=== PATIENT | male | born 1950 | race Caucasian/White ===

== ENCOUNTER 2020-01-21 08:01 | Inpatient (IN) | payer MEDICARE, SELFPAY ==
[2020-01-21] VITALS (53 sets, daily range): BP systolic 143–219; BP diastolic 56–133; PULSE 64–106; RESP 8–33; TEMP 36–37.1; O2SAT 90–100; BMI 30.8
--- NOTE | ~2020-01-21 | XR_ITS ---
EXAMINATION: XR chest 1V portable EXAM DATE: 01/31/2020 09:42 INDICATION: Hypertension. Stroke/bypass. CHF. TECHNIQUE: Portable AP frontal chest x-ray was obtained. Comparison is made to prior examination from 01/28/2020. FINDINGS: Sternotomy wires are present without findings to suggest sternal dehiscence. Improvement in the mild cardiomegaly. Improvement in the pulmonary vascular congestion and pulmonary edema. Still m ild pulmonary edema suspected along with small left pleural effusion. No pneumothorax or confluent co nsolidation. There are no osseous abnormalities identified. IMPRESSION: Improving CHF exacerbation. Reviewed, dictated and finalized at location A. IMPRESSION: Improving CHF exacerbation.
--- NOTE | ~2020-01-21 | XR_ITS ---
EXAMINATION: XR chest 1V portable EXAM DATE: 01/21/2020 09:26 INDICATION: Respiratory distress. TECHNIQUE: Portable AP frontal chest x-ray was obtained. Comparison is made to prior examination from 11/12/2018. FINDINGS: Sternotomy wires are present without findings to suggest sternal dehiscence. Sternotomy wir es are present without findings to suggest sternal dehiscence. The cardiac silhouette is enlarged. Th ere is pulmonary vascular congestion. No confluent consolidation. Possible small left pleural effusio n. There are bony degenerative changes. IMPRESSION: Possible mild CHF exacerbation. Reviewed, dictated and finalized at location B.
--- NOTE | ~2020-01-21 | XR_ITS ---
EXAMINATION: XR chest 2V DATE: 01/27/2020 13:27 INDICATION: Worsening shortness of breath. TECHNIQUE: Frontal and lateral views of the chest were obtained. COMPARISON: Chest single view 01/21/2020, chest CT 01/21/2020 FINDINGS: There are small pleural effusions. There are airspace opacities in all right lung zones and in left mid and lower lung zones with a perihilar predominance. There are airspace opacities at left lung base. No pneumothorax. Cardiomegaly is noted. Median sternotomy wires and mediastinal surgical clips are seen, likely from prior coronary artery bypass grafting. IMPRESSION: 1. Worsened diffuse lung disease, likely a combination of pulmonary edema and left basilar atelectasi s. Pneumonia cannot be excluded. 2. Small pleural effusions. 3. Cardiomegaly. Reviewed, dictated and finalized at location A. IMPRESSION: 1. Worsened diffuse lung disease, likely a combination of pulmonary edema and l eft basilar atelectasis. Pneumonia cannot be excluded. 2. Small pleural effusions. 3. Cardiomegaly.
--- NOTE | ~2020-01-21 | XR_ITS ---
XR chest 1V portable DATE: 01/28/2020 11:16 INDICATION: Chest pain, shortness of breath TECHNIQUE: Portable upright AP chest on 01/28/2020 at 1107 hours COMPARISON: 01/27/2020 2 view chest FINDINGS: Status post sternotomy. Cardiomegaly. There is pulmonary vascular congestion and redistribution. There is prominence of the m inor fissure consistent with subpleural edema. There are bilateral pulmonary infiltrates, more promin ent centrally, right greater than left, suggesting pulmonary edema. There is left retrocardiac lower lobe infiltrate and/or atelectasis. Small pleural effusions are suggested. IMPRESSION: No significant change since 01/18/2020 Reviewed, dictated and finalized at location B.
--- NOTE | ~2020-01-21 | US_ITS ---
EXAMINATION:US venous doppler LE BI INDICATION:Pulmonary embolism TECHNIQUE: Multiple grayscale, color flow and Doppler images of the right and left lower extremity de ep venous systems were obtained and reviewed. COMPARISON:No prior studies for comparison. FINDINGS: The common femoral, superficial femoral and popliteal veins demonstrate normal respiratory variation, augmentation and compressibility. Color flow is also seen within the posterior tibial, pe roneal, greater saphenous and profunda veins. IMPRESSION: 1: No lower extremity deep venous thrombosis. Reviewed, dictated and finalized at location A.
--- NOTE | ~2020-01-21 | CT_ITS ---
EXAMINATION: CTA chest abdomen pelvis EXAM DATE: 01/21/2020 11:01 INDICATION: Dyspnea, hypoxemia, on dialysis. AAA history. TECHNIQUE: Spiral CT angiogram of the chest, abdomen and pelvis was performed following intravenous i njection of 100 mL Omnipaque 350. Axial, coronal and sagittal images were reviewed. Coronal maximum intensity pixel images of chest reviewed. Maximum intensity projection 3-D reconstructions of the ao rta were created by the technologist on dedicated workstation. The dose-length product (DLP) for th is examination was 1640.37 mGy-cm. The exposure was tailored according to patient size (auto mA expo sure control), and iterative reconstruction (ASIR) was used as additional dose reduction technique. C omparison is made to prior examination from 10/31/2018. FINDINGS: There is right lower lobe intralobar pulmonary embolus, and another in the right upper lobe , low clot burden. Thoracic aorta is normal in caliber. There is no aortic dissection. There is mid a bdominal aortic aneurysm at 4.2 cm, not significantly changed. CHEST: Some scattered vague bilateral upper lobe regions of groundglass opacity, could be edema or i nfection. Less amount of this in the lingula. COVID-19 not excludable. There is cardiomegaly, with sm [id number] pleural effusions and adjacent compressive atelectasis. Pulmonary vascular congestion . No pericardial effusion. Tracheobronchial tree is patent. There is no mediastinal, hilar or axil ana lymphadenopathy. There is no pneumothorax. Heart normal in size. There are sternotomy wire s, and cardiac/coronary surgical changes. Correlate with prior history. ABDOMEN PELVIS: Chronic benign splenic cystic lesion and scattered splenic granulomas. The liver, adr enal glands, pancreas are unremarkable. There are gallstones within an otherwise unremarkable gallbl adder. No evidence of obstructive biliary disease. Moderate right, mild to moderate left renal atro phy. There is right renal peripelvic cyst measuring about 5 cm. The prostate is unremarkable. The bl adder is unremarkable. There is no retroperitoneal or pelvic lymphadenopathy. Small to moderate-si zed umbilical fat-containing hernia. The appendix is not positively visualized. There is no pericecal inflammatory change to suggest appe ndicitis. There is mild sigmoid colonic diverticulosis. There is no adjacent inflammatory change to suggest diverticulitis. The stomach and small bowel are unremarkable. There is expected amount of co lonic stool. No free intraperitoneal gas. There are no osteoblastic or osteolytic lesions identif ied. IMPRESSION: 1. Couple of small right-sided pulmonary emboli. 2. Findings consistent with CHF exacerbation including cardiomegaly, small to moderate pleural effus ions, mild pulmonary edema versus acute infection. COVID-19 not excludable. 3. Stable mid abdominal aorta saccular aneurysm at 4.2 cm. 4. Mild colonic diverticulosis. 5. Umbilical hernia. I discussed pulmonary emboli, findings consistent with CHF exacerbation, COVID-19 not excludable with Chris in the emergency room at 01/21/2020 11:14 CDT. He took notes, stated he would pass the message o n to Dr. Arguelles. Reviewed, dictated and finalized at location B. IMPRESSION: 1. Couple of small right-sided pulmonary emboli. 2. Findings consistent with CHF exacerbation including cardiomegaly, small to moderate pleural effusions, mild pulmonary edema versus acute infection. COVID- 19 not excludable. 3. Stable mid abdominal aorta saccular aneurysm at 4.2 cm. 4. Mild colonic diverticulosis. 5. Umbilical hernia. I discussed pulmonary emboli, findings consistent with CHF exacerbation, COVID- 19 not excludable with Chris in the emergency room at
--- NOTE | 2020-01-21 08:05 | ED.SOB ---
HPI - SOB/Dyspnea General Chief Complaint: Shortness of Breath/Dyspnea Stated Complaint: sob during dialysis Time Seen by Provider: 01/21/20 08:05 Source: patient and EMS Mode of arrival: EMS Limitations: no limitations History of Present Illness HPI Narrative: Patient is a 69-year-old male who presents for evaluation of shortness of breath. Patient states that he was short of breath walking into dialysis this morning but his dyspnea worsened throughout the beginning of his dialysis session. Patient at his dialysis session this morning had approximately half a liter removed before he developed acute dyspnea and was transferred here for evaluation. Patient was placed on a nonrebreather in route but able to be weaned to 3 L oxygen via nasal cannula at our facility. Patient denied any chest pain, he reports dry cough and feeling sweaty. He denies fever. He states that he was in his usual state of health yesterday. He denies back pain, abdominal pain, no ripping or tearing sensation to the flanks. No pain, numbness or weakness in his lower extremities. Related Data Allergies Allergy/AdvReac Type Severity Reaction Status Date / Time Penicillins Allergy Unknown Unknown Verified 01/17/19 15:46 Review of Systems Review of Systems: Narrative: CONSTITUTIONAL: Denies fever, chills, or sweats. EYES: Denies visual changes, redness, or discharge. ENT: Denies rhinorrhea, congestion, sore throat, or otalgia. CARDIOVASCULAR: Denies chest pain, palpitations, or edema. RESPIRATORY: Reports shortness of breath GASTROINTESTINAL: Denies abdominal pain, nausea, vomiting, or diarrhea. GENITOURINARY: Denies dysuria or hematuria. SKIN: Denies rash or itching. MUSCULOSKELETAL: Denies back pain, joint pain, or myalgia. NEUROLOGIC: Denies headache, numbness, or weakness. [facility] Past Medical History Medical History Congestive heart failure CVA (cerebral vascular accident) Dialysis patient End stage renal disease Hypertension Surgical History Surgical History (Updated 01/21/20 @ 08:14 by Sweta Arguelles MD) History of tonsillectomy Social History Social History (Updated 01/21/20 @ 08:14 by Sweta Arguelles MD) Smoking status: Former smoker Tobacco type: cigarettes Substance use: never Gender identity (if verbalized by the patient): Male Exam Narrative: Exam Narrative: GENERAL: Awake, alert, diaphoretic, uncomfortable appearing HEAD: Normocephalic, atraumatic. EYES: PERRLA and EOMI. ENT: Nares clear, no rhinorrhea or epistaxis. Mucous membranes moist. NECK: Supple. CHEST: Moderate respiratory distress, tachypneic with labored breathing, crackles bilaterally, hypoxemic HEART: Tachycardic rate, sinus rhythm ABDOMEN:Non distended, non tender EXTREMITIES: Normal range of motion. SKIN: Warm, dry, no rash. NEURO:No focal deficits. Alert and oriented x3 Course Vital Signs Vital signs: Vital Signs Pulse Rate 106 H 01/21/20 08:07 Respiratory Rate 33 H 01/21/20 08:07 Pulse Oximetry 90 01/21/20 08:07 Temperature 36.9 C 01/21/20 08:15 Pulse Rate 76 01/21/20 10:30 Respiratory Rate 13 01/21/20 10:30 Blood Pressure 157/68 H 01/21/20 10:31 Pulse Oximetry 99 01/21/20 10:30 MDM - SOB/Dyspnea MDM Narrative Medical decision making narrative: Patient presented for evaluation of shortness of breath from dialysis session. At the time of assessment, patient is in respiratory distress, crackles bilaterally, and wheeze work of breathing and hypoxemia. Given history, was concern for fluid overloaded state. IV access obtained, labs are drawn, patient was given nitroglycerin, Lasix and placed on BiPAP. At that point he had not been having any infectious type symptoms and had just been feeling short of breath going to dialysis per the patient. Laboratory results show history of end-stage renal disease, no severe electrolyte derangements. EKG without acute ischem
--- NOTE | 2020-01-21 08:21 | ECG_ITS ---
Measurements Intervals [place] Rate: 104 P: -75 IN: 137 QRS: 86 QRSD: 120 T: -78 QT: 364 QTc: 481 Interpretive Statements SINUS TACHYCARDIA INTRAVENTRICULAR CONDUCTION DELAY DELAYED PRECORDIAL R/S TRANSITION ST-T WAVE ABNORMALITY IN INFERIOR LEADS- CONSIDER ISCHEMIA BASELINE ARTIFACT- I, II, III, AVR, AVL, AVF, V4-V6 ABNORMAL ECG Electronically Signed On 01-21-2020 8:31:01 CDT by Cristhian Crane D.O.
[2020-01-21 09:04] LABS: Alveolar/Arterial O2 Gradient 72.4 mmHg; Base Excess ABG -0.6 mEq/l (+/-2.0); Carboxyhemoglobin 2.6 % THb (0-2.0); Device NON-INVASIVE VENT; Fractional Inspired Oxygen 30 %; HCO3 ABG 24.3 mEq/l (22.0-26.0); Oxygen Content ABG 16.7 %vol (16.0-22.0); Oxygen Saturation ABG 97.1 % (95.0-100.0); Oxyhemoglobin 93.8 % THb (90.0-100.0); PCO2 ABG 40.9 mmHg (35.0-45.0); PO2 ABG 93.4 mmHg (80.0-100.0); PO2 FiO2 Ratio Arterial Blood 3.11 %; Reduced Hemoglobin 3.6 %THb (0-5.0); Site Drawn LEFT BRACHIAL; Total Hemoglobin 12.6 g/dL (12.0-18.0); pH ABG 7.392 (7.350-7.450)
[2020-01-21 09:07] LABS: Non-Invasive Expiratory Pressure 5 CMH2O; Non-Invasive Inspiratory Pressure 12 CMH2O; Non-Invasive Vent Rate 4 /MIN
[2020-01-21] MEDS: NITROGLYCERIN SL 0.4 MG TABLET SUBLINGUAL (09:16)
[2020-01-21] MEDS: FUROSEMIDE INJ 40 MG/4 ML VIAL IV PUSH (09:16)
[2020-01-21 09:28] LABS: Basophils Absolute Auto 0.1 K/mm3 (0.0-0.1); Basophils Percent Auto 0.4 % (0.2-1.2); Eosinophils Absolute Auto 0.1 K/mm3 (0-0.3); Eosinophils Percent Auto 0.6 % (0-4.4); Hematocrit 33.8 % (42.0-52.0); Hemoglobin 11.5 g/dL (14.0-18.0); Immature Granulocyte Absolute 0.08 K/mm3 (0.00-0.031); Immature Granulocyte Percent A 0.6 % (0-0.5); Lymphocytes Absolute Auto 0.86 K/mm3 (0.9-3.2); Lymphocytes Percent Auto 6.3 % (18.3-44.2); Mean Corpuscular Hemoglobin 35.2 pg (26-34); Mean Corpuscular Volume 103.4 fl (80-100); Mean Platelet Volume 9.3 fl (7.4-10.4); Monocytes Percent Auto 6.9 % (2.6-8.5); Neutrophils Absolute Auto 11.6 K/mm3 (1.3-6.7); Neutrophils Percent Auto 85.2 % (45.5-73.1); Platelet Count Result 360 k/mm3 (150-375); Red Blood Count 3.27 M/mm3 (4.6-6.20); Red Cell Distribution Width 15.3 % (11.5-14.5); White Blood Count 13.7 K/mm3 (4.5-10.0)
[2020-01-21 09:40] LABS: INR 1.1; Lactic Acid Reflex 1.2 mmol/L (0.7-2.1); Prothrombin Time 13.9 Seconds (11.1-14.7)
[2020-01-21 09:41] LABS: Partial Thromboplastin Time 30.9 SECONDS (22.3-36.8)
[2020-01-21 09:42] LABS: CRP 2.2 mg/dL (<1.0)
[2020-01-21 09:44] LABS: D Dimer 1.43 ug/mL (<0.48)
[2020-01-21 09:54] LABS: Alanine Aminotransferase 11 U/L (4-50); Alkaline Phosphatase 80 U/L (38-126); Anion Gap 14 mmol/L (8-16); Aspartate Amino Transferase 20 U/L (17-59); Bilirubin,Total 0.5 mg/dL (0.2-1.3); Blood Urea Nitrogen 31 mg/dL (9-20); Calcium 8.3 mg/dL (8.4-10.2); Carbon Dioxide 25 mmol/L (22-30); Chloride 91 mmol/L (98-107); Estimated Glomerular Filt Rate 7; Glucose 230 mg/dL (75-110); Sodium 130 mmol/L (137-145)
[2020-01-21 09:55] LABS: NT Pro B Type Natriuretic Pept > 35000 PG/ML (5-100); Troponin I 0.035 ng/mL (0.000-0.034)
--- NOTE | 2020-01-21 12:20 | PC.NURSE ---
This patient, David Saleh, was admitted to Intensive Care Unit-4. Patient/family oriented to hospital policies and general routines including ID bracelet, bed and alarms, visiting hours, pain management, procedures, bathroom and other care routines, personal items, smoking policy, room service/diet, and visiting hours. Valuables list has been completed. Information on how to activate the Rapid Response Team has been discussed. Patient/Family are encouraged to report perceived risks to care and to ask questions if they do not understand what they are told or what they should do. Report receive from MADAI Michaud @ [phone]
[2020-01-21] MEDS: HEPARIN SODIUM 5,000 UNITS/ML VIAL 4000 UNITS IV PUSH ×2 (12:41→19:26)
[2020-01-21] MEDS: HEPARIN SOD/D5W 100 UNITS/ML 25,000 UNITS/250 ML BAG 10 UNITS IV CONT (12:44)
--- NOTE | 2020-01-21 13:06 | PC.NURSE ---
Pt transferred to ICU with heparin drip running at initial rate
--- NOTE | 2020-01-21 14:00 | PM.IMHP ---
H&P: HPI History of Present Illness Date/Time: 01/21/20 14:00 Chief complaint: Shortness of breath. Narrative: David Saleh is a 69-year-old male with multiple medical problems including paroxysmal atrial fibrillation on long-term anticoagulation, diastolic congestive heart failure, end-stage renal disease on hemodialysis, obstructive sleep apnea, hypertension, and hyperlipidemia who presented to the emergency department earlier today via EMS from dialysis for evaluation of shortness of breath. He felt in his usual state of health last night when he went to bed, but this morning when he got up to go to dialysis he was feeling quite weak. About an hour and a half into dialysis he began to feel extremely short of breath, was hypoxic, and was sent to the emergency department. with further questioning he has had a dry cough for the past day or so but he really has no other complaints. He specifically denies fever and chills although he has had some sweats. No sinus congestion, rhinorrhea, otalgia, or odynophagia. No recent travel or sick contacts. No anosmia or dysgeusia. He denies chest pain and pleuritic pain. No significant lower extremity edema. He denies lightheadedness and dizziness. No nausea, vomiting, or diarrhea. He denies dysuria. Review of Systems Review of Systems: Narrative: Twelve systems were reviewed with pertinent positives and negatives as per HPI. Some sweats but no fever. He denies headache. he has chronic, mild right-sided weakness from previous stroke. He had a fall last week in which she sustained some abrasions to his elbows, knees, and fingers. There was no head trauma or loss of consciousness. Except as documented, all other systems were reviewed and are negative. [facility] Past Medical History Medical History (Updated 01/21/20 @ 22:20 by Rena Payton PA-C) Aneurysm of infrarenal abdominal aorta Stable mid abdominal aortic saccular aneurysm measuring 4.2 cm on imaging dated 01/21/2020. Bacterial infection due to Proteus mirabilis (~10/2018) Secondary to infected dialysis catheter. C. difficile diarrhea (~04/2018) Cerebrovascular accident Post CABG with residual right-sided weakness. Chronic anemia Chronic respiratory failure with hypoxia, on home oxygen therapy On 2 L nasal cannula. Congestive heart failure Echocardiogram in October 2018 showed normal left ventricular systolic function and size with pseudonormal diastolic dysfunction grade 2 ejection fraction of 60%. Coronary artery disease Cardiac catheterization in March 2018 doing showed total occlusion of the obtuse and left main with severe disease in the LAD in which she was transferred to [facility] for urgent 2 vessel CABG. Current use of intermission coordinator anticoagulation On warfarin for stroke prophylaxis given atrial fibrillation. Depression with anxiety End-stage renal disease on hemodialysis Dialysis on Sunday, Sunday, and Sunday. Essential hypertension History of diabetes mellitus No longer on medication. Hypertension Ischemic cardiomyopathy Ejection fraction as low as 35% with improvement on recent echocardiogram as above. 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 Pseudomonas pneumonia STEMI (ST elevation myocardial infarction) Surgical History Surgical History (Updated 01/21/20 @ 22:04 by Rena Payton PA-C) History of appendectomy History of cardiac catheterization History of percutaneous endoscopic gastrostomy Subsequently removed. History of tonsillectomy History of tracheostomy History of two vessel coronary artery bypass graft Family History Family History (Updated 01/21/20 @ 22:04 by Rena Payton PA-C) Other Heart disease Social History Social History (Updated 01/21/20 @ 22:06 by Rena Payton PA-C) Social History:
[2020-01-21] MEDS: SODIUM CHLORIDE 0.9% IV 1,000 ML 999 ML IV CONT (15:32)
[2020-01-21 15:43] LABS: Troponin I 0.067 ng/mL (0.000-0.034)
--- NOTE | 2020-01-21 16:51 | PM.PNNEP ---
Progress Note: A&P Assessment and Plan (1) End stage renal disease: Code(s): N18.6 - End stage renal disease Status: Acute Assessment and Plan: HD today and continue M/W/F schedule while hospitalized follow electrolytes, volume status. and clearance FULL CONSULT to follow Subjective Date/time seen: 01/21/20 16:51 Tolerating dialysis at the time of my visit (seen on HD at ~ 4:15PM); no apparent distress noted. Objective Data Vital Signs Vital Signs: Vital Signs Temp Pulse Resp BP Pulse Ox 01/21/20 16:45 79 01/21/20 16:30 74 170/70 H 01/21/20 16:15 73 168/74 H 01/21/20 16:00 37.1 C 75 12 168/70 H 97 01/21/20 15:45 74 176/76 H 01/21/20 15:30 75 166/64 H 01/21/20 15:15 77 165/90 H 01/21/20 15:00 77 173/67 H 01/21/20 14:54 77 176/79 H 01/21/20 14:20 36.9 C 98 19 152/85 H 98 01/21/20 14:11 75 18 98 01/21/20 14:00 74 01/21/20 13:43 72 01/21/20 13:30 169/89 H 01/21/20 13:15 185/76 H 01/21/20 13:00 36.4 C L 71 14 185/87 H 100 01/21/20 12:33 64 10 L 164/72 H 100 01/21/20 11:50 67 11 L 100 01/21/20 10:31 157/68 H 01/21/20 10:30 76 13 99 01/21/20 10:16 79 12 162/68 H 98 01/21/20 10:15 80 12 95 01/21/20 10:01 76 16 190/81 H 97 01/21/20 10:00 76 17 01/21/20 09:46 80 13 189/84 H 100 01/21/20 09:45 79 12 99 01/21/20 09:31 81 17 172/72 H 100 01/21/20 09:30 81 12 01/21/20 09:16 77 16 179/77 H 09/23/20 09:15 77 12 01/21/20 09:00 12 01/21/20 08:50 81 15 100 01/21/20 08:46 86 18 158/82 H 01/21/20 08:45 84 17 01/21/20 08:32 99 29 H 189/102 H 01/21/20 08:30 100 17 01/21/20 08:20 101 H 01/21/20 08:19 99 01/21/20 08:17 101 H 29 H 219/91 H 97 01/21/20 08:15 36.9 C 100 27 H 143/113 H 95 01/21/20 08:08 106 H 23 H 145/133 H 94 01/21/20 08:07 106 H 33 H 90 Intake/Output Intake/Output: Intake & Output 01/18/20 01/19/20 01/20/20 01/21/20 23:59 23:59 23:59 23:59 Output Total 150 Balance -150 Meds/Results Medications: Active Medications Generic Name Dose Route Start Last Admin Trade Name Freq PRN Reason Stop Dose Admin Heparin Sodium (Porcine) 4,000 units 01/21/20 11:33 Heparin Sodium IV PUSH PRN PRN aPTT less than 55 seconds Heparin Sodium (Porcine) 4,000 units 01/21/20 11:33 Heparin Sodium IV PUSH PRN PRN aPTT 55 - 70 seconds Albumin Human 50 mls @ 999 mls/hr 01/21/20 10:41 Albutein IVPB 02/20/20 10:42 Q10M PRN HYPOTENSION Heparin Sodium/Dextrose 25,000 units in 250 mls @ 10 mls/hr 01/21/20 12:30 01/21/20 12:44 Heparin Sodium/D5w 100 Units/Ml IV CONT 1,000 units/hr .Q24H LUDWIG 10 mls/hr Administration Protocol 1,000 UNITS/HR Acetaminophen 1,000 mg in 100 mls @ 400 mls/hr 01/21/20 11:36 Ofirmev 1,000 Mg Ivpb IVPB 01/22/20 11:37 Q6H PRN Mild Pain (1-3) or Fever Ondansetron HCl 4 mg 01/21/20 11:36 Zofran Inj IV PUSH Q4H PRN Nausea Radiology Results: ITS Impressions Chest X-Ray 01/21/20 09:30 IMPRESSION: Possible mild CHF exacerbation. Chest/Abdomen/Pelvis CTA 01/21/20 11:07 IMPRESSION: 1. Couple of small right-sided pulmonary emboli. 2. Findings consistent with CHF exacerbation including cardiomegaly, small to moderate pleural effusions, mild pulmonary edema versus acute infection. COVID-19 not excludable. 3. Stable mid abdominal aorta saccular aneurysm at 4.2 cm. 4. Mild colonic diverticulosis. 5. Umbilical hernia. I discussed pulmonary emboli, findings consistent with CHF exacerbation, COVID-19 not excludable with Chris in the emergency room at 01/21/2020 11:14 CDT. He took notes, stated he would pass the message on to Dr. Arguelles. Labs Labs: Laboratory Tests 01/21/20 09:14 01/21/20 09:14
[2020-01-21 18:42] LABS: Troponin I 0.084 ng/mL (0.000-0.034)
[2020-01-21 18:58] LABS: Partial Thromboplastin Time 41.6 SECONDS (22.3-36.8)
[2020-01-21] MEDS: WARFARIN (*PBKC) 3 MG TABLET 9 MG PO (22:37)
[2020-01-21] MEDS: LOSARTAN POTASSIUM 25 MG TABLET PO (22:37)
[2020-01-21] MEDS: LEVALBUTEROL HFA (*SP) 15 GM INHALER 2 PUFF INHALATION (22:38)
[2020-01-21] MEDS: FLUTICASONE PROPIONATE 0.05% NA SPR 16 GM BTL (*BKC) 2 SPRAY NASAL (22:38)
[2020-01-21] MEDS: GABAPENTIN 100 MG CAPSULE 200 MG PO (22:48)
[2020-01-22] VITALS (17 sets, daily range): BP systolic 123–153; BP diastolic 47–64; PULSE 63–86; RESP 14–18; TEMP 36.1–37; O2SAT 95–100
[2020-01-22 01:07] LABS: Partial Thromboplastin Time 75.8 SECONDS (22.3-36.8)
--- NOTE | 2020-01-22 01:09 | PC.NURSE ---
PTT therapeutic. No change in rate or bolus administered.
[2020-01-22 02:13] LABS: SARS-CoV-2 RNA PCR Negative
[2020-01-22 07:26] LABS: Basophils Percent Auto 0.1 % (0.2-1.2); Hematocrit 31.8 % (42.0-52.0); Hemoglobin 10.8 g/dL (14.0-18.0); Immature Granulocyte Absolute 0.08 K/mm3 (0.00-0.031); Immature Granulocyte Percent A 0.6 % (0-0.5); Lymphocytes Absolute Auto 1.17 K/mm3 (0.9-3.2); Lymphocytes Percent Auto 8.1 % (18.3-44.2); Mean Corpuscular Hemoglobin 34.8 pg (26-34); Mean Corpuscular Volume 102.6 fl (80-100); Mean Platelet Volume 9.4 fl (7.4-10.4); Monocytes Absolute Auto 1.3 K/mm3 (0.1-0.6); Monocytes Percent Auto 8.9 % (2.6-8.5); Neutrophils Absolute Auto 11.9 K/mm3 (1.3-6.7); Neutrophils Percent Auto 82.3 % (45.5-73.1); Platelet Count Result 352 k/mm3 (150-375); Red Cell Distribution Width 15.2 % (11.5-14.5); White Blood Count 14.4 K/mm3 (4.5-10.0)
[2020-01-22 07:38] LABS: Partial Thromboplastin Time 36.7 SECONDS (22.3-36.8)
[2020-01-22 07:46] LABS: INR 1.2; Prothrombin Time 14.8 Seconds (11.1-14.7)
[2020-01-22] MEDS: HEPARIN SODIUM 5,000 UNITS/ML VIAL 4000 UNITS IV PUSH (08:05)
[2020-01-22] MEDS: METOPROLOL SUCCINATE EXT REL 50 MG TABCR PO (08:06)
[2020-01-22] MEDS: GABAPENTIN 100 MG CAPSULE 200 MG PO ×3 (08:06→16:11)
[2020-01-22] MEDS: AMIODARONE HCL 200 MG TABLET PO (08:06)
[2020-01-22 08:13] LABS: Glucose Point of Care 170 (65-105)
[2020-01-22 08:42] LABS: Alanine Aminotransferase 11 U/L (4-50); Albumin Level 3.8 g/dL (3.5-5.1); Alkaline Phosphatase 75 U/L (38-126); Anion Gap 10 mmol/L (8-16); Aspartate Amino Transferase 14 U/L (17-59); Bilirubin,Total 0.5 mg/dL (0.2-1.3); Blood Urea Nitrogen 27 mg/dL (9-20); Calcium 8.9 mg/dL (8.4-10.2); Carbon Dioxide 27 mmol/L (22-30); Chloride 93 mmol/L (98-107); Estimated CRCL calculation 11 ml/min; Estimated Glomerular Filt Rate 8; Glucose 174 mg/dL (75-110); Lactate Dehydrogenase 204 U/L (313-618); Magnesium 1.9 mg/dL (1.6-2.3); Potassium 4.4 mmol/L (3.4-5.0); Sodium 130 mmol/L (137-145)
[2020-01-22] MEDS: HEPARIN SOD/D5W 100 UNITS/ML 25,000 UNITS/250 ML BAG 18 UNITS IV CONT (09:09)
--- NOTE | 2020-01-22 10:55 | PM.IMPN ---
Progress Note: A&P Assessment and Plan (1) Pulmonary embolism: Qualifiers: Pulmonary embolism type: unspecified Chronicity: acute Acute cor pulmonale presence: without acute cor pulmonale Qualified Code(s): I26.99 - Other pulmonary embolism without acute cor pulmonale Code(s): I26.99 - Other pulmonary embolism without acute cor pulmonale Status: Acute Assessment and Plan: CTA chest shows right lower lobe and right upper lobe pulmonary emboli with low clot burden. INR subtherapeutic on long-term warfarin has been on hold secondary to dental surgery. Resume his home warfarin and continue IV heparin until INR is therapeutic. He is hemodynamically stable today and can be moved out of [facility]. (2) Pneumonia: Qualifiers: Pneumonia type: due to unspecified organism Laterality: bilateral Lung location: upper lobe of lung Qualified Code(s): J18.9 - Pneumonia, unspecified organism Code(s): J18.9 - Pneumonia, unspecified organism Status: Acute Assessment and Plan: Started on ceftriaxone and doxycycline for suspected pneumonia. Sputum culture ordered. Pneumococcal and legionella antigens are pending. Blood cultures growing gram positive cocci in 1 bottle. Will stop Rocephin and start vancomycin until this grows out and repeat blood cultures. Continue supportive care with nebulized bronchodilator therapy and supplemental O2 as needed. (3) Acute and chronic respiratory failure: Qualifiers: Respiratory failure complication: hypoxia Qualified Code(s): J96.21 - Acute and chronic respiratory failure with hypoxia Code(s): J96.20 - Acute and chronic respiratory failure, unspecified whether with hypoxia or hypercapnia Status: Acute Assessment and Plan: Improved. Patient now tolerating room air this morning. He reports using 2L/min supplemental O2 as needed when he feels short of breath at home. (4) Subtherapeutic international normalized ratio (INR): Code(s): R79.1 - Abnormal coagulation profile Status: Acute Assessment and Plan: INR 1.2. On long-term anticoagulation with warfarin for paroxysmal atrial fibrillation. Patient reports he has been off warfarin for about 4 weeks secondary to a dental surgery. Resume his warfarin 9 mg daily and continue IV heparin. Monitor INR daily. (5) Suspected COVID-19 virus infection: Code(s): Z20.828 - Contact with and (suspected) exposure to other viral communicable diseases Status: Ruled-out Assessment and Plan: COVID negative. (6) Paroxysmal atrial fibrillation: Code(s): I48.0 - Paroxysmal atrial fibrillation Status: Acute Assessment and Plan: Rate controlled on home amiodarone, metoprolol. Continue warfarin. (7) Obstructive sleep apnea on CPAP: Code(s): G47.33 - Obstructive sleep apnea (adult) (pediatric); Z99.89 - Dependence on other enabling machines and devices Status: Acute Assessment and Plan: CPAP. (8) Essential hypertension: Code(s): I10 - Essential (primary) hypertension Status: Acute Assessment and Plan: stable. Last 132/59. Continue home losartan, metoprolol. Monitor BP and adjust treatment as needed. (9) End-stage renal disease on hemodialysis: Code(s): N18.6 - End stage renal disease; Z99.2 - Dependence on renal dialysis Status: Chronic Assessment and Plan: End-stage renal disease on hemodialysis. His seafood fisherman is Dr. Cardenas and he gets hemodialysis on MWF at [facility]. Appreciate nephrology recommendations.
[2020-01-22 11:55] LABS: Glucose Point of Care 190 (65-105)
[2020-01-22 15:07] LABS: Partial Thromboplastin Time 148.8 SECONDS (22.3-36.8)
--- NOTE | 2020-01-22 16:11 | PM.CNNEP ---
Assessment and Plan Assessment and plan (1) End stage renal disease: Code(s): N18.6 - End stage renal disease Status: Chronic Assessment and Plan: HD tomorrow and continue M/W/F schedule follow electrolytes, volume status, and clearance (2) Respiratory failure: Code(s): J96.90 - Respiratory failure, unspecified, unspecified whether with hypoxia or hypercapnia Status: Acute Assessment and Plan: clinically better suspect due to a combination of #3, pneumonia(?), and pulmonary emboli follow respiratory status (3) Diastolic CHF: Code(s): I50.30 - Unspecified diastolic (congestive) heart failure Status: Chronic Assessment and Plan: some exacerbation noted by admission findings fluid status better s/p aggressive ultrafiltration with HD yesterday continue current therapy (4) Essential hypertension: Code(s): I10 - Essential (primary) hypertension Status: Chronic Assessment and Plan: reasonable control follow trend of hemodynamics with current medications (5) Chronic anemia: Code(s): D64.9 - Anemia, unspecified Status: Chronic Assessment and Plan: at goal for ESRD follow H/H Epogen with HD (6) Pulmonary embolism: Qualifiers: Acute cor pulmonale presence: without acute cor pulmonale Chronicity: acute Pulmonary embolism type: unspecified Qualified Code(s): I26.99 - Other pulmonary embolism without acute cor pulmonale Code(s): I26.99 - Other pulmonary embolism without acute cor pulmonale Status: Acute Assessment and Plan: as noted by CT of chest on IV heparin and coumadin follow INR Will continue to follow. History of Present Illness Reason for Consult Consult date: 01/22/20 Reason for consult: end stage renal disease Chief Complaint Chief complaint: Shortness of breath. History of Present Illness Narrative: The patient is a 69-year-old male with a past medical history as outlined below who presented to [facility] ER yesterday morning with acute shortness of breath. The evening before admission he was in his usual state of health. He woke up the next morning feeling quite weak but presented to his outpatient dialysis unit for his scheduled dialysis treatment. About an hour and a half into his dialysis treatment he became acutely more short of breath and was noted to be quite hypoxic so his dialysis treatment was aborted and he was sent to the ER via EMS for further evaluation. Further questioning also notes a dry cough for the past day or so but no other acute complaints with regard to fevers, chills, nausea, vomiting, rhinorrhea, nasal congestion, palpitations, dizziness, lightheadedness, or diarrhea. Workup and evaluation emergency room demonstrated the patient to be hemodynamically stable but was clearly hypoxic and in mild respiratory distress. He was switched from supplemental oxygen to BiPAP and given IV diuretics given his chest x-ray findings with some improvement in his respiratory status. Given the acuity of his shortness of breath, he had a CT scan of his chest with IV contrast for PE protocol and he was discovered to have pulmonary emboli along with evidence of pulmonary vascular congestion and questionable pneumonia. He was subsequently transferred to the intensive care unit as he was also being ruled out for COVID-19 infection. Since his admission, he received dialysis yesterday afternoon and was started on heparin drip given the aforementioned CT scan findings. He was ruled out for COVID-19 infection and with improvement in his respiratory status, he was transferred out of the ICU. 1/2 blood cultures are growing gram-positive organisms so his antibiotics have been changed to IV vancomycin until these culture results are back although one could argue that this may be a contamination. Renal consultation was requested due to his end-stage renal disease
[2020-01-22 16:14] LABS: INR 1.2; Prothrombin Time 15.3 Seconds (11.1-14.7)
--- NOTE | 2020-01-22 16:19 | PC.NURSE ---
Ptt for 1400 came back high, held gtt for one hour and resumed with decrease in units from 1800 to 1500. Next ptt at 2220
[2020-01-22 16:25] LABS: Glucose Point of Care 231 (65-105)
[2020-01-22 17:34] LABS: Glucose Point of Care 222 (65-105)
[2020-01-22] MEDS: INSULIN ASPART (*BKC) 100 UNITS/ML SUB-Q (17:34)
[2020-01-22] MEDS: LEVALBUTEROL HFA (*SP) 15 GM INHALER 2 PUFF INHALATION (20:02)
--- NOTE | 2020-01-22 20:44 | PC.NURSE ---
This patient, David Saleh, was transferred to [ 241] on 01/22/20 at 2044. Personal belongings sent with patient. Belongings list checked and signed with receiving [RN ]. Report given to [ RN]. Appropriate documentation sent with patient.
--- NOTE | 2020-01-22 20:50 | PC.NURSE ---
RECEIVED PT FROM IMU PER WHEELCHAIR. VOICES NO C/O
[2020-01-22] MEDS: FLUTICASONE PROPIONATE 0.05% NA SPR 16 GM BTL (*BKC) 2 SPRAY NASAL (21:01)
[2020-01-22] MEDS: LOSARTAN POTASSIUM 25 MG TABLET PO (21:02)
[2020-01-22] MEDS: WARFARIN (*PBKC) 3 MG TABLET 9 MG PO (21:02)
[2020-01-22 22:29] LABS: Partial Thromboplastin Time 75.6 SECONDS (22.3-36.8)
[2020-01-23] VITALS (31 sets, daily range): BP systolic 125–171; BP diastolic 51–80; PULSE 54–72; RESP 12–20; TEMP 36.2–37.1; O2SAT 95–100
[2020-01-23 04:24] LABS: Basophils Percent Auto 0.2 % (0.2-1.2); Eosinophils Absolute Auto 0.2 K/mm3 (0-0.3); Eosinophils Percent Auto 1.1 % (0-4.4); Hematocrit 29.9 % (42.0-52.0); Hemoglobin 10.5 g/dL (14.0-18.0); Immature Granulocyte Absolute 0.08 K/mm3 (0.00-0.031); Immature Granulocyte Percent A 0.6 % (0-0.5); Lymphocytes Absolute Auto 2.04 K/mm3 (0.9-3.2); Lymphocytes Percent Auto 15.2 % (18.3-44.2); Mean Corpuscular HGB Conc 35.1 g/dl (32-36); Mean Corpuscular Hemoglobin 35.5 pg (26-34); Mean Platelet Volume 9.3 fl (7.4-10.4); Monocytes Absolute Auto 1.7 K/mm3 (0.1-0.6); Monocytes Percent Auto 12.9 % (2.6-8.5); Neutrophils Absolute Auto 9.4 K/mm3 (1.3-6.7); Platelet Count Result 332 k/mm3 (150-375); Red Blood Count 2.96 M/mm3 (4.6-6.20); White Blood Count 13.4 K/mm3 (4.5-10.0)
[2020-01-23 04:34] LABS: INR 1.2; Partial Thromboplastin Time 30.9 SECONDS (22.3-36.8); Prothrombin Time 15.3 Seconds (11.1-14.7)
[2020-01-23] MEDS: HEPARIN SOD/D5W 100 UNITS/ML 25,000 UNITS/250 ML BAG 15 UNITS IV CONT (04:43)
[2020-01-23 04:47] LABS: Anion Gap 11 mmol/L (8-16); Blood Urea Nitrogen 39 mg/dL (9-20); Calcium 8.2 mg/dL (8.4-10.2); Carbon Dioxide 26 mmol/L (22-30); Chloride 86 mmol/L (98-107); Estimated CRCL calculation 10 ml/min; Estimated Glomerular Filt Rate 7; Glucose 167 mg/dL (75-110); Magnesium 1.8 mg/dL (1.6-2.3); Potassium 4.4 mmol/L (3.4-5.0); Sodium 123 mmol/L (137-145)
[2020-01-23] MEDS: HEPARIN SODIUM 5,000 UNITS/ML VIAL 4000 UNITS IV PUSH ×2 (04:50→15:38)
[2020-01-23 06:16] LABS: Hemoglobin A1C 6.8 % (<5.7)
[2020-01-23 08:14] LABS: Glucose Point of Care 131 (65-105)
[2020-01-23 09:52] LABS: Hepatitis B Surface Antigen Negative (Negative)
[2020-01-23] MEDS: EPOETIN ALFA 2,000 UNITS/ML VIAL 2000 UNITS IV PUSH (10:56)
[2020-01-23] MEDS: EPOETIN ALFA 3,000 UNITS/ML VIAL 3000 UNITS IV PUSH (10:57)
[2020-01-23 11:19] LABS: Partial Thromboplastin Time 102.5 SECONDS (22.3-36.8)
--- NOTE | 2020-01-23 12:48 | P.PNNP_ITS ---
Progress Note: A&P Assessment and Plan (1) End stage renal disease: Code(s): N18.6 - End stage renal disease Status: Chronic Assessment and Plan: * HD today and continue M/W/F schedule * follow electrolytes, volume status, and clearance (2) Bacteremia due to coagulase-negative Staphylococcus: Code(s): R78.81 - Bacteremia; B95.7 - Other staphylococcus as the cause of diseases classified elsewhere Status: Acute Assessment and Plan: * admission cultures noted * on IV vancomycin * repeat blood culture negative (3) Respiratory failure: Code(s): J96.90 - Respiratory failure, unspecified, unspecified whether with hypoxia or hypercapnia Status: Acute Assessment and Plan: * clinically better * suspect due to a combination of #3, pneumonia(?), and pulmonary emboli * follow respiratory status (4) Diastolic CHF: Qualifiers: Heart failure chronicity: chronic Qualified Code(s): I50.32 - Chronic diastolic (congestive) heart failure Code(s): I50.30 - Unspecified diastolic (congestive) heart failure Status: Chronic Assessment and Plan: * some exacerbation noted by admission findings * fluid status better s/p aggressive ultrafiltration with HD yesterday * continue current therapy (5) Essential hypertension: Code(s): I10 - Essential (primary) hypertension Status: Chronic Assessment and Plan: * reasonable control * follow trend of hemodynamics with current medications (6) Chronic anemia: Code(s): D64.9 - Anemia, unspecified Status: Chronic Assessment and Plan: * at goal for ESRD * follow H/H * Epogen with HD (7) Pulmonary embolism: Qualifiers: Acute cor pulmonale presence: without acute cor pulmonale Chronicity: a cute Pulmonary embolism type: unspecified Qualified Code(s): I26.99 - Other pulmonary embolism without acute cor pulmonale Code(s): I26.99 - Other pulmonary embolism without acute cor pulmonale Status: Acute Assessment and Plan: * as noted by CT of chest * on IV heparin and coumadin * follow INR Will continue to follow. Subjective Date/time seen: 01/23/20 12:48 Patient tolerating dialysis treatment at the time of my visit (seen on HD at ~ 12:10PM); no apparent distress noted; breathing/respiratory status seems stable and is clearly better in comparison to admission; remains on heparin gtt; no events overnight or earlier this AM. Exam Narrative: Exam Narrative: General: WD/WN malein NAD Heart: normal S1 and S2; no rub Lungs: clear anteriorly; decreased at bases but some wheezing noted Abdomen: soft, nontender, nondistended, positive bowel sounds Extremities: no cyanosis or clubbing; no edema Skin: warm and dry Objective Data Vital Signs Vital Signs: Vital Signs Temp Pulse Resp BP Pulse Ox 01/23/20 12:00 66 158/69 H 01/23/20 11:45 64 147/68 H 01/23/20 11:30 61 150/67 H 01/23/20 11:15 59 L 147/68 H 01/23/20 11:00 58 L 149/64 H 01/23/20 10:45 56 L 137/63 01/23/20 10:30 58 L 134/56 L 01/23/20 10:15 58 L 141/66 H 01/23/20 10:00 57 L 142/68 H 01/23/20 09:45 59 L 141/67 H 01/23/20 09:30 56 L 151/67 H 01/23/20 09:15 56 L 143/65 H 01/23/20 09:00 56 L 151/70 H 01/23/20 08:52 63 1
--- NOTE | 2020-01-23 12:48 | PM.PNNEP ---
Progress Note: A&P Assessment and Plan (1) End stage renal disease: Code(s): N18.6 - End stage renal disease Status: Chronic Assessment and Plan: HD today and continue M/W/F schedule follow electrolytes, volume status, and clearance (2) Bacteremia due to coagulase-negative Staphylococcus: Code(s): R78.81 - Bacteremia; B95.7 - Other staphylococcus as the cause of diseases classified elsewhere Status: Acute Assessment and Plan: admission cultures noted on IV vancomycin repeat blood culture negative (3) Respiratory failure: Code(s): J96.90 - Respiratory failure, unspecified, unspecified whether with hypoxia or hypercapnia Status: Acute Assessment and Plan: clinically better suspect due to a combination of #3, pneumonia(?), and pulmonary emboli follow respiratory status (4) Diastolic CHF: Qualifiers: Heart failure chronicity: chronic Qualified Code(s): I50.32 - Chronic diastolic (congestive) heart failure Code(s): I50.30 - Unspecified diastolic (congestive) heart failure Status: Chronic Assessment and Plan: some exacerbation noted by admission findings fluid status better s/p aggressive ultrafiltration with HD yesterday continue current therapy (5) Essential hypertension: Code(s): I10 - Essential (primary) hypertension Status: Chronic Assessment and Plan: reasonable control follow trend of hemodynamics with current medications (6) Chronic anemia: Code(s): D64.9 - Anemia, unspecified Status: Chronic Assessment and Plan: at goal for ESRD follow H/H Epogen with HD (7) Pulmonary embolism: Qualifiers: Acute cor pulmonale presence: without acute cor pulmonale Chronicity: acute Pulmonary embolism type: unspecified Qualified Code(s): I26.99 - Other pulmonary embolism without acute cor pulmonale Code(s): I26.99 - Other pulmonary embolism without acute cor pulmonale Status: Acute Assessment and Plan: as noted by CT of chest on IV heparin and coumadin follow INR Will continue to follow. Subjective Date/time seen: 01/23/20 12:48 Patient tolerating dialysis treatment at the time of my visit (seen on HD at ~ 12:10PM); no apparent distress noted; breathing/respiratory status seems stable and is clearly better in comparison to admission; remains on heparin gtt; no events overnight or earlier this AM. Exam Narrative: Exam Narrative: General: WD/WN malein NAD Heart: normal S1 and S2; no rub Lungs: clear anteriorly; decreased at bases but some wheezing noted Abdomen: soft, nontender, nondistended, positive bowel sounds Extremities: no cyanosis or clubbing; no edema Skin: warm and dry Objective Data Vital Signs Vital Signs: Vital Signs Temp Pulse Resp BP Pulse Ox 01/23/20 12:00 66 158/69 H 01/23/20 11:45 64 147/68 H 01/23/20 11:30 61 150/67 H 01/23/20 11:15 59 L 147/68 H 01/23/20 11:00 58 L 149/64 H 01/23/20 10:45 56 L 137/63 01/23/20 10:30 58 L 134/56 L 01/23/20 10:15 58 L 141/66 H 01/23/20 10:00 57 L 142/68 H 01/23/20 09:45 59 L 141/67 H 01/23/20 09:30 56 L 151/67 H 01/23/20 09:15 56 L 143/65 H 01/23/20 09:00 56 L 151/70 H 01/23/20 08:52 63 135/55 L 01/23/20 08:40 36.6 C 54 L 20 145/60 H 01/23/20 08:00 72 01/23/20 04:00 36.2 C L 57 L 20 138/51 L 98 01/23/20 01:09 67 12 95 01/23/20 00:00 37.0 C 61 20 125/62 100 01/22/20 21:45 80 16 95 01/22/20 21:00 77 01/22/20 20:05 95 01/22/20 19:52 36.1 C L 65 18 147/63 H 100 01/22/20 16:17 68 18 98 01/22/20 16:00 36.9 C 68 18 140/64 98 Intake/Output Intake/Output: Intake & Output 01/20/20 01/21/20 01/22/20 01/23/20 23:59 23:59 23:59 23:59 Intake Total 192.4 2187.6 250 Output Total 4150 425 Balance -3957.6 1762.6 250
[2020-01-23] MEDS: AMIODARONE HCL 200 MG TABLET PO (13:16)
[2020-01-23] MEDS: GABAPENTIN 100 MG CAPSULE 200 MG PO ×2 (13:17→17:44)
[2020-01-23] MEDS: METOPROLOL SUCCINATE EXT REL 50 MG TABCR PO (13:17)
[2020-01-23] MEDS: MAGNESIUM OXIDE 200 MG TABLET PO ×2 (13:17→20:17)
[2020-01-23 13:53] LABS: Glucose Point of Care 113 (65-105)
--- NOTE | 2020-01-23 13:55 | PC.NURSE ---
Patient received from dialysis when it was noted that the patients heparin drip/IV pump had shut off and back on multiple times. When the patient was placed in the room the IV pump was off for an undetermined amount of time. Daniela MALHOTRA was called and informed of the situation at which time a STAT PTT was ordered and Heparin titration was determined based off of the newly drawn PTT.
[2020-01-23 14:37] LABS: INR 1.3; Prothrombin Time 15.4 Seconds (11.1-14.7)
[2020-01-23 14:39] LABS: Partial Thromboplastin Time 65.6 SECONDS (22.3-36.8)
--- NOTE | 2020-01-23 14:43 | PM.IMPN ---
Progress Note: A&P Assessment and Plan (1) Pulmonary embolism: Qualifiers: Acute cor pulmonale presence: without acute cor pulmonale Chronicity: acute Pulmonary embolism type: unspecified Qualified Code(s): I26.99 - Other pulmonary embolism without acute cor pulmonale Code(s): I26.99 - Other pulmonary embolism without acute cor pulmonale Status: Acute Assessment and Plan: CTA chest shows right lower lobe and right upper lobe pulmonary emboli with low clot burden. INR subtherapeutic on long-term warfarin had been on hold secondary to a dental surgery. Continue his home warfarin and continue IV heparin until INR is therapeutic, 2.0-3.0. (2) Pneumonia: Qualifiers: Pneumonia type: due to unspecified organism Laterality: bilateral Lung location: upper lobe of lung Qualified Code(s): J18.9 - Pneumonia, unspecified organism Code(s): J18.9 - Pneumonia, unspecified organism Status: Acute Assessment and Plan: Started on ceftriaxone and doxycycline for suspected pneumonia. Sputum culture ordered. Pneumococcal and legionella antigens are pending. Blood cultures grew coagulase negative Staph. Rocephin was stopped 01/21 and vancomycin was started, repeat blood cultures are pending. Continue supportive care with nebulized bronchodilator therapy and supplemental O2 as needed. (3) Acute and chronic respiratory failure: Qualifiers: Respiratory failure complication: hypoxia Qualified Code(s): J96.21 - Acute and chronic respiratory failure with hypoxia Code(s): J96.20 - Acute and chronic respiratory failure, unspecified whether with hypoxia or hypercapnia Status: Acute Assessment and Plan: Improved. Patient now tolerating room air this morning. He reports using 2L/min supplemental O2 as needed when he feels short of breath at home. (4) Subtherapeutic international normalized ratio (INR): Code(s): R79.1 - Abnormal coagulation profile Status: Acute Assessment and Plan: INR 1.2 still today. On long-term anticoagulation with warfarin for paroxysmal atrial fibrillation. Patient reports he had been off warfarin for about 4 weeks secondary to a dental surgery. Continue his warfarin 9 mg daily and continue IV heparin. Monitor INR daily. (5) Paroxysmal atrial fibrillation: Code(s): I48.0 - Paroxysmal atrial fibrillation Status: Acute Assessment and Plan: Rate controlled on home amiodarone, metoprolol. Continue warfarin. (6) Obstructive sleep apnea on CPAP: Code(s): G47.33 - Obstructive sleep apnea (adult) (pediatric); Z99.89 - Dependence on other enabling machines and devices Status: Acute Assessment and Plan: CPAP. (7) Essential hypertension: Code(s): I10 - Essential (primary) hypertension Status: Chronic Assessment and Plan: Stable. Last 144/65. Continue home losartan, metoprolol. Monitor BP and adjust treatment as needed. (8) End-stage renal disease on hemodialysis: Code(s): N18.6 - End stage renal disease; Z99.2 - Dependence on renal dialysis Status: Chronic Assessment and Plan: End-stage renal disease on hemodialysis. His access coordinator is Dr. Cardenas and he gets hemodialysis on MWF at [facility]. Appreciate nephrology recommendations. (9) Elevated troponin: Code(s): R79.89 - Other specified abnormal findings of blood chemistry Status: Acute Assessment and Plan: Troponins mildly elevated. Stable, no chest pain. Elevation may be in part related to end-stage renal disease and/or dem
[2020-01-23 16:59] LABS: Glucose Point of Care 180 (65-105)
[2020-01-23 19:05] LABS: Anion Gap 10 mmol/L (8-16); Blood Urea Nitrogen 19 mg/dL (9-20); Calcium 8.5 mg/dL (8.4-10.2); Carbon Dioxide 29 mmol/L (22-30); Chloride 92 mmol/L (98-107); Estimated CRCL calculation 19 ml/min; Estimated Glomerular Filt Rate 12; Glucose 202 mg/dL (75-110); Potassium 4.1 mmol/L (3.4-5.0); Sodium 131 mmol/L (137-145)
[2020-01-23] MEDS: FLUTICASONE PROPIONATE 0.05% NA SPR 16 GM BTL (*BKC) 2 SPRAY NASAL (20:16)
[2020-01-23] MEDS: LOSARTAN POTASSIUM 25 MG TABLET PO (20:16)
[2020-01-23] MEDS: WARFARIN (*PBKC) 3 MG TABLET 9 MG PO (20:17)
[2020-01-23 20:50] LABS: Partial Thromboplastin Time > 200.0 SECONDS (22.3-36.8)
[2020-01-23] MEDS: LEVALBUTEROL HFA (*SP) 15 GM INHALER 2 PUFF INHALATION (21:00)
[2020-01-23 21:49] LABS: Glucose Point of Care 171 (65-105)
[2020-01-23] MEDS: HEPARIN SOD/D5W 100 UNITS/ML 25,000 UNITS/250 ML BAG 18 UNITS IV CONT (22:10)
[2020-01-23] MEDS: NEOMYCIN/POLYMYXIN/BACITRACIN OINTMENT 15 GM TUBE 1 APPLIC TOPICAL (22:12)
[2020-01-24] VITALS (16 sets, daily range): BP systolic 143–168; BP diastolic 48–65; PULSE 58–77; RESP 14–20; TEMP 36.4–37.2; O2SAT 91–100
[2020-01-24 04:47] LABS: Basophils Absolute Auto 0.1 K/mm3 (0.0-0.1); Basophils Percent Auto 0.8 % (0.2-1.2); Eosinophils Absolute Auto 0.3 K/mm3 (0-0.3); Eosinophils Percent Auto 2.7 % (0-4.4); Hemoglobin 10.6 g/dL (14.0-18.0); Immature Granulocyte Percent A 0.9 % (0-0.5); Lymphocytes Absolute Auto 2.75 K/mm3 (0.9-3.2); Lymphocytes Percent Auto 25.8 % (18.3-44.2); Mean Corpuscular HGB Conc 34.2 g/dl (32-36); Mean Corpuscular Hemoglobin 34.6 pg (26-34); Mean Corpuscular Volume 101.3 fl (80-100); Monocytes Absolute Auto 1.9 K/mm3 (0.1-0.6); Monocytes Percent Auto 17.6 % (2.6-8.5); Neutrophils Absolute Auto 5.6 K/mm3 (1.3-6.7); Neutrophils Percent Auto 52.2 % (45.5-73.1); Platelet Count Result 345 k/mm3 (150-375); Red Blood Count 3.06 M/mm3 (4.6-6.20); White Blood Count 10.7 K/mm3 (4.5-10.0)
[2020-01-24 04:56] LABS: INR 1.4; Prothrombin Time 16.3 Seconds (11.1-14.7)
[2020-01-24 05:02] LABS: Anion Gap 10 mmol/L (8-16); Blood Urea Nitrogen 24 mg/dL (9-20); Calcium 8.5 mg/dL (8.4-10.2); Carbon Dioxide 29 mmol/L (22-30); Chloride 89 mmol/L (98-107); Estimated CRCL calculation 17 ml/min; Estimated Glomerular Filt Rate 10; Glucose 136 mg/dL (75-110); Magnesium 1.8 mg/dL (1.6-2.3); Phosphorus 5.3 mg/dL (2.5-4.5); Potassium 4.1 mmol/L (3.4-5.0); Sodium 128 mmol/L (137-145)
[2020-01-24 08:14] LABS: Glucose Point of Care 127 (65-105)
[2020-01-24] MEDS: GABAPENTIN 100 MG CAPSULE 200 MG PO ×3 (09:36→17:43)
[2020-01-24] MEDS: AMIODARONE HCL 200 MG TABLET PO (09:37)
[2020-01-24] MEDS: METOPROLOL SUCCINATE EXT REL 50 MG TABCR PO (09:38)
[2020-01-24] MEDS: MAGNESIUM OXIDE 200 MG TABLET PO ×2 (09:46→20:23)
--- NOTE | 2020-01-24 09:58 | P.PNNP_ITS ---
Progress Note: A&P Assessment and Plan (1) End stage renal disease: Code(s): N18.6 - End stage renal disease Status: Chronic Assessment and Plan: * HD yesterday and continue M/W/ schedule * follow electrolytes, volume status, and clearance (2) Bacteremia due to coagulase-negative Staphylococcus: Code(s): R78.81 - Bacteremia; B95.7 - Other staphylococcus as the cause of diseases classified elsewhere Status: Acute Assessment and Plan: * admission cultures noted * on IV vancomycin * repeat blood culture negative * source?? (3) Respiratory failure: Code(s): J96.90 - Respiratory failure, unspecified, unspecified whether with hypoxia or hypercapnia Status: Acute Assessment and Plan: * clinically better * suspect due to a combination of #3, pneumonia(?), and pulmonary emboli * follow respiratory status (4) Diastolic CHF: Qualifiers: Heart failure chronicity: chronic Qualified Code(s): I50.32 - Chronic diastolic (congestive) heart failure Code(s): I50.30 - Unspecified diastolic (congestive) heart failure Status: Chronic Assessment and Plan: * some exacerbation noted by admission findings * fluid status better s/p aggressive ultrafiltration with HD * continue current therapy (5) Essential hypertension: Code(s): I10 - Essential (primary) hypertension Status: Chronic Assessment and Plan: * reasonable control * follow trend of hemodynamics with current medications (6) Chronic anemia: Code(s): D64.9 - Anemia, unspecified Status: Chronic Assessment and Plan: * at goal for ESRD * follow H/H * Epogen with HD (7) Pulmonary embolism: Qualifiers: Acute cor pulmonale presence: without acute cor pulmonale Chronicity: acute Pulmonary embolism type: unspecified Qualified Code(s): I26.99 - Other pulmonary embolism without acute cor pulmonale Code(s): I26.99 - Other pulmonary embolism without acute cor pulmonale Status: Acute Assessment and Plan: * as noted by CT of chest * on IV heparin and coumadin * follow INR Will continue to follow. Subjective Date/time seen: 01/24/20 09:58 Tolerated dialysis yesterday without any issues or problems; appears to be doing reasonably well; breathing/respiratory status stable if not improving; no events overnight or earlier this AM. Exam Narrative: Exam Narrative: General: WD/WN male in NAD Heart: normal S1 and S2; no rub Lungs: clear anteriorly; decreased at bases with some scant wheezing noted Abdomen: soft, nontender, nondistended, positive bowel sounds Extremities: no cyanosis or clubbing; no edema Skin: warm and intact Objective Data Vital Signs Vital Signs: Vital Signs Temp Pulse Resp BP Pulse Ox 01/24/20 09:54 37.1 C 59 L 18 143/48 H 98 01/24/20 09:38 64 01/24/20 09:37 64 01/24/20 05:54 36.4 C 67 16 145/65 H 97 01/24/20 04:00 62 01/24/20 03:00 64 14 96 01/24/20 01:03 36.8 C 74 16 157/64 H 98 01/24/20 00:00 60 01/23/20 23:06 69 96 01/23/20 23:05 69 17 97 01/23/20 21:17 37.1 C 69 16 153/58 H 97 01/23/20 20:00 66 01/23/20 16:12 36.7 C 72 20 142/54 H 95 01/23/20 16:00 70 01/23/20 13:17 66 01/23/20 13:16 66
--- NOTE | 2020-01-24 09:58 | PM.PNNEP ---
Progress Note: A&P Assessment and Plan (1) End stage renal disease: Code(s): N18.6 - End stage renal disease Status: Chronic Assessment and Plan: HD yesterday and continue M/W/F schedule follow electrolytes, volume status, and clearance (2) Bacteremia due to coagulase-negative Staphylococcus: Code(s): R78.81 - Bacteremia; B95.7 - Other staphylococcus as the cause of diseases classified elsewhere Status: Acute Assessment and Plan: admission cultures noted on IV vancomycin repeat blood culture negative source?? (3) Respiratory failure: Code(s): J96.90 - Respiratory failure, unspecified, unspecified whether with hypoxia or hypercapnia Status: Acute Assessment and Plan: clinically better suspect due to a combination of #3, pneumonia(?), and pulmonary emboli follow respiratory status (4) Diastolic CHF: Qualifiers: Heart failure chronicity: chronic Qualified Code(s): I50.32 - Chronic diastolic (congestive) heart failure Code(s): I50.30 - Unspecified diastolic (congestive) heart failure Status: Chronic Assessment and Plan: some exacerbation noted by admission findings fluid status better s/p aggressive ultrafiltration with HD continue current therapy (5) Essential hypertension: Code(s): I10 - Essential (primary) hypertension Status: Chronic Assessment and Plan: reasonable control follow trend of hemodynamics with current medications (6) Chronic anemia: Code(s): D64.9 - Anemia, unspecified Status: Chronic Assessment and Plan: at goal for ESRD follow H/H Epogen with HD (7) Pulmonary embolism: Qualifiers: Acute cor pulmonale presence: without acute cor pulmonale Chronicity: acute Pulmonary embolism type: unspecified Qualified Code(s): I26.99 - Other pulmonary embolism without acute cor pulmonale Code(s): I26.99 - Other pulmonary embolism without acute cor pulmonale Status: Acute Assessment and Plan: as noted by CT of chest on IV heparin and coumadin follow INR Will continue to follow. Subjective Date/time seen: 01/24/20 09:58 Tolerated dialysis yesterday without any issues or problems; appears to be doing reasonably well; breathing/respiratory status stable if not improving; no events overnight or earlier this AM. Exam Narrative: Exam Narrative: General: WD/WN male in NAD Heart: normal S1 and S2; no rub Lungs: clear anteriorly; decreased at bases with some scant wheezing noted Abdomen: soft, nontender, nondistended, positive bowel sounds Extremities: no cyanosis or clubbing; no edema Skin: warm and intact Objective Data Vital Signs Vital Signs: Vital Signs Temp Pulse Resp BP Pulse Ox 01/24/20 09:54 37.1 C 59 L 18 143/48 H 98 01/24/20 09:38 64 01/24/20 09:37 64 01/24/20 05:54 36.4 C 67 16 145/65 H 97 01/24/20 04:00 62 01/24/20 03:00 64 14 96 01/24/20 01:03 36.8 C 74 16 157/64 H 98 01/24/20 00:00 60 01/23/20 23:06 69 96 01/23/20 23:05 69 17 97 01/23/20 21:17 37.1 C 69 16 153/58 H 97 01/23/20 20:00 66 01/23/20 16:12 36.7 C 72 20 142/54 H 95 01/23/20 16:00 70 01/23/20 13:17 66 01/23/20 13:16 66 01/23/20 12:35 36.7 C 64 20 144/65 H 01/23/20 12:24 64 171/72 H 01/23/20 12:15 64 159/80 H 01/23/20 12:00 66 158/69 H 01/23/20 11:45 64 147/68 H 01/23/20 11:30 61 150/67 H 01/23/20 11:15 59 L 147/68 H 01/23/20 11:00 58 L 149/64 H 01/23/20 10:45 56 L 137/63 01/23/20 10:30 58 L 134/56 L 01/23/20 10:15 58 L 141/66 H 01/23/20 10:00 57 L 142/68 H Intake/Output Intake/Output: Intake & Output 01/21/20 01/22/20 01/23/20 01/24/20 23:59 23:59 23:59 23:59 Intake Total 192.4 2187.6 1840 546 Output Total 4150 425 3000 750 Balance -3957.6 1762.6 -1160 -204
[2020-01-24 11:26] LABS: Partial Thromboplastin Time 140.1 SECONDS (22.3-36.8)
--- NOTE | 2020-01-24 11:39 | PM.IMPN ---
Progress Note: A&P Assessment and Plan (1) Pneumonia: Qualifiers: Laterality: bilateral Lung location: upper lobe of lung Pneumonia type: due to unspecified organism Qualified Code(s): J18.9 - Pneumonia, unspecified organism Code(s): J18.9 - Pneumonia, unspecified organism Status: Acute Assessment and Plan: Continue IV vancomycin and doxycycline for suspected pneumonia and positive blood cultures. Sputum culture pending without any pathogens identified. Pneumococcal and legionella antigens are pending. Continue supportive care with nebulized bronchodilator therapy and supplemental O2 as needed. Add pulmozyme and incentive spirometer. (2) Pulmonary embolism: Qualifiers: Acute cor pulmonale presence: without acute cor pulmonale Chronicity: acute Pulmonary embolism type: unspecified Qualified Code(s): I26.99 - Other pulmonary embolism without acute cor pulmonale Code(s): I26.99 - Other pulmonary embolism without acute cor pulmonale Status: Acute Assessment and Plan: CTA chest shows right lower lobe and right upper lobe pulmonary emboli with low clot burden. INR subtherapeutic on long-term warfarin had been on hold secondary to a dental surgery. Continue his home warfarin and continue IV heparin until INR is therapeutic, 2.0-3.0. (3) Positive blood culture: Code(s): R78.81 - Bacteremia Status: Acute Assessment and Plan: Blood cultures from 01/20 grew coagulase negative Staph. Rocephin was stopped 01/21 and vancomycin was started, repeat blood cultures 01/21 are pending with no growth to date. Continue with IV vancomycin for now and appreciate further input from Dr Edward. Etiology unclear - contaminant vs. bacteremia. He did undergo stent placement to right arm for DVT 3 mo ago, per patient. H/o CABG and coronary stenting. Skin wounds to left hand sustained from recent fall. (4) Subtherapeutic international normalized ratio (INR): Code(s): R79.1 - Abnormal coagulation profile Status: Acute Assessment and Plan: INR 1.4 today. On long-term anticoagulation with warfarin for paroxysmal atrial fibrillation. Patient reports he had been off warfarin for about 4 weeks secondary to a dental surgery. Continue his warfarin 9 mg daily and continue IV heparin until INR is 2.0-3.0. Monitor INR daily. (5) Paroxysmal atrial fibrillation: Code(s): I48.0 - Paroxysmal atrial fibrillation Status: Acute Assessment and Plan: Rate controlled on home amiodarone, metoprolol. Continue warfarin. (6) Obstructive sleep apnea on CPAP: Code(s): G47.33 - Obstructive sleep apnea (adult) (pediatric); Z99.89 - Dependence on other enabling machines and devices Status: Acute Assessment and Plan: CPAP. (7) Essential hypertension: Code(s): I10 - Essential (primary) hypertension Status: Chronic Assessment and Plan: Stable. Last 143/48. Continue home losartan, metoprolol. Monitor BP and adjust treatment as needed. (8) End-stage renal disease on hemodialysis: Code(s): N18.6 - End stage renal disease; Z99.2 - Dependence on renal dialysis Status: Chronic Assessment and Plan: End-stage renal disease on hemodialysis. His act english tutor is Dr. Cardenas and he gets hemodialysis on MWF at [facility]. Appreciate nephrology recommendations while he is here. (9) Elevated troponin: Code(s): R79.89 - Other specified abnormal findings of blood chemistry Status: Acute Assessment and Plan: Troponins mildly elevated. Stable, no chest
[2020-01-24 12:03] LABS: Glucose Point of Care 171 (65-105)
[2020-01-24] MEDS: HEPARIN SOD/D5W 100 UNITS/ML 25,000 UNITS/250 ML BAG 15 UNITS IV CONT (15:10)
--- NOTE | 2020-01-24 15:49 | PCRCNOTE ---
Window of time for administration has passed. See next scheduled administration.
[2020-01-24 16:31] LABS: Glucose Point of Care 106 (65-105)
--- NOTE | 2020-01-24 17:07 | WPDINFPN2 ---
Progress Note: A&P Assessment and Plan (1) Bacteremia due to coagulase-negative Staphylococcus: Code(s): R78.81 - Bacteremia; B95.7 - Other staphylococcus as the cause of diseases classified elsewhere Status: Acute Assessment and Plan: CNSS bacteremia with infection REC Vanc # 3/7. Subjective Date/time seen: 01/24/20 17:07 Objective Data Vital Signs Vital Signs: Vital Signs - 24 hr 01/23/20 20:00 01/23/20 21:17 01/23/20 23:05 Temperature 37.1 C Pulse Rate 66 69 69 Respiratory Rate 16 17 Blood Pressure 153/58 H Pulse Oximetry 97 97 01/23/20 23:06 01/24/20 00:00 01/24/20 01:03 Temperature 36.8 C Pulse Rate 69 60 74 Respiratory Rate 16 Blood Pressure 157/64 H Pulse Oximetry 96 98 01/24/20 03:00 01/24/20 04:00 01/24/20 05:54 Temperature 36.4 C Pulse Rate 64 62 67 Respiratory Rate 14 16 Blood Pressure 145/65 H Pulse Oximetry 96 97 01/24/20 08:00 01/24/20 09:37 01/24/20 09:38 Temperature Pulse Rate 58 L 64 64 Respiratory Rate Blood Pressure Pulse Oximetry 01/24/20 09:54 01/24/20 09:58 01/24/20 14:00 Temperature 37.1 C 36.9 C Pulse Rate 59 L 58 L Respiratory Rate 18 18 Blood Pressure 143/48 H 160/61 H Pulse Oximetry 98 96 96 Intake/Output Intake/Output: Intake & Output 01/21/20 01/22/20 01/23/20 01/24/20 23:59 23:59 23:59 23:59 Intake Total 192.4 2187.6 1840 1250 Output Total 4150 425 3000 750 Balance -3957.6 1762.6 -1160 500 Meds/Results Medications: Active Medications Generic Name Dose Route Start Last Admin Trade Name Freq PRN Reason Stop Dose Admin Amiodarone HCl 200 mg 01/22/20 09:00 01/24/20 09:37 Pacerone PO 200 mg DAILY LUDWIG Administration Dextrose 12.5 gm 01/21/20 22:20 Dextrose 50% Syringe IV PUSH PRN PRN Hypoglycemia Protocol Dornase Pablo 2.5 mg 01/24/20 14:00 01/24/20 14:42 Pulmozyme INHALATION Not Given Q12HRT LUDWIG Fluticasone Propionate 2 spray 01/21/20 21:00 01/23/20 20:16 Flonase 0.05% Nasal [place] NASAL 2 spray HS LUDWIG Administration Gabapentin 200 mg 01/21/20 22:35 01/24/20 12:27 Neurontin PO 200 mg TID ULDWIG Administration Glucagon 1 mg 01/21/20 22:20 Glucagon For Inj IM PRN PRN Hypoglycemia Protocol Glucose 15 gm 01/21/20 22:20 Glutose 15 PO PRN PRN Hypoglycemia Protocol Heparin Sodium (Porcine) 4,000 units 01/21/20 11:33 01/23/20 04:50 Heparin Sodium IV PUSH 4,000 units PRN PRN Administration aPTT less than 55 seconds Heparin Sodium (Porcine) 4,000 units 01/21/20 11:33 01/23/20 15:38 Heparin Sodium IV PUSH 4,000 units PRN PRN Administration aPTT 55 - 70 seconds Albumin Human 50 mls @ 999 mls/hr 01/21/20 10:41 Albutein IVPB 02/20/20 10:42 Q10M PRN HYPOTENSION Heparin Sodium/Dextrose 25,000 units in 250 mls @ 15 mls/hr 01/21/20 12:30 01/24/20 15:10 Heparin Sodium/D5w 100 Units/Ml IV CONT 1,500 units/hr .[id number] LUDWIG 15 mls/hr Administration Protocol 1,500 UNITS/HR Dextrose 1,000 mls @ 100 mls/hr 01/21/20 22:20 Dextrose 5% 1,000 Ml IVPB PRN PRN Hypoglycemia Protocol Doxycycline Hyclate 100 mg/ 100 mls @ 100 mls/hr 01/21/20 22:30 01/24/20 12:30 Dextrose IVPB Infused Q12HR LUDWIG Infusion Vancomycin HCl 1,750 mg in 500 mls @ 333.333 mls/hr 01/24/20 07:42 Vancomycin 1,750 Mg/D5w 500 Ml IVPB PRN PRN PER PROTOCOL Insulin Aspart 2 - 5 units 01/22/20 08:00 01/24/20 16:43 Novolog SUB-Q Not Given TIDWM [facility] Protocol Levalbuterol HCl 2 puff 01/21/20 21:00 01/23/20 21:00 Xopenex Hfa INHALATION 2 puff HS LUDWIG Administration Levalbuterol HCl 2 puff 01/21/20 22:53 Xopenex Hfa INHALATION Q6HRT PRN Shortness Of Breath Levalbuterol HCl 1.25 mg 01/24/20 14:00 01/24/20 15:47 Xopenex 1.25 Mg/0.5 Ml INHALATION Not Given Q6HRT LUDWIG [place]
[2020-01-24 18:35] LABS: Partial Thromboplastin Time 67.7 SECONDS (22.3-36.8)
[2020-01-24] MEDS: HEPARIN SODIUM 5,000 UNITS/ML VIAL 4000 UNITS IV PUSH (18:42)
[2020-01-24] MEDS: DORNASE ALFA INH SOLN 1 MG/ML 2.5 ML AMP 2.5 MG INHALATION (19:51)
[2020-01-24] MEDS: LOSARTAN POTASSIUM 25 MG TABLET PO (20:23)
[2020-01-24] MEDS: WARFARIN (*PBKC) 3 MG TABLET 9 MG PO (20:23)
[2020-01-24] MEDS: FLUTICASONE PROPIONATE 0.05% NA SPR 16 GM BTL (*BKC) 2 SPRAY NASAL (20:23)
[2020-01-24 21:54] LABS: Glucose Point of Care 210 (65-105)
[2020-01-25] VITALS (19 sets, daily range): BP systolic 151–161; BP diastolic 55–88; PULSE 58–71; RESP 14–18; TEMP 36.7–37.4; O2SAT 94–100
[2020-01-25 01:13] LABS: Partial Thromboplastin Time > 200.0 SECONDS (22.3-36.8)
[2020-01-25] MEDS: HEPARIN SOD/D5W 100 UNITS/ML 25,000 UNITS/250 ML BAG 14 UNITS IV CONT ×2 (02:23→21:58)
[2020-01-25 06:00] LABS: Basophils Absolute Auto 0.1 K/mm3 (0.0-0.1); Basophils Percent Auto 0.9 % (0.2-1.2); Eosinophils Absolute Auto 0.4 K/mm3 (0-0.3); Eosinophils Percent Auto 4.3 % (0-4.4); Hematocrit 27.9 % (42.0-52.0); Hemoglobin 9.6 g/dL (14.0-18.0); Immature Granulocyte Absolute 0.07 K/mm3 (0.00-0.031); Immature Granulocyte Percent A 0.8 % (0-0.5); Lymphocytes Absolute Auto 2.17 K/mm3 (0.9-3.2); Lymphocytes Percent Auto 24.6 % (18.3-44.2); Mean Corpuscular HGB Conc 34.4 g/dl (32-36); Mean Corpuscular Hemoglobin 34.3 pg (26-34); Mean Corpuscular Volume 99.6 fl (80-100); Mean Platelet Volume 9.3 fl (7.4-10.4); Monocytes Absolute Auto 1.6 K/mm3 (0.1-0.6); Monocytes Percent Auto 18.4 % (2.6-8.5); Neutrophils Absolute Auto 4.5 K/mm3 (1.3-6.7); Platelet Count Result 300 k/mm3 (150-375); Red Cell Distribution Width 14.6 % (11.5-14.5); White Blood Count 8.8 K/mm3 (4.5-10.0)
[2020-01-25 06:14] LABS: Alanine Aminotransferase 9 U/L (4-50); Albumin Level 3.2 g/dL (3.5-5.1); Alkaline Phosphatase 63 U/L (38-126); Anion Gap 11 mmol/L (8-16); Aspartate Amino Transferase 10 U/L (17-59); Bilirubin,Total 0.3 mg/dL (0.2-1.3); Blood Urea Nitrogen 32 mg/dL (9-20); Carbon Dioxide 27 mmol/L (22-30); Chloride 86 mmol/L (98-107); Estimated CRCL calculation 12 ml/min; Estimated Glomerular Filt Rate 8; Glucose 126 mg/dL (75-110); INR 1.6; Magnesium 1.7 mg/dL (1.6-2.3); Potassium 3.9 mmol/L (3.4-5.0); Prothrombin Time 18.2 Seconds (11.1-14.7); Sodium 124 mmol/L (137-145)
[2020-01-25 06:44] LABS: Vancomycin Trough 17.1 ug/mL (10.0-20.0)
[2020-01-25 08:05] LABS: Glucose Point of Care 124 (65-105)
[2020-01-25] MEDS: DORNASE ALFA INH SOLN 1 MG/ML 2.5 ML AMP 2.5 MG INHALATION ×2 (08:45→19:50)
[2020-01-25 08:48] LABS: Partial Thromboplastin Time 61.5 SECONDS (22.3-36.8)
[2020-01-25] MEDS: MAGNESIUM OXIDE 200 MG TABLET PO ×2 (08:53→20:29)
[2020-01-25] MEDS: GABAPENTIN 100 MG CAPSULE 200 MG PO ×3 (08:53→17:21)
[2020-01-25] MEDS: AMIODARONE HCL 200 MG TABLET PO (08:54)
[2020-01-25] MEDS: METOPROLOL SUCCINATE EXT REL 50 MG TABCR PO (08:55)
[2020-01-25] MEDS: HEPARIN SODIUM 5,000 UNITS/ML VIAL 4000 UNITS IV PUSH (08:59)
[2020-01-25 12:01] LABS: Glucose Point of Care 223 (65-105)
[2020-01-25] MEDS: INSULIN ASPART (*BKC) 100 UNITS/ML SUB-Q (12:11)
--- NOTE | 2020-01-25 12:29 | PM.IMPN ---
Progress Note: A&P Assessment and Plan (1) Pneumonia: Qualifiers: Pneumonia type: due to unspecified organism Laterality: bilateral Lung location: upper lobe of lung Qualified Code(s): J18.9 - Pneumonia, unspecified organism Code(s): J18.9 - Pneumonia, unspecified organism Status: Acute Assessment and Plan: Continue IV vancomycin and doxycycline for suspected pneumonia and positive blood cultures. Sputum culture without any pathogens identified. Pneumococcal and legionella antigens are pending. Continue supportive care with nebulized bronchodilator therapy and supplemental O2 as needed. Continue pulmozyme and incentive spirometer. (2) Pulmonary embolism: Qualifiers: Acute cor pulmonale presence: without acute cor pulmonale Chronicity: acute Pulmonary embolism type: unspecified Qualified Code(s): I26.99 - Other pulmonary embolism without acute cor pulmonale Code(s): I26.99 - Other pulmonary embolism without acute cor pulmonale Status: Acute Assessment and Plan: CTA chest shows right lower lobe and right upper lobe pulmonary emboli with low clot burden. INR subtherapeutic on long-term warfarin had been on hold secondary to a dental surgery. Continue his home warfarin and continue IV heparin until INR is therapeutic, 2.0-3.0. (3) Bacteremia due to coagulase-negative Staphylococcus: Code(s): R78.81 - Bacteremia; B95.7 - Other staphylococcus as the cause of diseases classified elsewhere Status: Acute Assessment and Plan: Blood cultures from 01/20 grew coagulase negative Staph. Repeat blood cultures 01/21 are pending with no growth to date. Continue IV Vancomycin #[address] Edward's recommendations which are appreciated. Etiology unclear. He did undergo stent placement to right arm for DVT 3 mo ago, per patient. H/o CABG and coronary stenting. Skin wounds to left hand sustained from recent fall. (4) Subtherapeutic international normalized ratio (INR): Code(s): R79.1 - Abnormal coagulation profile Status: Acute Assessment and Plan: INR 1.6 today. On long-term anticoagulation with warfarin for paroxysmal atrial fibrillation. He was off warfarin for about 4 weeks secondary to a dental surgery. Continue his warfarin 9 mg daily and continue IV heparin until INR is 2.0-3.0. Monitor INR daily. (5) Paroxysmal atrial fibrillation: Code(s): I48.0 - Paroxysmal atrial fibrillation Status: Acute Assessment and Plan: Rate controlled on home amiodarone, metoprolol. Continue warfarin. (6) Obstructive sleep apnea on CPAP: Code(s): G47.33 - Obstructive sleep apnea (adult) (pediatric); Z99.89 - Dependence on other enabling machines and devices Status: Acute Assessment and Plan: CPAP. (7) Essential hypertension: Code(s): I10 - Essential (primary) hypertension Status: Chronic Assessment and Plan: BPs elevated. Continue home losartan, metoprolol. Increase his losartan this evening. Monitor BP and adjust treatment as needed. (8) End-stage renal disease on hemodialysis: Code(s): N18.6 - End stage renal disease; Z99.2 - Dependence on renal dialysis Status: Chronic Assessment and Plan: End-stage renal disease on hemodialysis. His probe operator is Dr. Cardenas and he gets hemodialysis on MWF at [facility]. Appreciate nephrology recommendations while he is here. (9) History of diabetes mellitus: Code(s): Z86.39 - Personal history of other endocrine, nutritional and metabolic disease Status: Chronic Assessm
--- NOTE | 2020-01-25 13:19 | P.PNNP_ITS ---
Progress Note: A&P Assessment and Plan (1) End stage renal disease: Code(s): N18.6 - End stage renal disease Status: Chronic Assessment and Plan: * HD tomorrowand continue M/W/F schedule * follow electrolytes, volume status, and clearance (2) Bacteremia due to coagulase-negative Staphylococcus: Code(s): R78.81 - Bacteremia; B95.7 - Other staphylococcus as the cause of diseases classified elsewhere Status: Acute Assessment and Plan: * admission cultures noted * on IV vancomycin * repeat blood culture negative * source?? * vancomycin can be dosed with dialysis on discharge if needed (3) Respiratory failure: Code(s): J96.90 - Respiratory failure, unspecified, unspecified whether with hypoxia or hypercapnia Status: Acute Assessment and Plan: * clinically better * suspect due to a combination of #3, pneumonia(?), and pulmonary emboli * continue current measures (supplemental oxygen, antibiotics, nebs...etc) * follow respiratory status (4) Diastolic CHF: Qualifiers: Heart failure chronicity: chronic Qualified Code(s): I50.32 - Chronic diastolic (congestive) heart failure Code(s): I50.30 - Unspecified diastolic (congestive) heart failure Status: Chronic Assessment and Plan: * some exacerbation noted by admission findings * fluid status better s/p aggressive ultrafiltration with HD * continue current therapy (5) Essential hypertension: Code(s): I10 - Essential (primary) hypertension Status: Chronic Assessment and Plan: * reasonable control but fluctuates * follow trend of hemodynamics with current medications * would not be opposed to titration of losartan or metoprolol if needed (6) Chronic anemia: Code(s): D64.9 - Anemia, unspecified Status: Chronic Assessment and Plan: * due to ESRD * follow H/H * Epogen with HD (7) Pulmonary embolism: Qualifiers: Acute cor pulmonale presence: without acute cor pulmonale Chronicity: acute Pulmonary embolism type: unspecified Qualified Code(s): I26.99 - Other pulmonary embolism without acute cor pulmonale Code(s): I26.99 - Other pulmonary embolism without acute cor pulmonale Status: Acute Assessment and Plan: * as noted by CT of chest * on IV heparin and coumadin * follow INR Will continue to follow. Subjective Date/time seen: 01/25/20 13:19 No new issues or problems to report at this time; breathing and respiratory status continues to improve each day with ongoing therapy; no apparent distress noted; no events overight or earlier this AM. Exam Narrative: Exam Narrative: General: WD/WN male in NAD Heart: normal S1 and S2; no rub Lungs: clear anteriorly; decreased at the bases Abdomen: soft, nontender, nondistended, positive bowel sounds Extremities: no cyanosis or clubbing; no edema Skin: warm and intact Objective Data Vital Signs Vital Signs: Vital Signs Temp Pulse Resp BP Pulse Ox 01/25/20 10:04 37.3 C 63 16 161/58 H 96 01/25/20 09:00 59 L 16 01/25/20 08:55 58 L 01/25/20 08:54 58 L 01/25/20 08:47 61 16 96 01/25/20 06:34 36.8 C 59 L 18 156/61 H 97 01/25/20 02:05 62 16 01/25/20 02:04 37.1 C 65 16 153/65 H 98 01/25/20 01:57 61 16 01/25/20 00:31 37.0 C 63 16 157/61 H 97
--- NOTE | 2020-01-25 13:19 | PM.PNNEP ---
Progress Note: A&P Assessment and Plan (1) End stage renal disease: Code(s): N18.6 - End stage renal disease Status: Chronic Assessment and Plan: HD tomorrowand continue M/W/F schedule follow electrolytes, volume status, and clearance (2) Bacteremia due to coagulase-negative Staphylococcus: Code(s): R78.81 - Bacteremia; B95.7 - Other staphylococcus as the cause of diseases classified elsewhere Status: Acute Assessment and Plan: admission cultures noted on IV vancomycin repeat blood culture negative source?? vancomycin can be dosed with dialysis on discharge if needed (3) Respiratory failure: Code(s): J96.90 - Respiratory failure, unspecified, unspecified whether with hypoxia or hypercapnia Status: Acute Assessment and Plan: clinically better suspect due to a combination of #3, pneumonia(?), and pulmonary emboli continue current measures (supplemental oxygen, antibiotics, nebs...etc) follow respiratory status (4) Diastolic CHF: Qualifiers: Heart failure chronicity: chronic Qualified Code(s): I50.32 - Chronic diastolic (congestive) heart failure Code(s): I50.30 - Unspecified diastolic (congestive) heart failure Status: Chronic Assessment and Plan: some exacerbation noted by admission findings fluid status better s/p aggressive ultrafiltration with HD continue current therapy (5) Essential hypertension: Code(s): I10 - Essential (primary) hypertension Status: Chronic Assessment and Plan: reasonable control but fluctuates follow trend of hemodynamics with current medications would not be opposed to titration of losartan or metoprolol if needed (6) Chronic anemia: Code(s): D64.9 - Anemia, unspecified Status: Chronic Assessment and Plan: due to ESRD follow H/H Epogen with HD (7) Pulmonary embolism: Qualifiers: Acute cor pulmonale presence: without acute cor pulmonale Chronicity: acute Pulmonary embolism type: unspecified Qualified Code(s): I26.99 - Other pulmonary embolism without acute cor pulmonale Code(s): I26.99 - Other pulmonary embolism without acute cor pulmonale Status: Acute Assessment and Plan: as noted by CT of chest on IV heparin and coumadin follow INR Will continue to follow. Subjective Date/time seen: 01/25/20 13:19 No new issues or problems to report at this time; breathing and respiratory status continues to improve each day with ongoing therapy; no apparent distress noted; no events overight or earlier this AM. Exam Narrative: Exam Narrative: General: WD/WN male in NAD Heart: normal S1 and S2; no rub Lungs: clear anteriorly; decreased at the bases Abdomen: soft, nontender, nondistended, positive bowel sounds Extremities: no cyanosis or clubbing; no edema Skin: warm and intact Objective Data Vital Signs Vital Signs: Vital Signs Temp Pulse Resp BP Pulse Ox 01/25/20 10:04 37.3 C 63 16 161/58 H 96 01/25/20 09:00 59 L 16 01/25/20 08:55 58 L 01/25/20 08:54 58 L 01/25/20 08:47 61 16 96 01/25/20 06:34 36.8 C 59 L 18 156/61 H 97 01/25/20 02:05 62 16 01/25/20 02:04 37.1 C 65 16 153/65 H 98 01/25/20 01:57 61 16 01/25/20 00:31 37.0 C 63 16 157/61 H 97 01/24/20 22:21 37.2 C 60 18 168/63 H 98 01/24/20 22:05 64 18 97 01/24/20 20:01 77 20 01/24/20 19:50 74 16 91 01/24/20 18:00 36.8 C 63 18 150/51 H 100 01/24/20 14:00 36.9 C 58 L 18 160/61 H 96 Intake/Output Intake/Output: Intake & Output 01/22/20 01/23/20 01/24/20 01/25/20 23:59 23:59 23:59 23:59 Intake Total 2187.6 1840 2316 836 Output Total 425 3000 950 250 Balance 1762.6 -1160 1366 586 Meds/Results Medications: Active Medications Generic Name Dose Route Start Last Admin Trade Name Freq PRN Reason Stop Dose Admin Amiodarone HCl 200 m
[2020-01-25 15:36] LABS: Partial Thromboplastin Time 118.2 SECONDS (22.3-36.8)
[2020-01-25 15:42] LABS: Pneumococcal Antigen Urine Not Detected (Not Detected)
[2020-01-25 17:00] LABS: Glucose Point of Care 147 (65-105)
[2020-01-25] MEDS: ONDANSETRON INJ 4 MG/2 ML VIAL IV PUSH (19:06)
[2020-01-25] MEDS: WARFARIN (*PBKC) 3 MG TABLET 9 MG PO (20:28)
[2020-01-25] MEDS: LOSARTAN POTASSIUM 50 MG TABLET PO (20:29)
[2020-01-25] MEDS: FLUTICASONE PROPIONATE 0.05% NA SPR 16 GM BTL (*BKC) 2 SPRAY NASAL (20:29)
[2020-01-25 21:52] LABS: Glucose Point of Care 173 (65-105)
[2020-01-25 22:07] LABS: Partial Thromboplastin Time 55.8 SECONDS (22.3-36.8)
[2020-01-26] VITALS (29 sets, daily range): BP systolic 102–165; BP diastolic 45–83; PULSE 56–79; RESP 16–20; TEMP 36.3–37.2; O2SAT 94–99
[2020-01-26] MEDS: HEPARIN SODIUM 5,000 UNITS/ML VIAL 4000 UNITS IV PUSH (01:46)
[2020-01-26] MEDS: HEPARIN SOD/D5W 100 UNITS/ML 25,000 UNITS/250 ML BAG 16 UNITS IV CONT (01:47)
--- NOTE | 2020-01-26 06:13 | CONS_ITS ---
DATE OF CONSULTATION: 01/24/2020 REASON FOR CONSULTATION: Bacteremia. HISTORY OF PRESENT ILLNESS: A 69-year-old male with chronic renal failure. He had a percutaneous dialysis catheter placed by Dr. Mello, in last October, but in the last 6 months instead had a fistula in the right upper extremity, which has been functioning well. He typically applied Neosporin to the puncture site after returning home from each dialysis session every Sunday, Sunday, Sunday. He has had no malfunction of the fistula in recent weeks he does have. He has had no fever, chills, or sweats. Several days before admission, he fell while taking trash down the driveway and scraped the posterior right elbow along with multiple fingers on the dorsum of the left hand. He applied first aid. He presented to the hospital the following day of January 19 with dyspnea, both at rest and with exertion. He had no cough or sputum production. He was noted to have mild leukocytosis. Blood cultures were collected, were positive the following day. He is given vancomycin starting the and consultation requested today. He still has some dyspnea on exertion. No chest pain. No sputum production. No previous such episodes. No other prosthetic devices in place. HABITS: Ex-smoker. No alcohol. PRESENT MEDICATIONS: Vancomycin as above. No other antibiotics. ALLERGIES: PENICILLIN, WHICH CAUSED HIVES. PAST MEDICAL HISTORY: In addition to the above, AAA, Proteus bacteremia, C. diff infection, stroke sometime in between his cardiac cath and his CABG, previous heart failure, anticoagulation, depression, hypertension, diabetes, ischemic cardiomyopathy, previous DVT, SHARON, PAF, healthcare-associated pneumonia, appendectomy, CABG, previous PEG and trach. FAMILY HISTORY: Heart disease. SOCIAL HISTORY: He is . Two grown children. 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 REVIEW OF SYSTEMS: Right-sided weakness after his stroke. 14-point review otherwise negative. PHYSICAL EXAMINATION: GENERAL: This is an elderly male who appears actual age. No acute distress at rest. VITAL SIGNS: Afebrile since arrival 160/61, 58, 18, 96% room air. SKIN: His abrasions are over the right olecranon as well as over multiple fingers on the left. There is no cellulitis or abscess elsewhere. No ulcer. Skin is warm and dry. EENT: Conjunctivae are normal. The pupils are equal, round, reactive to light. Oropharynx, oral mucosa normal. NECK: No masses, thyromegaly. No stridor. LUNGS: Coarse breath sounds, vesicular, otherwise clear to auscultation and percussion. CARDIAC: Soft, S1, S2. Bradycardic. No murmurs or gallops. Pulses 1+. ABDOMEN: Obese, nontender, and no masses. EXTREMITIES: He has a complex fistula over the right upper and lower arm with a thrill proximally. Multiple skin puncture sites proximally. There is no surrounding erythema. No hematoma, ecchymosis, erythema, or tenderness. LABORATORY DATA: Blood cultures 2/2 sets coagulase-negative Staph species. Repeat blood cultures done the following day, no growth after 2 days incubation. Sputum culture is in process as well as his white count recently 13.7, now 10.7, hemoglobin 10.6, platelets are 345. His differential is normal. He has a mild hyponatremia, low chloride. BUN 24, creatinine 5.5, glucose 136. Hemoglobin A1c 6.8%. CRP 3.0, LDH 2 of 6. White virus essay was nonreactive. Hepatitis B surface antigen nonreactive. RADIOLOGY: Chest x-ray suspected congestive heart failure. CT of the chest, abdomen, pelvis done for unknown reasons. Small right-sided pulmonary emboli, heart failure, abdominal aneurysm 4.2 cm, diverticulosis, umbilical hernia. ASSESSMENT: 1. Coagulase-negative Staph bacteremia, probably true infection
[2020-01-26 07:42] LABS: Basophils Absolute Auto 0.1 K/mm3 (0.0-0.1); Basophils Percent Auto 0.7 % (0.2-1.2); Eosinophils Absolute Auto 0.4 K/mm3 (0-0.3); Eosinophils Percent Auto 4.3 % (0-4.4); Hematocrit 27.6 % (42.0-52.0); Hemoglobin 9.7 g/dL (14.0-18.0); Immature Granulocyte Absolute 0.11 K/mm3 (0.00-0.031); Immature Granulocyte Percent A 1.1 % (0-0.5); Lymphocytes Absolute Auto 1.94 K/mm3 (0.9-3.2); Lymphocytes Percent Auto 19.2 % (18.3-44.2); Mean Corpuscular HGB Conc 35.1 g/dl (32-36); Mean Corpuscular Hemoglobin 34.9 pg (26-34); Mean Corpuscular Volume 99.3 fl (80-100); Mean Platelet Volume 9.1 fl (7.4-10.4); Monocytes Absolute Auto 1.7 K/mm3 (0.1-0.6); Monocytes Percent Auto 17.2 % (2.6-8.5); Neutrophils Absolute Auto 5.8 K/mm3 (1.3-6.7); Neutrophils Percent Auto 57.5 % (45.5-73.1); Platelet Count Result 280 k/mm3 (150-375); Red Blood Count 2.78 M/mm3 (4.6-6.20); Red Cell Distribution Width 14.6 % (11.5-14.5); White Blood Count 10.1 K/mm3 (4.5-10.0)
[2020-01-26 07:49] LABS: Glucose Point of Care 135 (65-105)
[2020-01-26 07:53] LABS: Anion Gap 14 mmol/L (8-16); Blood Urea Nitrogen 42 mg/dL (9-20); Calcium 7.6 mg/dL (8.4-10.2); Carbon Dioxide 23 mmol/L (22-30); Chloride 85 mmol/L (98-107); Estimated CRCL calculation 10 ml/min; Estimated Glomerular Filt Rate 6; Glucose 122 mg/dL (75-110); Magnesium 1.7 mg/dL (1.6-2.3); Potassium 4.5 mmol/L (3.4-5.0); Sodium 122 mmol/L (137-145)
[2020-01-26 07:54] LABS: INR 2.2; Prothrombin Time 23.9 Seconds (11.1-14.7)
[2020-01-26] MEDS: AMIODARONE HCL 200 MG TABLET PO (08:09)
[2020-01-26] MEDS: MAGNESIUM OXIDE 200 MG TABLET PO ×2 (08:10→20:44)
[2020-01-26] MEDS: METOPROLOL SUCCINATE EXT REL 50 MG TABCR PO (08:10)
[2020-01-26] MEDS: GABAPENTIN 100 MG CAPSULE 200 MG PO ×3 (08:10→19:13)
[2020-01-26 08:16] LABS: Partial Thromboplastin Time > 200.0 SECONDS (22.3-36.8)
[2020-01-26] MEDS: DORNASE ALFA INH SOLN 1 MG/ML 2.5 ML AMP 2.5 MG INHALATION ×2 (10:31→21:00)
--- NOTE | 2020-01-26 10:38 | PM.IMPN ---
Progress Note: A&P Assessment and Plan (1) Pneumonia: Qualifiers: Laterality: bilateral Lung location: upper lobe of lung Pneumonia type: due to unspecified organism Qualified Code(s): J18.9 - Pneumonia, unspecified organism Code(s): J18.9 - Pneumonia, unspecified organism Status: Acute Assessment and Plan: Completed a course of IV doxycycline for suspected pneumonia and on IV vancomycin for Staph bacteremia. Sputum culture without any pathogens identified. Pneumococcal urine antigen negative, legionella antigen pending. Continue supportive care with nebulized bronchodilator therapy and supplemental O2 as needed. Continue pulmozyme and incentive spirometer. (2) Pulmonary embolism: Qualifiers: Acute cor pulmonale presence: without acute cor pulmonale Chronicity: acute Pulmonary embolism type: unspecified Qualified Code(s): I26.99 - Other pulmonary embolism without acute cor pulmonale Code(s): I26.99 - Other pulmonary embolism without acute cor pulmonale Status: Acute Assessment and Plan: CTA chest shows right lower lobe and right upper lobe pulmonary emboli with low clot burden. INR subtherapeutic on long-term warfarin had been on hold secondary to a dental surgery. INR therapeutic today, discontinue heparin drip and continue his warfarin. Monitor INR daily. (3) Bacteremia due to coagulase-negative Staphylococcus: Code(s): R78.81 - Bacteremia; B95.7 - Other staphylococcus as the cause of diseases classified elsewhere Status: Acute Assessment and Plan: Blood cultures from 01/20 grew coagulase negative Staph. Repeat blood cultures 01/21 are pending with no growth to date. Continue IV Vancomycin (day 5 of 7) per Dr Edward's recommendations which are appreciated. Etiology unclear. Right upper extremity fistula. Skin wounds to left hand sustained from recent fall. Recent dental surgery 2 weeks ago. H/o CABG and coronary stenting. (4) Subtherapeutic international normalized ratio (INR): Code(s): R79.1 - Abnormal coagulation profile Status: Acute Assessment and Plan: First day of therapeutic range INR up to 2.2 today. On long-term anticoagulation with warfarin for paroxysmal atrial fibrillation. He was off warfarin for about 4 weeks secondary to a dental surgery. Continue his warfarin 9 mg daily, stop heparin gtt. Monitor INR daily. 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 (5) Paroxysmal atrial fibrillation: Code(s): I48.0 - Paroxysmal atrial fibrillation Status: Acute Assessment and Plan: Rate controlled on home amiodarone, metoprolol. Continue warfarin. (6) Obstructive sleep apnea on CPAP: Code(s): G47.33 - Obstructive sleep apnea (adult) (pediatric); Z99.89 - Dependence on other enabling machines and devices Status: Acute Assessment and Plan: CPAP. (7) Essential hypertension: Code(s): I10 - Essential (primary) hypertension Status: Chronic Assessment and Plan: BPs have been reviewed and are fluctuating. Continue home losartan, metoprolol. Increased his losartan 01/24. Monitor BP and adjust treatment as needed. (8) End-stage renal disease on hemodialysis: Code(s): N18.6 - End stage renal disease; Z99.2 - Dependence on renal dialysis Status: Chronic Assessment and Plan: End-stage renal disease on hemodialysis. His machine hamper maker is Dr. Cardenas and he gets hemodialysis on MWF at [facility]. Appreciate nephrology recommendations while he is here. (9) History of diabetes fabiolait
[2020-01-26 11:23] LABS: Glucose Point of Care 149 (65-105)
--- NOTE | 2020-01-26 13:58 | WPDINFPN2 ---
Progress Note: A&P Assessment and Plan (1) Bacteremia due to coagulase-negative Staphylococcus: Code(s): R78.81 - Bacteremia; B95.7 - Other staphylococcus as the cause of diseases classified elsewhere Status: Acute Assessment and Plan: 1. CNSS bacteremia with infection, skin source, clinically stable 2. CRF, MWF schedule REC Vanc # 5/. PharmD dosing, target trough 10-15. Ok with me for discharge, though I cautioned that HD unit may not financially cover his Vanc dosing. Subjective Date/time seen: 01/26/20 13:58 Interval history: no complaints Exam Narrative: Exam Narrative: aebrile Const: General: no acute distress Eyes: General: appearance normal, both eyes and all related structures Resp: Effort & Inspection: normal respiratory effort Auscultation: clear to auscultation bilaterally Cardio: Rate: regular rate Rhythm: regular rhythm Heart sounds: no gallops and no murmurs GI: Inspection: non-distended GI Palp: Yes Soft to palpation and No Tenderness to palpation present (GI) Skin: General skin exam: normal color and no rashes or lesions noted Other: r arm without cellulitis. L fingers crusted abrasions without complication Objective Data Vital Signs Vital Signs: Vital Signs - 24 hr 01/25/20 14:00 01/25/20 14:03 01/25/20 14:12 Temperature 37.4 C Pulse Rate 60 58 L 59 L Respiratory Rate 18 16 16 Blood Pressure 153/55 H Pulse Oximetry 99 01/25/20 18:00 01/25/20 19:50 01/25/20 20:03 Temperature 36.7 C Pulse Rate 66 63 61 Respiratory Rate 16 18 16 Blood Pressure 157/88 H Pulse Oximetry 100 98 01/25/20 20:48 01/25/20 21:47 01/25/20 23:27 Temperature 37.1 C Pulse Rate 64 68 71 Respiratory Rate 18 16 14 Blood Pressure 151/59 H Pulse Oximetry 94 100 96 01/26/20 01:40 01/26/20 01:41 01/26/20 01:45 Temperature 36.8 C Pulse Rate 58 L 68 58 L Respiratory Rate 20 16 18 Blood Pressure 141/45 H Pulse Oximetry 98 98 01/26/20 01:47 01/26/20 05:34 01/26/20 08:09 Temperature 36.8 C Pulse Rate 60 72 76 Respiratory Rate 20 16 Blood Pressure 156/64 H Pulse Oximetry 99 01/26/20 08:10 01/26/20 10:01 01/26/20 10:23 Temperature 37.1 C Pulse Rate 76 59 L 56 L Respiratory Rate 20 18 Blood Pressure 102/53 L Pulse Oximetry 97 Intake/Output Intake/Output: Intake & Output 01/23/20 01/24/20 01/25/20 01/26/20 23:59 23:59 23:59 23:59 Intake Total 1840 2316 2254 1230 Output Total 3000 950 850 350 Balance -1160 1366 1404 880 Meds/Results Medications: Active Medications Generic Name Dose Route Start Last Admin Trade Name Freq PRN Reason Stop Dose Admin Amiodarone HCl 200 mg 01/22/20 09:00 01/26/20 08:09 Pacerone PO 200 mg DAILY LUDWIG Administration Dextrose 12.5 gm 01/21/20 22:20 Dextrose 50% Syringe IV PUSH PRN PRN Hypoglycemia Protocol Dornase Pablo 2.5 mg 01/24/20 14:00 01/26/20 10:31 Pulmozyme INHALATION 2.5 mg Q12HRT LUDWIG Administration Epoetin Pablo-epbx 10,000 units 01/26/20 18:29 Retacrit IV PUSH 01/26/20 18:30 ONCE ONE Fluticasone Propionate 2 spray 01/21/20 21:00 01/25/20 20:29 Flonase 0.05% Nasal [place] NASAL 2 spray HS LUDWIG Administration Gabapentin 200 mg 01/21/20 22:35 01/26/20 12:47 Neurontin PO 200 mg TID LUDWIG Administration Glucagon 1 mg 01/21/20 22:20 Glucagon For Inj IM PRN PRN Hypoglycemia Protocol Glucose 15 gm 01/21/20 22:20 Glutose 15 PO PRN PRN Hypoglycemia Protocol Albumin Human 50 mls @ 999 mls/hr 01/21/20 10:41 Albutein IVPB 02/20/20 10:42 Q10M PRN HYPOTENSION Dextrose 1,000 mls @ 100 mls/hr 01/21/20 22:20 Dextrose 5% 1,000 Ml IVPB PRN PRN Hypoglycemia Protocol Vancomycin HCl 1,750 mg in 500 mls @ 333.333 mls/hr 01/24/20 07:42 Vancomycin 1,750 Mg/D5w 500 Ml IVPB PRN PRN PER PROTOCOL Insulin Aspart 2 - 5 units 01/22/20 08:00 0
--- NOTE | 2020-01-26 16:33 | P.PNNP_ITS ---
Progress Note: A&P Assessment and Plan (1) End stage renal disease: Code(s): N18.6 - End stage renal disease Status: Chronic Assessment and Plan: * HD today and continue M// schedule * follow electrolytes, volume status, and clearance (2) Bacteremia due to coagulase-negative Staphylococcus: Code(s): R78.81 - Bacteremia; B95.7 - Other staphylococcus as the cause of diseases classified elsewhere Status: Acute Assessment and Plan: * admission cultures noted * on IV vancomycin * repeat blood culture negative * source?? * vancomycin can be dosed with dialysis on discharge if needed (3) Respiratory failure: Code(s): J96.90 - Respiratory failure, unspecified, unspecified whether with hypoxia or hypercapnia Status: Acute Assessment and Plan: * clinically better * suspect due to a combination of #3, pneumonia(?), and pulmonary emboli * continue current measures (supplemental oxygen, antibiotics, nebs...etc) * follow respiratory status (4) Diastolic CHF: Qualifiers: Heart failure chronicity: chronic Qualified Code(s): I50.32 - Chronic diastolic (congestive) heart failure Code(s): I50.30 - Unspecified diastolic (congestive) heart failure Status: Chronic Assessment and Plan: * some exacerbation noted by admission findings * fluid status better s/p aggressive ultrafiltration with HD * continue current therapy (5) Essential hypertension: Code(s): I10 - Essential (primary) hypertension Status: Chronic Assessment and Plan: * reasonable control but fluctuates * follow trend of hemodynamics with current medications * would not be opposed to titration of losartan or metoprolol if needed (6) Chronic anemia: Code(s): D64.9 - Anemia, unspecified Status: Chronic Assessment and Plan: * due to ESRD * follow H/H * Epogen with HD (7) Hyponatremia: Code(s): E87.1 - Hypo-osmolality and hyponatremia Status: Acute Assessment and Plan: * due in part to renal failure but D5W carrier fluid with heparin gtt likely more to blame * should compensate/correct with dialysis * on fluid restriction as well (8) Pulmonary embolism: Qualifiers: Acute cor pulmonale presence: without acute cor pulmonale Chronicity: acute Pulmonary embolism type: unspecified Qualified Code(s): I26.99 - Other pulmonary embolism without acute cor pulmonale Code(s): I26.99 - Other pulmonary embolism without acute cor pulmonale Status: Acute Assessment and Plan: * as noted by CT of chest * on coumadin; heparin gtt dc'd today * follow INR Will continue to follow. Subjective Date/time seen: 01/26/20 16:33 Tolerating dialysis at the time of my visit (seen on HD at ~ 4:00PM); no complaints voiced at this time; feels reasonably well; no events/issues overnight or earlier this AM. Exam Narrative: Exam Narrative: General: WD/WN male in NAD Heart: normal S1 and S2; no rub Lungs: clear anteriorly; decreased at the bases Abdomen: soft, nontender, nondistended, positive bowel sounds Extremities: no cyanosis or clubbing; no edema Skin: no rash or nodules Objective Data Vital Signs Vital Signs: Vital Signs Temp Pulse Resp BP Pulse Ox 01/26/20 16:30 69 125/55 L 01/26/20 16:15 65 143/63 H 01/26/20 16:00 64 142/57 H 01/26/20 15
--- NOTE | 2020-01-26 16:33 | PM.PNNEP ---
Progress Note: A&P Assessment and Plan (1) End stage renal disease: Code(s): N18.6 - End stage renal disease Status: Chronic Assessment and Plan: HD today and continue M/W/F schedule follow electrolytes, volume status, and clearance (2) Bacteremia due to coagulase-negative Staphylococcus: Code(s): R78.81 - Bacteremia; B95.7 - Other staphylococcus as the cause of diseases classified elsewhere Status: Acute Assessment and Plan: admission cultures noted on IV vancomycin repeat blood culture negative source?? vancomycin can be dosed with dialysis on discharge if needed (3) Respiratory failure: Code(s): J96.90 - Respiratory failure, unspecified, unspecified whether with hypoxia or hypercapnia Status: Acute Assessment and Plan: clinically better suspect due to a combination of #3, pneumonia(?), and pulmonary emboli continue current measures (supplemental oxygen, antibiotics, nebs...etc) follow respiratory status (4) Diastolic CHF: Qualifiers: Heart failure chronicity: chronic Qualified Code(s): I50.32 - Chronic diastolic (congestive) heart failure Code(s): I50.30 - Unspecified diastolic (congestive) heart failure Status: Chronic Assessment and Plan: some exacerbation noted by admission findings fluid status better s/p aggressive ultrafiltration with HD continue current therapy (5) Essential hypertension: Code(s): I10 - Essential (primary) hypertension Status: Chronic Assessment and Plan: reasonable control but fluctuates follow trend of hemodynamics with current medications would not be opposed to titration of losartan or metoprolol if needed (6) Chronic anemia: Code(s): D64.9 - Anemia, unspecified Status: Chronic Assessment and Plan: due to ESRD follow H/H Epogen with HD (7) Hyponatremia: Code(s): E87.1 - Hypo-osmolality and hyponatremia Status: Acute Assessment and Plan: due in part to renal failure but D5W carrier fluid with heparin gtt likely more to blame should compensate/correct with dialysis on fluid restriction as well (8) Pulmonary embolism: Qualifiers: Acute cor pulmonale presence: without acute cor pulmonale Chronicity: acute Pulmonary embolism type: unspecified Qualified Code(s): I26.99 - Other pulmonary embolism without acute cor pulmonale Code(s): I26.99 - Other pulmonary embolism without acute cor pulmonale Status: Acute Assessment and Plan: as noted by CT of chest on coumadin; heparin gtt dc'd today follow INR Will continue to follow. Subjective Date/time seen: 01/26/20 16:33 Tolerating dialysis at the time of my visit (seen on HD at ~ 4:00PM); no complaints voiced at this time; feels reasonably well; no events/issues overnight or earlier this AM. Exam Narrative: Exam Narrative: General: WD/WN male in NAD Heart: normal S1 and S2; no rub Lungs: clear anteriorly; decreased at the bases Abdomen: soft, nontender, nondistended, positive bowel sounds Extremities: no cyanosis or clubbing; no edema Skin: no rash or nodules Objective Data Vital Signs Vital Signs: Vital Signs Temp Pulse Resp BP Pulse Ox 01/26/20 16:30 69 125/55 L 01/26/20 16:15 65 143/63 H 01/26/20 16:00 64 142/57 H 01/26/20 15:52 36.3 C L 61 16 157/71 H 01/26/20 15:45 62 128/58 L 01/26/20 15:30 62 135/55 L 01/26/20 15:14 60 159/83 H 01/26/20 14:17 37.2 C 58 L 18 126/56 L 94 01/26/20 10:23 56 L 18 01/26/20 10:01 37.1 C 59 L 20 102/53 L 97 01/26/20 08:10 76 01/26/20 08:09 76 01/26/20 05:34 36.8 C 72 16 156/64 H 99 01/26/20 01:47 60 20 01/26/20 01:45 36.8 C 58 L 18 141/45 H 98 01/26/20 01:41 68 16 98 01/26/20 01:40 58 L 20 01/25/20 23:27 71 14 96 01/25/20 21:47 37.1 C 68 16 151/59 H 100 09
[2020-01-26] MEDS: EPOETIN ALFA-EPBX 10,000 UNITS/ML VIAL 10000 UNITS IV PUSH (17:12)
[2020-01-26 18:58] LABS: Glucose Point of Care 126 (65-105)
[2020-01-26 19:30] LABS: Vancomycin Random 18.1 ug/mL (10-20)
[2020-01-26 19:53] LABS: Legionella pneumophila Ag Ur Not Detected (Not Detected)
[2020-01-26] MEDS: FLUTICASONE PROPIONATE 0.05% NA SPR 16 GM BTL (*BKC) 2 SPRAY NASAL (20:43)
[2020-01-26] MEDS: WARFARIN (*PBKC) 3 MG TABLET 9 MG PO (20:44)
[2020-01-26] MEDS: LOSARTAN POTASSIUM 50 MG TABLET PO (20:44)
[2020-01-26 21:14] LABS: Glucose Point of Care 234 (65-105)
[2020-01-27] VITALS (17 sets, daily range): BP systolic 126–165; BP diastolic 50–75; PULSE 59–83; RESP 12–22; TEMP 36.7–37.8; O2SAT 95–100
[2020-01-27 06:16] LABS: Basophils Absolute Auto 0.1 K/mm3 (0.0-0.1); Basophils Percent Auto 0.7 % (0.2-1.2); Eosinophils Absolute Auto 0.3 K/mm3 (0-0.3); Eosinophils Percent Auto 3.3 % (0-4.4); Hematocrit 29.9 % (42.0-52.0); Hemoglobin 10.3 g/dL (14.0-18.0); Immature Granulocyte Absolute 0.09 K/mm3 (0.00-0.031); Immature Granulocyte Percent A 0.9 % (0-0.5); Lymphocytes Absolute Auto 1.33 K/mm3 (0.9-3.2); Lymphocytes Percent Auto 13.8 % (18.3-44.2); Mean Corpuscular HGB Conc 34.4 g/dl (32-36); Mean Corpuscular Hemoglobin 34.9 pg (26-34); Mean Corpuscular Volume 101.4 fl (80-100); Mean Platelet Volume 9.4 fl (7.4-10.4); Monocytes Absolute Auto 2.2 K/mm3 (0.1-0.6); Monocytes Percent Auto 22.6 % (2.6-8.5); Neutrophils Absolute Auto 5.7 K/mm3 (1.3-6.7); Neutrophils Percent Auto 58.7 % (45.5-73.1); Platelet Count Result 290 k/mm3 (150-375); Red Blood Count 2.95 M/mm3 (4.6-6.20); Red Cell Distribution Width 14.9 % (11.5-14.5); White Blood Count 9.7 K/mm3 (4.5-10.0)
[2020-01-27 06:23] LABS: INR 2.5; Prothrombin Time 26.3 Seconds (11.1-14.7)
[2020-01-27 06:51] LABS: Alanine Aminotransferase 10 U/L (4-50); Albumin Level 3.4 g/dL (3.5-5.1); Alkaline Phosphatase 77 U/L (38-126); Anion Gap 11 mmol/L (8-16); Aspartate Amino Transferase 12 U/L (17-59); Bilirubin,Total 0.3 mg/dL (0.2-1.3); Blood Urea Nitrogen 26 mg/dL (9-20); Calcium 8.3 mg/dL (8.4-10.2); Carbon Dioxide 28 mmol/L (22-30); Chloride 90 mmol/L (98-107); Estimated CRCL calculation 14 ml/min; Estimated Glomerular Filt Rate 8; Glucose 114 mg/dL (75-110); Magnesium 1.9 mg/dL (1.6-2.3); Potassium 4.4 mmol/L (3.4-5.0); Sodium 129 mmol/L (137-145)
[2020-01-27 07:54] LABS: Glucose Point of Care 135 (65-105)
[2020-01-27] MEDS: AMIODARONE HCL 200 MG TABLET PO (08:28)
[2020-01-27] MEDS: METOPROLOL SUCCINATE EXT REL 50 MG TABCR PO (08:29)
[2020-01-27] MEDS: MAGNESIUM OXIDE 200 MG TABLET PO ×2 (08:29→20:45)
[2020-01-27] MEDS: GABAPENTIN 100 MG CAPSULE 200 MG PO ×3 (08:29→16:26)
[2020-01-27] MEDS: DORNASE ALFA INH SOLN 1 MG/ML 2.5 ML AMP 2.5 MG INHALATION ×2 (08:46→20:09)
--- NOTE | 2020-01-27 11:22 | PM.IMPN ---
Progress Note: A&P Assessment and Plan (1) Acute on chronic respiratory failure with hypoxia: Code(s): J96.21 - Acute and chronic respiratory failure with hypoxia Status: Acute Assessment and Plan: ----- the patient started feeling short of breath last night and his oxygen was increased to 4 L and is usually on 2 at home. He is satting 95% and feeling better now that is increased although he does not feel great. He just finished doxycycline and is on vancomycin. His hypoxia could be due to his PE but I will get a repeat chest x-ray to ensure no worsening pleural effusions or infiltrates. may adjust treatment depending on that. For this reason, I am going to keep him another night and monitor him. he does have some swelling in his LE so maybe he needs more fluid taken off at dialysis tomorrow. Await xray results. Will wean oxygen as tolerated. COVID negative 01/20 (2) Pneumonia: Qualifiers: Pneumonia type: due to unspecified organism Laterality: bilateral Lung location: upper lobe of lung Qualified Code(s): J18.9 - Pneumonia, unspecified organism Code(s): J18.9 - Pneumonia, unspecified organism Status: Acute Assessment and Plan: -----Completed a course of IV doxycycline for suspected pneumonia and on IV vancomycin for Staph bacteremia. Sputum culture without any pathogens identified. Pneumococcal urine antigen and legionella negative. See above plan of care. Continue O2, pulmozyme and IS. (3) Pulmonary embolism: Qualifiers: Acute cor pulmonale presence: without acute cor pulmonale Chronicity: acute Pulmonary embolism type: unspecified Qualified Code(s): I26.99 - Other pulmonary embolism without acute cor pulmonale Code(s): I26.99 - Other pulmonary embolism without acute cor pulmonale Status: Acute Assessment and Plan: -----CTA chest shows right lower lobe and right upper lobe pulmonary emboli with low clot burden. INR was subtherapeutic on long-term warfarin had been on hold secondary to a dental surgery. INR therapeutic today, heparin discontinued. Recheck INR tomorrow. (4) Bacteremia due to coagulase-negative Staphylococcus: Code(s): R78.81 - Bacteremia; B95.7 - Other staphylococcus as the cause of diseases classified elsewhere Status: Acute Assessment and Plan: -----Blood cultures from 01/20 grew coagulase negative Staph likely d/t abrasion on his left hand but pt also had dental sx 2 weeks prior. UE fistula does not appear infected. Repeat blood cultures 01/21 are have no growth to date. Continue IV Vancomycin, he has gotten 4 doses so far (th, , and ). Will need [address] Edward's recommendations (5) Subtherapeutic international normalized ratio (INR): Code(s): R79.1 - Abnormal coagulation profile Status: Acute Assessment and Plan: ----Resolved. Continue his warfarin 9 mg daily. 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 (6) Paroxysmal atrial fibrillation: Code(s): I48.0 - Paroxysmal atrial fibrillation Status: Acute Assessment and Plan: ------- Rate controlled on home amiodarone, metoprolol. Was in NSR for me today. Continue warfarin. (7) Obstructive sleep apnea on CPAP: Code(s): G47.33 - Obstructive sleep apnea (adult) (pediatric); Z99.89 - Dependence on other enabling machines and devices Status: Acute Assessment and Plan: ------Continue CPAP (8) Essential hypertension: Code(s): I10 - Essential (primary) hypertension Status: Chronic Assessment and Plan: -----Last bp 131/53. Continue home losartan, metoprolol. Increased his losartan 01/24. Monitor BP and adjust treatment as needed. (9) End-stage renal disease on hemodialysis: Code(s): N18.6 - End stage renal disease; Z99.2 - Dependence on renal dialysis Status: Chronic Asses
[2020-01-27 11:30] LABS: Glucose Point of Care 177 (65-105)
--- NOTE | 2020-01-27 12:35 | WPDINFPN2 ---
Progress Note: A&P Assessment and Plan (1) Bacteremia due to coagulase-negative Staphylococcus: Code(s): R78.81 - Bacteremia; B95.7 - Other staphylococcus as the cause of diseases classified elsewhere Status: Acute Assessment and Plan: 1. CNSS bacteremia with infection, skin source, clinically stable 2. CRF, MWF schedule 3. Dyspnea, now on O2, possible HCAP, though CNSS bacteremia may be contributing REC Vanc # 6/7. PharmD dosing, target trough 10-15. CXR ordered, also redo BCs Subjective Date/time seen: 01/27/20 12:35 Interval history: since this am, dizzy, dyspnea, cough Exam Narrative: Exam Narrative: afebrile Const: General: no acute distress and in distress Neck: Neck: no JVD Resp: Effort & Inspection: abnormal respiratory effort Auscultation: rales and no wheezes Cardio: Rate: regular rate Rhythm: regular rhythm Heart sounds: no murmurs GI: GI Palp: Yes Soft to palpation and No Tenderness to palpation present (GI) Skin: General skin exam: normal color and no rashes or lesions noted Objective Data Vital Signs Vital Signs: Vital Signs - 24 hr 01/26/20 14:17 01/26/20 15:14 01/26/20 15:30 Temperature 37.2 C Pulse Rate 58 L 60 62 Respiratory Rate 18 Blood Pressure 126/56 L 159/83 H 135/55 L Pulse Oximetry 94 01/26/20 15:45 01/26/20 15:52 01/26/20 16:00 Temperature 36.3 C L Pulse Rate 62 61 64 Respiratory Rate 16 Blood Pressure 128/58 L 157/71 H 142/57 H Pulse Oximetry 01/26/20 16:15 01/26/20 16:30 01/26/20 16:45 Temperature Pulse Rate 65 69 68 Respiratory Rate Blood Pressure 143/63 H 125/55 L 160/76 H Pulse Oximetry 01/26/20 17:00 01/26/20 17:15 01/26/20 17:30 Temperature Pulse Rate 67 67 71 Respiratory Rate Blood Pressure 142/68 H 156/66 H 154/77 H Pulse Oximetry 01/26/20 17:45 01/26/20 18:00 01/26/20 18:15 Temperature Pulse Rate 70 71 73 Respiratory Rate Blood Pressure 150/75 H 160/71 H 163/75 H Pulse Oximetry 01/26/20 18:32 01/26/20 20:00 01/26/20 21:00 Temperature 36.3 C L 36.8 C Pulse Rate 76 74 79 Respiratory Rate 16 20 18 Blood Pressure 165/59 H 131/52 L Pulse Oximetry 96 99 01/26/20 21:13 01/27/20 00:00 01/27/20 01:13 Temperature 36.8 C Pulse Rate 77 67 69 Respiratory Rate 18 18 12 Blood Pressure 129/50 L Pulse Oximetry 100 99 01/27/20 01:48 01/27/20 01:56 01/27/20 04:00 Temperature 36.7 C Pulse Rate 65 69 63 Respiratory Rate 16 16 20 Blood Pressure 126/52 L Pulse Oximetry 100 01/27/20 08:28 01/27/20 08:29 01/27/20 08:47 Temperature Pulse Rate 64 64 68 Respiratory Rate 18 Blood Pressure Pulse Oximetry 96 01/27/20 08:51 01/27/20 09:05 Temperature 37.4 C Pulse Rate 66 83 Respiratory Rate 18 20 Blood Pressure 131/53 L Pulse Oximetry 95 Intake/Output Intake/Output: Intake & Output 01/24/20 01/25/20 01/26/20 01/27/20 23:59 23:59 23:59 23:59 Intake Total 2316 2254 1230 670 Output Total 592 228 9255 300 Balance 1366 1404 -2120 370 Meds/Results Medications: Active Medications Generic Name Dose Route Start Last Admin Trade Name Freq PRN Reason Stop Dose Admin Amiodarone HCl 200 mg 01/22/20 09:00 01/27/20 08:28 Pacerone PO 200 mg DAILY LUDWIG Administration Dextrose 12.5 gm 01/21/20 22:20 Dextrose 50% Syringe IV PUSH PRN PRN Hypoglycemia Protocol Dornase Pablo 2.5 mg 01/24/20 14:00 01/27/20 08:46 Pulmozyme INHALATION 2.5 mg Q12HRT LUDWIG Administration Fluticasone Propionate 2 spray 01/21/20 21:00 01/26/20 20:43 Flonase 0.05% Nasal [place] NASAL 2 spray HS LUDWIG Administration Gabapentin 200 mg 01/21/20 22:35 01/27/20 12:28 Neurontin PO 200 mg TID LUDWIG Administration Glucagon 1 mg 01/21/20 22:20 Glucagon For Inj IM PRN PRN Hypoglycemia Protocol Glucose 15 gm 01/21/20 22:20 Glutose 15 PO PRN PRN Hypoglycemia Protocol Albumi
--- NOTE | 2020-01-27 13:45 | PC.NURSE ---
Called Nandini MALHOTRA and notified her of CXR results and patient with temp of 99.5 (via voice message). Patient states he feels cruddy and feels short of breath at rest and with minimal exertion today. Productive cough continues as well. O2 sat remains 99% on room air.
[2020-01-27 16:20] LABS: Glucose Point of Care 132 (65-105)
--- NOTE | 2020-01-27 17:02 | P.PNNP_ITS ---
Progress Note: A&P Assessment and Plan (1) End stage renal disease: Code(s): N18.6 - End stage renal disease Status: Chronic Assessment and Plan: * HD tomorrow and continue M/W/ schedule * follow electrolytes, volume status, and clearance (2) Bacteremia due to coagulase-negative Staphylococcus: Code(s): R78.81 - Bacteremia; B95.7 - Other staphylococcus as the cause of diseases classified elsewhere Status: Acute Assessment and Plan: * admission cultures noted * on IV vancomycin * repeat blood culture negative * source?? * vancomycin can be dosed with dialysis on discharge if needed (3) Respiratory failure: Code(s): J96.90 - Respiratory failure, unspecified, unspecified whether with hypoxia or hypercapnia Status: Acute Assessment and Plan: * clinically better * suspect due to a combination of #3, pneumonia(?), and pulmonary emboli * continue current measures (supplemental oxygen, antibiotics, nebs...etc) * follow respiratory status (4) Diastolic CHF: Qualifiers: Heart failure chronicity: chronic Qualified Code(s): I50.32 - Chronic diastolic (congestive) heart failure Code(s): I50.30 - Unspecified diastolic (congestive) heart failure Status: Chronic Assessment and Plan: * some exacerbation noted by admission findings * fluid status better s/p aggressive ultrafiltration with HD * continue current therapy (5) Essential hypertension: Code(s): I10 - Essential (primary) hypertension Status: Chronic Assessment and Plan: * reasonable control but fluctuates * follow trend of hemodynamics with current medications * would not be opposed to titration of losartan or metoprolol if needed (6) Chronic anemia: Code(s): D64.9 - Anemia, unspecified Status: Chronic Assessment and Plan: * due to ESRD * follow H/H * Epogen with HD (7) Hyponatremia: Code(s): E87.1 - Hypo-osmolality and hyponatremia Status: Acute Assessment and Plan: * due in part to renal failure but D5W carrier fluid with heparin gtt likely more to blame * should compensate/correct with dialysis * on fluid restriction as well (8) Pulmonary embolism: Qualifiers: Acute cor pulmonale presence: without acute cor pulmonale Chronicity: acute Pulmonary embolism type: unspecified Qualified Code(s): I26.99 - Other pulmonary embolism without acute cor pulmonale Code(s): I26.99 - Other pulmonary embolism without acute cor pulmonale Status: Acute Assessment and Plan: * as noted by CT of chest * on coumadin; heparin gtt dc'd today * follow INR Will continue to follow. Subjective Date/time seen: 01/27/20 17:02 Tolerated dialysis yesterday without any issue or problems; has noted some swelling/edema still so IV diuretics ordered in an effort to compensate; no other acute issues to report; no distress noted. Exam Narrative: Exam Narrative: General: WD/WN male in NAD Heart: normal S1 and S2; no rub Lungs: clear anteriorly; decreased at the bases Abdomen: soft, nontender, nondistended, positive bowel sounds Extremities: no cyanosis or clubbing; no edema Skin: warm and intact Objective Data Vital Signs Vital Signs: Vital Signs Temp Pulse Resp BP Pulse Ox 01/27/20 14:18 60 18 01/27/20 14:13 60 18 01/27/20 13:15 37.5 C 59 L 22 H 145/60
--- NOTE | 2020-01-27 17:02 | PM.PNNEP ---
Progress Note: A&P Assessment and Plan (1) End stage renal disease: Code(s): N18.6 - End stage renal disease Status: Chronic Assessment and Plan: HD tomorrow and continue M/W/F schedule follow electrolytes, volume status, and clearance (2) Bacteremia due to coagulase-negative Staphylococcus: Code(s): R78.81 - Bacteremia; B95.7 - Other staphylococcus as the cause of diseases classified elsewhere Status: Acute Assessment and Plan: admission cultures noted on IV vancomycin repeat blood culture negative source?? vancomycin can be dosed with dialysis on discharge if needed (3) Respiratory failure: Code(s): J96.90 - Respiratory failure, unspecified, unspecified whether with hypoxia or hypercapnia Status: Acute Assessment and Plan: clinically better suspect due to a combination of #3, pneumonia(?), and pulmonary emboli continue current measures (supplemental oxygen, antibiotics, nebs...etc) follow respiratory status (4) Diastolic CHF: Qualifiers: Heart failure chronicity: chronic Qualified Code(s): I50.32 - Chronic diastolic (congestive) heart failure Code(s): I50.30 - Unspecified diastolic (congestive) heart failure Status: Chronic Assessment and Plan: some exacerbation noted by admission findings fluid status better s/p aggressive ultrafiltration with HD continue current therapy (5) Essential hypertension: Code(s): I10 - Essential (primary) hypertension Status: Chronic Assessment and Plan: reasonable control but fluctuates follow trend of hemodynamics with current medications would not be opposed to titration of losartan or metoprolol if needed (6) Chronic anemia: Code(s): D64.9 - Anemia, unspecified Status: Chronic Assessment and Plan: due to ESRD follow H/H Epogen with HD (7) Hyponatremia: Code(s): E87.1 - Hypo-osmolality and hyponatremia Status: Acute Assessment and Plan: due in part to renal failure but D5W carrier fluid with heparin gtt likely more to blame should compensate/correct with dialysis on fluid restriction as well (8) Pulmonary embolism: Qualifiers: Acute cor pulmonale presence: without acute cor pulmonale Chronicity: acute Pulmonary embolism type: unspecified Qualified Code(s): I26.99 - Other pulmonary embolism without acute cor pulmonale Code(s): I26.99 - Other pulmonary embolism without acute cor pulmonale Status: Acute Assessment and Plan: as noted by CT of chest on coumadin; heparin gtt dc'd today follow INR Will continue to follow. Subjective Date/time seen: 01/27/20 17:02 Tolerated dialysis yesterday without any issue or problems; has noted some swelling/edema still so IV diuretics ordered in an effort to compensate; no other acute issues to report; no distress noted. Exam Narrative: Exam Narrative: General: WD/WN male in NAD Heart: normal S1 and S2; no rub Lungs: clear anteriorly; decreased at the bases Abdomen: soft, nontender, nondistended, positive bowel sounds Extremities: no cyanosis or clubbing; no edema Skin: warm and intact Objective Data Vital Signs Vital Signs: Vital Signs Temp Pulse Resp BP Pulse Ox 01/27/20 14:18 60 18 01/27/20 14:13 60 18 01/27/20 13:15 37.5 C 59 L 22 H 145/60 H 99 01/27/20 09:05 37.4 C 83 20 131/53 L 95 01/27/20 08:51 66 18 01/27/20 08:47 68 18 96 01/27/20 08:29 64 01/27/20 08:28 64 01/27/20 04:00 36.7 C 63 20 126/52 L 100 01/27/20 01:56 69 16 01/27/20 01:48 65 16 01/27/20 01:13 69 12 99 01/27/20 00:00 36.8 C 67 18 129/50 L 100 01/26/20 21:13 77 18 01/26/20 21:00 79 18 99 01/26/20 20:00 36.8 C 74 20 131/52 L 96 01/26/20 18:32 36.3 C L 76 16 165/59 H 01/26/20 18:15 73 163/75 H 01/26/20 18:00 71 160/71 H
[2020-01-27] MEDS: FUROSEMIDE INJ 100 MG/10 ML VIAL 80 MG IV PUSH (17:20)
[2020-01-27] MEDS: ONDANSETRON INJ 4 MG/2 ML VIAL IV PUSH (17:21)
[2020-01-27] MEDS: FLUTICASONE PROPIONATE 0.05% NA SPR 16 GM BTL (*BKC) 2 SPRAY NASAL (20:44)
[2020-01-27] MEDS: WARFARIN (*PBKC) 3 MG TABLET 9 MG PO (20:45)
[2020-01-27] MEDS: LOSARTAN POTASSIUM 50 MG TABLET PO (20:45)
[2020-01-27 20:54] LABS: Add Urine Microscopic? YES; Appearance Urine Clear (Clear); Bilirubin Urine Negative (Negative); Blood Urine 1+ (Negative); Color Urine Colorless (Yellow); Glucose Urine UA 1+ mg/dL (Negative); Ketones Urine Negative (Negative); Leukocyte Esterase Ur Negative LEU/UL (Negative); Mucus Urine Rare /lpf; Nitrate Urine Negative (Negative); Protein Urine 1+ mg/dL (Negative); Specific Grav Ur 1.006 (1.001-1.035); Urobilinogen Urine Negative mg/dL (<2.0); WBC Urine 0-3 /hpf
[2020-01-27 21:59] LABS: Glucose Point of Care 155 (65-105)
[2020-01-28] VITALS (34 sets, daily range): BP systolic 116–188; BP diastolic 40–83; PULSE 63–98; RESP 11–24; TEMP 36.1–37.9; O2SAT 93–100
--- NOTE | 2020-01-28 | ECHO_ITS ---
Patient Info Name: David Saleh Age: 69 years : 1950 Gender: Male Ht: 75 in Wt: 255 lbs BSA: 2.50 m2 HR: 85 bpm BP: 156 / 44 mmHg Heart Rhythm: Sinus Rhythm Technical Quality: Good Exam Date: 01/28/2020 2:58 PM Exam Location: [facility] Card Pulmonary Patient Status: Inpatient Admit Date: 01/21/2020 Staff Ordering Physician: Nandini Pizarro PA-C Policy Writer: Maximus Head RDCS, RT Attending Provider: Nandini Pizarro PA-C Referring Physician: Moira CHRISTY; Exam Type: CA echo doppler color flow Study Info Indications I26.99 - Other pulmonary embolism without acute cor pulmonale Complete two-dimensional, color flow and Doppler transthoracic echocardiogram is performed. Summary 1. Complete two-dimensional, color flow and Doppler transthoracic echocardiogram is performed. 2. Left ventricular systolic function is normal, estimated at 55-60%. 3. Hypokinesis of the apical septum and inferoapical beyer. 4. There is moderately increased left ventricular wall thickness. 5. The left ventricular diastolic function is grade III diastolic dysfunction. 6. Left atrial chamber dimension is moderately enlarged. 7. There is mild mitral valve regurgitation. 8. Moderate pulmonary hypertension, estimated pulmonary arterial systolic pressure is 48 mmHg. 9. There is mild tricuspid valve regurgitation. Left Ventricle Left ventricular chamber dimension is normal. Left ventricular systolic function is normal, estimated at 55-60%. There is moderately increased left ventricular wall thickness. The left ventricular diastolic function is grade III diastolic dysfunction. Hypokinesis of the apical septum and inferoapical beyer. Right Ventricle Right ventricular chamber dimension is normal. Right ventricular systolic function is normal. Left Atria Left atrial chamber dimension is moderately enlarged. Right Atria Right atrial chamber dimension is mildly enlarged. Aortic Valve The aortic valve is not well visualized. There is mild aortic valve sclerosis. There is mild aortic valve regurgitation. Pulmonic Valve The pulmonic valve is not well visualized. Mitral Valve The mitral valve has thickened leaflets. There is mild mitral valve regurgitation. The mitral valve annulus is moderately calcified. Tricuspid Valve The tricuspid valve leaflets are normal. There is mild tricuspid valve regurgitation. Moderate pulmonary hypertension, estimated pulmonary arterial systolic pressure is 48 mmHg. Pericardium/Pleural The pericardium appears not well visualized. Inferior Vena Cava Dilated inferior vena cava with >50% collapse upon inspiration consistent with elevated right atrial pressure, 10 mmHg. Aorta The aortic root size at the sinus of Valsalva is normal. Left Ventricular Outflow Tract Name Value Normal LVOT 2D LVOT Diameter 2.2 cm LVOT Doppler LVOT Peak Gradient 6 mmHg LVOT Mean Gradient 4 mmHg LVOT VTI 26 cm LVOT VTI/AV VTI Ratio 0.6 LVOT Stroke Volume
[2020-01-28 06:31] LABS: Hematocrit 25.2 % (42.0-52.0); Hemoglobin 8.7 g/dL (14.0-18.0); Mean Corpuscular HGB Conc 34.5 g/dl (32-36); Mean Corpuscular Hemoglobin 35.4 pg (26-34); Mean Corpuscular Volume 102.4 fl (80-100); Mean Platelet Volume 9.5 fl (7.4-10.4); Platelet Count Result 255 k/mm3 (150-375); Red Blood Count 2.46 M/mm3 (4.6-6.20); Red Cell Distribution Width 14.9 % (11.5-14.5); White Blood Count 9.9 K/mm3 (4.5-10.0)
[2020-01-28 06:40] LABS: INR 3.6
[2020-01-28 06:44] LABS: Anion Gap 10 mmol/L (8-16); Blood Urea Nitrogen 38 mg/dL (9-20); Calcium 7.8 mg/dL (8.4-10.2); Carbon Dioxide 28 mmol/L (22-30); Chloride 88 mmol/L (98-107); Estimated CRCL calculation 11 ml/min; Estimated Glomerular Filt Rate 6; Glucose 126 mg/dL (75-110); Potassium 4.6 mmol/L (3.4-5.0); Sodium 126 mmol/L (137-145)
[2020-01-28 06:45] LABS: Glucose Point of Care 129 (65-105)
--- NOTE | 2020-01-28 08:25 | PC.NURSE ---
Patient transferred to dialysis via stretcher, IV Saline Locked at this time.
--- NOTE | 2020-01-28 10:51 | ECG_ITS ---
Measurements Intervals [place] Rate: 73 P: 22 IL: 96 QRS: 47 QRSD: 110 T: 102 QT: 439 QTc: 486 Interpretive Statements SINUS RHYTHM WITH SHORT [place] INTERVAL INTRAVENTRICULAR CONDUCTION DELAY DELAYED PRECORDIAL R/S TRANSITION BORDERLINE ST-T WAVE ABNORMALITY- HIGH LATERAL LEADS PROLONGED QT INTERVAL BASELINE ARTIFACT- I, II, III, AVL, V3-V4 ABNORMAL ECG Electronically Signed On 01-28-2020 12:24:11 CDT by Cristhian Crane D.O.
--- NOTE | 2020-01-28 11:06 | PM.IMPN ---
Progress Note: A&P Assessment and Plan (1) Acute dyspnea: Code(s): R06.00 - Dyspnea, unspecified Status: Acute Assessment and Plan: ----- during dialysis the patient had acute shortness of breath as called the bedside. He was wheezy on the right lung and his oxygen saturations were 99% on his home 2 L. During this time he was taking a breathing treatment which he said did not help at the time but after was over he said he did feel some relief. During this he started having about a minutes worth of chest pain that felt like pressure that did not radiate to the jaw or arm Nor was it associated with diaphoresis. He had some lightheadedness earlier in the day But not during this time. EKG at bedside did not show any concern for ACS. I believe this is likely due to being fluid overloaded and having a PE. Since he is wheezy, I am going to give 1 dose of steroids which will be administered after dialysis. No nitro needed since the patient's cp had resolved. Since he has a PE, an echo will be ordered to ensure no significant right heart strain. troponins will be drawn but will likely be elevated due to end-stage renal disease. I have also ordered a chest x-ray, ABG, CBC, BMP, lactic acid, and BNP. His hemoglobin did drop a little bit today compared to yesterday with an INR 3.5, we will ensure that he is not having any blood loss. I have spoken with Dr. vicente about the chest x-ray findings and he does not believe this is indicating worsening infection. I agree since he has not had any fevers. Spoke with Dr. Bragg about the plan of care and he agrees. We are going to continue dialysis at this time because I do believe the fluid status is also a factor of his shortness of breath. He also has lower extremity pitting edema. all vitals are stable. Pt is sitting up and talking and feeling much better now. (2) Acute on chronic respiratory failure with hypoxia: Code(s): J96.21 - Acute and chronic respiratory failure with hypoxia Status: Acute Assessment and Plan: ----- see above. the patient started feeling short of breath last night and his oxygen was increased to 4 L and is usually on 2 at home. he was given 80 mg of Lasix yesterday which improved his shortness of breath and Today he is back on his 2L. He is satting 99% and feeling better now. He just finished doxycycline and is on vancomycin. See above. COVID negative 01/20 (3) Pneumonia: Qualifiers: Pneumonia type: due to unspecified organism Laterality: bilateral Lung location: upper lobe of lung Qualified Code(s): J18.9 - Pneumonia, unspecified organism Code(s): J18.9 - Pneumonia, unspecified organism Status: Acute Assessment and Plan: -----Completed a course of IV doxycycline for suspected pneumonia and on IV vancomycin for Staph bacteremia. Sputum culture without any pathogens identified. Pneumococcal urine antigen and legionella negative. See above plan of care. Continue O2, pulmozyme and IS. (4) Pulmonary embolism: Qualifiers: Acute cor pulmonale presence: without acute cor pulmonale Chronicity: acute Pulmonary embolism type: unspecified Qualified Code(s): I26.99 - Other pulmonary embolism without acute cor pulmonale Code(s): I26.99 - Other pulmonary embolism without acute cor pulmonale Status: Acute Assessment and Plan: -----CTA chest shows right lower lobe and right upper lobe pulmonary emboli with low clot burden. INR was subtherapeutic on long-term warfarin had been on hold secondary to a dental surgery. INR supratherapeutic today, will hold. Recheck INR tomorrow (5) Bacteremia due to coagulase-negative Staphylococcus: Code(s): R78.81 - Bacteremia; B95.7 - Other staphylococcus as the cause of diseases classified elsewhere Status: Acute Assessment and Plan: -----Blood cultures from 01/20 grew coagulase negative Staph likely d/t abrasi
[2020-01-28 11:09] LABS: Alveolar/Arterial O2 Gradient 101.2 mmHg; Base Excess ABG 0.9 mEq/l (+/-2.0); Carboxyhemoglobin 0.3 % THb (0-2.0); Fractional Inspired Oxygen 32 %; Methemoglobin ABG 0.1 %THb (0-1.5); Oxygen Content ABG 14.5 %vol (16.0-22.0); Oxygen Saturation ABG 96.5 % (95.0-100.0); Oxyhemoglobin 94.8 % THb (90.0-100.0); PCO2 ABG 38.1 mmHg (35.0-45.0); PO2 ABG 82.4 mmHg (80.0-100.0); PO2 FiO2 Ratio Arterial Blood 2.58 %; Reduced Hemoglobin 4.8 %THb (0-5.0); Total Hemoglobin 10.8 g/dL (12.0-18.0); pH ABG 7.435 (7.350-7.450)
[2020-01-28 11:10] LABS: Device NASAL CANNULA; Modified Allen's Test Pass; Site Drawn LEFT RADIAL
[2020-01-28] MEDS: EPOETIN ALFA-EPBX 10,000 UNITS/ML VIAL 10000 UNITS IV PUSH (11:14)
--- NOTE | 2020-01-28 11:22 | PCNWS ---
Weekly nutritional screen. Patient is tolerating current diet with adequate intake. No weight loss reported. No nutritional needs at this time.
--- NOTE | 2020-01-28 11:53 | WPDINFPN2 ---
Progress Note: A&P Assessment and Plan (1) Bacteremia due to coagulase-negative Staphylococcus: Code(s): R78.81 - Bacteremia; B95.7 - Other staphylococcus as the cause of diseases classified elsewhere Status: Acute Assessment and Plan: 1. CNSS bacteremia with infection, skin source, clinically stable. All F/U BCs ng/ngsf 2. CRF, MWF schedule 3. Dyspnea, suspect due to fluid overload and not pneumonia REC Vanc # 7/. Stop after today's dose if any. Subjective Date/time seen: 01/28/20 11:53 Interval history: Rapid response this am dyspnea and CP. On HD Exam Narrative: Exam Narrative: t max 37.8 Const: General: no acute distress Other: appears much more comfortable today vs yesterday Eyes: General: appearance normal, both eyes and all related structures Resp: Effort & Inspection: normal respiratory effort Auscultation: clear to auscultation bilaterally Cardio: Rate: regular rate Rhythm: regular rhythm Heart sounds: no murmurs GI: Inspection: non-distended GI Palp: Yes Soft to palpation and No Tenderness to palpation present (GI) Skin: General skin exam: normal color and no rashes or lesions noted Other: fingers on left without cellulitis Objective Data Vital Signs Vital Signs: Vital Signs - 24 hr 01/27/20 13:15 01/27/20 14:13 01/27/20 14:18 Temperature 37.5 C Pulse Rate 59 L 60 60 Respiratory Rate 22 H 18 18 Blood Pressure 145/60 H Pulse Oximetry 99 01/27/20 16:00 01/27/20 20:00 01/27/20 20:13 Temperature 37.8 C H 37.7 C H Pulse Rate 70 67 64 Respiratory Rate 20 20 18 Blood Pressure 146/75 H 159/65 H Pulse Oximetry 96 100 01/28/20 00:00 01/28/20 02:35 01/28/20 04:00 Temperature 36.7 C 36.5 C Pulse Rate 66 78 64 Respiratory Rate 22 H 11 L 20 Blood Pressure 142/55 H 116/40 L Pulse Oximetry 100 98 93 01/28/20 08:32 01/28/20 08:47 01/28/20 09:00 Temperature 36.8 C Pulse Rate 65 63 63 Respiratory Rate 20 Blood Pressure 118/53 L 139/67 147/60 H Pulse Oximetry 01/28/20 09:15 01/28/20 09:30 01/28/20 09:45 Temperature Pulse Rate 64 67 67 Respiratory Rate Blood Pressure 144/68 H 168/73 H 164/66 H Pulse Oximetry 01/28/20 10:00 01/28/20 10:15 01/28/20 10:30 Temperature 36.9 C Pulse Rate 70 70 69 Respiratory Rate 20 Blood Pressure 165/75 H 147/63 H 156/71 H Pulse Oximetry 01/28/20 10:43 01/28/20 10:45 01/28/20 10:47 Temperature Pulse Rate 78 73 89 Respiratory Rate 24 H Blood Pressure 188/83 H 165/75 H Pulse Oximetry 01/28/20 10:58 01/28/20 11:00 01/28/20 11:15 Temperature Pulse Rate 98 72 71 Respiratory Rate 20 Blood Pressure 158/71 H 154/68 H Pulse Oximetry 01/28/20 11:30 01/28/20 11:45 Temperature Pulse Rate 71 73 Respiratory Rate Blood Pressure 175/68 H 169/79 H Pulse Oximetry Intake/Output Intake/Output: Intake & Output 01/25/20 01/26/20 01/27/20 01/28/20 23:59 23:59 23:59 23:59 Intake Total 2254 1730 1710 430 Output Total 850 3350 700 Balance 1404 -1620 1010 430 Meds/Results Medications: Active Medications Generic Name Dose Route Start Last Admin Trade Name Freq PRN Reason Stop Dose Admin Amiodarone HCl 200 mg 01/22/20 09:00 01/27/20 08:28 Pacerone PO 200 mg DAILY LUDWIG Administration Dextrose 12.5 gm 01/21/20 22:20 Dextrose 50% Syringe IV PUSH PRN PRN Hypoglycemia Protocol Dornase Pablo 2.5 mg 01/24/20 14:00 01/28/20 08:43 Pulmozyme INHALATION Not Given Q12HRT LUDWIG Epoetin Pablo-epbx 10,000 units 01/28/20 19:42 01/28/20 11:14 Retacrit IV PUSH 01/28/20 19:43 10,000 units ONCE ONE Administration Fluticasone Propionate 2 spray 01/21/20 21:00 01/27/20 20:44 Flonase 0.05% Nasal [place] NASAL 2 spray HS LUDWIG Administration Gabapentin 200 mg 01/21/20 22:35 01/27/20 16:26 Neurontin PO 200 mg TID LUDWIG Administration Glucagon 1 mg 01/21/20 22:20 Glucagon For Inj IM PRN PRN
[2020-01-28 12:36] LABS: Basophils Absolute Auto 0.1 K/mm3 (0.0-0.1); Basophils Percent Auto 0.5 % (0.2-1.2); Eosinophils Absolute Auto 0.3 K/mm3 (0-0.3); Eosinophils Percent Auto 2.8 % (0-4.4); Hematocrit 28.9 % (42.0-52.0); Hemoglobin 9.9 g/dL (14.0-18.0); Immature Granulocyte Absolute 0.07 K/mm3 (0.00-0.031); Immature Granulocyte Percent A 0.7 % (0-0.5); Lymphocytes Absolute Auto 0.97 K/mm3 (0.9-3.2); Lymphocytes Percent Auto 10.1 % (18.3-44.2); Mean Corpuscular HGB Conc 34.3 g/dl (32-36); Mean Corpuscular Hemoglobin 34.7 pg (26-34); Mean Corpuscular Volume 101.4 fl (80-100); Mean Platelet Volume 9.3 fl (7.4-10.4); Monocytes Absolute Auto 2.1 K/mm3 (0.1-0.6); Monocytes Percent Auto 21.9 % (2.6-8.5); Neutrophils Absolute Auto 6.1 K/mm3 (1.3-6.7); Platelet Count Result 291 k/mm3 (150-375); Red Blood Count 2.85 M/mm3 (4.6-6.20); Red Cell Distribution Width 15.2 % (11.5-14.5); White Blood Count 9.6 K/mm3 (4.5-10.0)
[2020-01-28 12:46] LABS: INR 3.8; Prothrombin Time 36.7 Seconds (11.1-14.7)
[2020-01-28 13:01] LABS: Creatine Kinase MB 1.5 ng/mL (0.0-2.37); NT Pro B Type Natriuretic Pept 33400 PG/ML (5-100); Troponin I 0.033 ng/mL (0.000-0.034)
[2020-01-28 13:14] LABS: Alanine Aminotransferase 12 U/L (4-50); Albumin Level 3.5 g/dL (3.5-5.1); Alkaline Phosphatase 80 U/L (38-126); Anion Gap 7 mmol/L (8-16); Aspartate Amino Transferase 12 U/L (17-59); Bilirubin,Total 0.4 mg/dL (0.2-1.3); Blood Urea Nitrogen 14 mg/dL (9-20); Calcium 9.5 mg/dL (8.4-10.2); Carbon Dioxide 31 mmol/L (22-30); Chloride 97 mmol/L (98-107); Estimated CRCL calculation 28 ml/min; Estimated Glomerular Filt Rate 19; Glucose 176 mg/dL (75-110); Potassium 3.9 mmol/L (3.4-5.0); Sodium 135 mmol/L (137-145)
[2020-01-28 13:52] LABS: Glucose Point of Care 127 (65-105)
--- NOTE | 2020-01-28 14:18 | P.PNNP_ITS ---
Progress Note: A&P Assessment and Plan (1) End stage renal disease: Code(s): N18.6 - End stage renal disease Status: Chronic Assessment and Plan: * HD today and continue M/W/F schedule * follow electrolytes, volume status, and clearance (2) Bacteremia due to coagulase-negative Staphylococcus: Code(s): R78.81 - Bacteremia; B95.7 - Other staphylococcus as the cause of diseases classified elsewhere Status: Acute Assessment and Plan: * admission cultures noted * on IV vancomycin * repeat blood culture negative * source?? * vancomycin can be dosed with dialysis on discharge if needed (3) Respiratory failure: Code(s): J96.90 - Respiratory failure, unspecified, unspecified whether with hypoxia or hypercapnia Status: Acute Assessment and Plan: * clinically better, however, episode of shortness of breath noted earlier today * suspect due to a combination of #3, pneumonia(?), chronic lung disease and pulmonary emboli * continue current measures (supplemental oxygen, antibiotics, nebs...etc) * steroids added today and re-checking Echo * plan dry ultrafiltration tomorrow for more fluid removal * follow respiratory status (4) Diastolic CHF: Qualifiers: Heart failure chronicity: chronic Qualified Code(s): I50.32 - Chronic diastolic (congestive) heart failure Code(s): I50.30 - Unspecified diastolic (congestive) heart failure Status: Chronic Assessment and Plan: * some exacerbation noted by admission findings * fluid status better s/p aggressive ultrafiltration with HD * plan dry ultrafiltration tomorrow for more fluid removal * continue current therapy (5) Essential hypertension: Code(s): I10 - Essential (primary) hypertension Status: Chronic Assessment and Plan: * reasonable control but fluctuates * follow trend of hemodynamics with current medications * would not be opposed to titration of losartan or metoprolol if needed (6) Chronic anemia: Code(s): D64.9 - Anemia, unspecified Status: Chronic Assessment and Plan: * due to ESRD * follow H/H * Epogen with HD (7) Hyponatremia: Code(s): E87.1 - Hypo-osmolality and hyponatremia Status: Acute Assessment and Plan: * due in part to renal failure but D5W carrier fluid with heparin gtt likely more to blame * should compensate/correct with dialysis * on fluid restriction as well (8) Pulmonary embolism: Qualifiers: Acute cor pulmonale presence: without acute cor pulmonale Chronicity: acute Pulmonary embolism type: unspecified Qualified Code(s): I26.99 - Other pulmonary embolism without acute cor pulmonale Code(s): I26.99 - Other pulmonary embolism without acute cor pulmonale Status: Acute Assessment and Plan: * as noted by CT of chest * on coumadin * follow INR Will continue to follow. Subjective Date/time seen: 01/28/20 14:18 Tolerated dialysis treatment earlier today but had a rapid response for acute shortness or breath associated with mild chest discomfort; symptoms seemed a bit better following completion of breathing treatment and he was able to complete his dialysis treatment with approximately 3.7 liters fluid removal. Exam Narrative: Exam Narrative: General: WD/WN male in NAD Heart: normal S1 and S2; no rub Lungs: some wheezes at the bases and coarse Abdomen: soft, nontender, nondistended, positive bowel sounds Extremities: no cyanosis or clubbing; no james
--- NOTE | 2020-01-28 14:18 | PM.PNNEP ---
Progress Note: A&P Assessment and Plan (1) End stage renal disease: Code(s): N18.6 - End stage renal disease Status: Chronic Assessment and Plan: HD today and continue M/W/F schedule follow electrolytes, volume status, and clearance (2) Bacteremia due to coagulase-negative Staphylococcus: Code(s): R78.81 - Bacteremia; B95.7 - Other staphylococcus as the cause of diseases classified elsewhere Status: Acute Assessment and Plan: admission cultures noted on IV vancomycin repeat blood culture negative source?? vancomycin can be dosed with dialysis on discharge if needed (3) Respiratory failure: Code(s): J96.90 - Respiratory failure, unspecified, unspecified whether with hypoxia or hypercapnia Status: Acute Assessment and Plan: clinically better, however, episode of shortness of breath noted earlier today suspect due to a combination of #3, pneumonia(?), chronic lung disease and pulmonary emboli continue current measures (supplemental oxygen, antibiotics, nebs...etc) steroids added today and re-checking Echo plan dry ultrafiltration tomorrow for more fluid removal follow respiratory status (4) Diastolic CHF: Qualifiers: Heart failure chronicity: chronic Qualified Code(s): I50.32 - Chronic diastolic (congestive) heart failure Code(s): I50.30 - Unspecified diastolic (congestive) heart failure Status: Chronic Assessment and Plan: some exacerbation noted by admission findings fluid status better s/p aggressive ultrafiltration with HD plan dry ultrafiltration tomorrow for more fluid removal continue current therapy (5) Essential hypertension: Code(s): I10 - Essential (primary) hypertension Status: Chronic Assessment and Plan: reasonable control but fluctuates follow trend of hemodynamics with current medications would not be opposed to titration of losartan or metoprolol if needed (6) Chronic anemia: Code(s): D64.9 - Anemia, unspecified Status: Chronic Assessment and Plan: due to ESRD follow H/H Epogen with HD (7) Hyponatremia: Code(s): E87.1 - Hypo-osmolality and hyponatremia Status: Acute Assessment and Plan: due in part to renal failure but D5W carrier fluid with heparin gtt likely more to blame should compensate/correct with dialysis on fluid restriction as well (8) Pulmonary embolism: Qualifiers: Acute cor pulmonale presence: without acute cor pulmonale Chronicity: acute Pulmonary embolism type: unspecified Qualified Code(s): I26.99 - Other pulmonary embolism without acute cor pulmonale Code(s): I26.99 - Other pulmonary embolism without acute cor pulmonale Status: Acute Assessment and Plan: as noted by CT of chest on coumadin follow INR Will continue to follow. Subjective Date/time seen: 01/28/20 14:18 Tolerated dialysis treatment earlier today but had a rapid response for acute shortness or breath associated with mild chest discomfort; symptoms seemed a bit better following completion of breathing treatment and he was able to complete his dialysis treatment with approximately 3.7 liters fluid removal. Exam Narrative: Exam Narrative: General: WD/WN male in NAD Heart: normal S1 and S2; no rub Lungs: some wheezes at the bases and coarse Abdomen: soft, nontender, nondistended, positive bowel sounds Extremities: no cyanosis or clubbing; no edema Skin: no rash or nodules Objective Data Vital Signs Vital Signs: Vital Signs Temp Pulse Resp BP Pulse Ox 01/28/20 12:25 37.1 C 74 16 169/82 H 01/28/20 12:17 73 173/74 H 01/28/20 12:15 73 169/69 H 01/28/20 12:00 72 155/68 H 01/28/20 11:45 73 169/79 H 01/28/20 11:30 71 175/68 H 01/28/20 11:15 71 154/68 H 01/28/20 11:00 72 158/71 H 01/28/20 10:58 98 20 01/28/20 10:47 89 24 H 01/27
[2020-01-28] MEDS: GABAPENTIN 100 MG CAPSULE 200 MG PO ×2 (16:09→20:16)
[2020-01-28] MEDS: MAGNESIUM OXIDE 200 MG TABLET PO ×2 (16:10→20:16)
[2020-01-28] MEDS: AMIODARONE HCL 200 MG TABLET PO (16:10)
[2020-01-28] MEDS: methylPREDNISolone SOD SUCC 40 MG VIAL IV PUSH (16:10)
[2020-01-28] MEDS: METOPROLOL SUCCINATE EXT REL 50 MG TABCR PO (16:11)
[2020-01-28 16:32] LABS: Glucose Point of Care 168 (65-105)
[2020-01-28 19:13] LABS: Troponin I 0.036 ng/mL (0.000-0.034)
[2020-01-28] MEDS: FLUTICASONE PROPIONATE 0.05% NA SPR 16 GM BTL (*BKC) 2 SPRAY NASAL (20:16)
[2020-01-28] MEDS: LOSARTAN POTASSIUM 50 MG TABLET PO (20:16)
[2020-01-28] MEDS: DORNASE ALFA INH SOLN 1 MG/ML 2.5 ML AMP 2.5 MG INHALATION (20:43)
[2020-01-28 21:41] LABS: Troponin I 0.046 ng/mL (0.000-0.034)
[2020-01-29] VITALS (36 sets, daily range): BP systolic 139–201; BP diastolic 46–90; PULSE 61–86; RESP 12–22; TEMP 0–37.4; O2SAT 92–100
[2020-01-29 05:48] LABS: Hematocrit 28.8 % (42.0-52.0); Hemoglobin 9.9 g/dL (14.0-18.0); Mean Corpuscular HGB Conc 34.4 g/dl (32-36); Mean Corpuscular Hemoglobin 34.6 pg (26-34); Mean Corpuscular Volume 100.7 fl (80-100); Mean Platelet Volume 9.3 fl (7.4-10.4); Platelet Count Result 347 k/mm3 (150-375); Red Blood Count 2.86 M/mm3 (4.6-6.20); Red Cell Distribution Width 14.8 % (11.5-14.5); White Blood Count 11.1 K/mm3 (4.5-10.0)
[2020-01-29 06:01] LABS: INR 4.1; Prothrombin Time 39.2 Seconds (11.1-14.7)
[2020-01-29 06:02] LABS: Glucose Point of Care 260 (65-105)
[2020-01-29 06:10] LABS: Albumin Level 3.5 g/dL (3.5-5.1); Anion Gap 10 mmol/L (8-16); Blood Urea Nitrogen 26 mg/dL (9-20); Calcium 8.9 mg/dL (8.4-10.2); Carbon Dioxide 28 mmol/L (22-30); Chloride 94 mmol/L (98-107); Estimated CRCL calculation 15 ml/min; Estimated Glomerular Filt Rate 9; Glucose 207 mg/dL (75-110); Phosphorus 4.1 mg/dL (2.5-4.5); Potassium 4.9 mmol/L (3.4-5.0); Sodium 132 mmol/L (137-145)
[2020-01-29 07:48] LABS: Glucose Point of Care 211 (65-105)
[2020-01-29] MEDS: METOPROLOL SUCCINATE EXT REL 50 MG TABCR PO (08:14)
[2020-01-29] MEDS: MAGNESIUM OXIDE 200 MG TABLET PO ×2 (08:14→21:09)
[2020-01-29] MEDS: GABAPENTIN 100 MG CAPSULE 200 MG PO ×3 (08:15→17:20)
[2020-01-29] MEDS: AMIODARONE HCL 200 MG TABLET PO (08:15)
[2020-01-29] MEDS: INSULIN ASPART (*BKC) 100 UNITS/ML SUB-Q ×2 (08:15→13:18)
[2020-01-29] MEDS: DORNASE ALFA INH SOLN 1 MG/ML 2.5 ML AMP 2.5 MG INHALATION ×2 (08:33→20:30)
[2020-01-29 09:59] LABS: Troponin I 0.051 ng/mL (0.000-0.034)
--- NOTE | 2020-01-29 11:40 | P.PNNP_ITS ---
Progress Note: A&P Assessment and Plan (1) End stage renal disease: Code(s): N18.6 - End stage renal disease Status: Chronic Assessment and Plan: * HD tomorrow and continue M/W/ schedule * follow electrolytes, volume status, and clearance (2) Bacteremia due to coagulase-negative Staphylococcus: Code(s): R78.81 - Bacteremia; B95.7 - Other staphylococcus as the cause of diseases classified elsewhere Status: Acute Assessment and Plan: * admission cultures noted * on IV vancomycin * repeat blood culture negative * source?? * vancomycin can be dosed with dialysis on discharge if needed (3) Respiratory failure: Code(s): J96.90 - Respiratory failure, unspecified, unspecified whether with hypoxia or hypercapnia Status: Acute Assessment and Plan: * clinically better, however, episode of shortness of breath noted earlier today * suspect due to a combination of #3, pneumonia(?), chronic lung disease and pulmonary emboli * continue current measures (supplemental oxygen, antibiotics, nebs...etc) * steroids added today and re-checking Echo * plan dry ultrafiltration today and possibly Sunday for more fluid removal * follow respiratory status (4) Diastolic CHF: Qualifiers: Heart failure chronicity: chronic Qualified Code(s): I50.32 - Chronic diastolic (congestive) heart failure Code(s): I50.30 - Unspecified diastolic (congestive) heart failure Status: Chronic Assessment and Plan: * some exacerbation noted by admission findings * fluid status better s/p aggressive ultrafiltration with HD * plan dry ultrafiltration tomorrow for more fluid removal * continue current therapy (5) Essential hypertension: Code(s): I10 - Essential (primary) hypertension Status: Chronic Assessment and Plan: * reasonable control but fluctuates * follow trend of hemodynamics with current medications * would not be opposed to titration of losartan or metoprolol if needed (6) Chronic anemia: Code(s): D64.9 - Anemia, unspecified Status: Chronic Assessment and Plan: * due to ESRD * follow H/H * Epogen with HD (7) Hyponatremia: Code(s): E87.1 - Hypo-osmolality and hyponatremia Status: Acute Assessment and Plan: * due in part to renal failure but D5W carrier fluid with heparin gtt likely more to blame * should compensate/correct with dialysis * on fluid restriction as well (8) Pulmonary embolism: Qualifiers: Acute cor pulmonale presence: without acute cor pulmonale Chronicity: acute Pulmonary embolism type: unspecified Qualified Code(s): I26.99 - Other pulmonary embolism without acute cor pulmonale Code(s): I26.99 - Other pulmonary embolism without acute cor pulmonale Status: Acute Assessment and Plan: * as noted by CT of chest * on coumadin * follow INR Will continue to follow. Subjective Date/time seen: 01/29/20 11:40 Tolerating dry ultrafiltation at the time of my visit; breathing seed a bit better but not back to baseline; no events or issues to report at this time. Exam Narrative: Exam Narrative: General: WD/WN male in NAD Heart: normal S1 and S2; no rub Lungs: some wheezes at the bases and coarse Abdomen: soft, nontender, nondistended, positive bowel sounds Extremities: no cyanosis or clubbing; no edema Skin: no rash or nodules Objective Data Vital Signs Vital Signs:
--- NOTE | 2020-01-29 11:40 | PM.PNNEP ---
Progress Note: A&P Assessment and Plan (1) End stage renal disease: Code(s): N18.6 - End stage renal disease Status: Chronic Assessment and Plan: HD tomorrow and continue M/W/F schedule follow electrolytes, volume status, and clearance (2) Bacteremia due to coagulase-negative Staphylococcus: Code(s): R78.81 - Bacteremia; B95.7 - Other staphylococcus as the cause of diseases classified elsewhere Status: Acute Assessment and Plan: admission cultures noted on IV vancomycin repeat blood culture negative source?? vancomycin can be dosed with dialysis on discharge if needed (3) Respiratory failure: Code(s): J96.90 - Respiratory failure, unspecified, unspecified whether with hypoxia or hypercapnia Status: Acute Assessment and Plan: clinically better, however, episode of shortness of breath noted earlier today suspect due to a combination of #3, pneumonia(?), chronic lung disease and pulmonary emboli continue current measures (supplemental oxygen, antibiotics, nebs...etc) steroids added today and re-checking Echo plan dry ultrafiltration today and possibly Sunday for more fluid removal follow respiratory status (4) Diastolic CHF: Qualifiers: Heart failure chronicity: chronic Qualified Code(s): I50.32 - Chronic diastolic (congestive) heart failure Code(s): I50.30 - Unspecified diastolic (congestive) heart failure Status: Chronic Assessment and Plan: some exacerbation noted by admission findings fluid status better s/p aggressive ultrafiltration with HD plan dry ultrafiltration tomorrow for more fluid removal continue current therapy (5) Essential hypertension: Code(s): I10 - Essential (primary) hypertension Status: Chronic Assessment and Plan: reasonable control but fluctuates follow trend of hemodynamics with current medications would not be opposed to titration of losartan or metoprolol if needed (6) Chronic anemia: Code(s): D64.9 - Anemia, unspecified Status: Chronic Assessment and Plan: due to ESRD follow H/H Epogen with HD (7) Hyponatremia: Code(s): E87.1 - Hypo-osmolality and hyponatremia Status: Acute Assessment and Plan: due in part to renal failure but D5W carrier fluid with heparin gtt likely more to blame should compensate/correct with dialysis on fluid restriction as well (8) Pulmonary embolism: Qualifiers: Acute cor pulmonale presence: without acute cor pulmonale Chronicity: acute Pulmonary embolism type: unspecified Qualified Code(s): I26.99 - Other pulmonary embolism without acute cor pulmonale Code(s): I26.99 - Other pulmonary embolism without acute cor pulmonale Status: Acute Assessment and Plan: as noted by CT of chest on coumadin follow INR Will continue to follow. Subjective Date/time seen: 01/29/20 11:40 Tolerating dry ultrafiltation at the time of my visit; breathing seed a bit better but not back to baseline; no events or issues to report at this time. Exam Narrative: Exam Narrative: General: WD/WN male in NAD Heart: normal S1 and S2; no rub Lungs: some wheezes at the bases and coarse Abdomen: soft, nontender, nondistended, positive bowel sounds Extremities: no cyanosis or clubbing; no edema Skin: no rash or nodules Objective Data Vital Signs Vital Signs: Vital Signs Temp Pulse Resp BP Pulse Ox 01/29/20 09:15 36.8 C 78 22 H 161/70 H 01/29/20 09:10 37.3 C 82 22 H 148/90 H 95 01/29/20 08:47 77 18 01/29/20 08:33 74 18 93 01/29/20 08:15 86 01/29/20 08:14 86 01/29/20 04:00 36.9 C 81 20 152/62 H 97 01/29/20 01:55 74 13 01/29/20 01:47 77 13 95 01/29/20 01:45 76 13 01/29/20 00:00 37.3 C 74 20 149/46 H 92 01/28/20 20:54 84 16 01/28/20 20:48 83 16 94 01/28/20 20:38 83 16
[2020-01-29 11:49] LABS: Troponin I 0.043 ng/mL (0.000-0.034)
--- NOTE | 2020-01-29 12:36 | PM.IMPN ---
Progress Note: A&P Assessment and Plan (1) Acute dyspnea: Code(s): R06.00 - Dyspnea, unspecified Status: Acute Assessment and Plan: ----- during dialysis 01/27 the patient had acute shortness of breath with chest pain. Today the patient states he is better but still having AMAYA and SOB. He was wheezy on the right lung and his oxygen saturations have been okay. Work up yesterday revealed pulmonary vascular congestion, subpleural edema, and pulmonary edema. They got 3700ml off in dialysis 01/27 and he is doing dialysis again today. He feels better than yesterday but still having SOB. He does have a PE (he was off his warfarin for a dental procedure) and was treated for PNA. EKG showed boarderline ST-T wave abnomralities in the lateral leads and tops were originally negative but have creeped up. Because the patient had CP, AMAYA and new PE an echo was done which showed hypokinesis of the apical septum and inferoapical beyer with grade 3 diastolic dysfunction. I pulled the echo from 11/01/18 which does not show wall abnormalities but did show grade 2 diastolic dysfunction. 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 During this time he states he coded twice and was trached and pegged. He still follows Dr. Calderon for routine cardiac care. He is not on aspirin but only on coumadin. I will ask cardiology their thoughts. I appreciate their recommendations. (2) Acute on chronic respiratory failure with hypoxia: Code(s): J96.21 - Acute and chronic respiratory failure with hypoxia Status: Acute Assessment and Plan: ----- see above. Pt on home 2L and doing better. Continue pulling fluid off with dialysis. He just finished doxycycline and is on vancomycin. See above. COVID negative 01/20 (3) Pneumonia: Qualifiers: Laterality: bilateral Lung location: upper lobe of lung Pneumonia type: due to unspecified organism Qualified Code(s): J18.9 - Pneumonia, unspecified organism Code(s): J18.9 - Pneumonia, unspecified organism Status: Acute Assessment and Plan: -----Completed a course of IV doxycycline and Vanc for suspected pneumonia. Sputum culture without any pathogens identified. Pneumococcal urine antigen and legionella negative. See above plan of care. Continue O2, pulmozyme and IS. (4) Pulmonary embolism: Qualifiers: Acute cor pulmonale presence: without acute cor pulmonale Chronicity: acute Pulmonary embolism type: unspecified Qualified Code(s): I26.99 - Other pulmonary embolism without acute cor pulmonale Code(s): I26.99 - Other pulmonary embolism without acute cor pulmonale Status: Acute Assessment and Plan: -----CTA chest shows right lower lobe and right upper lobe pulmonary emboli with low clot burden. INR was subtherapeutic on long-term warfarin had been on hold secondary to a dental surgery. INR supratherapeutic today, will hold. Recheck INR tomorrow (5) Bacteremia due to coagulase-negative Staphylococcus: Code(s): R78.81 - Bacteremia; B95.7 - Other staphylococcus as the cause of diseases classified elsewhere Status: Acute Assessment and Plan: -----Blood cultures from 01/20 grew coagulase negative Staph likely d/t abrasion on his left hand but pt also had dental sx 2 weeks prior. UE fistula does not appear infected. Repeat blood cultures 01/21 are have no growth to date. Vanc completed. (6) Subtherapeutic international normalized ratio (INR): Code(s): R79.1 - Abnormal coagulation profile Status: Acute Assessment and Plan: ----Resolved. now supratherapeutic. I spoke with the pt who states he is usually on 3mg a day and was working with the coumadin clinic who was adjusting his dose. He claims he was on 9mg a day the days he doesn't take dialysis and 3mg a day on MWF. When we started him here, his home meds said 9mg which was obviously
[2020-01-29 13:14] LABS: Glucose Point of Care 210 (65-105)
--- NOTE | 2020-01-29 14:04 | WPDINFPN2 ---
Progress Note: A&P Assessment and Plan (1) Bacteremia due to coagulase-negative Staphylococcus: Code(s): R78.81 - Bacteremia; B95.7 - Other staphylococcus as the cause of diseases classified elsewhere Status: Acute Assessment and Plan: 1. CNSS bacteremia with infection, skin source, clinically stable. All F/U BCs ng/ngsf 2. CRF, MWF schedule 3. Dyspnea, suspect due to fluid overload and not pneumonia REC Now off vanc, no further tx, will see prn. Subjective Date/time seen: 01/29/20 14:04 Interval history: no new complaints except hemoptysis this am -- ?due to his PE Exam Narrative: Exam Narrative: t max 37.9 Const: General: no acute distress Objective Data Vital Signs Vital Signs: Vital Signs - 24 hr 01/28/20 14:24 01/28/20 16:00 01/28/20 16:10 Temperature 37.1 C Pulse Rate 91 78 76 Respiratory Rate 20 21 H Blood Pressure 161/55 H Pulse Oximetry 97 01/28/20 16:11 01/28/20 20:00 01/28/20 20:38 Temperature 37.9 C H Pulse Rate 76 82 83 Respiratory Rate 20 16 Blood Pressure 169/70 H Pulse Oximetry 96 01/28/20 20:48 01/28/20 20:54 01/29/20 00:00 Temperature 37.3 C Pulse Rate 83 84 74 Respiratory Rate 16 16 20 Blood Pressure 149/46 H Pulse Oximetry 94 92 01/29/20 01:45 01/29/20 01:47 01/29/20 01:55 Temperature Pulse Rate 76 77 74 Respiratory Rate 13 13 13 Blood Pressure Pulse Oximetry 95 01/29/20 04:00 01/29/20 08:14 01/29/20 08:15 Temperature 36.9 C Pulse Rate 81 86 86 Respiratory Rate 20 Blood Pressure 152/62 H Pulse Oximetry 97 01/29/20 08:33 01/29/20 08:47 01/29/20 09:10 Temperature 37.3 C Pulse Rate 74 77 82 Respiratory Rate 18 18 22 H Blood Pressure 148/90 H Pulse Oximetry 93 95 01/29/20 09:15 01/29/20 09:27 01/29/20 09:30 Temperature 36.8 C Pulse Rate 78 78 70 Respiratory Rate 22 H Blood Pressure 161/70 H 161/70 H 147/64 H Pulse Oximetry 01/29/20 09:45 01/29/20 10:00 01/29/20 10:15 Temperature Pulse Rate 72 69 61 Respiratory Rate Blood Pressure 168/78 H 175/80 H 180/81 H Pulse Oximetry 01/29/20 10:30 01/29/20 10:45 01/29/20 11:00 Temperature Pulse Rate 73 66 66 Respiratory Rate Blood Pressure 201/89 H 181/81 H 173/77 H Pulse Oximetry 01/29/20 11:15 01/29/20 11:30 01/29/20 11:45 Temperature Pulse Rate 66 69 64 Respiratory Rate Blood Pressure 176/79 H 171/77 H 182/75 H Pulse Oximetry 01/29/20 12:00 01/29/20 12:15 01/29/20 12:27 Temperature Pulse Rate 67 67 66 Respiratory Rate Blood Pressure 185/81 H 192/71 H 178/78 H Pulse Oximetry 01/29/20 12:35 Temperature 36.7 C Pulse Rate 69 Respiratory Rate 20 Blood Pressure 139/60 Pulse Oximetry Intake/Output Intake/Output: Intake & Output 01/26/20 01/27/20 01/28/20 01/29/20 23:59 23:59 23:59 23:59 Intake Total 1730 1710 910 480 Output Total 3350 700 3700 3400 Balance -1620 1010 -7470 -2920 Meds/Results Medications: Active Medications Generic Name Dose Route Start Last Admin Trade Name Freq PRN Reason Stop Dose Admin Amiodarone HCl 200 mg 01/22/20 09:00 01/29/20 08:15 Pacerone PO 200 mg DAILY LUDWIG Administration Dextrose 12.5 gm 01/21/20 22:20 Dextrose 50% Syringe IV PUSH PRN PRN Hypoglycemia Protocol Dornase Pablo 2.5 mg 01/24/20 14:00 01/29/20 08:33 Pulmozyme INHALATION 2.5 mg Q12HRT LUDWIG Administration Fluticasone Propionate 2 spray 01/21/20 21:00 01/28/20 20:16 Flonase 0.05% Nasal [place] NASAL 2 spray HS LUDWIG Administration Gabapentin 200 mg 01/21/20 22:35 01/29/20 13:20 Neurontin PO 200 mg TID LUDWIG Administration Glucagon 1 mg 01/21/20 22:20 Glucagon For Inj IM PRN PRN Hypoglycemia Protocol Glucose 15 gm 01/21/20 22:20 Glutose 15 PO PRN PRN Hypoglycemia Protocol Albumin Human 50 mls @ 999 mls/hr 01/21/20 10:41 Albutein IVPB 02/20/20 10:42
[2020-01-29 16:27] LABS: Glucose Point of Care 142 (65-105)
[2020-01-29] MEDS: LOSARTAN POTASSIUM 50 MG TABLET PO (21:09)
[2020-01-29] MEDS: FLUTICASONE PROPIONATE 0.05% NA SPR 16 GM BTL (*BKC) 2 SPRAY NASAL (21:09)
[2020-01-29 21:18] LABS: Glucose Point of Care 207 (65-105)
[2020-01-29] MEDS: DOCUSATE SODIUM 100 MG CAPSULE PO (21:25)
[2020-01-30] VITALS (35 sets, daily range): BP systolic 115–187; BP diastolic 43–87; PULSE 56–79; RESP 14–26; TEMP 36.3–37.2; O2SAT 94–100
[2020-01-30 06:05] LABS: Basophils Percent Auto 0.3 % (0.2-1.2); Eosinophils Absolute Auto 0.1 K/mm3 (0-0.3); Eosinophils Percent Auto 0.4 % (0-4.4); Hematocrit 29.1 % (42.0-52.0); Hemoglobin 9.7 g/dL (14.0-18.0); Immature Granulocyte Absolute 0.12 K/mm3 (0.00-0.031); Immature Granulocyte Percent A 0.8 % (0-0.5); Lymphocytes Absolute Auto 1.76 K/mm3 (0.9-3.2); Lymphocytes Percent Auto 11.8 % (18.3-44.2); Mean Corpuscular HGB Conc 33.3 g/dl (32-36); Mean Corpuscular Hemoglobin 34.3 pg (26-34); Mean Corpuscular Volume 102.8 fl (80-100); Mean Platelet Volume 9.7 fl (7.4-10.4); Monocytes Absolute Auto 2.1 K/mm3 (0.1-0.6); Monocytes Percent Auto 14.3 % (2.6-8.5); Neutrophils Absolute Auto 10.8 K/mm3 (1.3-6.7); Neutrophils Percent Auto 72.4 % (45.5-73.1); Platelet Count Result 368 k/mm3 (150-375); Red Blood Count 2.83 M/mm3 (4.6-6.20); White Blood Count 14.9 K/mm3 (4.5-10.0)
[2020-01-30 06:08] LABS: INR 4.3; Prothrombin Time 40.4 Seconds (11.1-14.7)
[2020-01-30 06:19] LABS: Alanine Aminotransferase 11 U/L (4-50); Albumin Level 3.3 g/dL (3.5-5.1); Alkaline Phosphatase 71 U/L (38-126); Anion Gap 12 mmol/L (8-16); Aspartate Amino Transferase 13 U/L (17-59); Bilirubin,Total 0.3 mg/dL (0.2-1.3); Blood Urea Nitrogen 43 mg/dL (9-20); Calcium 8.7 mg/dL (8.4-10.2); Carbon Dioxide 28 mmol/L (22-30); Chloride 90 mmol/L (98-107); Estimated CRCL calculation 12 ml/min; Estimated Glomerular Filt Rate 7; Glucose 172 mg/dL (75-110); Magnesium 2.2 mg/dL (1.6-2.3); Potassium 5.1 mmol/L (3.4-5.0); Sodium 130 mmol/L (137-145)
[2020-01-30 07:43] LABS: Glucose Point of Care 174 (65-105)
--- NOTE | 2020-01-30 08:40 | PC.NURSE ---
Patient c/o dizziness when standing. States he had a productive cough of a large amount of bloody sputum earlier this morning. Denies shortness of breath but states I just don't feel well. Vital signs obtained - HR 64 and regular, RR 16, B/P 140/50 manually. Patient c/o slight left sided chest pain on inspiration. Also c/o constipation and states his bowels haven't moved in 3 days. Abdomen noted to be round and distended. Hypoactive bowel sounds noted. Called Nandini MALHOTRA and notified her of all of the above. Metoprolol held at this time - per Nandini's instructions - until patient is seen by cardiology later today. Will discuss further with them on rounds.
[2020-01-30] MEDS: predniSONE 20 MG TABLET 40 MG PO (09:30)
[2020-01-30] MEDS: AMIODARONE HCL 200 MG TABLET PO (09:31)
[2020-01-30] MEDS: MAGNESIUM OXIDE 200 MG TABLET PO ×2 (09:32→20:36)
[2020-01-30] MEDS: GABAPENTIN 100 MG CAPSULE 200 MG PO ×3 (09:32→16:45)
[2020-01-30] MEDS: DORNASE ALFA INH SOLN 1 MG/ML 2.5 ML AMP 2.5 MG INHALATION ×2 (10:02→20:47)
[2020-01-30 11:41] LABS: Glucose Point of Care 245 (65-105)
--- NOTE | 2020-01-30 11:53 | PM.IMPN ---
Progress Note: A&P Assessment and Plan (1) Acute dyspnea: Code(s): R06.00 - Dyspnea, unspecified Status: Acute Assessment and Plan: ----- during dialysis 01/27 the patient had acute shortness of breath with chest pain. Today the patient states he is better. He is mildly wheezy on the right lung and his oxygen saturations have been okay. Work up thus far revealed pulmonary vascular congestion, subpleural edema, and pulmonary edema. They got 3000 mL off during dialysis yesterday, 3700 the day before, and he is going again today. He does have a PE (he was off his warfarin for a dental procedure) and was treated for PNA. EKG showed boarderline ST-T wave abnomralities in the lateral leads and tops were originally negative but have creeped up but I don't suspect this is anything to worry about. Because the patient had CP, AMAYA and new PE an echo was done which showed hypokinesis of the apical septum and inferoapical beyer with grade 3 diastolic dysfunction. I pulled the echo from 11/01/18 which does not show wall abnormalities but did show grade 2 diastolic dysfunction. I spoke with Juana who pulled echos from further back that did show the wall motion abnormalities so this all may be chronic. 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 During this time he states he coded twice and was trached and pegged. He still follows Dr. Calderon for routine cardiac care. He is not on aspirin but only on coumadin. I will ask cardiology their thoughts. I appreciate their recommendations. (2) Acute on chronic respiratory failure with hypoxia: Code(s): J96.21 - Acute and chronic respiratory failure with hypoxia Status: Acute Assessment and Plan: ----- see above. Pt on home 2L and doing better. He is actually not wearing it today on exam and says he only wears it when he needs to. Continue pulling fluid off with dialysis. He just finished doxycycline and is on vancomycin. See above. COVID negative 01/20 (3) Pneumonia: Qualifiers: Pneumonia type: due to unspecified organism Laterality: bilateral Lung location: upper lobe of lung Qualified Code(s): J18.9 - Pneumonia, unspecified organism Code(s): J18.9 - Pneumonia, unspecified organism Status: Acute Assessment and Plan: -----Completed a course of IV doxycycline and Vanc for suspected pneumonia. Sputum culture without any pathogens identified. Pneumococcal urine antigen and legionella negative. See above plan of care. Continue O2, pulmozyme and IS. (4) Pulmonary embolism: Qualifiers: Acute cor pulmonale presence: without acute cor pulmonale Chronicity: acute Pulmonary embolism type: unspecified Qualified Code(s): I26.99 - Other pulmonary embolism without acute cor pulmonale Code(s): I26.99 - Other pulmonary embolism without acute cor pulmonale Status: Acute Assessment and Plan: -----CTA chest shows right lower lobe and right upper lobe pulmonary emboli with low clot burden. INR was subtherapeutic on long-term warfarin had been on hold secondary to a dental surgery. INR supratherapeutic today, will hold. Recheck INR tomorrow (5) Bacteremia due to coagulase-negative Staphylococcus: Code(s): R78.81 - Bacteremia; B95.7 - Other staphylococcus as the cause of diseases classified elsewhere Status: Acute Assessment and Plan: -----Blood cultures from 01/20 grew coagulase negative Staph likely d/t abrasion on his left hand but pt also had dental sx 2 weeks prior. UE fistula does not appear infected. Repeat blood cultures 01/21 are have no growth to date. Vanc completed. (6) Subtherapeutic international normalized ratio (INR): Code(s): R79.1 - Abnormal coagulation profile Status: Acute Assessment and Plan: ----Resolved. now supratherapeutic. I spoke with the pt who states he is usually on 3mg a day and was
[2020-01-30] MEDS: INSULIN ASPART (*BKC) 100 UNITS/ML SUB-Q ×2 (11:59→16:43)
--- NOTE | 2020-01-30 12:35 | PM.CNCAR ---
Assessment and Plan Additional Plan 69-year-old man with above history of coronary disease urgent bypass grafting following acute myocardial infarction several years ago. He also has end-stage disease and is dependent on hemodialysis. He came in at [facility] 9 days ago with symptoms of chest which probably were concurrent with the development of pulmonary embolism that was documented on admission. I do not see any other evidence of an acute coronary problem. The wall motion abnormalities that are noted on his echocardiogram are not new. It is interesting this was not recognized on the last echocardiogram that was done but on several exams/scans prior to this the findings were quite similar. I therefore do not believe there is reason to be concerned that he has had a new or recent infarction since this infarction was demonstrated prior to his CABG. The patient does not have any other obvious cardiac symptoms. He is on appropriate medication for his ischemic LV dysfunction in the form of metoprolol and losartan. There are no new cardiac recommendations to make in my opinion. Upon discharge he will follow up with his established fire prevention captain at [facility]. Fabián Condon MD [facility] History of Present Illness History of Present Illness Consult date/time: Date of service:01/30/20 12:35 Reason For Visit: Shortness of breath. Narrative: This is a 69-year-old man who has a history of coronary artery disease. I am seeing him at the request of the hospitalist because of abnormal findings on echocardiogram that was done about 7 days ago when he came into the hospital. The patient is under the care of a fire prevention captain at [facility]. I am not familiar with this case prior to this encounter. He was found to have coronary disease several years really presented with an acute myocardial infarction and was taken emergently to [facility] for surgical revascularization. According to the records he had myocardial infarction at that time and suffered at least 2 or 3 VFib arrest prior to being revascularized. He did remarkably well after all this but he did gone to unfortunately developed chronic end-stage kidney disease and has been on hemodialysis as well. He does not describe any new recent cardiac problems. He was brought to [facility] 9 days ago from dialysis when he became symptomatic with some chest pain during dialysis. His evaluation here at [place] demonstrated some evidence of modestly decompensated heart failure but also evidence of a pulmonary embolism for which she has been appropriately anticoagulated. An echocardiogram was done which demonstrates evidence of a anteroapical wall motion abnormality. Echocardiogram done in 2019 and did not describe this abnormality but 2 echocardiograms before that did. It is therefore evident that this is not a new finding. The patient's ejection fraction has been somewhat variable on these studies ranging between 40% to 55%. He does have mild sclerosis of the aortic valve and no other significant abnormalities. Regarding his heart disease he is taking amiodarone for history of atrial fibrillation and is currently maintaining sinus rhythm. He is also taking losartan and atorvastatin. Patient also takes long-acting metoprolol. He denies any recent symptoms of ischemic type chest pain he is not experiencing orthopnea PND or edema. When I came in the room to see him earlier today was in dialysis now he is back in his room seated in the chair appears to be quite comfortable and is watching television. Review of Systems Constitutional: Constitutional: Reports no additional constitutional complaints Eyes: Eyes: Reports no additional eye complaints ENT: Reports system reviewed and no additional complaints, except as documented Cardiovascular: Cardiovascular: Reports as per HPI Respiratory: Respiratory: Reports as per HPI and Reports hemoptysis Gastrointestinal:
[2020-01-30] MEDS: SENNOSIDES 8.6 MG TABLET PO (12:42)
[2020-01-30] MEDS: METOPROLOL SUCCINATE EXT REL 50 MG TABCR PO (13:03)
--- NOTE | 2020-01-30 13:30 | PC.NURSE ---
Dr. Condon here to see patient. Aware of Metoprolol. No new orders. Metoprolol given.
--- NOTE | 2020-01-30 14:57 | P.PNNP_ITS ---
Progress Note: A&P Assessment and Plan (1) End stage renal disease: Code(s): N18.6 - End stage renal disease Status: Chronic Assessment and Plan: * HD tomorrow and continue M/W/ schedule * follow electrolytes, volume status, and clearance (2) Bacteremia due to coagulase-negative Staphylococcus: Code(s): R78.81 - Bacteremia; B95.7 - Other staphylococcus as the cause of diseases classified elsewhere Status: Acute Assessment and Plan: * admission cultures noted * on IV vancomycin * repeat blood culture negative * source?? * vancomycin can be dosed with dialysis on discharge if needed (3) Respiratory failure: Code(s): J96.90 - Respiratory failure, unspecified, unspecified whether with hypoxia or hypercapnia Status: Acute Assessment and Plan: * clinically better, however, episode of shortness of breath noted earlier today * suspect due to a combination of #3, pneumonia(?), chronic lung disease and pulmonary emboli * continue current measures (supplemental oxygen, antibiotics, nebs...etc) * steroids added today and re-checking Echo * plan dry ultrafiltration today and possibly Sunday for more fluid removal * follow respiratory status (4) Diastolic CHF: Qualifiers: Heart failure chronicity: chronic Qualified Code(s): I50.32 - Chronic diastolic (congestive) heart failure Code(s): I50.30 - Unspecified diastolic (congestive) heart failure Status: Chronic Assessment and Plan: * some exacerbation noted by admission findings * fluid status better s/p aggressive ultrafiltration with HD * plan dry ultrafiltration tomorrow for more fluid removal * continue current therapy (5) Essential hypertension: Code(s): I10 - Essential (primary) hypertension Status: Chronic Assessment and Plan: * reasonable control but fluctuates * follow trend of hemodynamics with current medications * would not be opposed to titration of losartan or metoprolol if needed (6) Chronic anemia: Code(s): D64.9 - Anemia, unspecified Status: Chronic Assessment and Plan: * due to ESRD * follow H/H * Epogen with HD (7) Hyponatremia: Code(s): E87.1 - Hypo-osmolality and hyponatremia Status: Acute Assessment and Plan: * due in part to renal failure but D5W carrier fluid with heparin gtt likely more to blame * should compensate/correct with dialysis * on fluid restriction as well (8) Pulmonary embolism: Qualifiers: Acute cor pulmonale presence: without acute cor pulmonale Chronicity: acute Pulmonary embolism type: unspecified Qualified Code(s): I26.99 - Other pulmonary embolism without acute cor pulmonale Code(s): I26.99 - Other pulmonary embolism without acute cor pulmonale Status: Acute Assessment and Plan: * as noted by CT of chest * on coumadin * follow INR Will continue to follow. Subjective Date/time seen: 01/30/20 14:58 Tolerated dry ultrafiltration yesterday without any issues or problems; due for dialysis today (probably later this evening); states he thinks his breathing is better but does report cough is still present with occasional blood streaked sputum (although he is on coumadin); only other complaint is that of constipation. Exam Narrative: Exam Narrative: General: WD/WN male in NAD Heart: normal S1 and S2; no rub Lungs: some wheezes at the bases and coarse Abdomen: soft, nontender, nondistended, positive bowel sounds Ext
--- NOTE | 2020-01-30 14:57 | PM.PNNEP ---
Progress Note: A&P Assessment and Plan (1) End stage renal disease: Code(s): N18.6 - End stage renal disease Status: Chronic Assessment and Plan: HD tomorrow and continue M/W/F schedule follow electrolytes, volume status, and clearance (2) Bacteremia due to coagulase-negative Staphylococcus: Code(s): R78.81 - Bacteremia; B95.7 - Other staphylococcus as the cause of diseases classified elsewhere Status: Acute Assessment and Plan: admission cultures noted on IV vancomycin repeat blood culture negative source?? vancomycin can be dosed with dialysis on discharge if needed (3) Respiratory failure: Code(s): J96.90 - Respiratory failure, unspecified, unspecified whether with hypoxia or hypercapnia Status: Acute Assessment and Plan: clinically better, however, episode of shortness of breath noted earlier today suspect due to a combination of #3, pneumonia(?), chronic lung disease and pulmonary emboli continue current measures (supplemental oxygen, antibiotics, nebs...etc) steroids added today and re-checking Echo plan dry ultrafiltration today and possibly Sunday for more fluid removal follow respiratory status (4) Diastolic CHF: Qualifiers: Heart failure chronicity: chronic Qualified Code(s): I50.32 - Chronic diastolic (congestive) heart failure Code(s): I50.30 - Unspecified diastolic (congestive) heart failure Status: Chronic Assessment and Plan: some exacerbation noted by admission findings fluid status better s/p aggressive ultrafiltration with HD plan dry ultrafiltration tomorrow for more fluid removal continue current therapy (5) Essential hypertension: Code(s): I10 - Essential (primary) hypertension Status: Chronic Assessment and Plan: reasonable control but fluctuates follow trend of hemodynamics with current medications would not be opposed to titration of losartan or metoprolol if needed (6) Chronic anemia: Code(s): D64.9 - Anemia, unspecified Status: Chronic Assessment and Plan: due to ESRD follow H/H Epogen with HD (7) Hyponatremia: Code(s): E87.1 - Hypo-osmolality and hyponatremia Status: Acute Assessment and Plan: due in part to renal failure but D5W carrier fluid with heparin gtt likely more to blame should compensate/correct with dialysis on fluid restriction as well (8) Pulmonary embolism: Qualifiers: Acute cor pulmonale presence: without acute cor pulmonale Chronicity: acute Pulmonary embolism type: unspecified Qualified Code(s): I26.99 - Other pulmonary embolism without acute cor pulmonale Code(s): I26.99 - Other pulmonary embolism without acute cor pulmonale Status: Acute Assessment and Plan: as noted by CT of chest on coumadin follow INR Will continue to follow. Subjective Date/time seen: 01/30/20 14:58 Tolerated dry ultrafiltration yesterday without any issues or problems; due for dialysis today (probably later this evening); states he thinks his breathing is better but does report cough is still present with occasional blood streaked sputum (although he is on coumadin); only other complaint is that of constipation. Exam Narrative: Exam Narrative: General: WD/WN male in NAD Heart: normal S1 and S2; no rub Lungs: some wheezes at the bases and coarse Abdomen: soft, nontender, nondistended, positive bowel sounds Extremities: no cyanosis or clubbing; no edema Skin: no rash or nodules Objective Data Vital Signs Vital Signs: Vital Signs Temp Pulse Resp BP Pulse Ox 01/30/20 14:08 63 18 01/30/20 13:57 63 18 01/30/20 13:03 64 01/30/20 10:13 60 18 01/30/20 10:05 62 18 97 01/30/20 10:00 64 131/52 L 01/30/20 09:58 58 L 131/51 L 01/30/20 09:38 140/50 L 01/30/20 09:31 64 01/30/20 08:00 68 17 130/43 L 94 /
[2020-01-30 16:20] LABS: Glucose Point of Care 293 (65-105)
[2020-01-30] MEDS: FLUTICASONE PROPIONATE 0.05% NA SPR 16 GM BTL (*BKC) 2 SPRAY NASAL (20:37)
[2020-01-30] MEDS: traMADol HCL (*CRX) 50 MG TABLET PO (20:37)
[2020-01-30 21:32] LABS: Glucose Point of Care 255 (65-105)
[2020-01-30] MEDS: EPOETIN ALFA-EPBX 10,000 UNITS/ML VIAL 10000 UNITS IV PUSH (23:13)
[2020-01-30] MEDS: SODIUM CHLORIDE 0.9% IV 1,000 ML 999 ML IV CONT (23:14)
[2020-01-31] VITALS (16 sets, daily range): BP systolic 124–165; BP diastolic 54–65; PULSE 64–94; RESP 16–20; TEMP 36.5–37.2; O2SAT 85–100
[2020-01-31 05:58] LABS: Hemoglobin 10.1 g/dL (14.0-18.0); Mean Corpuscular HGB Conc 33.7 g/dl (32-36); Mean Corpuscular Hemoglobin 34.4 pg (26-34); Mean Platelet Volume 9.2 fl (7.4-10.4); Platelet Count Result 382 k/mm3 (150-375); Red Blood Count 2.94 M/mm3 (4.6-6.20); Red Cell Distribution Width 14.8 % (11.5-14.5); White Blood Count 15.1 K/mm3 (4.5-10.0)
[2020-01-31 06:18] LABS: Albumin Level 3.6 g/dL (3.5-5.1); Anion Gap 10 mmol/L (8-16); Blood Urea Nitrogen 28 mg/dL (9-20); Calcium 8.6 mg/dL (8.4-10.2); Carbon Dioxide 30 mmol/L (22-30); Chloride 93 mmol/L (98-107); Estimated CRCL calculation 15 ml/min; Estimated Glomerular Filt Rate 11; Glucose 210 mg/dL (75-110); Phosphorus 4.4 mg/dL (2.5-4.5); Potassium 4.5 mmol/L (3.4-5.0); Sodium 133 mmol/L (137-145)
[2020-01-31 07:57] LABS: Glucose Point of Care 157 (65-105)
[2020-01-31] MEDS: DORNASE ALFA INH SOLN 1 MG/ML 2.5 ML AMP 2.5 MG INHALATION (08:32)
[2020-01-31] MEDS: MAGNESIUM OXIDE 200 MG TABLET PO (09:00)
[2020-01-31] MEDS: GABAPENTIN 100 MG CAPSULE 200 MG PO ×2 (09:00→12:00)
[2020-01-31] MEDS: predniSONE 20 MG TABLET 40 MG PO (09:00)
[2020-01-31] MEDS: METOPROLOL SUCCINATE EXT REL 50 MG TABCR PO (09:00)
[2020-01-31] MEDS: AMIODARONE HCL 200 MG TABLET PO (09:00)
[2020-01-31] MEDS: SENNOSIDES 8.6 MG TABLET PO (09:01)
--- NOTE | 2020-01-31 10:27 | PM.DS ---
DS: Admitting Diagnosis Admitting Diagnosis Admitting Diagnosis: Shortness of breath. DS: Discharge Diagnosis Discharge Diagnosis (1) Acute dyspnea: Code(s): R06.00 - Dyspnea, unspecified Status: Acute Assessment and Plan: ----- during dialysis 01/27 the patient had acute shortness of breath with chest pain thought to be due to pulmonary edema and bronchospasm (pt was wheezy) which resolved with dialysis and steroid therapy. Work up revealed pulmonary vascular congestion, subpleural edema, and pulmonary edema. EKG showed boarderline ST-T wave abnomralities in the lateral leads and tops were originally negative but have creeped up but I don't suspect this is anything to worry about. Because the patient had CP, AMAYA and new PE an echo was done which showed hypokinesis of the apical septum and inferoapical beyer with grade 3 diastolic dysfunction. I pulled the echo from 11/01/18 which does not show wall abnormalities but did show grade 2 diastolic dysfunction. I spoke with Juana who pulled echos from further back that did show the wall motion abnormalities so this all may be chronic. Pt had a CABG march 2018 at [facility] and spent a lot of time in the hospital and rehab. During this time he states he coded twice and was trached and pegged. He still follows Dr. Calderon for routine cardiac care and plans to follow up with them. (2) Acute on chronic respiratory failure with hypoxia: Code(s): J96.21 - Acute and chronic respiratory failure with hypoxia Status: Acute Assessment and Plan: ----- see above. Pt on home 2L and doing better. He finished doxycycline and is on vancomycin. See above. COVID negative 01/20 (3) Pneumonia: Qualifiers: Laterality: bilateral Lung location: upper lobe of lung Pneumonia type: due to unspecified organism Qualified Code(s): J18.9 - Pneumonia, unspecified organism Code(s): J18.9 - Pneumonia, unspecified organism Status: Acute Assessment and Plan: -----Completed a course of IV doxycycline and Vanc for suspected pneumonia. Sputum culture without any pathogens identified. Pneumococcal urine antigen and legionella negative. See above plan of care. (4) Pulmonary embolism: Qualifiers: Acute cor pulmonale presence: without acute cor pulmonale Chronicity: acute Pulmonary embolism type: unspecified Qualified Code(s): I26.99 - Other pulmonary embolism without acute cor pulmonale Code(s): I26.99 - Other pulmonary embolism without acute cor pulmonale Status: Acute Assessment and Plan: -----CTA chest shows right lower lobe and right upper lobe pulmonary emboli with low clot burden. INR was subtherapeutic on long-term warfarin had been on hold secondary to a dental surgery. INR supratherapeutic today, will hold and restart warfarin on sunday. Recheck INR sunday outpt (5) Bacteremia due to coagulase-negative Staphylococcus: Code(s): R78.81 - Bacteremia; B95.7 - Other staphylococcus as the cause of diseases classified elsewhere Status: Acute Assessment and Plan: -----Blood cultures from 01/20 grew coagulase negative Staph likely d/t abrasion on his left hand but pt also had dental sx 2 weeks prior. UE fistula does not appear infected. Repeat blood cultures 01/21 are have no growth to date. Vanc completed. (6) Subtherapeutic international normalized ratio (INR): Code(s): R79.1 - Abnormal coagulation profile Status: Acute Assessment and Plan: ----Resolved. now supratherapeutic 3.0. I spoke with the pt who states he is usually on 3mg a day and was working with the coumadin clinic who was adjusting his dose. He claims he was on 9mg a day the days he doesn't take dialysis and 3mg a day on MWF. For now, pt is to continue warfarin sunday and take 4mg daily and get his INR rechecked on sunday (7) Paroxysmal atrial fibrillation: Code(s): I48.0 - Pa
--- NOTE | 2020-01-31 10:39 | HOMEO2EVAL ---
Home Oxygen Evaluation RC: Home Oxygen (O2) Evaluation Start: 01/31/20 10:07 Freq: ONCE Status: Active Protocol: RPE Activity Type Activity Date Activity User E-Sign Co-Sign Detail Recorded Client Recorded Date Recorded By Document 01/31/20 10:20 TK [email or web address] 01/31/20 10:38 TK Document 01/31/20 10:21 TK [email or web address] 01/31/20 10:38 TKH Document 01/31/20 10:32 TK [email or web address] 01/31/20 10:38 TKH 01/31/20 01/31/20 01/31/20 10:20 10:21 10:32 Home O2 Evaluation Test Phase Resting Exercise Resting Oxygen Delivery Room Air Nasal Cannula Oxygen Flow Rate (L/min) 2 Fraction of Inspired Oxygen (%) 21 Pulse Oximetry (90-100 %) 95 96 93 Pulse Rate (60-100 beats/min) 88 82 94 Activity Tolerance Good Good Rating of Perceived Dyspnea (PD) +3 Moderate Difficulty, But Can Continue Ambulation Distance (feet) 400 Home Oxygen Evaluation Comments Pt ambulated Pt rested on 2L 180 feet on NC for a while room air, SpO2 before pt decreased to 85 could settle %. O2 applied and not be SOB. at 1L NC, Spo2 Pt needs 2L NC slowly PRN and with increased to 88 activity. %. Pt ambulated another 100 ft , SpO2 decreased to 86 % O2 increased to 2L NC. Pt continued to ambulate another 120 ft. Treatment Charges O2 Evaluation
--- NOTE | 2020-01-31 11:17 | P.PNNP_ITS ---
Progress Note: A&P Assessment and Plan (1) End stage renal disease: Code(s): N18.6 - End stage renal disease Status: Chronic Assessment and Plan: * HD yesterday and continue M// schedule * follow electrolytes, volume status, and clearance (2) Bacteremia due to coagulase-negative Staphylococcus: Code(s): R78.81 - Bacteremia; B95.7 - Other staphylococcus as the cause of diseases classified elsewhere Status: Acute Assessment and Plan: * admission cultures noted * completed course of IV vancomycin * repeat blood culture negative * source?? (3) Respiratory failure: Code(s): J96.90 - Respiratory failure, unspecified, unspecified whether with hypoxia or hypercapnia Status: Acute Assessment and Plan: * clinically better * suspect due to a combination of #3, pneumonia(?), chronic lung disease and pulmonary emboli * responded to current measures (supplemental oxygen, antibiotics, nebs, steroids...etc) * follow respiratory status (4) Diastolic CHF: Qualifiers: Heart failure chronicity: chronic Qualified Code(s): I50.32 - Chronic diastolic (congestive) heart failure Code(s): I50.30 - Unspecified diastolic (congestive) heart failure Status: Chronic Assessment and Plan: * some exacerbation noted by admission findings * fluid status better s/p aggressive ultrafiltration with HD * plan dry ultrafiltration tomorrow for more fluid removal * continue current therapy (5) Essential hypertension: Code(s): I10 - Essential (primary) hypertension Status: Chronic Assessment and Plan: * reasonable control but fluctuates * follow trend of hemodynamics with current medications * would not be opposed to titration of losartan or metoprolol if needed (6) Chronic anemia: Code(s): D64.9 - Anemia, unspecified Status: Chronic Assessment and Plan: * due to ESRD * follow H/H * Epogen with HD (7) Hyponatremia: Code(s): E87.1 - Hypo-osmolality and hyponatremia Status: Acute Assessment and Plan: * due in part to renal failure but D5W carrier fluid with heparin gtt likely more to blame * should compensate/correct with dialysis * on fluid restriction as well (8) Pulmonary embolism: Qualifiers: Acute cor pulmonale presence: without acute cor pulmonale Chronicity: acute Pulmonary embolism type: unspecified Qualified Code(s): I26.99 - Other pulmonary embolism without acute cor pulmonale Code(s): I26.99 - Other pulmonary embolism without acute cor pulmonale Status: Acute Assessment and Plan: * as noted by CT of chest * on coumadin * follow INR Will continue to follow - not opposed to discharge from renal perspective if otherwise medically stable. Subjective Date/time seen: 01/31/20 11:17 Tolerated dialysis yesterday evening without any issues of problems; breathing seems to be doing significantly better in general in comparison to admission; no apparent distress voiced at this time; no events overnight or earlier this AM to report. Exam Narrative: Exam Narrative: General: WD/WN male in NAD Heart: normal S1 and S2; no rub Lungs: clear anteriorly Abdomen: soft, nontender, nondistended, positive bowel sounds Extremities: no cyanosis or clubbing; no edema Skin: warm and dry Objective Data Vital Signs Vital Signs: Vital Signs Temp Pulse Resp B
--- NOTE | 2020-01-31 11:17 | PM.PNNEP ---
Progress Note: A&P Assessment and Plan (1) End stage renal disease: Code(s): N18.6 - End stage renal disease Status: Chronic Assessment and Plan: HD yesterday and continue M/W/ schedule follow electrolytes, volume status, and clearance (2) Bacteremia due to coagulase-negative Staphylococcus: Code(s): R78.81 - Bacteremia; B95.7 - Other staphylococcus as the cause of diseases classified elsewhere Status: Acute Assessment and Plan: admission cultures noted completed course of IV vancomycin repeat blood culture negative source?? (3) Respiratory failure: Code(s): J96.90 - Respiratory failure, unspecified, unspecified whether with hypoxia or hypercapnia Status: Acute Assessment and Plan: clinically better suspect due to a combination of #3, pneumonia(?), chronic lung disease and pulmonary emboli responded to current measures (supplemental oxygen, antibiotics, nebs, steroids...etc) follow respiratory status (4) Diastolic CHF: Qualifiers: Heart failure chronicity: chronic Qualified Code(s): I50.32 - Chronic diastolic (congestive) heart failure Code(s): I50.30 - Unspecified diastolic (congestive) heart failure Status: Chronic Assessment and Plan: some exacerbation noted by admission findings fluid status better s/p aggressive ultrafiltration with HD plan dry ultrafiltration tomorrow for more fluid removal continue current therapy (5) Essential hypertension: Code(s): I10 - Essential (primary) hypertension Status: Chronic Assessment and Plan: reasonable control but fluctuates follow trend of hemodynamics with current medications would not be opposed to titration of losartan or metoprolol if needed (6) Chronic anemia: Code(s): D64.9 - Anemia, unspecified Status: Chronic Assessment and Plan: due to ESRD follow H/H Epogen with HD (7) Hyponatremia: Code(s): E87.1 - Hypo-osmolality and hyponatremia Status: Acute Assessment and Plan: due in part to renal failure but D5W carrier fluid with heparin gtt likely more to blame should compensate/correct with dialysis on fluid restriction as well (8) Pulmonary embolism: Qualifiers: Acute cor pulmonale presence: without acute cor pulmonale Chronicity: acute Pulmonary embolism type: unspecified Qualified Code(s): I26.99 - Other pulmonary embolism without acute cor pulmonale Code(s): I26.99 - Other pulmonary embolism without acute cor pulmonale Status: Acute Assessment and Plan: as noted by CT of chest on coumadin follow INR Will continue to follow - not opposed to discharge from renal perspective if otherwise medically stable. Subjective Date/time seen: 01/31/20 11:17 Tolerated dialysis yesterday evening without any issues of problems; breathing seems to be doing significantly better in general in comparison to admission; no apparent distress voiced at this time; no events overnight or earlier this AM to report. Exam Narrative: Exam Narrative: General: WD/WN male in NAD Heart: normal S1 and S2; no rub Lungs: clear anteriorly Abdomen: soft, nontender, nondistended, positive bowel sounds Extremities: no cyanosis or clubbing; no edema Skin: warm and dry Objective Data Vital Signs Vital Signs: Vital Signs Temp Pulse Resp BP Pulse Ox 01/31/20 10:32 94 93 01/31/20 10:21 82 96 01/31/20 10:20 88 95 01/31/20 10:00 37.2 C 73 18 165/56 H 100 01/31/20 09:00 64 01/31/20 08:30 72 01/31/20 04:00 36.8 C 64 20 124/54 L 97 01/31/20 02:17 74 20 93 01/31/20 02:12 71 18 01/31/20 00:20 36.5 C 69 16 146/60 H 01/31/20 00:07 69 145/65 H 01/31/20 00:00 37.2 C 74 16 149/63 H 93 01/30/20 23:45 70 147/63 H 01/30/20 23:30 68 139/67 01/30/20 23:15 68 150/70 H 01/30/20 23:00 69 142/67
[2020-01-31 11:37] LABS: Glucose Point of Care 241 (65-105)
[2020-01-31] MEDS: INSULIN ASPART (*BKC) 100 UNITS/ML SUB-Q (11:50)
== END 2020-01-31 12:50 | disposition home or self-care (01) | DRG 291 ==
LOC: ANHED 11:36 → ANHICU 16:31 → ANHIMU 01-22 07:03 → ANH2MED 01-27 07:15 → ANHICU 02-02 14:16 → ANHIMU 02-02 14:16
PROVIDERS: Family Medicine; Internal Medicine Nephrology; Nurse Practitioner; Physician Assistant; Admitting Provider Internal Medicine; Emergency Provider Emergency Medicine; PCP Family Medicine; Visit Provider Physician Assistant
DX: I13.2 Hypertensive heart and chronic kidney disease with heart failure and with stage 5 chronic kidney disease, or end stage renal disease (principal); I26.99 Other pulmonary embolism without acute cor pulmonale; N18.6 End stage renal disease; J18.9 Pneumonia, unspecified organism; J96.21 Acute and chronic respiratory failure with hypoxia; I50.33 Acute on chronic diastolic (congestive) heart failure; R78.81 Bacteremia; E87.1 Hypo-osmolality and hyponatremia; B95.7 Other staphylococcus as the cause of diseases classified elsewhere; D63.1 Anemia in chronic kidney disease; Z99.81 Dependence on supplemental oxygen; Z20.828 Contact with and (suspected) exposure to other viral communicable diseases; Z23 Encounter for immunization; Z99.2 Dependence on renal dialysis; E87.8 Other disorders of electrolyte and fluid balance, not elsewhere classified; R79.89 Other specified abnormal findings of blood chemistry; I48.0 Paroxysmal atrial fibrillation; R79.1 Abnormal coagulation profile; G47.33 Obstructive sleep apnea (adult) (pediatric); E78.5 Hyperlipidemia, unspecified; I71.4 Abdominal aortic aneurysm, without rupture; I25.5 Ischemic cardiomyopathy; I25.10 Atherosclerotic heart disease of native coronary artery without angina pectoris; I25.2 Old myocardial infarction; Z79.01 Long term (current) use of anticoagulants; Z79.899 Other long term (current) drug therapy; Z86.39 Personal history of other endocrine, nutritional and metabolic disease; Z86.73 Personal history of transient ischemic attack (TIA), and cerebral infarction without residual deficits; Z87.891 Personal history of nicotine dependence; Z88.0 Allergy status to penicillin; Z95.1 Presence of aortocoronary bypass graft; Z99.89 Dependence on other enabling machines and devices
CPT/HCPCS: 36415; 36600; 71045; 71046; 71275; 74174; 80048; 80053; 80069; 80076; 80202; 81001; 82375; 82553; 82728; 82805; 83036; 83050; 83605; 83615; 83735; 83880; 84100; 84443; 84484; 85025; 85027; 85380; 85610; 85730; 86140; 87040; 87070; 87077; 87186; 87205; 87340; 87449; 87635; 87899; 90471; 90653; 93005; 93306; 93970; 94002; 94618; 94640; 96374; 97161; 97165; 99291; A9270; C9803; G0008; G0257; J0696; J1100; J1644; J1815; J1940; J2405; J2920; J3370; J7030; J7512; Q4081; Q5106; Q9967; U0003

== ENCOUNTER 2020-03-25 20:49 | Inpatient (IN) | payer MEDICARE, SELFPAY ==
--- NOTE | ~2020-03-25 | XR_ITS ---
XR chest 1V portable DATE: 03/25/2020 22:03 INDICATION: Shortness of breath. History of congestive heart. Pulmonary embolism TECHNIQUE: Portable AP chest on 03/25/2020 at 2150 hours COMPARISON: 01/31/2020 portable AP chest FINDINGS: Status post sternotomy. There is pulmonary vascular congestion and redistribution, prominence of the minor fissure and eviden ce of mild pleural effusions. There are bilateral primarily central and particularly lower lung zone infiltrates which may be secondary to pulmonary edema. Pneumonia and aspiration are not excluded. Diffuse osteopenia. IMPRESSION: Congestive heart failure and probable pulmonary edema; superimposed pneumonia or aspirati on are not excluded Reviewed, dictated and finalized at location A. RACT LOADER IMPRESSION: Congestive heart failure and probable pulmonary edema; superimposed pneumonia or aspiration are not excluded
--- NOTE | ~2020-03-25 | CT_ITS ---
EXAMINATION: CTA chest PE protocol DATE: 03/25/2020 22:58 INDICATION: Worsening shortness of breath. Recent pulmonary embolism. TECHNIQUE: Computed tomography angiography (CTA) of the chest was performed with 100 mL Omnipaque-350 intravenous contrast timed to evaluate the pulmonary arteries. Coronal maximum intensity projection 3D-reconstructions were created by the technologist. Automated exposure control and iterative reconst ruction technique were employed. Exam dose: 1005.79 mGy-cm total exam DLP. COMPARISON: 01/21/2020 CT pulmonary images 03/25/2020 portable AP chest FINDINGS: There is diagnostic contrast enhancement of the pulmonary arteries again noted is embolism within the right upper lobe and interlobar right pulmonary artery, present on 01/21/2020. No interval new pulmonary embolism is identified. There is extensive thoracic and great vessel and coronary artery atherosclerotic calcification. Status post sternotomy. There are moderately large bilateral pleural effusions. There is associated prominent bilateral lower lobe compressive atelectasis. There are bilateral groundglass pulmonary infiltrates, likely secondary to pulmonary edema. IMPRESSION: Persistent mild right upper lobe and interlobar pulmonary embolism, present on 01/21/2020 Larger bilateral pleural effusions and increased pulmonary edema since 01/21/2020 Reviewed, dictated and finalized at [facility]. Reviewed, dictated and finalized at location A. ER CULLER IMPRESSION: Persistent mild right upper lobe and interlobar pulmonary embolism , present on 01/21/2020 Larger bilateral pleural effusions and increased pulmonary edema since 0
--- NOTE | ~2020-03-25 | XR_ITS ---
EXAMINATION: XR chest 2V DATE: 03/29/2020 17:15 INDICATION: Shortness of breath TECHNIQUE: PA and lateral views of the chest were obtained. COMPARISON: Chest radiograph and CT dated 03/25/2020 FINDINGS: Opacities at the bilateral lower lung zones with blunting at the costophrenic angles consistent with decreased small left pleural effusions and associated basilar atelectasis and/or pneumonia. Marked in terval improvement in prior pulmonary edema which is essentially resolved. Cardiomegaly. Median arauz otomy wires and mediastinal surgical clips are seen, likely from prior coronary artery bypass graftin g. IMPRESSION: 1. Decrease in now small bilateral pleural effusions and associated basilar atelectasis and/or pneumo stoney. 2. Cardiomegaly with resolution of prior pulmonary edema. Reviewed, dictated and finalized at location A. SS ASSOC IMPRESSION: 1. Decrease in now small bilateral pleural effusions and associated basilar ate lectasis and/or pneumonia. 2. Cardiomegaly with resolution of prior pulmonary edema.
[2020-03-25 20:51] VITALS: BP 211/145; PULSE 96; RESP 26; TEMP 35.7; O2SAT 100
--- NOTE | 2020-03-25 20:51 | ECG_ITS ---
Measurements Intervals [place] Rate: 96 P: -43 CT: 132 QRS: 60 QRSD: 110 T: -3 QT: 373 QTc: 472 Interpretive Statements SINUS RHYTHM INCOMPLETE LEFT BUNDLE BRANCH BLOCK DELAYED PRECORDIAL R/S TRANSITION NONSPECIFIC ST & T-WAVE ABNORMALITY- INF/LAT LEADS BASELINE ARTIFACT- I, II, III, AVR, AVL, AVF, V1-V6 ABNORMAL ECG Electronically Signed On 03-26-2020 8:04:32 PHYSICAL THERAPIST CENTER MANAGER by Cristhian Crane D.O.
[2020-03-25 21:01] VITALS: O2SAT 100
--- NOTE | 2020-03-25 21:06 | ED.SOB ---
HPI - SOB/Dyspnea General Chief Complaint: Shortness of Breath/Dyspnea Stated Complaint: sob Limitations: clinical condition History of Present Illness HPI Narrative: Patient is a 69-year-old gentleman who presents emergency department with chief complaint of shortness of breath. Patient reports that he was recently in the hospital for pulmonary embolism and also reports that he has end-stage renal disease and is on dialysis. States he is scheduled for dialysis tomorrow but states his evening 2 hours prior to arrival started having significant shortness of breath. Patient was seen by EMS started on oxygen and also given some sublingual nitro. Patient states he feels a little bit better but still has marked respiratory distress and he has difficulty speaking in complete sentences. Related Data Home Medications Medication Instructions Recorded Confirmed amiodarone 200 mg PO DAILY 01/21/20 01/21/20 atorvastatin 40 mg PO HS 01/21/20 01/21/20 fluticasone propionate 2 spray INTRANASAL HS 01/21/20 01/21/20 gabapentin [Neurontin] 200 mg PO TID 01/21/20 01/21/20 levalbuterol tartrate 2 puff INHALATION 01/21/20 01/21/20 metoprolol succinate 50 mg PO DAILY 01/21/20 01/21/20 nitroglycerin 0.4 mg SUBLINGUAL PRN PRN 01/21/20 01/21/20 tramadol 50 - 100 mg PO Q6H PRN 01/21/20 01/21/20 Allergies Allergy/AdvReac Type Severity Reaction Status Date / Time Penicillins Allergy Intermediate Hives Verified 01/21/20 13:22 Review of Systems Review of Systems: Narrative: CONSTITUTIONAL: Denies fever, chills, or sweats. EYES: Denies visual changes, redness, or discharge. ENT: Denies rhinorrhea, congestion, sore throat, or otalgia. CARDIOVASCULAR: Denies chest pain, palpitations, or edema. RESPIRATORY: Denies cough or dyspnea. GASTROINTESTINAL: Denies abdominal pain, nausea, vomiting, or diarrhea. GENITOURINARY: Denies dysuria or hematuria. SKIN: Denies rash or itching. MUSCULOSKELETAL: Denies back pain, joint pain, or myalgia. NEUROLOGIC: Denies headache, numbness, or weakness. PSYCHIATRIC: Denies anxiety or depression. A 10 system review of systems was completed on the patient and is negative except for what is stated in the HPI. Nursing and ancillary documentation was reviewed. [facility] Past Medical History Medical History Aneurysm of infrarenal abdominal aorta Stable mid abdominal aortic saccular aneurysm measuring 4.2 cm on imaging dated 01/21/2020. Bacterial infection due to Proteus mirabilis (~10/2018) Secondary to infected dialysis catheter. C. difficile diarrhea (~04/2018) Cerebrovascular accident Post CABG with residual right-sided weakness. Chronic anemia Chronic respiratory failure with hypoxia, on home oxygen therapy On 2 L nasal cannula. Congestive heart failure Echocardiogram in October 2018 showed normal left ventricular systolic function and size with pseudonormal diastolic dysfunction grade 2 ejection fraction of 60%. Coronary artery disease Cardiac catheterization in March 2018 doing showed total occlusion of the obtuse and left main with severe disease in the LAD in which she was transferred to [facility] for urgent 2 vessel CABG. 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 Depression with anxiety End-stage renal disease on hemodialysis Dialysis on Sunday, Sunday, and Sunday. Essential hypertension History of diabetes mellitus No longer on medication. Hypertension Ischemic cardiomyopathy Ejection fraction as low as 35% with improvement on recent echocardiogram as above. 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 Pseudomonas pneumonia STEMI (ST elevation myocardial infarction) Surgical History Surgical History (Reviewed
[2020-03-25 21:21] LABS: Alveolar/Arterial O2 Gradient 176.5 mmHg; Base Excess ABG 1.3 mEq/l (+/-2.0); Fractional Inspired Oxygen 40 %; HCO3 ABG 27.3 mEq/l (22.0-26.0); Oxygen Content ABG 13.9 %vol (16.0-22.0); PCO2 ABG 48.9 mmHg (35.0-45.0); PO2 ABG 52.5 mmHg (80.0-100.0); PO2 FiO2 Ratio Arterial Blood 1.31 %; Total Hemoglobin 11.8 g/dL (12.0-18.0); pH ABG 7.364 (7.350-7.450)
[2020-03-25 21:25] LABS: Device NON-INVASIVE VENT; Modified Allen's Test Pass; Non-Invasive Expiratory Pressure 6 CMH2O; Non-Invasive Inspiratory Pressure 12 CMH2O; Non-Invasive Vent Rate 12 /MIN; Oxygen Saturation ABG 85.6 % (95.0-100.0); Site Drawn LEFT RADIAL
[2020-03-25 21:26] VITALS: RESP 25; O2SAT 98
[2020-03-25 21:51] LABS: Hematocrit 31.4 % (42.0-52.0); Hemoglobin 10.4 g/dL (14.0-18.0); Mean Corpuscular HGB Conc 33.1 g/dl (32-36); Mean Corpuscular Hemoglobin 33.8 pg (26-34); Mean Corpuscular Volume 101.9 fl (80-100); Mean Platelet Volume 8.9 fl (7.4-10.4); Platelet Count Result 435 k/mm3 (150-375); Red Blood Count 3.08 M/mm3 (4.6-6.20); Red Cell Distribution Width 14.5 % (11.5-14.5); White Blood Count 21.4 K/mm3 (4.5-10.0)
[2020-03-25 22:00] VITALS: BP 172/68; PULSE 70; RESP 17; O2SAT 100
[2020-03-25 22:01] LABS: INR 1.4; Prothrombin Time 17.4 Seconds (11.1-14.7)
[2020-03-25 22:03] LABS: Partial Thromboplastin Time 29.7 SECONDS (22.3-36.8)
[2020-03-25 22:04] LABS: Alanine Aminotransferase 13 U/L (4-50); Albumin Level 3.9 g/dL (3.5-5.1); Alkaline Phosphatase 90 U/L (38-126); Anion Gap 13 mmol/L (8-16); Aspartate Amino Transferase 18 U/L (17-59); Bilirubin,Total 0.5 mg/dL (0.2-1.3); Blood Urea Nitrogen 41 mg/dL (9-20); Carbon Dioxide 29 mmol/L (22-30); Chloride 97 mmol/L (98-107); Estimated CRCL calculation 9 ml/min; Estimated Glomerular Filt Rate 5; Glucose 224 mg/dL (75-110); Magnesium 2.2 mg/dL (1.6-2.3); Potassium 5.6 mmol/L (3.4-5.0); Sodium 139 mmol/L (137-145)
[2020-03-25 22:08] LABS: Anisocytosis 1+ (NORMAL); Band Neutrophils Percent 2 % (0-6); Eosinophils Absolute Manual 0.21 K/mm3 (0.02-0.5); Eosinophils Percent Manual 1 % (0-4); Lymphocytes Absolute Manual 0.42 K/mm3 (1.1-4.5); Monocytes Absolute Manual 1.07 K/mm3 (0.1-0.90); Monocytes Percent Manual 5 % (3-9); Neutrophils Absolute Manual 19.68 K/mm3 (1.3-6.7); Neutrophils Percent Manual 90 % (46-73); Platelet Estimate Increased (Adequate); Total Cells Counted 100
[2020-03-25 22:19] LABS: NT Pro B Type Natriuretic Pept > 35000 PG/ML (5-100); Troponin I 0.035 ng/mL (0.000-0.034)
[2020-03-25 23:00] VITALS: BP 152/55; PULSE 67; RESP 15; O2SAT 99
[2020-03-25 23:10] VITALS: PULSE 71; RESP 24; O2SAT 98
[2020-03-26] VITALS (51 sets, daily range): BP systolic 109–205; BP diastolic 42–110; PULSE 55–92; RESP 12–25; TEMP 35.9–37.2; O2SAT 89–100; BMI 31.4
--- NOTE | 2020-03-26 01:14 | PC.NURSE ---
Addendum entered by Patt Cardoza RN 03/26/20 01:15: patient transferred to hospital bed for comfort.Patient tolerated well Patient given urinal for specimen Original Note: Patient to be boarded here in ED-patient transferd
[2020-03-26] MEDS: FUROSEMIDE INJ 100 MG/10 ML VIAL 80 MG IV PUSH (01:38)
[2020-03-26 02:03] LABS: Add Urine Microscopic? YES; Appearance Urine Clear (Clear); Bacteria Urine Trace /hpf; Bilirubin Urine Negative (Negative); Blood Urine Negative (Negative); Color Urine Yellow (Yellow); Glucose Urine UA 2+ mg/dL (Negative); Ketones Urine Negative (Negative); Leukocyte Esterase Ur Negative LEU/UL (Negative); Mucus Urine Rare /lpf; Nitrate Urine Negative (Negative); Protein Urine 3+ mg/dL (Negative); Specific Grav Ur 1.016 (1.001-1.035); Squamous Epithelial Cell Urine Rare /hpf (Few); Urobilinogen Urine Negative mg/dL (<2.0); WBC Urine 0-3 /hpf
--- NOTE | 2020-03-26 03:51 | PM.IMHP ---
H&P: HPI History of Present Illness Date/Time: 03/26/20 03:51 Chief complaint: Fluid Overload,CHF, ESRD, Tropnin Leak Narrative: This is a 69 year old with known history of chronic respiratory failure on 3L of oxygen, paroxysmal atrial fibrillation on long-term anticoagulation, diastolic congestive heart failure, end-stage renal disease on hemodialysis M/W/F, obstructive sleep apnea, hypertension, and hyperlipidemia presented to the hospital with a complaint of increased shortness of breath that started yesterday. He was recently hospitalized on our Hospitalist service when he was found to have a pulmonary embolism. Associated symptoms tonight include fatigue, diaphoresis, and a nonproductive sporadic cough. He denies any fevers, chills, nausea, vomiting, abdominal pain, dysuria, hematuria, diarrhea, rectal bleeding or worsening LE swelling. The patient has been taking his home Lasix which is 160 mg PO BID and has not missed his medications or his dialysis sessions. He does admit to eating salty food recently. On arrival to the ER the patient was placed on bipap and states that he feels much better now. The patient underwent CTA Chest in the ER tonight and his PE was unchanged. Review of Systems Review of Systems: All systems reviewed & are unremarkable except as noted in HPI and below PMFSH Past Medical History Medical History Aneurysm of infrarenal abdominal aorta Stable mid abdominal aortic saccular aneurysm measuring 4.2 cm on imaging dated 01/21/2020. Bacterial infection due to Proteus mirabilis (~10/2018) Secondary to infected dialysis catheter. C. difficile diarrhea (~04/2018) Cerebrovascular accident Post CABG with residual right-sided weakness. Chronic anemia Chronic respiratory failure with hypoxia, on home oxygen therapy On 2 L nasal cannula. Congestive heart failure Echocardiogram in October 2018 showed normal left ventricular systolic function and size with pseudonormal diastolic dysfunction grade 2 ejection fraction of 60%. Coronary artery disease Cardiac catheterization in March 2018 doing showed total occlusion of the obtuse and left main with severe disease in the LAD in which she was transferred to [facility] for urgent 2 vessel CABG. Current use of halfway anticoagulation On warfarin for stroke prophylaxis given atrial fibrillation. Depression with anxiety End-stage renal disease on hemodialysis Dialysis on Sunday, Sunday, and Sunday. Essential hypertension History of diabetes mellitus No longer on medication. Hypertension Ischemic cardiomyopathy Ejection fraction as low as 35% with improvement on recent echocardiogram as above. 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 Pseudomonas pneumonia STEMI (ST elevation myocardial infarction) Surgical History Surgical History History of appendectomy History of cardiac catheterization History of percutaneous endoscopic gastrostomy Subsequently removed. History of tonsillectomy History of tracheostomy History of two vessel coronary artery bypass graft Family History Family History Other Heart disease Social History Social History Social History: Surrogate decision maker: Charley Saleh, . Code status:Full code. Smoking packs per day: 1 Smoking cigarettes per day: 20.0 Years smoked: 40 Smoking pack-years: 40.00 Smoking status: Former smoker Tobacco type: cigarettes Alcohol intake: never Substance use: never Substance use type: does not use Additional living arrangements comments: Resides with his in [place]. They
[2020-03-26 04:13] LABS: Alveolar/Arterial O2 Gradient 133.5 mmHg; Base Excess ABG 3.3 mEq/l (+/-2.0); Device NON-INVASIVE VENT; Fractional Inspired Oxygen 40 %; HCO3 ABG 28.3 mEq/l (22.0-26.0); Modified Allen's Test Pass; Oxygen Content ABG 17.2 %vol (16.0-22.0); Oxygen Saturation ABG 97.6 % (95.0-100.0); Oxyhemoglobin 96.4 % THb (90.0-100.0); PCO2 ABG 44.7 mmHg (35.0-45.0); PO2 ABG 100.3 mmHg (80.0-100.0); PO2 FiO2 Ratio Arterial Blood 2.51 %; Site Drawn LEFT RADIAL; Total Hemoglobin 12.6 g/dL (12.0-18.0)
[2020-03-26 04:14] LABS: Non-Invasive Expiratory Pressure 6 CMH2O; Non-Invasive Inspiratory Pressure 12 CMH2O; Non-Invasive Vent Rate 12 /MIN
[2020-03-26 04:30] LABS: Troponin I 0.065 ng/mL (0.000-0.034)
[2020-03-26 05:07] LABS: Basophils Absolute Auto 0.1 K/mm3 (0.0-0.1); Basophils Percent Auto 0.6 % (0.2-1.2); Eosinophils Absolute Auto 0.3 K/mm3 (0-0.3); Eosinophils Percent Auto 2.1 % (0-4.4); Hematocrit 28.2 % (42.0-52.0); Hemoglobin 9.2 g/dL (14.0-18.0); Immature Granulocyte Absolute 0.06 K/mm3 (0.00-0.031); Immature Granulocyte Percent A 0.5 % (0-0.5); Lymphocytes Absolute Auto 1.57 K/mm3 (0.9-3.2); Lymphocytes Percent Auto 13.3 % (18.3-44.2); Mean Corpuscular HGB Conc 32.6 g/dl (32-36); Mean Corpuscular Hemoglobin 32.7 pg (26-34); Mean Corpuscular Volume 100.4 fl (80-100); Mean Platelet Volume 9.1 fl (7.4-10.4); Monocytes Absolute Auto 1.4 K/mm3 (0.1-0.6); Monocytes Percent Auto 11.8 % (2.6-8.5); Neutrophils Absolute Auto 8.5 K/mm3 (1.3-6.7); Neutrophils Percent Auto 71.7 % (45.5-73.1); Platelet Count Result 398 k/mm3 (150-375); Red Blood Count 2.81 M/mm3 (4.6-6.20); Red Cell Distribution Width 14.4 % (11.5-14.5); White Blood Count 11.8 K/mm3 (4.5-10.0)
[2020-03-26 05:20] LABS: Anion Gap 10 mmol/L (8-16); Blood Urea Nitrogen 46 mg/dL (9-20); Calcium 8.4 mg/dL (8.4-10.2); Carbon Dioxide 29 mmol/L (22-30); Chloride 99 mmol/L (98-107); Estimated CRCL calculation 9 ml/min; Estimated Glomerular Filt Rate 5; Glucose 134 mg/dL (75-110); Potassium 5.6 mmol/L (3.4-5.0); Sodium 138 mmol/L (137-145)
[2020-03-26 05:25] LABS: INR 1.4; Prothrombin Time 17.6 Seconds (11.1-14.7)
[2020-03-26 05:26] LABS: Partial Thromboplastin Time 34.9 SECONDS (22.3-36.8)
[2020-03-26] MEDS: HEPARIN SODIUM 5,000 UNITS/ML VIAL 4000 UNITS IV PUSH ×2 (06:46→21:58)
[2020-03-26] MEDS: HEPARIN SOD/D5W 100 UNITS/ML 25,000 UNITS/250 ML BAG 10 UNITS IV CONT (06:47)
[2020-03-26 07:01] LABS: Basophils Absolute Auto 0.1 K/mm3 (0.0-0.1); Basophils Percent Auto 0.6 % (0.2-1.2); Eosinophils Absolute Auto 0.4 K/mm3 (0-0.3); Eosinophils Percent Auto 3.3 % (0-4.4); Hemoglobin 9.2 g/dL (14.0-18.0); Immature Granulocyte Absolute 0.05 K/mm3 (0.00-0.031); Immature Granulocyte Percent A 0.4 % (0-0.5); Lymphocytes Percent Auto 16.8 % (18.3-44.2); Mean Corpuscular HGB Conc 32.9 g/dl (32-36); Mean Corpuscular Hemoglobin 33.5 pg (26-34); Mean Corpuscular Volume 101.8 fl (80-100); Mean Platelet Volume 9.1 fl (7.4-10.4); Monocytes Absolute Auto 1.4 K/mm3 (0.1-0.6); Neutrophils Absolute Auto 7.5 K/mm3 (1.3-6.7); Neutrophils Percent Auto 66.9 % (45.5-73.1); Platelet Count Result 378 k/mm3 (150-375); Red Blood Count 2.75 M/mm3 (4.6-6.20); Red Cell Distribution Width 14.6 % (11.5-14.5); White Blood Count 11.3 K/mm3 (4.5-10.0)
--- NOTE | 2020-03-26 07:16 | PC.NURSE ---
Report received from MADAI Beltre. Pt sitting up at bedside, has bipap mask off, states doesn't fit correctly. Pt requesting breakfast and a bed upstairs. Explained that we're awaiting bed placement upstairs for admission and that the house is busy but are working on it. Mask replaced, VSS. Respiratory called to check bipap and mask.
[2020-03-26 07:26] LABS: Troponin I 0.068 ng/mL (0.000-0.034)
[2020-03-26 07:33] LABS: INR 1.4; Prothrombin Time 17.9 Seconds (11.1-14.7)
[2020-03-26 07:34] LABS: Partial Thromboplastin Time 30.9 SECONDS (22.3-36.8)
--- NOTE | 2020-03-26 07:51 | PC.NURSE ---
Note PTT @ 0647 = 30.9, (heparin gtt initiated @ 0615 and heparin bolus 4000u @ 0646), plan to repeat PTT @ 1247 per protocol.
--- NOTE | 2020-03-26 08:00 | PC.NURSE ---
bipap placed on hold and pt given breakfast.
--- NOTE | 2020-03-26 10:37 | PC.NURSE ---
Pt sleeping soundly on bed. Continue to await bed availability for admission.
--- NOTE | 2020-03-26 11:32 | PC.NURSE ---
Bed received, SBAR faxed, Mindy in IMU made aware.
--- NOTE | 2020-03-26 11:50 | PC.NURSE ---
Call to IMU, floor RN unable to take report.
--- NOTE | 2020-03-26 12:05 | PC.NURSE ---
Called to patient's room, pt angry regarding multiple issues, the wait, that he hasn't seen anyone but the ED doctor , that there are COVID patients' around him, that he has a P.E. and nobody seems to care . Pt has removed his bipap and states he was told he wasn't going to have to wear it I only wear 3.5 liters o2 anyway . Emotional support given, explained that Dr. Schulz, the hospitalist, wrote orders, and that he was most likely seen by him throughout the night. Also explained that we're monitoring him as they would in IMU, and that they're moving patients to accomodate him wesley. As to patients' complaints regarding the room cleanliness, explained that the patient that has COVID across the hale from him has precautions in place, that the patient is more than 6 ft away and he has had no contact with that patient. Assured patient that the room was wiped down prior to him occupying it, but pt concerned about the trash being removed and that the patient in the room prior also had COVID. o2 placed at 3.5L/nc. Preparing to contact Dr. Ruiz. automotive buyer Mindy made aware of pt's dissatisfaction.
--- NOTE | 2020-03-26 12:14 | PC.NURSE ---
Dr. Ruiz, the hospitalist, contacted per this RN. Explained about pt's dissatisfaction. States he is rounding on the other patients and that he will arrive wesley. Verbal order received to discontinue the bipap and leave the pt on 3.5 Liters at this time. Pt updated. Lunch ordered for patient.
--- NOTE | 2020-03-26 13:03 | PC.NURSE ---
Report to IMU given, timed labs being collected. Preparing to transport to IMU via RN and tech.
[2020-03-26 13:23] LABS: INR 1.3; Partial Thromboplastin Time 38.7 SECONDS (22.3-36.8); Prothrombin Time 16.5 Seconds (11.1-14.7)
--- NOTE | 2020-03-26 14:13 | PM.CNNEP ---
Assessment and Plan Assessment and plan (1) End stage renal disease: Code(s): N18.6 - End stage renal disease Status: Chronic Assessment and Plan: hemodialysis today and continue M/W/F schedule follow elecrolytes, volume status, and clearance (2) Acute on chronic respiratory failure with hypoxia: Code(s): J96.21 - Acute and chronic respiratory failure with hypoxia Status: Acute Assessment and Plan: due to #4 and likely dietary indiscretion maximize ultrafiltration with HD today consider DUF tomorrow for further fluid removal (3) Hyperkalemia: Code(s): E87.5 - Hyperkalemia Status: Acute Assessment and Plan: should correct with dialytic intervention today follow repeat labs (4) Fluid overload: Qualifiers: Hypervolemia type: unspecified Qualified Code(s): E87.70 - Fluid overload, unspecified Code(s): E87.70 - Fluid overload, unspecified Status: Acute Assessment and Plan: as noted by imaging studies to date fluid removal with dialysis today possible DUF tomorrow (5) Anemia: Code(s): D64.9 - Anemia, unspecified Status: Chronic Assessment and Plan: due to ESRD Epogen with HD follow trend of H/H Will continue to follow. History of Present Illness Reason for Consult Consult date: 03/26/20 Reason for consult: end stage renal disease Chief Complaint Chief complaint: Fluid Overload,CHF, ESRD, Tropnin Leak History of Present Illness Narrative: The patient is a 69 year old male with a past medical history as outlined below who presented to [facility] ER with complaints of shortness of breath. The patient's shortness of breath started yesterday with associated symptoms of fatigue, diaphoresis, and nonproductive cough. He gave no history of fevers, chills, nausea, vomiting, abdominal pain, dysuria, hematuria, diarrhea, or worsening lower extremity edema. He states he has been compliant with his medications but does admit to increased salt intake a in the last few days. He also states that he is not taking in any more fluid than usual but his previous hospitalizations and history would argue against this. Next Workup and evaluation in the emergency room demonstrated the patient to be in acute respiratory distress which improved significantly with application of BiPAP. Routine blood test demonstrated labs consistent with his known history of end-stage renal disease and imaging studies included chest x-ray as well as a CT scan of the chest demonstrated clear evidence of volume overload, pulmonary vascular congestion, and large pleural effusions. The CT scan of his chest did not show any change in his previous pulmonary embolism. Given these constellation of symptoms and lab/imaging findings, he was admitted the hospital for further evaluation and therapy. Renal consultation was requested due to his end-stage renal disease. The patient normally dialyzes on a Sunday schedule under the care of Dr. Harshil Cardenas at for [facility]. With the schedule, his last dialysis treatment was on Sunday (03/23/20) with his next dialysis outpatient treatment scheduled for today. From a dialysis perspective, he has been doing reasonably well with relative stability in his CKD parameters but he has been known to have significant/frequent excessive fluid gains in between his dialysis treatments at baseline. Currently, his respiratory status appears to be doing somewhat better, Dialysis is being arranged for today. Review of Systems Review of Systems: Narrative: As per HPI. [facility] Past Medical History Medical History Aneurysm of infrarenal abdominal aorta Stable mid abdominal aortic saccular aneurysm measuring 4.2 cm on imaging dated 01/21/2020. Bacterial infection due to Proteus mirabilis (~
--- NOTE | 2020-03-26 14:55 | ADMGEN ---
This patient, David Saleh, was admitted to IMU Room 203-01. Patient/family oriented to hospital policies and general routines including ID bracelet, bed and alarms, visiting hours, pain management, procedures, bathroom and other care routines, personal items, smoking policy, room service/diet, and visiting hours. Information on how to activate the Rapid Response Team has been discussed. Patient/Family are encouraged to report perceived risks to care and to ask questions if they do not understand what they are told or what they should do.
--- NOTE | 2020-03-26 17:04 | PM.IMPN ---
Progress Note: A&P Assessment and Plan (1) Acute on chronic respiratory failure with hypoxia: Code(s): J96.21 - Acute and chronic respiratory failure with hypoxia Status: Acute Assessment and Plan: 03/26/20 17:04 Patient is 69-year-old male with history of end-stage renal renal disease on hemodialysis chronic respiratory failure on 3 L oxygen, proximal atrial fibrillation, obstructive sleep apnea, apparently patient had missed his dialysis and was progressively short of breath presented emergency department further evaluation, he was recently admitted to the hospital in January with shortness of breath and was found to have pulmonary emboli and being anticoagulated however patient is noncompliant and INR is subtherapeutic, patient states his symptoms were getting progressively worse he was not able to ambulate and was shaking therefore he presented emergency depart further evaluate, upon arrival CT scan of the chest showed bilateral large pleural effusion and a BNP of 35,000 suggesting patient is volume overloaded as patient had misses his dialysis yesterday due to Thanksgiving, communicated with mechanic general operational test and patient will have dialysis today, will continue to monitor, CTA of the chest did not show any significant change in patient pulmonary emboli, (2) Acute on chronic diastolic heart failure: Code(s): I50.33 - Acute on chronic diastolic (congestive) heart failure Status: Acute Assessment and Plan: Patient is being diuresed as well as patient will have dialysis today (3) Fluid overload: Qualifiers: Hypervolemia type: unspecified Qualified Code(s): E87.70 - Fluid overload, unspecified Code(s): E87.70 - Fluid overload, unspecified Status: Acute Assessment and Plan: Patient with history of end-stage renal disease on hemodialysis patient missed dialysis yesterday resulting in volume overload patient will have dialysis today (4) Elevated troponin: Code(s): R77.8 - Other specified abnormalities of plasma proteins Status: Acute Assessment and Plan: Most likely secondary to end-stage renal disease and shortness of breath demand ischemia unlikely acute coronary syndrome (5) Leukocytosis: Code(s): D72.829 - Elevated white blood cell count, unspecified Status: Acute Assessment and Plan: Most likely secondary to stress will monitor (6) Chronic anemia: Code(s): D64.9 - Anemia, unspecified Status: Chronic Assessment and Plan: Secondary to end-stage renal disease on Epogen seen by mechanic general operational test (7) Subtherapeutic international normalized ratio (INR): Code(s): R79.1 - Abnormal coagulation profile Status: Acute Assessment and Plan: Most likely secondary to noncompliance will resume warfarin and bridge the patient with heparin (8) Hyperkalemia: Code(s): E87.5 - Hyperkalemia Status: Acute Assessment and Plan: Most likely secondary to missed dialysis will monitor (9) Paroxysmal atrial fibrillation: Code(s): I48.0 - Paroxysmal atrial fibrillation Status: Acute Assessment and Plan: Rate is controlled and stable (10) Obstructive sleep apnea on CPAP: Code(s): G47.33 - Obstructive sleep apnea (adult) (pediatric); Z99.89 - Dependence on other enabling machines and devices Status: Acute Assessment and Plan: Will continue CPAP (11) Essential hypertension: Code(s): I10 - Essential (primary) hypertension Status: Chronic Assessment and Plan: Will continue home regimen (12) End-stage renal disease on hemodialysis: Code(s): N18.6 - End stage renal disease; Z99.2 - Dependence on renal dialysis Status: Chronic Assessment and Plan: Patient will have scheduled dialysis seen by mechanic general operational test (13) Pulmonary embolism: Qualifiers: Acute cor pulmonale presence: without acute cor pulmonale Chronicity: acute Pul
[2020-03-26] MEDS: SODIUM CHLORIDE 0.9% IV 1,000 ML 100 ML IV CONT (18:29)
[2020-03-26] MEDS: EPOETIN ALFA-EPBX 10,000 UNITS/ML VIAL 10000 UNITS IV PUSH (18:30)
[2020-03-26 21:40] LABS: Partial Thromboplastin Time 45.3 SECONDS (22.3-36.8)
[2020-03-26] MEDS: LEVALBUTEROL HFA (*SP) 15 GM INHALER 2 PUFF INHALATION (23:00)
[2020-03-26] MEDS: FLUTICASONE PROPIONATE 0.05% NA SPR 16 GM BTL (*BKC) 2 SPRAY NASAL (23:43)
[2020-03-26] MEDS: LOSARTAN POTASSIUM 50 MG TABLET PO (23:44)
[2020-03-26] MEDS: GABAPENTIN 100 MG CAPSULE 200 MG PO (23:44)
[2020-03-27] VITALS (29 sets, daily range): BP systolic 124–173; BP diastolic 47–87; PULSE 59–86; RESP 16–19; TEMP 36–36.8; O2SAT 91–100
[2020-03-27] MEDS: traMADol HCL (*CRX) 50 MG TABLET PO ×2 (00:05→08:53)
[2020-03-27] MEDS: METOPROLOL SUCCINATE EXT REL 50 MG TABCR PO ×2 (00:06→22:50)
[2020-03-27 04:48] LABS: Basophils Absolute Auto 0.1 K/mm3 (0.0-0.1); Basophils Percent Auto 0.7 % (0.2-1.2); Eosinophils Absolute Auto 0.4 K/mm3 (0-0.3); Eosinophils Percent Auto 4.7 % (0-4.4); Hematocrit 26.4 % (42.0-52.0); Immature Granulocyte Absolute 0.07 K/mm3 (0.00-0.031); Immature Granulocyte Percent A 0.7 % (0-0.5); Lymphocytes Absolute Auto 1.83 K/mm3 (0.9-3.2); Lymphocytes Percent Auto 19.5 % (18.3-44.2); Mean Corpuscular HGB Conc 34.1 g/dl (32-36); Mean Corpuscular Hemoglobin 33.5 pg (26-34); Mean Corpuscular Volume 98.1 fl (80-100); Mean Platelet Volume 9.2 fl (7.4-10.4); Monocytes Absolute Auto 1.4 K/mm3 (0.1-0.6); Neutrophils Absolute Auto 5.6 K/mm3 (1.3-6.7); Neutrophils Percent Auto 59.4 % (45.5-73.1); Platelet Count Result 371 k/mm3 (150-375); Red Blood Count 2.69 M/mm3 (4.6-6.20); Red Cell Distribution Width 14.2 % (11.5-14.5); White Blood Count 9.4 K/mm3 (4.5-10.0)
[2020-03-27 04:59] LABS: INR 1.4; Prothrombin Time 17.4 Seconds (11.1-14.7)
[2020-03-27] MEDS: HEPARIN SOD/D5W 100 UNITS/ML 25,000 UNITS/250 ML BAG 14 UNITS IV CONT (05:06)
[2020-03-27 05:45] LABS: Albumin Level 3.4 g/dL (3.5-5.1); Anion Gap 5 mmol/L (8-16); Blood Urea Nitrogen 25 mg/dL (9-20); Carbon Dioxide 32 mmol/L (22-30); Chloride 99 mmol/L (98-107); Estimated CRCL calculation 12 ml/min; Estimated Glomerular Filt Rate 9; Glucose 141 mg/dL (75-110); Phosphorus 4.5 mg/dL (2.5-4.5); Potassium 4.7 mmol/L (3.4-5.0); Sodium 136 mmol/L (137-145)
[2020-03-27] MEDS: ASPIRIN 81 MG ENTERIC TABLET PO (08:54)
[2020-03-27] MEDS: AMIODARONE HCL 200 MG TABLET PO (08:54)
[2020-03-27] MEDS: GABAPENTIN 100 MG CAPSULE 200 MG PO (08:54)
[2020-03-27 10:43] LABS: Partial Thromboplastin Time 68.4 SECONDS (22.3-36.8)
--- NOTE | 2020-03-27 11:19 | PM.PNNEP ---
Progress Note: A&P Assessment and Plan (1) End stage renal disease: Code(s): N18.6 - End stage renal disease Status: Chronic Assessment and Plan: Dry ultrafiltration today to get extra fluid off. He will get dialysis again on Sunday and continue his usual schedule. Volume overload is improved but not as good as it should be. Long discussion with the patient about drinking too much fluid and eating too much salt. He seems to deny taking much in but clearly he has 3 for 5 or even 6 or 7 L of fluid on when he comes in to treatment at times. He says that he feels fine even when he has all that weight on. There is only so much room for him to gain weight, however, and when he gains that much fluid routinely then having an extra bad day causes him to go into the hospital. I fear that his heart is going to be developing cardiomyopathy because of the huge swings in fluid status that happens with his drinking and eating salt. He understands what I am saying and will try to continue watching his fluids. (2) Acute on chronic respiratory failure with hypoxia: Code(s): J96.21 - Acute and chronic respiratory failure with hypoxia Status: Acute Assessment and Plan: due to #4 and likely dietary indiscretion maximize ultrafiltration with HD today consider DUF tomorrow for further fluid removal (3) Hyperkalemia: Code(s): E87.5 - Hyperkalemia Status: Acute Assessment and Plan: Resolved (4) Fluid overload: Qualifiers: Hypervolemia type: unspecified Qualified Code(s): E87.70 - Fluid overload, unspecified Code(s): E87.70 - Fluid overload, unspecified Status: Acute Assessment and Plan: as noted by imaging studies to date fluid removal with dry ultrafiltration today possible DUF tomorrow (5) Anemia: Code(s): D64.9 - Anemia, unspecified Status: Chronic Assessment and Plan: due to ESRD Epogen with HD follow trend of H/H Subjective Date/time seen: 03/27/20 11:19 Interval history: The patient is on dry ultrafiltration and tolerating it well. Blood pressure is doing well. He feels less short of breath. He was seen at 11 a.m. Review of Systems Cardiovascular: Cardiovascular: Reports no additional cardiovascular complaints Respiratory: Respiratory: Reports no additional respiratory complaints Gastrointestinal: Gastrointestinal: Reports no additional gastrointestinal complaints Genitourinary: Genitourinary: Reports no additional male genitourinary complaints Exam Narrative: Exam Narrative: WDWN in NAD skin no rash head ncat lungs clear cor reg no rub abd BS+ nontender and soft ext 1+ edema. Objective Data Vital Signs Vital Signs: Vital Signs - 24 hr 03/26/20 12:52 03/26/20 16:00 03/26/20 16:10 Temperature 36.9 C Pulse Rate 80 80 Respiratory Rate 24 H Blood Pressure 183/83 H Pulse Oximetry 96 98 03/26/20 16:18 03/26/20 16:34 03/26/20 16:45 Temperature 37.2 C Pulse Rate 75 73 73 Respiratory Rate 20 Blood Pressure 153/67 H 169/86 H 177/75 H Pulse Oximetry 98 03/26/20 17:00 03/26/20 17:15 03/26/20 17:30 Temperature Pulse Rate 75 78 77 Respiratory Rate Blood Pressure 193/95 H 200/97 H 196/91 H Pulse Oximetry 03/26/20 17:45 03/26/20 18:00 03/26/20 18:15 Temperature Pulse Rate 78 80 79 Respiratory Rate Blood Pressure 196/90 H 187/90 H 187/90 H Pulse Oximetry 03/26/20 18:30 03/26/20 18:45 03/26/20 19:00 Temperature Pulse Rate 81 85 80 Respiratory Rate Blood Pressure 184/83 H 201/94 H 184/101 H Pulse Oximetry 03/26/20 19:15 03/26/20 19:33 03/26/20 19:45 Temperature Pulse Rate 85 81 85 Respiratory Rate Blood Pressure 202/98 H 171/84 H 205/93 H Pulse Oximetry 03/26/20 20:00 03/26/20 20:07 03/26/20 20:17 Temperature 36.8 C Pulse Rate 84 84 84 Respiratory Rate 18 Blood Pressure 182/96 H 174/85 H Pul
--- NOTE | 2020-03-27 12:06 | PC.NURSE ---
This patient, David Saleh, was transferred to [facility] on 03/27/20 at 1207. Personal belongings sent with patient. Report given to Desire RN. Appropriate documentation sent with patient.
[2020-03-27 13:43] LABS: SARS-CoV-2 RNA PCR Negative
[2020-03-27] MEDS: GABAPENTIN 300 MG CAPSULE PO ×2 (13:51→22:50)
--- NOTE | 2020-03-27 15:19 | PM.IMPN ---
Progress Note: A&P Assessment and Plan (1) Acute on chronic respiratory failure with hypoxia: Code(s): J96.21 - Acute and chronic respiratory failure with hypoxia Status: Acute Assessment and Plan: 03/27/20 15:19 Patient is 69-year-old male with history of end-stage renal renal disease on hemodialysis chronic respiratory failure on 3 L oxygen, proximal atrial fibrillation, obstructive sleep apnea, apparently patient had missed his dialysis and was progressively short of breath presented emergency department further evaluation, he was recently admitted to the hospital in January with shortness of breath and was found to have pulmonary emboli and being anticoagulated however patient is noncompliant and INR is subtherapeutic, patient states his symptoms were getting progressively worse he was not able to ambulate and was shaking therefore he presented emergency depart further evaluate, upon arrival CT scan of the chest showed bilateral large pleural effusion and a BNP of 35,000 suggesting patient was volume overloaded as patient had misses his dialysis on 03/25 due to Thanksgiving, communicated with director of student affairs and patient had on 03/26, Today 03/27 patient is seen by Dr. Cardenas and patient is having dialysis, stats feeling much better compared to when he arrived, will continue to monitor, CTA of the chest did not show any significant change in patient pulmonary emboli, Patient INR is subtherapautic. will start patient on warfarin 4mg his home dose and bridge him with heparin and monitor his INR. (2) Acute on chronic diastolic heart failure: Code(s): I50.33 - Acute on chronic diastolic (congestive) heart failure Status: Acute Assessment and Plan: Patient is being diuresed as well as patient will have dialysis today (3) Fluid overload: Qualifiers: Hypervolemia type: unspecified Qualified Code(s): E87.70 - Fluid overload, unspecified Code(s): E87.70 - Fluid overload, unspecified Status: Acute Assessment and Plan: Patient with history of end-stage renal disease on hemodialysis patient missed dialysis yesterday resulting in volume overload patient will have dialysis today (4) Elevated troponin: Code(s): R77.8 - Other specified abnormalities of plasma proteins Status: Acute Assessment and Plan: Most likely secondary to end-stage renal disease and shortness of breath demand ischemia unlikely acute coronary syndrome (5) Leukocytosis: Code(s): D72.829 - Elevated white blood cell count, unspecified Status: Acute Assessment and Plan: Most likely secondary to stress will monitor (6) Chronic anemia: Code(s): D64.9 - Anemia, unspecified Status: Chronic Assessment and Plan: Secondary to end-stage renal disease on Epogen seen by director of student affairs (7) Subtherapeutic international normalized ratio (INR): Code(s): R79.1 - Abnormal coagulation profile Status: Acute Assessment and Plan: Most likely secondary to noncompliance will resume warfarin and bridge the patient with heparin (8) Hyperkalemia: Code(s): E87.5 - Hyperkalemia Status: Acute Assessment and Plan: Most likely secondary to missed dialysis will monitor (9) Paroxysmal atrial fibrillation: Code(s): I48.0 - Paroxysmal atrial fibrillation Status: Acute Assessment and Plan: Rate is controlled and stable (10) Obstructive sleep apnea on CPAP: Code(s): G47.33 - Obstructive sleep apnea (adult) (pediatric); Z99.89 - Dependence on other enabling machines and devices Status: Acute Assessment and Plan: Will continue CPAP (11) Essential hypertension: Code(s): I10 - Essential (primary) hypertension Status: Chronic Assessment and Plan: Will continue home regimen (12) End-stage renal disease on hemodialysis: Code(s): N18.6 - End stage renal disease; Z99.2 - Dependence on renal manish
--- NOTE | 2020-03-27 16:06 | PC.NURSE ---
Addendum entered by Rachna Martell RN 03/27/20 16:08: Received from IMU unit via dialysis room. Original Note: This patient, David Saleh, was received from IMU on 03/27/20 at 1340. Patient/family oriented to unit policies and routines
[2020-03-27 16:31] LABS: Partial Thromboplastin Time 71.7 SECONDS (22.3-36.8)
[2020-03-27] MEDS: WARFARIN (*PBKC) 4 MG TABLET PO (16:46)
[2020-03-27] MEDS: FLUTICASONE PROPIONATE 0.05% NA SPR 16 GM BTL (*BKC) 2 SPRAY NASAL (22:49)
[2020-03-27] MEDS: LOSARTAN POTASSIUM 50 MG TABLET PO (22:51)
[2020-03-27 22:54] LABS: Partial Thromboplastin Time 67.6 SECONDS (22.3-36.8)
[2020-03-27] MEDS: LEVALBUTEROL HFA (*SP) 15 GM INHALER 2 PUFF INHALATION (23:00)
[2020-03-27] MEDS: HEPARIN SODIUM 5,000 UNITS/ML VIAL 4000 UNITS IV PUSH (23:16)
[2020-03-28] VITALS (8 sets, daily range): BP systolic 146–169; BP diastolic 56–68; PULSE 59–76; RESP 12–18; TEMP 36.1–36.6; O2SAT 94–100
[2020-03-28] MEDS: HEPARIN SOD/D5W 100 UNITS/ML 25,000 UNITS/250 ML BAG 16 UNITS IV CONT ×2 (00:15→15:45)
[2020-03-28 06:00] LABS: INR 1.2; Prothrombin Time 15.4 Seconds (11.1-14.7)
[2020-03-28 06:01] LABS: Hematocrit 27.7 % (42.0-52.0); Hemoglobin 9.1 g/dL (14.0-18.0); Mean Corpuscular HGB Conc 32.9 g/dl (32-36); Mean Corpuscular Hemoglobin 33.5 pg (26-34); Mean Corpuscular Volume 101.8 fl (80-100); Mean Platelet Volume 9.6 fl (7.4-10.4); Platelet Count Result 370 k/mm3 (150-375); Red Blood Count 2.72 M/mm3 (4.6-6.20); Red Cell Distribution Width 14.4 % (11.5-14.5); White Blood Count 9.5 K/mm3 (4.5-10.0)
[2020-03-28 06:02] LABS: Partial Thromboplastin Time 85.1 SECONDS (22.3-36.8)
[2020-03-28] MEDS: GABAPENTIN 300 MG CAPSULE PO ×3 (06:40→21:00)
[2020-03-28 06:47] LABS: Albumin Level 3.4 g/dL (3.5-5.1); Anion Gap 10 mmol/L (8-16); Blood Urea Nitrogen 46 mg/dL (9-20); Calcium 8.5 mg/dL (8.4-10.2); Carbon Dioxide 28 mmol/L (22-30); Chloride 97 mmol/L (98-107); Estimated CRCL calculation 9 ml/min; Estimated Glomerular Filt Rate 6; Glucose 136 mg/dL (75-110); Potassium 4.9 mmol/L (3.4-5.0); Sodium 135 mmol/L (137-145)
[2020-03-28] MEDS: ASPIRIN 81 MG ENTERIC TABLET PO (08:40)
[2020-03-28] MEDS: AMIODARONE HCL 200 MG TABLET PO (08:40)
--- NOTE | 2020-03-28 11:30 | PM.PNNEP ---
Progress Note: A&P Assessment and Plan (1) End stage renal disease: Code(s): N18.6 - End stage renal disease Status: Chronic Assessment and Plan: Dry ultrafiltration done yesterday. He will get dialysis again tomorrow. Continue to try to keep volume off. (2) Acute on chronic respiratory failure with hypoxia: Code(s): J96.21 - Acute and chronic respiratory failure with hypoxia Status: Acute Assessment and Plan: due to #4 and likely dietary indiscretion He looks better now than he has in a long time. (3) Hyperkalemia: Code(s): E87.5 - Hyperkalemia Status: Acute Assessment and Plan: Resolved (4) Fluid overload: Qualifiers: Hypervolemia type: unspecified Qualified Code(s): E87.70 - Fluid overload, unspecified Code(s): E87.70 - Fluid overload, unspecified Status: Acute Assessment and Plan: as noted by imaging studies to date (5) Anemia: Code(s): D64.9 - Anemia, unspecified Status: Chronic Assessment and Plan: due to ESRD Epogen with HD Hemoglobin stable in the low 9s Subjective Date/time seen: 03/28/20 11:30 Interval history: pt is sitting at the side of the bed. Blood pressure is doing well. He feels less short of breath but still a little bit.. Review of Systems Cardiovascular: Cardiovascular: Reports no additional cardiovascular complaints Respiratory: Respiratory: Reports no additional respiratory complaints Gastrointestinal: Gastrointestinal: Reports no additional gastrointestinal complaints Genitourinary: Genitourinary: Reports no additional male genitourinary complaints Exam Narrative: Exam Narrative: WDWN in NAD skin no rash head ncat lungs clear bilaterally cor reg no rub abd BS+ nontender and soft ext 1+ edema. Objective Data Vital Signs Vital Signs: Vital Signs - 24 hr 03/27/20 11:45 03/27/20 12:00 03/27/20 12:15 Temperature Pulse Rate 61 63 62 Respiratory Rate Blood Pressure 154/74 H 157/76 H 155/66 H Pulse Oximetry 03/27/20 12:30 03/27/20 12:45 03/27/20 12:51 Temperature 36.6 C Pulse Rate 63 68 64 Respiratory Rate 18 Blood Pressure 124/52 L 161/77 H 160/70 H Pulse Oximetry 03/27/20 14:00 03/27/20 21:04 03/27/20 21:10 Temperature 36.7 C 36.1 C L Pulse Rate 68 70 Respiratory Rate 18 17 Blood Pressure 138/72 147/87 H Pulse Oximetry 94 100 100 03/27/20 22:50 03/28/20 00:40 03/28/20 06:00 Temperature 36.1 C L Pulse Rate 70 69 59 L Respiratory Rate 18 15 Blood Pressure 146/56 H Pulse Oximetry 94 100 03/28/20 08:00 03/28/20 08:40 Temperature Pulse Rate 59 L 76 Respiratory Rate 15 Blood Pressure Pulse Oximetry 100 Intake/Output Intake/Output: Intake & Output 03/25/20 03/26/20 03/27/20 03/28/20 23:59 23:59 23:59 23:59 Intake Total 480 1630 490 Output Total 4172 3600 [facility] -3695 -1969 490 Meds/Results Medications: Active Medications Generic Name Dose Route Start Last Admin Trade Name Freq PRN Reason Stop Dose Admin Amiodarone HCl 200 mg 03/27/20 08:00 03/28/20 08:40 Amiodarone Hcl 200 Mg Tablet PO 200 mg DAILY@0800 LUDWIG Administration Aspirin 81 mg 03/27/20 09:00 03/28/20 08:40 Aspirin 81 Mg Enteric Tablet PO 81 mg DAILY LUDWIG Administration Fluticasone Propionate 2 spray 03/26/20 22:40 03/27/20 22:49 Fluticasone Propionate 0.05% Na Spr 16 Gm Btl (*Bkc) NASAL 2 spray HS LUDWIG Administration Gabapentin 300 mg 03/27/20 14:00 03/28/20 06:40 Gabapentin 300 Mg Capsule PO 300 mg Q8HR LUDWIG Administration Guaifenesin 600 mg 03/28/20 10:00 Guaifenesin 12 Hr 600 Mg Tabcr PO Q12HR LUDWIG Heparin Sodium (Porcine) 4,000 units 03/26/20 06:12 03/26/20 21:58 Heparin Sodium 5,000 Units/Ml Vial IV PUSH 4,000 units PRN PRN Administration aPTT less than 55 seconds Heparin Sodium (Porcine) 4,000 units 03/26/20 06:12
[2020-03-28 11:31] LABS: Partial Thromboplastin Time 79.5 SECONDS (22.3-36.8)
[2020-03-28] MEDS: guaiFENesin 12 HR 600 MG TABCR PO ×2 (12:42→20:00)
--- NOTE | 2020-03-28 14:14 | PM.IMPN ---
Progress Note: A&P Assessment and Plan (1) Acute on chronic respiratory failure with hypoxia: Code(s): J96.21 - Acute and chronic respiratory failure with hypoxia Status: Acute Assessment and Plan: 03/28/20 14:14 Patient is 69-year-old male with history of end-stage renal renal disease on hemodialysis chronic respiratory failure on 3 L oxygen, proximal atrial fibrillation, obstructive sleep apnea, apparently patient had missed his dialysis and was progressively short of breath presented emergency department further evaluation, he was recently admitted to the hospital in January with shortness of breath and was found to have pulmonary emboli and being anticoagulated however patient is noncompliant and INR is subtherapeutic, patient states his symptoms were getting progressively worse he was not able to ambulate and was shaking therefore he presented emergency depart further evaluate, upon arrival CT scan of the chest showed bilateral large pleural effusion and a BNP of 35,000 suggesting patient was volume overloaded as patient had misses his dialysis on 03/25 due to Thanksgiving, communicated with french drawer and patient had HD on 03/26, and on 03/27 patient is seen by Dr. Cardenas d/w patient is noncompliant with fluids restriction and intake more fluids and becomes volume overloaded and needs frequent HD, will continue to monitor, CTA of the chest did not show any significant change in patient pulmonary emboli, Patient INR is subtherapautic. patient is on warfarin 4mg his home dose and bridge him with heparin and monitor his INR, INR today in 1.2 will increase his Warfarin to 6mg daily, will monitor his INR and plan, he will get HD tomorrow further recommendation to follow. (2) Acute on chronic diastolic heart failure: Code(s): I50.33 - Acute on chronic diastolic (congestive) heart failure Status: Acute Assessment and Plan: Patient is being diuresed as well as patient will have dialysis today (3) Fluid overload: Qualifiers: Hypervolemia type: unspecified Qualified Code(s): E87.70 - Fluid overload, unspecified Code(s): E87.70 - Fluid overload, unspecified Status: Acute Assessment and Plan: Patient with history of end-stage renal disease on hemodialysis patient missed dialysis yesterday resulting in volume overload patient will have dialysis today (4) Elevated troponin: Code(s): R77.8 - Other specified abnormalities of plasma proteins Status: Acute Assessment and Plan: Most likely secondary to end-stage renal disease and shortness of breath demand ischemia unlikely acute coronary syndrome (5) Leukocytosis: Code(s): D72.829 - Elevated white blood cell count, unspecified Status: Acute Assessment and Plan: Most likely secondary to stress will monitor (6) Chronic anemia: Code(s): D64.9 - Anemia, unspecified Status: Chronic Assessment and Plan: Secondary to end-stage renal disease on Epogen seen by french drawer (7) Subtherapeutic international normalized ratio (INR): Code(s): R79.1 - Abnormal coagulation profile Status: Acute Assessment and Plan: Most likely secondary to noncompliance will resume warfarin and bridge the patient with heparin (8) Hyperkalemia: Code(s): E87.5 - Hyperkalemia Status: Acute Assessment and Plan: Most likely secondary to missed dialysis will monitor (9) Paroxysmal atrial fibrillation: Code(s): I48.0 - Paroxysmal atrial fibrillation Status: Chronic Assessment and Plan: Rate is controlled and stable (10) Obstructive sleep apnea on CPAP: Code(s): G47.33 - Obstructive sleep apnea (adult) (pediatric); Z99.89 - Dependence on other enabling machines and devices Status: Chronic Assessment and Plan: Will continue CPAP (11) Essential hypertension: Code(s): I10 - Essential (primary) hypertension Status: Chroni
[2020-03-28] MEDS: WARFARIN (*PBKC) 3 MG TABLET 6 MG PO (16:47)
[2020-03-28] MEDS: polyethylene glycoL 3350 17 GM POWD.PACK PO (17:04)
[2020-03-28] MEDS: DOCUSATE SODIUM 100 MG CAPSULE PO (20:00)
[2020-03-28] MEDS: FLUTICASONE PROPIONATE 0.05% NA SPR 16 GM BTL (*BKC) 2 SPRAY NASAL (20:00)
[2020-03-28] MEDS: LOSARTAN POTASSIUM 50 MG TABLET PO (20:00)
[2020-03-28] MEDS: METOPROLOL SUCCINATE EXT REL 50 MG TABCR PO (20:00)
[2020-03-29] VITALS (23 sets, daily range): BP systolic 122–164; BP diastolic 44–81; PULSE 50–72; RESP 16–22; TEMP 36.1–37; O2SAT 96–99
[2020-03-29] MEDS: GABAPENTIN 300 MG CAPSULE PO ×3 (05:26→21:00)
[2020-03-29 05:47] LABS: Hematocrit 27.7 % (42.0-52.0); Hemoglobin 9.2 g/dL (14.0-18.0); Mean Corpuscular HGB Conc 33.2 g/dl (32-36); Mean Corpuscular Hemoglobin 33.6 pg (26-34); Mean Corpuscular Volume 101.1 fl (80-100); Mean Platelet Volume 9.4 fl (7.4-10.4); Platelet Count Result 396 k/mm3 (150-375); Red Blood Count 2.74 M/mm3 (4.6-6.20); Red Cell Distribution Width 14.3 % (11.5-14.5); White Blood Count 8.9 K/mm3 (4.5-10.0)
[2020-03-29 05:51] LABS: INR 1.2; Prothrombin Time 16.2 Seconds (11.1-14.7)
[2020-03-29 05:53] LABS: Partial Thromboplastin Time 96.5 SECONDS (22.3-36.8)
[2020-03-29 05:57] LABS: Albumin Level 3.3 g/dL (3.5-5.1); Anion Gap 12 mmol/L (8-16); Blood Urea Nitrogen 59 mg/dL (9-20); Calcium 8.3 mg/dL (8.4-10.2); Carbon Dioxide 25 mmol/L (22-30); Chloride 97 mmol/L (98-107); Estimated CRCL calculation 8 ml/min; Estimated Glomerular Filt Rate 5; Glucose 126 mg/dL (75-110); Phosphorus 8.4 mg/dL (2.5-4.5); Potassium 5.3 mmol/L (3.4-5.0); Sodium 134 mmol/L (137-145)
[2020-03-29] MEDS: HEPARIN SOD/D5W 100 UNITS/ML 25,000 UNITS/250 ML BAG 16 UNITS IV CONT ×2 (06:57→21:38)
[2020-03-29] MEDS: DOCUSATE SODIUM 100 MG CAPSULE PO ×2 (08:11→20:38)
[2020-03-29] MEDS: AMIODARONE HCL 200 MG TABLET PO (08:11)
[2020-03-29] MEDS: ASPIRIN 81 MG ENTERIC TABLET PO (08:11)
[2020-03-29] MEDS: guaiFENesin 12 HR 600 MG TABCR PO ×2 (08:11→20:38)
[2020-03-29] MEDS: polyethylene glycoL 3350 17 GM POWD.PACK PO (08:16)
--- NOTE | 2020-03-29 11:03 | PC.NURSE ---
Patient to dialysis per bed.
[2020-03-29] MEDS: SODIUM CHLORIDE 0.9% IV 1,000 ML 999 ML IV CONT (11:25)
--- NOTE | 2020-03-29 12:54 | PM.PNNEP ---
Progress Note: A&P Assessment and Plan (1) End stage renal disease: Code(s): N18.6 - End stage renal disease Status: Chronic Assessment and Plan: on dialysis now. Electrolytes and BUN under good control fluid status improved (2) Acute on chronic respiratory failure with hypoxia: Code(s): J96.21 - Acute and chronic respiratory failure with hypoxia Status: Acute Assessment and Plan: due to #4 and likely dietary indiscretion the patient is still somewhat short of breath. (3) Hyperkalemia: Code(s): E87.5 - Hyperkalemia Status: Acute Assessment and Plan: Resolved (4) Fluid overload: Qualifiers: Hypervolemia type: unspecified Qualified Code(s): E87.70 - Fluid overload, unspecified Code(s): E87.70 - Fluid overload, unspecified Status: Acute Assessment and Plan: as noted by imaging studies to date (5) Anemia: Code(s): D64.9 - Anemia, unspecified Status: Chronic Assessment and Plan: due to ESRD Epogen with HD Hemoglobin stable in the low 9s Subjective Date/time seen: 03/29/20 12:54 Interval history: pt is lying in bed. He is on dialysis and tolerating it well. He was seen at 1220 p.m. Blood pressure is doing well. He feels less short of breath. He does not feel like it is the fluid. Review of Systems Cardiovascular: Cardiovascular: Reports no additional cardiovascular complaints Respiratory: Respiratory: Reports no additional respiratory complaints Gastrointestinal: Gastrointestinal: Reports no additional gastrointestinal complaints Genitourinary: Genitourinary: Reports no additional male genitourinary complaints Exam Narrative: Exam Narrative: WDWN in NAD skin no rash head ncat lungs clear bilaterally cor reg no rub abd BS+ nontender and soft ext Trace to 1+ edema. Objective Data Vital Signs Vital Signs: Vital Signs - 24 hr 03/28/20 14:00 03/28/20 14:31 03/28/20 19:49 Temperature 36.6 C 36.1 C L Pulse Rate 60 70 64 Respiratory Rate 16 12 17 Blood Pressure 150/68 H 169/61 H Pulse Oximetry 100 99 100 03/28/20 20:00 03/29/20 05:30 03/29/20 08:05 Temperature 36.1 C L Pulse Rate 64 60 Respiratory Rate 18 Blood Pressure 150/81 H Pulse Oximetry 96 96 03/29/20 08:11 03/29/20 11:01 03/29/20 11:10 Temperature 36.1 C L Pulse Rate 68 72 67 Respiratory Rate 16 Blood Pressure 164/75 H 151/69 H Pulse Oximetry 03/29/20 11:15 03/29/20 11:30 03/29/20 11:45 Temperature Pulse Rate 68 59 L 59 L Respiratory Rate Blood Pressure 163/79 H 151/68 H 156/71 H Pulse Oximetry 03/29/20 12:00 03/29/20 12:15 03/29/20 12:30 Temperature Pulse Rate 59 L 59 L 57 L Respiratory Rate Blood Pressure 139/65 153/70 H 140/67 Pulse Oximetry 03/29/20 12:45 Temperature Pulse Rate 56 L Respiratory Rate Blood Pressure 151/69 H Pulse Oximetry Intake/Output Intake/Output: Intake & Output 03/26/20 03/27/20 03/28/20 03/29/20 23:59 23:59 23:59 23:59 Intake Total 480 1630 1580 710 Output Total 4175 3600 [facility] -3695 -1970 1580 710 Meds/Results Medications: Active Medications Generic Name Dose Route Start Last Admin Trade Name Freq PRN Reason Stop Dose Admin Amiodarone HCl 200 mg 03/27/20 08:00 03/29/20 08:11 Amiodarone Hcl 200 Mg Tablet PO 200 mg DAILY@0800 LUDWIG Administration Aspirin 81 mg 03/27/20 09:00 03/29/20 08:11 Aspirin 81 Mg Enteric Tablet PO 81 mg DAILY LUDWIG Administration Docusate Sodium 100 mg 03/28/20 21:00 03/29/20 08:11 Docusate Sodium 100 Mg Capsule PO 100 mg Q12H LUDWIG Administration Fluticasone Propionate 2 spray 03/26/20 22:40 03/28/20 20:00 Fluticasone Propionate 0.05% Na Spr 16 Gm Btl (*Bkc) NASAL 2 spray HS LUDWIG Administration Gabapentin 300 mg 03/27/20 14:00 03/29/20 05:26 Gabapentin 300 Mg Capsule PO 300 mg Q8HR LUDWIG Adminis
--- NOTE | 2020-03-29 14:44 | PM.IMPN ---
Progress Note: A&P Assessment and Plan (1) Acute on chronic respiratory failure with hypoxia: Code(s): J96.21 - Acute and chronic respiratory failure with hypoxia Status: Acute Assessment and Plan: 03/29/20 14:44 Patient is 69-year-old male with history of end-stage renal renal disease on hemodialysis chronic respiratory failure on 3 L oxygen, proximal atrial fibrillation, obstructive sleep apnea, apparently patient had missed his dialysis and was progressively short of breath presented emergency department further evaluation, he was recently admitted to the hospital in January with shortness of breath and was found to have pulmonary emboli and being anticoagulated however patient is noncompliant and INR is subtherapeutic, patient states his symptoms were getting progressively worse he was not able to ambulate and was shaking therefore he presented emergency depart further evaluate, upon arrival CT scan of the chest showed bilateral large pleural effusion and a BNP of 35,000 suggesting patient was volume overloaded as patient had misses his dialysis on 03/25 due to Thanksgiving, communicated with physician practice coordinator and patient had HD on 03/26, and on 03/27 patient was seen by Dr. Cardenas d/w patient is noncompliant with fluids restriction and intake more fluids and becomes volume overloaded and needs frequent HD, will continue to monitor, CTA of the chest did not show any significant change in patient pulmonary emboli, Patient INR is subtherapautic. patient was on warfarin 4mg his home dose and on 03/28 increased warfarin to 6mg bridge him with heparin and monitor his INR, INR today in 1.2, today I spoke with his Warfarin clinic nurse and she has agree to continue 6mg and will monitor. patient will have HD today. (2) Acute on chronic diastolic heart failure: Code(s): I50.33 - Acute on chronic diastolic (congestive) heart failure Status: Acute Assessment and Plan: Patient is being diuresed as well as patient will have dialysis today (3) Fluid overload: Qualifiers: Hypervolemia type: unspecified Qualified Code(s): E87.70 - Fluid overload, unspecified Code(s): E87.70 - Fluid overload, unspecified Status: Acute Assessment and Plan: Patient with history of end-stage renal disease on hemodialysis patient missed dialysis yesterday resulting in volume overload patient will have dialysis today (4) Elevated troponin: Code(s): R77.8 - Other specified abnormalities of plasma proteins Status: Acute Assessment and Plan: Most likely secondary to end-stage renal disease and shortness of breath demand ischemia unlikely acute coronary syndrome (5) Leukocytosis: Code(s): D72.829 - Elevated white blood cell count, unspecified Status: Acute Assessment and Plan: Most likely secondary to stress will monitor (6) Chronic anemia: Code(s): D64.9 - Anemia, unspecified Status: Chronic Assessment and Plan: Secondary to end-stage renal disease on Epogen seen by physician practice coordinator (7) Subtherapeutic international normalized ratio (INR): Code(s): R79.1 - Abnormal coagulation profile Status: Acute Assessment and Plan: Most likely secondary to noncompliance will resume warfarin and bridge the patient with heparin (8) Hyperkalemia: Code(s): E87.5 - Hyperkalemia Status: Acute Assessment and Plan: Most likely secondary to missed dialysis will monitor (9) Paroxysmal atrial fibrillation: Code(s): I48.0 - Paroxysmal atrial fibrillation Status: Chronic Assessment and Plan: Rate is controlled and stable (10) Obstructive sleep apnea on CPAP: Code(s): G47.33 - Obstructive sleep apnea (adult) (pediatric); Z99.89 - Dependence on other enabling machines and devices Status: Chronic Assessment and Plan: Will continue CPAP (11) Essential hypertension: Code(s): I10 - Essential (primary)
--- NOTE | 2020-03-29 15:13 | PC.NURSE ---
Pt returned from dialysis per bed.
[2020-03-29] MEDS: WARFARIN (*PBKC) 3 MG TABLET 6 MG PO (17:59)
[2020-03-29] MEDS: LEVALBUTEROL HFA (*SP) 15 GM INHALER 2 PUFF INHALATION (18:01)
[2020-03-29] MEDS: METOPROLOL SUCCINATE EXT REL 50 MG TABCR PO (20:37)
[2020-03-29] MEDS: LOSARTAN POTASSIUM 50 MG TABLET PO (20:38)
[2020-03-29] MEDS: traMADol HCL (*CRX) 50 MG TABLET PO (20:43)
[2020-03-30] VITALS (8 sets, daily range): BP systolic 101–183; BP diastolic 42–78; PULSE 50–66; RESP 10–18; TEMP 36.1–36.3; O2SAT 92–100
[2020-03-30] MEDS: traMADol HCL (*CRX) 50 MG TABLET PO ×2 (02:43→21:28)
[2020-03-30] MEDS: GABAPENTIN 300 MG CAPSULE PO ×3 (05:01→21:28)
[2020-03-30 05:41] LABS: Hematocrit 28.5 % (42.0-52.0); Hemoglobin 9.3 g/dL (14.0-18.0); Mean Corpuscular HGB Conc 32.6 g/dl (32-36); Mean Corpuscular Hemoglobin 33.1 pg (26-34); Mean Corpuscular Volume 101.4 fl (80-100); Mean Platelet Volume 9.4 fl (7.4-10.4); Platelet Count Result 393 k/mm3 (150-375); Red Blood Count 2.81 M/mm3 (4.6-6.20); Red Cell Distribution Width 14.4 % (11.5-14.5); White Blood Count 8.8 K/mm3 (4.5-10.0)
[2020-03-30 05:50] LABS: INR 1.3; Prothrombin Time 16.4 Seconds (11.1-14.7)
[2020-03-30 05:56] LABS: Albumin Level 3.4 g/dL (3.5-5.1); Anion Gap 10 mmol/L (8-16); Blood Urea Nitrogen 33 mg/dL (9-20); Calcium 8.2 mg/dL (8.4-10.2); Carbon Dioxide 30 mmol/L (22-30); Chloride 95 mmol/L (98-107); Estimated CRCL calculation 13 ml/min; Estimated Glomerular Filt Rate 8; Glucose 122 mg/dL (75-110); Phosphorus 6.4 mg/dL (2.5-4.5); Potassium 4.8 mmol/L (3.4-5.0); Sodium 135 mmol/L (137-145)
[2020-03-30 06:33] LABS: Partial Thromboplastin Time 144.5 SECONDS (22.3-36.8)
[2020-03-30] MEDS: AMIODARONE HCL 200 MG TABLET PO (08:05)
[2020-03-30] MEDS: guaiFENesin 12 HR 600 MG TABCR PO ×2 (08:05→20:01)
[2020-03-30] MEDS: ASPIRIN 81 MG ENTERIC TABLET PO (08:05)
[2020-03-30] MEDS: HEPARIN SOD/D5W 100 UNITS/ML 25,000 UNITS/250 ML BAG 13 UNITS IV CONT (08:46)
--- NOTE | 2020-03-30 09:02 | PM.PNNEP ---
Progress Note: A&P Assessment and Plan (1) End stage renal disease: Code(s): N18.6 - End stage renal disease Status: Chronic Assessment and Plan: on dialysis every Sunday. Electrolytes and BUN under good control fluid status improved Chest x-ray shows little bit of infiltrate and improved pleural effusions. He has cardiomegaly. (2) Acute on chronic respiratory failure with hypoxia: Code(s): J96.21 - Acute and chronic respiratory failure with hypoxia Status: Acute Assessment and Plan: due to #4 and likely dietary indiscretion Shortness of breath is better. We had a long discussion. He has had several pulmonary emboli. And therefore his pulmonary status is chronically somewhat compromised. On chest x-ray is heart is enlarged. I fear that the continued large volume gains between treatments as an outpatient is causing the cardiomegaly and decreased elasticity of the heart. A few months ago he was getting lots of weight and having no symptoms from it. Sometimes he would have a little swelling. However now that he has decreased respiratory reserve and now decreased cardiac reserve these large weight gains come with more symptoms. So I fear he will be in the hospital more often with fluid overload unless he pays significantly more attention to the fluid intake and salt intake at home. If his heart gets any worse than he will constantly be in the hospital with shortness of breath. We discussed again techniques for fluid restriction and the need for salt restriction at home. (3) Hyperkalemia: Code(s): E87.5 - Hyperkalemia Status: Acute Assessment and Plan: Resolved (4) Fluid overload: Qualifiers: Hypervolemia type: unspecified Qualified Code(s): E87.70 - Fluid overload, unspecified Code(s): E87.70 - Fluid overload, unspecified Status: Acute Assessment and Plan: as noted by imaging studies to date Chest x-ray is better (5) Anemia: Code(s): D64.9 - Anemia, unspecified Status: Chronic Assessment and Plan: due to ESRD Epogen with HD Hemoglobin stable in the low 9s Subjective Date/time seen: 03/30/20 09:02 Interval history: pt is sitting at the side of the bed. His breathing seems to be a little bit better. Review of Systems Cardiovascular: Cardiovascular: Reports no additional cardiovascular complaints Respiratory: Respiratory: Reports no additional respiratory complaints Gastrointestinal: Gastrointestinal: Reports no additional gastrointestinal complaints Genitourinary: Genitourinary: Reports no additional male genitourinary complaints Exam Narrative: Exam Narrative: WDWN in NAD skin no rash or subcu nodules head ncat lungs clear bilaterally cor reg no rub abd BS+ nontender and soft ext Trace to edema. Objective Data Vital Signs Vital Signs: Vital Signs - 24 hr 03/29/20 11:01 03/29/20 11:10 03/29/20 11:15 Temperature 36.1 C L Pulse Rate 72 67 68 Respiratory Rate 16 Blood Pressure 164/75 H 151/69 H 163/79 H Pulse Oximetry 03/29/20 11:30 03/29/20 11:45 03/29/20 12:00 Temperature Pulse Rate 59 L 59 L 59 L Respiratory Rate Blood Pressure 151/68 H 156/71 H 139/65 Pulse Oximetry 03/29/20 12:15 03/29/20 12:30 03/29/20 12:45 Temperature Pulse Rate 59 L 57 L 56 L Respiratory Rate Blood Pressure 153/70 H 140/67 151/69 H Pulse Oximetry 03/29/20 13:02 03/29/20 13:15 03/29/20 13:30 Temperature Pulse Rate 58 L 57 L 57 L Respiratory Rate Blood Pressure 122/44 L 149/61 H 136/65 Pulse Oximetry 03/29/20 13:45 03/29/20 14:00 03/29/20 14:15 Temperature 36.3 C L Pulse Rate 57 L 67 60 Respiratory Rate 18 Blood Pressure 147/71 H 151/56 H 146/62 H Pulse Oximetry 99 03/29/20 14:30 03/29/20 14:40 03/29/20 14:49 Temperature 36.2 C L Pulse Rate 60 50 L 61 Respiratory Rate 18 Blood Pressure 14
[2020-03-30 14:51] LABS: Partial Thromboplastin Time 70.6 SECONDS (22.3-36.8)
--- NOTE | 2020-03-30 16:24 | PM.IMPN ---
Progress Note: A&P Assessment and Plan (1) Acute on chronic respiratory failure with hypoxia: Code(s): J96.21 - Acute and chronic respiratory failure with hypoxia Status: Acute Assessment and Plan: 03/30/20 16:24 Patient is 69-year-old male with history of end-stage renal renal disease on hemodialysis chronic respiratory failure on 3 L oxygen, proximal atrial fibrillation, obstructive sleep apnea, apparently patient had missed his dialysis and was progressively short of breath presented emergency department further evaluation, he was recently admitted to the hospital in January with shortness of breath and was found to have pulmonary emboli and being anticoagulated however patient is noncompliant and INR is subtherapeutic, patient states his symptoms were getting progressively worse he was not able to ambulate and was shaking therefore he presented emergency depart further evaluate, upon arrival CT scan of the chest showed bilateral large pleural effusion and a BNP of 35,000 suggesting patient was volume overloaded as patient had misses his dialysis on 03/25 due to Thanksgiving, communicated with process pumper and patient had HD on 03/26, and on 03/27 patient was seen by Dr. Cardenas d/w patient is noncompliant with fluids restriction and intake more fluids and becomes volume overloaded and needs frequent HD, will continue to monitor, CTA of the chest did not show any significant change in patient pulmonary emboli, Patient INR was subtherapautic. patient was on warfarin 4mg his home dose and on 03/28 increased warfarin to 6mg bridge him with heparin and monitor his INR, INR today in 1.3, will increase warfarin to 8mg daily and monitor, Today Dr. Cardenas had a long discussion with the patient to reduce fluids intake and patient is following instruction this will help with frequent hemodialysis. (2) Acute on chronic diastolic heart failure: Code(s): I50.33 - Acute on chronic diastolic (congestive) heart failure Status: Acute Assessment and Plan: Patient is being diuresed as well as patient will have dialysis today (3) Fluid overload: Qualifiers: Hypervolemia type: unspecified Qualified Code(s): E87.70 - Fluid overload, unspecified Code(s): E87.70 - Fluid overload, unspecified Status: Acute Assessment and Plan: Patient with history of end-stage renal disease on hemodialysis patient missed dialysis yesterday resulting in volume overload patient will have dialysis today (4) Elevated troponin: Code(s): R77.8 - Other specified abnormalities of plasma proteins Status: Acute Assessment and Plan: Most likely secondary to end-stage renal disease and shortness of breath demand ischemia unlikely acute coronary syndrome (5) Leukocytosis: Code(s): D72.829 - Elevated white blood cell count, unspecified Status: Acute Assessment and Plan: Most likely secondary to stress will monitor (6) Chronic anemia: Code(s): D64.9 - Anemia, unspecified Status: Chronic Assessment and Plan: Secondary to end-stage renal disease on Epogen seen by process pumper (7) Subtherapeutic international normalized ratio (INR): Code(s): R79.1 - Abnormal coagulation profile Status: Acute Assessment and Plan: Most likely secondary to noncompliance will resume warfarin and bridge the patient with heparin (8) Hyperkalemia: Code(s): E87.5 - Hyperkalemia Status: Acute Assessment and Plan: Most likely secondary to missed dialysis will monitor (9) Paroxysmal atrial fibrillation: Code(s): I48.0 - Paroxysmal atrial fibrillation Status: Chronic Assessment and Plan: Rate is controlled and stable (10) Obstructive sleep apnea on CPAP: Code(s): G47.33 - Obstructive sleep apnea (adult) (pediatric); Z99.89 - Dependence on other enabling machines and devices Status: Chronic Assessment and Plan: Will co
[2020-03-30] MEDS: WARFARIN (*PBKC) 4 MG TABLET 8 MG PO (18:07)
[2020-03-30] MEDS: FLUTICASONE PROPIONATE 0.05% NA SPR 16 GM BTL (*BKC) 2 SPRAY NASAL (20:00)
[2020-03-30] MEDS: LEVALBUTEROL HFA (*SP) 15 GM INHALER 2 PUFF INHALATION (20:00)
[2020-03-30] MEDS: DOCUSATE SODIUM 100 MG CAPSULE PO (20:01)
[2020-03-30] MEDS: LOSARTAN POTASSIUM 50 MG TABLET PO (20:01)
[2020-03-30] MEDS: METOPROLOL SUCCINATE EXT REL 50 MG TABCR PO (20:01)
[2020-03-30] MEDS: HEPARIN SODIUM 5,000 UNITS/ML VIAL 4000 UNITS IV PUSH (22:34)
[2020-03-31] VITALS (27 sets, daily range): BP systolic 110–176; BP diastolic 47–80; PULSE 54–74; RESP 12–20; TEMP 34.8–37; O2SAT 95–100
[2020-03-31] MEDS: HEPARIN SOD/D5W 100 UNITS/ML 25,000 UNITS/250 ML BAG 15 UNITS IV CONT (03:28)
[2020-03-31] MEDS: GABAPENTIN 300 MG CAPSULE PO ×3 (05:01→22:23)
[2020-03-31 06:11] LABS: INR 1.4; Prothrombin Time 17.3 Seconds (11.1-14.7)
[2020-03-31 06:14] LABS: Partial Thromboplastin Time 121.1 SECONDS (22.3-36.8)
[2020-03-31 06:16] LABS: Albumin Level 3.5 g/dL (3.5-5.1); Anion Gap 11 mmol/L (8-16); Blood Urea Nitrogen 46 mg/dL (9-20); Calcium 8.2 mg/dL (8.4-10.2); Carbon Dioxide 28 mmol/L (22-30); Chloride 95 mmol/L (98-107); Estimated CRCL calculation 11 ml/min; Estimated Glomerular Filt Rate 7; Glucose 122 mg/dL (75-110); Phosphorus 8.3 mg/dL (2.5-4.5); Potassium 5.1 mmol/L (3.4-5.0); Sodium 134 mmol/L (137-145)
[2020-03-31 06:28] LABS: Hematocrit 26.9 % (42.0-52.0); Hemoglobin 8.9 g/dL (14.0-18.0); Mean Corpuscular HGB Conc 33.1 g/dl (32-36); Mean Corpuscular Volume 99.6 fl (80-100); Mean Platelet Volume 9.6 fl (7.4-10.4); Platelet Count Result 404 k/mm3 (150-375); Red Cell Distribution Width 14.5 % (11.5-14.5); White Blood Count 8.1 K/mm3 (4.5-10.0)
[2020-03-31] MEDS: ASPIRIN 81 MG ENTERIC TABLET PO (08:44)
[2020-03-31] MEDS: DOCUSATE SODIUM 100 MG CAPSULE PO ×2 (08:44→22:23)
[2020-03-31] MEDS: guaiFENesin 12 HR 600 MG TABCR PO ×2 (08:44→22:23)
--- NOTE | 2020-03-31 11:30 | PC.NURSE ---
Per Delfino the dialysis nurse, continue to hold amioderone dose. Dialysis will be preformed later today.
[2020-03-31 12:40] LABS: Partial Thromboplastin Time 84.3 SECONDS (22.3-36.8)
[2020-03-31] MEDS: traMADol HCL (*CRX) 50 MG TABLET PO ×2 (16:10→22:24)
[2020-03-31] MEDS: WARFARIN (*PBKC) 4 MG TABLET 8 MG PO (16:10)
--- NOTE | 2020-03-31 16:19 | PM.IMPN ---
Progress Note: A&P Assessment and Plan (1) Acute on chronic respiratory failure with hypoxia: Code(s): J96.21 - Acute and chronic respiratory failure with hypoxia Status: Acute Assessment and Plan: 03/31/20 16:19 Patient is 69-year-old male with history of end-stage renal renal disease on hemodialysis chronic respiratory failure on 3 L oxygen, proximal atrial fibrillation, obstructive sleep apnea, apparently patient had missed his dialysis and was progressively short of breath presented emergency department further evaluation, he was recently admitted to the hospital in January with shortness of breath and was found to have pulmonary emboli and being anticoagulated however patient is noncompliant and INR is subtherapeutic, patient states his symptoms were getting progressively worse he was not able to ambulate and was shaking therefore he presented emergency depart further evaluate, upon arrival CT scan of the chest showed bilateral large pleural effusion and a BNP of 35,000 suggesting patient was volume overloaded as patient had misses his dialysis on 03/25 due to Thanksgiving, communicated with clip riveter and patient had HD on 03/26, and on 03/27 patient was seen by Dr. Cardenas d/w patient is noncompliant with fluids restriction and intake more fluids and becomes volume overloaded and needs frequent HD, will continue to monitor, CTA of the chest did not show any significant change in patient pulmonary emboli, Patient INR was subtherapautic. patient was on warfarin 4mg his home dose and on 03/28 increased warfarin to 6mg bridge him with heparin and monitor his INR, INR was on 03/30 was 1.3, increased warfarin to 8mg daily and monitor, today 03/31 INR is 1.4, will continue warfarin 8mg daily, patient will have scheduled dialysis today, will continue present management and follow-up on INR tomorrow and further recommendation to follow. (2) Acute on chronic diastolic heart failure: Code(s): I50.33 - Acute on chronic diastolic (congestive) heart failure Status: Acute Assessment and Plan: Patient is being diuresed as well as patient will have dialysis today (3) Fluid overload: Qualifiers: Hypervolemia type: unspecified Qualified Code(s): E87.70 - Fluid overload, unspecified Code(s): E87.70 - Fluid overload, unspecified Status: Acute Assessment and Plan: Patient with history of end-stage renal disease on hemodialysis patient missed dialysis yesterday resulting in volume overload patient will have dialysis today (4) Elevated troponin: Code(s): R77.8 - Other specified abnormalities of plasma proteins Status: Acute Assessment and Plan: Most likely secondary to end-stage renal disease and shortness of breath demand ischemia unlikely acute coronary syndrome (5) Leukocytosis: Code(s): D72.829 - Elevated white blood cell count, unspecified Status: Acute Assessment and Plan: Most likely secondary to stress will monitor (6) Chronic anemia: Code(s): D64.9 - Anemia, unspecified Status: Chronic Assessment and Plan: Secondary to end-stage renal disease on Epogen seen by clip riveter (7) Subtherapeutic international normalized ratio (INR): Code(s): R79.1 - Abnormal coagulation profile Status: Acute Assessment and Plan: Most likely secondary to noncompliance will resume warfarin and bridge the patient with heparin (8) Hyperkalemia: Code(s): E87.5 - Hyperkalemia Status: Acute Assessment and Plan: Most likely secondary to missed dialysis will monitor (9) Paroxysmal atrial fibrillation: Code(s): I48.0 - Paroxysmal atrial fibrillation Status: Chronic Assessment and Plan: Rate is controlled and stable (10) Obstructive sleep apnea on CPAP: Code(s): G47.33 - Obstructive sleep apnea (adult) (pediatric); Z99.89 - Dependence on other enabling machines and devices Status:
--- NOTE | 2020-03-31 18:16 | PM.PNNEP ---
Progress Note: A&P Assessment and Plan (1) End stage renal disease: Code(s): N18.6 - End stage renal disease Status: Chronic Assessment and Plan: on dialysis every Sunday. Electrolytes and BUN under good control fluid status improved. More fluid off today (2) Acute on chronic respiratory failure with hypoxia: Code(s): J96.21 - Acute and chronic respiratory failure with hypoxia Status: Acute Assessment and Plan: due to #4 and likely dietary indiscretion Shortness of breath is better. (3) Hyperkalemia: Code(s): E87.5 - Hyperkalemia Status: Acute Assessment and Plan: Resolved (4) Fluid overload: Qualifiers: Hypervolemia type: unspecified Qualified Code(s): E87.70 - Fluid overload, unspecified Code(s): E87.70 - Fluid overload, unspecified Status: Acute Assessment and Plan: as noted by imaging studies to date Chest x-ray is better (5) Anemia: Code(s): D64.9 - Anemia, unspecified Status: Chronic Assessment and Plan: due to ESRD Epogen with HD Hemoglobin stable in the low 9s Subjective Date/time seen: 03/31/20 18:16 Interval history: pt is lying in bed. On dialysis tolerating it well. He was seen at 5:45 p.m. Exam Narrative: Exam Narrative: WDWN in NAD skin no rash or subcu nodules head ncat lungs clear bilaterally cor reg no rub abd BS+ nontender and soft ext Trace to edema. Objective Data Vital Signs Vital Signs: Vital Signs - 24 hr 03/30/20 20:00 03/30/20 20:01 03/30/20 20:12 Temperature 36.3 C L Pulse Rate 66 66 66 Respiratory Rate 18 18 18 Blood Pressure 183/78 H Pulse Oximetry 100 100 03/30/20 23:08 03/31/20 03:27 03/31/20 05:23 Temperature 36.4 C Pulse Rate 50 L 54 L 54 L Respiratory Rate 10 L 12 18 Blood Pressure 110/47 L Pulse Oximetry 92 97 100 03/31/20 08:45 03/31/20 13:00 03/31/20 16:36 Temperature 36.3 C L 36.8 C Pulse Rate 62 74 Respiratory Rate 18 20 Blood Pressure 150/66 H 158/80 H Pulse Oximetry 95 97 03/31/20 16:50 03/31/20 17:01 03/31/20 17:15 Temperature Pulse Rate 70 70 58 L Respiratory Rate Blood Pressure 139/69 152/76 H 127/57 L Pulse Oximetry 03/31/20 17:30 03/31/20 17:45 03/31/20 18:00 Temperature Pulse Rate 59 L 60 67 Respiratory Rate Blood Pressure 142/66 H 135/58 L 128/52 L Pulse Oximetry Intake/Output Intake/Output: Intake & Output 03/28/20 03/29/20 03/30/20 03/31/20 23:59 23:59 23:59 23:59 Intake Total 1580 1200 1189 1351 Output Total 3300 325 1000 Balance 1580 -2100 864 351 Meds/Results Medications: Active Medications Generic Name Dose Route Start Last Admin Trade Name Freq PRN Reason Stop Dose Admin Amiodarone HCl 200 mg 03/27/20 08:00 03/30/20 08:05 Amiodarone Hcl 200 Mg Tablet PO 200 mg DAILY@0800 LUDWIG Administration Aspirin 81 mg 03/27/20 09:00 03/31/20 08:44 Aspirin 81 Mg Enteric Tablet PO 81 mg DAILY LUDWIG Administration Docusate Sodium 100 mg 03/28/20 21:00 03/31/20 08:44 Docusate Sodium 100 Mg Capsule PO 100 mg Q12H LUDWIG Administration Fluticasone Propionate 2 spray 03/26/20 22:40 03/30/20 20:00 Fluticasone Propionate 0.05% Na Spr 16 Gm Btl (*Bkc) NASAL 2 spray HS LUDWIG Administration Gabapentin 300 mg 03/27/20 14:00 03/31/20 13:18 Gabapentin 300 Mg Capsule PO 300 mg Q8HR LUDWIG Administration Guaifenesin 600 mg 03/28/20 10:00 03/31/20 08:44 Guaifenesin 12 Hr 600 Mg Tabcr PO 600 mg Q12HR LUDWIG Administration Heparin Sodium (Porcine) 4,000 units 03/26/20 06:12 03/30/20 22:34 Heparin Sodium 5,000 Units/Ml Vial IV PUSH 4,000 units PRN PRN Administration aPTT less than 55 seconds Heparin Sodium (Porcine) 4,000 units 03/26/20 06:12 03/27/20 23:16 Heparin Sodium 5,000 Units/Ml Vial IV PUSH 4,000 units PRN PRN Administration aPTT 55 - 7
[2020-03-31 19:34] LABS: Partial Thromboplastin Time 77.7 SECONDS (22.3-36.8)
[2020-03-31] MEDS: AMIODARONE HCL 200 MG TABLET PO (22:22)
[2020-03-31] MEDS: METOPROLOL SUCCINATE EXT REL 50 MG TABCR PO (22:23)
[2020-03-31] MEDS: LOSARTAN POTASSIUM 50 MG TABLET PO (22:23)
[2020-03-31] MEDS: LEVALBUTEROL HFA (*SP) 15 GM INHALER 2 PUFF INHALATION (22:23)
[2020-03-31] MEDS: FLUTICASONE PROPIONATE 0.05% NA SPR 16 GM BTL (*BKC) 2 SPRAY NASAL (22:24)
[2020-03-31] MEDS: HEPARIN SOD/D5W 100 UNITS/ML 25,000 UNITS/250 ML BAG 13 UNITS IV CONT (22:25)
--- NOTE | 2020-03-31 22:36 | PC.NURSE ---
Pt returned from dialysis in bed at 2114.
[2020-04-01] VITALS (10 sets, daily range): BP systolic 106–176; BP diastolic 53–72; PULSE 54–76; RESP 15–20; TEMP 36.4–36.6; O2SAT 94–100
[2020-04-01 05:45] LABS: Hematocrit 25.9 % (42.0-52.0); Hemoglobin 8.7 g/dL (14.0-18.0); Mean Corpuscular HGB Conc 33.6 g/dl (32-36); Mean Corpuscular Volume 98.1 fl (80-100); Mean Platelet Volume 9.5 fl (7.4-10.4); Platelet Count Result 367 k/mm3 (150-375); Red Blood Count 2.64 M/mm3 (4.6-6.20); Red Cell Distribution Width 14.3 % (11.5-14.5); White Blood Count 7.2 K/mm3 (4.5-10.0)
[2020-04-01 06:03] LABS: INR 1.5; Prothrombin Time 18.8 Seconds (11.1-14.7)
[2020-04-01 06:05] LABS: Partial Thromboplastin Time 76.2 SECONDS (22.3-36.8)
[2020-04-01 06:06] LABS: Albumin Level 3.3 g/dL (3.5-5.1); Anion Gap 9 mmol/L (8-16); Blood Urea Nitrogen 29 mg/dL (9-20); Carbon Dioxide 32 mmol/L (22-30); Chloride 94 mmol/L (98-107); Estimated CRCL calculation 13 ml/min; Estimated Glomerular Filt Rate 10; Glucose 107 mg/dL (75-110); Phosphorus 6.2 mg/dL (2.5-4.5); Potassium 4.3 mmol/L (3.4-5.0); Sodium 135 mmol/L (137-145)
[2020-04-01] MEDS: GABAPENTIN 300 MG CAPSULE PO ×3 (06:18→21:08)
[2020-04-01] MEDS: guaiFENesin 12 HR 600 MG TABCR PO ×2 (08:02→21:06)
[2020-04-01] MEDS: DOCUSATE SODIUM 100 MG CAPSULE PO ×2 (08:03→21:08)
--- NOTE | 2020-04-01 08:13 | PC.NURSE ---
call to pharmacy, missing a.m dose of amiodarone and asa will not scan
[2020-04-01] MEDS: AMIODARONE HCL 200 MG TABLET PO (09:06)
[2020-04-01] MEDS: ASPIRIN 81 MG ENTERIC TABLET PO (09:06)
--- NOTE | 2020-04-01 12:36 | PM.IMPN ---
Progress Note: A&P Assessment and Plan (1) Acute on chronic respiratory failure with hypoxia: Code(s): J96.21 - Acute and chronic respiratory failure with hypoxia Status: Acute Assessment and Plan: 04/01/20 12:36 Patient is 69-year-old male with history of end-stage renal renal disease on hemodialysis chronic respiratory failure on 3 L oxygen, proximal atrial fibrillation, obstructive sleep apnea, apparently patient had missed his dialysis and was progressively short of breath presented emergency department further evaluation, he was recently admitted to the hospital in January with shortness of breath and was found to have pulmonary emboli and being anticoagulated however patient is noncompliant and INR is subtherapeutic, patient states his symptoms were getting progressively worse he was not able to ambulate and was shaking therefore he presented emergency depart further evaluate, upon arrival CT scan of the chest showed bilateral large pleural effusion and a BNP of 35,000 suggesting patient was volume overloaded as patient had misses his dialysis on 03/25 due to Thanksgiving, communicated with [employer] and patient had HD on 03/26, and on 03/27 patient was seen by Dr. Cardenas d/w patient is noncompliant with fluids restriction and intake more fluids and becomes volume overloaded and needs frequent HD, will continue to monitor, CTA of the chest did not show any significant change in patient pulmonary emboli, Patient INR was subtherapautic. patient was on warfarin 4mg his home dose and on 03/28 increased warfarin to 6mg bridge him with heparin and monitor his INR, INR was on 03/30 was 1.3, increased warfarin to 8mg daily and monitor, 03/31 INR was 1.4, continued warfarin 8mg daily and today 04/01 there is slight improvement in his INR to 1.5, will increase warfarin to 12mg daily, will monitor patient will have scheduled dialysis tomorrow, will continue present management and follow-up on INR tomorrow and further recommendation to follow. Patient is completely independent his walking in the corridor (2) Acute on chronic diastolic heart failure: Code(s): I50.33 - Acute on chronic diastolic (congestive) heart failure Status: Acute Assessment and Plan: Patient is being diuresed as well as patient will have dialysis today (3) Fluid overload: Qualifiers: Hypervolemia type: unspecified Qualified Code(s): E87.70 - Fluid overload, unspecified Code(s): E87.70 - Fluid overload, unspecified Status: Acute Assessment and Plan: Patient with history of end-stage renal disease on hemodialysis patient missed dialysis yesterday resulting in volume overload patient will have dialysis today (4) Elevated troponin: Code(s): R77.8 - Other specified abnormalities of plasma proteins Status: Acute Assessment and Plan: Most likely secondary to end-stage renal disease and shortness of breath demand ischemia unlikely acute coronary syndrome (5) Leukocytosis: Code(s): D72.829 - Elevated white blood cell count, unspecified Status: Acute Assessment and Plan: Most likely secondary to stress will monitor (6) Chronic anemia: Code(s): D64.9 - Anemia, unspecified Status: Chronic Assessment and Plan: Secondary to end-stage renal disease on Epogen seen by [employer] (7) Subtherapeutic international normalized ratio (INR): Code(s): R79.1 - Abnormal coagulation profile Status: Acute Assessment and Plan: Most likely secondary to noncompliance will resume warfarin and bridge the patient with heparin (8) Hyperkalemia: Code(s): E87.5 - Hyperkalemia Status: Acute Assessment and Plan: Most likely secondary to missed dialysis will monitor (9) Paroxysmal atrial fibrillation: Code(s): I48.0 - Paroxysmal atrial fibrillation Status: Chronic Assessment and Plan: Rate is controlled and stable (10) Obstr
--- NOTE | 2020-04-01 13:16 | PM.PNNEP ---
Progress Note: A&P Assessment and Plan (1) End stage renal disease: Code(s): N18.6 - End stage renal disease Status: Chronic Assessment and Plan: on dialysis every Sunday. Electrolytes and BUN under good control fluid status improved. More fluid off today he looks as good as I have ever seen him today. (2) Acute on chronic respiratory failure with hypoxia: Code(s): J96.21 - Acute and chronic respiratory failure with hypoxia Status: Acute Assessment and Plan: due to #4 and likely dietary indiscretion Shortness of breath is Doing well. (3) Hyperkalemia: Code(s): E87.5 - Hyperkalemia Status: Acute Assessment and Plan: Resolved (4) Fluid overload: Qualifiers: Hypervolemia type: unspecified Qualified Code(s): E87.70 - Fluid overload, unspecified Code(s): E87.70 - Fluid overload, unspecified Status: Acute Assessment and Plan: as noted by imaging studies to date Chest x-ray is better (5) Anemia: Code(s): D64.9 - Anemia, unspecified Status: Chronic Assessment and Plan: due to ESRD Epogen with HD Hemoglobin stable Around 9 Subjective Date/time seen: 04/01/20 13:16 Interval history: pt is Sitting at the side of the bed. He had dialysis yesterday and did well for the rest of the treatment. Review of Systems Cardiovascular: Cardiovascular: Reports no additional cardiovascular complaints Respiratory: Respiratory: Reports no additional respiratory complaints Gastrointestinal: Gastrointestinal: Reports no additional gastrointestinal complaints Genitourinary: Genitourinary: Reports no additional male genitourinary complaints Exam Narrative: Exam Narrative: WDWN in NAD skin no rash or subcu nodules head ncat lungs clear bilaterally cor reg no rub Or gallop abd BS+ nontender and soft ext Trace edema. Objective Data Vital Signs Vital Signs: Vital Signs - 24 hr 03/31/20 16:36 03/31/20 16:50 03/31/20 17:01 Temperature 36.8 C Pulse Rate 74 70 70 Respiratory Rate 20 Blood Pressure 158/80 H 139/69 152/76 H Pulse Oximetry 03/31/20 17:15 03/31/20 17:30 03/31/20 17:45 Temperature Pulse Rate 58 L 59 L 60 Respiratory Rate Blood Pressure 127/57 L 142/66 H 135/58 L Pulse Oximetry 03/31/20 18:00 03/31/20 18:15 03/31/20 18:30 Temperature Pulse Rate 67 60 60 Respiratory Rate Blood Pressure 128/52 L 141/62 H 143/58 H Pulse Oximetry 03/31/20 18:45 03/31/20 19:00 03/31/20 19:15 Temperature Pulse Rate 63 62 62 Respiratory Rate Blood Pressure 144/62 H 141/64 H 148/70 H Pulse Oximetry 03/31/20 19:30 03/31/20 19:35 03/31/20 19:45 Temperature Pulse Rate 63 67 64 Respiratory Rate Blood Pressure 148/72 H 144/70 H 163/66 H Pulse Oximetry 03/31/20 20:07 03/31/20 20:16 03/31/20 20:24 Temperature 36.9 C Pulse Rate 65 67 65 Respiratory Rate 20 Blood Pressure 154/67 H 173/80 H 163/72 H Pulse Oximetry 03/31/20 21:00 03/31/20 22:03 03/31/20 22:08 Temperature 36.4 C L Pulse Rate 70 70 Respiratory Rate 17 20 Blood Pressure 176/78 H Pulse Oximetry 98 98 98 03/31/20 22:22 03/31/20 22:23 04/01/20 04:37 Temperature 36.4 C Pulse Rate 70 70 54 L Respiratory Rate 16 Blood Pressure 106/68 Pulse Oximetry 100 04/01/20 07:45 04/01/20 08:06 04/01/20 09:06 Temperature Pulse Rate 68 68 68 Respiratory Rate 16 16 Blood Pressure 138/64 Pulse Oximetry 100 100 04/01/20 09:36 Temperature Pulse Rate 73 Respiratory Rate 20 Blood Pressure Pulse Oximetry 97 Intake/Output Intake/Output: Intake & Output 03/29/20 03/30/20 03/31/20 04/01/20 23:59 23:59 23:59 23:59 Intake Total 1200 1189 1601 480 Output Total [phone] 350 Igrbrsl -2915 824 -8192 130 Meds/Results Medications: Active Medications Generic Name Dose Route Start Last Admin
[2020-04-01] MEDS: HEPARIN SOD/D5W 100 UNITS/ML 25,000 UNITS/250 ML BAG 13 UNITS IV CONT (18:03)
[2020-04-01] MEDS: WARFARIN (*PBKC) 4 MG TABLET 12 MG PO (18:03)
[2020-04-01] MEDS: LOSARTAN POTASSIUM 50 MG TABLET PO (21:06)
[2020-04-01] MEDS: FLUTICASONE PROPIONATE 0.05% NA SPR 16 GM BTL (*BKC) 2 SPRAY NASAL (21:06)
[2020-04-01] MEDS: METOPROLOL SUCCINATE EXT REL 50 MG TABCR PO (21:07)
[2020-04-01] MEDS: LEVALBUTEROL HFA (*SP) 15 GM INHALER 2 PUFF INHALATION (21:08)
[2020-04-01] MEDS: traMADol HCL (*CRX) 50 MG TABLET PO (21:16)
[2020-04-02] VITALS (30 sets, daily range): BP systolic 111–161; BP diastolic 44–71; PULSE 52–72; RESP 10–18; TEMP 36.1–37; O2SAT 91–98
[2020-04-02] MEDS: GABAPENTIN 300 MG CAPSULE PO ×3 (05:12→22:08)
[2020-04-02 06:03] LABS: Hematocrit 25.4 % (42.0-52.0); Hemoglobin 8.5 g/dL (14.0-18.0); Mean Corpuscular HGB Conc 33.5 g/dl (32-36); Mean Corpuscular Hemoglobin 33.2 pg (26-34); Mean Corpuscular Volume 99.2 fl (80-100); Mean Platelet Volume 9.5 fl (7.4-10.4); Platelet Count Result 357 k/mm3 (150-375); Red Blood Count 2.56 M/mm3 (4.6-6.20); Red Cell Distribution Width 14.5 % (11.5-14.5); White Blood Count 7.6 K/mm3 (4.5-10.0)
[2020-04-02 06:10] LABS: Albumin Level 3.4 g/dL (3.5-5.1); Anion Gap 11 mmol/L (8-16); Blood Urea Nitrogen 48 mg/dL (9-20); Calcium 8.2 mg/dL (8.4-10.2); Carbon Dioxide 29 mmol/L (22-30); Chloride 93 mmol/L (98-107); Estimated CRCL calculation 11 ml/min; Estimated Glomerular Filt Rate 7; Glucose 116 mg/dL (75-110); Phosphorus 7.9 mg/dL (2.5-4.5); Potassium 4.9 mmol/L (3.4-5.0); Sodium 133 mmol/L (137-145)
[2020-04-02 06:16] LABS: Partial Thromboplastin Time 29.7 SECONDS (22.3-36.8)
[2020-04-02 06:21] LABS: INR 1.5; Prothrombin Time 18.7 Seconds (11.1-14.7)
[2020-04-02] MEDS: DOCUSATE SODIUM 100 MG CAPSULE PO ×2 (09:13→22:10)
[2020-04-02] MEDS: ASPIRIN 81 MG ENTERIC TABLET PO (09:13)
[2020-04-02] MEDS: guaiFENesin 12 HR 600 MG TABCR PO ×2 (09:13→22:09)
[2020-04-02] MEDS: AMIODARONE HCL 200 MG TABLET PO (09:15)
[2020-04-02] MEDS: HEPARIN SOD/D5W 100 UNITS/ML 25,000 UNITS/250 ML BAG 13 UNITS IV CONT (11:13)
[2020-04-02] MEDS: SODIUM CHLORIDE NASAL GEL 14.1 GM 1 APPLIC NASAL (11:18)
--- NOTE | 2020-04-02 11:45 | PCNWS ---
Weekly nutritional screen. Patient is tolerating current diet with adequate intake. No weight loss reported. No nutritional needs at this time.
--- NOTE | 2020-04-02 13:01 | PM.PNNEP ---
Progress Note: A&P Assessment and Plan (1) End stage renal disease: Code(s): N18.6 - End stage renal disease Status: Chronic Assessment and Plan: on dialysis every Sunday. Electrolytes and BUN under good control fluid status improved. More fluid off today (2) Acute on chronic respiratory failure with hypoxia: Code(s): J96.21 - Acute and chronic respiratory failure with hypoxia Status: Acute Assessment and Plan: due to #4 and likely dietary indiscretion Shortness of breath is Doing well. (3) Hyperkalemia: Code(s): E87.5 - Hyperkalemia Status: Acute Assessment and Plan: Resolved (4) Fluid overload: Qualifiers: Hypervolemia type: unspecified Qualified Code(s): E87.70 - Fluid overload, unspecified Code(s): E87.70 - Fluid overload, unspecified Status: Acute Assessment and Plan: as noted by imaging studies to date Chest x-ray is better (5) Anemia: Code(s): D64.9 - Anemia, unspecified Status: Chronic Assessment and Plan: due to ESRD Epogen with HD Hemoglobin stable Around 9 Subjective Date/time seen: 04/02/20 13:01 Interval history: pt is Sitting at the side of the bed. He ate a good lunch. Will get dialysis this afternoon Exam Narrative: Exam Narrative: WDWN in NAD skin no rash or subcu nodules head ncat lungs clear bilaterally cor reg no rub Or gallop abd BS+ nontender and soft ext Trace edema. Objective Data Vital Signs Vital Signs: Vital Signs - 24 hr 04/01/20 15:45 04/01/20 19:47 04/01/20 21:07 Temperature 36.4 C L 36.6 C Pulse Rate 58 L 76 76 Respiratory Rate 16 16 Blood Pressure 124/53 L 176/72 H Pulse Oximetry 96 94 04/01/20 21:11 04/01/20 23:08 04/02/20 03:55 Temperature Pulse Rate 68 52 L Respiratory Rate 15 10 L Blood Pressure Pulse Oximetry 94 100 96 04/02/20 05:09 04/02/20 07:50 04/02/20 08:00 Temperature 36.1 C L Pulse Rate 52 L Respiratory Rate 17 Blood Pressure 111/47 L Pulse Oximetry 98 91 96 04/02/20 09:15 Temperature Pulse Rate 58 L Respiratory Rate Blood Pressure Pulse Oximetry Intake/Output Intake/Output: Intake & Output 03/30/20 03/31/20 04/01/20 04/02/20 23:59 23:59 23:59 23:59 Intake Total 1189 1601 970 805 Output Total 325 4424 450 100 Balance 864 -2037 397 705 Meds/Results Medications: Active Medications Generic Name Dose Route Start Last Admin Trade Name Freq PRN Reason Stop Dose Admin Amiodarone HCl 200 mg 03/27/20 08:00 04/02/20 09:15 Amiodarone Hcl 200 Mg Tablet PO 200 mg DAILY@0800 LUDWIG Administration Aspirin 81 mg 03/27/20 09:00 04/02/20 09:13 Aspirin 81 Mg Enteric Tablet PO 81 mg DAILY LUDWIG Administration Docusate Sodium 100 mg 03/28/20 21:00 04/02/20 09:13 Docusate Sodium 100 Mg Capsule PO 100 mg Q12H LUDWIG Administration Epoetin Pablo-epbx 10,000 units 04/02/20 09:00 Epoetin Pablo-Epbx 10,000 Units/Ml Vial IV PUSH MOWEFR LUDWIG Fluticasone Propionate 2 spray 03/26/20 22:40 04/01/20 21:06 Fluticasone Propionate 0.05% Na Spr 16 Gm Btl (*Bkc) NASAL 2 spray HS LUDWIG Administration Gabapentin 300 mg 03/27/20 14:00 04/02/20 05:12 Gabapentin 300 Mg Capsule PO 300 mg Q8HR LUDWIG Administration Guaifenesin 600 mg 03/28/20 10:00 04/02/20 09:13 Guaifenesin 12 Hr 600 Mg Tabcr PO 600 mg Q12HR LUDWIG Administration Heparin Sodium (Porcine) 4,000 units 03/26/20 06:12 03/30/20 22:34 Heparin Sodium 5,000 Units/Ml Vial IV PUSH 4,000 units PRN PRN Administration aPTT less than 55 seconds Heparin Sodium (Porcine) 4,000 units 03/26/20 06:12 03/27/20 23:16 Heparin Sodium 5,000 Units/Ml Vial IV PUSH 4,000 units PRN PRN Administration aPTT 55 - 70 seconds Albumin Human 50 mls @ 999 mls/hr 03/26/20 14:02 Albutein IVPB 04/25/20 14:03 Q10M PRN
--- NOTE | 2020-04-02 16:15 | PM.IMPN ---
Progress Note: A&P Assessment and Plan (1) Acute on chronic respiratory failure with hypoxia: Code(s): J96.21 - Acute and chronic respiratory failure with hypoxia Status: Acute Assessment and Plan: 04/02/20 16:15 Patient is 69-year-old male with history of end-stage renal renal disease on hemodialysis chronic respiratory failure on 3 L oxygen, proximal atrial fibrillation, obstructive sleep apnea, apparently patient had missed his dialysis and was progressively short of breath presented emergency department further evaluation, he was recently admitted to the hospital in January with shortness of breath and was found to have pulmonary emboli and being anticoagulated however patient is noncompliant and INR is subtherapeutic, patient states his symptoms were getting progressively worse he was not able to ambulate and was shaking therefore he presented emergency depart further evaluate, upon arrival CT scan of the chest showed bilateral large pleural effusion and a BNP of 35,000 suggesting patient was volume overloaded as patient had misses his dialysis on 03/25 due to Thanksgiving, communicated with docking pilot and patient had HD on 03/26, and on 03/27 patient was seen by Dr. Cardenas d/w patient is noncompliant with fluids restriction and intake more fluids and becomes volume overloaded and needs frequent HD, will continue to monitor, CTA of the chest did not show any significant change in patient pulmonary emboli, Patient INR was subtherapautic. patient was on warfarin 4mg his home dose and on 03/28 increased warfarin to 6mg bridge him with heparin and monitor his INR, INR was on 03/30 was 1.3, increased warfarin to 8mg daily and monitor, 03/31 INR was 1.4, continued warfarin 8mg daily and on 04/01 there was slight improvement in his INR to 1.5, and plan was increase Warfarin 12mg and continue Heparin however late on 04/01 evening patient developed nosebleed most likely due to irritation from oxygen nasal cannula, we stopped heparin drip and patient was not given Coumadin on 04/01, today on 04/02 will apply ointment to nasal mucosa and saline spray for his nose will resume heparin and give him warfarin 12 mg tonight will recheck INR in the morning and further recommendation to follow, patient denies any complaint of chest pain shortness of breath palpitation fever or chills, denies any bleeding this morning (2) Acute on chronic diastolic heart failure: Code(s): I50.33 - Acute on chronic diastolic (congestive) heart failure Status: Acute Assessment and Plan: Patient is being diuresed as well as patient will have dialysis today (3) Fluid overload: Qualifiers: Hypervolemia type: unspecified Qualified Code(s): E87.70 - Fluid overload, unspecified Code(s): E87.70 - Fluid overload, unspecified Status: Acute Assessment and Plan: Patient with history of end-stage renal disease on hemodialysis patient missed dialysis yesterday resulting in volume overload patient will have dialysis today (4) Elevated troponin: Code(s): R77.8 - Other specified abnormalities of plasma proteins Status: Acute Assessment and Plan: Most likely secondary to end-stage renal disease and shortness of breath demand ischemia unlikely acute coronary syndrome (5) Leukocytosis: Code(s): D72.829 - Elevated white blood cell count, unspecified Status: Acute Assessment and Plan: Most likely secondary to stress will monitor (6) Chronic anemia: Code(s): D64.9 - Anemia, unspecified Status: Chronic Assessment and Plan: Secondary to end-stage renal disease on Epogen seen by docking pilot (7) Subtherapeutic international normalized ratio (INR): Code(s): R79.1 - Abnormal coagulation profile Status: Acute Assessment and Plan: Most likely secondary to noncompliance will resume warfarin and bridge the patient with heparin (8) Hyperkalemia: Code(s): E8
[2020-04-02 18:26] LABS: INR 1.6; Prothrombin Time 19.6 Seconds (11.1-14.7)
[2020-04-02] MEDS: WARFARIN (*PBKC) 4 MG TABLET 12 MG PO (18:55)
[2020-04-02] MEDS: LEVALBUTEROL HFA (*SP) 15 GM INHALER 2 PUFF INHALATION (21:43)
[2020-04-02] MEDS: FLUTICASONE PROPIONATE 0.05% NA SPR 16 GM BTL (*BKC) 2 SPRAY NASAL (22:08)
[2020-04-02] MEDS: METOPROLOL SUCCINATE EXT REL 50 MG TABCR PO (22:09)
[2020-04-02] MEDS: LOSARTAN POTASSIUM 50 MG TABLET PO (22:09)
[2020-04-02] MEDS: traMADol HCL (*CRX) 50 MG TABLET PO (22:13)
[2020-04-03 05:15] VITALS: BP 138/44; PULSE 63; RESP 16; TEMP 36.5; O2SAT 99
[2020-04-03 05:47] LABS: INR 1.9; Prothrombin Time 22.3 Seconds (11.1-14.7)
[2020-04-03 05:49] LABS: Partial Thromboplastin Time 106.1 SECONDS (22.3-36.8)
[2020-04-03] MEDS: GABAPENTIN 300 MG CAPSULE PO (06:02)
[2020-04-03] MEDS: HEPARIN SOD/D5W 100 UNITS/ML 25,000 UNITS/250 ML BAG 11 UNITS IV CONT (06:03)
[2020-04-03 08:05] VITALS: O2SAT 95
[2020-04-03 08:08] VITALS: PULSE 59
[2020-04-03] MEDS: DOCUSATE SODIUM 100 MG CAPSULE PO (08:08)
[2020-04-03] MEDS: guaiFENesin 12 HR 600 MG TABCR PO (08:08)
[2020-04-03] MEDS: AMIODARONE HCL 200 MG TABLET PO (08:08)
[2020-04-03] MEDS: ASPIRIN 81 MG ENTERIC TABLET PO (08:08)
--- NOTE | 2020-04-03 09:22 | P.DS_ITS ---
DS: Admitting Diagnosis Admitting Diagnosis Admitting Diagnosis: Fluid Overload,CHF, ESRD, Tropnin Leak DS: Discharge Diagnosis Discharge Diagnosis (1) End stage renal disease: Code(s): N18.6 - End stage renal disease Status: Chronic (2) Subtherapeutic international normalized ratio (INR): Code(s): R79.1 - Abnormal coagulation profile Status: Acute (3) Anemia: Code(s): D64.9 - Anemia, unspecified Status: Chronic (4) Fluid overload: Qualifiers: Hypervolemia type: unspecified Qualified Code(s): E87.70 - Fluid overload, unspecified Code(s): E87.70 - Fluid overload, unspecified Status: Acute DS: Summary Time Spent with Patient Time attestation: Total time spent providing and/or coordinating discharge serv ices: DS: Data Data Completed and Pending Labs on day of discharge: Labs from last 24 hours 04/03/20 04/02/20 04/02/20 05:30 18:01 18:01 PT 22.3 H 19.6 H INR 1.9 1.6 APTT 106.1 H 76.0 H Discharge Plan Discharge Attending physician on discharge: Michel Kamara Consulting providers: [employer] Discharging Clinician: Michel Kamara Anticipated Discharge Date/Time: 04/03/20 09:10 Patient Disposition: Home, Self-Care Activity: as tolerated and other - see discharge instructions Diet: heart healthy and low sodium Patient Instructions: Antibiotic Form, Warfarin (By mouth), Pulmonary Embolism (DC), Pain Management (DC), Deep Vein Thrombosis (DC), Low-Sodium Diet (DC), End Stage Kidney Disease (DC) Stand Alone Forms: General Discharge Information Follow-up/Referrals: Regla,Garrison Van MD [Primary Care Provider] - Discharge Medications: Continued amiodarone 200 mg tablet 200 mg PO DAILY RF: 0 metoprolol succinate 50 mg tablet extended release 24 hr 50 mg PO DAILY RF: 0 tramadol 50 mg tablet 50 - 100 mg PO Q6H PRN (Reason: Pain) RF: 0 nitroglycerin 0.4 mg tablet, sublingual 0.4 mg sublingual PRN PRN (Reason: Chest Pain) RF: 0 gabapentin [Neurontin] 100 mg capsule 200 mg PO TID RF: 0 fluticasone propionate 50 mcg/actuation spray,suspension 2 spray INTRANASAL HS RF: 0 levalbuterol tartrate 45 mcg/actuation HFA aerosol inhaler 2 puff INHALATION HS RF: 0 losartan [Cozaar] 50 mg Tablet 50 mg PO HS Qty: 30 RF: 0 Triple Antibiotic 3.5mg-400 unit- 5,000 unit/gram Ointment 1 applic topical QAM PRN (Reason: If Not Intact) Qty: 1 RF: 0 prednisone 10 mg tablet 10 mg PO DIRECTED Qty: 30 RF: 0 warfarin 4 mg tablet 4 mg PO DAILY Qty: 30 RF: 0 aspirin [Adult Aspirin Regimen] 81 mg tablet,delayed release (DR/EC) 81 mg PO DAILY Qty: 30 RF: 0 Date of admission: 03/26/20 00:40 Primary Care Provider: Regla,Garrison Van Admitting Provider: Jaleel Schulz Attending physician on admission: Michel Kamara Condition: Improved Quality VTE Prophylaxis VTE prophylaxis: pharmacologic ordered
--- NOTE | 2020-04-03 09:22 | PM.IMPN ---
Progress Note: A&P Time Spent With Patient Time with patient: 25 - 35 minutes Subjective Date/time seen: 04/03/20 09:22 Objective Data Vital Signs Vital Signs: Vital Signs - 24 hr 04/02/20 14:01 04/02/20 14:39 04/02/20 14:52 Temperature 36.3 C L 36.7 C Pulse Rate 55 L 63 55 L Respiratory Rate 16 18 Blood Pressure 119/51 L 136/67 136/67 Pulse Oximetry 96 04/02/20 15:00 04/02/20 15:15 04/02/20 15:30 Temperature Pulse Rate 55 L 57 L 58 L Respiratory Rate Blood Pressure 124/55 L 135/62 150/66 H Pulse Oximetry 04/02/20 15:45 04/02/20 16:00 04/02/20 16:15 Temperature Pulse Rate 58 L 58 L 59 L Respiratory Rate Blood Pressure 141/66 H 132/53 L 137/66 Pulse Oximetry 04/02/20 16:30 04/02/20 16:45 04/02/20 17:00 Temperature Pulse Rate 60 63 62 Respiratory Rate Blood Pressure 161/71 H 136/62 139/57 L Pulse Oximetry 04/02/20 17:15 04/02/20 17:30 04/02/20 17:45 Temperature Pulse Rate 62 63 64 Respiratory Rate Blood Pressure 143/59 H 139/44 L 143/60 H Pulse Oximetry 04/02/20 18:00 04/02/20 18:15 04/02/20 18:22 Temperature Pulse Rate 64 67 66 Respiratory Rate Blood Pressure 144/64 H 138/57 L 139/48 L Pulse Oximetry 04/02/20 18:28 04/02/20 20:00 04/02/20 21:41 Temperature 36.6 C Pulse Rate 66 58 L Respiratory Rate 16 12 Blood Pressure 139/63 Pulse Oximetry 98 97 04/02/20 21:43 04/02/20 22:09 04/02/20 23:54 Temperature 36.7 C Pulse Rate 58 L 62 72 Respiratory Rate 12 16 Blood Pressure 149/58 H Pulse Oximetry 97 97 04/03/20 05:15 04/03/20 08:08 Temperature 36.5 C Pulse Rate 63 59 L Respiratory Rate 16 Blood Pressure 138/44 L Pulse Oximetry 99 Intake/Output Intake/Output: Intake & Output 03/31/20 04/01/20 04/02/20 04/03/20 23:59 23:59 23:59 23:59 Intake Total 3866 556 1669 590 Output Total 4449 948 3800 200 Balance -0413 520 -0935 390 Meds/Results Medications: Active Medications Generic Name Dose Route Start Last Admin Trade Name Freq PRN Reason Stop Dose Admin Amiodarone HCl 200 mg 03/27/20 08:00 04/03/20 08:08 Amiodarone Hcl 200 Mg Tablet PO 200 mg DAILY@0800 LUDWIG Administration Aspirin 81 mg 03/27/20 09:00 04/03/20 08:08 Aspirin 81 Mg Enteric Tablet PO 81 mg DAILY LUDWIG Administration Docusate Sodium 100 mg 03/28/20 21:00 04/03/20 08:08 Docusate Sodium 100 Mg Capsule PO 100 mg Q12H LUDWIG Administration Epoetin Pablo-epbx 10,000 units 04/02/20 09:00 04/02/20 18:55 Epoetin Pablo-Epbx 10,000 Units/Ml Vial IV PUSH Not Given MOWEFR LUDWIG Fluticasone Propionate 2 spray 03/26/20 22:40 04/02/20 22:08 Fluticasone Propionate 0.05% Na Spr 16 Gm Btl (*Bkc) NASAL 2 spray HS LUDWIG Administration Gabapentin 300 mg 03/27/20 14:00 04/03/20 06:02 Gabapentin 300 Mg Capsule PO 300 mg Q8HR LUWDIG Administration Guaifenesin 600 mg 03/28/20 10:00 04/03/20 08:08 Guaifenesin 12 Hr 600 Mg Tabcr PO 600 mg Q12HR LUDWIG Administration Heparin Sodium (Porcine) 4,000 units 03/26/20 06:12 03/30/20 22:34 Heparin Sodium 5,000 Units/Ml Vial IV PUSH 4,000 units PRN PRN Administration aPTT less than 55 seconds Heparin Sodium (Porcine) 4,000 units 03/26/20 06:12 03/27/20 23:16 Heparin Sodium 5,000 Units/Ml Vial IV PUSH 4,000 units PRN PRN Administration aPTT 55 - 70 seconds Albumin Human 50 mls @ 999 mls/hr 03/26/20 14:02 Albutein IVPB 04/25/20 14:03 Q10M PRN HYPOTENSION Heparin Sodium/Dextrose 25,000 units in 250 mls @ 11 mls/hr 03/30/20 08:30 04/03/20 06:03 Heparin Sodium/D5w 100 Units/Ml IV CONT 1,100 units/hr .[id number] LUDWIG 11 mls/hr Administration Protocol 1,100 UNITS/HR Levalbuterol HCl 2 puff 03/26/20 22:40 04/02/20 21:43 Levalbuterol Hfa (*Sp) 15 Gm Inhaler INHALATION 2 puff HS LUDWIG Administration Losartan Potassium 50 mg 03/26/20 22:35 04/02/20 22:09 Losartan Po
--- NOTE | 2020-04-03 09:24 | PM.DS ---
DS: Admitting Diagnosis Admitting Diagnosis Admitting Diagnosis: Fluid Overload,CHF, ESRD, Tropnin Leak DS: Discharge Diagnosis Discharge Diagnosis (1) End stage renal disease: Code(s): N18.6 - End stage renal disease Status: Chronic (2) Subtherapeutic international normalized ratio (INR): Code(s): R79.1 - Abnormal coagulation profile Status: Acute (3) Fluid overload: Qualifiers: Hypervolemia type: unspecified Qualified Code(s): E87.70 - Fluid overload, unspecified Code(s): E87.70 - Fluid overload, unspecified Status: Acute DS: Summary Time Spent with Patient Time attestation: Total time spent providing and/or coordinating discharge services: Exam HENMT: Head: normal to inspection Ears: hearing grossly normal bilaterally General nose exam: Normal nares present Mouth: Yes Normal oral and palatal mucosa present Neck: Neck: normal visual inspection Resp: Effort & Inspection: normal respiratory effort Auscultation: clear to auscultation bilaterally Cardio: Jugular venous distension: no JVD Heart sounds: S1 normal heart sound present and S2 normal heart sound present GI: Inspection: normal to inspection Auscultation: normal bowel sounds DS: Data Data Completed and Pending Labs on day of discharge: Labs from last 24 hours 04/03/20 04/02/20 04/02/20 05:30 18:01 18:01 PT 22.3 H 19.6 H INR 1.9 1.6 APTT 106.1 H 76.0 H Discharge Plan Discharge Attending physician on discharge: Michel Kamara Consulting providers: [employer] Discharging Clinician: Michel Kamara Anticipated Discharge Date/Time: 04/03/20 09:10 Patient Disposition: Home, Self-Care Activity: as tolerated and other - see discharge instructions Diet: heart healthy and low sodium Patient Instructions: Antibiotic Form, Warfarin (By mouth), Pulmonary Embolism (DC), Pain Management (DC), Deep Vein Thrombosis (DC), Low-Sodium Diet (DC), End Stage Kidney Disease (DC) Stand Alone Forms: General Discharge Information Follow-up/Referrals: Regla,Garrison Van MD [Primary Care Provider] - Discharge Medications: Continued amiodarone 200 mg tablet 200 mg PO DAILY RF: 0 metoprolol succinate 50 mg tablet extended release 24 hr 50 mg PO DAILY RF: 0 tramadol 50 mg tablet 50 - 100 mg PO Q6H PRN (Reason: Pain) RF: 0 nitroglycerin 0.4 mg tablet, sublingual 0.4 mg sublingual PRN PRN (Reason: Chest Pain) RF: 0 gabapentin [Neurontin] 100 mg capsule 200 mg PO TID RF: 0 fluticasone propionate 50 mcg/actuation spray,suspension 2 spray INTRANASAL HS RF: 0 levalbuterol tartrate 45 mcg/actuation HFA aerosol inhaler 2 puff INHALATION HS RF: 0 losartan [Cozaar] 50 mg Tablet 50 mg PO HS Qty: 30 RF: 0 Triple Antibiotic 3.5mg-400 unit- 5,000 unit/gram Ointment 1 applic topical QAM PRN (Reason: If Not Intact) Qty: 1 RF: 0 prednisone 10 mg tablet 10 mg PO DIRECTED Qty: 30 RF: 0 warfarin 4 mg tablet 4 mg PO DAILY Qty: 30 RF: 0 aspirin [Adult Aspirin Regimen] 81 mg tablet,delayed release (DR/EC) 81 mg PO DAILY Qty: 30 RF: 0 Date of admission: 03/26/20 00:40 Primary Care Provider: Regla,Garrison Van Admitting Provider: Jaleel Schulz Attending physician on admission: Michel Kamara Condition: Improved Quality VTE Prophylaxis VTE prophylaxis: pharmacologic ordered
[2020-04-03] MEDS: WARFARIN (*PBKC) 4 MG TABLET 12 MG PO (11:28)
--- NOTE | 2020-04-26 12:23 | PM.DS ---
DS: Admitting Diagnosis Admitting Diagnosis Admitting Diagnosis: 1. Acute respiratory failure with hypoxia 2. Acute systolic congestive heart failure 3. End-stage renal disease on dialysis. DS: Discharge Diagnosis Discharge Diagnosis (1) End stage renal disease: Code(s): N18.6 - End stage renal disease Status: Chronic (2) Acute exacerbation of CHF (congestive heart failure): Qualifiers: Heart failure type: unspecified Qualified Code(s): I50.9 - Heart failure, unspecified Code(s): I50.9 - Heart failure, unspecified Status: Acute (3) Acute on chronic respiratory failure with hypoxia: Code(s): J96.21 - Acute and chronic respiratory failure with hypoxia Status: Acute DS: Summary Hospital Course Hospital Course: Patient is 69 years old male with history of multiple medical problems including COPD atrial fibrillation congestive heart failure end-stage renal disease on hemodialysis unable to complaint of having shortness of breath. Patient chest x-ray shows fluid overload. Patient was given dialysis and the heart failure treatment. Her to read of treatment. Start feeling better so patient discharged home stable condition. Heart healthy diet activity as tolerated for the primary care physician and Nephrology outpatient next week condition x7 stable. Time spent discussing smoking cessation with patient: 3 to 10 minutes Status at Discharge Cognitive/behavioral status at discharge: Stable Functional status at discharge: independent ambulation Overall status at discharge: patient is back to baseline Time Spent with Patient Time attestation: Total time spent providing and/or coordinating discharge services: Time spent: Less than 30 minutes Specific discharge activities: As tolerated Discharge Plan Discharge Attending physician on discharge: Michel Kamara Consulting providers: Shaw Bragg ; Arnie Weeks Rafe M. ; Uriel Desir ; Harshil Cardenas Discharging Clinician: Michel Kamara Anticipated Discharge Date/Time: 04/03/20 09:10 Patient Disposition: Home, Self-Care Activity: as tolerated and other - see discharge instructions Diet: heart healthy and low sodium Patient Instructions: Antibiotic Form, Warfarin (By mouth), Pulmonary Embolism (DC), Pain Management (DC), Deep Vein Thrombosis (DC), Low-Sodium Diet (DC), End Stage Kidney Disease (DC) Stand Alone Forms: General Discharge Information Follow-up/Referrals: ReglaGarrison MD [Primary Care Provider] - Discharge Medications: Continued amiodarone 200 mg tablet 200 mg PO DAILY RF: 0 metoprolol succinate 50 mg tablet extended release 24 hr 50 mg PO DAILY RF: 0 tramadol 50 mg tablet 50 - 100 mg PO Q6H PRN (Reason: Pain) RF: 0 nitroglycerin 0.4 mg tablet, sublingual 0.4 mg sublingual PRN PRN (Reason: Chest Pain) RF: 0 gabapentin [Neurontin] 100 mg capsule 200 mg PO TID RF: 0 fluticasone propionate 50 mcg/actuation spray,suspension 2 spray INTRANASAL HS RF: 0 levalbuterol tartrate 45 mcg/actuation HFA aerosol inhaler 2 puff INHALATION HS RF: 0 losartan [Cozaar] 50 mg Tablet 50 mg PO HS Qty: 30 RF: 0 Triple Antibiotic 3.5mg-400 unit- 5,000 unit/gram Ointment 1 applic topical QAM PRN (Reason: If Not Intact) Qty: 1 RF: 0 prednisone 10 mg tablet 10 mg PO DIRECTED Qty: 30 RF: 0 warfarin 4 mg tablet 4 mg PO DAILY Qty: 30 RF: 0 aspirin [Adult Aspirin Regimen] 81 mg tablet,delayed release (DR/EC) 81 mg PO DAILY Qty: 30 RF: 0 Date of admission: 03/26/20 00:40 Primary Care Provider: ReglaGarrison Admitting Provider: Jaleel Schulz Attending physician on admission: Michel Kamara Condition: Improved Quality VTE Prophylaxis VTE prophylaxis: pharmacologic ordered
== END 2020-04-03 12:56 | disposition home or self-care (01) | DRG 291 ==
LOC: ANHED 03-26 00:35 → ANHIMU 03-26 16:58 → ANH3MED 03-28 04:20 → ANHIMU 04-07 16:06
PROVIDERS: Family Medicine; Internal Medicine; Physician Assistant; Admitting Provider Family Medicine; Emergency Provider Emergency Medicine; PCP Family Medicine; Visit Provider Internal Medicine
DX: I13.2 Hypertensive heart and chronic kidney disease with heart failure and with stage 5 chronic kidney disease, or end stage renal disease (principal); N18.6 End stage renal disease; J96.21 Acute and chronic respiratory failure with hypoxia; I26.99 Other pulmonary embolism without acute cor pulmonale; I50.33 Acute on chronic diastolic (congestive) heart failure; I69.354 Hemiplegia and hemiparesis following cerebral infarction affecting left non-dominant side; Z20.828 Contact with and (suspected) exposure to other viral communicable diseases; E87.79 Other fluid overload; F41.8 Other specified anxiety disorders; I25.10 Atherosclerotic heart disease of native coronary artery without angina pectoris; I48.0 Paroxysmal atrial fibrillation; I25.5 Ischemic cardiomyopathy; G47.33 Obstructive sleep apnea (adult) (pediatric); E87.5 Hyperkalemia; E66.9 Obesity, unspecified; D72.829 Elevated white blood cell count, unspecified; R79.1 Abnormal coagulation profile; D63.1 Anemia in chronic kidney disease; Z91.19 Patient's noncompliance with other medical treatment and regimen; Z99.2 Dependence on renal dialysis; Z95.1 Presence of aortocoronary bypass graft; Z68.30 Body mass index [BMI] 30.0-30.9, adult; Z79.01 Long term (current) use of anticoagulants; Z86.39 Personal history of other endocrine, nutritional and metabolic disease; Z99.81 Dependence on supplemental oxygen; Z86.718 Personal history of other venous thrombosis and embolism; Z93.1 Gastrostomy status; Z87.891 Personal history of nicotine dependence
CPT/HCPCS: 36415; 36600; 71045; 71046; 71275; 80048; 80053; 80069; 81001; 82805; 83735; 83880; 84443; 84484; 85025; 85027; 85610; 85730; 87040; 87635; 93005; 94003; 94640; 99285; A9270; C9803; G0257; J1644; J1940; J7030; P9047; Q5106; Q9967; U0003

== ENCOUNTER 2020-04-24 07:53 | Inpatient (IN) | payer MEDICARE, SELFPAY ==
[2020-04-24] VITALS (31 sets, daily range): BP systolic 126–199; BP diastolic 47–86; PULSE 57–92; RESP 12–25; TEMP 35.8–37; O2SAT 90–100; BMI 31.1
--- NOTE | ~2020-04-24 | XR_ITS ---
EXAMINATION: XR chest 1V portable DATE: 04/27/2020 06:19 INDICATION: Congestive heart failure TECHNIQUE: frontal view of the chest was obtained. COMPARISON: Chest radiograph dated 04/24/2020 FINDINGS: Patchy airspace opacities in the bilateral lower lung zones, increased on the right and with improvem ent on the left. Pulmonary vascular congestion without definitive pulmonary edema. Small bilateral pl eural effusions. No pneumothorax. Cardiomegaly. Median sternotomy wires and mediastinal surgical clip s are seen, likely from prior coronary artery bypass grafting. IMPRESSION: 1. Cardiomegaly with pulmonary vascular congestion. 2. Small bilateral pleural effusions with opacities in the lower lung zones which could represent ate lectasis and/or pneumonia, increased on the right and with some improvement on the left. Reviewed, dictated and finalized at location A. LING SORTER IMPRESSION: 1. Cardiomegaly with pulmonary vascular congestion. 2. Small bilateral pleural effusions with opacities in the lower lung zones whi ch could represent atelectasis and/or pneumonia, increased on the right and wit h some improvement on the left.
--- NOTE | ~2020-04-24 | XR_ITS ---
EXAMINATION: XR chest 1V portable EXAM DATE: 04/24/2020 08:49 INDICATION: Respiratory distress. TECHNIQUE: Portable AP frontal chest x-ray was obtained. Comparison is made to prior examination from 03/29/2020 (under a different patient file for this same patient). FINDINGS: There is cardiomegaly and pulmonary vascular congestion. There is indistinct reticulation w ith a bibasal predominance which may indicate pulmonary edema. Small left pleural effusion. Appearanc e is consistent with CHF exacerbation. Infection not excludable. There is no pneumothorax suspected. Sternotomy wires are present without findings to suggest sternal dehiscence. IMPRESSION: Findings consistent with CHF exacerbation. Pneumonia not excludable. Reviewed, dictated and finalized at location A. UTER SYSTEMS ENGINEER IMPRESSION: Findings consistent with CHF exacerbation. Pneumonia not excludable .
--- NOTE | ~2020-04-24 | XR_ITS ---
XR shoulder LT min 2V 04/25/2020 19:10 Indication: Left shoulder pain Procedure: 4 views left shoulder Comparison: No prior studies for comparison. Findings: There is osteoarthritis of the acromioclavicular and to a lesser degree the glenohumeral aide int. No acute fracture or traumatic malalignment. There is a left pleural effusion. There is airspace disease in the left lung, consistent with edema. 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 2: Probable pulmonary edema with left pleural effusion. Reviewed, dictated and finalized at location A. 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 2: Probable pulmonary edema with left pleural effusion.
--- NOTE | 2020-04-24 08:03 | ECG_ITS ---
Measurements Intervals [place] Rate: 88 P: 139 TX: 171 QRS: 71 QRSD: 107 T: 50 QT: 379 QTc: 460 Interpretive Statements SINUS RHYTHM BORDERLINE ST-T WAVE ABNORMALITY- INF/HIGH LAT LEADS BASELINE ARTIFACT- I, III BORDERLINE ECG Electronically Signed On 04-24-2020 14:15:24 MOVEMENT THERAPIST by Cristhian Crane D.O.
[2020-04-24 08:18] LABS: Basophils Percent Auto 0.9 % (0.2-1.2); Eosinophils Percent Auto 5.2 % (0-4.4); Hematocrit 31.8 % (37.0-47.0); Hemoglobin 10.5 g/dL (12.0-15.0); Immature Granulocyte Absolute 0.12 K/mm3 (0.00-0.031); Immature Granulocyte Percent A 0.8 % (0-0.5); Lymphocytes Absolute Auto 2.58 K/mm3 (0.9-3.2); Lymphocytes Percent Auto 17.1 % (18.3-44.2); Mean Corpuscular Hemoglobin 33.3 pg (26-34); Mean Platelet Volume 9.3 fl (7.4-10.4); Monocytes Percent Auto 12.2 % (2.6-8.5); Neutrophils Absolute Auto 9.6 K/mm3 (1.3-6.7); Neutrophils Percent Auto 63.8 % (45.5-73.1); Platelet Count Result 453 k/mm3 (150-375); Red Blood Count 3.15 M/mm3 (4.2-5.4); Red Cell Distribution Width 14.4 % (11.5-14.5); White Blood Count 15.1 K/mm3 (4.5-10.0)
[2020-04-24 08:19] LABS: Basophils Absolute Auto 0.1 K/mm3 (0.0-0.1); Eosinophils Absolute Auto 0.8 K/mm3 (0-0.3); Monocytes Absolute Auto 1.8 K/mm3 (0.1-0.6)
[2020-04-24] MEDS: NITROGLYCERIN OINTMENT 1 INCH DOSE TRANSDERM (08:20)
[2020-04-24] MEDS: FUROSEMIDE INJ 40 MG/4 ML VIAL IV PUSH (08:20)
[2020-04-24 08:24] LABS: Alveolar/Arterial O2 Gradient 276.5 mmHg; Base Excess ABG -2.4 mEq/l (+/-2.0); Carboxyhemoglobin 1.5 % THb (0-2.0); Fractional Inspired Oxygen 100 %; HCO3 ABG 23.4 mEq/l (22.0-26.0); Methemoglobin ABG 0.3 %THb (0-1.5); Oxygen Content ABG 19.3 %vol (16.0-22.0); Oxygen Saturation ABG 99.8 % (95.0-100.0); Oxyhemoglobin 97.5 % THb (90.0-100.0); PCO2 ABG 43.8 mmHg (35.0-45.0); PO2 ABG 392.7 mmHg (80.0-100.0); PO2 FiO2 Ratio Arterial Blood 3.93 %; Reduced Hemoglobin 0.7 %THb (0-5.0); Total Hemoglobin 13.3 g/dL (12.0-18.0); pH ABG 7.345 (7.350-7.450)
[2020-04-24 08:26] LABS: Device NON-INVASIVE VENT; Modified Allen's Test Pass; Non-Invasive Vent Rate 12 /MIN; Site Drawn LEFT RADIAL
[2020-04-24 08:27] LABS: Non-Invasive Expiratory Pressure 8 CMH2O; Non-Invasive Inspiratory Pressure 18 CMH2O
[2020-04-24 08:30] LABS: INR 1.3; Prothrombin Time 17.2 Seconds (11.1-14.7)
[2020-04-24 08:31] LABS: Partial Thromboplastin Time 35.1 SECONDS (22.3-36.8)
[2020-04-24 09:03] LABS: Anion Gap 13 mmol/L (8-16); Blood Urea Nitrogen 48 mg/dL (9-20); Calcium 8.3 mg/dL (8.4-10.2); Carbon Dioxide 27 mmol/L (22-30); Chloride 93 mmol/L (98-107); Estimated CRCL calculation 9 ml/min; Estimated Glomerular Filt Rate 6; Glucose 234 mg/dL (75-110); Potassium 4.9 mmol/L (3.4-5.0); Sodium 133 mmol/L (137-145)
--- NOTE | 2020-04-24 09:03 | ED.SOB ---
HPI - SOB/Dyspnea General Chief Complaint: Shortness of Breath/Dyspnea Stated Complaint: diff breathing Time Seen by Provider: 04/24/20 08:07 Source: patient Mode of arrival: EMS Limitations: clinical condition (respiratory distress) History of Present Illness HPI Narrative: This patient is a 69 year old male with history of CHF, PE, ESRD on dialysis who presents from Dialysis for evaluation of respiratory distress. He states he developed sudden onset shortness of breath prior to dialysis . EMS reports patient was 92% on room but he was in distress so he was placed on NRB. On arrival patient in distress. He denies chest pain, nausea, vomiting. He reports coughing and sweating. His last dialysis treatment was on and he states he did not get any treatment today. He states he has been taking his coumadin and his last INR was 4. Related Data Home Medications Medication Instructions Recorded Confirmed amiodarone 200 mg PO DAILY 04/24/20 04/24/20 atorvastatin 40 mg PO HS 04/24/20 04/24/20 cholecalciferol (vitamin D3) 5,000 units PO HS 04/24/20 04/24/20 coQ10 (ubiquinol) 200 mg PO DAILY 04/24/20 04/24/20 cyanocobalamin (vitamin B-12) 1,000 mcg PO DAILY 04/24/20 04/24/20 fluticasone propionate 1 spray INTRANASAL DAILY 04/24/20 04/24/20 furosemide 80 mg PO BID 04/24/20 04/24/20 gabapentin 100 mg PO TID 04/24/20 04/24/20 levalbuterol tartrate 2 puff INHALATION Q6H PRN 04/24/20 04/24/20 losartan 100 mg PO QPM 04/24/20 04/24/20 metoprolol succinate 50 mg PO BID 04/24/20 04/24/20 nitroglycerin 0.4 mg SUBLINGUAL Q5MIN PRN 04/24/20 04/24/20 sevelamer carbonate [Renvela] 800 mg PO TIDWMEAL 04/24/20 04/24/20 tramadol 50 mg PO Q6H PRN 04/24/20 04/24/20 warfarin 4 mg PO DAILY 04/24/20 04/24/20 Allergies Allergy/AdvReac Type Severity Reaction Status Date / Time Penicillins Allergy Unknown Verified 04/24/20 08:12 Review of Systems Review of Systems: All systems reviewed & are unremarkable except as noted in HPI and below Constitutional: Constitutional: Denies chills and Denies fever(s) Cardiovascular: Cardiovascular: Denies chest pain Respiratory: Respiratory: Reports cough and Reports dyspnea Gastrointestinal: Gastrointestinal: Denies abdominal pain, Denies diarrhea, Denies nausea and Denies vomiting [facility] Past Medical History Medical History (Updated 04/24/20 @ 18:35 by Evelin Beard MD) AAA (abdominal aortic aneurysm) Stable mid abdominal aortic saccular aneurysm measuring 4.2 cm on imaging dated 01/21/2020 Bacterial infection due to Proteus mirabilis ~10/2018; Secondary to infected dialysis catheter C. difficile diarrhea 04/2018 CAD (coronary artery disease) Cardiac catheterization in March 2018 doing showed total occlusion of the obtuse and left main with severe disease in the LAD in which she was transferred to [facility] for urgent 2 vessel CABG. Chronic anemia Chronic respiratory failure with hypoxia, on home oxygen therapy On 2L nasal cannula Congestive heart failure Echo in Dec 2019 showed EF 55-60%, Grade 3 DD and HK apical septum and inferoapical beyer. Moderate Pulm HTN (48) Current use of bed bug exterminator anticoagulation CVA (cerebral vascular accident) Post CABG with residual right-sided weakness Depression with anxiety DVT (deep venous thrombosis) End stage renal disease HD --; Dialysis since 03/2018 Erythropoietin deficiency anemia Hemodialysis access site with arteriovenous graft Right forearm placed in early 2018; right upper arm fistula 2019 History of diabetes mellitus History of Pseudomonas pneumonia Hypertension Ischemic cardiomyopathy Ejection fraction as low as 35% with improvement on recent echocardiogram as above. 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 Pulmonary embolism Small RUL and RLL by CT in Dec 2019 Renal osteodystrophy
[2020-04-24 09:15] LABS: NT Pro B Type Natriuretic Pept > 35000 PG/ML (5-100)
[2020-04-24] MEDS: ENOXAPARIN 120 MG/0.8 ML SYRINGE 110 MG SUB-Q (09:15)
--- NOTE | 2020-04-24 13:07 | ADMGEN ---
This patient, David Saleh, was admitted to IMU Room 232-01 on 04/24/2020 at 1230. Patient/family oriented to hospital policies and general routines including ID bracelet, bed and alarms, visiting hours, pain management, procedures, bathroom and other care routines, personal items, smoking policy, room service/diet, and visiting hours. Information on how to activate the Rapid Response Team has been discussed. Patient/Family are encouraged to report perceived risks to care and to ask questions if they do not understand what they are told or what they should do.
--- NOTE | 2020-04-24 13:38 | PM.CNNEP ---
Assessment and Plan Assessment and plan (1) End stage renal disease: Code(s): N18.6 - End stage renal disease Status: Acute Assessment and Plan: David has end-stage renal disease. He gets dialysis on Wednesdays and Fridays. He is due today. He has 5L on. However currently he is not short of breath and is not even on oxygen. So it seems that even though he has significant volume overload, it is probably not why he was short of breath earlier today. Will go ahead and do dialysis today and get some fluid off. (2) DVT (deep venous thrombosis): Code(s): I82.409 - Acute embolism and thrombosis of unspecified deep veins of unspecified lower extremity Status: Acute Assessment and Plan: The patient is on Coumadin for DVTs and pulmonary emboli. His INR is normal now. He will probably need a heparin drip. Possibly the shortness of breath is due to some embolic phenomenon. I am not sure if imaging is going to help us any because we need to anticoagulate him anyway. The hospitalist will be seeing him soon. I will go ahead and write for a heparin drip. I talked with nursing to get that set up right away. (3) Congestive heart failure: Code(s): I50.9 - Heart failure, unspecified Status: Inactive Assessment and Plan: The patient has had an echo and it showed diastolic dysfunction and moderate pulmonary hypertension. He also has volume overload from drinking too much fluid. (4) Hypertension: Code(s): I10 - Essential (primary) hypertension Status: Acute Assessment and Plan: His blood pressure is under pretty good control. (5) Renal osteodystrophy: Code(s): N25.0 - Renal osteodystrophy Status: Acute Assessment and Plan: Will check a phosphorus level in the morning (6) Erythropoietin deficiency anemia: Code(s): D63.1 - Anemia in chronic kidney disease Status: Acute Assessment and Plan: Hemoglobin is 10.5. Will start Epogen. History of Present Illness Reason for Consult Consult date: 04/24/20 Chief Complaint Chief complaint: acute respiratory failure/fluid overload History of Present Illness Narrative: David is a very pleasant 69-year-old gentleman who has multiple medical problems including end-stage renal disease on dialysis 3 times a week, chronic volume overload from fluid drinking, hypertension, anemia, renal osteodystrophy, pulmonary emboli and DVTs, on Coumadin and goes to the [facility]madin Clinic, aneurysm, congestive heart failure, stroke, depression. The patient woke up this morning feeling okay then he developed shortness of breath shortly before dialysis. Apparently he was in quite a bit of distress at the dialysis unit because they called 911 and had him taken over to the emergency room. By the time he got to the ER the patient was feeling a little bit better. He was on a BiPAP machine at 1st but recently has switched to just nasal cannula and then taken off oxygen altogether. Currently he is in is regular room and he is breathing fine off oxygen. The patient had a chest x-ray which shows a volume overload. At the dialysis unit they did weigh him and he was 5L over his dry weight. Patient insists that he does not drink that much fluid but he does gain all whole lot of weight between treatments. There is some difficulty getting him down to his dry weight because of limitations with blood pressure in getting all the fluid off. Occasionally he comes in for an extra treatment but not routinely. He also has recurrent pulmonary emboli. The patient was recently in the hospital for this and was on heparin drip and bridging to Coumadin for quite a while. His INR was finally therapeutic and he was sent home. He goes to Coumadin clinic at [facility] and they check pro times and call him to adjust his INR. They did check 1 on Sunday of this week but he has not heard what that level was. In the emergency r
[2020-04-24 14:50] LABS: Basophils Absolute Auto 0.1 K/mm3 (0.0-0.1); Basophils Percent Auto 0.6 % (0.2-1.2); Eosinophils Absolute Auto 0.2 K/mm3 (0-0.3); Eosinophils Percent Auto 1.7 % (0-4.4); Hematocrit 31.1 % (42.0-52.0); Hemoglobin 10.3 g/dL (14.0-18.0); Immature Granulocyte Absolute 0.04 K/mm3 (0.00-0.031); Immature Granulocyte Percent A 0.4 % (0-0.5); Lymphocytes Percent Auto 13.3 % (18.3-44.2); Mean Corpuscular HGB Conc 33.1 g/dl (32-36); Mean Corpuscular Volume 99.7 fl (80-100); Mean Platelet Volume 9.1 fl (7.4-10.4); Monocytes Absolute Auto 0.9 K/mm3 (0.1-0.6); Monocytes Percent Auto 9.1 % (2.6-8.5); Neutrophils Absolute Auto 7.3 K/mm3 (1.3-6.7); Neutrophils Percent Auto 74.9 % (45.5-73.1); Platelet Count Result 402 k/mm3 (150-375); Red Blood Count 3.12 M/mm3 (4.6-6.20); Red Cell Distribution Width 14.1 % (11.5-14.5); White Blood Count 9.8 K/mm3 (4.5-10.0)
[2020-04-24 15:02] LABS: INR 1.4
[2020-04-24 15:03] LABS: Partial Thromboplastin Time 39.7 SECONDS (22.3-36.8)
--- NOTE | 2020-04-24 15:59 | PM.IMHP ---
H&P: HPI History of Present Illness Date/Time: 04/24/20 15:59 Chief Complaint: Shortness of breath Narrative: David Saleh is a 69yo male with CHF, ESRD and recent PE in December 2019 who is brought in from dialysis unit for acute onset of shortness of breath and found to have respiratory distress.Patient receives hemodialysis Sunday. No issues with dialysis on Sunday and Sunday. Due to the holiday, his dialysis was schedule for today. He had no issues with shortness of breath or chest pain last evening. He slept well. The head of the bed was elevated but this is chronic for him. He was compliant with his CPAP. He has noted increasing lower extremity edema but he does have this chronically as well. He presented to the dialysis unit around 620 this morning. He states he developed shortness of breath and dizziness/lightheadedness after bending down to medicinal plant picker something off the floor. He denies any chest pain or palpitations. No loss of consciousness. He sat in the lobby for 20 minutes but shortness of breath did not improve. Dialysis nurse weighed the patient and put him in a chair. He was still short of breath. He received dialysis for about 30 minutes but there is no improvement and as such EMS was called. He denies any fever, chills, vision changes, odynophagia, dysphagia, nausea, vomiting, diarrhea, dysuria, hematuria, melena, hematochezia. He does make urine still. He does have a cough present for the past to 3 weeks since his last admission. He has been having hemoptysis at times and epistaxis; the hemoptysis is less often now. He was on antibiotics recently from his dentist for infected tooth but no change in the cough with the antibiotics. He had his last INR of 2.1 drawn on April 16. EMS reports patient was 92% on room air but he was in distress so he was placed on NRB. On arrival to the ED, the patient was in distress and placed on BiPAP. Blood pressure was 199/85. PH 7.34 with pCO2 44 and a PO2 of 392 on BiPAP. INR 1.3. BNP was greater than 35,000. Troponin was normal. EKG showed borderline ST T wave changes in the inferior and high lateral leads. Similar findings from prior EKGs noted. Patient started on nitropaste and given a dose of IV Lasix. Lovenox therapeutic dose given once. He was started on a heparin drip. Was admitted for further care Review of Systems Review of Systems: All systems reviewed & are unremarkable except as noted in HPI and below [facility] Past Medical History Medical History (Updated 04/25/20 @ 18:01 by Gio Mcbride MD) AAA (abdominal aortic aneurysm) Stable mid abdominal aortic saccular aneurysm measuring 4.2 cm on imaging dated 01/21/2020 Bacterial infection due to Proteus mirabilis ~10/2018; Secondary to infected dialysis catheter C. difficile diarrhea 04/2018 CAD (coronary artery disease) Cardiac catheterization in March 2018 doing showed total occlusion of the obtuse and left main with severe disease in the LAD in which she was transferred to [facility] for urgent 2 vessel CABG. Chronic anemia Chronic respiratory failure with hypoxia, on home oxygen therapy On 2L nasal cannula Congestive heart failure Echo in Dec 2019 showed EF 55-60%, Grade 3 DD and HK apical septum and inferoapical beyer. Moderate Pulm HTN (48) Current use of long term care phlebotomist anticoagulation CVA (cerebral vascular accident) Post CABG with residual right-sided weakness Depression with anxiety DVT (deep venous thrombosis) End stage renal disease HD --; Dialysis since 03/2018 Erythropoietin deficiency anemia Hemodialysis access site with arteriovenous graft Right forearm placed in early 2018; right upper arm fistula 2018 History of diabetes mellitus History of Pseudomonas pneumonia Hypertension Ischemic cardiomyopathy Ejection fraction as low as 35% with improvement on recent echocardiogram as above. MRSA infection Obstructive sleep apnea on CPAP Paroxysmal at
[2020-04-24] MEDS: HEPARIN SOD/D5W 100 UNITS/ML 25,000 UNITS/250 ML BAG 15 UNITS IV CONT (17:54)
[2020-04-24] MEDS: WARFARIN (*PBKC) 2 MG TABLET PO (18:47)
[2020-04-24] MEDS: WARFARIN (*PBKC) 5 MG TABLET PO (18:48)
[2020-04-24] MEDS: LOSARTAN POTASSIUM 100 MG TABLET PO (18:48)
[2020-04-24] MEDS: CHOLECALCIFEROL 1,000 UNITS TABLET 5000 UNITS PO (19:54)
[2020-04-24] MEDS: FAMOTIDINE 20 MG TABLET PO (19:55)
[2020-04-24] MEDS: ATORVASTATIN 40 MG TABLET PO (19:55)
[2020-04-24] MEDS: GABAPENTIN 100 MG CAPSULE PO (19:56)
[2020-04-24] MEDS: METOPROLOL SUCCINATE EXT REL 50 MG TABCR PO (19:56)
[2020-04-24] MEDS: SODIUM CHLORIDE NASAL GEL 14.1 GM 1 APPLIC NASAL (19:57)
[2020-04-24] MEDS: FUROSEMIDE 80 MG TABLET PO (21:00)
[2020-04-25] VITALS (27 sets, daily range): BP systolic 139–159; BP diastolic 47–68; PULSE 55–83; RESP 18–24; TEMP 35.8–37.3; O2SAT 93–100
[2020-04-25 00:58] LABS: Partial Thromboplastin Time 67.4 SECONDS (22.3-36.8)
[2020-04-25] MEDS: HEPARIN SODIUM 5,000 UNITS/ML VIAL 3500 UNITS IV PUSH (01:28)
[2020-04-25] MEDS: traMADol HCL (*CRX) 50 MG TABLET PO ×2 (01:32→20:00)
--- NOTE | 2020-04-25 05:23 | PC.NURSE ---
Pt. refuses to use the urinal.
[2020-04-25] MEDS: GABAPENTIN 100 MG CAPSULE PO (05:30)
--- NOTE | 2020-04-25 07:00 | ECG_ITS ---
Measurements Intervals [place] Rate: 62 P: 134 CT: 203 QRS: 47 QRSD: 109 T: 71 QT: 439 QTc: 448 Interpretive Statements SINUS RHYTHM BORDERLINE AV CONDUCTION DELAY DELAYED PRECORDIAL R/S TRANSITION NONSPECIFIC T-WAVE ABNORMALITY- HIGH LATERAL LEADS Electronically Signed On 04-25-2020 15:04:38 AUCTION ASSISTANT by Cristhian Crane D.O.
[2020-04-25 08:00] LABS: Glucose Point of Care 135 (65-105)
--- NOTE | 2020-04-25 08:01 | PC.NURSE ---
Patient's Heparin gtt was at 17mL/hr at shift change. Documented current settings on titration flowsheet. Patient's PTT was 67.4 at 0014. Will continue to monitor and titrate gtt per protocol with next PTT.
[2020-04-25 08:18] LABS: Basophils Absolute Auto 0.1 K/mm3 (0.0-0.1); Eosinophils Absolute Auto 0.5 K/mm3 (0-0.3); Eosinophils Percent Auto 5.6 % (0-4.4); Hematocrit 27.5 % (42.0-52.0); Hemoglobin 9.2 g/dL (14.0-18.0); Immature Granulocyte Absolute 0.03 K/mm3 (0.00-0.031); Immature Granulocyte Percent A 0.4 % (0-0.5); Lymphocytes Absolute Auto 1.72 K/mm3 (0.9-3.2); Lymphocytes Percent Auto 20.6 % (18.3-44.2); Mean Corpuscular HGB Conc 33.5 g/dl (32-36); Mean Corpuscular Hemoglobin 33.2 pg (26-34); Mean Corpuscular Volume 99.3 fl (80-100); Mean Platelet Volume 8.8 fl (7.4-10.4); Monocytes Absolute Auto 1.2 K/mm3 (0.1-0.6); Monocytes Percent Auto 14.1 % (2.6-8.5); Neutrophils Absolute Auto 4.9 K/mm3 (1.3-6.7); Neutrophils Percent Auto 58.3 % (45.5-73.1); Platelet Count Result 366 k/mm3 (150-375); Red Blood Count 2.77 M/mm3 (4.6-6.20); White Blood Count 8.4 K/mm3 (4.5-10.0)
[2020-04-25 08:21] LABS: INR 1.3; Prothrombin Time 17.1 Seconds (11.1-14.7)
[2020-04-25 08:33] LABS: Albumin Level 3.7 g/dL (3.5-5.1); Anion Gap 9 mmol/L (8-16); Blood Urea Nitrogen 33 mg/dL (9-20); Calcium 8.5 mg/dL (8.4-10.2); Carbon Dioxide 33 mmol/L (22-30); Chloride 94 mmol/L (98-107); Estimated CRCL calculation 13 ml/min; Estimated Glomerular Filt Rate 8; Glucose 128 mg/dL (75-110); Phosphorus 5.5 mg/dL (2.5-4.5); Potassium 4.6 mmol/L (3.4-5.0); Sodium 136 mmol/L (137-145)
--- NOTE | 2020-04-25 09:42 | PM.PNNEP ---
Progress Note: A&P Assessment and Plan (1) End stage renal disease: Code(s): N18.6 - End stage renal disease Status: Acute Assessment and Plan: David has end-stage renal disease. He gets dialysis on Wednesdays and Fridays. Will get another treatment tomorrow (2) DVT (deep venous thrombosis): Code(s): I82.409 - Acute embolism and thrombosis of unspecified deep veins of unspecified lower extremity Status: Acute Assessment and Plan: The patient is on Coumadin for DVTs and pulmonary emboli. On heparin drip. (3) Congestive heart failure: Code(s): I50.9 - Heart failure, unspecified Status: Acute Assessment and Plan: The patient has had an echo and it showed diastolic dysfunction and moderate pulmonary hypertension. He also has volume overload from drinking too much fluid. (4) Hypertension: Code(s): I10 - Essential (primary) hypertension Status: Acute Assessment and Plan: His blood pressure is good today at 1:39 a.m. (5) Renal osteodystrophy: Code(s): N25.0 - Renal osteodystrophy Status: Acute Assessment and Plan: Will check a phosphorus level in the morning (6) Erythropoietin deficiency anemia: Code(s): D63.1 - Anemia in chronic kidney disease Status: Acute Assessment and Plan: Hemoglobin is 10.5. on epo Subjective Date/time seen: 04/25/20 09:42 Interval history: Patient feels okay today. No shortness of breath. He did not sleep well last night. His neuropathy is acting up because he did not get his Gabapentin until yesterday in the evening. Review of Systems Cardiovascular: Cardiovascular: Reports no additional cardiovascular complaints Respiratory: Respiratory: Reports no additional respiratory complaints Gastrointestinal: Gastrointestinal: Reports no additional gastrointestinal complaints Genitourinary: Genitourinary: Reports no additional male genitourinary complaints Exam Narrative: Exam Narrative: WDWN in NAD skin no rash head ncat lungs clear cor reg no rub abd BS+ nontender and soft ext 1+ edema. Objective Data Vital Signs Vital Signs: Vital Signs - 24 hr 04/24/20 10:01 04/24/20 10:02 04/24/20 10:09 Temperature Pulse Rate 61 62 60 Respiratory Rate 14 12 13 Blood Pressure 148/50 H Pulse Oximetry 100 100 04/24/20 10:18 04/24/20 10:30 04/24/20 10:31 Temperature Pulse Rate 59 L 57 L 57 L Respiratory Rate 17 13 12 Blood Pressure 126/47 L Pulse Oximetry 100 100 100 04/24/20 10:52 04/24/20 12:30 04/24/20 13:32 Temperature 35.8 C L 36.6 C Pulse Rate 65 Respiratory Rate 20 Blood Pressure 159/71 H Pulse Oximetry 94 94 04/24/20 14:00 04/24/20 16:00 04/24/20 17:38 Temperature 36.6 C Pulse Rate 66 68 69 Respiratory Rate 20 Blood Pressure 170/65 H Pulse Oximetry 94 100 04/24/20 18:00 04/24/20 19:56 04/24/20 20:00 Temperature 36.1 C L Pulse Rate 65 68 65 Respiratory Rate 22 H Blood Pressure 160/67 H Pulse Oximetry 95 04/24/20 21:11 04/24/20 21:35 04/24/20 21:45 Temperature 37.0 C Pulse Rate 75 69 Respiratory Rate 20 Blood Pressure 178/78 H 179/86 H Pulse Oximetry 94 04/24/20 22:00 04/24/20 22:15 04/24/20 22:30 Temperature Pulse Rate 65 72 79 Respiratory Rate Blood Pressure 166/65 H 171/62 H 149/54 H Pulse Oximetry 04/24/20 23:00 04/24/20 23:15 04/24/20 23:30 Temperature Pulse Rate 79 78 77 Respiratory Rate Blood Pressure 150/56 H 158/54 H 141/68 H Pulse Oximetry 04/24/20 23:45 04/25/20 00:00 04/25/20 00:15 Temperature Pulse Rate 85 66 78 Respiratory Rate Blood Pressure 161/58 H 148/57 H 146/58 H Pulse Oximetry 95 04/25/20 00:30 04/25/20 00:46 04/25/20 01:00 Temperature 37.3 C Pulse Rate 76 75 76 Respiratory Rate 22 H Blood Pressure 140/55 L 146/53 H 141/57 H Pulse Oximetry 04/25/20 01:27 04/25/20 02:00 04/25/20 0
[2020-04-25] MEDS: SEVELAMER CARBONATE 800 MG TABLET PO ×3 (10:00→18:20)
[2020-04-25] MEDS: FUROSEMIDE 80 MG TABLET PO ×2 (10:00→18:21)
[2020-04-25] MEDS: AMIODARONE HCL 200 MG TABLET PO (10:01)
[2020-04-25] MEDS: FAMOTIDINE 20 MG TABLET PO ×2 (10:01→22:47)
[2020-04-25] MEDS: CYANOCOBALAMIN 1,000 MCG TABLET 1000 MCG PO (10:01)
[2020-04-25] MEDS: METOPROLOL SUCCINATE EXT REL 50 MG TABCR PO ×2 (10:02→20:01)
[2020-04-25] MEDS: FLUTICASONE PROPIONATE 0.05% NA SPR 16 GM BTL (*BKC) 1 SPRAY NASAL (10:02)
[2020-04-25] MEDS: HEPARIN SOD/D5W 100 UNITS/ML 25,000 UNITS/250 ML BAG 17 UNITS IV CONT (10:02)
--- NOTE | 2020-04-25 13:03 | PM.IMPN ---
Progress Note: A&P Assessment and Plan (1) Acute and chronic respiratory failure: Code(s): J96.20 - Acute and chronic respiratory failure, unspecified whether with hypoxia or hypercapnia Status: Acute Assessment and Plan: Patient developed acute respiratory hypoxic distress requiring BiPAP felt related to CHF. Symptoms have improved. Improvement probably related to the Lasix treatment from the emergency room. Emergency dialysis last evening. Patient has been weaned down to his chronic O2 requirement of 3 L. Continue PAP at night. Repeat HD in the morning (2) Congestive heart failure: Code(s): I50.9 - Heart failure, unspecified Status: Acute Assessment and Plan: BNP greater than 35,000. Chest x-ray consistent with pulmonary edema. Patient with known chronic diastolic CHF. Suspect acute flare possibly related to dietary indiscretion and/or delayed dialysis. Lasix given once in ED. Continue hemodialysis to control fluid status. (3) Pulmonary embolism: Code(s): I26.99 - Other pulmonary embolism without acute cor pulmonale Status: Inactive Assessment and Plan: Patient had a CTA of the chest in December 2019 showing a right upper lobe and right lower lobe pulmonary emboli with low clot burden. Doppler of the lower extremity was negative for DVT at that time. He had a repeat CTA March 26, 2020 showing no change in the PEs. INR subtherapeutic and Lovenox given x 1. Heparin drip started without bolus. INR 1.3. Increase Coumadin again. Eliquis is too expensive per patient. (4) Erythropoietin deficiency anemia: Code(s): D63.1 - Anemia in chronic kidney disease Status: Acute Assessment and Plan: Hgb mostly runs in the 9-10 range but was 8.5 at time of last discharge on 04/02/20. Hgb 10 here and dropped to 9.2 on repeat. Follow. (5) Hypertension: Code(s): I10 - Essential (primary) hypertension Status: Acute Assessment and Plan: BP noted to be elevated on admission but felt related to patient being in distress. BP better controlled now. Continue to monitor. Continue metoprolol and losartan. (6) End stage renal disease: Code(s): N18.6 - End stage renal disease Status: Acute Assessment and Plan: As above. HD 04/24 and again tomorrow. (7) Paroxysmal atrial fibrillation: Code(s): I48.0 - Paroxysmal atrial fibrillation Status: Inactive Assessment and Plan: EKG noted. Patient currently in NSR. Continue Amiodarone. Continue tele. Additional Plan Left shoulder pain - suspect Biceps tendinitis. Check x-ray. Subjective Date/time seen: 04/25/20 13:03 Interval history: Date of service 04/25/20 69yo male with CHF, ESRD and chronic respiratory failure here for acute respiratory failure. He did have good UOP after the Lasix from the ED. He did have HD last night and 3L removed. He tolerated this well. Complains of left shoulder pain but no trauma. Pain when he abducts the left shoulder. Did not wear PAP last night. Exam Narrative: Exam Narrative: AF 97.5 143/54 65 18 100% Gen - NARD sitting at the side of the bed Chest - few bibasilar crackles CV - RRR S1/S2; Telemetry showing PVCs Abd - Soft, NT, +BS Ext - 1+ pedal edema. pain over the left bicep tendon. Pain with abduction and internal rotation but strength is intact. Asset Availability Leader is normal. Psych - Nml mood and affect Skin - Warm and dry Objective Data Vital Signs Vital Signs: Vital Signs - 24 hr 04/24/20 13:32 04/24/20 14:00 04/24/20 16:00 Temperature Pulse Rate 66 68 Respiratory Rate Blood Pressure Pulse Oximetry 94 94 04/24/20 17:38 04/24/20 18:00 04/24/20 19:56 Temperature 97.9 F Pulse Rate 69 65 68 Respiratory Rate 20 Blood Pressure 170/65 H Pulse Oximetry 100 04/24/20 20:00 04/24/20 21:11 04/24/20 21:35 Temperature 97 F L 98.6 F Pulse Rate 65 75
[2020-04-25] MEDS: GABAPENTIN 100 MG CAPSULE 200 MG PO ×2 (14:33→20:01)
[2020-04-25 14:58] LABS: Partial Thromboplastin Time 100.6 SECONDS (22.3-36.8)
[2020-04-25] MEDS: WARFARIN (*PBKC) 5 MG TABLET PO (18:20)
[2020-04-25] MEDS: WARFARIN (*PBKC) 2 MG TABLET PO (18:21)
[2020-04-25] MEDS: LOSARTAN POTASSIUM 100 MG TABLET PO (18:22)
[2020-04-25] MEDS: CHOLECALCIFEROL 1,000 UNITS TABLET 5000 UNITS PO (20:01)
[2020-04-25] MEDS: ATORVASTATIN 40 MG TABLET PO (20:01)
[2020-04-25] MEDS: SALINE 0.65% NAS SOLN 44 ML BTL 1 SPRAY NASAL (20:02)
[2020-04-25] MEDS: SODIUM CHLORIDE NASAL GEL 14.1 GM 1 APPLIC NASAL (22:47)
[2020-04-26] VITALS (38 sets, daily range): BP systolic 121–172; BP diastolic 52–90; PULSE 54–95; RESP 12–26; TEMP 35.9–37; O2SAT 92–100
[2020-04-26] MEDS: HEPARIN SOD/D5W 100 UNITS/ML 25,000 UNITS/250 ML BAG 17 UNITS IV CONT ×2 (01:20→16:46)
[2020-04-26 05:51] LABS: INR 1.5; Prothrombin Time 18.7 Seconds (11.1-14.7)
[2020-04-26] MEDS: GABAPENTIN 100 MG CAPSULE 200 MG PO ×3 (06:55→21:47)
[2020-04-26 08:43] LABS: Glucose Point of Care 125 (65-105)
--- NOTE | 2020-04-26 08:55 | PC.NURSE ---
Patient to dialysis via bed.
--- NOTE | 2020-04-26 11:20 | PM.PNNEP ---
Progress Note: A&P Assessment and Plan (1) End stage renal disease: Code(s): N18.6 - End stage renal disease Status: Acute Assessment and Plan: David has end-stage renal disease. He gets dialysis on Wednesdays and Fridays. getting a treatment today. (2) DVT (deep venous thrombosis): Code(s): I82.409 - Acute embolism and thrombosis of unspecified deep veins of unspecified lower extremity Status: Acute Assessment and Plan: The patient is on Coumadin for DVTs and pulmonary emboli. On heparin drip. INR up to 1.5 today. (3) Congestive heart failure: Code(s): I50.9 - Heart failure, unspecified Status: Acute Assessment and Plan: The patient has had an echo and it showed diastolic dysfunction and moderate pulmonary hypertension. He also has volume overload from drinking too much fluid. Chest x-ray done on admission showed fluid. We are getting fluid off in dialysis today. Check another chest x-ray tomorrow (4) Hypertension: Code(s): I10 - Essential (primary) hypertension Status: Acute Assessment and Plan: His blood pressure is doing pretty well. (5) Renal osteodystrophy: Code(s): N25.0 - Renal osteodystrophy Status: Acute Assessment and Plan: Will check a phosphorus level in the morning (6) Erythropoietin deficiency anemia: Code(s): D63.1 - Anemia in chronic kidney disease Status: Acute Assessment and Plan: Hemoglobin is 10.5. on epo Subjective Date/time seen: 04/26/20 11:20 Interval history: Patient feels okay today. No shortness of breath. on dialysis and tolerating it well. Going for 3L. He was seen at 11 a.m. Exam Narrative: Exam Narrative: WDWN in NAD skin no rash head ncat lungs clear cor reg no rub abd BS+ nontender and soft ext 1+ edema. Objective Data Vital Signs Vital Signs: Vital Signs - 24 hr 04/25/20 11:35 04/25/20 12:00 04/25/20 14:00 Temperature 36.4 C L Pulse Rate 62 65 62 Respiratory Rate 18 Blood Pressure 143/54 H Pulse Oximetry 100 97 04/25/20 15:52 04/25/20 16:00 04/25/20 18:00 Temperature 36.6 C Pulse Rate 59 L 59 L 72 Respiratory Rate 20 Blood Pressure 147/56 H Pulse Oximetry 98 97 04/25/20 19:47 04/25/20 20:00 04/25/20 20:01 Temperature 36.3 C L Pulse Rate 60 64 63 Respiratory Rate 22 H Blood Pressure 142/68 H Pulse Oximetry 98 98 04/25/20 20:50 04/25/20 22:00 04/25/20 23:00 Temperature Pulse Rate 62 55 L 65 Respiratory Rate 24 H 22 H Blood Pressure Pulse Oximetry 93 94 04/26/20 00:00 04/26/20 02:00 04/26/20 02:36 Temperature 35.9 C L Pulse Rate 95 54 L 64 Respiratory Rate 22 H 20 Blood Pressure 148/57 H Pulse Oximetry 100 94 04/26/20 03:12 04/26/20 04:00 04/26/20 06:00 Temperature 36.3 C L Pulse Rate 54 L 56 L Respiratory Rate 20 Blood Pressure 130/64 Pulse Oximetry 97 98 04/26/20 08:00 04/26/20 08:45 04/26/20 09:01 Temperature 36.3 C L 36.9 C Pulse Rate 63 60 Respiratory Rate 26 H 18 Blood Pressure 135/64 131/61 Pulse Oximetry 100 95 04/26/20 09:15 04/26/20 09:30 04/26/20 09:45 Temperature Pulse Rate 57 L 57 L 57 L Respiratory Rate Blood Pressure 153/68 H 128/54 L 144/74 H Pulse Oximetry 04/26/20 10:00 04/26/20 10:15 04/26/20 10:30 Temperature Pulse Rate 59 L 56 L 57 L Respiratory Rate Blood Pressure 124/58 L 131/63 131/60 Pulse Oximetry 04/26/20 10:45 04/26/20 11:00 04/26/20 11:15 Temperature Pulse Rate 58 L 55 L 55 L Respiratory Rate Blood Pressure 153/54 H 138/60 146/52 H Pulse Oximetry Intake/Output Intake/Output: Intake & Output 04/23/20 04/24/20 04/25/20 04/26/20 23:59 23:59 23:59 23:59 Intake Total 240 2270 810 Output Total 3100 Balance 240 -830 810 Meds/Results Medications: Active Medications Generic Name Dose Route Start Last Admin Trade Nam
[2020-04-26] MEDS: EPOETIN ALFA-EPBX 10,000 UNITS/ML VIAL 10000 UNITS IV PUSH (12:18)
--- NOTE | 2020-04-26 13:15 | PC.NURSE ---
Patient returned to room following dialysis. Report received from MADAI Rahman.
[2020-04-26] MEDS: METOPROLOL SUCCINATE EXT REL 50 MG TABCR PO ×2 (13:25→21:47)
[2020-04-26] MEDS: SEVELAMER CARBONATE 800 MG TABLET PO ×2 (13:25→16:46)
[2020-04-26] MEDS: FUROSEMIDE 80 MG TABLET PO ×2 (13:25→16:46)
[2020-04-26] MEDS: FAMOTIDINE 20 MG TABLET PO ×2 (13:25→21:47)
[2020-04-26] MEDS: AMIODARONE HCL 200 MG TABLET PO (13:26)
[2020-04-26] MEDS: CYANOCOBALAMIN 1,000 MCG TABLET 1000 MCG PO (13:26)
--- NOTE | 2020-04-26 16:12 | PM.IMPN ---
Progress Note: A&P Assessment and Plan (1) Acute and chronic respiratory failure: Code(s): J96.20 - Acute and chronic respiratory failure, unspecified whether with hypoxia or hypercapnia Status: Acute Assessment and Plan: Patient developed acute respiratory hypoxic distress at dialysis on 04/24 requiring BiPAP felt related to CHF. Symptoms have improved. Improvement probably related to the Lasix treatment from the emergency room and with HD. Emergency dialysis was the evening on 04/24 and currently receiving HD now. Patient has been weaned down to his chronic O2 requirement of 3 L. Continue PAP at night. Repeat CXR in the morning. (2) Congestive heart failure: Code(s): I50.9 - Heart failure, unspecified Status: Acute Assessment and Plan: BNP greater than 35,000. Chest x-ray consistent with pulmonary edema. Patient with known chronic diastolic CHF. Suspect acute flare possibly related to dietary indiscretion and/or delayed dialysis. Lasix given once in ED. Continue hemodialysis to control fluid status. (3) Pulmonary embolism: Code(s): I26.99 - Other pulmonary embolism without acute cor pulmonale Status: Inactive Assessment and Plan: Patient had a CTA of the chest in December 2019 showing a right upper lobe and right lower lobe pulmonary emboli with low clot burden. Doppler of the lower extremity was negative for DVT at that time. He had a repeat CTA March 26, 2020 showing no change in the PEs. INR subtherapeutic and Lovenox given x 1 on 04/24 but then stared on Heparin drip without bolus. INR 1.3 on admission. Eliquis is too expensive per patient. INR 1.5 today. Increase Coumadin again (4) Erythropoietin deficiency anemia: Code(s): D63.1 - Anemia in chronic kidney disease Status: Acute Assessment and Plan: Hgb mostly runs in the 9-10 range but was 8.5 at time of last discharge on 04/02/20. Hgb 10 here and dropped to 9.2 on repeat. (5) Hypertension: Code(s): I10 - Essential (primary) hypertension Status: Acute Assessment and Plan: BP noted to be elevated on admission but felt related to patient being in distress. BP better controlled now. Continue to monitor. Continue metoprolol and losartan. (6) End stage renal disease: Code(s): N18.6 - End stage renal disease Status: Acute Assessment and Plan: As above. HD 04/24 and again today. Nephrology following. (7) Paroxysmal atrial fibrillation: Code(s): I48.0 - Paroxysmal atrial fibrillation Status: Inactive Assessment and Plan: EKG noted. Patient maintaining NSR. Continue Amiodarone. Continue tele. Additional Plan Left shoulder pain - suspect Biceps tendinitis. X-ray noted. Pain better. K-pad for comfort. Subjective Date/time seen: 04/26/20 1000 Interval history: Date of service 04/26 69yo male with CHF, ESRD and chronic respiratory failure here for acute respiratory failure. Shoulder feels better. Slept off and on last night. Wore CPAP last night. No CP or SOB. Exam Narrative: Exam Narrative: AF 98.3 141/90 66 20 100% Gen - NARD lying semi-recumbent in bed having HD. Chest - bibasilar inspiratory crackles, nml RR CV - RRR S1/S2; Telemetry showing no significant dysrhythmias Abd - Soft, NT, +BS Ext - 1+ pedal edema Psych - Nml mood and affect Skin - Warm and dry Objective Data Vital Signs Vital Signs: Vital Signs - 24 hr 04/25/20 18:00 04/25/20 19:47 04/25/20 20:00 Temperature 97.4 F L Pulse Rate 72 60 64 Respiratory Rate 22 H Blood Pressure 142/68 H Pulse Oximetry 98 98 04/25/20 20:01 04/25/20 20:50 04/25/20 22:00 Temperature Pulse Rate 63 62 55 L Respiratory Rate 24 H Blood Pressure Pulse Oximetry 93 04/25/20 23:00 04/26/20 00:00 04/26/20 02:00 Temperature 96.7 F L Pulse Rate 65 95 54 L Respiratory Rate 22 H 22 H Blood Pres
[2020-04-26 16:40] LABS: Glucose Point of Care 175 (65-105)
[2020-04-26] MEDS: LOSARTAN POTASSIUM 100 MG TABLET PO (16:46)
[2020-04-26] MEDS: WARFARIN (*PBKC) 5 MG TABLET PO (17:22)
[2020-04-26] MEDS: WARFARIN (*PBKC) 4 MG TABLET PO (17:22)
[2020-04-26] MEDS: CHOLECALCIFEROL 1,000 UNITS TABLET 5000 UNITS PO (21:47)
[2020-04-26] MEDS: ATORVASTATIN 40 MG TABLET PO (21:47)
[2020-04-26] MEDS: SALINE 0.65% NAS SOLN 44 ML BTL 1 SPRAY NASAL (21:47)
[2020-04-26] MEDS: SODIUM CHLORIDE NASAL GEL 14.1 GM 1 APPLIC NASAL (21:48)
[2020-04-26] MEDS: FLUTICASONE PROPIONATE 0.05% NA SPR 16 GM BTL (*BKC) 1 SPRAY NASAL (21:48)
[2020-04-26] MEDS: traMADol HCL (*CRX) 50 MG TABLET PO (21:49)
[2020-04-27] VITALS (18 sets, daily range): BP systolic 129–166; BP diastolic 57–83; PULSE 49–64; RESP 15–22; TEMP 36.2–37.2; O2SAT 94–99
--- NOTE | 2020-04-27 | ECHO_ITS ---
Patient Info Name: David Saleh Age: 69 years : 1950 Gender: Male Ht: 74 in Wt: 225 lbs BSA: 2.33 m2 HR: 64 bpm BP: 166 / 69 mmHg Heart Rhythm: Sinus Rhythm Technical Quality: Good Exam Date: 04/27/2020 12:00 PM Exam Location: [facility] Card Pulmonary Patient Status: Inpatient Admit Date: 04/24/2020 Staff Ordering Physician: Mic Wilder MD M[employer] Tub [employer]er Operator: Maximus Head, PETRA, RT Attending Provider: Saji Ruiz MD Exam Type: CA echo dop color flow w con Study Info Complete two-dimensional, color flow and Doppler transthoracic echocardiogram is performed with contrast to opacify the left ventricle and to improve the deliniation of the left ventricle endocardial borders. Strain analysis performed. Summary 1. Complete two-dimensional, color flow and Doppler transthoracic echocardiogram is performed with contrast to opacify the left ventricle and to improve the deliniation of the left ventricle endocardial borders. 2. Strain analysis performed. 3. Left ventricular chamber dimension is mildly enlarged. 4. Left ventricular systolic function is mildly reduced, estimated at 45-50%. 5. There is mildly increased left ventricular wall thickness. 6. The left ventricular diastolic function is grade III diastolic dysfunction. 7. Global longitudinal strain is abnormal at -9 %. 8. The apical inferior wall is akinetic. 9. The apical septum, apical lateral wall, and apical anterior wall are hypokinetic. 10. The apical cap is dyskinetic. 11. Left atrial chamber dimension is mildly enlarged. 12. There is mild aortic valve stenosis with a peak velocity of 182.35 cm/s, mean gradient of 7 mmHg, and aortic valve area of 1.59 cm2. 13. There is moderate aortic valve calcification. 14. There is moderate mitral valve regurgitation. 15. The mitral valve has thickened leaflets, calcified leaflets and calcified annulus. 16. There is moderate tricuspid valve regurgitation. 17. Severe pulmonary hypertension, estimated pulmonary arterial systolic pressure is 61 mmHg. 18. There is mild pulmonic regurgitation. Left Ventricle Left ventricular chamber dimension is mildly enlarged. Left ventricular systolic function is mildly reduced, estimated at 45-50%. There is mildly increased left ventricular wall thickness. The left ventricular diastolic function is grade III diastolic dysfunction. Global longitudinal strain is abnormal at -9 %. The apical inferior wall is akinetic. The apical septum, apical lateral wall, and apical anterior wall are hypokinetic. The apical cap is dyskinetic. All other beyer appear normal. Right Ventricle Right ventricular chamber dimension is normal. Right ventricular systolic function is normal. Left Atria Left atrial chamber dimension is mildly enlarged. Right Atria Right atrial chamber dimension is normal. Atrial Septum Intact interatrial septum visualized by color flow imaging. Aortic Valve The aortic valve is trileaflet. There is mild aortic valve stenosis with a peak velocity of 182.35 cm/s, mean gradient of 7 mmHg, and aortic valve area of 1.59 cm2. There is trace aortic valve regurgitation. There is moderate aortic valve calcification. Pulmonic Valve The pulmonic valve is normal. There is no pulmonic valve stenosis. There is mild pulmonic regurgitation. Mitral Valve The mitral valve has thickened leaflets, calcified leaflets and calcified annulus. There is no mitral valve stenosis. There is moderate mitral valve regurgitation. Tr
[2020-04-27 05:08] LABS: Hematocrit 26.9 % (42.0-52.0); Mean Corpuscular HGB Conc 33.5 g/dl (32-36); Mean Corpuscular Hemoglobin 33.1 pg (26-34); Mean Corpuscular Volume 98.9 fl (80-100); Mean Platelet Volume 9.5 fl (7.4-10.4); Platelet Count Result 369 k/mm3 (150-375); Red Blood Count 2.72 M/mm3 (4.6-6.20)
[2020-04-27 05:24] LABS: INR 1.7
[2020-04-27] MEDS: GABAPENTIN 100 MG CAPSULE 200 MG PO ×3 (06:07→21:00)
[2020-04-27] MEDS: HEPARIN SOD/D5W 100 UNITS/ML 25,000 UNITS/250 ML BAG 17 UNITS IV CONT ×2 (07:43→22:17)
[2020-04-27] MEDS: FAMOTIDINE 20 MG TABLET PO ×2 (08:45→20:42)
[2020-04-27] MEDS: FUROSEMIDE 80 MG TABLET PO ×2 (08:46→17:10)
[2020-04-27] MEDS: METOPROLOL SUCCINATE EXT REL 50 MG TABCR PO ×2 (08:46→20:43)
[2020-04-27] MEDS: SEVELAMER CARBONATE 800 MG TABLET PO ×3 (08:47→17:10)
[2020-04-27] MEDS: AMIODARONE HCL 200 MG TABLET PO (08:47)
[2020-04-27] MEDS: CYANOCOBALAMIN 1,000 MCG TABLET 1000 MCG PO (08:48)
--- NOTE | 2020-04-27 09:16 | PM.PNNEP ---
Progress Note: A&P Assessment and Plan (1) End stage renal disease: Code(s): N18.6 - End stage renal disease Status: Acute Assessment and Plan: David has end-stage renal disease. He gets dialysis on Wednesdays and Fridays. Will get a treatment tomorrow. He still has some swelling. Will remove more fluid tomorrow (2) DVT (deep venous thrombosis): Code(s): I82.409 - Acute embolism and thrombosis of unspecified deep veins of unspecified lower extremity Status: Acute Assessment and Plan: The patient is on Coumadin for DVTs and pulmonary emboli. On heparin drip. INR up to 1.7 today. (3) Congestive heart failure: Code(s): I50.9 - Heart failure, unspecified Status: Acute Assessment and Plan: The patient has had an echo and it showed diastolic dysfunction and moderate pulmonary hypertension. He also has volume overload from drinking too much fluid. Chest x-ray done on admission showed fluid. We are getting fluid off in dialysis today. Pulmonary vascular congestion. Take more fluid off tomorrow. (4) Hypertension: Code(s): I10 - Essential (primary) hypertension Status: Acute Assessment and Plan: His blood pressure is doing pretty well. (5) Renal osteodystrophy: Code(s): N25.0 - Renal osteodystrophy Status: Acute Assessment and Plan: Phosphorus level is not too bad (6) Erythropoietin deficiency anemia: Code(s): D63.1 - Anemia in chronic kidney disease Status: Acute Assessment and Plan: Hemoglobin is down a little bit. on epo with dialysis Subjective Date/time seen: 04/27/20 09:16 Interval history: Patient feels okay today. No shortness of breath. Dialysis went well yesterday he says. Patient has a little bit of a nose bleed. Exam Narrative: Exam Narrative: WDWN in NAD skin no rash or subcu nodules head ncat lungs clear cor reg no rub abd BS+ nontender and soft ext 1+ edema bilaterally. Objective Data Vital Signs Vital Signs: Vital Signs - 24 hr 04/26/20 09:30 04/26/20 09:45 04/26/20 10:00 Temperature Pulse Rate 57 L 57 L 59 L Respiratory Rate Blood Pressure 128/54 L 144/74 H 124/58 L Pulse Oximetry 04/26/20 10:15 04/26/20 10:30 04/26/20 10:45 Temperature Pulse Rate 56 L 57 L 58 L Respiratory Rate Blood Pressure 131/63 131/60 153/54 H Pulse Oximetry 04/26/20 11:00 04/26/20 11:15 04/26/20 11:30 Temperature Pulse Rate 55 L 55 L 67 Respiratory Rate Blood Pressure 138/60 146/52 H 144/55 H Pulse Oximetry 04/26/20 11:45 04/26/20 12:00 04/26/20 12:15 Temperature Pulse Rate 55 L 57 L 56 L Respiratory Rate Blood Pressure 125/62 133/61 121/65 Pulse Oximetry 04/26/20 12:30 04/26/20 12:45 04/26/20 12:55 Temperature 36.8 C Pulse Rate 55 L 59 L 62 Respiratory Rate 18 Blood Pressure 146/76 H 172/78 H 143/70 H Pulse Oximetry 04/26/20 13:15 04/26/20 13:25 04/26/20 13:26 Temperature 36.8 C Pulse Rate 63 67 67 Respiratory Rate 20 Blood Pressure 141/90 H Pulse Oximetry 100 04/26/20 14:00 04/26/20 16:00 04/26/20 18:00 Temperature 36.1 C L Pulse Rate 66 63 61 Respiratory Rate 12 Blood Pressure 139/54 L Pulse Oximetry 94 04/26/20 19:25 04/26/20 20:00 04/26/20 21:47 Temperature 36.5 C Pulse Rate 60 55 L 58 L Respiratory Rate 14 Blood Pressure 153/62 H Pulse Oximetry 92 96 04/26/20 22:00 04/26/20 22:05 04/26/20 23:26 Temperature Pulse Rate 68 Respiratory Rate Blood Pressure Pulse Oximetry 96 94 04/27/20 00:00 04/27/20 02:00 04/27/20 03:21 Temperature 36.2 C L Pulse Rate 57 L 49 L Respiratory Rate 22 H Blood Pressure 137/57 L Pulse Oximetry 99 95 04/27/20 03:23 04/27/20 04:00 04/27/20 06:00 Temperature 36.3 C L Pulse Rate 58 L 57 L 52 L Respiratory Rate 20 22 H Blood Pressure 129/71 Pulse Oximetry 95 97
--- NOTE | 2020-04-27 10:53 | PM.IMPN ---
Progress Note: A&P Assessment and Plan (1) Acute and chronic respiratory failure: Code(s): J96.20 - Acute and chronic respiratory failure, unspecified whether with hypoxia or hypercapnia Status: Acute Assessment and Plan: Patient developed acute respiratory hypoxic distress requiring BiPAP felt related to CHF. Symptoms have improved. Improvement probably related to the Lasix treatment from the emergency room.. Patient has been weaned down to his chronic O2 requirement of 3 L. continue BiPAP at night. Better after 2 dialysis sessions (2) Congestive heart failure: Code(s): I50.9 - Heart failure, unspecified Status: Acute Assessment and Plan: BNP greater than 35,000. Chest x-ray consistent with pulmonary edema. Patient with known chronic diastolic CHF. Suspect acute flare possibly related to dietary indiscretion or delayed dialysis. Lasix given once. Continue hemodialysis to control fluid status. repeat echo (3) Pulmonary embolism: Code(s): I26.99 - Other pulmonary embolism without acute cor pulmonale Status: Inactive Assessment and Plan: Patient had a CTA of the chest in December 2019 showing a right upper lobe and right lower lobe pulmonary emboli with low clot burden. Doppler of the lower extremity was negative for DVT at that time. He had a repeat CTA March 26, 2020 showing no change in the PEs. INR at 1.7 today . Heparin drip . Increased Coumadin to 9 mg 04/26. Patient states takes 4-8 mg as outpatient depending on INR. (4) Erythropoietin deficiency anemia: Code(s): D63.1 - Anemia in chronic kidney disease Status: Acute Assessment and Plan: Hgb mostly runs in the 9-10 range but was 8.5 at time of last discharge on 04/02/20. Hgb 9.0 today. Follow. (5) Hypertension: Code(s): I10 - Essential (primary) hypertension Status: Acute Assessment and Plan: BP noted on admission but felt related to patient being in distress, better but still toward high side . Resumed metoprolol and losartan. (6) End stage renal disease: Code(s): N18.6 - End stage renal disease Status: Acute Assessment and Plan: As above. HD again 04/28 (7) Paroxysmal atrial fibrillation: Code(s): I48.0 - Paroxysmal atrial fibrillation Status: Inactive Assessment and Plan: EKG noted. Patient currently in NSR. Continue Amiodarone. Advanced Coumadin. Continue tele. repeat echo as above Subjective Date/time seen: 04/27/20 10:53 Interval history: Date of service 04/27 69yo male with CHF, ESRD and chronic respiratory failure here for acute respiratory failure. Shoulder feels better. Slept off and on last night. Wore CPAP last night. No CP or SOB. still some edema Exam Narrative: Exam Narrative: AF 98.3 160/70 62 20 100% 3L NC Gen - NARD sittng on side of bed bed Chest - left basal crackkle, CV - RRR S1/S2 and no murmers Abd - Soft, NT, +BS Ext - 1+ pedal edema but slightly decreased by nephrology assesment Psych - Nml mood and affect Skin - Warm and dry Objective Data Vital Signs Vital Signs: Vital Signs - 24 hr 04/26/20 11:00 04/26/20 11:15 04/26/20 11:30 Temperature Pulse Rate 55 L 55 L 67 Respiratory Rate Blood Pressure 138/60 146/52 H 144/55 H Pulse Oximetry 04/26/20 11:45 04/26/20 12:00 04/26/20 12:15 Temperature Pulse Rate 55 L 57 L 56 L Respiratory Rate Blood Pressure 125/62 133/61 121/65 Pulse Oximetry 04/26/20 12:30 04/26/20 12:45 04/26/20 12:55 Temperature 36.8 C Pulse Rate 55 L 59 L 62 Respiratory Rate 18 Blood Pressure 146/76 H 172/78 H 143/70 H Pulse Oximetry 04/26/20 13:15 04/26/20 13:25 04/26/20 13:26 Temperature 36.8 C Pulse Rate 63 67 67 Respiratory Rate 20 Blood Pressure 141/90 H Pulse Oximetry 100 04/26/20 14:00 04/26/20 16:00 04/26/20 18:00 Temperature 36.1 C L Pulse Rat
[2020-04-27] MEDS: PERFLUTREN LIPID MICROSPHERES 1.5 ML VIAL DILUTED TO 10 ML TOTAL VOLUME IV PUSH (12:41)
--- NOTE | 2020-04-27 15:11 | PC.NURSE ---
Transfer received from IMU per bed. Report from MADAI Carranza.
--- NOTE | 2020-04-27 15:38 | PC.NURSE ---
This patient, David Saleh, was transferred to [[facility]] on 04/27/20 at 1508. Personal belongings sent with patient. Report given to [MADAI Smalls ]. Appropriate documentation sent with patient.
[2020-04-27] MEDS: WARFARIN (*PBKC) 4 MG TABLET PO (17:11)
[2020-04-27] MEDS: WARFARIN (*PBKC) 5 MG TABLET PO (17:11)
[2020-04-27] MEDS: LOSARTAN POTASSIUM 100 MG TABLET PO (17:13)
[2020-04-27] MEDS: CHOLECALCIFEROL 1,000 UNITS TABLET 5000 UNITS PO (20:40)
[2020-04-27] MEDS: FLUTICASONE PROPIONATE 0.05% NA SPR 16 GM BTL (*BKC) 1 SPRAY NASAL (20:40)
[2020-04-27] MEDS: ATORVASTATIN 40 MG TABLET PO (20:41)
[2020-04-27] MEDS: traMADol HCL (*CRX) 50 MG TABLET PO (20:44)
[2020-04-27] MEDS: SODIUM CHLORIDE NASAL GEL 14.1 GM 1 APPLIC NASAL (20:45)
[2020-04-27] MEDS: ONDANSETRON INJ 4 MG/2 ML VIAL IV PUSH (20:47)
[2020-04-28] VITALS (32 sets, daily range): BP systolic 117–180; BP diastolic 44–93; PULSE 46–71; RESP 11–20; TEMP 36.2–37; O2SAT 93–100
[2020-04-28] MEDS: GABAPENTIN 100 MG CAPSULE 200 MG PO ×3 (05:05→20:53)
[2020-04-28 06:07] LABS: INR 2.2; Prothrombin Time 25.1 Seconds (11.1-14.7)
[2020-04-28 06:19] LABS: Albumin Level 3.8 g/dL (3.5-5.1); Anion Gap 14 mmol/L (8-16); Blood Urea Nitrogen 36 mg/dL (9-20); Calcium 8.6 mg/dL (8.4-10.2); Carbon Dioxide 29 mmol/L (22-30); Chloride 87 mmol/L (98-107); Estimated CRCL calculation 10 ml/min; Estimated Glomerular Filt Rate 7; Glucose 113 mg/dL (75-110); Phosphorus 7.5 mg/dL (2.5-4.5); Potassium 4.7 mmol/L (3.4-5.0); Sodium 130 mmol/L (137-145)
[2020-04-28 06:22] LABS: Partial Thromboplastin Time > 200.0 SECONDS (22.3-36.8)
[2020-04-28 08:41] LABS: Partial Thromboplastin Time 59.5 SECONDS (22.3-36.8)
[2020-04-28] MEDS: EPOETIN ALFA-EPBX 10,000 UNITS/ML VIAL 10000 UNITS IV PUSH (10:41)
--- NOTE | 2020-04-28 11:51 | PM.PNNEP ---
Progress Note: A&P Assessment and Plan (1) End stage renal disease: Code(s): N18.6 - End stage renal disease Status: Acute Assessment and Plan: continue hemodialysis 3x/week while hospitalized HD today and again tomorrow due to holiday dialysis schedule follow electrolytes, volume status, and clearance (2) DVT (deep venous thrombosis): Code(s): I82.409 - Acute embolism and thrombosis of unspecified deep veins of unspecified lower extremity Status: Acute Assessment and Plan: heparin gtt discontinued since INR therapeutic known history of DVTs and pulmonary emboli (3) Congestive heart failure: Code(s): I50.9 - Heart failure, unspecified Status: Acute Assessment and Plan: known diastolic dysfunction and moderated pulmonary HTN complicated by his excessive fluid intake as well continue aggressive ultrafiltration with HD as tolerated (4) Hypertension: Code(s): I10 - Essential (primary) hypertension Status: Acute Assessment and Plan: reasonable control at this time follow trend of hemodynamics (5) Erythropoietin deficiency anemia: Code(s): D63.1 - Anemia in chronic kidney disease Status: Acute Assessment and Plan: due to ESRD Epogen with HD follow trend of H/H (6) Renal osteodystrophy: Code(s): N25.0 - Renal osteodystrophy Status: Acute Assessment and Plan: phosphorus and calcium relatively stable follow parameters Will continue to follow. Subjective Date/time seen: 04/28/20 11:51 Tolerating dialysis treatment at the time of my visit (seen on HD at 11:35AM); breathing appears stable if not better; no other acute issues or problems voiced at this time; no apparent distress noted. Exam Narrative: Exam Narrative: General: WD/WN male in NAD Heart: normal S1 and S2; no rub Lungs: clear but decreased at bases Abdomen: soft, nontender, nondistended, positive bowel sounds Extremities: no cyanosis or clubbing; 1+ edema Skin: warm and dry Objective Data Vital Signs Vital Signs: Vital Signs Temp Pulse Resp BP Pulse Ox 04/28/20 11:30 56 L 117/50 L 04/28/20 11:15 55 L 162/73 H 04/28/20 11:00 55 L 135/62 04/28/20 10:45 58 L 120/52 L 04/28/20 10:30 36.8 C 53 L 20 130/65 04/28/20 10:15 53 L 173/44 H 04/28/20 10:00 53 L 163/72 H 04/28/20 09:46 53 L 148/71 H 04/28/20 09:00 96 04/28/20 08:00 93 04/28/20 04:48 36.2 C L 71 16 137/68 98 04/28/20 04:00 46 L 04/28/20 00:00 52 L 04/27/20 21:03 15 04/27/20 20:43 60 04/27/20 20:36 36.4 C L 58 L 17 150/83 H 99 04/27/20 20:00 57 L 04/27/20 16:00 58 L 04/27/20 15:40 37.2 C 58 L 16 158/68 H 99 04/27/20 14:00 58 L 04/27/20 12:00 37.1 C 53 L 18 143/66 H 94 Intake/Output Intake/Output: Intake & Output 04/25/20 04/26/20 04/27/20 04/28/20 23:59 23:59 23:59 23:59 Intake Total 2270 1640 2350 628 Output Total 3100 3000 Balance -830 -1360 2350 628 Meds/Results Medications: Active Medications Generic Name Dose Route Start Last Admin Trade Name Freq PRN Reason Stop Dose Admin Acetaminophen 650 mg 04/24/20 17:48 Acetaminophen 325 Mg Tablet PO Q6H PRN Mild Pain (1-3) or Fever Amiodarone HCl 200 mg 04/25/20 09:00 04/27/20 08:47 Amiodarone Hcl 200 Mg Tablet PO 200 mg DAILY LUDWIG Administration Atorvastatin Calcium 40 mg 04/24/20 21:00 04/27/20 20:41 Atorvastatin 40 Mg Tablet PO 40 mg HS LUDWIG Administration Cyanocobalamin 1,000 mcg 04/25/20 09:00 04/27/20 08:48 Cyanocobalamin 1,000 Mcg Tablet PO 1,000 mcg DAILY LUDWIG Administration Epoetin Pablo-epbx 10,000 units 04/28/20 20:09 Epoetin Pablo-Epbx 10,000 Units/Ml Vial IV PUSH 04/28/20 20:10 ONCE ONE Famotidine 20 mg 04/24/20 21:00 04/27/20 20:42 Famotidine 20 Mg Tablet PO 20 mg Q12HR LUDWIG A
--- NOTE | 2020-04-28 13:49 | PCDIET ---
Weekly nutritional screen. Patient is tolerating current diet with adequate intake. No weight loss reported. No nutritional needs at this time.
[2020-04-28] MEDS: CYANOCOBALAMIN 1,000 MCG TABLET 1000 MCG PO (14:18)
[2020-04-28] MEDS: FAMOTIDINE 20 MG TABLET PO ×2 (14:18→20:49)
[2020-04-28] MEDS: SEVELAMER CARBONATE 800 MG TABLET PO ×2 (14:18→17:22)
[2020-04-28] MEDS: FUROSEMIDE 80 MG TABLET PO ×2 (14:19→17:22)
[2020-04-28] MEDS: AMIODARONE HCL 200 MG TABLET PO (14:19)
[2020-04-28] MEDS: METOPROLOL SUCCINATE EXT REL 50 MG TABCR PO ×2 (14:20→20:49)
--- NOTE | 2020-04-28 16:57 | PM.IMPN ---
Progress Note: A&P Assessment and Plan (1) Acute and chronic respiratory failure: Code(s): J96.20 - Acute and chronic respiratory failure, unspecified whether with hypoxia or hypercapnia Status: Acute Assessment and Plan: Patient developed acute respiratory hypoxic distress requiring BiPAP felt related to CHF. Symptoms have improved. Improvement probably related to the Lasix treatment from the emergency room.. Patient has been weaned down to his chronic O2 requirement of 3 L. continue BiPAP at night. Much better after 3 dialysis sessions (2) Congestive heart failure: Code(s): I50.9 - Heart failure, unspecified Status: Acute Assessment and Plan: BNP greater than 35,000. Chest x-ray consistent with pulmonary edema. Patient with known chronic diastolic CHF. Suspect acute flare possibly related to dietary indiscretion or delayed dialysis. Lasix given once. Continue hemodialysis to control fluid status. Repeat echo ejection fraction 45-50 with grade 3 diastolic dysfunction and severe pulmonary hypertension at 61 (3) Pulmonary embolism: Code(s): I26.99 - Other pulmonary embolism without acute cor pulmonale Status: Inactive Assessment and Plan: Patient had a CTA of the chest in December 2019 showing a right upper lobe and right lower lobe pulmonary emboli with low clot burden. Doppler of the lower extremity was negative for DVT at that time. He had a repeat CTA March 26, 2020 showing no change in the PEs. INR at 2.2 today . Heparin drip stopped . Increased Coumadin to 9 mg 04/26. Patient states takes 4-8 mg as outpatient depending on INR. (4) Erythropoietin deficiency anemia: Code(s): D63.1 - Anemia in chronic kidney disease Status: Acute Assessment and Plan: Hgb mostly runs in the 9-10 range but was 8.5 at time of last discharge on 04/02/20. Hgb 9.0 04/27. Follow. (5) Hypertension: Code(s): I10 - Essential (primary) hypertension Status: Acute Assessment and Plan: BP noted on admission but felt related to patient being in distress, better but still toward high side . Resumed metoprolol and losartan. (6) End stage renal disease: Code(s): N18.6 - End stage renal disease Status: Acute Assessment and Plan: As above. HD again today with 3500 ml removed and repeat am with holiday schedule (7) Paroxysmal atrial fibrillation: Code(s): I48.0 - Paroxysmal atrial fibrillation Status: Inactive Assessment and Plan: EKG noted. Patient currently in NSR. Continue Amiodarone. Advanced Coumadin. Continue tele. repeat echo as above Subjective Date/time seen: 04/28/20 16:57 Interval history: Date of service 04/28 69yo male with CHF, ESRD and chronic respiratory failure here for acute respiratory failure. Shoulder feels better. Slept off and on last night. Wore CPAP last night. No CP or SOB. still some edema but improving Exam Narrative: Exam Narrative: AF 98.3 150/70 62 20 96% 3L NC Gen - NARD lying in bed at dialysis Chest - left basal crackle still, CV - RRR S1/S2 and no murmers Abd - Soft, NT, +BS Ext - 1+ pedal edema but slightly decreased Psych - Nml mood and affect Skin - Warm and dry Objective Data Vital Signs Vital Signs: Vital Signs - 24 hr 04/27/20 20:00 04/27/20 20:36 04/27/20 20:43 Temperature 36.4 C L Pulse Rate 57 L 58 L 60 Respiratory Rate 17 Blood Pressure 150/83 H Pulse Oximetry 99 04/27/20 21:03 04/28/20 00:00 04/28/20 04:00 Temperature Pulse Rate 52 L 46 L Respiratory Rate 15 Blood Pressure Pulse Oximetry 04/28/20 04:48 04/28/20 08:00 04/28/20 09:00 Temperature 36.2 C L Pulse Rate 71 58 L Respiratory Rate 16 Blood Pressure 137/68 Pulse Oximetry 98 93 96 04/28/20 09:46 04/28/20 10:00 04/28/20 10:15 Temperature Pulse Rate 53 L 53 L 53 L Respiratory Rate Blood Pr
[2020-04-28] MEDS: LOSARTAN POTASSIUM 100 MG TABLET PO (17:22)
[2020-04-28] MEDS: WARFARIN (*PBKC) 4 MG TABLET PO (17:23)
[2020-04-28] MEDS: FLUTICASONE PROPIONATE 0.05% NA SPR 16 GM BTL (*BKC) 1 SPRAY NASAL (20:48)
[2020-04-28] MEDS: CHOLECALCIFEROL 1,000 UNITS TABLET 5000 UNITS PO (20:49)
[2020-04-28] MEDS: ATORVASTATIN 40 MG TABLET PO (20:49)
[2020-04-28] MEDS: SODIUM CHLORIDE NASAL GEL 14.1 GM 1 APPLIC NASAL (20:53)
[2020-04-29] VITALS (21 sets, daily range): BP systolic 133–168; BP diastolic 51–74; PULSE 45–60; RESP 10–18; TEMP 36–37; O2SAT 93–98
[2020-04-29] MEDS: GABAPENTIN 100 MG CAPSULE 200 MG PO ×2 (05:35→13:47)
[2020-04-29 06:19] LABS: Partial Thromboplastin Time 48.3 SECONDS (22.3-36.8)
[2020-04-29 09:00] LABS: INR 2.1; Prothrombin Time 23.7 Seconds (11.1-14.7)
--- NOTE | 2020-04-29 11:31 | PC.NURSE ---
Had a long conversation with patient regarding dialysis. He wanted to stop and not continue procedure. Education provided at length on why he needs to finish treatment today. Pt was angry and borderline verbally abusive towards the dialysis nurse. Pt eventually conceded and allowed treatment to commence. Dr. Bragg was contacted by the dialysis nurse, so is astride of the situation.
[2020-04-29] MEDS: EPOETIN ALFA-EPBX 10,000 UNITS/ML VIAL 10000 UNITS IV PUSH (12:03)
--- NOTE | 2020-04-29 13:09 | PM.PNNEP ---
Progress Note: A&P Assessment and Plan (1) End stage renal disease: Code(s): N18.6 - End stage renal disease Status: Acute Assessment and Plan: continue hemodialysis 3x/week while hospitalized HD today due to holiday dialysis schedule follow electrolytes, volume status, and clearance (2) DVT (deep venous thrombosis): Code(s): I82.409 - Acute embolism and thrombosis of unspecified deep veins of unspecified lower extremity Status: Acute Assessment and Plan: heparin gtt discontinued since INR therapeutic known history of DVTs and pulmonary emboli (3) Congestive heart failure: Code(s): I50.9 - Heart failure, unspecified Status: Acute Assessment and Plan: known diastolic dysfunction and moderated pulmonary HTN complicated by his excessive fluid intake as well continue aggressive ultrafiltration with HD as tolerated (4) Hypertension: Code(s): I10 - Essential (primary) hypertension Status: Acute Assessment and Plan: reasonable control at this time follow trend of hemodynamics (5) Erythropoietin deficiency anemia: Code(s): D63.1 - Anemia in chronic kidney disease Status: Acute Assessment and Plan: due to ESRD Epogen with HD follow trend of H/H (6) Renal osteodystrophy: Code(s): N25.0 - Renal osteodystrophy Status: Acute Assessment and Plan: phosphorus and calcium relatively stable follow parameters Will continue to follow. Subjective Date/time seen: 04/29/20 13:00 Tolerating dialysis at the time of my visit (seen on HD at 12:40PM); breathing remains stable if not with ongoing improvement; no events overnight or earlier this AM; anxious for discharge. Exam Narrative: Exam Narrative: General: WD/WN male in NAD Heart: normal S1 and S2; no rub Lungs: clear but decreased at bases Abdomen: soft, nontender, nondistended, positive bowel sounds Extremities: no cyanosis or clubbing; 1+ edema Skin: warm and intact Objective Data Vital Signs Vital Signs: Vital Signs Temp Pulse Resp BP Pulse Ox 04/29/20 12:45 54 L 138/64 04/29/20 12:30 54 L 163/71 H 04/29/20 12:11 52 L 153/69 H 04/29/20 12:00 52 L 162/64 H 04/29/20 11:45 53 L 149/63 H 04/29/20 11:30 53 L 152/70 H 04/29/20 11:15 55 L 148/62 H 04/29/20 11:00 54 L 144/64 H 04/29/20 10:45 52 L 161/72 H 04/29/20 10:30 52 L 168/74 H 04/29/20 10:00 37.0 C 55 L 18 154/64 H 04/29/20 08:00 53 L 04/29/20 05:36 36.1 C L 50 L 17 133/51 L 98 04/29/20 04:00 45 L 04/29/20 03:39 10 L 96 04/29/20 00:00 47 L 04/28/20 21:57 53 L 11 L 94 04/28/20 20:50 94 04/28/20 20:49 56 L 04/28/20 20:48 36.2 C L 57 L 18 180/66 H 100 04/28/20 20:00 57 L 04/28/20 16:00 57 L 04/28/20 14:20 62 04/28/20 14:19 62 Intake/Output Intake/Output: Intake & Output 04/26/20 04/27/20 04/28/20 04/29/20 23:59 23:59 23:59 23:59 Intake Total 1640 2350 2538 780 Output Total 3000 3500 Balance -1360 2350 -962 780 Meds/Results Medications: Active Medications Generic Name Dose Route Start Last Admin Trade Name Freq PRN Reason Stop Dose Admin Acetaminophen 650 mg 04/24/20 17:48 Acetaminophen 325 Mg Tablet PO Q6H PRN Mild Pain (1-3) or Fever Amiodarone HCl 200 mg 04/25/20 09:00 04/28/20 14:19 Amiodarone Hcl 200 Mg Tablet PO 200 mg DAILY LUDWIG Administration Atorvastatin Calcium 40 mg 04/24/20 21:00 04/28/20 20:49 Atorvastatin 40 Mg Tablet PO 40 mg HS LUDWIG Administration Cyanocobalamin 1,000 mcg 04/25/20 09:00 04/28/20 14:18 Cyanocobalamin 1,000 Mcg Tablet PO 1,000 mcg DAILY LUDWIG Administration Epoetin Pablo-epbx 10,000 units 04/29/20 20:00 Epoetin Pablo-Epbx 10,000 Units/Ml Vial IV PUSH 04/29/20 20:01 ONCE ONE Famotidine 20 mg 04/24/20 21:00 04/28/20 20:49
[2020-04-29] MEDS: SEVELAMER CARBONATE 800 MG TABLET PO (13:47)
[2020-04-29] MEDS: CYANOCOBALAMIN 1,000 MCG TABLET 1000 MCG PO (13:47)
[2020-04-29] MEDS: FAMOTIDINE 20 MG TABLET PO (13:47)
[2020-04-29] MEDS: METOPROLOL SUCCINATE EXT REL 50 MG TABCR PO (13:48)
[2020-04-29] MEDS: AMIODARONE HCL 200 MG TABLET PO (13:48)
[2020-04-29] MEDS: FUROSEMIDE 80 MG TABLET PO (13:48)
--- NOTE | 2020-04-29 18:22 | PM.DS ---
DS: Admitting Diagnosis Admitting Diagnosis Admitting Diagnosis: Acute respiratory on chronic respiratory failure secondary to congestive heart failure DS: Discharge Diagnosis Discharge Diagnosis (1) Acute and chronic respiratory failure: Code(s): J96.20 - Acute and chronic respiratory failure, unspecified whether with hypoxia or hypercapnia Status: Acute Assessment and Plan: Patient developed acute respiratory hypoxic distress requiring BiPAP felt related to CHF. Symptoms have improved. Improvement probably related to the Lasix treatment from the emergency room. And hemodialysis.. Patient has been weaned down to his chronic O2 requirement of 3 L. continue BiPAP at night. Much better after 4 dialysis [place] [address] [place] of fluid total (2) Congestive heart failure: Code(s): I50.9 - Heart failure, unspecified Status: Acute Assessment and Plan: BNP greater than 35,000. Chest x-ray consistent with pulmonary edema. Patient with known chronic diastolic CHF. Suspect acute flare possibly related to dietary indiscretion or delayed dialysis. Lasix given once. Continue hemodialysis to control fluid status. Repeat echo ejection fraction 45-50 with grade 3 diastolic dysfunction and severe pulmonary hypertension at 61 (3) Pulmonary embolism: Code(s): I26.99 - Other pulmonary embolism without acute cor pulmonale Status: Inactive Assessment and Plan: Patient had a CTA of the chest in December 2019 showing a right upper lobe and right lower lobe pulmonary emboli with low clot burden. Doppler of the lower extremity was negative for DVT at that time. He had a repeat CTA March 26, 2020 showing no change in the PEs. INR at 2.1 today 04/29. Maintained on heparin drip until INR was therapeutic 04/28. Increased Coumadin to 9 mg 04/26. Patient states takes 4-8 mg as outpatient depending on INR. Will be discharged on warfarin 9 daily to have INR drawn and 6-7 days (4) Erythropoietin deficiency anemia: Code(s): D63.1 - Anemia in chronic kidney disease Status: Acute Assessment and Plan: Hgb mostly runs in the 9-10 range but was 8.5 at time of last discharge on 04/02/20. Hgb 9.0 04/27. Follow. (5) Hypertension: Code(s): I10 - Essential (primary) hypertension Status: Acute Assessment and Plan: BP noted on admission but felt related to patient being in distress, better but still toward high side . Resumed metoprolol and losartan. (6) End stage renal disease: Code(s): N18.6 - End stage renal disease Status: Acute Assessment and Plan: As above. Usual schedule is Sunday. Had extra session today 04/29 since center will be closed on the . He will resume his usual schedule 05/03/2020. He had a total of 4 sessions while here and as above stated removing 94321 mL of fluid. (7) Paroxysmal atrial fibrillation: Code(s): I48.0 - Paroxysmal atrial fibrillation Status: Inactive Assessment and Plan: EKG noted. Patient currently in NSR. Continue Amiodarone. Advanced Coumadin to 9 mg daily with INR of 2.1. DS: Summary Hospital Course Hospital Course: Date of discharge and date of visit 04/29 61-year-old male with end-stage renal disease on dialysis with paroxysmal AFib, hypertension, and history of heart failure admitted in respiratory failure. Failure thought secondary to his congestive heart failure. With repeated dialysis sessions and removal of fluid, 56703 mL in 4 sessions, his respiratory status greatly improved and was able to be discharged home. INR was 2.1 at discharge. He will resume his usual dialysis session Sunday on 05/03/2020. 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
== END 2020-04-29 15:00 | disposition home or self-care (01) | DRG 291 ==
LOC: ANHED 08:53 → ANHIMU 11:14 → ANH3MED 04-27 16:34 → ANHIMU 05-04 15:48
PROVIDERS: Internal Medicine; Internal Medicine Nephrology; Student in an Organized Health Care Education/Training Program; Admitting Provider Family Medicine; Emergency Provider General Practice; PCP Family Medicine; Visit Provider Internal Medicine
DX: I13.2 Hypertensive heart and chronic kidney disease with heart failure and with stage 5 chronic kidney disease, or end stage renal disease (principal); J96.21 Acute and chronic respiratory failure with hypoxia; N18.6 End stage renal disease; I50.33 Acute on chronic diastolic (congestive) heart failure; I26.99 Other pulmonary embolism without acute cor pulmonale; I82.409 Acute embolism and thrombosis of unspecified deep veins of unspecified lower extremity; I27.20 Pulmonary hypertension, unspecified; D63.1 Anemia in chronic kidney disease; Z99.81 Dependence on supplemental oxygen; Z99.2 Dependence on renal dialysis; I48.0 Paroxysmal atrial fibrillation; M25.512 Pain in left shoulder; I71.4 Abdominal aortic aneurysm, without rupture; I25.10 Atherosclerotic heart disease of native coronary artery without angina pectoris; I25.5 Ischemic cardiomyopathy; F41.8 Other specified anxiety disorders; G47.33 Obstructive sleep apnea (adult) (pediatric); N25.0 Renal osteodystrophy; Z79.01 Long term (current) use of anticoagulants; Z79.899 Other long term (current) drug therapy; Z88.0 Allergy status to penicillin; Z86.73 Personal history of transient ischemic attack (TIA), and cerebral infarction without residual deficits; Z87.891 Personal history of nicotine dependence; Z95.1 Presence of aortocoronary bypass graft
CPT/HCPCS: 36415; 36600; 71045; 73030; 80048; 80069; 82375; 82805; 83050; 83880; 84484; 85025; 85027; 85610; 85730; 93005; 94002; 94003; 96372; 96375; 99291; A9270; C8929; G0257; G0378; J1644; J1650; J1940; J2405; J7030; Q5106; Q9957

== ENCOUNTER 2020-09-20 08:17 | Inpatient (IN) | payer MEDICARE, SELFPAY ==
[2020-09-20] VITALS (32 sets, daily range): BP systolic 87–205; BP diastolic 46–97; PULSE 41–77; RESP 11–25; TEMP 36–38; O2SAT 95–100; BMI 64.2
--- NOTE | ~2020-09-20 | XR_ITS ---
EXAMINATION: XR chest 1V portable DATE: 09/20/2020 08:49 INDICATION: Dyspnea. TECHNIQUE: A single frontal view of the chest was obtained. COMPARISON: Chest single view 04/27/2020, chest CT 03/25/2020 FINDINGS: There is a diffuse interstitial pattern in the lungs. There are mild airspace opacities in the mid and lower lung zones. There are small pleural effusions. No pneumothorax. Cardiomegaly is not ed. Median sternotomy wires are noted. IMPRESSION: 1. Diffuse lung disease, consistent with pulmonary edema or less likely pneumonia. 2. Small pleural effusions. 3. Cardiomegaly. Reviewed, dictated and finalized at location B. IMPRESSION: 1. Diffuse lung disease, consistent with pulmonary edema or less likely pneumon ia. 2. Small pleural effusions. 3. Cardiomegaly.
--- NOTE | ~2020-09-20 | XR_ITS ---
XR chest port-a-cath/central 09/20/2020 16:45 Indication: Tunneled dialysis catheter Procedure: AP portable chest Comparison: Comparison to multiple prior studies sequentially, with oldest reviewed study dated 03/31. Findings: Large bore central venous catheter tips in the SVC. Status post median sternotomy for CABG. Cardiomegaly with pulmonary edema. Small pleural effusions. No pneumothorax. Impression: 1: Cardiomegaly with pulmonary edema. Small pleural effusions. Reviewed, dictated and finalized at location A. Impression: 1: Cardiomegaly with pulmonary edema. Small pleural effusions.
--- NOTE | ~2020-09-20 | XR_ITS ---
XR fl guide central line place 09/20/2020 16:42 Indication: Insertion of dialysis catheter Procedure: 2 fluoroscopic images of the left upper chest. 178 seconds of fluoroscopy. Comparison: Chest dated 09/20/2020 Findings: There is a left internal jugular dialysis catheter, partially visualized. Resolution of the lung parenchyma is limited. There are median sternotomy wires partially visualized. Impression: 1: Status post recent placement of left internal jugular dialysis catheter. Please refer to procedura l report for details. Reviewed, dictated and finalized at location A. Impression: 1: Status post recent placement of left internal jugular dialysis catheter. Ple ase refer to procedural report for details.
--- NOTE | ~2020-09-20 | XR_ITS ---
EXAMINATION: XR chest 1V portable DATE: 09/20/2020 13:14 INDICATION: Central venous catheter placement attempt. TECHNIQUE: A single frontal view of the chest was obtained. COMPARISON: Chest single view at 8:48 AM FINDINGS: There are airspace opacities in the lower lung zones. No pleural effusion or pneumothorax. Cardiomegaly is noted. Median sternotomy wires and mediastinal surgical clips are seen, likely from p rior coronary artery bypass grafting. IMPRESSION: 1. No pneumothorax. 2. Airspace opacities in the lower lung zones, consistent with atelectasis versus pneumonia. 3. Cardiomegaly. Reviewed, dictated and finalized at location B. IMPRESSION: 1. No pneumothorax. 2. Airspace opacities in the lower lung zones, consistent with atelectasis vers us pneumonia. 3. Cardiomegaly.
--- NOTE | 2020-09-20 08:19 | ECG_ITS ---
SINUS BRADYCARDIA WITH FIRST DEGREE AV BLOCK DELAYED PRECORDIAL R/S TRANSITION ST-T WAVE ABNORMALITY IN LAT/HIGH LAT LEADS- CONSIDER ISCHEMIA BASELINE ARTIFACT- I, II, III, AVR, AVL, AVF ABNORMAL ECG Electronically Signed On 09-21-2020 10:22:06 CDT by Cristhian WEINBERG
[2020-09-20] MEDS: FUROSEMIDE INJ 40 MG/4 ML VIAL IV PUSH (08:29)
[2020-09-20 08:32] LABS: Alveolar/Arterial O2 Gradient 161.2 mmHg; Base Excess ABG -1.9 mEq/l (+/-2.0); Fractional Inspired Oxygen 50 %; HCO3 ABG 23.7 mEq/l (22.0-26.0); Oxygen Content ABG 16.9 %vol (16.0-22.0); Oxygen Saturation ABG 99.3 % (95.0-100.0); Oxyhemoglobin 97.7 % THb (90.0-100.0); PCO2 ABG 43.4 mmHg (35.0-45.0); PO2 ABG 199.9 mmHg (80.0-100.0); pH ABG 7.355 (7.350-7.450)
[2020-09-20 08:33] LABS: Device NON-INVASIVE VENT; Modified Allen's Test Pass; Non-Invasive Expiratory Pressure 6 CMH2O; Non-Invasive Inspiratory Pressure 14 CMH2O; Non-Invasive Vent Rate 10 /MIN; Site Drawn LEFT RADIAL
[2020-09-20] MEDS: NITROGLYCERIN OINTMENT 1 INCH DOSE 0.5 INCH TRANSDERM (08:40)
--- NOTE | 2020-09-20 09:03 | ED.SOB ---
HPI - SOB/Dyspnea General Chief Complaint: Shortness of Breath/Dyspnea Stated Complaint: SOB Source: RN notes reviewed History of Present Illness HPI Narrative: Patient presents to emergency department from dialysis via EMS for respiratory distress. Patient gone to dialysis this morning his last dialysis was Sunday and he has gained 5-1/2 pounds since that time. At that time the patient's graft was felt to be clotted unable to be accessed and had mother arranging for the patient to follow-up for this he went into respiratory distress patient's blood pressures went up into the 200s when EMS arrived the patient had been given clonidine by dialysis and was placed on a CPAP which he continues to remain on he denies any fevers or chills chest pain abdominal pain nausea vomiting or any other symptoms Related Data Home Medications Medication Instructions Recorded Confirmed amiodarone 200 mg PO DAILY 01/21/20 03/26/20 fluticasone propionate 2 spray INTRANASAL HS 01/21/20 03/26/20 gabapentin [Neurontin] 200 mg PO TID 01/21/20 03/26/20 levalbuterol tartrate 2 puff INHALATION HS 01/21/20 03/26/20 nitroglycerin 0.4 mg SUBLINGUAL PRN PRN 01/21/20 03/26/20 tramadol 50 - 100 mg PO Q6H PRN 01/21/20 03/26/20 amiodarone 200 mg PO DAILY 04/24/20 04/24/20 atorvastatin 40 mg PO HS 04/24/20 04/24/20 cholecalciferol (vitamin D3) 5,000 units PO HS 04/24/20 04/24/20 coQ10 (ubiquinol) 200 mg PO DAILY 04/24/20 04/24/20 cyanocobalamin (vitamin B-12) 1,000 mcg PO DAILY 04/24/20 04/24/20 fluticasone propionate 1 spray INTRANASAL DAILY 04/24/20 04/24/20 furosemide 80 mg PO BID 04/24/20 04/24/20 gabapentin 100 mg PO TID 04/24/20 04/24/20 levalbuterol tartrate 2 puff INHALATION Q6H PRN 04/24/20 04/24/20 losartan 100 mg PO QPM 04/24/20 04/24/20 metoprolol succinate 50 mg PO BID 04/24/20 04/24/20 nitroglycerin 0.4 mg SUBLINGUAL Q5MIN PRN 04/24/20 04/24/20 sevelamer carbonate [Renvela] 800 mg PO TIDWMEAL 04/24/20 04/24/20 tramadol 50 mg PO Q6H PRN 04/24/20 04/24/20 Allergies Allergy/AdvReac Type Severity Reaction Status Date / Time atorvastatin Allergy Unknown Rash Verified 04/28/20 06:32 Penicillins Allergy Unknown Verified 04/28/20 06:32 Review of Systems Review of Systems: Narrative: Gen.: Denies fevers or chills ENT: Denies congestion Respiratory: D see HPI CV: Denies chest pain or palpitations GI: Denies abdominal pain nausea, emesis or diarrhea reports chronic renal failure dialysis Musculoskeletal: Denies back pain or muscle pain Neuro: Denies numbness, tingling, weakness or focal weakness Skin: Denies rash Except as documented, all other systems reviewed and negative [facility] Past Medical History Medical History AAA (abdominal aortic aneurysm) Stable mid abdominal aortic saccular aneurysm measuring 4.2 cm on imaging dated 01/21/2020 Aneurysm of infrarenal abdominal aorta Stable mid abdominal aortic saccular aneurysm measuring 4.2 cm on imaging dated 01/21/2020. Bacterial infection due to Proteus mirabilis ~10/2018; Secondary to infected dialysis catheter Bacterial infection due to Proteus mirabilis (~10/2018) Secondary to infected dialysis catheter. C. difficile diarrhea 04/2018 C. difficile diarrhea (~04/2018) CAD (coronary artery disease) Cardiac catheterization in March 2018 doing showed total occlusion of the obtuse and left main with severe disease in the LAD in which she was transferred to [facility] for urgent 2 vessel CABG. 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 Chronic anemia Chronic anemia Chronic respiratory failure with hypoxia, on home oxygen therapy On 2L nasal cannula Chronic respiratory failure with hypoxia, on home oxygen therapy On 2 L nasal cannula. Congestive heart failure Echo in Dec 2019 showed EF 55-60%, Grade 3 DD and HK apical septum and inferoapical beyer. Moderate Pulm HTN (48) Congestive heart failure Echocardiogra
[2020-09-20 09:07] LABS: Basophils Absolute Auto 0.1 K/mm3 (0.0-0.1); Basophils Percent Auto 0.4 % (0.2-1.2); Eosinophils Absolute Auto 0.2 K/mm3 (0-0.3); Eosinophils Percent Auto 2.1 % (0-4.4); Hemoglobin 10.4 g/dL (14.0-18.0); Immature Granulocyte Absolute 0.08 K/mm3 (0.00-0.031); Immature Granulocyte Percent A 0.7 % (0-0.5); Lymphocytes Absolute Auto 0.94 K/mm3 (0.9-3.2); Lymphocytes Percent Auto 8.1 % (18.3-44.2); Mean Corpuscular HGB Conc 33.5 g/dl (32-36); Mean Corpuscular Hemoglobin 32.6 pg (26-34); Mean Corpuscular Volume 97.2 fl (80-100); Mean Platelet Volume 8.7 fl (7.4-10.4); Monocytes Absolute Auto 0.9 K/mm3 (0.1-0.6); Monocytes Percent Auto 8.1 % (2.6-8.5); Neutrophils Absolute Auto 9.3 K/mm3 (1.3-6.7); Neutrophils Percent Auto 80.6 % (45.5-73.1); Platelet Count Result 375 k/mm3 (150-375); Red Blood Count 3.19 M/mm3 (4.6-6.20); Red Cell Distribution Width 14.6 % (11.5-14.5); White Blood Count 11.6 K/mm3 (4.5-10.0)
[2020-09-20 09:16] LABS: INR 1.8; Prothrombin Time 21.2 Seconds (11.1-14.7)
[2020-09-20 09:17] LABS: Alanine Aminotransferase 11 U/L (4-50); Alkaline Phosphatase 91 U/L (38-126); Anion Gap 10 mmol/L (8-16); Aspartate Amino Transferase 16 U/L (17-59); Bilirubin,Total 0.5 mg/dL (0.2-1.3); Blood Urea Nitrogen 47 mg/dL (9-20); Calcium 8.6 mg/dL (8.4-10.2); Carbon Dioxide 26 mmol/L (22-30); Chloride 90 mmol/L (98-107); Estimated CRCL calculation 10 ml/min; Estimated Glomerular Filt Rate 6; Glucose 187 mg/dL (75-110); Potassium 5.3 mmol/L (3.4-5.0); Sodium 126 mmol/L (137-145)
[2020-09-20 09:17] LABS: Partial Thromboplastin Time 37.6 SECONDS (22.3-36.8)
[2020-09-20 09:31] LABS: NT Pro B Type Natriuretic Pept > 35000 pg/mL (5-100); Troponin I 0.035 ng/mL (0.000-0.034)
--- NOTE | 2020-09-20 09:56 | WPDCNINT ---
Assessment and Plan Assessment and plan (1) Acute respiratory failure: Code(s): J96.00 - Acute respiratory failure, unspecified whether with hypoxia or hypercapnia Status: Acute Assessment and Plan: Acute Respiratory failure secondary to pulmonary edema from volume overload from end-stage renal dialysis Patient currently on BiPAP Chest x-ray and ABG reviewed Will plan for emergent hemodialysis once patient arrives to ICU (2) Pulmonary edema: Code(s): J81.1 - Chronic pulmonary edema Status: Acute (3) End-stage renal disease on hemodialysis: Code(s): N18.6 - End stage renal disease; Z99.2 - Dependence on renal dialysis Status: Chronic Assessment and Plan: Patient's AV graft is not working as per nephrology Risks and benefits of temporary hemodialysis catheter were discussed with patient. Explained the increased risk of bleeding secondary to him being on anticoagulation. Also explained other risks like infection, damage to carotid artery and pneumothorax. Patient verbalized understanding and agreed to proceed Nephrology will plan to set of hemodialysis (4) Essential hypertension: Code(s): I10 - Essential (primary) hypertension Status: Chronic Assessment and Plan: Blood pressure improved after treatment in ED Continue home medication at this time (5) Paroxysmal atrial fibrillation: Code(s): I48.0 - Paroxysmal atrial fibrillation Status: Chronic Assessment and Plan: Continue amiodarone and aspirin (6) Congestive heart failure: Code(s): I50.9 - Heart failure, unspecified Status: Acute Assessment and Plan: Hemodialysis to remove fluid (7) Current use of skilled nursing anticoagulation: 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 Status: Acute Assessment and Plan: Will continue warfarin Daily monitoring of INR (8) Pulmonary embolism: Qualifiers: Acute cor pulmonale presence: without acute cor pulmonale Chronicity: acute Pulmonary embolism type: unspecified Qualified Code(s): I26.99 - Other pulmonary embolism without acute cor pulmonale Code(s): I26.99 - Other pulmonary embolism without acute cor pulmonale Status: Acute Assessment and Plan: Has above-mentioned patient is on anticoagulation with warfarin (9) Hyperkalemia: Code(s): E87.5 - Hyperkalemia Status: Acute Assessment and Plan: Will give insulin and D50 (10) History of diabetes mellitus: Code(s): Z86.39 - Personal history of other endocrine, nutritional and metabolic disease Status: Chronic Assessment and Plan: And p.o. Sliding scale insulin Additional Plan DVT prophylaxis -patient is on therapeutic anticoagulation in the form of warfarin Nutrition -NPO Code Status - Full Code Total Critical Care Time - 40 minutes Due to a high probability of clinically significant, life threatening deterioration, the patient required my highest level of preparedness to intervene emergently and I personally spent this critical care time directly and personally managing the patient. This critical care time included obtaining a history; examining the patient; pulse oximetry; ordering and review of studies; arranging urgent treatment with development of a management plan; evaluation of patient's response to treatment; frequent reassessment; and discussions with other providers. It was exclusive of separately billable procedures and treating other patients and teaching time. Please see Assessment and Plan section and the rest of the note for further information on patient assessment and treatment Procurement Agent Consult Note Consult date: 09/20/20 Time Seen: 10:00 HPI: David Saleh is a 69 year old male with CHF, ESRD and PE on warfarin who was sent from his dialysis center with shortness of breath. Patient was at his baseline until yesterday evening when he started feeling s
--- NOTE | 2020-09-20 11:25 | ADMGEN ---
This patient, David Saleh, was admitted to Intensive Care Unit-4 at 1100 via stretcher from ED without issue. Patient/family oriented to hospital policies and general routines including ID bracelet, bed and alarms, visiting hours, pain management, procedures, bathroom and other care routines, personal items, smoking policy, room service/diet, and visiting hours. Information on how to activate the Rapid Response Team has been discussed. Patient/Family are encouraged to report perceived risks to care and to ask questions if they do not understand what they are told or what they should do.
--- NOTE | 2020-09-20 11:37 | ADMGEN ---
This patient, David Saleh, was admitted to Intensive Care Unit-4. Patient/family oriented to hospital policies and general routines including ID bracelet, bed and alarms, visiting hours, pain management, procedures, bathroom and other care routines, personal items, smoking policy, room service/diet, and visiting hours. Information on how to activate the Rapid Response Team has been discussed. Patient/Family are encouraged to report perceived risks to care and to ask questions if they do not understand what they are told or what they should do.
[2020-09-20] MEDS: HYDROmorphone HCL INJ (*CRX) 1 MG/ML SYR IV PUSH (12:10)
--- NOTE | 2020-09-20 12:55 | P.PCNBED_ITS ---
Procedures Central Line Placement Right IJ: Central Line Date: 09/20/20 Central Line Time: 11:00 Discussed w/ the patient/family/POA,the placement of a central venous catheter, including its clinical necessity/indication & associated potential risks, benifits and alternatives.: Yes The patient/family/POA understand(s) and acknowledge(s) the need to proceed with central venous catheter insertion as an important element of the patient's clinical management.: Yes Consent: Informed consent was obtained from patient after explanation of risks and benefits Time Out Performed: Yes Patient Position: trendelenburg Patient placed on monitor/pulse ox: Yes Provider Prep: mask, sterile gown, sterile gloves, Max. sterile barrier precautions and cap Central line prep: 2% Chlorhexidine scrub Local anesthesia used: lidocaine 1% Amount of anesthesia used (ml): 5 Sterile US Technique with sterile gel/sterile probe covers: Yes Post procedure x-ray: no pneumothorax seen Patient tolerated procedure: other Additional comments: Patient had a very small vein on the right side. Despite local anesthetic patient continue to move the procedure. Twice I was able cannulate vein but unable to pass guidewire to a sufficient length. Despite multiple attempts procedure was unsuccessful and was aborted. Chest x- rays done and I do not see any pneumothorax although radiology report is pending at this time
--- NOTE | 2020-09-20 12:57 | WPDPROCEDUR ---
Procedures Central Line Placement Left IJ: Central Line Date: 09/20/20 Central Line Time: 11:45 Discussed w/ the patient/family/POA,the placement of a central venous catheter, including its clinical necessity/indication & associated potential risks, benifits and alternatives.: Yes The patient/family/POA understand(s) and acknowledge(s) the need to proceed with central venous catheter insertion as an important element of the patient's clinical management.: Yes Consent: Informed consent was obtained from patient after explanation of risks and procedures Time Out Performed: Yes Patient Position: trendelenburg Patient placed on monitor/pulse ox: Yes Provider Prep: mask, sterile gown, sterile gloves, Max. sterile barrier precautions and cap Central line prep: 2% Chlorhexidine scrub and sterile full body sheet applied Local anesthesia used: lidocaine 2% Amount of anesthesia used (ml): 5 Sterile US Technique with sterile gel/sterile probe covers: Yes Post procedure x-ray: no pneumothorax seen Patient tolerated procedure: other Complications: other Additional comments: It patient had a big vein on the left side and was easily cannulated. Again I was only able to advance guidewire up to half of length which I thought would be sufficient. I dilated the vein with the sequentially with different size of dilators. I was unable to advance the catheter to its full length of 20 cm.. I tried to advance 16 cm catheter but again it would not go in fully. Procedure was aborted. I withdrew guidewire and it was kinked/bent probably the cause why the catheter would not advance up to full length. Patient has had several catheters in the past on both sides and scars on his neck are visible. Pressure was held on the neck at the site to prevent further bleeding as patient is on anticoagulation. Patient is adamantly refusing femoral site for dialysis catheter. I have spoken general surgery Dr. Mello who will try to place a catheter under fluoro in OR today
[2020-09-20] MEDS: INSULIN HUMAN REGULAR (*BKC) 100 UNITS/ML 10 UNITS IV PUSH (13:26)
[2020-09-20] MEDS: DEXTROSE 50% 25 GM/50 ML SYRINGE IV PUSH (13:26)
--- NOTE | 2020-09-20 13:26 | PM.CNGS ---
Assessment and Plan Assessment and plan (1) Failure of hemodialysis access: Code(s): T82.49XA - Other complication of vascular dialysis catheter, initial encounter Status: Acute Assessment and Plan: The patient has had multiple hemodialysis access sites in the past. He has a graft in the right lower arm that does not function and a fistula in the right upper arm that he has been using for about the past year for hemodialysis access. They were unable to use the right upper arm fistula at dialysis today and felt that this had clotted. After admission, the Glass Blower attempted temporary dialysis catheter placement x 2, but was unable to successfully get this placed at the bedside. We have been asked to place a tunneled dialysis catheter under fluoroscopy. We discussed proceeding with this today so that he could receive dialysis due to his pulmonary edema and acute respiratory failure. Initially, the patient refused and wanted to be transferred to [facility] where his vascular surgeon is located. After the patient discussed this further with the Glass Blower, the patient agreed to proceed with surgery today and continue treatment at [facility]. Dr. Mello will take the patient to the OR today for placement of tunneled dialysis catheter under fluoroscopy. Thank you for allowing us to see the patient in consultation. (2) Acute respiratory failure with hypoxia: Code(s): J96.01 - Acute respiratory failure with hypoxia Status: Acute Assessment and Plan: Secondary to pulmonary edema. Patient on BiPAP in the ICU. Will need urgent hemodialysis, see plan above for access. (3) Pulmonary edema: Code(s): J81.1 - Chronic pulmonary edema Status: Acute Assessment and Plan: See plan above. (4) End-stage renal disease on hemodialysis: Code(s): N18.6 - End stage renal disease; Z99.2 - Dependence on renal dialysis Status: Chronic (5) Paroxysmal atrial fibrillation: Code(s): I48.0 - Paroxysmal atrial fibrillation Status: Chronic (6) Current use of half-way anticoagulation: Code(s): Z79.01 - skilled nursing (current) use of anticoagulants Status: Acute (7) Pulmonary embolism: Code(s): I26.99 - Other pulmonary embolism without acute cor pulmonale Status: Inactive (8) Congestive heart failure: Code(s): I50.9 - Heart failure, unspecified Status: Acute (9) Abdominal aortic aneurysm: Code(s): I71.4 - Abdominal aortic aneurysm, without rupture Status: Acute (10) Obstructive sleep apnea on CPAP: Code(s): G47.33 - Obstructive sleep apnea (adult) (pediatric); Z99.89 - Dependence on other enabling machines and devices Status: Chronic Additional Plan I have discussed the patient's case and plan of care with Dr. Mello. History of Present Illness Consult details Consult date: 09/20/20 Reason for consult: other (Placement of tunneled hemodialysis catheter) Requesting physician: Abraham Klein MD Narrative: This is a 69-year-old male with a history of multiple medical problems, including but no limited to, end-stage renal disease on hemodialysis, congestive heart failure, ischemic cardiomyopathy, and paroxysmal atrial fibrillation on chronic anticoagulation. He presented to the ER via EMS from dialysis for respiratory distress. In dialysis, it was felt that his right upper arm fistula was clotted and they were unable to access this. He went into respiratory distress and became hypertensive. He was given clonidine and placed on a CPAP at dialysis and transferred to the ER for evaluation. In the ER, the patient was found to be in acute respiratory failure secondary to pulmonary edema in the setting of end-stage renal failure. He was admitted to the ICU and the Glass Blower was consulted. The patient has had multiple previous dialysis access sites, including tunneled dialysis catheters x 2, temporary dialysis catheters, and two separate right u
--- NOTE | 2020-09-20 13:53 | P.PNCROSS_ITS ---
Event Note Event Note Event Note: Patient continues to refuse dialysis catheter now as he believes that he can go to [facility] in get his graft opened up. I explained to him that he will have to leave against medical advice if he wants to go to [facility] at this time. I recommended that we place a temporary catheter to dialyze him and then transfer him once he is more stable. He did call the surgeon's office and his family and after extensive discussion has finally agreed for temporary dialysis catheter. He still is refusing catheter to be placed in femoral area.
[2020-09-20 14:02] LABS: Glucose Point of Care 224 mg/dl (65-105)
--- NOTE | 2020-09-20 14:41 | WPDHPUPDATE1 ---
History and Physical Update Update Date/Time: 09/20/20 14:41 History and Physical has been reviewed, including an updated exam of the patient. There are NO changes in the patient's condition. Risks, benefits, and alternatives have been discussed and questions answered. Patient agrees to proceed with procedure.
--- NOTE | 2020-09-20 15:00 | PC.NURSE ---
Patient to recovery for line placement per Dr. Mello.
--- NOTE | 2020-09-20 15:21 | WPDANESEPPF ---
Anes - Initial Pre Proc Eval Procedure: Operation Date: 09/20/20 15:00 Proposed Procedures p Insertion Tunnelled Dialysis Catheter - Lalo Mello DO Date/Time: 09/20/20 15:21 Surgeon: Sameer Purcell MD Pre Op Diagnosis: Acute respiratory failure with hypoxia/pulmonary e Patient Data Age: 69 Gender: M Height: 5 ft 6 in Weight: 180.5 kg Last Vital Signs Temp 36.7 C 09/20/20 12:00 Pulse 56 L 09/20/20 12:00 Resp 16 09/20/20 12:00 BP 168/75 H 09/20/20 12:00 Pulse Ox 95 09/20/20 13:31 Allergies Allergy/AdvReac Type Severity Reaction Status Date / Time atorvastatin Allergy Unknown Rash Verified 04/28/20 06:32 Penicillins Allergy Unknown Verified 04/28/20 06:32 Home Medications Medication Instructions Recorded Confirmed Type gabapentin [Neurontin] 200 mg PO TID 01/21/20 09/20/20 History amiodarone 200 mg PO EVERY OTHER DAY 04/24/20 09/20/20 History atorvastatin 40 mg PO HS 04/24/20 09/20/20 History cyanocobalamin (vitamin B-12) 1,000 mcg PO DAILY 04/24/20 09/20/20 History fluticasone propionate 1 spray INTRANASAL DAILY 04/24/20 09/20/20 History levalbuterol tartrate 2 puff INHALATION Q6H PRN 04/24/20 09/20/20 History losartan 100 mg PO QPM 04/24/20 09/20/20 History metoprolol succinate 50 mg PO QPM 04/24/20 09/20/20 History tramadol 50 mg PO Q6H PRN 04/24/20 09/20/20 History cholecalciferol (vitamin D3) 125 mcg PO DAILY 09/20/20 09/20/20 History coenzyme Q10 200 mg PO DAILY 09/20/20 09/20/20 History metoprolol succinate 25 mg PO QAM 09/20/20 09/20/20 History pantoprazole 40 mg PO QAM 09/20/20 09/20/20 History sucroferric oxyhydroxide 500 mg PO TIDWM 09/20/20 09/20/20 History warfarin 4 mg PO DAILY 09/20/20 09/20/20 History Laboratory Tests 09/20/20 09/20/20 09/20/20 08:30 08:57 08:58 WBC 11.6 K/mm3 H K/mm3 (4.5-10.0) RBC 3.19 M/mm3 L M/mm3 (4.6-6.20) Hgb 10.4 g/dL L g/dL (14.0-18.0) Hct 31.0 % L % (42.0-52.0) MCV 97.2 fl fl (80-100) MCH 32.6 pg pg (26-34) MCHC 33.5 g/dl g/dl (32-36) RDW 14.6 % H % (11.5-14.5) Plt Count 375 k/mm3 k/mm3 (150-375) MPV 8.7 fl fl (7.4-10.4) Immature Gran % (Auto) 0.7 % H % (0-0.5) Neut % (Auto) 80.6 % H % (45.5-73.1) Lymph % (Auto) 8.1 % L % (18.3-44.2) Dukes % (Auto) 8.1 % % (2.6-8.5) Eos % (Auto) 2.1 % % (0-4.4) Baso % (Auto) 0.4 % % (0.2-1.2) Lymph # (Auto) 0.94 K/mm3 K/mm3 (0.9-3.2) Dukes # (Auto) 0.9 K/mm3 H K/mm3 (0.1-0.6) Eos # (Auto) 0.2 K/mm3 K/mm3 (0-0.3) Baso # (Auto) 0.1 K/mm3 K/mm3 (0.0-0.1) Abs Immat Gran (auto) 0.08 K/mm3 H K/mm3 (0.00-0.031) Absolute Neuts (auto) 9.3 K/mm3 H K/mm3 (1.3-6.7) Absolute Nucleated RBC 0.0 K/mm3 K/mm3 (0.0-0.012) Nucleated RBC % 0.0 % % (0.0-0.2) PT INR APTT Puncture Site Left radial ABG pH 7.355 (7.350-7.450) ABG pCO2 43.4 mmHg mmHg (35.0-45.0) ABG pO2 199.9 mmHg H mmHg (80.0-100.0) ABG PO2/FiO2 Ratio 4.00 % % ABG HCO3 23.7 mEq/l mEq/l (22.0-26.0) ABG O2 Saturation 99.3 % % (95.0-100.0) ABG O2 Content 16.9 %vol %vol (16.0-22.0) ABG Base Excess -1.9 mEq/l mEq/l (+/-2.0) A-a Gradient 161.2 mmHg mmHg Oxyhemoglobin 97.7 % THb % THb (90.0-100.0) Total Hemoglobin 12.0 g/dL g/dL (12.0-18.0) O2 Delivery Device Non-invasive vent O2 Liters/Min Not Reportable Vent Rate 10 /MIN /MIN FiO2 50 % % Expiratory Pressure 6 CMH2O CMH2O Inspiratory Pressure 14 CMH2O CMH2O Sodium 126 mmol/L L mmol/L (137-145) Potassium 5.3 mmol/L H mmol/L (3.4-5.0) Chloride 90 mmol/L L mmol/L
[2020-09-20] MEDS: SODIUM CHLORIDE 0.9% IV 500 ML 30 ML IV CONT (15:27)
--- NOTE | 2020-09-20 15:34 | PM.IMHP ---
H&P: HPI History of Present Illness Date/Time: 09/20/20 15:34 this is a 69-year-old male patient who has end-stage renal disease. He is on dialysis Sunday. Into the emergency room for respiratory distress today. The patient did go to his dialysis session today and he also went to dialysis along Sunday. The patient has gained 5-1/2 lb since then. The patient initially was placed on a CPAP machine and now we have him down to 3 L per nasal cannula. The patient was admitted into ICU. Full Service Vending Driver attempted x2 0 [address] to place a temporary dialysis catheter without success. Initially the patient stated that he wanted to be transferred to [facility] to have his fistula replaced. But after talking to his he was agreeable to seeing the surgical team here and having a temporary catheter placed. Surgery has been consulted and has already seen the patient. The patient has 2 AV fistulas to the right forearm. I could not find a palpable thrill and I did not hear a bruit. Surgery was asked to place a tunneled catheter for dialysis. The patient may possibly need to be transferred to [facility] were his vascular surgeon is tomorrow. The patient's white count 11.6 today. Typically low his baseline is typically between 9 and 10. ABGs his pH was 7.355 and his O2 was 199.9. The ABGs were taken on the BiPAP. The patient has since been taken off the BiPAP and placed on room air. His potassium is 5.3 and sodium 126. His Accu-Chek is 224. No pneumothorax. Airspace opacities in the lower lung zones consistent with atelectasis versus pneumonia. Cardiomegaly. The patient is being admitted to inpatient services to ICU on the date of service of 09/20/2020. Chief Complaint: Shortness of breath and failure of dialysis cath Review of Systems Review of Systems: All systems reviewed & are unremarkable except as noted in HPI and below Constitutional: Constitutional: Reports as per HPI and Reports no additional constitutional complaints Eyes: Eyes: Reports as per HPI and Reports no additional eye complaints ENT: Reports system reviewed and no additional complaints, except as documented and Reports Normal hearing present Cardiovascular: Cardiovascular: Reports no additional cardiovascular complaints Respiratory: Respiratory: Reports no additional respiratory complaints and Reports no additional respiratory complaints Gastrointestinal: Gastrointestinal: Reports as per HPI and Reports no additional gastrointestinal complaints Musculoskeletal: Musculoskeletal: Reports no additional musculoskeletal complaints Integumentary/Breasts: Skin/Breast: Reports system reviewed and no additional complaints, except as docu and Reports as per HPI Neurologic: Reports system reviewed and no additional complaints, except as documented, Reports as per HPI and Reports Normal hearing present Psychiatric: Psychiatric: Reports no additional psychiatric complaints and Reports as per HPI Endocrine: Endocrine: Reports no additional endocrine complaints Hematologic/Lymphatic: Hematologic/Lymphatic: Reports no additional hematologic/lymphatic complaints Allergic/Immunologic: Allergic/Immunologic: Reports no additional allergic/immunologic complaints [facility] Past Medical History Medical History (Updated 09/20/20 @ 15:58 by Nadine Pederson NP) AAA (abdominal aortic aneurysm) Stable mid abdominal aortic saccular aneurysm measuring 4.2 cm on imaging dated 01/21/2020 Bacterial infection due to Proteus mirabilis (~10/2018) Secondary to infected dialysis catheter. C. difficile diarrhea 04/2018 CAD (coronary artery disease) Cardiac catheterization in March 2018 doing showed total occlusion of the obtuse and left main with severe disease in the LAD in which she was transferred to [facility] for urgent 2 vessel CABG. 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 Chronic anemia Chronic respiratory failure
[2020-09-20] MEDS: HEPARIN SODIUM 5,000 UNITS/ML VIAL 5000 UNITS IRRIGATION (15:56)
--- NOTE | 2020-09-20 16:14 | SUR.OPER ---
In pre-op area, Dr Mello aware patient not on antibiotics. No antibiotic order received by surgeon.
[2020-09-20] MEDS: LIDO 1%/EPINEPHRINE 1:100,000 50 ML VIAL 10 ML INFILTRATE (16:17)
[2020-09-20] MEDS: HEPARIN SODIUM, PORCINE 10,000 UNITS/10 ML VIAL 5.5 UNITS IV PUSH (16:24)
--- NOTE | 2020-09-20 16:58 | PM.PROC ---
Procedure Note - Detailed Date of procedure: 09/20/20 Pre-op diagnosis: ESRD, AV graft malfunction Post-op diagnosis: same Procedure performed: Left internal jugular Tunneled Dialysis Catheter placement using ultrasound and fluoroscopic guidance Description of procedure: Procedure as well as risks, benefits, and alternatives were discussed with patient. Written consent was obtained and placed in chart prior to procedure. Patient was brought back to surgical suite. Placed supine on operating table. Time-out was done confirm patient procedure. IV sedation was then administered by the Anesthesia Department. His chest and neck area was prepped and draped in sterile fashion using chlorhexidine prep. Patient was placed in Trendelenburg position. SonoSite ultrasound was used to identify the left internal jugular vein. It was visualized as a compressible vessel just lateral to the carotid artery. 1% lidocaine with epinephrine was infiltrated directly over the vessel under ultrasound guidance. An 18 gauge introducer needle was then advanced under ultrasound guidance directly into the left internal jugular vein. Dark nonpulsatile blood was aspirated. A 0.035 in guidewire was then advanced through the needle under fluoroscopic guidance. The guidewire was visualized advancing all the way down into the superior vena cava. 1% lidocaine with epinephrine was then infiltrated on the left anterior chest and along the tract up to the guidewire insertion site. A 5 mm incision was made with a 15 blade scalpel. A small ty incision was then also made at the insertion site at the neck. The tunneler was then advanced from the chest incision up to the neck incision and the catheter tubing was brought up through this tract. The dilator and sheath were then advanced over the guidewire under fluoroscopic visualization. The dilator and guidewire were then removed leaving the sheath in place. The catheter tubing was then advanced through the sheath under fluoroscopic guidance. The sheath was unsnapped and carefully peeled away. The catheter tubing was released underneath the neck incision. Fluoroscopy was used to confirm proper placement of the catheter tubing and no kinks along its path. The catheter was then hep-locked with Hep-Lock solution. The skin of the incisions was then approximated using 4-0 Monocryl subcuticular suture. Exofin glue was then applied at the neck incision and 2x2 gauze and Tegaderm dressing applied at the chest. The patient was then awakened from anesthesia and transferred to recovery. Implants: 28 cm Duraflow2 Dialysis Catheter Anesthesia: MAC and local (1% lidocaine with epinephrine) Surgeon: Lalo Mello DO Estimated blood loss (mL): 10 Complications: No immediate complications Condition: stable Disposition: ICU Findings: This is a 69-year-old man who presented to the emergency department acute respiratory failure. He has a history of end-stage renal disease and is on dialysis. Dialysis was unable to be completed due to a suspected clot in his AV graft on his right arm. His vascular surgeon is for from an outside facility. He was brought [facility] by EMS due to the acute respiratory issues. He does not have access for dialysis and is in need of urgent dialysis. The ICU physician attempted multiple times to perform a bedside temporary dialysis catheter placement, but was unsuccessful. Decision was made to proceed with tunneled dialysis catheter placement. He I initially inspected the right neck region to see if there was any potential access with the right IJ. The vessel was visualized just lateral to the carotid artery but this appeared very small and stenotic or clotted. I attempted ultrasound-guided access in the right internal jugular vein with an 18 gauge needle, but was unable to advance a guidewire into the SVC. The guidewire did advance cephalad up the IJ, but did not advance caudally. I then aborted attempt on the r
--- NOTE | 2020-09-20 17:21 | SUR.PHASEI ---
[id number]- family member updated by phone.
--- NOTE | 2020-09-20 17:29 | PM.CNNEP ---
Assessment and Plan Assessment and plan (1) End stage renal disease: Code(s): N18.6 - End stage renal disease Status: Chronic Assessment and Plan: HD today and continue M/W/F schedule while hospitalized follow electrolytes, volume status, and clearance (2) Thrombosis of dialysis vascular access: Code(s): T82.868A - Thrombosis due to vascular prosthetic devices, implants and grafts, initial encounter Status: Acute Assessment and Plan: will need thrombectomy/declot at some point in time this cannot be done here at [facility] tunneled HD catheter placed for dialysis needs (3) Pulmonary edema: Code(s): J81.1 - Chronic pulmonary edema Status: Acute Assessment and Plan: due to fluid gain since last dialysis treatment and likey secondary to HTN urgency fluid removal with HD to compensate (4) Hyponatremia: Code(s): E87.1 - Hypo-osmolality and hyponatremia Status: Chronic Assessment and Plan: due to renal failure and excessive fluid gain dialysis will compensate to some degree (5) Hypertension: Code(s): I10 - Essential (primary) hypertension Status: Acute Assessment and Plan: better at this time should hopefully improve following dialysis Discussed case with Dr. Klein earlier today. Will continue to follow. History of Present Illness Reason for Consult Consult date: 09/20/20 Reason for consult: end stage renal disease Chief Complaint Chief complaint: ESRD, AV graft malfunction History of Present Illness Narrative: The patient is a 69 year old male with an extensive history as outlined below who presented to [facility] ER with complaints of shortness of breath. The patient was in his usual state of health until yesterday evening when he started noticing some shortness of breath. His shortness of breath continued to worsen overnight but is hope was that this would be rectified by going to his regularly scheduled dialysis treatment today as he suspected that it was all related to his fluid intake over the weekend. He arrived to his outpatient dialysis center earlier this morning for his scheduled dialysis treatment but they were unable to perform dialysis as his right upper extremity access was clotted. he was arranged to be transferred to the vascular Access Center at [facility] for a possible declot of his AV access with a subsequent plan to return back to his outpatient dialysis center for his regular scheduled dialysis treatment. However, his shortness of breath continued to deteriorate while he was at the dialysis center and his blood pressure was extremely elevated as well (greater than 200 systolic). He was given oral clonidine and EMS was called and which led to his transfer to [facility] emergency room. Given his hypoxia, supplemental oxygen was applied and eventually CPAP to maintain his oxygen saturations. Workup and evaluation emergency room demonstrated labs consistent with his known history of end-stage renal disease as well as significant hypertension despite his taking the oral clonidine prior to presentation as well as [id number] respiratory distress. He was immediately placed on BiPAP therapy and says nitropaste as well as IV Lasix was given to the patient with some improvement in his respiratory status. His chest x-ray showed clear evidence of pulmonary edema /pulmonary vascular congestion as well. He gave no other symptoms with regard to fevers chills nausea vomiting abdominal pain lightheadedness or dizziness. He states he had received both of his injections for COVID-19 almost a month ago. the patient issue we want to be transferred to [facility] for further evaluation and more importantly, intervention with regard to his AV access but his respiratory status precluded this transfer. He was subsequent admitted to the ICU for further monitoring and
[2020-09-20] MEDS: FUROSEMIDE 80 MG TABLET PO (18:29)
[2020-09-20 18:33] LABS: Glucose Point of Care 95 mg/dl (65-105)
[2020-09-20] MEDS: HYDROcodone/acetaminophen (*CRX) 5-325 MG TABLET 1 TAB PO (18:35)
[2020-09-20 20:59] LABS: Glucose Point of Care 208 mg/dl (65-105)
[2020-09-20] MEDS: METOPROLOL SUCCINATE EXT REL 50 MG TABCR PO (21:02)
[2020-09-20 23:34] LABS: Hepatitis B Surface Anti Res Negative
[2020-09-21] VITALS (12 sets, daily range): BP systolic 114–179; BP diastolic 54–89; PULSE 53–67; RESP 14–20; TEMP 36.7–37.2; O2SAT 97–100
[2020-09-21 00:26] LABS: Hepatitis B Surface Antigen Negative (Negative)
[2020-09-21] MEDS: ACETAMINOPHEN 325 MG TABLET 650 MG PO (00:53)
[2020-09-21] MEDS: traMADol HCL (*CRX) 50 MG TABLET PO (01:51)
[2020-09-21] MEDS: GABAPENTIN 100 MG CAPSULE 200 MG PO (01:52)
[2020-09-21 05:51] LABS: Basophils Absolute Auto 0.1 K/mm3 (0.0-0.1); Basophils Percent Auto 0.7 % (0.2-1.2); Eosinophils Absolute Auto 0.2 K/mm3 (0-0.3); Eosinophils Percent Auto 2.8 % (0-4.4); Hemoglobin 9.8 g/dL (14.0-18.0); Immature Granulocyte Absolute 0.03 K/mm3 (0.00-0.031); Immature Granulocyte Percent A 0.3 % (0-0.5); Lymphocytes Absolute Auto 1.19 K/mm3 (0.9-3.2); Lymphocytes Percent Auto 13.9 % (18.3-44.2); Mean Corpuscular HGB Conc 33.8 g/dl (32-36); Mean Corpuscular Hemoglobin 32.6 pg (26-34); Mean Corpuscular Volume 96.3 fl (80-100); Mean Platelet Volume 8.8 fl (7.4-10.4); Monocytes Percent Auto 12.1 % (2.6-8.5); Neutrophils Percent Auto 70.2 % (45.5-73.1); Platelet Count Result 350 k/mm3 (150-375); Red Blood Count 3.01 M/mm3 (4.6-6.20); Red Cell Distribution Width 14.7 % (11.5-14.5); White Blood Count 8.6 K/mm3 (4.5-10.0)
[2020-09-21 06:01] LABS: INR 2.2; Prothrombin Time 24.9 Seconds (11.1-14.7)
[2020-09-21 06:26] LABS: Alanine Aminotransferase 11 U/L (4-50); Albumin Level 3.7 g/dL (3.5-5.1); Alkaline Phosphatase 68 U/L (38-126); Anion Gap 7 mmol/L (8-16); Aspartate Amino Transferase 15 U/L (17-59); Bilirubin,Total 0.4 mg/dL (0.2-1.3); Blood Urea Nitrogen 26 mg/dL (9-20); Calcium 8.3 mg/dL (8.4-10.2); Carbon Dioxide 31 mmol/L (22-30); Chloride 96 mmol/L (98-107); Estimated CRCL calculation 12 ml/min; Estimated Glomerular Filt Rate 9; Glucose 165 mg/dL (75-110); Magnesium 1.9 mg/dL (1.6-2.3); Phosphorus 5.3 mg/dL (2.5-4.5); Potassium 4.3 mmol/L (3.4-5.0); Sodium 134 mmol/L (137-145)
--- NOTE | 2020-09-21 07:22 | P.CDI_ITS ---
CDI Query Clarification Request -Pt arrived with c/o shortness of breath -Documentation that AV graft was unable to be accessed so unable to do hemodialysis -Pt placed on Cpap per EMS -Pulmonary edema, chronic pulmonary edema has been documented -Acute respiratory failure secondary to pulmonary edema has been documented Please further clarify acuity of pulmonary edema: * Acute on chronic pulmonary edema * Acute pulmonary edema * Chronic pulmonary edema * Unable to determine
--- NOTE | 2020-09-21 07:25 | PC.NURSE ---
Dr. Kamara to bedside. Discussed discharging patient today. Patient states he has an appointment today at 10am to see his vascular patient.
[2020-09-21 07:37] LABS: Hemoglobin A1C 6.8 % (<5.7)
--- NOTE | 2020-09-21 08:40 | PM.DS ---
DS: Admitting Diagnosis Admitting Diagnosis Admitting Diagnosis: Acute respiratory failure with hypoxia Negative failure and dialysis DS: Discharge Diagnosis Discharge Diagnosis (1) Acute respiratory failure with hypoxia: Code(s): J96.01 - Acute respiratory failure with hypoxia Status: Acute Assessment and Plan: The patient initially was on BiPAP on 3 L per nasal cannula. The patient does have a history of sleep apnea and uses a CPAP machine. Will continue with his CPAP machine at night. Patient most likely just has fluid overload and will require dialysis. (2) Failure of hemodialysis access: Code(s): T82.49XA - Other complication of vascular dialysis catheter, initial encounter Status: Acute Assessment and Plan: A tunnel catheter was attempted at the bedside without success x2 per manager business intelligence. Surgery has been consulted and has been taken to surgery for a tunneled catheter for dialysis access. The patient is wanting to go to [facility] and there was some discussion about the patient being transferred to [facility] tomorrow so that the patient will be able to have a per minute dialysis access. (3) Pulmonary edema: Code(s): J81.1 - Chronic pulmonary edema Status: Acute Assessment and Plan: Patient has dialysis on Sunday and he is requiring dialysis today. Patient's last dialysis was on Sunday. (4) Congestive heart failure: Code(s): I50.9 - Heart failure, unspecified Status: Acute Assessment and Plan: The patient was given a dose of IV Lasix and nitroglycerin. He is on metoprolol. And he is on daily Lasix. Continue with losartan (5) End-stage renal disease on hemodialysis: Code(s): N18.6 - End stage renal disease; Z99.2 - Dependence on renal dialysis Status: Chronic Assessment and Plan: Dialysis Sunday and pl sql programmer has been consulted. (6) Obstructive sleep apnea on CPAP: Code(s): G47.33 - Obstructive sleep apnea (adult) (pediatric); Z99.89 - Dependence on other enabling machines and devices Status: Chronic Assessment and Plan: Continue with CPAP at night. (7) History of diabetes mellitus: Code(s): Z86.39 - Personal history of other endocrine, nutritional and metabolic disease Status: Chronic Assessment and Plan: Accu-Cheks AC and HS. Check A1c if not checked in the last 3 months. He also has some neuropathy to his lower extremities continue with Neurontin. (8) Chronic anemia: Code(s): D64.9 - Anemia, unspecified Status: Chronic Assessment and Plan: Patient is at his baseline. Most likely due to chronic renal disease (9) Diastolic CHF: Qualifiers: Heart failure chronicity: chronic Qualified Code(s): I50.32 - Chronic diastolic (congestive) heart failure Code(s): I50.30 - Unspecified diastolic (congestive) heart failure Status: Chronic Assessment and Plan: Continue with metoprolol and Lasix. Continue with losartan (10) Hyperkalemia: Code(s): E87.5 - Hyperkalemia Status: Acute Assessment and Plan: Recheck after dialysis. His potassium is mildly elevated. (11) Pulmonary embolism: Code(s): I26.99 - Other pulmonary embolism without acute cor pulmonale Status: Inactive Assessment and Plan: The patient is on Coumadin. His INR is1.8. He is not quite therapeutic but almost. Will continue with his Coumadin for now and check daily PT INR. (12) Hyperlipidemia: Code(s): E78.5 - Hyperlipidemia, unspecified Status: Chronic Assessment and Plan: Continue atorvastatin DS: Summary Hospital Course Reason for hospitalization: Acute respiratory failure with hypoxia Chronic renal failure on dialysis Hospital Course: 69 years old male with history of multiple medical problems including chronic renal failure on dialysis was admitted throu
[2020-09-21 08:51] LABS: Glucose Point of Care 93 mg/dl (65-105)
== END 2020-09-21 08:32 | disposition home or self-care (01) | DRG 291 ==
LOC: ANHED 09:29 → ANHICU 09:45
PROVIDERS: Internal Medicine; Internal Medicine Nephrology; Nurse Practitioner; Surgery; Admitting Provider Internal Medicine; Emergency Provider Emergency Medicine; PCP Family Medicine; Visit Provider Internal Medicine
PROC: 0JH63XZ Insertion of Tunneled Vascular Access Device into Chest Subcutaneous Tissue and Fascia, Percutaneous Approach (ICD-10-PCS; CPT 36908; principal; 2020-09-20 15:00)
DX: I13.2 Hypertensive heart and chronic kidney disease with heart failure and with stage 5 chronic kidney disease, or end stage renal disease (principal); N18.6 End stage renal disease; I26.99 Other pulmonary embolism without acute cor pulmonale; J96.21 Acute and chronic respiratory failure with hypoxia; T82.868A Thrombosis due to vascular prosthetic devices, implants and grafts, initial encounter; J81.1 Chronic pulmonary edema; I50.32 Chronic diastolic (congestive) heart failure; E87.1 Hypo-osmolality and hyponatremia; D63.1 Anemia in chronic kidney disease; Z99.2 Dependence on renal dialysis; E78.5 Hyperlipidemia, unspecified; I71.4 Abdominal aortic aneurysm, without rupture; G47.33 Obstructive sleep apnea (adult) (pediatric); I48.0 Paroxysmal atrial fibrillation; I25.5 Ischemic cardiomyopathy; I25.10 Atherosclerotic heart disease of native coronary artery without angina pectoris; F41.8 Other specified anxiety disorders; Z79.01 Long term (current) use of anticoagulants; Z86.39 Personal history of other endocrine, nutritional and metabolic disease; Z86.73 Personal history of transient ischemic attack (TIA), and cerebral infarction without residual deficits; Z86.718 Personal history of other venous thrombosis and embolism; Z95.1 Presence of aortocoronary bypass graft; Z99.89 Dependence on other enabling machines and devices
CPT/HCPCS: 36415; 36600; 71045; 77001; 80053; 82805; 82948; 83036; 83735; 83880; 84100; 84484; 85025; 85610; 85730; 86706; 87340; 93005; 94002; 94003; 96374; 99291; C1752; A9270; C1750; C1751; G0378; J1170; J1644; J1815; J1940; J2704; J7030; J7040

== ENCOUNTER 2020-10-29 07:20 | Inpatient (IN) | payer MEDICARE, SELFPAY ==
[2020-10-29] VITALS (21 sets, daily range): BP systolic 126–227; BP diastolic 54–93; PULSE 20–97; RESP 15–34; TEMP 36–37; O2SAT 95–100; BMI 30.7
--- NOTE | ~2020-10-29 | CT_ITS ---
EXAMINATION: CTA chest PE protocol DATE: 10/31/2020 23:59 INDICATION: Shortness of breath TECHNIQUE: Computed tomography angiography (CTA) of the chest was performed with 100 mL Omnipaque-350 intravenous contrast timed to evaluate the pulmonary arteries. Coronal maximum intensity projection 3D-reconstructions were created by the technologist. The dose-length product (DLP) was 1034.58 mGy-cm . Automated exposure control and iterative reconstruction technique were employed. COMPARISON: 03/25/2020 FINDINGS: The pulmonary arteries are well-opacified. There are chronic emboli in segmental branches o f the right middle and lower lobes which demonstrate interval decrease in size. A small, nonocclusive embolus located centrally in the right lower lobe is not definitely identified on the prior examinat ion. There are moderate-sized pleural effusions. Cardiomegaly is noted. There are diffuse interstitia l and airspace opacities throughout the lungs. Dependent atelectasis is present in the lung bases. Th ere is no pneumothorax. Cardiomegaly is noted. There is mild mediastinal lymphadenopathy which is lik ivanna reactive. There is moderate thoracic spondylosis. And endoluminal stent is noted in the right axi lla. IMPRESSION: 1. Chronic pulmonary emboli in the right lower lobe with a small nonocclusive embolus of the right lo wer lobe. Finding could reflect a resolving embolus as well but is new since the comparison examinati on. These findings were discussed with Alexander Mora RN at 0843 hours on 11/01/2020. 2. Diffuse interstitial and airspace opacities, consistent with pulmonary edema or less likely pneumo stoney. 3. Cardiomegaly. 4. Moderate-sized pleural effusions. Reviewed, dictated and finalized at location A. IMPRESSION: 1. Chronic pulmonary emboli in the right lower lobe with a small nonocclusive e mbolus of the right lower lobe. Finding could reflect a resolving embolus as we ll but is new since the comparison examination. These findings were discussed w curt Mora RN at 0843 hours on 11/01/2020. 2. Diffuse interstitial and airspace opacities, consistent with pulmonary edema or less likely pneumonia. 3. Cardiomegaly. 4. Moderate-sized pleural effusions.
--- NOTE | ~2020-10-29 | US_ITS ---
EXAMINATION: US soft tissue UE RT INDICATION: Pain and possible hematoma at the site of patient's right upper extremity fistula TECHNIQUE: High-resolution ultrasound is performed in the area of clinical concern. COMPARISON: None available FINDINGS: There is a 2.8 x 2.3 x 0.7 cm hypoechoic area adjacent to the fistula without internal vasc ular flow no additional acute abnormality is identified. IMPRESSION: 1. Sonographic findings suggestive of a small hematoma adjacent to the patient's right upper extremit y fistula. Reviewed, dictated and finalized at location A. IMPRESSION: 1. Sonographic findings suggestive of a small hematoma adjacent to the patient' s right upper extremity fistula.
--- NOTE | ~2020-10-29 | XR_ITS ---
EXAMINATION: XR chest 1V portable DATE: 10/29/2020 07:51 INDICATION: Coronary artery disease, hypertension and congestive heart failure presenting with hypoxi a and shortness of breath. TECHNIQUE: frontal view of the chest was obtained. COMPARISON: Chest radiograph dated 09/20/2020 FINDINGS: Diffuse indistinct increased interstitial pattern with airspace opacities in the bilateral mid and lo wer lung zones consistent with pulmonary edema. Additional left basilar opacities with blunting at th e costophrenic angle consistent with small pleural effusion. No pneumothorax. Radio megaly. Median st ernotomy wires and mediastinal surgical clips are seen, likely from prior coronary artery bypass sallie ting. IMPRESSION: 1. Diffuse bilateral lung disease most likely congestive heart failure related mild to moderate pulmo nary edema with differential including pneumonia. 2. Small left pleural effusion. 3. Cardiomegaly. Reviewed, dictated and finalized at location A. IMPRESSION: 1. Diffuse bilateral lung disease most likely congestive heart failure related mild to moderate pulmonary edema with differential including pneumonia. 2. Small left pleural effusion. 3. Cardiomegaly.
--- NOTE | 2020-10-29 07:27 | ECG_ITS ---
Measurements Intervals [place] Rate: 95 P: -7 NH: 230 QRS: 64 QRSD: 102 T: 261 QT: 357 QTc: 450 Interpretive Statements SINUS RHYTHM WITH FIRST DEGREE AV BLOCK DELAYED PRECORDIAL R/S TRANSITION BORDERLINE ST-T WAVE ABNORMALITY- INF/LAT LEADS BASELINE ARTIFACT- I, II, III, AVR, AVL, AVF, V1-V6 ABNORMAL ECG Electronically Signed On 10-29-2020 7:41:59 CDT by Cristhian Crane D.O.
--- NOTE | 2020-10-29 07:31 | ED.GENADULT ---
HPI - General Adult General Chief complaint: Shortness of Breath/Dyspnea Stated complaint: resp distress Time Seen by Provider: 10/29/20 07:29 Source: patient, EMS and RN notes reviewed Mode of arrival: EMS Limitations: physical limitation History of Present Illness HPI narrative: Patient is 70 years old white male called the ambulance from his drive way at home while sitting in the car because he could not breathe. Patient reports shortness of breath started last night, scheduled for dialysis today, sat in the car and could not drive called 911. He sat with in the 80s, 50 L nonrebreather was placed without significant improvement, then patient placed on CPAP and brought to the emergency room. Patient is full code, fully vaccinated for COVID-19, did not take his regular medication this morning. Related Data Home Medications Medication Instructions Recorded Confirmed gabapentin [Neurontin] 200 mg PO TID 01/21/20 09/20/20 amiodarone 200 mg PO EVERY OTHER DAY 04/24/20 09/20/20 atorvastatin 40 mg PO HS 04/24/20 09/20/20 cyanocobalamin (vitamin B-12) 1,000 mcg PO DAILY 04/24/20 09/20/20 fluticasone propionate 1 spray INTRANASAL DAILY 04/24/20 09/20/20 levalbuterol tartrate 2 puff INHALATION Q6H PRN 04/24/20 09/20/20 losartan 100 mg PO QPM 04/24/20 09/20/20 metoprolol succinate 50 mg PO QPM 04/24/20 09/20/20 tramadol 50 mg PO Q6H PRN 04/24/20 09/20/20 cholecalciferol (vitamin D3) 125 mcg PO DAILY 09/20/20 09/20/20 coenzyme Q10 200 mg PO DAILY 09/20/20 09/20/20 metoprolol succinate 25 mg PO QAM 09/20/20 09/20/20 pantoprazole 40 mg PO QAM 09/20/20 09/20/20 sucroferric oxyhydroxide 500 mg PO TIDWM 09/20/20 09/20/20 warfarin 4 mg PO DAILY 09/20/20 09/20/20 Allergies Allergy/AdvReac Type Severity Reaction Status Date / Time atorvastatin Allergy Unknown Rash Verified 10/29/20 07:28 Penicillins Allergy Unknown Verified 10/29/20 07:28 Review of Systems Review of Systems: ROS unobtainable: Yes unobtainable due to medical condition [facility] Past Medical History Medical History AAA (abdominal aortic aneurysm) Stable mid abdominal aortic saccular aneurysm measuring 4.2 cm on imaging dated 01/21/2020 Bacterial infection due to Proteus mirabilis (~10/2018) Secondary to infected dialysis catheter. C. difficile diarrhea 04/2018 CAD (coronary artery disease) Cardiac catheterization in March 2018 doing showed total occlusion of the obtuse and left main with severe disease in the LAD in which she was transferred to [facility] for urgent 2 vessel CABG. 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 Chronic anemia Chronic respiratory failure with hypoxia, on home oxygen therapy On 2 L nasal cannula. Congestive heart failure Echo in Dec 2019 showed EF 55-60%, Grade 3 DD and HK apical septum and inferoapical beyer. Moderate Pulm HTN (48) Coronary artery disease Cardiac catheterization in March 2018 doing showed total occlusion of the obtuse and left main with severe disease in the LAD in which she was transferred to [facility] for urgent 2 vessel CABG. Current use of long wall shear operator anticoagulation On warfarin for stroke prophylaxis given atrial fibrillation. CVA (cerebral vascular accident) Post CABG with residual right-sided weakness Depression with anxiety Depression with anxiety DVT (deep venous thrombosis) End stage renal disease HD M-W-; Dialysis since 03/2018 Erythropoietin deficiency anemia Essential hypertension Hemodialysis access site with arteriovenous graft Right forearm placed in early 2018; right upper arm fistula 2018 History of diabetes mellitus No longer on medication. History of Pseudomonas pneumonia Hyperlipidemia Hypertension Ischemic cardiomyopathy Ejection fraction as low as 35% with improvement on recent echocardiogram as above. Lower extremity deep venous thrombosis MRSA infection Obstructive sleep apnea on CPAP Parox
[2020-10-29 07:40] LABS: Alveolar/Arterial O2 Gradient 473.6 mmHg; Device CPAP; Fractional Inspired Oxygen 100 %; HCO3 ABG 23.5 mEq/l (22.0-26.0); Modified Allen's Test Pass; Oxygen Content ABG 17.3 %vol (16.0-22.0); Oxygen Saturation ABG 99.3 % (95.0-100.0); Oxyhemoglobin 97.6 % THb (90.0-100.0); PCO2 ABG 43.2 mmHg (35.0-45.0); PO2 ABG 196.2 mmHg (80.0-100.0); PO2 FiO2 Ratio Arterial Blood 1.96 %; Site Drawn LEFT RADIAL; Total Hemoglobin 12.3 g/dL (12.0-18.0); pH ABG 7.354 (7.350-7.450)
[2020-10-29] MEDS: FUROSEMIDE INJ 40 MG/4 ML VIAL 60 MG IV PUSH (07:40)
[2020-10-29] MEDS: NITROGLYCERIN OINTMENT 1 INCH DOSE TRANSDERM (07:40)
[2020-10-29 07:41] LABS: CPAP 10 cmH2O
[2020-10-29 07:42] LABS: Basophils Absolute Auto 0.1 K/mm3 (0.0-0.1); Basophils Percent Auto 0.9 % (0.2-1.2); Eosinophils Absolute Auto 0.5 K/mm3 (0-0.3); Eosinophils Percent Auto 3.2 % (0-4.4); Hematocrit 34.5 % (42.0-52.0); Hemoglobin 11.3 g/dL (14.0-18.0); Immature Granulocyte Absolute 0.09 K/mm3 (0.00-0.031); Immature Granulocyte Percent A 0.6 % (0-0.5); Lymphocytes Absolute Auto 1.63 K/mm3 (0.9-3.2); Lymphocytes Percent Auto 11.7 % (18.3-44.2); Mean Corpuscular HGB Conc 32.8 g/dl (32-36); Mean Corpuscular Hemoglobin 32.8 pg (26-34); Mean Platelet Volume 8.8 fl (7.4-10.4); Monocytes Absolute Auto 1.5 K/mm3 (0.1-0.6); Monocytes Percent Auto 10.9 % (2.6-8.5); Neutrophils Absolute Auto 10.1 K/mm3 (1.3-6.7); Neutrophils Percent Auto 72.7 % (45.5-73.1); Platelet Count Result 420 k/mm3 (150-375); Red Blood Count 3.45 M/mm3 (4.6-6.20); Red Cell Distribution Width 14.8 % (11.5-14.5); White Blood Count 13.9 K/mm3 (4.5-10.0)
[2020-10-29] MEDS: MORPHINE SULFATE (*CRX) 2 MG/ML INJ IV PUSH (07:43)
[2020-10-29] MEDS: ONDANSETRON INJ 4 MG/2 ML VIAL IV PUSH (07:43)
[2020-10-29 07:53] LABS: Alanine Aminotransferase 12 U/L (4-50); Albumin Level 4.5 g/dL (3.5-5.1); Alkaline Phosphatase 83 U/L (38-126); Anion Gap 15 mmol/L (8-16); Aspartate Amino Transferase 26 U/L (17-59); Bilirubin,Total 0.6 mg/dL (0.2-1.3); Blood Urea Nitrogen 37 mg/dL (9-20); Calcium 8.9 mg/dL (8.4-10.2); Carbon Dioxide 25 mmol/L (22-30); Chloride 93 mmol/L (98-107); Estimated CRCL calculation 10 ml/min; Estimated Glomerular Filt Rate 6; Glucose 205 mg/dL (75-110); Potassium 5.4 mmol/L (3.4-5.0); Sodium 133 mmol/L (137-145)
--- NOTE | 2020-10-29 08:01 | PC.NURSE ---
Pt states he does still make urine, but will need time to try , declined straight cath at this time. Given urinal and call light.
[2020-10-29 08:03] LABS: INR 1.1; Partial Thromboplastin Time 30.2 SECONDS (22.3-36.8); Prothrombin Time 13.6 Seconds (11.1-14.7)
[2020-10-29 08:09] LABS: Troponin I 0.073 ng/mL (0.000-0.034)
--- NOTE | 2020-10-29 10:29 | ADMGEN ---
This patient, David Saleh, was admitted to IMU Room 207-01. Patient/family oriented to hospital policies and general routines including ID bracelet, bed and alarms, visiting hours, pain management, procedures, bathroom and other care routines, personal items, smoking policy, room service/diet, and visiting hours. Information on how to activate the Rapid Response Team has been discussed. Patient/Family are encouraged to report perceived risks to care and to ask questions if they do not understand what they are told or what they should do.
[2020-10-29 11:46] LABS: Troponin I 0.073 ng/mL (0.000-0.034)
--- NOTE | 2020-10-29 12:58 | PM.IMHP ---
H&P: HPI History of Present Illness Date/Time: 10/29/20 12:58This is a 70-year-old who has end-stage renal disease and typically goes on Sunday. The patient has been short of breath any chronically wears oxygen at 4.5 L per nasal cannula at home. He also has sleep apnea and states that he has been wearing his CPAP machine. The patient stated that he has been having some wheezing any called his primary care doctor who ordered him steroids but they do not appear to be helping. The patient's last dialysis was on Sunday. The patient did not make it to dialysis today. He got in his car and was short of breath so he called 911 from his car. His oxygen level was found to be in the 80s. Patient was initially placed on a BiPAP. The patient's white count is 13.9 but he had been on steroids. The patient is chronically anticoagulated due to his AFib. His INR today was 1.1. chest x-ray was read as 1. Diffuse bilateral lung disease most likely congestive heart failure related mild to moderate pulmonary edema with differential including pneumonia. 2. Small left pleural effusion. 3. Cardiomegaly. patient was given Lasix, nitro, morphine, Zofran and IV fluids. Patient was taken dialysis however his AV fistula developed a hematoma. The site infiltrated he has edema to his right upper arm and around his right elbow. Dialysis was not able to be completed at this time. Patient is no longer on a BiPAP and he is on 5 L at this time. The patient is admitted to inpatient services on the date of service of 10/29/2020 Chief Complaint: Shortness of breath Review of Systems Review of Systems: All systems reviewed & are unremarkable except as noted in HPI and below Constitutional: Constitutional: Reports as per HPI and Reports no additional constitutional complaints Eyes: Eyes: Reports as per HPI and Reports no additional eye complaints ENT: Reports system reviewed and no additional complaints, except as documented and Reports Normal hearing present Cardiovascular: Cardiovascular: Reports no additional cardiovascular complaints Respiratory: Respiratory: Reports no additional respiratory complaints and Reports no additional respiratory complaints Gastrointestinal: Gastrointestinal: Reports as per HPI and Reports no additional gastrointestinal complaints Musculoskeletal: Musculoskeletal: Reports no additional musculoskeletal complaints Integumentary/Breasts: Skin/Breast: Reports system reviewed and no additional complaints, except as docu and Reports as per HPI Neurologic: Reports system reviewed and no additional complaints, except as documented, Reports as per HPI and Reports Normal hearing present Psychiatric: Psychiatric: Reports no additional psychiatric complaints and Reports as per HPI Endocrine: Endocrine: Reports no additional endocrine complaints Hematologic/Lymphatic: Hematologic/Lymphatic: Reports no additional hematologic/lymphatic complaints Allergic/Immunologic: Allergic/Immunologic: Reports no additional allergic/immunologic complaints [facility] Past Medical History Medical History AAA (abdominal aortic aneurysm) Stable mid abdominal aortic saccular aneurysm measuring 4.2 cm on imaging dated 01/21/2020 Bacterial infection due to Proteus mirabilis (~10/2018) Secondary to infected dialysis catheter. C. difficile diarrhea 04/2018 CAD (coronary artery disease) Cardiac catheterization in March 2018 doing showed total occlusion of the obtuse and left main with severe disease in the LAD in which she was transferred to [facility] for urgent 2 vessel CABG. 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 Chronic anemia Chronic respiratory failure with hypoxia, on home oxygen therapy On 2 L nasal cannula. Congestive heart failure Echo in Dec 2019 showed EF 55-60%, Grade 3 DD and HK apical septum and inferoapical beyer. Moderate Pulm HTN (4
[2020-10-29] MEDS: GABAPENTIN 100 MG CAPSULE 200 MG PO ×2 (13:00→18:27)
[2020-10-29 13:33] LABS: INR 1.1
[2020-10-29 14:55] LABS: Basophils Absolute Auto 0.1 K/mm3 (0.0-0.1); Basophils Percent Auto 0.7 % (0.2-1.2); Eosinophils Absolute Auto 0.3 K/mm3 (0-0.3); Eosinophils Percent Auto 2.4 % (0-4.4); Hematocrit 29.6 % (42.0-52.0); Immature Granulocyte Absolute 0.07 K/mm3 (0.00-0.031); Immature Granulocyte Percent A 0.6 % (0-0.5); Lymphocytes Absolute Auto 1.52 K/mm3 (0.9-3.2); Lymphocytes Percent Auto 13.8 % (18.3-44.2); Mean Corpuscular HGB Conc 33.8 g/dl (32-36); Mean Corpuscular Hemoglobin 33.7 pg (26-34); Mean Corpuscular Volume 99.7 fl (80-100); Mean Platelet Volume 8.8 fl (7.4-10.4); Monocytes Absolute Auto 1.4 K/mm3 (0.1-0.6); Monocytes Percent Auto 12.3 % (2.6-8.5); Neutrophils Absolute Auto 7.7 K/mm3 (1.3-6.7); Neutrophils Percent Auto 70.2 % (45.5-73.1); Platelet Count Result 365 k/mm3 (150-375); Red Blood Count 2.97 M/mm3 (4.6-6.20); Red Cell Distribution Width 14.7 % (11.5-14.5)
[2020-10-29 15:03] LABS: INR 1.1; Prothrombin Time 13.8 Seconds (11.1-14.7)
[2020-10-29 15:04] LABS: Partial Thromboplastin Time 31.1 SECONDS (22.3-36.8)
--- NOTE | 2020-10-29 15:24 | PM.CNNEP ---
Assessment and Plan Assessment and plan (1) End stage renal disease: Code(s): N18.6 - End stage renal disease Status: Chronic Assessment and Plan: had planned HD today but unable to do so due to infiltration of AV access will try high dose diuretics today in an effort get rid of some fluid re-schedule dialysis tomorrow AM (2) Fluid overload: Qualifiers: Hypervolemia type: unspecified Qualified Code(s): E87.70 - Fluid overload, unspecified Code(s): E87.70 - Fluid overload, unspecified Status: Acute Assessment and Plan: as noted by admission CXR suspect a component of flash pulmonary edema due to HTN urgency given presentation reassess once dialysis completed (3) Hypertension: Code(s): I10 - Essential (primary) hypertension Status: Acute Assessment and Plan: better at this time quite elevated on admission follow trend of hemodynamics (4) Failure of hemodialysis access: Code(s): T82.49XA - Other complication of vascular dialysis catheter, initial encounter Status: Acute Assessment and Plan: inflitrated with attempted dialysis today apply ice and will attempt use tomorrow if HD nurse unable to use/cannulate, may need to consider temporary HD catheter placement Will continue to follow. History of Present Illness Reason for Consult Consult date: 10/29/20 Reason for consult: end stage renal disease Chief Complaint Chief complaint: Acute Hypoxic Resp Failure, Pulmonary Edema, History of Present Illness Narrative: The patient is 70-year-old male with an extensive past medicaly history as outlined below who presented to [facility] ER for shortness of breath. The patient was apparently about to drive himself to his dialysis treatment today when he suddenly developed worsening shortness of breath while he was in his car. The shortness of breath was quite severe and almost a bili tape and hence he called 911 from his car. On arrival by EMS, he was noted be to have oxygen saturations in the 80 percentile range so supplemental oxygen was applied and he was subsequently transferred to the emergency room for further evaluation. Upon arrival to the emergency room he still was in mild respiratory distress and quite hypertensive as well. He was switched from nasal cannula to BiPAP in effort to ease his respiratory status. Routine blood tests were done which demonstrated labs consistent with his known history of end-stage renal disease, a subtherapeutic INR ( he is supposed to be on anticoagulation), and a chest x-ray that demonstrated bilateral lung disease most likely consistent with congestive heart failure with mild to moderate pulmonary edema. He was given a combination of IV Lasix, nitroglycerin, morphine, and Zofran with some clinical improvement. He was subsequently admitted to the hospital for optimization of his respiratory status as well as renal replacement therapy/dialysis. Unfortunately, in attempt to get him his dialysis today, his AV fistula was infiltrated by the dialysis nurse and is unable to receive dialysis today. However, his respiratory status seemed to improve with control was the blood pressure and the use of BiPAP/supplemental oxygen. He is tentatively rescheduled for dialysis tomorrow. Renal consultation was requested due to his end-stage renal disease. The patient normally dialyzes on a Sunday schedule under the care of Dr. Harshil Cardenas at for [facility]. His last dialysis treatment was on Sunday (11/26/20) with his next dialysis outpatient treatment scheduled for today. From a dialysis perspective, he has been doing reasonably well with relative stability in his CKD parameters but he has been known to have significant/frequent excessive fluid gains in between his dialysis treatments at baseline. As mentioned above, due to infiltration of his AV access, we will have
[2020-10-29 15:26] LABS: Troponin I 0.071 ng/mL (0.000-0.034)
[2020-10-29] MEDS: LEVALBUTEROL HFA (*SP) 15 GM INHALER 2 PUFF INHALATION (15:48)
[2020-10-29] MEDS: FLUTICASONE PROPIONATE 0.05% NA SPR 16 GM BTL (*BKC) 1 SPRAY NASAL (15:48)
[2020-10-29] MEDS: CHOLECALCIFEROL 1,000 UNITS TABLET 5000 UNITS PO (15:55)
[2020-10-29] MEDS: PANTOPRAZOLE 40 MG TABLET PO (15:55)
[2020-10-29] MEDS: HEPARIN SODIUM 5,000 UNITS/ML VIAL 7500 UNITS IV PUSH (15:56)
[2020-10-29] MEDS: CYANOCOBALAMIN 1,000 MCG TABLET 1000 MCG PO (15:56)
[2020-10-29] MEDS: METOPROLOL SUCCINATE EXT REL 25 MG TABCR PO (15:56)
[2020-10-29] MEDS: HEPARIN SOD/D5W 100 UNITS/ML 25,000 UNITS/250 ML BAG 15 UNITS IV CONT (15:57)
[2020-10-29] MEDS: METOPROLOL SUCCINATE EXT REL 50 MG TABCR PO (18:26)
[2020-10-29] MEDS: LOSARTAN POTASSIUM 100 MG TABLET PO (18:27)
[2020-10-29] MEDS: WARFARIN (*PBKC) 4 MG TABLET PO (18:27)
[2020-10-29 18:51] LABS: Anion Gap 14 mmol/L (8-16); Blood Urea Nitrogen 45 mg/dL (9-20); Calcium 8.7 mg/dL (8.4-10.2); Carbon Dioxide 26 mmol/L (22-30); Chloride 91 mmol/L (98-107); Estimated CRCL calculation 10 ml/min; Estimated Glomerular Filt Rate 6; Glucose 175 mg/dL (75-110); Potassium 5.3 mmol/L (3.4-5.0); Sodium 131 mmol/L (137-145)
[2020-10-29] MEDS: ATORVASTATIN 40 MG TABLET PO (20:39)
[2020-10-29 22:32] LABS: Partial Thromboplastin Time 154.4 SECONDS (22.3-36.8)
[2020-10-30] VITALS (39 sets, daily range): BP systolic 138–170; BP diastolic 44–78; PULSE 55–90; RESP 14–21; TEMP 36–37; O2SAT 94–100
[2020-10-30 05:01] LABS: Alanine Aminotransferase 9 U/L (4-50); Albumin Level 3.6 g/dL (3.5-5.1); Alkaline Phosphatase 66 U/L (38-126); Anion Gap 12 mmol/L (8-16); Aspartate Amino Transferase 13 U/L (17-59); Bilirubin,Total 0.5 mg/dL (0.2-1.3); Blood Urea Nitrogen 50 mg/dL (9-20); Calcium 8.2 mg/dL (8.4-10.2); Carbon Dioxide 24 mmol/L (22-30); Chloride 94 mmol/L (98-107); Estimated CRCL calculation 9 ml/min; Estimated Glomerular Filt Rate 6; Glucose 135 mg/dL (75-110); Magnesium 1.9 mg/dL (1.6-2.3); Potassium 5.6 mmol/L (3.4-5.0); Sodium 130 mmol/L (137-145)
[2020-10-30 05:09] LABS: Basophils Absolute Auto 0.1 K/mm3 (0.0-0.1); Basophils Percent Auto 0.8 % (0.2-1.2); Eosinophils Absolute Auto 0.5 K/mm3 (0-0.3); Eosinophils Percent Auto 4.5 % (0-4.4); Hematocrit 26.9 % (42.0-52.0); Immature Granulocyte Absolute 0.05 K/mm3 (0.00-0.031); Immature Granulocyte Percent A 0.5 % (0-0.5); Lymphocytes Absolute Auto 1.88 K/mm3 (0.9-3.2); Lymphocytes Percent Auto 18.5 % (18.3-44.2); Mean Corpuscular HGB Conc 33.5 g/dl (32-36); Mean Corpuscular Hemoglobin 33.2 pg (26-34); Mean Corpuscular Volume 99.3 fl (80-100); Mean Platelet Volume 8.9 fl (7.4-10.4); Monocytes Absolute Auto 1.4 K/mm3 (0.1-0.6); Monocytes Percent Auto 13.3 % (2.6-8.5); Neutrophils Absolute Auto 6.3 K/mm3 (1.3-6.7); Neutrophils Percent Auto 62.4 % (45.5-73.1); Platelet Count Result 323 k/mm3 (150-375); Red Blood Count 2.71 M/mm3 (4.6-6.20); Red Cell Distribution Width 14.5 % (11.5-14.5); White Blood Count 10.2 K/mm3 (4.5-10.0)
[2020-10-30 05:20] LABS: INR 1.1; Prothrombin Time 14.3 Seconds (11.1-14.7)
[2020-10-30 05:40] LABS: Partial Thromboplastin Time 49.4 SECONDS (22.3-36.8)
--- NOTE | 2020-10-30 06:37 | PC.NURSE ---
PTT is 49.4. Per protocol, patient should receive Heparin 7500 unit bolus and increase the drip by 400 units/hr to 1600 units/hr. I called Dr. Fernando to authorize these orders since the patient is due for dialysis this AM. Dr. Bragg advised to follow the protocol as ordered and he will work around the Heparin.
[2020-10-30] MEDS: HEPARIN SODIUM 5,000 UNITS/ML VIAL 7500 UNITS IV PUSH (06:47)
--- NOTE | 2020-10-30 07:30 | PC.NURSE ---
Patient's heparin gtt is at 16ml/hr per protocol. Previous RN did titrate medication to correct dose but did not complete the charting in the MAR.
--- NOTE | 2020-10-30 07:31 | PC.NURSE ---
[facility] exchange notified at 0720. window sash installer will call back.
[2020-10-30] MEDS: GABAPENTIN 100 MG CAPSULE 200 MG PO ×3 (08:29→18:48)
[2020-10-30] MEDS: traMADol HCL (*CRX) 50 MG TABLET PO ×2 (08:29→21:37)
[2020-10-30] MEDS: CHOLECALCIFEROL 1,000 UNITS TABLET 5000 UNITS PO (08:29)
[2020-10-30] MEDS: METOPROLOL SUCCINATE EXT REL 25 MG TABCR PO (08:30)
[2020-10-30] MEDS: CYANOCOBALAMIN 1,000 MCG TABLET 1000 MCG PO (08:30)
[2020-10-30] MEDS: PANTOPRAZOLE 40 MG TABLET PO (08:31)
[2020-10-30] MEDS: AMIODARONE HCL 200 MG TABLET PO (08:31)
[2020-10-30] MEDS: FUROSEMIDE 20 MG TABLET PO (08:31)
[2020-10-30] MEDS: FLUTICASONE PROPIONATE 0.05% NA SPR 16 GM BTL (*BKC) 1 SPRAY NASAL (08:32)
[2020-10-30] MEDS: HEPARIN SOD/D5W 100 UNITS/ML 25,000 UNITS/250 ML BAG 16 UNITS IV CONT (10:00)
--- NOTE | 2020-10-30 10:20 | PM.IMPN ---
Progress Note: A&P Assessment and Plan (1) Congestive heart failure: Code(s): I50.9 - Heart failure, unspecified Status: Acute Assessment and Plan: patient less likely has fluid overload. Patient needs dialysis. He typically has dialysis Sunday. The patient was initially on BiPAP but is now on 5 L per nasal cannula. Patient was given Lasix in the emergency room. Patient was unable to complete dialysis today because the site infiltrated. The patient was given a dose of Lasix when he 1st came to the emergency room. He is given another dose of Bumex by the manager user experience Will repeat her his echocardiogram echo done on March/2020 shows EF 45-50% mildly increased left ventricular wall thickness, grade 3 diastolic dysfunction, apical inferior wall akinetic, apical septum apical lateral wall and apical anterior wall are hypokinetic, by apical cap is dyskinetic (2) Respiratory failure: Code(s): J96.90 - Respiratory failure, unspecified, unspecified whether with hypoxia or hypercapnia Status: Acute Assessment and Plan: Patient initially was on a BiPAP machine he is back to 5 L now. He typically wears 4.5 L at home. Patient was given Lasix and was placed on the BiPAP initially which appeared to help. will continue BiPAP p.r.n. History of pulmonary embolism. Will do a CTA PE protocol to further evaluate (3) End-stage renal disease on hemodialysis: Code(s): N18.6 - End stage renal disease; Z99.2 - Dependence on renal dialysis Status: Chronic Assessment and Plan: Patient typically have dialysis on Sunday. It was unable to have dialysis today because the site infiltrate. Try again tomorrow for dialysis. Patient's potassium is 5.4 will need dialysis today and monitor (4) Essential hypertension: Code(s): I10 - Essential (primary) hypertension Status: Chronic Assessment and Plan: The patient is on metoprolol, amiodarone, and losartan (5) Paroxysmal atrial fibrillation: Code(s): I48.0 - Paroxysmal atrial fibrillation Status: Chronic Assessment and Plan: the patient is on Coumadin but he has compliance issues at times. The patient is subtherapeutic with INR 1.1. I started the patient on heparin drip protocol as he has a history of pulmonary embolism and is in AFib. We will continue with his Coumadin and check his INR daily. Reuse and heparin drip to bridge him back to his Coumadin. Continue on heparin drip bridge with INR monitoring Coumadin has been restarted (6) Hyperlipidemia: Code(s): E78.5 - Hyperlipidemia, unspecified Status: Chronic Assessment and Plan: Continue with atorvastatin (7) Pulmonary embolism: Qualifiers: Acute cor pulmonale presence: without acute cor pulmonale Chronicity: acute Pulmonary embolism type: unspecified Qualified Code(s): I26.99 - Other pulmonary embolism without acute cor pulmonale Code(s): I26.99 - Other pulmonary embolism without acute cor pulmonale Status: Acute Assessment and Plan: the patient is subtherapeutic on Coumadin. Will bridge him with heparin drip at this time. will evaluate with a CTA PE protocol (8) Acute respiratory failure with hypoxia: Code(s): J96.01 - Acute respiratory failure with hypoxia Status: Acute Assessment and Plan: Patient is on 5 L at this time. Who is typically on 4 and half. (9) Obstructive sleep apnea on CPAP: Code(s): G47.33 - Obstructive sleep apnea (adult) (pediatric); Z99.89 - Dependence on other enabling machines and devices Status: Chronic Assessment and Plan: Continue with home CPAP. (10) Chronic anemia: Code(s): D64.9 - Anemia, unspecified Status: Chronic Assessment and Plan: Continue to monitor. He is above his baseline. (11) Subtherapeutic international normalized ratio (INR): Code(s): R79.1 - Abn
--- NOTE | 2020-10-30 11:58 | PM.PNNEP ---
Progress Note: A&P Assessment and Plan (1) End stage renal disease: Code(s): N18.6 - End stage renal disease Status: Chronic Assessment and Plan: HD today -- HD nurse eventually able to cannulate AVF optimization of electrolytes, volume status, and clearance plan HD on Sunday to resume // schedule (2) Fluid overload: Qualifiers: Hypervolemia type: unspecified Qualified Code(s): E87.70 - Fluid overload, unspecified Code(s): E87.70 - Fluid overload, unspecified Status: Acute Assessment and Plan: as noted by admission CXR suspect a component of flash pulmonary edema due to HTN urgency given presentation reassess once dialysis completed today (3) Hypertension: Code(s): I10 - Essential (primary) hypertension Status: Acute Assessment and Plan: better at this time quite elevated on admission follow trend of hemodynamics (4) Pulmonary embolism: Qualifiers: Acute cor pulmonale presence: without acute cor pulmonale Chronicity: acute Pulmonary embolism type: unspecified Qualified Code(s): I26.99 - Other pulmonary embolism without acute cor pulmonale Code(s): I26.99 - Other pulmonary embolism without acute cor pulmonale Status: Acute Assessment and Plan: known history INR was subtherapeutic on admission on heparin gtt currently CT scan of chest to reassess given admission symptoms (5) Failure of hemodialysis access: Code(s): T82.49XA - Other complication of vascular dialysis catheter, initial encounter Status: Acute Assessment and Plan: resolved inflitrated with attempted dialysis yesterday AVF able to be used today Will continue to follow. Subjective Date/time seen: 10/30/20 11:58 Tolerating dialysis at the time of my visit (seen on HD at 11:40AM); breathing and blood pressure appear to be doing better; no acute issues or problems overnight or earlier this AM; on heparin gtt due to subtherapeutic INR. Exam Narrative: Exam Narrative: General: WD/WN male in NAD Heart: normal S1 and S2; no rub Lungs: coarse and few crackles at bases Abdomen: soft, nontender, nondistended, positive bowel sounds Extremities: no cyanosis or clubbing; no edema Skin: warm and dry Objective Data Vital Signs Vital Signs: Vital Signs Temp Pulse Resp BP Pulse Ox 10/30/20 11:30 66 150/67 H 10/30/20 11:15 67 160/66 H 10/30/20 11:00 64 153/74 H 10/30/20 10:45 66 156/70 H 10/30/20 10:40 66 163/77 H 10/30/20 10:07 98 10/30/20 10:00 69 10/30/20 09:07 37.0 C 66 16 170/64 H 10/30/20 08:31 68 10/30/20 08:30 68 10/30/20 08:00 36.7 C 72 14 159/62 H 94 10/30/20 06:00 60 10/30/20 04:00 55 L 96 10/30/20 03:50 61 21 H 97 10/30/20 03:43 36.3 C L 62 20 148/67 H 96 10/30/20 02:00 60 10/30/20 00:11 98 10/30/20 00:00 65 95 10/29/20 23:30 66 26 H 98 10/29/20 23:26 36.2 C L 68 22 H 126/56 L 95 10/29/20 22:00 65 10/29/20 20:00 36.1 C L 81 20 126/67 95 10/29/20 18:26 78 10/29/20 18:00 80 10/29/20 16:00 36.6 C 65 18 152/65 H 99 10/29/20 15:56 72 10/29/20 14:00 65 10/29/20 12:00 36.3 C L 63 16 151/54 H 99 Intake/Output Intake/Output: Intake & Output 10/27/20 10/28/20 10/29/20 10/30/20 23:59 23:59 23:59 23:59 Intake Total 740 490 Output Total 400 Balance 740 90 Meds/Results Medications: Active Medications Generic Name Dose Route Start Last Admin Trade Name Celsa PRN Reason Stop Dose Admin Amiodarone HCl 200 mg 10/30/20 09:00 10/30/20 08:31 Amiodarone Hcl 200 Mg Tablet PO 200 mg Q48HR LUDWIG Administration Atorvastatin Calcium 40 mg 10/29/20 21:00 10/29/20 20:39 Atorvastatin 40 Mg Tablet PO 40 mg HS LUDWIG Administration Cyanocobalamin 1,000 mcg 10/29/20 13:05 10/30/20 08:30 Cyanocobalamin 1,
--- NOTE | 2020-10-30 14:48 | PC.NURSE ---
This patient, David Saleh, was received from dialysis on 10/30/20 at 1448. Report received form Cat RN. 4.5L was removed during dialysis treatment.
[2020-10-30] MEDS: BUMETANIDE INJ 1 MG/4 ML VIAL 3 MG IV PUSH (16:09)
[2020-10-30] MEDS: WARFARIN (*PBKC) 4 MG TABLET PO (16:09)
[2020-10-30 16:13] LABS: Hepatitis B Surface Antigen Negative (Negative)
[2020-10-30 16:30] LABS: Hepatitis B Surface Anti Res Negative
[2020-10-30 16:31] LABS: HAV RESULT Negative (Negative); Hepatitis B Core IgM Result Negative (Negative); Hepatitis C Virus Antibody Negative (Negative)
[2020-10-30 16:54] LABS: Partial Thromboplastin Time 34.7 SECONDS (22.3-36.8)
[2020-10-30] MEDS: METOPROLOL SUCCINATE EXT REL 50 MG TABCR PO (18:48)
[2020-10-30] MEDS: LOSARTAN POTASSIUM 100 MG TABLET PO (18:48)
[2020-10-30 20:08] LABS: Partial Thromboplastin Time 61.7 SECONDS (22.3-36.8)
[2020-10-30] MEDS: ATORVASTATIN 40 MG TABLET PO (21:37)
[2020-10-30] MEDS: HEPARIN SODIUM 5,000 UNITS/ML VIAL 3500 UNITS IV PUSH (21:38)
--- NOTE | 2020-10-30 22:01 | PC.NURSE ---
This patient, David Saleh, was transferred to [facility] on 10/30/20 at 2201. Personal belongings sent with patient. Report given to Patt AJ. Appropriate documentation sent with patient.
[2020-10-31] VITALS (14 sets, daily range): BP systolic 104–171; BP diastolic 53–66; PULSE 57–73; RESP 16–22; TEMP 36.6–36.9; O2SAT 92–100
[2020-10-31 04:13] LABS: INR 1.1; Prothrombin Time 13.6 Seconds (11.1-14.7)
[2020-10-31 04:15] LABS: Partial Thromboplastin Time 117.6 SECONDS (22.3-36.8)
[2020-10-31] MEDS: HEPARIN SOD/D5W 100 UNITS/ML 25,000 UNITS/250 ML BAG 13 UNITS IV CONT (06:27)
[2020-10-31] MEDS: CHOLECALCIFEROL 1,000 UNITS TABLET 5000 UNITS PO (09:17)
[2020-10-31] MEDS: FUROSEMIDE 20 MG TABLET PO (09:18)
[2020-10-31] MEDS: PANTOPRAZOLE 40 MG TABLET PO (09:18)
[2020-10-31] MEDS: METOPROLOL SUCCINATE EXT REL 25 MG TABCR PO (09:18)
[2020-10-31] MEDS: CYANOCOBALAMIN 1,000 MCG TABLET 1000 MCG PO (09:18)
[2020-10-31] MEDS: GABAPENTIN 100 MG CAPSULE 200 MG PO ×3 (09:18→18:08)
--- NOTE | 2020-10-31 10:24 | P.PNIM_ITS ---
Progress Note: A&P Assessment and Plan (1) Congestive heart failure: Code(s): I50.9 - Heart failure, unspecified Status: Acute Assessment and Plan: patient less likely has fluid overload. Patient needs dialysis. He typically has dialysis Sunday. The patient was initially on BiPAP but is now on 5 L per nasal cannula. Patient was given Lasix in the emergency room. Patient was unable to complete dialysis today because the site infiltrated. The patient was given a dose of Lasix when he 1st came to the emergency room. He is given another dose of Bumex by the pyridine recovery operator Will repeat her his echocardiogram echo done on March/2020 shows EF 45-50% mildly increased left ventricular wall thickness, grade 3 diastolic dysfunction, apical inferior wall akinetic, apical septum apical lateral wall and apical anterior wall are hypokinetic, by apical cap is dyskinetic (2) Respiratory failure: Code(s): J96.90 - Respiratory failure, unspecified, unspecified whether with hypoxia or hypercapnia Status: Acute Assessment and Plan: Patient initially was on a BiPAP machine he is back to 5 L now. He typically wears 4.5 L at home. Patient was given Lasix and was placed on the BiPAP initially which appeared to help. will continue BiPAP p.r.n. History of pulmonary embolism. Will do a CTA PE protocol to further evaluate (3) End-stage renal disease on hemodialysis: Code(s): N18.6 - End stage renal disease; Z99.2 - Dependence on renal dialysis Status: Chronic Assessment and Plan: Patient typically have dialysis on Sunday. It was unable to have dialysis today because the site infiltrate. Try again tomorrow for dialysis. Patient's potassium is 5.4 will need dialysis today and monitor (4) Essential hypertension: Code(s): I10 - Essential (primary) hypertension Status: Chronic Assessment and Plan: The patient is on metoprolol, amiodarone, and losartan (5) Paroxysmal atrial fibrillation: Code(s): I48.0 - Paroxysmal atrial fibrillation Status: Chronic Assessment and Plan: the patient is on Coumadin but he has compliance issues at times. The patient is subtherapeutic with INR 1.1. I started the patient on heparin drip protocol as he has a history of pulmonary embolism and is in AFib. We will continue with his Coumadin and check his INR daily. Reuse and heparin drip to bridge him back to his Coumadin. Continue on heparin drip bridge with INR monitoring Coumadin has been restarted (6) Hyperlipidemia: Code(s): E78.5 - Hyperlipidemia, unspecified Status: Chronic Assessment and Plan: Continue with atorvastatin (7) Pulmonary embolism: Qualifiers: Acute cor pulmonale presence: without acute cor pulmonale Chronicity: acute Pulmonary embolism type: unspecified Qualified Code(s): I26.99 - Other pulmonary embolism without acute cor pulmonale Code(s): I26.99 - Other pulmonary embolism without acute cor pulmonale Status: Acute Assessment and Plan: the patient is subtherapeutic on Coumadin. Will bridge him with heparin drip at this time. will evaluate with a CTA PE protocol (8) Acute respiratory failure with hypoxia: Code(s): J96.01 - Acute respiratory failure with hypoxia Status: Acute Assessment and Plan: Patient is on 5 L at this time. Who is typically on 4 and half. (9) Obstructive sleep apnea on CPAP: Code(s): G47.33 - Obstructive sleep apnea (adult) (pediatric); Z99.89 - Dependence on other enabling machines and devices Status: Chronic As
[2020-10-31 10:50] LABS: Partial Thromboplastin Time 80.9 SECONDS (22.3-36.8)
--- NOTE | 2020-10-31 12:40 | PM.PNNEP ---
Progress Note: A&P Assessment and Plan (1) End stage renal disease: Code(s): N18.6 - End stage renal disease Status: Chronic Assessment and Plan: HD yesterday (since unable to do on Sunday) optimization of electrolytes, volume status, and clearance plan HD tomorrow to resume // schedule (2) Fluid overload: Qualifiers: Hypervolemia type: unspecified Qualified Code(s): E87.70 - Fluid overload, unspecified Code(s): E87.70 - Fluid overload, unspecified Status: Acute Assessment and Plan: as noted by admission CXR suspect a component of flash pulmonary edema due to HTN urgency given presentation clinically better today (3) Hypertension: Code(s): I10 - Essential (primary) hypertension Status: Acute Assessment and Plan: better at this time quite elevated on admission follow trend of hemodynamics (4) Pulmonary embolism: Qualifiers: Acute cor pulmonale presence: without acute cor pulmonale Chronicity: acute Pulmonary embolism type: unspecified Qualified Code(s): I26.99 - Other pulmonary embolism without acute cor pulmonale Code(s): I26.99 - Other pulmonary embolism without acute cor pulmonale Status: Acute Assessment and Plan: known history INR was subtherapeutic on admission on heparin gtt currently CT scan of chest to reassess given admission symptoms (5) Failure of hemodialysis access: Code(s): T82.49XA - Other complication of vascular dialysis catheter, initial encounter Status: Acute Assessment and Plan: resolved inflitrated with attempted dialysis on Sunday AVF able to be used successfully yesterday Will continue to follow. Subjective Date/time seen: 10/31/20 12:40 Tolerated dialysis yesterday without any issues or problems; respiratory status has improved significantly following dialysis yesterday; no other acute complaints voiced; no issues/events overnight or earlier this AM; remains on heparin gtt. Exam Narrative: Exam Narrative: General: WD/WN male in NAD Heart: normal S1 and S2; no rub Lungs: decreased at bases Abdomen: soft, nontender, nondistended, positive bowel sounds Extremities: no cyanosis or clubbing; no edema Skin: warm and intact Objective Data Vital Signs Vital Signs: Vital Signs Temp Pulse Resp BP Pulse Ox 10/31/20 10:00 36.9 C 66 18 171/53 H 100 10/31/20 09:18 69 10/31/20 09:00 69 22 H 92 10/31/20 04:00 36.6 C 65 22 H 104/63 92 10/31/20 02:00 67 21 H 96 10/31/20 00:44 36.7 C 63 20 131/57 L 97 10/31/20 00:00 60 10/30/20 23:30 73 18 97 10/30/20 23:28 36.9 C 73 20 142/63 H 96 10/30/20 22:15 74 10/30/20 22:00 78 10/30/20 20:00 36.0 C L 77 20 148/67 H 97 10/30/20 18:48 83 10/30/20 18:00 83 10/30/20 16:00 75 97 10/30/20 15:49 36.4 C 68 14 158/44 H 100 Intake/Output Intake/Output: Intake & Output 10/28/20 10/29/20 10/30/20 10/31/20 23:59 23:59 23:59 23:59 Intake Total 740 1213 1077 Output Total 4900 Balance 740 -7767 1077 Meds/Results Medications: Active Medications Generic Name Dose Route Start Last Admin Trade Name Freq PRN Reason Stop Dose Admin Amiodarone HCl 200 mg 10/30/20 09:00 10/30/20 08:31 Amiodarone Hcl 200 Mg Tablet PO 200 mg Q48HR LUDWIG Administration Atorvastatin Calcium 40 mg 10/29/20 21:00 10/30/20 21:37 Atorvastatin 40 Mg Tablet PO 40 mg HS LUDWIG Administration Bacitracin/Polymyxin B Sulfate 1 applic 10/31/20 09:06 10/31/20 13:37 Bacitracin/Polymyxin B Oint 15 Gm Tube TOPICAL 1 applic BID PRN Administration Itching Cyanocobalamin 1,000 mcg 10/29/20 13:05 10/31/20 09:18 Cyanocobalamin 1,000 Mcg Tablet PO 1,000 mcg DAILY LUDWIG Administration Fluticasone Propionate 1 spray 10/31/20 21:00 Fluticasone Propionate 0.05% Na Spr 16 Gm Btl (*Bkc) NASAL HS
[2020-10-31] MEDS: BACITRACIN/POLYMYXIN B OINT 15 GM TUBE 1 APPLIC TOPICAL (13:37)
[2020-10-31] MEDS: SODIUM POLYSTYRENE SULFONONATE 15 GM/60 ML BTL PO (13:53)
[2020-10-31] MEDS: traMADol HCL (*CRX) 50 MG TABLET PO ×2 (15:14→22:34)
[2020-10-31 17:23] LABS: Partial Thromboplastin Time 61.7 SECONDS (22.3-36.8)
[2020-10-31] MEDS: HEPARIN SODIUM 5,000 UNITS/ML VIAL 3500 UNITS IV PUSH (18:05)
[2020-10-31] MEDS: WARFARIN (*PBKC) 4 MG TABLET PO (18:09)
[2020-10-31] MEDS: METOPROLOL SUCCINATE EXT REL 50 MG TABCR PO (18:09)
[2020-10-31] MEDS: LOSARTAN POTASSIUM 100 MG TABLET PO (18:11)
[2020-10-31] MEDS: FLUTICASONE PROPIONATE 0.05% NA SPR 16 GM BTL (*BKC) 1 SPRAY NASAL (20:43)
[2020-10-31] MEDS: ATORVASTATIN 40 MG TABLET PO (20:44)
[2020-10-31 21:18] LABS: Glucose Point of Care 159 mg/dl (65-105)
[2020-11-01] VITALS (27 sets, daily range): BP systolic 118–184; BP diastolic 39–89; PULSE 51–78; RESP 16–23; TEMP 36.2–37.2; O2SAT 95–100
--- NOTE | 2020-11-01 | ECHO_ITS ---
Patient Info Name: David Saleh Age: 70 years : 1950 Gender: Male Ht: 74 in Wt: 242 lbs BSA: 2.42 m2 HR: 61 bpm BP: 118 / 52 mmHg Heart Rhythm: Sinus Rhythm Technical Quality: Good Exam Date: 11/01/2020 12:21 PM Exam Location: [facility] Patient Status: Inpatient Admit Date: 10/29/2020 Staff Ordering Physician: Sameer Purcell MD Certified Addiction Counselor: Marry Larson RDCS Attending Provider: Sameer Purcell MD Exam Type: CA echo doppler color flow Study Info Complete two-dimensional, color flow and Doppler transthoracic echocardiogram is performed. Summary 1. Complete two-dimensional, color flow and Doppler transthoracic echocardiogram is performed. 2. Left ventricular systolic function is normal, estimated at 50-55%. 3. The left ventricular diastolic function is grade II diastolic dysfunction. 4. Left atrial chamber dimension is mildly enlarged. 5. The mitral valve annulus is moderately calcified. 6. There is trace mitral valve regurgitation. 7. Compared to exam from March of 2020 mitral regurgitation was moderate now is trivial. Left Ventricle Left ventricular chamber dimension is normal. Left ventricular systolic function is normal, estimated at 50-55%. The left ventricular diastolic function is grade II diastolic dysfunction. Right Ventricle Right ventricular chamber dimension is normal. Left Atria Left atrial chamber dimension is mildly enlarged. Right Atria Right atrial chamber dimension is normal. Aortic Valve The aortic valve is trileaflet. There is mild aortic valve sclerosis. Pulmonic Valve The pulmonic valve is not well visualized. Mitral Valve The mitral valve has normal leaflets. There is trace mitral valve regurgitation. The mitral valve annulus is moderately calcified. Tricuspid Valve The tricuspid valve leaflets are normal. Pericardium/Pleural The pericardium appears normal. Aorta The aortic root size at the sinus of Valsalva is normal. Left Ventricular Outflow Tract Name Value Normal LVOT 2D LVOT Diameter 2.4 cm LVOT Doppler LVOT Peak Gradient 2 mmHg LVOT Mean Gradient 1 mmHg LVOT VTI 19 cm LVOT VTI/AV VTI Ratio 0.4 LVOT Stroke Volume 87 ml LVOT CO 4.3 l/min LVOT CI 1.8 l/min/m2 Pulmonic Valve Name Value Normal PV Doppler PV Peak Gradient 5 mmHg Tricuspid Valve Name Value Normal TV Regurgitation Doppler TR
[2020-11-01 00:39] LABS: Partial Thromboplastin Time 131.7 SECONDS (22.3-36.8)
[2020-11-01] MEDS: HEPARIN SOD/D5W 100 UNITS/ML 25,000 UNITS/250 ML BAG 13 UNITS IV CONT ×2 (01:19→21:36)
[2020-11-01 05:32] LABS: Basophils Absolute Auto 0.1 K/mm3 (0.0-0.1); Basophils Percent Auto 1.1 % (0.2-1.2); Eosinophils Absolute Auto 0.5 K/mm3 (0-0.3); Eosinophils Percent Auto 5.9 % (0-4.4); Hematocrit 26.4 % (42.0-52.0); Hemoglobin 8.7 g/dL (14.0-18.0); Immature Granulocyte Absolute 0.06 K/mm3 (0.00-0.031); Immature Granulocyte Percent A 0.7 % (0-0.5); Lymphocytes Absolute Auto 2.02 K/mm3 (0.9-3.2); Mean Corpuscular Hemoglobin 33.5 pg (26-34); Mean Corpuscular Volume 101.5 fl (80-100); Mean Platelet Volume 9.2 fl (7.4-10.4); Monocytes Absolute Auto 1.4 K/mm3 (0.1-0.6); Neutrophils Absolute Auto 4.4 K/mm3 (1.3-6.7); Neutrophils Percent Auto 52.3 % (45.5-73.1); Platelet Count Result 318 k/mm3 (150-375); Red Cell Distribution Width 14.6 % (11.5-14.5); White Blood Count 8.4 K/mm3 (4.5-10.0)
[2020-11-01 05:50] LABS: Albumin Level 3.4 g/dL (3.5-5.1); Anion Gap 13 mmol/L (8-16); Blood Urea Nitrogen 39 mg/dL (9-20); Calcium 8.4 mg/dL (8.4-10.2); Carbon Dioxide 26 mmol/L (22-30); Chloride 91 mmol/L (98-107); Estimated CRCL calculation 11 ml/min; Estimated Glomerular Filt Rate 7; Glucose 126 mg/dL (75-110); Phosphorus 6.8 mg/dL (2.5-4.5); Potassium 4.7 mmol/L (3.4-5.0); Sodium 130 mmol/L (137-145)
[2020-11-01 05:53] LABS: INR 1.1; Prothrombin Time 14.1 Seconds (11.1-14.7)
[2020-11-01 07:29] LABS: Partial Thromboplastin Time 89.4 SECONDS (22.3-36.8)
[2020-11-01 07:32] LABS: Glucose Point of Care 115 mg/dl (65-105)
[2020-11-01] MEDS: METOPROLOL SUCCINATE EXT REL 25 MG TABCR PO (08:13)
[2020-11-01] MEDS: PANTOPRAZOLE 40 MG TABLET PO (08:13)
[2020-11-01] MEDS: GABAPENTIN 100 MG CAPSULE 200 MG PO ×3 (08:13→21:49)
[2020-11-01] MEDS: CHOLECALCIFEROL 1,000 UNITS TABLET 5000 UNITS PO (08:13)
[2020-11-01] MEDS: AMIODARONE HCL 200 MG TABLET PO (08:15)
[2020-11-01] MEDS: CYANOCOBALAMIN 1,000 MCG TABLET 1000 MCG PO (08:15)
[2020-11-01] MEDS: FUROSEMIDE 20 MG TABLET PO (08:15)
--- NOTE | 2020-11-01 09:45 | PM.IMPN ---
Progress Note: A&P Assessment and Plan (1) Congestive heart failure: Code(s): I50.9 - Heart failure, unspecified Status: Acute Assessment and Plan: patient less likely has fluid overload. Patient needs dialysis. He typically has dialysis Sunday. The patient was initially on BiPAP but is now on 5 L per nasal cannula. Patient was given Lasix in the emergency room. Patient was unable to complete dialysis today because the site infiltrated. The patient was given a dose of Lasix when he 1st came to the emergency room. He is given another dose of Bumex by the wharf tender helper Will repeat her his echocardiogram echo done on March/2020 shows EF 45-50% mildly increased left ventricular wall thickness, grade 3 diastolic dysfunction, apical inferior wall akinetic, apical septum apical lateral wall and apical anterior wall are hypokinetic, by apical cap is dyskinetic 11/01/20: Will continue current plan of care and treatment,will schedule dialysis. (2) Respiratory failure: Code(s): J96.90 - Respiratory failure, unspecified, unspecified whether with hypoxia or hypercapnia Status: Acute Assessment and Plan: Patient initially was on a BiPAP machine he is back to 5 L now. He typically wears 4.5 L at home. Patient was given Lasix and was placed on the BiPAP initially which appeared to help. will continue BiPAP p.r.n. History of pulmonary embolism. CT of the chest negative for PE will continue current treatment. (3) End-stage renal disease on hemodialysis: Code(s): N18.6 - End stage renal disease; Z99.2 - Dependence on renal dialysis Status: Chronic Assessment and Plan: Patient typically have dialysis on Sunday. It was unable to have dialysis today because the site infiltrate. Try again tomorrow for dialysis. Patient's potassium is 5.4 will need dialysis today and monitor (4) Essential hypertension: Code(s): I10 - Essential (primary) hypertension Status: Chronic Assessment and Plan: The patient is on metoprolol, amiodarone, and losartan (5) Paroxysmal atrial fibrillation: Code(s): I48.0 - Paroxysmal atrial fibrillation Status: Chronic Assessment and Plan: the patient is on Coumadin but he has compliance issues at times. The patient is subtherapeutic with INR 1.1. I started the patient on heparin drip protocol as he has a history of pulmonary embolism and is in AFib. We will continue with his Coumadin and check his INR daily. Reuse and heparin drip to bridge him back to his Coumadin. Continue on heparin drip bridge with INR monitoring Coumadin has been restarted (6) Hyperlipidemia: Code(s): E78.5 - Hyperlipidemia, unspecified Status: Chronic Assessment and Plan: Continue with atorvastatin (7) Pulmonary embolism: Qualifiers: Acute cor pulmonale presence: without acute cor pulmonale Chronicity: acute Pulmonary embolism type: unspecified Qualified Code(s): I26.99 - Other pulmonary embolism without acute cor pulmonale Code(s): I26.99 - Other pulmonary embolism without acute cor pulmonale Status: Acute Assessment and Plan: the patient is subtherapeutic on Coumadin. Will bridge him with heparin drip at this time. will evaluate with a CTA PE protocol (8) Acute respiratory failure with hypoxia: Code(s): J96.01 - Acute respiratory failure with hypoxia Status: Acute Assessment and Plan: Patient is on 5 L at this time. Who is typically on 4 and half. (9) Obstructive sleep apnea on CPAP: Code(s): G47.33 - Obstructive sleep apnea (adult) (pediatric); Z99.89 - Dependence on other enabling machines and devices Status: Chronic Assessment and Plan: Continue with home CPAP. (10) Chronic anemia: Code(s): D64.9 - Anemia, unspecified Status: Chronic Assessment and Plan: Continue to monitor. He is abov
--- NOTE | 2020-11-01 10:34 | PM.PNNEP ---
Progress Note: A&P Assessment and Plan (1) End stage renal disease: Code(s): N18.6 - End stage renal disease Status: Chronic Assessment and Plan: HD due today. optimization of electrolytes, volume status, and clearance Await dialysis nurses. (2) Fluid overload: Qualifiers: Hypervolemia type: unspecified Qualified Code(s): E87.70 - Fluid overload, unspecified Code(s): E87.70 - Fluid overload, unspecified Status: Acute Assessment and Plan: as noted by admission CXR suspect a component of flash pulmonary edema due to HTN urgency given presentation His breathing seems better but he is still short of breath. Will remove more fluid on dialysis today. (3) Hypertension: Code(s): I10 - Essential (primary) hypertension Status: Acute Assessment and Plan: better at this time quite elevated on admission follow trend of hemodynamics (4) Pulmonary embolism: Qualifiers: Acute cor pulmonale presence: without acute cor pulmonale Chronicity: acute Pulmonary embolism type: unspecified Qualified Code(s): I26.99 - Other pulmonary embolism without acute cor pulmonale Code(s): I26.99 - Other pulmonary embolism without acute cor pulmonale Status: Acute Assessment and Plan: known history INR was subtherapeutic on admission It was 1.9 on his prior home monitor. He was on 6 mg of Coumadin alternating with 9 mg of Coumadin at home and had an INR of 1.9. It sounds like he needs more Coumadin. Perhaps we should increase his Coumadin dose. I am pretty sure that he is compliant with his dosage. (5) Failure of hemodialysis access: Code(s): T82.49XA - Other complication of vascular dialysis catheter, initial encounter Status: Acute Assessment and Plan: resolved inflitrated with attempted dialysis on Sunday AVF To be used today. Subjective Date/time seen: 11/01/20 10:34 Interval history: Patient is feeling about the same. He has a productive cough. He is still short of breath. He wears his BiPAP mask during the day. He is due for dialysis today. Exam Narrative: Exam Narrative: General: WD/WN male in NAD Heart: normal S1 and S2; no rub Lungs: decreased at bases . Some coarseness to respirations. Abdomen: soft, nontender, nondistended, positive bowel sounds Extremities: no cyanosis or clubbing; no edema Skin: No rash Objective Data Vital Signs Vital Signs: Vital Signs - 24 hr 10/31/20 12:00 10/31/20 14:00 10/31/20 14:17 Temperature 36.6 C Pulse Rate 70 63 Respiratory Rate 18 Blood Pressure 169/66 H Pulse Oximetry 100 96 10/31/20 16:00 10/31/20 18:09 10/31/20 20:00 Temperature Pulse Rate 59 L 63 73 Respiratory Rate Blood Pressure Pulse Oximetry 97 10/31/20 22:00 11/01/20 00:00 11/01/20 00:12 Temperature 36.6 C 36.6 C Pulse Rate 57 L 55 L 72 Respiratory Rate 16 16 23 H Blood Pressure 122/58 L 118/52 L Pulse Oximetry 100 100 97 11/01/20 02:25 11/01/20 04:00 11/01/20 08:00 Temperature 36.4 C 36.3 C L Pulse Rate 76 59 L 57 L Respiratory Rate 22 H 16 16 Blood Pressure 146/71 H 136/39 L Pulse Oximetry 95 100 100 11/01/20 08:13 11/01/20 08:15 Temperature Pulse Rate 63 63 Respiratory Rate Blood Pressure Pulse Oximetry Intake/Output Intake/Output: Intake & Output 10/29/20 10/30/20 10/31/20 11/01/20 23:59 23:59 23:59 23:59 Intake Total 740 1213 1817 550 Output Total 4900 Balance 740 -9674 1812 550 Meds/Results Medications: Active Medications Generic Name Dose Route Start Last Admin Trade Name Celsa PRN Reason Stop Dose Admin Amiodarone HCl 200 mg 10/30/20 09:00 11/01/20 08:15 Amiodarone Hcl 200 Mg Tablet PO 200 mg Q48HR LUDWIG Administration Atorvastatin Calcium 40 mg 10/29/20 21:00 10/31/20 20:44 Atorvastatin 40 Mg Tablet PO 40 mg HS LUDWIG Administration B
[2020-11-01 12:32] LABS: Glucose Point of Care 172 mg/dl (65-105)
[2020-11-01 13:27] LABS: Partial Thromboplastin Time 85.9 SECONDS (22.3-36.8)
[2020-11-01] MEDS: traMADol HCL (*CRX) 50 MG TABLET PO ×2 (14:08→23:17)
[2020-11-01 16:25] LABS: Glucose Point of Care 118 mg/dl (65-105)
--- NOTE | 2020-11-01 16:45 | PC.NURSE ---
pt to ICU1 for dialysis tx
--- NOTE | 2020-11-01 18:46 | PC.NURSE ---
On 11/01/20, the LP RN, Sera Aden, provided care and completed [facility] documentation on this patient. I have reviewed the LP RN's documentation and agree with the findings.
[2020-11-01] MEDS: ATORVASTATIN 40 MG TABLET PO (21:49)
[2020-11-01] MEDS: LOSARTAN POTASSIUM 100 MG TABLET PO (21:49)
[2020-11-01] MEDS: METOPROLOL SUCCINATE EXT REL 50 MG TABCR PO (21:50)
[2020-11-01] MEDS: FLUTICASONE PROPIONATE 0.05% NA SPR 16 GM BTL (*BKC) 1 SPRAY NASAL (21:53)
[2020-11-01] MEDS: WARFARIN (*PBKC) 4 MG TABLET PO (21:58)
[2020-11-02] VITALS (14 sets, daily range): BP systolic 120–155; BP diastolic 50–62; PULSE 59–88; RESP 16–21; TEMP 36.4–36.9; O2SAT 96–100
[2020-11-02 05:04] LABS: Basophils Absolute Auto 0.1 K/mm3 (0.0-0.1); Basophils Percent Auto 1.1 % (0.2-1.2); Eosinophils Absolute Auto 0.4 K/mm3 (0-0.3); Eosinophils Percent Auto 5.2 % (0-4.4); Hematocrit 28.1 % (42.0-52.0); Immature Granulocyte Absolute 0.05 K/mm3 (0.00-0.031); Immature Granulocyte Percent A 0.7 % (0-0.5); Lymphocytes Absolute Auto 1.35 K/mm3 (0.9-3.2); Lymphocytes Percent Auto 17.9 % (18.3-44.2); Mean Corpuscular Hemoglobin 32.8 pg (26-34); Mean Corpuscular Volume 102.6 fl (80-100); Mean Platelet Volume 9.2 fl (7.4-10.4); Monocytes Absolute Auto 1.2 K/mm3 (0.1-0.6); Monocytes Percent Auto 15.6 % (2.6-8.5); Neutrophils Absolute Auto 4.5 K/mm3 (1.3-6.7); Neutrophils Percent Auto 59.5 % (45.5-73.1); Platelet Count Result 315 k/mm3 (150-375); Red Blood Count 2.74 M/mm3 (4.6-6.20); Red Cell Distribution Width 14.7 % (11.5-14.5); White Blood Count 7.6 K/mm3 (4.5-10.0)
[2020-11-02 05:23] LABS: INR 1.2; Prothrombin Time 14.6 Seconds (11.1-14.7)
[2020-11-02 05:25] LABS: Partial Thromboplastin Time 73.5 SECONDS (22.3-36.8)
[2020-11-02 05:34] LABS: Albumin Level 3.6 g/dL (3.5-5.1); Anion Gap 8 mmol/L (8-16); Blood Urea Nitrogen 22 mg/dL (9-20); Calcium 8.5 mg/dL (8.4-10.2); Carbon Dioxide 29 mmol/L (22-30); Chloride 99 mmol/L (98-107); Estimated CRCL calculation 13 ml/min; Estimated Glomerular Filt Rate 10; Glucose 117 mg/dL (75-110); Phosphorus 5.6 mg/dL (2.5-4.5); Potassium 4.4 mmol/L (3.4-5.0); Sodium 136 mmol/L (137-145)
--- NOTE | 2020-11-02 07:36 | PM.PNNEP ---
Progress Note: A&P Assessment and Plan (1) End stage renal disease: Code(s): N18.6 - End stage renal disease Status: Chronic Assessment and Plan: HD due tomorrow remove more fluid as tolerated. His edema is better. (2) Fluid overload: Qualifiers: Hypervolemia type: unspecified Qualified Code(s): E87.70 - Fluid overload, unspecified Code(s): E87.70 - Fluid overload, unspecified Status: Acute Assessment and Plan: as noted by admission CXR suspect a component of flash pulmonary edema due to HTN urgency given presentation His breathing seems better but he is still short of breath. Will remove more fluid on dialysis today. (3) Hypertension: Code(s): I10 - Essential (primary) hypertension Status: Acute Assessment and Plan: Well controlled with fluid removal and medications. (4) Pulmonary embolism: Qualifiers: Acute cor pulmonale presence: without acute cor pulmonale Chronicity: acute Pulmonary embolism type: unspecified Qualified Code(s): I26.99 - Other pulmonary embolism without acute cor pulmonale Code(s): I26.99 - Other pulmonary embolism without acute cor pulmonale Status: Acute Assessment and Plan: known history INR was subtherapeutic on admission INR 1.2 today. Coumadin increased to7mg per day. Subjective Date/time seen: 11/02/20 07:36 Interval history: Patient is feeling about the same. He has a productive cough. He is still short of breath. He wears his BiPAP mask at night and as needed during the day He had dialysis yesterday and they removed 4L apparently. Exam Narrative: Exam Narrative: General: WD/WN male in NAD Heart: normal S1 and S2; no rub or gallop Lungs: decreased at bases . Some coarseness to respirations. Abdomen: soft, nontender, nondistended, positive bowel sounds Extremities: no cyanosis or clubbing; no edema Skin: No rash Or subcu nodules Objective Data Vital Signs Vital Signs: Vital Signs - 24 hr 11/01/20 08:00 11/01/20 08:13 11/01/20 08:15 Temperature 36.3 C L Pulse Rate 68 63 63 Respiratory Rate 16 Blood Pressure 136/39 L Pulse Oximetry 100 100 11/01/20 12:00 11/01/20 16:00 11/01/20 17:00 Temperature 36.2 C L 36.8 C Pulse Rate 56 L 67 66 Respiratory Rate 16 18 Blood Pressure 153/64 H 177/89 H Pulse Oximetry 97 11/01/20 17:15 11/01/20 17:30 11/01/20 17:45 Temperature Pulse Rate 70 70 66 Respiratory Rate Blood Pressure 168/72 H 168/72 H 169/72 H Pulse Oximetry 11/01/20 18:00 11/01/20 18:15 11/01/20 18:30 Temperature Pulse Rate 69 67 64 Respiratory Rate Blood Pressure 175/68 H 165/74 H 170/81 H Pulse Oximetry 11/01/20 18:45 11/01/20 19:00 11/01/20 19:15 Temperature Pulse Rate 66 72 73 Respiratory Rate Blood Pressure 169/72 H 169/75 H 164/70 H Pulse Oximetry 11/01/20 19:30 11/01/20 19:45 11/01/20 20:00 Temperature Pulse Rate 72 66 78 Respiratory Rate Blood Pressure 184/84 H 183/77 H 179/85 H Pulse Oximetry 97 11/01/20 20:15 11/01/20 20:30 11/01/20 20:45 Temperature Pulse Rate 78 68 66 Respiratory Rate Blood Pressure 171/83 H 175/64 H 159/76 H Pulse Oximetry 11/01/20 21:00 11/01/20 21:50 11/02/20 00:00 Temperature 37.2 C 36.5 C Pulse Rate 74 60 64 Respiratory Rate 18 16 Blood Pressure 170/84 H 120/58 L Pulse Oximetry 99 11/02/20 00:07 11/02/20 04:00 11/02/20 06:00 Temperature 36.5 C Pulse Rate 77 59 L 66 Respiratory Rate 19 18 Blood Pressure 126/50 L Pulse Oximetry 96 99 Intake/Output Intake/Output: Intake & Output 10/30/20 10/31/20 11/01/20 11/02/20 23:59 23:59 23:59 23:59 Intake Total 1213 1817 1640 300 Output Total 4900 Balance -3687 1817 1640 300 Meds/Results Medications: Active Medications Generic Name Dose Route Start Last Admin Trade Name Freq PRN Reason Stop Dos
[2020-11-02] MEDS: GABAPENTIN 100 MG CAPSULE 200 MG PO ×3 (08:04→21:11)
[2020-11-02] MEDS: FUROSEMIDE 20 MG TABLET PO (08:05)
[2020-11-02] MEDS: PANTOPRAZOLE 40 MG TABLET PO (08:05)
[2020-11-02] MEDS: CHOLECALCIFEROL 1,000 UNITS TABLET 5000 UNITS PO (08:05)
[2020-11-02] MEDS: METOPROLOL SUCCINATE EXT REL 25 MG TABCR PO (08:05)
[2020-11-02] MEDS: CYANOCOBALAMIN 1,000 MCG TABLET 1000 MCG PO (08:05)
[2020-11-02] MEDS: EPOETIN ALFA-EPBX 10,000 UNITS/ML VIAL 10000 UNITS SUB-Q (09:03)
--- NOTE | 2020-11-02 13:13 | PM.IMPN ---
Progress Note: A&P Assessment and Plan (1) Congestive heart failure: Code(s): I50.9 - Heart failure, unspecified Status: Acute Assessment and Plan: patient less likely has fluid overload. Patient needs dialysis. He typically has dialysis Sunday. The patient was initially on BiPAP but is now on 5 L per nasal cannula. Patient was given Lasix in the emergency room. Patient was unable to complete dialysis today because the site infiltrated. The patient was given a dose of Lasix when he 1st came to the emergency room. He is given another dose of Bumex by the diesel pile driver operator Will repeat her his echocardiogram echo done on March/2020 shows EF 45-50% mildly increased left ventricular wall thickness, grade 3 diastolic dysfunction, apical inferior wall akinetic, apical septum apical lateral wall and apical anterior wall are hypokinetic, by apical cap is dyskinetic 11/01/20: Will continue current plan of care and treatment,will schedule dialysis. 11/02/20 13:13 patient is 70-year-old male with history of end-stage renal disease on hemodialysis on Sunday and Sunday, chronic respiratory failure on home oxygen 4.5 L per nasal cannula with history of chronic pulmonary emboli on Coumadin upon arrival patient INR is 1.1, and with complaint of shortness of breath suspected volume overload and patient had dialysis, currently patient states the cough is still persisting and been short of breath, patient states he has been taking his Coumadin as prescribed however his INR was 1.[address] Cardenas his diesel pile driver operator and today increased Coumadin to 7 mg q.day will continue to monitor, CT scan of the chest showed persistent and chronic pulmonary emboli and pulmonary edema, will have PT OT evaluate the patient and further recommendation to follow, (2) Respiratory failure: Code(s): J96.90 - Respiratory failure, unspecified, unspecified whether with hypoxia or hypercapnia Status: Acute Assessment and Plan: Patient initially was on a BiPAP machine he is back to 5 L now. He typically wears 4.5 L at home. Patient was given Lasix and was placed on the BiPAP initially which appeared to help. will continue BiPAP p.r.n. History of pulmonary embolism. CT of the chest negative for PE will continue current treatment. (3) End-stage renal disease on hemodialysis: Code(s): N18.6 - End stage renal disease; Z99.2 - Dependence on renal dialysis Status: Chronic Assessment and Plan: Patient typically have dialysis on Sunday. It was unable to have dialysis today because the site infiltrate. Try again tomorrow for dialysis. Patient's potassium is 5.4 will need dialysis today and monitor (4) Essential hypertension: Code(s): I10 - Essential (primary) hypertension Status: Chronic Assessment and Plan: The patient is on metoprolol, amiodarone, and losartan (5) Paroxysmal atrial fibrillation: Code(s): I48.0 - Paroxysmal atrial fibrillation Status: Chronic Assessment and Plan: the patient is on Coumadin but he has compliance issues at times. The patient is subtherapeutic with INR 1.1. I started the patient on heparin drip protocol as he has a history of pulmonary embolism and is in AFib. We will continue with his Coumadin and check his INR daily. Reuse and heparin drip to bridge him back to his Coumadin. Continue on heparin drip bridge with INR monitoring Coumadin has been restarted (6) Hyperlipidemia: Code(s): E78.5 - Hyperlipidemia, unspecified Status: Chronic Assessment and Plan: Continue with atorvastatin (7) Pulmonary embolism: Qualifiers: Acute cor pulmonale presence: without acute cor pulmonale Chronicity: acute Pulmonary embolism type: unspecified Qualified Code(s): I26.99 - Other pulmonary embolism without acute cor pulmonale Code(s): I26.99 - Other pulmonary embolism wi
[2020-11-02] MEDS: ONDANSETRON INJ 4 MG/2 ML VIAL IV PUSH (15:49)
[2020-11-02] MEDS: traMADol HCL (*CRX) 50 MG TABLET PO (15:54)
[2020-11-02] MEDS: HEPARIN SOD/D5W 100 UNITS/ML 25,000 UNITS/250 ML BAG 13 UNITS IV CONT (15:55)
[2020-11-02] MEDS: WARFARIN (*PBKC) 3 MG TABLET PO (21:11)
[2020-11-02] MEDS: ATORVASTATIN 40 MG TABLET PO (21:12)
[2020-11-02] MEDS: WARFARIN (*PBKC) 4 MG TABLET PO (21:12)
[2020-11-02] MEDS: FLUTICASONE PROPIONATE 0.05% NA SPR 16 GM BTL (*BKC) 1 SPRAY NASAL (21:13)
[2020-11-02] MEDS: LOSARTAN POTASSIUM 100 MG TABLET PO (21:13)
[2020-11-02] MEDS: METOPROLOL SUCCINATE EXT REL 50 MG TABCR PO (21:14)
--- NOTE | 2020-11-02 21:18 | PC.NURSE ---
2100 PT REFUSED TO HAVE BLOOD SUGAR CHECKED STATED HE DID NOT WANT TO BE STUCK BECAUSE HE IS NOT DIABETIC.
[2020-11-03] VITALS (20 sets, daily range): BP systolic 104–160; BP diastolic 50–81; PULSE 56–76; RESP 16–20; TEMP 36–36.8; O2SAT 91–98
[2020-11-03] MEDS: traMADol HCL (*CRX) 50 MG TABLET PO ×2 (00:16→14:02)
[2020-11-03 05:43] LABS: Basophils Absolute Auto 0.1 K/mm3 (0.0-0.1); Basophils Percent Auto 0.7 % (0.2-1.2); Eosinophils Absolute Auto 0.6 K/mm3 (0-0.3); Eosinophils Percent Auto 5.8 % (0-4.4); Hematocrit 27.4 % (42.0-52.0); Hemoglobin 9.2 g/dL (14.0-18.0); Immature Granulocyte Absolute 0.07 K/mm3 (0.00-0.031); Immature Granulocyte Percent A 0.7 % (0-0.5); Lymphocytes Absolute Auto 2.17 K/mm3 (0.9-3.2); Lymphocytes Percent Auto 21.9 % (18.3-44.2); Mean Corpuscular HGB Conc 33.6 g/dl (32-36); Mean Corpuscular Hemoglobin 33.5 pg (26-34); Mean Corpuscular Volume 99.6 fl (80-100); Mean Platelet Volume 9.2 fl (7.4-10.4); Monocytes Absolute Auto 1.7 K/mm3 (0.1-0.6); Monocytes Percent Auto 17.5 % (2.6-8.5); Neutrophils Absolute Auto 5.3 K/mm3 (1.3-6.7); Neutrophils Percent Auto 53.4 % (45.5-73.1); Platelet Count Result 352 k/mm3 (150-375); Red Blood Count 2.75 M/mm3 (4.6-6.20); Red Cell Distribution Width 14.7 % (11.5-14.5); White Blood Count 9.9 K/mm3 (4.5-10.0)
[2020-11-03 05:44] LABS: INR 1.3; Prothrombin Time 15.5 Seconds (11.1-14.7)
[2020-11-03 05:57] LABS: Albumin Level 3.9 g/dL (3.5-5.1); Anion Gap 13 mmol/L (8-16); Blood Urea Nitrogen 31 mg/dL (9-20); Calcium 8.9 mg/dL (8.4-10.2); Carbon Dioxide 27 mmol/L (22-30); Chloride 92 mmol/L (98-107); Estimated CRCL calculation 12 ml/min; Estimated Glomerular Filt Rate 8; Glucose 112 mg/dL (75-110); Phosphorus 6.3 mg/dL (2.5-4.5); Potassium 5.2 mmol/L (3.4-5.0); Sodium 132 mmol/L (137-145)
[2020-11-03] MEDS: PANTOPRAZOLE 40 MG TABLET PO (08:11)
[2020-11-03] MEDS: AMIODARONE HCL 200 MG TABLET PO (08:11)
[2020-11-03] MEDS: CHOLECALCIFEROL 1,000 UNITS TABLET 5000 UNITS PO (08:11)
[2020-11-03] MEDS: METOPROLOL SUCCINATE EXT REL 25 MG TABCR PO (08:12)
[2020-11-03] MEDS: CYANOCOBALAMIN 1,000 MCG TABLET 1000 MCG PO (08:12)
[2020-11-03] MEDS: GABAPENTIN 100 MG CAPSULE 200 MG PO ×3 (08:12→20:51)
[2020-11-03] MEDS: FUROSEMIDE 20 MG TABLET PO (08:12)
--- NOTE | 2020-11-03 09:31 | PC.NURSE ---
To dialysis per bed set up mechanic coil winding machines Toni.
[2020-11-03] MEDS: EPOETIN ALFA-EPBX 10,000 UNITS/ML VIAL 10000 UNITS IV PUSH (11:40)
--- NOTE | 2020-11-03 13:28 | PM.PNNEP ---
Progress Note: A&P Assessment and Plan (1) End stage renal disease: Code(s): N18.6 - End stage renal disease Status: Chronic Assessment and Plan: HD in process remove more fluid as tolerated. His edema is improved (2) Fluid overload: Qualifiers: Hypervolemia type: unspecified Qualified Code(s): E87.70 - Fluid overload, unspecified Code(s): E87.70 - Fluid overload, unspecified Status: Acute Assessment and Plan: as noted by admission CXR most likely due to salt and water indiscretion (3) Hypertension: Code(s): I10 - Essential (primary) hypertension Status: Acute Assessment and Plan: Well controlled with fluid removal and medications. systolic about 150 before dialysis. Will see how it is after dialysis. (4) Pulmonary embolism: Qualifiers: Acute cor pulmonale presence: without acute cor pulmonale Chronicity: acute Pulmonary embolism type: unspecified Qualified Code(s): I26.99 - Other pulmonary embolism without acute cor pulmonale Code(s): I26.99 - Other pulmonary embolism without acute cor pulmonale Status: Acute Assessment and Plan: known history INR was subtherapeutic on admission INR 1.3 today. Coumadin at 7mg per day. Subjective Date/time seen: 11/03/20 13:28 Interval history: Patient is On dialysis and tolerating it well. Seen at noon. Breathing better without oxygen today. He wears his BiPAP mask at night and as needed during the day Working toward about 3.5L off today. Exam Narrative: Exam Narrative: General: WD/WN male in NAD Heart: normal S1 and S2; no rub Lungs: decreased at bases . Some coarseness to respirations. Abdomen: BS positive, soft Extremities: no cyanosis or clubbing; no edema Skin: No rash Objective Data Vital Signs Vital Signs: Vital Signs - 24 hr 11/02/20 14:25 11/02/20 16:00 11/02/20 18:00 Temperature 36.7 C 36.9 C Pulse Rate 60 63 74 Respiratory Rate 18 18 Blood Pressure 144/54 H 148/62 H Pulse Oximetry 99 98 11/02/20 20:00 11/02/20 21:14 11/02/20 23:45 Temperature 36.4 C Pulse Rate 70 66 76 Respiratory Rate 20 21 H Blood Pressure 152/60 H Pulse Oximetry 100 97 11/03/20 00:00 11/03/20 04:00 11/03/20 08:00 Temperature 36.4 C L 36.1 C L Pulse Rate 56 L 68 65 Respiratory Rate 18 18 Blood Pressure 134/65 137/50 L Pulse Oximetry 98 96 11/03/20 08:11 11/03/20 08:12 11/03/20 09:34 Temperature 36.6 C Pulse Rate 65 65 63 Respiratory Rate 18 Blood Pressure 155/64 H Pulse Oximetry 11/03/20 09:45 11/03/20 12:00 Temperature Pulse Rate 60 62 Respiratory Rate Blood Pressure 152/70 H Pulse Oximetry Intake/Output Intake/Output: Intake & Output 10/31/20 11/01/20 11/02/20 11/03/20 23:59 23:59 23:59 23:59 Intake Total 1817 1640 1770 1020 Balance 1817 1640 1770 1020 Meds/Results Medications: Active Medications Generic Name Dose Route Start Last Admin Trade Name Freq PRN Reason Stop Dose Admin Amiodarone HCl 200 mg 10/30/20 09:00 11/03/20 08:11 Amiodarone Hcl 200 Mg Tablet PO 200 mg Q48HR LUDWIG Administration Atorvastatin Calcium 40 mg 10/29/20 21:00 11/02/20 21:12 Atorvastatin 40 Mg Tablet PO 40 mg HS LUDWIG Administration Bacitracin/Polymyxin B Sulfate 1 applic 10/31/20 09:06 10/31/20 13:37 Bacitracin/Polymyxin B Oint 15 Gm Tube TOPICAL 1 applic BID PRN Administration Itching Cyanocobalamin 1,000 mcg 10/29/20 13:05 11/03/20 08:12 Cyanocobalamin 1,000 Mcg Tablet PO 1,000 mcg DAILY LUDWIG Administration Epoetin Pablo-epbx 10,000 units 11/03/20 09:00 11/03/20 11:40 Epoetin Pablo-Epbx 10,000 Units/Ml Vial IV PUSH 10,000 units MOWEFR LUDWIG Administration Fluticasone Propionate 1 spray 10/31/20 21:00 11/02/20 21:13 Fluticasone Propionate 0.05% Na Spr 16 Gm Btl (*Bkc) NASAL 1 spray HS LUDWIG Administrat
--- NOTE | 2020-11-03 13:54 | PC.NURSE ---
Pt returned from dialysis 3 liter removed per RN
[2020-11-03] MEDS: HEPARIN SOD/D5W 100 UNITS/ML 25,000 UNITS/250 ML BAG 13 UNITS IV CONT (14:15)
--- NOTE | 2020-11-03 17:55 | PM.IMPN ---
Progress Note: A&P Assessment and Plan (1) Congestive heart failure: Code(s): I50.9 - Heart failure, unspecified Status: Acute Assessment and Plan: patient less likely has fluid overload. Patient needs dialysis. He typically has dialysis Sunday. The patient was initially on BiPAP but is now on 5 L per nasal cannula. Patient was given Lasix in the emergency room. Patient was unable to complete dialysis today because the site infiltrated. The patient was given a dose of Lasix when he 1st came to the emergency room. He is given another dose of Bumex by the sales and marketing professional Will repeat her his echocardiogram echo done on March/2020 shows EF 45-50% mildly increased left ventricular wall thickness, grade 3 diastolic dysfunction, apical inferior wall akinetic, apical septum apical lateral wall and apical anterior wall are hypokinetic, by apical cap is dyskinetic 11/01/20: Will continue current plan of care and treatment,will schedule dialysis. 11/03/20 17:55 11/02 patient is 70-year-old male with history of end-stage renal disease on hemodialysis on Sunday and Sunday, chronic respiratory failure on home oxygen 4.5 L per nasal cannula with history of chronic pulmonary emboli on Coumadin upon arrival patient INR is 1.1, and with complaint of shortness of breath suspected volume overload and patient had dialysis, currently patient states the cough is still persisting and been short of breath, patient states he has been taking his Coumadin as prescribed however his INR was 1.[address] Cardenas his sales and marketing professional and today increased Coumadin to 7 mg q.day will continue to monitor, CT scan of the chest showed persistent and chronic pulmonary emboli and pulmonary edema, will have PT OT evaluate the patient and further recommendation to follow. 11/03 today patient had a dialysis 2 L was removed states feeling little better, lungs sound congested, clinically stable, today patient INR is 1.3 is currently on warfarin 7 mg q.day and bridged with heparin, will continue to monitor goal is once the patient reached INR 2 and for 2 consecutive days will discharge the patient home. (2) Respiratory failure: Code(s): J96.90 - Respiratory failure, unspecified, unspecified whether with hypoxia or hypercapnia Status: Acute Assessment and Plan: Patient initially was on a BiPAP machine he is back to 5 L now. He typically wears 4.5 L at home. Patient was given Lasix and was placed on the BiPAP initially which appeared to help. will continue BiPAP p.r.n. History of pulmonary embolism. CT of the chest negative for PE will continue current treatment. (3) End-stage renal disease on hemodialysis: Code(s): N18.6 - End stage renal disease; Z99.2 - Dependence on renal dialysis Status: Chronic Assessment and Plan: Patient typically have dialysis on Sunday. It was unable to have dialysis today because the site infiltrate. Try again tomorrow for dialysis. Patient's potassium is 5.4 will need dialysis today and monitor (4) Essential hypertension: Code(s): I10 - Essential (primary) hypertension Status: Chronic Assessment and Plan: The patient is on metoprolol, amiodarone, and losartan (5) Paroxysmal atrial fibrillation: Code(s): I48.0 - Paroxysmal atrial fibrillation Status: Chronic Assessment and Plan: the patient is on Coumadin but he has compliance issues at times. The patient is subtherapeutic with INR 1.1. I started the patient on heparin drip protocol as he has a history of pulmonary embolism and is in AFib. We will continue with his Coumadin and check his INR daily. Reuse and heparin drip to bridge him back to his Coumadin. Continue on heparin drip bridge with INR monitoring Coumadin has been restarted (6) Hyperlipidemia: Code(s): E78.5 - Hyperlipidemia, unspecified Status: Chronic Assessment a
[2020-11-03] MEDS: FLUTICASONE PROPIONATE 0.05% NA SPR 16 GM BTL (*BKC) 1 SPRAY NASAL (20:50)
[2020-11-03] MEDS: METOPROLOL SUCCINATE EXT REL 50 MG TABCR PO (20:51)
[2020-11-03] MEDS: ATORVASTATIN 40 MG TABLET PO (20:51)
[2020-11-03] MEDS: WARFARIN (*PBKC) 3 MG TABLET PO (20:51)
[2020-11-03] MEDS: WARFARIN (*PBKC) 4 MG TABLET PO (20:52)
[2020-11-03] MEDS: LOSARTAN POTASSIUM 100 MG TABLET PO (20:52)
[2020-11-04] VITALS (26 sets, daily range): BP systolic 128–171; BP diastolic 51–81; PULSE 52–85; RESP 16–26; TEMP 36.2–36.6; O2SAT 94–100
--- NOTE | 2020-11-04 00:37 | PCRCNOTE ---
BiPAP found on and in use
[2020-11-04 05:51] LABS: Basophils Absolute Auto 0.1 K/mm3 (0.0-0.1); Basophils Percent Auto 0.7 % (0.2-1.2); Eosinophils Absolute Auto 0.5 K/mm3 (0-0.3); Eosinophils Percent Auto 6.2 % (0-4.4); Hematocrit 27.3 % (42.0-52.0); Hemoglobin 8.8 g/dL (14.0-18.0); Immature Granulocyte Absolute 0.08 K/mm3 (0.00-0.031); Lymphocytes Percent Auto 20.3 % (18.3-44.2); Mean Corpuscular HGB Conc 32.2 g/dl (32-36); Mean Corpuscular Hemoglobin 33.1 pg (26-34); Mean Corpuscular Volume 102.6 fl (80-100); Mean Platelet Volume 9.4 fl (7.4-10.4); Monocytes Absolute Auto 1.5 K/mm3 (0.1-0.6); Monocytes Percent Auto 18.2 % (2.6-8.5); Neutrophils Absolute Auto 4.5 K/mm3 (1.3-6.7); Neutrophils Percent Auto 53.6 % (45.5-73.1); Platelet Count Result 319 k/mm3 (150-375); Red Blood Count 2.66 M/mm3 (4.6-6.20); Red Cell Distribution Width 15.1 % (11.5-14.5); White Blood Count 8.4 K/mm3 (4.5-10.0)
[2020-11-04 06:07] LABS: INR 1.4; Prothrombin Time 17.1 Seconds (11.1-14.7)
[2020-11-04 06:08] LABS: Albumin Level 3.5 g/dL (3.5-5.1); Anion Gap 9 mmol/L (8-16); Blood Urea Nitrogen 20 mg/dL (9-20); Calcium 8.6 mg/dL (8.4-10.2); Carbon Dioxide 30 mmol/L (22-30); Chloride 94 mmol/L (98-107); Estimated CRCL calculation 17 ml/min; Estimated Glomerular Filt Rate 11; Glucose 123 mg/dL (75-110); Phosphorus 4.4 mg/dL (2.5-4.5); Potassium 4.4 mmol/L (3.4-5.0); Sodium 133 mmol/L (137-145)
[2020-11-04 06:09] LABS: Partial Thromboplastin Time 81.9 SECONDS (22.3-36.8)
--- NOTE | 2020-11-04 08:17 | PC.NURSE ---
pt c/o not feeling well and stated that his arm really hurts, he doesn't want the same dialysis nurse anymore because he had her the last 2 times and she is the one who keeps blowing his arm and causing him pain. Pt also c/o of feeling dizzy stating that he is not getting the correct amount of oxygen because the nasal cannula doesn't work well on him and the mask on the bipap is not the right size and they are only allowing him to use it at night.
[2020-11-04] MEDS: CYANOCOBALAMIN 1,000 MCG TABLET 1000 MCG PO (09:23)
[2020-11-04] MEDS: FUROSEMIDE 20 MG TABLET PO (09:23)
[2020-11-04] MEDS: PANTOPRAZOLE 40 MG TABLET PO (09:24)
[2020-11-04] MEDS: GABAPENTIN 100 MG CAPSULE 200 MG PO ×3 (09:24→21:26)
[2020-11-04] MEDS: CHOLECALCIFEROL 1,000 UNITS TABLET 5000 UNITS PO (09:24)
[2020-11-04] MEDS: METOPROLOL SUCCINATE EXT REL 25 MG TABCR PO (09:26)
--- NOTE | 2020-11-04 10:03 | PM.PNNEP ---
Progress Note: A&P Assessment and Plan (1) End stage renal disease: Code(s): N18.6 - End stage renal disease Status: Chronic Assessment and Plan: HD due tomorrow remove fluid as tolerated. (2) Fluid overload: Qualifiers: Hypervolemia type: unspecified Qualified Code(s): E87.70 - Fluid overload, unspecified Code(s): E87.70 - Fluid overload, unspecified Status: Acute Assessment and Plan: Resolved (3) Hypertension: Code(s): I10 - Essential (primary) hypertension Status: Acute Assessment and Plan: blood pressure under good control today (4) Pulmonary embolism: Qualifiers: Acute cor pulmonale presence: without acute cor pulmonale Chronicity: acute Pulmonary embolism type: unspecified Qualified Code(s): I26.99 - Other pulmonary embolism without acute cor pulmonale Code(s): I26.99 - Other pulmonary embolism without acute cor pulmonale Status: Acute Assessment and Plan: known history INR was subtherapeutic on admission INR 1.4 today. Coumadin adjustment per Dr. Ruiz Subjective Date/time seen: 11/04/20 10:03 Interval history: the patient has nausea. No diarrhea or vomiting. No fevers or belly pain. His BiPAP mask did not work last night. Apparently it had it tear in the mask lining. He did not sleep very well last night. Exam Narrative: Exam Narrative: General: WD/WN male in NAD Heart: normal S1 and S2; no rub Lungs: decreased at bases . Some coarseness to respirations. Abdomen: BS positive, soft and nontender Extremities: no edema Skin: No rash Or subcu nodules Objective Data Vital Signs Vital Signs: Vital Signs - 24 hr 11/03/20 11:30 11/03/20 12:00 11/03/20 13:15 Temperature Pulse Rate 64 62 64 Respiratory Rate Blood Pressure 144/59 H 122/56 L Pulse Oximetry 11/03/20 13:30 11/03/20 14:00 11/03/20 16:00 Temperature 36.7 C 36.4 C Pulse Rate 62 76 74 Respiratory Rate 18 18 Blood Pressure 150/56 H 104/81 Pulse Oximetry 91 11/03/20 16:17 11/03/20 18:00 11/03/20 20:00 Temperature 36.5 C Pulse Rate 73 67 Respiratory Rate 18 16 Blood Pressure 160/73 H Pulse Oximetry 92 98 97 11/03/20 20:51 11/03/20 20:56 11/03/20 22:05 Temperature 36.8 C Pulse Rate 74 67 Respiratory Rate 16 20 Blood Pressure 155/60 H Pulse Oximetry 97 11/04/20 00:00 11/04/20 01:02 11/04/20 03:38 Temperature 36.4 C L Pulse Rate 62 58 L Respiratory Rate 20 23 H Blood Pressure 128/51 L Pulse Oximetry 98 11/04/20 04:00 11/04/20 05:27 11/04/20 09:26 Temperature 36.2 C L Pulse Rate 55 L 57 L 61 Respiratory Rate 16 Blood Pressure 144/54 H Pulse Oximetry 100 Intake/Output Intake/Output: Intake & Output 11/01/20 11/02/20 11/03/20 11/04/20 23:59 23:59 23:59 23:59 Intake Total 1640 1770 2470 540 Balance 1640 1770 2470 540 Meds/Results Medications: Active Medications Generic Name Dose Route Start Last Admin Trade Name Freq PRN Reason Stop Dose Admin Amiodarone HCl 200 mg 10/30/20 09:00 11/03/20 08:11 Amiodarone Hcl 200 Mg Tablet PO 200 mg Q48HR LUDWIG Administration Atorvastatin Calcium 40 mg 10/29/20 21:00 11/03/20 20:51 Atorvastatin 40 Mg Tablet PO 40 mg HS LUDWIG Administration Bacitracin/Polymyxin B Sulfate 1 applic 10/31/20 09:06 10/31/20 13:37 Bacitracin/Polymyxin B Oint 15 Gm Tube TOPICAL 1 applic BID PRN Administration Itching Cyanocobalamin 1,000 mcg 10/29/20 13:05 11/04/20 09:23 Cyanocobalamin 1,000 Mcg Tablet PO 1,000 mcg DAILY LUDWIG Administration Epoetin Pablo-epbx 10,000 units 11/03/20 09:00 11/03/20 11:40 Epoetin Pablo-Epbx 10,000 Units/Ml Vial IV PUSH 10,000 units MOWEFR LUDWIG Administration Fluticasone Propionate 1 spray 10/31/20 21:00 11/03/20 20:50 Fluticasone Propionate 0.05% Na Spr 16 Gm Btl (*Bkc) NASAL 1 spray HS LUDWIG Administ
--- NOTE | 2020-11-04 10:12 | PCRCNOTE ---
Called to go to pts room because he said his bipap mask was too small. (He has been taking himself on and off v60.)The mask was appropriate fitting (under bottom lip, above chin). He was also wearing his NC which was at 3 liters, and the bipap of 30 % fio2, which is too high of a concentration for him, and unnecessary. I let him know he could wear one or the other. Pt preceded to take off his bipap mask and throw it at me. He was getting combative. I let him know not to throw that at me again, and proceeded to give him a different kind of mask, which goes under the nose and over the mouth. He was happy w/this when I left the room. He had no more questions at this time.
[2020-11-04] MEDS: HEPARIN SOD/D5W 100 UNITS/ML 25,000 UNITS/250 ML BAG 13 UNITS IV CONT (11:03)
[2020-11-04] MEDS: IPRATROPIUM BR 0.02% INH SOLN 0.5 MG/2.5 ML VIAL INHALATION ×3 (13:39→19:41)
--- NOTE | 2020-11-04 15:14 | PM.IMPN ---
Progress Note: A&P Assessment and Plan (1) Congestive heart failure: Code(s): I50.9 - Heart failure, unspecified Status: Acute Assessment and Plan: patient less likely has fluid overload. Patient needs dialysis. He typically has dialysis Sunday. The patient was initially on BiPAP but is now on 5 L per nasal cannula. Patient was given Lasix in the emergency room. Patient was unable to complete dialysis today because the site infiltrated. The patient was given a dose of Lasix when he 1st came to the emergency room. He is given another dose of Bumex by the store clerk checker Will repeat her his echocardiogram echo done on March/2020 shows EF 45-50% mildly increased left ventricular wall thickness, grade 3 diastolic dysfunction, apical inferior wall akinetic, apical septum apical lateral wall and apical anterior wall are hypokinetic, by apical cap is dyskinetic 11/01/20: Will continue current plan of care and treatment,will schedule dialysis. 11/04/20 15:14 11/02 patient is 70-year-old male with history of end-stage renal disease on hemodialysis on Sunday and Sunday, chronic respiratory failure on home oxygen 4.5 L per nasal cannula with history of chronic pulmonary emboli on Coumadin upon arrival patient INR is 1.1, and with complaint of shortness of breath suspected volume overload and patient had dialysis, currently patient states the cough is still persisting and been short of breath, patient states he has been taking his Coumadin as prescribed however his INR was 1.[address] Cardenas his store clerk checker and today increased Coumadin to 7 mg q.day will continue to monitor, CT scan of the chest showed persistent and chronic pulmonary emboli and pulmonary edema, will have PT OT evaluate the patient and further recommendation to follow. 11/03 today patient had a dialysis 2 L was removed states feeling little better, lungs sound congested, clinically stable, today patient INR is 1.3 is currently on warfarin 7 mg q.day and bridged with heparin, will continue to monitor goal is once the patient reached INR 2 and for 2 consecutive days will discharge the patient home. 11/04 Today patient was complaining shortness of breath, patient was given breathing treatment and that has helped, today patient INR is 1.4 and he was taking Coumadin 7 mg a day, will increase his 9 mg daily today patient being bridged with heparin and monitor, patient is scheduled for dialysis tomorrow (2) Respiratory failure: Code(s): J96.90 - Respiratory failure, unspecified, unspecified whether with hypoxia or hypercapnia Status: Acute Assessment and Plan: Patient initially was on a BiPAP machine he is back to 5 L now. He typically wears 4.5 L at home. Patient was given Lasix and was placed on the BiPAP initially which appeared to help. will continue BiPAP p.r.n. History of pulmonary embolism. CT of the chest negative for PE will continue current treatment. (3) End-stage renal disease on hemodialysis: Code(s): N18.6 - End stage renal disease; Z99.2 - Dependence on renal dialysis Status: Chronic Assessment and Plan: Patient typically have dialysis on Sunday. It was unable to have dialysis today because the site infiltrate. Try again tomorrow for dialysis. Patient's potassium is 5.4 will need dialysis today and monitor (4) Essential hypertension: Code(s): I10 - Essential (primary) hypertension Status: Chronic Assessment and Plan: The patient is on metoprolol, amiodarone, and losartan (5) Paroxysmal atrial fibrillation: Code(s): I48.0 - Paroxysmal atrial fibrillation Status: Chronic Assessment and Plan: the patient is on Coumadin but he has compliance issues at times. The patient is subtherapeutic with INR 1.1. I started the patient on heparin drip protocol as he has a history of pulmonary embolism and is in AFib. We will cont
--- NOTE | 2020-11-04 18:26 | PC.NURSE ---
pt's daughter came to the nurse's desk asking to talk to me; she asked what the status was with her dad as he was, in her opinion, incoherent and confused. She then informed me that he is a liar and constantly 'bullshitting' people and I know he is doing that with you, too ; she stated that he is a chain smoker and smokes the entire time he is not in the hospital including up to the point of his current admission. She also stated that he is noncompliant with his home meds as well as his oxygen therapy at home.
[2020-11-04] MEDS: traMADol HCL (*CRX) 50 MG TABLET PO (18:37)
[2020-11-04] MEDS: FUROSEMIDE INJ 40 MG/4 ML VIAL IV PUSH (20:50)
[2020-11-04] MEDS: LOSARTAN POTASSIUM 100 MG TABLET PO (21:25)
[2020-11-04] MEDS: METOPROLOL SUCCINATE EXT REL 50 MG TABCR PO (21:25)
[2020-11-04] MEDS: ATORVASTATIN 40 MG TABLET PO (21:26)
[2020-11-04] MEDS: FLUTICASONE PROPIONATE 0.05% NA SPR 16 GM BTL (*BKC) 1 SPRAY NASAL (21:43)
[2020-11-05] VITALS (19 sets, daily range): BP systolic 132–203; BP diastolic 50–91; PULSE 61–78; RESP 18–24; TEMP 36.1–37; O2SAT 93–100
[2020-11-05] MEDS: IPRATROPIUM BR 0.02% INH SOLN 0.5 MG/2.5 ML VIAL INHALATION (00:11)
[2020-11-05] MEDS: traMADol HCL (*CRX) 50 MG TABLET PO (00:26)
--- NOTE | 2020-11-05 00:29 | PCRCNOTE ---
Pt became short of breath after HFN tx. Will hold 0400 tx, RN is aware.
[2020-11-05 05:58] LABS: Partial Thromboplastin Time 58.1 SECONDS (22.3-36.8)
[2020-11-05] MEDS: HEPARIN SODIUM 5,000 UNITS/ML VIAL 3500 UNITS IV PUSH (06:58)
[2020-11-05] MEDS: HEPARIN SOD/D5W 100 UNITS/ML 25,000 UNITS/250 ML BAG 15 UNITS IV CONT (08:15)
[2020-11-05 09:38] LABS: INR 1.8; Prothrombin Time 20.2 Seconds (11.1-14.7)
[2020-11-05] MEDS: PHARMACIST COMMUNICATION ORDER 1 EACH XX (12:43)
--- NOTE | 2020-11-05 12:48 | PC.NURSE ---
Dr. Cardenas called and requested that I take the bipap machine to dialysis for pt to use as he is demanding use of the machine 20/11 stating that he is unable to breathe unless he uses the machine. Bipap machine was subsequently immediately taken to dialysis
--- NOTE | 2020-11-05 12:49 | PM.PNNEP ---
Progress Note: A&P Assessment and Plan (1) End stage renal disease: Code(s): N18.6 - End stage renal disease Status: Chronic Assessment and Plan: He had an abbreviated hemodialysis treatment today. Will get another treatment tomorrow as an outpatient. remove fluid as tolerated. (2) Fluid overload: Qualifiers: Hypervolemia type: unspecified Qualified Code(s): E87.70 - Fluid overload, unspecified Code(s): E87.70 - Fluid overload, unspecified Status: Acute Assessment and Plan: I wonder if he drink a lot of fluid yesterday. (3) Hypertension: Code(s): I10 - Essential (primary) hypertension Status: Acute Assessment and Plan: blood pressure Better today. It was high before he got the 2.5L off. (4) Pulmonary embolism: Qualifiers: Acute cor pulmonale presence: without acute cor pulmonale Chronicity: acute Pulmonary embolism type: unspecified Qualified Code(s): I26.99 - Other pulmonary embolism without acute cor pulmonale Code(s): I26.99 - Other pulmonary embolism without acute cor pulmonale Status: Acute Assessment and Plan: known history INR was subtherapeutic on admission INR 1.8 today. Coumadin adjustment per Dr. Ruiz Subjective Date/time seen: 11/05/20 12:49 Interval history: I saw the patient before he started dialysis. He was short of breath. He is asking for the BiPAP machine so that he can make it through the treatment. I agree that he is probably fluid overloaded. I called the nursing station asked them to bring up the BiPAP Machine. They did so about nursing home through his treatment. Unfortunately when the plug did in it trip diffuse and so the dialysis machine lost power. Then his access was lost and now he does not want to restart his dialysis. The patient has had some trouble with access every treatment almost as his fistula is very difficult to stick. Now he wants to sign out AMA. I talked at length with him about this. His INR is not therapeutic and so this risks stroke. He should really stay around for his heparin drip until his INR is therapeutic. Dialysis only got about 2.5L off. He is feeling a little bit better but I do not think it will make it through the weekend. He is going to go to [place] for an extra treatment tomorrow. Exam Narrative: Exam Narrative: General: WD/WN male in NAD Heart: normal S1 and S2; no rub Lungs: decreased at bases . Abdomen: BS positive, soft and nontender Extremities: no edema Skin: No rash Or subcu nodules Objective Data Vital Signs Vital Signs: Vital Signs - 24 hr 11/04/20 13:41 11/04/20 13:45 11/04/20 13:50 Temperature Pulse Rate 55 L 85 62 Respiratory Rate 22 H 26 H 22 H Blood Pressure Pulse Oximetry 99 11/04/20 14:00 11/04/20 16:00 11/04/20 16:08 Temperature 36.4 C L Pulse Rate 64 62 52 L Respiratory Rate 16 24 H Blood Pressure 143/66 H Pulse Oximetry 94 11/04/20 16:11 11/04/20 16:20 11/04/20 18:00 Temperature 36.4 C L Pulse Rate 52 L 61 68 Respiratory Rate 24 H 24 H 16 Blood Pressure 162/72 H Pulse Oximetry 99 98 11/04/20 19:41 11/04/20 19:47 11/04/20 19:51 Temperature Pulse Rate 66 64 67 Respiratory Rate 24 H 24 H 24 H Blood Pressure Pulse Oximetry 97 97 11/04/20 20:00 11/04/20 21:18 11/04/20 21:25 Temperature 36.6 C Pulse Rate 83 67 68 Respiratory Rate 24 H Blood Pressure 171/81 H Pulse Oximetry 97 11/05/20 00:00 11/05/20 00:12 11/05/20 01:51 Temperature 36.1 C L Pulse Rate 61 63 64 Respiratory Rate 23 H 24 H Blood Pressure 167/57 H Pulse Oximetry 95 100 11/05/20 03:23 11/05/20 04:00 11/05/20 05:45 Temperature 36.1 C L Pulse Rate 62 65 Respiratory Rate 24 H Blood Pressure 171/75 H Pulse Oximetry 95 99 11/05/20 08:00 11/05/20 08:12 11/05/20 10:05 Temperature 36.7 C Pulse Rate 68 76 Res
--- NOTE | 2020-11-05 13:33 | PCNWS ---
Weekly nutritional screen. Patient is tolerating current diet with adequate intake of 100-75% of meals. No weight loss reported. No nutritional needs at this time.
--- NOTE | 2020-11-05 13:34 | PC.NURSE ---
Addendum entered by Annia Smalls RN 11/05/20 13:46: The dialysis machine was never unplugged. The bipap machine apparently blew the fuse and knocked the power to the dialysis machine off. This triggered an alarm from the dialysis machine, which the dialysis nurse was unable to reset or make the machine restart. She called the physician and notified him of the machine's issue and mentioned that there was an air bubble in the line and that she was going to be unable to return his blood. The bipap machine was unplugged from that wall & re-plugged on the opposite wall while the HD machine continued to alarm. The nurse called the physician on the phone again and told him about the air bubble in the tubing and told him how much treatment had been completed & how much remained. She then explained to the patient that his treatment could not be completed because of the sizable air bubble would be a danger to him. He stated he needed that blood. She reiterated that the blood coudn't be returned because of the air in blood. I then unplugged the machine from the wall & the oxygen from the hook-up and returned the machine to his patient room. Original Note: Dr Cardenas ordered the pt's bipap machine to be brought to dialysis room so that pt could use it during HD treatment, so that he would be willing to complete his treatment. I took the machine to the dialysis room and explained to the HD nurse that the respiratory therapist would not be managing the mask while pt is on the other unit receiving treatment, as they had assessed that he was not needing to wear the mask all the time during the day, while sitting on the edge of the bed. He should be wearing oxygen during the day & wear the bipap at night. Pt yelled, That's because they're assholes. I explained to the patient that regardless of his opinion of the respiratory therapist, they were doing their job by assessing the patient's oxygen levels and blood gases to determine whether he was retaining carbon dioxide & they believed he should be wearing the mask only at night. The patient complained of being short of breath and I asked the patient, If you are short of breath, why are you yelling at me? The patient replied he was getting short of breath now. I told him I would set the machine up in the room and he would be able to apply the mask when he wished, the machine would be available for his use and he had been adjusting the settings on the machine and using the mask whenever he felt it necessary in the room. I hooked up the oxygen line and plugged in the bipap machine and immediately, the dialysis machine began beeping. The dialysis nurse said, Plug it back in. Plug it back in!
[2020-11-05] MEDS: amLODIPine BESYLATE 5 MG TABLET PO (14:06)
[2020-11-05] MEDS: AMIODARONE HCL 200 MG TABLET PO (14:07)
[2020-11-05] MEDS: FUROSEMIDE 20 MG TABLET PO (14:08)
[2020-11-05] MEDS: METOPROLOL SUCCINATE EXT REL 25 MG TABCR PO (14:08)
[2020-11-05] MEDS: GABAPENTIN 100 MG CAPSULE 200 MG PO (14:08)
[2020-11-05] MEDS: CYANOCOBALAMIN 1,000 MCG TABLET 1000 MCG PO (14:08)
[2020-11-05] MEDS: PANTOPRAZOLE 40 MG TABLET PO (14:08)
[2020-11-05] MEDS: CHOLECALCIFEROL 1,000 UNITS TABLET 5000 UNITS PO (14:09)
--- NOTE | 2020-11-05 14:40 | PCNSR ---
On 11/05/20, the student, [Marisol Trevino], provided care and completed [facility] documentation on this patient. I have reviewed the student's documentation and agree with the findings.
--- NOTE | 2020-11-05 14:48 | PC.NURSE ---
Patient notified of risks of leaving AMA. [Joseph ] notified. Follow up instructions given to patient. Patient signed AMA form.
--- NOTE | 2020-11-05 16:58 | PM.DS ---
DS: Admitting Diagnosis Admitting Diagnosis Admitting Diagnosis: Chief Complaint: Shortness of breath DS: Summary Hospital Course Reason for hospitalization: This is a 70-year-old who has end-stage renal disease and typically goes on Sunday. The patient has been short of breath any chronically wears oxygen at 4.5 L per nasal cannula at home. He also has sleep apnea and states that he has been wearing his CPAP machine. The patient stated that he has been having some wheezing any called his primary care doctor who ordered him steroids but they do not appear to be helping. The patient's last dialysis was on Sunday. The patient did not make it to dialysis today. He got in his car and was short of breath so he called 911 from his car. His oxygen level was found to be in the 80s. Patient was initially placed on a BiPAP. The patient's white count is 13.9 but he had been on steroids. The patient is chronically anticoagulated due to his AFib. His INR today was 1.1. chest x-ray was read as 1. Diffuse bilateral lung disease most likely congestive heart failure related mild to moderate pulmonary edema with differential including pneumonia. 2. Small left pleural effusion. 3. Cardiomegaly. patient was given Lasix, nitro, morphine, Zofran and IV fluids. Patient was taken dialysis however his AV fistula developed a hematoma. The site infiltrated he has edema to his right upper arm and around his right elbow. Dialysis was not able to be completed at this time. Patient is no longer on a BiPAP and he is on 5 L at this time. The patient is admitted to inpatient services on the date of service of 10/29/2020 Chief Complaint: Shortness of breath Hospital Course: patient less likely has fluid overload. Patient needs dialysis. He typically has dialysis Sunday. The patient was initially on BiPAP but is now on 5 L per nasal cannula. Patient was given Lasix in the emergency room. Patient was unable to complete dialysis today because the site infiltrated. The patient was given a dose of Lasix when he 1st came to the emergency room. He is given another dose of Bumex by the military technology specialist Will repeat her his echocardiogram echo done on March/2020 shows EF 45-50% mildly increased left ventricular wall thickness, grade 3 diastolic dysfunction, apical inferior wall akinetic, apical septum apical lateral wall and apical anterior wall are hypokinetic, by apical cap is dyskinetic 11/01/20: Will continue current plan of care and treatment,will schedule dialysis. 11/04/20 15:14 11/02 patient is 70-year-old male with history of end-stage renal disease on hemodialysis on Sunday and Sunday, chronic respiratory failure on home oxygen 4.5 L per nasal cannula with history of chronic pulmonary emboli on Coumadin upon arrival patient INR is 1.1, and with complaint of shortness of breath suspected volume overload and patient had dialysis, currently patient states the cough is still persisting and been short of breath, patient states he has been taking his Coumadin as prescribed however his INR was 1.[address] Cardenas his military technology specialist and today increased Coumadin to 7 mg q.day will continue to monitor, CT scan of the chest showed persistent and chronic pulmonary emboli and pulmonary edema, will have PT OT evaluate the patient and further recommendation to follow. 11/03 today patient had a dialysis 2 L was removed states feeling little better, lungs sound congested, clinically stable, today patient INR is 1.3 is currently on warfarin 7 mg q.day and bridged with heparin, will continue to monitor goal is once the patient reached INR 2 and for 2 consecutive days will discharge the patient home. 11/04 Today patient was complaining shortness of breath, patient was given breathing treatment and that has helped, today patient INR is 1.4 and he was taking Coumadin 7 mg a day, will increase his 9 mg daily today patient being bridged with
== END 2020-11-05 14:48 | disposition left against medical advice (07) | DRG 640 ==
LOC: ANHED 07:54 → ANHIMU 08:33 → ANH2MED 11-01 07:08 → ANHIMU 11-09 09:33
PROVIDERS: Internal Medicine; Internal Medicine Nephrology; Nurse Practitioner; Admitting Provider Internal Medicine; Emergency Provider Emergency Medicine; PCP Family Medicine; Visit Provider Family Medicine
DX: E87.70 Fluid overload, unspecified (principal); N18.6 End stage renal disease; I26.99 Other pulmonary embolism without acute cor pulmonale; I13.2 Hypertensive heart and chronic kidney disease with heart failure and with stage 5 chronic kidney disease, or end stage renal disease; T82.49XA Other complication of vascular dialysis catheter, initial encounter; J96.11 Chronic respiratory failure with hypoxia; I27.20 Pulmonary hypertension, unspecified; I50.9 Heart failure, unspecified; D63.1 Anemia in chronic kidney disease; R79.1 Abnormal coagulation profile; G47.33 Obstructive sleep apnea (adult) (pediatric); I25.10 Atherosclerotic heart disease of native coronary artery without angina pectoris; I48.0 Paroxysmal atrial fibrillation; N25.0 Renal osteodystrophy; F41.8 Other specified anxiety disorders; E78.5 Hyperlipidemia, unspecified; I25.2 Old myocardial infarction; Z99.2 Dependence on renal dialysis; Z79.01 Long term (current) use of anticoagulants; Z79.899 Other long term (current) drug therapy; Z86.718 Personal history of other venous thrombosis and embolism; Z86.73 Personal history of transient ischemic attack (TIA), and cerebral infarction without residual deficits; Z87.891 Personal history of nicotine dependence; Z99.81 Dependence on supplemental oxygen; Z99.89 Dependence on other enabling machines and devices
CPT/HCPCS: 36415; 36600; 71045; 71275; 76882; 80048; 80053; 80069; 80074; 82805; 82948; 83735; 84484; 85025; 85610; 85730; 86706; 87040; 93005; 93306; 94003; 94640; 96374; 96375; 99285; A9270; G0257; G0378; J1644; J1940; J2270; J2405; J7030; Q5106; Q9967

== ENCOUNTER 2021-06-08 10:08 | Emergency (ER) | payer MEDICARE, SELFPAY ==
--- NOTE | 2021-06-08 10:25 | PC.NURSE ---
pt ambulatory to intake desk after being brought in by ems. pt states Im not waiting here in the waiting room. I did not even need to come here This RN told pt the importance of being seen and that if he changes his mind he can always come back to be seen. Pt's IV removed with catheter intact. pt ambulatory out of ER doors.
== END 2021-06-08 10:30 | disposition left against medical advice (07) ==
LOC: ANHED 10:32
PROVIDERS: PCP Family Medicine
DX: Z53.21 Procedure and treatment not carried out due to patient leaving prior to being seen by health care provider (principal)
CPT/HCPCS: 99199

== ENCOUNTER 2021-09-20 11:20 | Emergency (ER) | payer MEDICARE, SELFPAY ==
--- NOTE | ~2021-09-20 | XR_ITS ---
EXAMINATION: XR chest 2V DATE: 09/20/2021 15:01 INDICATION: Shortness of breath. Lower limb edema. TECHNIQUE: frontal view of the chest was obtained. COMPARISON: Chest radiograph dated 10/29/[address] dated 10/31/2020 FINDINGS: Basilar predominant opacities in the bilateral mid and lower lung zones consistent with small bilater al pleural effusions with associated atelectasis, pneumonia, pulmonary edema or some combination ther eof. No pneumothorax. Cardiomegaly. Median sternotomy wires, ostial markers and mediastinal surgical clips consistent with prior coronary artery bypass grafting. Atherosclerotic aorta. Vascular stenting extending from the right axilla into the partially visualized right upper arm. IMPRESSION: 1. Opacities in bilateral mid and lower lung zones consistent with small bilateral pleural effusions with associated atelectasis, pulmonary edema, pneumonia or some combination thereof. 2. Cardiomegaly. Reviewed, dictated and finalized at location B. IMPRESSION: 1. Opacities in bilateral mid and lower lung zones consistent with small bilate ral pleural effusions with associated atelectasis, pulmonary edema, pneumonia o r some combination thereof. 2. Cardiomegaly.
--- NOTE | ~2021-09-20 | US_ITS ---
EXAMINATION:US venous doppler LE BI INDICATION:Leg pain and swelling TECHNIQUE: Multiple grayscale, color flow and Doppler images of the right and left lower extremity de ep venous systems were obtained and reviewed. COMPARISON:01/22/2020 FINDINGS: The common femoral, superficial femoral and popliteal veins demonstrate normal respiratory variation, augmentation and compressibility. Color flow is also seen within the posterior tibial, pe roneal, greater saphenous and profunda veins. There is reflux in the right soleal is vein. IMPRESSION: 1: No lower extremity deep venous thrombosis. Reviewed, dictated and finalized at location A.
[2021-09-20 11:30] VITALS: BP 121/75; PULSE 89; RESP 34; TEMP 36.6; O2SAT 88
[2021-09-20 11:53] VITALS: O2SAT 95
[2021-09-20 11:54] VITALS: RESP 22
[2021-09-20 12:08] VITALS: BP 119/92; PULSE 92; RESP 25
--- NOTE | 2021-09-20 13:27 | ECG_ITS ---
Measurements Intervals [place] Rate: 89 P: DC: 0 QRS: 74 QRSD: 113 T: 180 QT: 410 QTc: 500 Interpretive Statements ATRIAL FIBRILLATION INTRAVENTRICULAR CONDUCTION DELAY LOW QRS VOLTAGE IN LIMB LEADS BORDERLINE R WAVE PROGRESSION, ANTERIOR LEADS BORDERLINE ST-T WAVE ABNORMALITY- INF/LAT LEADS BASELINE ARTIFACT- I, III, AVR, AVL, AVF ABNORMAL ECG Electronically Signed On 09-20-2021 14:44:45 CDT by Cristhian Crane D.O.
--- NOTE | 2021-09-20 13:35 | PC.NURSE ---
wound center aware of consult
--- NOTE | 2021-09-20 13:36 | PC.NURSE ---
wound clinic called at [phone]
--- NOTE | 2021-09-20 13:37 | ED.EXTPRO ---
HPI - Extremity Problem General Chief complaint: Extremity Problem,Nontraumatic Stated complaint: leg pain Time Seen by Provider: 09/20/21 12:29 History of Present Illness HPI Narrative: Patient is 70 years old white male referred to our emergency room by the wound care nurse who was taking care of him at the rehab center because of pain of the feet bilaterally which started 5 days ago. They are concerned about the possibility of deep vein thrombosis. He denies any fever, chills, nausea, vomiting, chest pain, shortness of breath. History of dialysis, last 1 was yesterday, hypertension, hyperlipidemia, CABG, stroke. Related Data Home Medications Medication Instructions Recorded Confirmed gabapentin 100 mg capsule 200 mg PO TID 01/21/20 10/29/20 (Neurontin) amiodarone 200 mg tablet 200 mg PO EVERY OTHER DAY 04/24/20 10/29/20 atorvastatin 40 mg tablet 40 mg PO HS 04/24/20 10/29/20 cyanocobalamin (vitamin B-12) 1,000 mcg PO DAILY 04/24/20 10/29/20 1,000 mcg tablet fluticasone propionate 50 1 spray intranasal DAILY 04/24/20 10/29/20 mcg/actuation nasal spray,suspension levalbuterol tartrate 45 2 puff inhalation Q6H PRN 04/24/20 10/29/20 mcg/actuation aerosol inhaler Shortness Of Breath Or Wheezing losartan 50 mg tablet 100 mg PO QPM 04/24/20 10/29/20 metoprolol succinate 50 mg 50 mg PO QPM 04/24/20 10/29/20 tablet,extended release 24 hr tramadol 50 mg tablet 50 mg PO Q6H PRN Pain 04/24/20 10/29/20 cholecalciferol (vitamin D3) 125 125 mcg PO DAILY 09/20/20 10/29/20 mcg (5,000 unit) tablet coenzyme Q10 200 mg tablet 200 mg PO DAILY 09/20/20 10/29/20 metoprolol succinate 25 mg capsule 25 mg PO QAM 09/20/20 10/29/20 sprinkle, ext. release 24 hr pantoprazole 40 mg tablet,delayed 40 mg PO QAM 09/20/20 10/29/20 release sucroferric oxyhydroxide 500 mg 500 mg PO TIDWM 09/20/20 10/29/20 chewable tablet warfarin 3 mg tablet 4 mg PO DAILY 09/20/20 10/29/20 Allergies Allergy/AdvReac Type Severity Reaction Status Date / Time atorvastatin Allergy Unknown Rash Verified 09/20/21 11:58 morphine Allergy Unknown Verified 09/20/21 11:58 Penicillins Allergy Unknown Verified 09/20/21 11:58 Review of Systems Review of Systems: All systems reviewed & are unremarkable except as noted in HPI and below PMFSH Past Medical History Medical History AAA (abdominal aortic aneurysm) Stable mid abdominal aortic saccular aneurysm measuring 4.2 cm on imaging dated 01/21/2020 Bacterial infection due to Proteus mirabilis (~10/2018) Secondary to infected dialysis catheter. C. difficile diarrhea 04/2018 CAD (coronary artery disease) Cardiac catheterization in March 2018 doing showed total occlusion of the obtuse and left main with severe disease in the LAD in which she was transferred to [facility] for urgent 2 vessel CABG. 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 Chronic anemia Chronic respiratory failure with hypoxia, on home oxygen therapy On 2 L nasal cannula. Congestive heart failure Echo in Dec 2019 showed EF 55-60%, Grade 3 DD and HK apical septum and inferoapical beyer. Moderate Pulm HTN (48) Coronary artery disease Cardiac catheterization in March 2018 doing showed total occlusion of the obtuse and left main with severe disease in the LAD in which she was transferred to [facility] for urgent 2 vessel CABG. Current use of [facility] anticoagulation On warfarin for stroke prophylaxis given atrial fibrillation. CVA (cerebral vascular accident) Post CABG with residual right-sided weakness Depression with anxiety Depression with anxiety DVT (deep venous thrombosis) End stage renal disease HD M-W-; Dialysis since 03/2018 Erythropoietin deficiency anemia Essential hypertension Hemodialysis access site with arteriovenous graft Right forearm placed in early 2018; right upper arm fistula 2018 History of diabetes mellitus
[2021-09-20 13:58] LABS: Basophils Absolute Auto 0.1 K/mm3 (0.0-0.1); Basophils Percent Auto 0.7 % (0.2-1.2); Eosinophils Absolute Auto 0.4 K/mm3 (0-0.3); Eosinophils Percent Auto 4.3 % (0-4.4); Hematocrit 30.3 % (42.0-52.0); Hemoglobin 9.8 g/dL (14.0-18.0); Immature Granulocyte Absolute 0.03 K/mm3 (0.00-0.031); Immature Granulocyte Percent A 0.3 % (0-0.5); Lymphocytes Absolute Auto 1.05 K/mm3 (0.9-3.2); Lymphocytes Percent Auto 11.9 % (18.3-44.2); Mean Corpuscular HGB Conc 32.3 g/dl (32-36); Mean Corpuscular Hemoglobin 32.7 pg (26-34); Mean Platelet Volume 8.4 fl (7.4-10.4); Monocytes Absolute Auto 1.3 K/mm3 (0.1-0.6); Neutrophils Percent Auto 67.8 % (45.5-73.1); Nucleated Red Blood Cells Perc 0.2 % (0.0-0.2); Platelet Count Result 344 k/mm3 (150-375); Red Cell Distribution Width 18.3 % (11.5-14.5); White Blood Count 8.9 K/mm3 (4.5-10.0)
[2021-09-20 14:09] LABS: INR 2.1
[2021-09-20 14:10] LABS: Alanine Aminotransferase 27 U/L (6-50); Albumin Level 3.4 g/dL (3.5-5.1); Alkaline Phosphatase 175 U/L (38-126); Anion Gap 10 mmol/L (8-16); Aspartate Amino Transferase 29 U/L (17-59); Bilirubin,Total 0.8 mg/dL (0.2-1.3); Blood Urea Nitrogen 20 mg/dL (9-20); Calcium 8.3 mg/dL (8.4-10.2); Carbon Dioxide 30 mmol/L (22-30); Chloride 89 mmol/L (98-107); Estimated CRCL calculation 17 ml/min; Estimated Glomerular Filt Rate 12; Glucose 123 mg/dL (65-110); Potassium 4.7 mmol/L (3.4-5.0); Sodium 129 mmol/L (137-145)
[2021-09-20] MEDS: ONDANSETRON INJ 4 MG/2 ML VIAL IV PUSH (14:17)
[2021-09-20] MEDS: HYDROmorphone HCL INJ (*CRX) 1 MG/ML SYR 0.5 MG IV PUSH (14:17)
--- NOTE | 2021-09-20 15:29 | PC.NURSE ---
attempted to call [facility] to give discharge report. unable to contact caregiver as they will not answer
[2021-09-20 15:30] VITALS: PULSE 91; RESP 20; O2SAT 98
--- NOTE | 2021-09-20 15:48 | PC.NURSE ---
patient being transported back to [place] by EMS around 1630, called for renal diet at this time
== END 2021-09-20 16:46 ==
PROVIDERS: Emergency Provider Emergency Medicine; PCP Family Medicine
DX: G62.9 Polyneuropathy, unspecified (principal); I25.10 Atherosclerotic heart disease of native coronary artery without angina pectoris; I69.951 Hemiplegia and hemiparesis following unspecified cerebrovascular disease affecting right dominant side; D64.9 Anemia, unspecified; J96.11 Chronic respiratory failure with hypoxia; Z99.81 Dependence on supplemental oxygen; I50.9 Heart failure, unspecified; I11.0 Hypertensive heart disease with heart failure; E78.5 Hyperlipidemia, unspecified; I25.5 Ischemic cardiomyopathy; G47.33 Obstructive sleep apnea (adult) (pediatric); I48.0 Paroxysmal atrial fibrillation; N25.0 Renal osteodystrophy; I25.2 Old myocardial infarction; Z99.2 Dependence on renal dialysis; Z86.14 Personal history of Methicillin resistant Staphylococcus aureus infection; Z86.711 Personal history of pulmonary embolism; Z86.718 Personal history of other venous thrombosis and embolism; Z95.1 Presence of aortocoronary bypass graft; Z79.01 Long term (current) use of anticoagulants; Z87.891 Personal history of nicotine dependence; I45.9 Conduction disorder, unspecified; R94.31 Abnormal electrocardiogram [ECG] [EKG]
CPT/HCPCS: 36415; 71046; 80053; 85025; 85610; 87040; 93005; 93970; 96374; 96375; 99284; J1170; J2405

== ENCOUNTER 2021-09-23 10:01 | Observation (INO) | payer OTHER, MEDICARE, SELFPAY ==
[2021-09-23] VITALS (13 sets, daily range): BP systolic 99–128; BP diastolic 66–95; PULSE 85–106; RESP 11–20; TEMP 36.1–36.6; O2SAT 92–98; BMI 28.5
--- NOTE | ~2021-09-23 | XR_ITS ---
EXAMINATION: XR chest 1V portable DATE: 09/23/2021 10:48 INDICATION: Syncope. TECHNIQUE: A single frontal view of the chest was obtained. COMPARISON: Chest 2 views 09/20/2021, chest CT 10/31/2020 FINDINGS: There are moderate-sized pleural effusions. There are airspace and interstitial opacities i n all lung zones bilaterally with a mid and lower lung zone predominance. No pneumothorax. Cardiomega ly is noted. Median sternotomy wires are noted. There is a vascular stent in right upper arm. IMPRESSION: 1. Diffuse lung disease, consistent with pulmonary edema versus pneumonia. 2. Moderate-sized pleural effusions. 3. Cardiomegaly. Reviewed, dictated and finalized at location A.
--- NOTE | 2021-09-23 10:37 | ECG_ITS ---
Measurements Intervals [place] Rate: 95 P: [place]: 0 QRS: 29 QRSD: 109 T: 161 QT: 395 QTc: 497 Interpretive Statements ATRIAL FIBRILLATION LOW QRS VOLTAGE IN LIMB LEADS BORDERLINE R WAVE PROGRESSION, ANTERIOR LEADS BORDERLINE ST-T WAVE ABNORMALITY- INF/HIGH LAT LEADS BASELINE ARTIFACT- I, II, III, AVR, AVL, AVF, V1 ABNORMAL ECG Electronically Signed On 09-23-2021 17:11:04 CDT by Cristhian Crane D.O.
--- NOTE | 2021-09-23 10:37 | ED.DIZZY ---
HPI - Dizziness General Chief Complaint: Syncope Stated Complaint: ams Time Seen by Provider: 09/23/21 10:36 Source: patient, EMS and RN notes reviewed Mode of arrival: EMS History of Present Illness HPI Narrative: Patient is 70 years old white male was in the middle of dialysis and suddenly became unresponsive then become confused. Baseline is awake, alert and oriented x4, currently patient feeling okay and would like to eat. History of defibrillator, dialysis, diabetes, hypertension, CHF, pulmonary embolism, paroxysmal atrial fibrillation. Patient denies any symptoms prior to syncope or after syncope. Also he denies any fever, chills, nausea, vomiting, abdominal pain, chest pain, shortness of breath or headache Related Data Home Medications Medication Instructions Recorded Confirmed gabapentin 100 mg capsule 200 mg PO TID 01/21/20 10/29/20 (Neurontin) amiodarone 200 mg tablet 200 mg PO EVERY OTHER DAY 04/24/20 10/29/20 atorvastatin 40 mg tablet 40 mg PO HS 04/24/20 10/29/20 cyanocobalamin (vitamin B-12) 1,000 mcg PO DAILY 04/24/20 10/29/20 1,000 mcg tablet fluticasone propionate 50 1 spray intranasal DAILY 04/24/20 10/29/20 mcg/actuation nasal spray,suspension levalbuterol tartrate 45 2 puff inhalation Q6H PRN 04/24/20 10/29/20 mcg/actuation aerosol inhaler Shortness Of Breath Or Wheezing losartan 50 mg tablet 100 mg PO QPM 04/24/20 10/29/20 metoprolol succinate 50 mg 50 mg PO QPM 04/24/20 10/29/20 tablet,extended release 24 hr tramadol 50 mg tablet 50 mg PO Q6H PRN Pain 04/24/20 10/29/20 cholecalciferol (vitamin D3) 125 125 mcg PO DAILY 09/20/20 10/29/20 mcg (5,000 unit) tablet coenzyme Q10 200 mg tablet 200 mg PO DAILY 09/20/20 10/29/20 metoprolol succinate 25 mg capsule 25 mg PO QAM 09/20/20 10/29/20 sprinkle, ext. release 24 hr pantoprazole 40 mg tablet,delayed 40 mg PO QAM 09/20/20 10/29/20 release sucroferric oxyhydroxide 500 mg 500 mg PO TIDWM 09/20/20 10/29/20 chewable tablet warfarin 3 mg tablet 4 mg PO DAILY 09/20/20 10/29/20 Allergies Allergy/AdvReac Type Severity Reaction Status Date / Time atorvastatin Allergy Unknown Rash Verified 09/20/21 11:58 morphine Allergy Unknown Verified 09/20/21 11:58 Penicillins Allergy Unknown Verified 09/20/21 11:58 Review of Systems Review of Systems: All systems reviewed & are unremarkable except as noted in HPI and below PMFSH Past Medical History Medical History AAA (abdominal aortic aneurysm) Stable mid abdominal aortic saccular aneurysm measuring 4.2 cm on imaging dated 01/21/2020 Bacterial infection due to Proteus mirabilis (~10/2018) Secondary to infected dialysis catheter. C. difficile diarrhea 04/2018 CAD (coronary artery disease) Cardiac catheterization in March 2018 doing showed total occlusion of the obtuse and left main with severe disease in the LAD in which she was transferred to [facility] for urgent 2 vessel CABG. 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 Chronic anemia Chronic respiratory failure with hypoxia, on home oxygen therapy On 2 L nasal cannula. Congestive heart failure Echo in Dec 2019 showed EF 55-60%, Grade 3 DD and HK apical septum and inferoapical beyer. Moderate Pulm HTN (48) Coronary artery disease Cardiac catheterization in March 2018 doing showed total occlusion of the obtuse and left main with severe disease in the LAD in which she was transferred to [facility] for urgent 2 vessel CABG. Current use of long term care social worker anticoagulation On warfarin for stroke prophylaxis given atrial fibrillation. CVA (cerebral vascular accident) Post CABG with residual right-sided weakness Depression with anxiety Depression with anxiety DVT (deep venous thrombosis) End stage renal disease HD M-W-; Dialysis since 03/2018 Erythropoietin deficiency anemia Essential hypertension Hemodialysis access site with arteriovenous
[2021-09-23 10:58] LABS: Basophils Percent Auto 0.4 % (0.2-1.2); Eosinophils Absolute Auto 0.3 K/mm3 (0-0.3); Eosinophils Percent Auto 2.5 % (0-4.4); Hematocrit 29.7 % (42.0-52.0); Immature Granulocyte Absolute 0.05 K/mm3 (0.00-0.031); Immature Granulocyte Percent A 0.5 % (0-0.5); Lymphocytes Absolute Auto 0.84 K/mm3 (0.9-3.2); Lymphocytes Percent Auto 8.5 % (18.3-44.2); Mean Corpuscular HGB Conc 33.7 g/dl (32-36); Mean Platelet Volume 8.5 fl (7.4-10.4); Monocytes Percent Auto 10.5 % (2.6-8.5); Neutrophils Absolute Auto 7.6 K/mm3 (1.3-6.7); Neutrophils Percent Auto 77.6 % (45.5-73.1); Platelet Count Result 350 k/mm3 (150-375); Red Blood Count 3.03 M/mm3 (4.6-6.20); Red Cell Distribution Width 18.3 % (11.5-14.5); White Blood Count 9.8 K/mm3 (4.5-10.0)
[2021-09-23 11:15] LABS: Alanine Aminotransferase 26 U/L (6-50); Albumin Level 3.5 g/dL (3.5-5.1); Alkaline Phosphatase 185 U/L (38-126); Anion Gap 10 mmol/L (8-16); Aspartate Amino Transferase 31 U/L (17-59); Bilirubin,Total 1.1 mg/dL (0.2-1.3); Blood Urea Nitrogen 16 mg/dL (9-20); Calcium 8.4 mg/dL (8.4-10.2); Carbon Dioxide 32 mmol/L (22-30); Chloride 88 mmol/L (98-107); Estimated CRCL calculation 17 ml/min; Estimated Glomerular Filt Rate 17; Glucose 139 mg/dL (65-110); Magnesium 1.9 mg/dL (1.6-2.3); Potassium 4.1 mmol/L (3.4-5.0); Sodium 130 mmol/L (137-145)
[2021-09-23 11:27] LABS: NT Pro B Type Natriuretic Pept > 35000 pg/mL (5-100); Troponin I 0.034 ng/mL (0.000-0.034)
[2021-09-23 11:49] LABS: INR 1.9; Prothrombin Time 20.9 Seconds (11.1-14.7)
[2021-09-23 11:50] LABS: Partial Thromboplastin Time 53.3 SECONDS (22.3-36.8)
[2021-09-23 14:33] LABS: SARS-CoV-2 RNA PCR Negative
--- NOTE | 2021-09-23 15:51 | PC.NURSE ---
PT in diaylisis.
[2021-09-23 17:16] LABS: Glucose Point of Care 134 mg/dl (65-105)
--- NOTE | 2021-09-23 17:59 | PM.IMHP ---
H&P: HPI History of Present Illness Date/Time: Patient was placed observation status for expected length of stay less than 23 hours for management, will plan to re-evaluate tomorrow for improvement. 09/23/21 17:59 Chief Complaint: Syncopal episode Narrative: Mr. Saleh is a 70-year-old gentleman who presented emergency room with syncopal episode at dialysis. At this point time patient is somewhat lethargic and states he cannot recall the whole episode. Patient states he does not recall having any chest pain, shortness of breath, lightheadedness, or dizziness. Patient states he was wearing LifeVest time and did not feel any defibrillation from LifeVest. Patient states he is unable to give any type of history of what occurred because he does not really recall the event. Patient denies any recent fever, chills, nausea, vomiting, abdominal pain, constipation, or diarrhea. Patient denies any blurred vision, double vision, or headache. Patient has a known history of end-stage renal disease on hemodialysis Sunday, Sunday, and Sunday. Patient does have a known history of congestive heart failure, and patient cannot tell me when the LifeVest was placed. I am unable to find in previous records when LifeVest was placed. Patient also has a known history of atrial fibrillation, pulmonary embolism, end-stage renal disease, and chronic anticoagulation for his atrial fibrillation and pulmonary embolism. Review of Systems Review of Systems: A 12 point review of systems was completed patient all pertinent positive and negative per HPI the remainder are unremarkable. [facility] [place] Past Medical History Medical History AAA (abdominal aortic aneurysm) Stable mid abdominal aortic saccular aneurysm measuring 4.2 cm on imaging dated 01/21/2020 Bacterial infection due to Proteus mirabilis (~10/2018) Secondary to infected dialysis catheter. C. difficile diarrhea 04/2018 CAD (coronary artery disease) Cardiac catheterization in March 2018 doing showed total occlusion of the obtuse and left main with severe disease in the LAD in which she was transferred to [facility] for urgent 2 vessel CABG. 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 Chronic anemia Chronic respiratory failure with hypoxia, on home oxygen therapy On 2 L nasal cannula. Congestive heart failure Echo in Dec 2019 showed EF 55-60%, Grade 3 DD and HK apical septum and inferoapical beyer. Moderate Pulm HTN (48) Coronary artery disease Cardiac catheterization in March 2018 doing showed total occlusion of the obtuse and left main with severe disease in the LAD in which she was transferred to [facility] for urgent 2 vessel CABG. Current use of fdc anticoagulation On warfarin for stroke prophylaxis given atrial fibrillation. CVA (cerebral vascular accident) Post CABG with residual right-sided weakness Depression with anxiety Depression with anxiety DVT (deep venous thrombosis) End stage renal disease HD -W-; Dialysis since 03/2018 Erythropoietin deficiency anemia Essential hypertension Hemodialysis access site with arteriovenous graft Right forearm placed in early 2018; right upper arm fistula 2018 History of diabetes mellitus No longer on medication. History of Pseudomonas pneumonia Hyperlipidemia Hypertension Ischemic cardiomyopathy Ejection fraction as low as 35% with improvement on recent echocardiogram as above. 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 Pulmonary embolism Small RUL and RLL by CT in Dec 2019 Renal osteodystrophy STEMI (ST elevation myocardial infarction) 03/2018 Surgical History Surgical History History of appendectomy History of cardia
[2021-09-23 18:42] LABS: INR 1.9
[2021-09-23 18:52] LABS: Troponin I 0.021 ng/mL (0.000-0.034)
[2021-09-23 21:55] LABS: Troponin I 0.022 ng/mL (0.000-0.034)
[2021-09-23] MEDS: NORTRIPTYLINE HCL 25 MG CAPSULE PO (22:00)
[2021-09-23] MEDS: GABAPENTIN 300 MG CAPSULE 600 MG PO (22:00)
[2021-09-23] MEDS: ROSUVASTATIN 10 MG TABLET 20 MG PO (22:00)
[2021-09-23] MEDS: METOPROLOL TARTRATE 50 MG TAB 100 MG PO (22:00)
[2021-09-24] VITALS (24 sets, daily range): BP systolic 100–144; BP diastolic 46–83; PULSE 78–109; RESP 18–24; TEMP 36.4–37; O2SAT 92–98
--- NOTE | 2021-09-24 | ECHO_ITS ---
Patient Info Name: David Saleh Age: 70 years : 1950 Gender: Male Ht: 74 in Wt: 229 lbs BSA: 2.35 m2 HR: 98 bpm BP: 139 / 72 mmHg Heart Rhythm: Atrial Fibrillation Technical Quality: Good Exam Date: 09/24/2021 1:53 PM Exam Location: [facility] Card Pulmonary Patient Status: Inpatient Admit Date: 09/23/2021 Staff Ordering Physician: Janelle Garcia MD Attending Provider: Saji Ruiz MD Referring Physician: Radha DUMONT; Exam Type: CA echo doppler color flow Study Info Complete two-dimensional, color flow and Doppler transthoracic echocardiogram is performed. Summary 1. Complete two-dimensional, color flow and Doppler transthoracic echocardiogram is performed. 2. Left ventricular chamber dimension is normal. 3. Left ventricular systolic function is moderately reduced, estimated at 30-35%. 4. There is mildly increased left ventricular wall thickness. 5. Left atrial chamber dimension is severely enlarged. 6. There is moderate mitral valve regurgitation. 7. There is moderate to severe tricuspid valve regurgitation. 8. Mild pulmonary hypertension, estimated pulmonary arterial systolic pressure is 36 mmHg. Left Ventricle Left ventricular chamber dimension is normal. Left ventricular systolic function is moderately reduced, estimated at 30-35%. There is mildly increased left ventricular wall thickness. The left ventricular diastolic function is indeterminate. Right Ventricle Right ventricular chamber dimension is normal. Right ventricular systolic function is reduced. Left Atria Left atrial chamber dimension is severely enlarged. Right Atria Right atrial chamber dimension is mildly enlarged. Aortic Valve The aortic valve is not well visualized. There is no aortic valve stenosis. There is no aortic valve regurgitation. Pulmonic Valve The pulmonic valve is not well visualized. There is mild pulmonic regurgitation. Mitral Valve The mitral valve has thickened leaflets and calcified leaflets. There is mild mitral valve stenosis. There is moderate mitral valve regurgitation. The mitral valve annulus is severely calcified. Tricuspid Valve The tricuspid valve leaflets are normal. There is moderate to severe tricuspid valve regurgitation. Mild pulmonary hypertension, estimated pulmonary arterial systolic pressure is 36 mmHg. Pericardium/Pleural The pericardium appears normal. There is no pericardial effusion. Left pleural effusion. Inferior Vena Cava Normal inferior vena cava with >50% collapse upon inspiration consistent with normal right atrial pressure, 5 mmHg. Aorta The aortic root size at the sinus of Valsalva is normal. There is moderate aortic atherosclerosis. Left Ventricular Outflow Tract Name Value Normal LVOT 2D LVOT Diameter 2.2 cm LVOT Doppler LVOT Peak Gradient 3 mmHg LVOT Mean Gradient 1 mmHg LVOT VTI 14 cm LVOT VTI/AV VTI Ratio 0.4 LVOT Stroke Volume 53 ml LVOT CO 11.4
[2021-09-24 05:00] LABS: Basophils Absolute Auto 0.1 K/mm3 (0.0-0.1); Basophils Percent Auto 0.9 % (0.2-1.2); Eosinophils Absolute Auto 0.5 K/mm3 (0-0.3); Eosinophils Percent Auto 6.4 % (0-4.4); Hematocrit 29.8 % (42.0-52.0); Immature Granulocyte Absolute 0.03 K/mm3 (0.00-0.031); Immature Granulocyte Percent A 0.4 % (0-0.5); Lymphocytes Percent Auto 12.6 % (18.3-44.2); Mean Corpuscular HGB Conc 33.6 g/dl (32-36); Mean Corpuscular Hemoglobin 33.2 pg (26-34); Mean Platelet Volume 8.6 fl (7.4-10.4); Monocytes Absolute Auto 1.2 K/mm3 (0.1-0.6); Monocytes Percent Auto 15.1 % (2.6-8.5); Neutrophils Absolute Auto 5.2 K/mm3 (1.3-6.7); Neutrophils Percent Auto 64.6 % (45.5-73.1); Platelet Count Result 345 k/mm3 (150-375); Red Blood Count 3.01 M/mm3 (4.6-6.20); Red Cell Distribution Width 18.7 % (11.5-14.5)
[2021-09-24 05:30] LABS: Albumin Level 3.3 g/dL (3.5-5.1); Anion Gap 7 mmol/L (8-16); Blood Urea Nitrogen 20 mg/dL (9-20); Calcium 8.4 mg/dL (8.4-10.2); Carbon Dioxide 31 mmol/L (22-30); Chloride 90 mmol/L (98-107); Estimated CRCL calculation 16 ml/min; Estimated Glomerular Filt Rate 13; Glucose 129 mg/dL (65-110); Magnesium 2.1 mg/dL (1.6-2.3); Phosphorus 4.8 mg/dL (2.5-4.5); Potassium 4.5 mmol/L (3.4-5.0); Sodium 128 mmol/L (137-145)
[2021-09-24] MEDS: SEVELAMER CARBONATE 800 MG TABLET 3200 MG PO ×3 (09:06→17:49)
[2021-09-24] MEDS: FUROSEMIDE 40 MG TABLET PO (09:08)
[2021-09-24] MEDS: MIDODRINE HCL 2.5 MG TABLET 5 MG PO ×3 (09:08→17:49)
[2021-09-24] MEDS: METOPROLOL TARTRATE 50 MG TAB 100 MG PO ×2 (09:08→20:07)
[2021-09-24] MEDS: GABAPENTIN 300 MG CAPSULE PO ×2 (09:08→17:49)
[2021-09-24] MEDS: ASPIRIN 81 MG ENTERIC TABLET PO (09:09)
[2021-09-24] MEDS: AMIODARONE HCL 200 MG TABLET PO (09:09)
[2021-09-24] MEDS: FOLIC ACID 0.4 MG TABLET PO (09:09)
--- NOTE | 2021-09-24 11:48 | PM.CNNEP ---
Assessment and Plan Assessment and plan (1) End stage renal disease: Code(s): N18.6 - End stage renal disease Status: Chronic Assessment and Plan: short HD/DUF treatment today as only received partial treatment at outpatient HD unit yesterday AND confused yesterday during attempted treatment in hospital (he pulled out his needles here during dialysis) more cooperative during treatment today if remains hospitatlized, next HD treatment on Sunday follow electrolytes, volume status, and clearance (2) Altered mental status: Code(s): R41.82 - Altered mental status, unspecified Status: Acute Assessment and Plan: clinically better at this time no evidence syncope per report from outpatient dialysis unit follow mentation (3) Hyponatremia: Code(s): E87.1 - Hypo-osmolality and hyponatremia Status: Chronic Assessment and Plan: due to renal failure, excessive fluid gains, and free water intake dialysis will compensate to some degree follow trend (4) Congestive heart failure: Code(s): I50.9 - Heart failure, unspecified Status: Chronic Assessment and Plan: chronic issue at baseline chronically elevated BNP at baseline significant fluid gains inbetween dialysis treatment several hospitalization for this problem as well (5) Hypertension: Code(s): I10 - Essential (primary) hypertension Status: Chronic Assessment and Plan: reasonable control at this time follow trend of hemodynamics Will continue to follow. (6) Anemia: Code(s): D64.9 - Anemia, unspecified Status: Acute Assessment and Plan: due to ESRD Epogen with HD follow trend of H/H Will continue to follow. Additional Plan Patient seen/evaluated on hemodialysis/dry ultrafiltration treatment ([id number]). History of Present Illness Reason for Consult Consult date: 09/24/21 Reason for consult: end stage renal disease Chief Complaint Chief complaint: Syncope/hemodialysis status/congestive heart failu History of Present Illness Narrative: The patient is 70-year-old male with an extensive past medical history as outlined below who presented to [facility] ER for altered mental status. The patient was receiving his dialysis treatment yesterday at his outpatient dialysis unit when approximately 2 hours into his treatment, he became confused and tried to get up and leave in the middle of his dialysis treatment. Likely, the dialysis nurses were able to convince him that he could not leave as he was currently hooked up dialysis via his AV fistula. He continued to insist that he had Aleve and became more confused according to them so his dialysis treatment was terminated and EMS was called with subsequent transfer to [facility]. Workup and evaluation emergency room demonstrated the patient to be hemodynamically stable and apparently alert and oriented. Routine blood test demonstrated labs consistent with his known history of end-stage renal disease, an elevated BNP, And a chest x-ray that demonstrated evidence of mild fluid overload. The patient himself did not appear to be any distress and actually was quite hungry by the time of his arrival to the emergency room. It does not appear that they did a CT scan of his head. Given his complex medical history and the above issues, he was admitted the hospital for further evaluation and therapy. As he only received a partial dialysis treatment yesterday, attempts were made to do a short dialysis treatment after his admission but the patient was not very cooperative with this intervention. the dialysis nurse was able to cannulate him successfully before she could actually do anything with regard to dialysis, the patient self the seed his dialysis access needles and was not very cooperative in allowing the dialysis nurse to re-attempt cannulation. Given his ongoing confusion, the dialysi
--- NOTE | 2021-09-24 11:48 | P.CONNP_ITS ---
Assessment and Plan Assessment and plan (1) End stage renal disease: Code(s): N18.6 - End stage renal disease Status: Chronic Assessment and Plan: * short HD/DUF treatment today as only received partial treatment at outpatient HD unit yesterday AND confused yesterday during attempted treatment in hospital (he pulled out his needles here during dialysis) * more cooperative during treatment today * if remains hospitatlized, next HD treatment on Sunday * follow electrolytes, volume status, and clearance (2) Altered mental status: Code(s): R41.82 - Altered mental status, unspecified Status: Acute Assessment and Plan: * clinically better at this time * no evidence syncope per report from outpatient dialysis unit * follow mentation (3) Hyponatremia: Code(s): E87.1 - Hypo-osmolality and hyponatremia Status: Chronic Assessment and Plan: * due to renal failure, excessive fluid gains, and free water intake * dialysis will compensate to some degree * follow trend (4) Congestive heart failure: Code(s): I50.9 - Heart failure, unspecified Status: Chronic Assessment and Plan: * chronic issue at baseline * chronically elevated BNP at baseline * significant fluid gains inbetween dialysis treatment * several hospitalization for this problem as well * (5) Hypertension: Code(s): I10 - Essential (primary) hypertension Status: Chronic Assessment and Plan: * reasonable control at this time * follow trend of hemodynamics Will continue to follow. (6) Anemia: Code(s): D64.9 - Anemia, unspecified Status: Acute Assessment and Plan: * due to ESRD * Epogen with HD * follow trend of H/H Will continue to follow. Additional Plan Patient seen/evaluated on hemodialysis/dry ultrafiltration treatment ([id number]). History of Present Illness Reason for Consult Consult date: 09/24/21 Reason for consult: end stage renal disease Chief Complaint Chief complaint: Syncope/hemodialysis status/congestive heart failu History of Present Illness Narrative: The patient is 70-year-old male with an extensive past medical history as outlined below who presented to [facility] ER for altered mental status. The patient was receiving his dialysis treatment yesterday at his outpatient dialysis unit when approximately 2 hours into his treatment, he became confused and tried to get up and leave in the middle of his dialysis treatment. Likely, the dialysis nurses were able to convince him that he could not leave as he was currently hooked up dialysis via his AV fistula. He continued to insist that he had Aleve and became more confused according to them so his dialysis treatment was terminated and EMS was called with subsequent transfer to [facility]. Workup and evaluation emergency room demonstrated the patient to be hemodynamically stable and apparently alert and oriented. Routine blood test de monstrated labs consistent with his known history of end-stage renal disease, an elevated BNP, And a chest x-ray that demonstrated evidence of mild fluid overload. The patient himself did not appear to be any distress and actually was quite hungry by the time of his arrival to the emergency room. It does not appear that they did a CT scan of his head. Given his complex medical history and the above issues, he was admitted the hospital for further evaluation and therapy. As he only received a partial dialysis treatment yesterday, attempts were made to do a short dialys
[2021-09-24] MEDS: SODIUM CHLORIDE 1 GM TABLET PO ×2 (13:36→17:49)
[2021-09-24] MEDS: DOCUSATE SODIUM 100 MG CAPSULE PO (13:37)
[2021-09-24] MEDS: LIDOCAINE 5% PATCH 1 PATCH TOPICAL (15:52)
[2021-09-24] MEDS: TRIAMCINOLONE ACET 0.1% OINT 15 GM TUBE 1 APPLIC TOPICAL (15:53)
[2021-09-24] MEDS: WARFARIN (*PBKC) 2.5 MG TABLET PO (17:49)
--- NOTE | 2021-09-24 19:00 | PM.DS ---
DS: Admitting Diagnosis Discharge Date 09/24/21 DS: Summary Time Spent with Patient Time attestation: Total time spent providing and/or coordinating discharge services: DS: Data Data Completed and Pending Labs on day of discharge: Labs from last 24 hours 09/24/21 09/24/21 09/23/21 04:29 04:29 21:23 WBC 8.0 RBC 3.01 L Hgb 10.0 L Hct 29.8 L MCV 99.0 MCH 33.2 MCHC 33.6 RDW 18.7 H Plt Count 345 MPV 8.6 Immature Gran % (Auto) 0.4 Neut % (Auto) 64.6 Lymph % (Auto) 12.6 L Bea[place] % (Auto) 15.1 H Eos % (Auto) 6.4 H Baso % (Auto) 0.9 Lymph # (Auto) 1.00 [place] # (Auto) 1.2 H Eos # (Auto) 0.5 H Baso # (Auto) 0.1 Abs Immat Gran (auto) 0.03 Absolute Neuts (auto) 5.2 Absolute Nucleated RBC 0.0 Nucleated RBC % 0.0 Sodium 128 L Potassium 4.5 Chloride 90 L Carbon Dioxide 31 H Anion Gap 7 L BUN 20 Creatinine 4.60 H Estim Creat Clear Calc 16 Estimated GFR 13 L Glucose 129 H Calcium 8.4 Phosphorus 4.8 H Magnesium 2.1 Troponin I 0.022 Albumin 3.3 L Discharge Plan Discharge Consulting providers: [facility] Discharge Medications: No Action amiodarone 200 mg tablet 200 mg PO DAILY albuterol sulfate 90 mcg/actuation HFA aerosol inhaler 2 inh INHALATION Q4H PRN (Reason: Shortness Of Breath) metoprolol tartrate 100 mg Tablet 100 mg PO BID aspirin [Adult Aspirin EC Low Strength] 81 mg Tablet,Delayed Release (Dr/Ec) 81 mg PO DAILY baclofen 5 mg Tablet 5 mg PO QID PRN (Reason: Muscle Spasm) miconazole nitrate [Antifungal Cream (miconazole)] 2 % Cream 1 applic TOPICAL DAILY PRN (Reason: Itching) midodrine 5 mg Tablet 5 mg PO TID Rx Instructions: for hypotension of hemodialysis furosemide 40 mg Tablet 40 mg PO DAILY gabapentin 600 mg Tablet 600 mg PO HS sevelamer HCl 800 mg Tablet 3,200 mg PO TID Rx Instructions: must administer with a meal/food sodium chloride 1 gram Tablet 1,000 mg PO TID Rx Instructions: with meals warfarin [Coumadin] 2.5 mg Tablet 2.5 mg PO DAILY Rx Instructions: managed at [facility] folic acid 400 mcg Tablet 0.4 mg PO DAILY lidocaine-prilocaine [Emla] 2.5-2.5 % Cream 1 applic TOPICAL PRN PRN (Reason: Pain) Rx Instructions: apply to access site 30 minutes prior on dialysis days nortriptyline 25 mg Capsule 25 mg PO HS lorazepam 0.5 mg Tablet 0.5 mg PO TID PRN (Reason: Anxiety) bisacodyl 10 mg Suppository 10 mg RECTAL DAILY PRN (Reason: Constipation) triamcinolone acetonide 0.1 % Ointment 1 applic TOPICAL DAILY Rx Instructions: as directed to legs lidocaine [Lidoderm] 5 % Adhesive Patch,Medicated 1 patch TOPICAL DAILY Rx Instructions: leave on most painful area for up to 12 hrs nitroglycerin 0.4 mg Tablet, Sublingual 0.4 mg SUBLINGUAL Q5M PRN (Reason: Chest Pain) Rx Instructions: do not exceed 3 doses per episode docusate sodium 100 mg Capsule 100 mg PO BID gabapentin 300 mg Capsule 300 mg PO BID magnesium citrate Solution 300 ml PO DAILY PRN (Reason: Constipation) doxycycline hyclate 100 mg Tablet 100 mg PO BID oxycodone 5 mg Tablet 2.5 mg PO Q4H PRN (Reason: Pain) rosuvastatin 20 mg Tablet 20 mg PO HS Date of admission: 09/23/21 12:23 Primary Care Provider: ReglaGarrison Admitting Provider: Saji Ruiz Attending physician on admission: Saji Ruiz Condition: Stable Quality VTE Prophylaxis VTE prophylaxis: mechanical ordered and pharmacologic ordered
--- NOTE | 2021-09-24 19:07 | PM.IMPN ---
Progress Note: A&P Assessment and Plan (1) Syncope: Code(s): R55 - Syncope and collapse Status: Acute Assessment and Plan: Echo EF 30-35% w/ mild pulmonary hypertension, no aortic stenosis. Patient reported to have been confused at dialysis. Patient fully alert and oriented this morning. Will monitor. -Discharge held as there is a concern about placement whether the patient will return to SNF. (2) Altered mental status: Code(s): R41.82 - Altered mental status, unspecified Status: Acute Assessment and Plan: Reported confusion in hemodialysis overnight and alert and oriented this morning. Will defer CT head as patient appears to be at baseline. Confusion possibly related to uremia as patient did not get full hemodialysis treatment. (3) Atrial fibrillation, chronic: Code(s): I48.20 - Chronic atrial fibrillation, unspecified Status: Acute Assessment and Plan: Chronic on warfarin and subtherapeutic INR at admission. (4) End stage renal disease: Code(s): N18.6 - End stage renal disease Status: Chronic Assessment and Plan: ESRD on HD MWF. Nephrology consulted. Appreciate recommendations. (5) Anemia: Code(s): D64.9 - Anemia, unspecified Status: Acute Assessment and Plan: Chronic and stable likely secondary to ESRD. Will monitor. Subjective Date/time seen: 09/24/21 10:12 Patient says he feels much better. Says he does not remember anything from passing out while in hemodialysis. States his full name, , the month, and year. Review of Systems Neurologic: Denies Abnormal speech present and Denies confusion Exam Narrative: GENERAL: NAD, cooperative HEENT: Normocephalic, atraumatic, anicteric, nares clear, oropharynx moist and clear NECK: Supple CV: Normal S1, S2, RRR, No MRG RESP: CTAB, Normal work of breathing. EXTREMITIES: Warm and well perfused, no clubbing, cyanosis. SKIN: warm, dry and intact. NEURO:CN 2-12 grossly intact. Alert and oriented to person, place, said the date was September 22 and year 2021. Objective Data Vital Signs Vital Signs: Vital Signs - 24 hr 09/23/21 19:35 09/23/21 20:00 09/23/21 22:00 Temperature 96.9 F L Pulse Rate 106 H 94 105 H Respiratory Rate 14 Blood Pressure 119/66 Pulse Oximetry 92 Oxygen Delivery 09/23/21 22:00 09/23/21 20:00 09/23/21 23:54 Temperature 98 F Pulse Rate 99 94 Respiratory Rate 20 Blood Pressure 127/71 Pulse Oximetry 98 Oxygen Delivery Room Air 09/24/21 00:00 09/24/21 00:00 09/24/21 02:00 Temperature Pulse Rate 100 100 91 Respiratory Rate 20 Blood Pressure Pulse Oximetry 98 Oxygen Delivery Room Air 09/24/21 04:00 09/24/21 04:00 09/24/21 04:00 Temperature 97.6 F Pulse Rate 100 93 93 Respiratory Rate 22 H 22 H Blood Pressure 100/79 Pulse Oximetry 96 96 Oxygen Delivery Room Air 09/24/21 06:00 09/24/21 08:00 09/24/21 08:55 Temperature 97.8 F Pulse Rate 102 H 101 H Respiratory Rate 24 H Blood Pressure 144/68 H 134/75 Pulse Oximetry 92 Oxygen Delivery 09/24/21 08:55 09/24/21 08:55 09/24/21 09:08 Temperature Pulse Rate 106 H Respiratory Rate Blood Pressure 115/68 106/83 Pulse Oximetry Oxygen Delivery 09/24/21 09:09 09/24/21 08:00 09/24/21 08:00 Temperature Pulse Rate 106 H 109 H 109 H Respiratory Rate 22 H Blood Pressure Pulse Oximetry Oxygen Delivery Room Air 09/24/21 10:00 09/24/21 09:30 09/24/21 09:30 Temperature 98.2 F Pulse Rate 103 H 102 H 94 Respiratory Rate 18 Blood Pressure 128/73 118/67 Pulse Oximetry Oxygen Delivery 09/24/21 09:45 09/24/21 10:00 09/24/21 10:30 Temperature Pulse Rate 92 107 H 108 H Respiratory Rate Blood Pressure 120/68 128/63 138/68 Pulse Oximetry Oxygen Delivery 09/24/21 10:45 09/24/21 11:00 09/24/21 11:30 Temperature Pulse Rate 103 H 98 100 R
[2021-09-24 19:25] LABS: INR 1.8; Prothrombin Time 20.2 Seconds (11.1-14.7)
[2021-09-24] MEDS: oxyCODONE HCL (*CRX) 2.5 MG TAB IR PO (20:06)
[2021-09-24] MEDS: LORazepam (*CRX) 0.5 MG TABLET PO (20:06)
[2021-09-24] MEDS: GABAPENTIN 300 MG CAPSULE 600 MG PO (20:07)
[2021-09-24] MEDS: NORTRIPTYLINE HCL 25 MG CAPSULE PO (20:07)
[2021-09-24] MEDS: ROSUVASTATIN 10 MG TABLET 20 MG PO (20:08)
[2021-09-25] VITALS (9 sets, daily range): BP systolic 102–114; BP diastolic 50–80; PULSE 60–112; RESP 16–20; TEMP 35.9–36.5; O2SAT 92–100
[2021-09-25] MEDS: METOPROLOL TARTRATE 50 MG TAB 100 MG PO ×2 (09:14→20:19)
[2021-09-25] MEDS: SEVELAMER CARBONATE 800 MG TABLET 3200 MG PO ×3 (09:14→16:48)
[2021-09-25] MEDS: SODIUM CHLORIDE 1 GM TABLET PO ×3 (09:14→16:49)
[2021-09-25] MEDS: MIDODRINE HCL 2.5 MG TABLET 5 MG PO ×3 (09:14→16:49)
[2021-09-25] MEDS: ASPIRIN 81 MG ENTERIC TABLET PO (09:15)
[2021-09-25] MEDS: GABAPENTIN 300 MG CAPSULE PO ×2 (09:15→16:48)
[2021-09-25] MEDS: FUROSEMIDE 40 MG TABLET PO (09:15)
[2021-09-25] MEDS: AMIODARONE HCL 200 MG TABLET PO (09:15)
[2021-09-25] MEDS: DOCUSATE SODIUM 100 MG CAPSULE PO ×2 (09:15→16:49)
[2021-09-25] MEDS: FOLIC ACID 0.4 MG TABLET PO (09:15)
[2021-09-25] MEDS: LIDOCAINE 5% PATCH 1 PATCH TOPICAL (09:16)
[2021-09-25] MEDS: TRIAMCINOLONE ACET 0.1% OINT 15 GM TUBE 1 APPLIC TOPICAL (09:16)
[2021-09-25 13:13] LABS: INR 1.9; Prothrombin Time 20.8 Seconds (11.1-14.7)
--- NOTE | 2021-09-25 13:18 | PM.DS ---
DS: Admitting Diagnosis Discharge Date 09/25/21 Admitting Diagnosis Syncope DS: Discharge Diagnosis Discharge Diagnosis (1) Syncope: Code(s): R55 - Syncope and collapse Status: Acute Assessment and Plan: Echo EF 30-35% w/ mild pulmonary hypertension, no aortic stenosis. Patient reported to have been confused at dialysis. Patient fully alert and oriented this morning. Clinically stable. -Discharge to SNF (2) Altered mental status: Code(s): R41.82 - Altered mental status, unspecified Status: Acute Assessment and Plan: Reported confusion in hemodialysis overnight and alert and oriented this morning. Will defer CT head as patient appears to be at baseline. Confusion possibly related to uremia vs hypotension at hemodialysis. Patient now alert and oriented x 4. Resolved. (3) Atrial fibrillation, chronic: Code(s): I48.20 - Chronic atrial fibrillation, unspecified Status: Acute Assessment and Plan: On warfarin, amiodarone and metoprolol. Patient will need to have INR checked the day after discharge. (4) End stage renal disease: Code(s): N18.6 - End stage renal disease Status: Chronic Assessment and Plan: ESRD on HD MWF. Nephrology consulted. Appreciate recommendations. (5) Anemia: Code(s): D64.9 - Anemia, unspecified Status: Acute Assessment and Plan: Chronic and stable likely secondary to ESRD. Will monitor. DS: Summary Hospital Course Reason for hospitalization: Syncope Hospital Course: 70M with a past medical history of ESRD on MWF HD, CHF, atrial fibrillation on warfarin who presented to the ED from hemodialysis lethargic with concerns for syncope. The patient did not remember anything about the episode. On the first day the patient was seen he was alert and oriented but missed the date by two thinking it was September 22. Echo showed ef 30-35% with left atrial enlargement, moderate to sever tricuspid valve regurgitation and mild pulmonary hypertension. Discharge was held as there was a question about placement. Patient was amenable to be discharged to his facility. Time Spent with Patient Time attestation: Total time spent providing and/or coordinating discharge services: Exam Narrative: GENERAL: NAD, cooperative HEENT: Normocephalic, atraumatic, anicteric, nares clear, oropharynx moist and clear NECK: Supple CV: Normal S1, S2, RRR, No MRG RESP: CTAB, Normal work of breathing. EXTREMITIES: Warm and well perfused, no clubbing, cyanosis. LUE AVR w/ bruit and thrill. SKIN: warm, dry and intact. NEURO:CN 2-12 grossly intact. Alert and oriented x 4. DS: Data Data Completed and Pending Labs on day of discharge: Labs from last 24 hours 09/25/21 09/24/21 12:46 19:03 PT 20.8 H 20.2 H INR 1.9 1.8 ITS Impressions Chest X-Ray 09/23/21 10:50 IMPRESSION: 1. Diffuse lung disease, consistent with pulmonary edema versus pneumonia. 2. Moderate-sized pleural effusions. 3. Cardiomegaly. Discharge Plan Discharge Attending physician on discharge: Janelle Garcia Consulting providers: [facility] Discharging Clinician: Janelle Garcia Anticipated Discharge Date/Time: 09/25/21 14:11 Patient Disposition: NH Shelter/Asst Living Activity: as tolerated Diet: other - see discharge instructions Discharge Instructions: Needs to be on a diet for warfarin. Patient will need to have his warfarin checked at the alf until he is at therapeutic goal of 2-3. If patient develops lightheadedness, chest pain, difficulty breathing, confusion, you should seek medical attention immediately. Patient will need to be seen by the physician within the next few days. Patient Instructions: Antibiotic Form, Safe Use of Anticoagulants (GEN), Blood Thinners (GEN) Patient Language: Setswana Stand Alone Forms: General Discharge Information, Senior Care Discharge Follow
[2021-09-25 15:44] LABS: EDCOVIDSCREEN Negative (Negative)
[2021-09-25] MEDS: WARFARIN (*PBKC) 2.5 MG TABLET PO (16:49)
[2021-09-25 18:28] LABS: INR 1.8; Prothrombin Time 20.6 Seconds (11.1-14.7)
[2021-09-25] MEDS: LORazepam (*CRX) 0.5 MG TABLET PO (20:19)
[2021-09-25] MEDS: GABAPENTIN 300 MG CAPSULE 600 MG PO (20:19)
[2021-09-25] MEDS: NORTRIPTYLINE HCL 25 MG CAPSULE PO (20:19)
[2021-09-25] MEDS: ROSUVASTATIN 10 MG TABLET 20 MG PO (20:19)
== END 2021-09-25 21:56 ==
LOC: ANHED 12:20 → ANH2MED 09-25 07:39 → ANHIMU 09-28 15:39
PROVIDERS: Nurse Practitioner Adult Health; Admitting Provider Family Medicine; Emergency Provider Emergency Medicine; PCP Family Medicine; Visit Provider Family Medicine
DX: R55 Syncope and collapse (principal); E87.1 Hypo-osmolality and hyponatremia; I48.20 Chronic atrial fibrillation, unspecified; R41.82 Altered mental status, unspecified; I13.2 Hypertensive heart and chronic kidney disease with heart failure and with stage 5 chronic kidney disease, or end stage renal disease; E11.22 Type 2 diabetes mellitus with diabetic chronic kidney disease; N18.6 End stage renal disease; I50.9 Heart failure, unspecified; Z99.2 Dependence on renal dialysis; D64.9 Anemia, unspecified; I71.4 Abdominal aortic aneurysm, without rupture; I25.10 Atherosclerotic heart disease of native coronary artery without angina pectoris; I69.351 Hemiplegia and hemiparesis following cerebral infarction affecting right dominant side; J96.11 Chronic respiratory failure with hypoxia; F41.8 Other specified anxiety disorders; E78.5 Hyperlipidemia, unspecified; I25.5 Ischemic cardiomyopathy; G47.33 Obstructive sleep apnea (adult) (pediatric); I25.2 Old myocardial infarction; Z95.1 Presence of aortocoronary bypass graft; Z99.81 Dependence on supplemental oxygen; Z86.718 Personal history of other venous thrombosis and embolism; Z86.711 Personal history of pulmonary embolism; Z87.891 Personal history of nicotine dependence; Z79.51 Long term (current) use of inhaled steroids; Z79.01 Long term (current) use of anticoagulants; Z20.822 Contact with and (suspected) exposure to COVID-19
CPT/HCPCS: 36415; 71045; 71046; 80053; 80069; 82948; 83735; 83880; 84484; 85025; 85610; 85730; 87040; 87426; 93005; 93306; 93970; 96374; 96375; 97161; 97165; 99284; 99285; A9270; C9803; G0257; G0378; J1170; J1644; J2405; J7030; U0003; U0005

== ENCOUNTER 2021-09-28 07:14 | Inpatient (IN) | payer MEDICARE, SELFPAY ==
[2021-09-28] VITALS (27 sets, daily range): BP systolic 100–144; BP diastolic 51–97; PULSE 63–103; RESP 10–20; TEMP 36.3–37.2; O2SAT 93–96; BMI 33.3
--- NOTE | ~2021-09-28 | XR_ITS ---
EXAMINATION: XR foot LT 2V DATE: 09/29/2021 13:12 INDICATION: Osteomyelitis TECHNIQUE: Dorsoplantar and lateral views of the left foot were obtained. COMPARISON: 10/09/2018 FINDINGS: Bone alignment is normal. No fracture. Mild polyarticular osteoarthritis at a few of the tarsal metat arsal and interphalangeal joints. No cortical erosions or periosteal reaction to suggest osteomyeliti s. Small plantar calcaneal spur. Scattered vascular calcifications about the foot and distal lower le g. Mild soft tissue swelling over the dorsum of the foot. No ankle joint effusion. IMPRESSION: 1. 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 No findings to suggest osteomyelitis. Reviewed, dictated and finalized at location B. IMPRESSION: 1. 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 No findings to shane ggest osteomyelitis.
--- NOTE | ~2021-09-28 | XR_ITS ---
XR chest 1V 09/28/2021 08:15 Indication: Altered mental status. External defibrillator on patient. Procedure: AP portable chest Comparison: Comparison to multiple prior studies sequentially, with oldest reviewed study dated 09/20. Findings: Cardiomegaly with pulmonary edema. Bilateral pleural effusions. No pneumothorax. Status pos t median sternotomy for CABG. External defibrillator leads are seen overlying the chest. Impression: 1: Cardiomegaly with pulmonary edema. 2: Bilateral pleural effusions. Reviewed, dictated and finalized at location A. Impression: 1: Cardiomegaly with pulmonary edema. 2: Bilateral pleural effusions.
--- NOTE | ~2021-09-28 | US_ITS ---
EXAMINATION: US arterial ankle brachial ind DATE: 09/28/2021 15:53 INDICATION: Peripheral arterial disease. TECHNIQUE: Segmental pressures and plethysmographic and Doppler waveforms of the brachial and lower e xtremity arteries were obtained. COMPARISON: None. FINDINGS: Left brachial artery pressure is 141 mm Hg. Right brachial artery pressure was not measured. The right ankle-brachial index (DEANN) could not be measured due to inability to cuff occlude the arter ies (normal >= 0.9-1.0). The right great toe-brachial index (TBI) is 0.46 (normal >= 0.65). Arterial Doppler waveforms are biphasic at the ankle. The left DEANN could not be measured due to inability to cuff occlude the arteries. The left TBI is 0.4 3. Arterial Doppler waveforms are biphasic at the ankle. IMPRESSION: 1. Decreased TBIs and nondiagnostic ABIs, consistent with arterial occlusive disease. Reviewed, dictated and finalized at location A. IMPRESSION: 1. Decreased TBIs and nondiagnostic ABIs, consistent with arterial occlusive di sease.
--- NOTE | ~2021-09-28 | CT_ITS ---
EXAMINATION: CT brain wo con DATE: 09/28/2021 08:09 INDICATION: Altered mental status. TECHNIQUE: Computed tomography (CT) of the head was performed without intravenous contrast. The dose- length product was 681.00 mGy-cm. Automated exposure control and iterative reconstruction technique w ere employed. COMPARISON: CT dated 10/31/2018 FINDINGS: Generalized atrophy. There are chronic infarctions of the corpus callosum and anteriorly, r ight occipital lobe bilateral frontal and left parietal lobes. Chronic infarction of the left cerebel lum. Chronic left lacunar infarction. Generalized atrophy. There are scattered moderate periventricul ar and subcortical white matter changes, most likely related to small vessel ischemic disease (microa ngiopathy). No acute intracranial hemorrhage, infarction, mass or mass effect. Paranasal sinuses are pneumatized. Mastoids are pneumatized. No depressed skull fractures. IMPRESSION: 1. No acute intracranial abnormality. 2: Multiple chronic infarctions described above. 3: Chronic age-related findings. Reviewed, dictated and finalized at location A.
--- NOTE | 2021-09-28 07:15 | ECG_ITS ---
Measurements Intervals [place] Rate: 90 P: RI: 0 QRS: 45 QRSD: 113 T: 163 QT: 388 QTc: 475 Interpretive Statements ATRIAL FIBRILLATION LOW QRS VOLTAGE IN EXTREMITY LEADS [QRS DEFLECTION < 0.5 mV IN LIMB LEADS] MODERATE INTRAVENTRICULAR CONDUCTION DELAY [110+ ms QRS DURATION] ABNORMAL ECG COMPARED TO ECG 09/23/2021 10:20:44 NO SIGNIFICANT CHANGE Electronically Signed On 09-28-2021 11:34:00 CDT by Félix Santacruz M.D.
--- NOTE | 2021-09-28 07:21 | ED.GENADULT ---
HPI - General Adult General Chief complaint: Altered Mental Status Stated complaint: ams Time Seen by Provider: 09/28/21 07:15 History of Present Illness HPI narrative: Patient presents emergency department from [facility] via EMS for altered mental status. Patient has a history of chronic renal failure with dialysis on Wednesdays and Fridays patient was due to go to dialysis today and when staff gone to wake him this morning the patient was notably altered the patient is normally awake and alert x3 and is only ANO x1 this morning. Patient currently laying in bed unable to give any full history secondary to confusion Related Data Home Medications Medication Instructions Recorded Confirmed amiodarone 200 mg tablet 200 mg PO DAILY 04/24/20 09/23/21 albuterol sulfate 90 mcg/actuation 2 inh inhalation Q4H PRN Shortness 09/23/21 09/23/21 aerosol inhaler Of Breath aspirin 81 mg tablet,delayed 81 mg PO DAILY 09/23/21 09/23/21 release baclofen 5 mg tablet 5 mg PO QID PRN Muscle Spasm 09/23/21 09/23/21 bisacodyl 10 mg rectal suppository 10 mg RECTAL DAILY PRN Constipation 09/23/21 09/23/21 docusate sodium 100 mg capsule 100 mg PO BID 09/23/21 09/23/21 doxycycline hyclate 100 mg tablet 100 mg PO BID 09/23/21 09/23/21 folic acid 400 mcg tablet 0.4 mg PO DAILY 09/23/21 09/23/21 furosemide 40 mg tablet 40 mg PO DAILY 09/23/21 09/23/21 gabapentin 300 mg capsule 300 mg PO BID 09/23/21 09/23/21 gabapentin 600 mg tablet 600 mg PO HS 09/23/21 09/23/21 lidocaine 5 % topical patch 1 patch topical DAILY 09/23/21 09/23/21 (Lidoderm) lidocaine-prilocaine 2.5 %-2.5 % 1 applic topical PRN PRN Pain 09/23/21 09/23/21 topical cream lorazepam 0.5 mg tablet 0.5 mg PO TID PRN Anxiety 09/23/21 09/23/21 magnesium citrate 300 ml PO DAILY PRN Constipation 09/23/21 09/23/21 metoprolol tartrate 100 mg tablet 100 mg PO BID 09/23/21 09/23/21 miconazole nitrate 2 % topical 1 applic topical DAILY PRN Itching 09/23/21 09/23/21 cream (Antifungal Cream (miconazole)) midodrine 5 mg tablet 5 mg PO TID 09/23/21 09/23/21 nitroglycerin 0.4 mg sublingual 0.4 mg sublingual Q5M PRN Chest 09/23/21 09/23/21 tablet Pain nortriptyline 25 mg capsule 25 mg PO HS 09/23/21 09/23/21 oxycodone 5 mg tablet 2.5 mg PO Q4H PRN Pain 09/23/21 09/23/21 rosuvastatin 20 mg tablet 20 mg PO HS 09/23/21 09/23/21 sevelamer HCl 800 mg tablet 3,200 mg PO TID 09/23/21 09/23/21 sodium chloride 1 gram tablet 1,000 mg PO TID 09/23/21 09/23/21 triamcinolone acetonide 0.1 % 1 applic topical DAILY 09/23/21 09/23/21 topical ointment warfarin 2.5 mg tablet 2.5 mg PO DAILY 09/23/21 09/23/21 Allergies Allergy/AdvReac Type Severity Reaction Status Date / Time atorvastatin Allergy Unknown Rash Verified 09/20/21 11:58 morphine Allergy Unknown Verified 09/20/21 11:58 Penicillins Allergy Unknown Verified 09/20/21 11:58 Review of Systems Review of Systems: Unable to obtain review of systems secondary to altered mental status [facility] Past Medical History Medical History AAA (abdominal aortic aneurysm) Stable mid abdominal aortic saccular aneurysm measuring 4.2 cm on imaging dated 01/21/2020 Bacterial infection due to Proteus mirabilis (~10/2018) Secondary to infected dialysis catheter. C. difficile diarrhea 04/2018 CAD (coronary artery disease) Cardiac catheterization in March 2018 doing showed total occlusion of the obtuse and left main with severe disease in the LAD in which she was transferred to [facility] for urgent 2 vessel CABG. 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 Chronic anemia Chronic respiratory failure with hypoxia, on home oxygen therapy On 2 L nasal cannula. Congestive heart failure Echo in Dec 2019 showed EF 55-60%, Grade 3 DD and HK apical septum and inferoapical beyer. Moderate Pulm HTN (48) Coronary artery disease Cardiac catheterization in March 2018 doing showed total o
[2021-09-28 07:36] LABS: Basophils Absolute Auto 0.1 K/mm3 (0.0-0.1); Basophils Percent Auto 0.7 % (0.2-1.2); Eosinophils Absolute Auto 0.4 K/mm3 (0-0.3); Eosinophils Percent Auto 3.7 % (0-4.4); Hematocrit 32.2 % (42.0-52.0); Hemoglobin 10.2 g/dL (14.0-18.0); Immature Granulocyte Absolute 0.03 K/mm3 (0.00-0.031); Immature Granulocyte Percent A 0.3 % (0-0.5); Lymphocytes Absolute Auto 1.03 K/mm3 (0.9-3.2); Lymphocytes Percent Auto 9.1 % (18.3-44.2); Mean Corpuscular HGB Conc 31.7 g/dl (32-36); Mean Corpuscular Hemoglobin 32.6 pg (26-34); Mean Corpuscular Volume 102.9 fl (80-100); Mean Platelet Volume 8.6 fl (7.4-10.4); Monocytes Absolute Auto 1.6 K/mm3 (0.1-0.6); Monocytes Percent Auto 14.2 % (2.6-8.5); Neutrophils Absolute Auto 8.1 K/mm3 (1.3-6.7); Platelet Count Result 338 k/mm3 (150-375); Red Blood Count 3.13 M/mm3 (4.6-6.20); Red Cell Distribution Width 18.3 % (11.5-14.5); White Blood Count 11.3 K/mm3 (4.5-10.0)
[2021-09-28 07:46] LABS: Lactic Acid Reflex 1.4 mmol/L (0.7-2.0)
[2021-09-28 07:47] LABS: Alanine Aminotransferase 18 U/L (6-50); Albumin Level 3.3 g/dL (3.5-5.1); Alkaline Phosphatase 142 U/L (38-126); Anion Gap 8 mmol/L (8-16); Aspartate Amino Transferase 28 U/L (17-59); Bilirubin,Total 0.8 mg/dL (0.2-1.3); Blood Urea Nitrogen 24 mg/dL (9-20); Calcium 8.6 mg/dL (8.4-10.2); Carbon Dioxide 30 mmol/L (22-30); Chloride 94 mmol/L (98-107); Estimated CRCL calculation 13 ml/min; Estimated Glomerular Filt Rate 10; Glucose 128 mg/dL (65-110); Potassium 4.6 mmol/L (3.4-5.0); Sodium 132 mmol/L (137-145)
[2021-09-28 07:54] LABS: INR 2.2
[2021-09-28 07:55] LABS: Partial Thromboplastin Time 50.3 SECONDS (22.3-36.8)
[2021-09-28 07:57] LABS: Alveolar/Arterial O2 Gradient 44.6 mmHg; Base Excess ABG 2.8 mEq/l (+/-2.0); Carboxyhemoglobin 2.9 % THb (0-2.0); Fractional Inspired Oxygen 21 %; HCO3 ABG 27.2 mEq/l (22.0-26.0); Methemoglobin ABG 0.1 %THb (0-1.5); Oxygen Content ABG 13.4 %vol (16.0-22.0); Oxygen Saturation ABG 90.4 % (95.0-100.0); PCO2 ABG 40.8 mmHg (35.0-45.0); PO2 ABG 56.3 mmHg (80.0-100.0); PO2 FiO2 Ratio Arterial Blood 2.68 %; Reduced Hemoglobin 11.6 %THb (0-5.0); Total Hemoglobin 11.1 g/dL (12.0-18.0); pH ABG 7.441 (7.350-7.450)
[2021-09-28 07:59] LABS: Device ROOM AIR; Modified Allen's Test Pass; Oxyhemoglobin 85.4 % THb (90.0-100.0); Site Drawn LEFT RADIAL
[2021-09-28 08:29] LABS: Appearance Urine Clear (Clear); Bilirubin Urine Negative (Negative); Blood Urine Negative (Negative); Color Urine Yellow (Yellow); Glucose Urine UA Negative (Negative); Ketones Urine Negative (Negative); Leukocyte Esterase Ur Negative LEU/UL (Negative); Nitrate Urine Negative (Negative); Protein Urine 2+ mg/dL (Negative); Urobilinogen Urine 0.2 mg/dL (<2.0); pH Urine 8.5 (5.0-9.0)
[2021-09-28 08:39] LABS: Mucus Urine Rare /lpf; RBC Urine 0-2 /hpf (0-2); Squamous Epithelial Cell Urine Rare /hpf (Few); WBC Urine 0-3 /hpf
[2021-09-28 08:43] LABS: Add Urine Microscopic? YES
--- NOTE | 2021-09-28 10:25 | ADMGEN ---
This patient, David Saleh, was admitted to [facility] Surg Room 321-01. Patient/family oriented to hospital policies and general routines including ID bracelet, bed and alarms, visiting hours, pain management, procedures, bathroom and other care routines, personal items, smoking policy, room service/diet, and visiting hours. Information on how to activate the Rapid Response Team has been discussed. Patient/Family are encouraged to report perceived risks to care and to ask questions if they do not understand what they are told or what they should do.
--- NOTE | 2021-09-28 13:00 | PM.IMHP ---
H&P: HPI History of Present Illness Date/Time: 09/28/21 13:00 Chief Complaint: Altered mental status. Narrative: This is a 70-year-old male with multiple medical problems including paroxysmal atrial fibrillation on long-term anticoagulation, diastolic congestive heart failure, coronary artery disease, end-stage renal disease on hemodialysis, obstructive sleep apnea, hypertension, and hyperlipidemia who presented to the emergency department earlier today via EMS for evaluation of altered mental status. He was just admitted to the hospital on 09/23/2021 after a syncopal episode at dialysis. At the time of the syncopal episode he was wearing his LifeVest which did not fire. He was monitored on telemetry for several days with no significant dysrhythmias and a repeat echocardiogram showed an EF 30 to 35% with mild pulmonary hypertension. He was discharged back to his nursing facility on 09/25/2021. When I entered the room today the patient was asleep and he is alert and oriented x4 at this time. He does remember feeling a bit confused this morning and it is my understanding that he was sent to the ER today because of that, instead of going to dialysis. Overall he reports generalized malaise however he cannot really pinpoint any specific complaint. He goes on to say that his recently and he became very tearful when discussing this. The only complaint he had at the time my evaluation was of some vague discomfort in his right upper leg. He denied headache, fever, chills, sweats, cold and flu symptoms, chest pain, shortness breast, nausea, vomiting, diarrhea, and dysuria. His appetite is good and he reports eating almost all of his lunch. On exam he has wounds on his left foot and left 5th toe which he states is chronic and is being followed by wound care. He is not currently wearing his glasses and he is unable to tell me whether not it looks worse than usual. Review of Systems Review of Systems: Twelve systems were reviewed and are negative except for as per HPI. [facility] Past Medical History Medical History (Updated 09/28/21 @ 14:32 by Rena Payton PA-C) Abdominal aortic aneurysm Stable mid abdominal aortic saccular aneurysm measuring 4.2 cm on imaging dated 01/21/2020. Bacterial infection due to Proteus mirabilis (10/2018) Secondary to infected dialysis catheter. C. 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 Chronic anemia Chronic anticoagulation Chronic hyponatremia Chronic respiratory failure with hypoxia, on home oxygen therapy On 2 L nasal cannula p.r.n.. Congestive heart failure Echo in Dec 2019 showed EF 55-60%, Grade 3 DD and HK apical septum and inferoapical beyer. Moderate Pulm HTN (48) Coronary artery disease Cardiac catheterization in March 2018 doing showed total occlusion of the obtuse and left main with severe disease in the LAD in which she was transferred to [facility] for urgent 2 vessel CABG. 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 Depression with anxiety Diet-controlled type 2 diabetes mellitus Hemoglobin A1c was 6.8% in August 2020. End-stage renal disease on hemodialysis Dialysis on Sunday, Sunday, and Sunday. Erythropoietin deficiency anemia Essential hypertension History of Pseudomonas pneumonia Hyperlipidemia Hypertension Ischemic cardiomyopathy Ejection fraction as low as 35% with improvement on recent echocardiogram as above. 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 Pulmonary embolism Small RUL and RLL by CT in Dec 2019 Renal osteodystrophy STEMI (ST elevation myocardial infarction) 03/2018 Surgical History Surgical History (Updated 09/28/21 @ 13:02 by Rena Payton PA-C) Hemod
[2021-09-28] MEDS: EPOETIN ALFA 4,000 UNITS/ML VIAL 4000 UNITS IV PUSH (17:56)
--- NOTE | 2021-09-28 18:04 | PM.CNNEP ---
Assessment and Plan Assessment and plan (1) End stage renal disease: Code(s): N18.6 - End stage renal disease Status: Chronic Assessment and Plan: HD today and continue M/W/F dialysis schedul follow electrolytes, volume status, and clearance (2) Altered mental status: Code(s): R41.82 - Altered mental status, unspecified Status: Acute Assessment and Plan: clinically better at this time perhaps due due narcotics +/- muscle relaxers follow mentation (3) Hyponatremia: Code(s): E87.1 - Hypo-osmolality and hyponatremia Status: Chronic Assessment and Plan: due to renal failure, excessive fluid gains, and free water intake dialysis will compensate to some degree follow trend (4) Congestive heart failure: Code(s): I50.9 - Heart failure, unspecified Status: Chronic Assessment and Plan: chronic issue at baseline chronically elevated BNP at baseline significant fluid gains inbetween dialysis treatment several hospitalization for this problem as well (5) Hypertension: Code(s): I10 - Essential (primary) hypertension Status: Chronic Assessment and Plan: reasonable control at this time follow trend of hemodynamics (6) Anemia: Code(s): D64.9 - Anemia, unspecified Status: Acute Assessment and Plan: due to ESRD Epogen with HD follow trend of H/H Will continue to follow. History of Present Illness Reason for Consult Consult date: 09/28/21 Reason for consult: end stage renal disease Chief Complaint Chief complaint: Altered mental status/chronic renal failure dialys History of Present Illness Narrative: The patient is 70-year-old male with an extensive past medical history as outlined below who presented to [facility] ER for altered mental status. The patient was just recently hospitalized last week with similar issues/complaints. However with just supportive therapy his mental status seemed to improve quite dramatically and he was discharged back to his nursing facility in stable condition. Apparently, he was reportedly altered earlier today which prompted EMS to be called and subsequently transferred to the ER for evaluation. The patient self feels quite well at this time although he does report that he seemed to be somewhat confused earlier today. He was taken to [facility] Emergency room for further evaluation Erum unfortunately was not really able to go to his outpatient dialysis facility. Workup and evaluation emergency room demonstrated the patient to be hemodynamically stable and apparently alert and oriented x 3. Routine blood test demonstrated labs consistent with his known history of end-stage renal disease, an elevated BNP, And a chest x-ray that demonstrated evidence of pulmonary vascular congestion/fluid overload. The patient himself did not appear to be any distress. From review of his medication list, it was noted that he is on Baclofen as well as narcotics and there is some concern that perhaps these combination of medications may have led to a transient issue with regard to his mental status. Given his complex medical history and the above issues, he was admitted the hospital for further evaluation and therapy. Renal consultation was requested due to his end-stage renal disease. The patient normally dialyzes on a Sunday schedule under the care of Dr. Harshil Cardenas at for [facility]. From a dialysis perspective, he has been doing reasonably well with relative stability in his CKD parameters but he has been known to have significant/frequent excessive fluid gains in between his dialysis treatments at baseline. He is currently receiving dialysis at the time of my visit (he was seen on dialysis at 5:40 p.m.) an effort to further optimize his electrolytes, volume status, and clearance. Currently, as already mentioned, his m
[2021-09-28 19:25] LABS: Hepatitis B Surface Antigen Negative (Negative)
[2021-09-28] MEDS: GABAPENTIN 300 MG CAPSULE 600 MG PO (20:47)
[2021-09-28] MEDS: ROSUVASTATIN 10 MG TABLET 20 MG PO (20:48)
[2021-09-28] MEDS: NORTRIPTYLINE HCL 25 MG CAPSULE PO (20:48)
[2021-09-28] MEDS: METOPROLOL TARTRATE 50 MG TAB 100 MG PO (20:48)
[2021-09-29] VITALS (16 sets, daily range): BP systolic 108–111; BP diastolic 48–69; PULSE 68–103; RESP 16–18; TEMP 36.1–36.9; O2SAT 91–100
[2021-09-29 02:06] LABS: SARS-CoV-2 RNA PCR Negative
[2021-09-29 05:04] LABS: Glucose Point of Care 115 mg/dl (65-105)
[2021-09-29 06:55] LABS: Basophils Absolute Auto 0.1 K/mm3 (0.0-0.1); Basophils Percent Auto 0.6 % (0.2-1.2); Eosinophils Absolute Auto 0.5 K/mm3 (0-0.3); Eosinophils Percent Auto 4.4 % (0-4.4); Hematocrit 30.4 % (42.0-52.0); Hemoglobin 9.7 g/dL (14.0-18.0); Immature Granulocyte Absolute 0.04 K/mm3 (0.00-0.031); Immature Granulocyte Percent A 0.4 % (0-0.5); Lymphocytes Absolute Auto 0.81 K/mm3 (0.9-3.2); Lymphocytes Percent Auto 7.8 % (18.3-44.2); Mean Corpuscular HGB Conc 31.9 g/dl (32-36); Mean Corpuscular Hemoglobin 32.3 pg (26-34); Mean Corpuscular Volume 101.3 fl (80-100); Mean Platelet Volume 8.6 fl (7.4-10.4); Monocytes Absolute Auto 1.3 K/mm3 (0.1-0.6); Monocytes Percent Auto 12.9 % (2.6-8.5); Neutrophils Absolute Auto 7.6 K/mm3 (1.3-6.7); Neutrophils Percent Auto 73.9 % (45.5-73.1); Platelet Count Result 296 k/mm3 (150-375); Red Cell Distribution Width 17.8 % (11.5-14.5); White Blood Count 10.3 K/mm3 (4.5-10.0)
[2021-09-29 07:03] LABS: INR 2.2; Prothrombin Time 24.1 Seconds (11.1-14.7)
[2021-09-29 07:08] LABS: Alanine Aminotransferase 16 U/L (6-50); Alkaline Phosphatase 123 U/L (38-126); Anion Gap 7 mmol/L (8-16); Aspartate Amino Transferase 21 U/L (17-59); Bilirubin,Total 0.7 mg/dL (0.2-1.3); Blood Urea Nitrogen 19 mg/dL (9-20); Calcium 8.1 mg/dL (8.4-10.2); Carbon Dioxide 31 mmol/L (22-30); Chloride 95 mmol/L (98-107); Estimated CRCL calculation 16 ml/min; Estimated Glomerular Filt Rate 13; Glucose 128 mg/dL (65-110); Phosphorus 4.5 mg/dL (2.5-4.5); Potassium 4.2 mmol/L (3.4-5.0); Sodium 133 mmol/L (137-145)
[2021-09-29] MEDS: SODIUM CHLORIDE 1 GM TABLET PO ×3 (09:08→16:09)
[2021-09-29] MEDS: MIDODRINE HCL 2.5 MG TABLET 5 MG PO ×2 (09:08→18:22)
[2021-09-29] MEDS: FUROSEMIDE 40 MG TABLET PO (09:09)
[2021-09-29] MEDS: ASPIRIN 81 MG ENTERIC TABLET PO (09:11)
[2021-09-29] MEDS: FOLIC ACID 0.4 MG TABLET PO (09:11)
[2021-09-29] MEDS: LIDOCAINE 5% PATCH 1 PATCH TOPICAL (09:12)
[2021-09-29] MEDS: DOCUSATE SODIUM 100 MG CAPSULE PO ×2 (09:12→16:08)
[2021-09-29] MEDS: AMIODARONE HCL 200 MG TABLET PO (09:41)
[2021-09-29] MEDS: METOPROLOL TARTRATE 50 MG TAB 100 MG PO ×2 (09:43→20:28)
--- NOTE | 2021-09-29 09:47 | PCCCNOTE ---
On 09/29/21, the student, [Sierra Abbott], provided care and completed [facility] documentation on this patient. I have reviewed the student's documentation and agree with the findings.
--- NOTE | 2021-09-29 10:32 | PM.IMPN ---
Progress Note: A&P Assessment and Plan (1) Confusion: Code(s): R41.0 - Disorientation, unspecified Status: Acute Assessment and Plan: Transient and resolved, etiology not clear at this time. TIA/CVA less likely by history. ABG with no evidence of CO2 retention. (2) Wound of left foot: Code(s): S91.302A - Unspecified open wound, left foot, initial encounter Status: Acute Assessment and Plan: Chronic according to the patient. Wound nurse consulted. Will likely need amputation after looking at the toe. ABIs have been ordered but was nondiagnostic. X-ray ordered by myself this morning. Will have Ortho evaluate the patient as well (3) Cellulitis of fifth toe, left: Code(s): L03.032 - Cellulitis of left toe Status: Acute Assessment and Plan: Likely dry gangrene. Will titrate antibiotics time, Ortho consult (4) End-stage renal disease on hemodialysis: Code(s): N18.6 - End stage renal disease; Z99.2 - Dependence on renal dialysis Status: Chronic Assessment and Plan: Nephrology consulted for hemodialysis. (5) Chronic hyponatremia: Code(s): E87.1 - Hypo-osmolality and hyponatremia Status: Acute Assessment and Plan: Stable on review of previous labs. Continue sodium tablets. (6) Chronic anemia: Code(s): D64.9 - Anemia, unspecified Status: Chronic Assessment and Plan: Stable on review of previous labs. MCV is elevated, check B12 and folate. (7) Diet-controlled type 2 diabetes mellitus: Code(s): E11.9 - Type 2 diabetes mellitus without complications Status: Acute Assessment and Plan: Random glucose today is 128. Check hemoglobin A1c. (8) Ischemic cardiomyopathy: Code(s): I25.5 - Ischemic cardiomyopathy Status: Acute Assessment and Plan: Patient is edematous with crackles on exam. Appears in no respiratory distress, however. Due for dialysis today. Continue p.o. furosemide. (9) Chronic anticoagulation: Code(s): Z79.01 - termite technician (current) use of anticoagulants Status: Acute Assessment and Plan: INR is therapeutic at 2.2. Continue warfarin. Subjective Date/time seen: 09/29/21 10:32 Doing well, no new complaints Exam Narrative: General: Chronically ill-appearing gentleman sitting up in bed. Nontoxic in appearance. Weight: 99.6 kg. BMI: 33.4. HEENT: PERRL, EOMI. Sclerae anicteric. Conjunctiva mildly injected. Moist mucous membranes. Fair dentition. Neck: Supple. No JVD. Respiratory: Respirations are even and nonlabored. Scattered bibasilar crackles. Occasional cough. Cardiovascular: Regular rate and rhythm with S1-S2. Systolic murmur at the upper sternal border. Gastrointestinal: Abdomen is soft, protuberant, nontender, and nondistended with positive bowel sounds. Skin: Warm and dry. Scattered bruising and excoriations of the upper extremities. Feet are dry and scaly. Toenails are thickened and yellow. Left 5th toe with dry gangrene starting of the DIP joint. There is a sub cm circular punched-out lesion near the left 3rd MTP joint with red base and scattered yellow sloughing around the perimeter. All toes on the left foot are erythematous and blanchable. No significant warmth or drainage noted. Patient reports mild tenderness with palpation of this area. Extremities: No cyanosis or clubbing. 2 to 3+ pitting edema up to the thighs. Right upper extremity AV fistula with palpable thrill and bruit. Right pedal pulse intact. Difficult to palpate left pedal pulse. Left posterior tibialis pulse palpable. Neurological: Alert and oriented x4. Cranial nerves 2-12 are grossly intact. Speech is clear. No facial asymmetry. Residual, mild right-sided weakness from previous stroke. N Psychiatric: Pleasant and cooperative. Depressed mood and flat/tearful affect. Objective Data Vital Signs Vital Signs: Vital Signs - 24 hr 06/0
[2021-09-29] MEDS: GABAPENTIN 300 MG CAPSULE PO ×2 (11:32→16:08)
--- NOTE | 2021-09-29 13:27 | PM.PNNEP ---
Progress Note: A&P Assessment and Plan (1) End stage renal disease: Code(s): N18.6 - End stage renal disease Status: Chronic Assessment and Plan: HD tomorrow and continue M/W/ dialysis schedule follow electrolytes, volume status, and clearance (2) Altered mental status: Code(s): R41.82 - Altered mental status, unspecified Status: Acute Assessment and Plan: clinically better at this time perhaps due due narcotics +/- muscle relaxers follow mentation (3) Hyponatremia: Code(s): E87.1 - Hypo-osmolality and hyponatremia Status: Chronic Assessment and Plan: due to renal failure, excessive fluid gains, and free water intake dialysis will compensate to some degree follow trend (4) Congestive heart failure: Code(s): I50.9 - Heart failure, unspecified Status: Chronic Assessment and Plan: chronic issue at baseline chronically elevated BNP at baseline (due to chronic volume overload) significant fluid gains inbetween dialysis treatment several hospitalization for this problem as well (5) Hypertension: Code(s): I10 - Essential (primary) hypertension Status: Chronic Assessment and Plan: reasonable control at this time follow trend of hemodynamics (6) Wound of left foot: Code(s): S91.302A - Unspecified open wound, left foot, initial encounter Status: Acute Assessment and Plan: chronic per patient possible cellulitis present as well left fifth toe discoloration noted - possible gangrene? would care nurse as well as Orthopedics consulted (7) Anemia: Code(s): D64.9 - Anemia, unspecified Status: Acute Assessment and Plan: due to ESRD Epogen with HD follow trend of H/H Will continue to follow. Subjective Date/time seen: 09/29/21 13:27 Tolerated dialysis yesterday without any issues or problems voiced; mentatl status is doing much better; no issues.events overnight per patient or nursing; remains somewhat fatigued; no apparent distress noted at this time. Exam Narrative: General: somewhat ill appearing Caucaisan male in NAD Heart: normal S1 and S2; no rub Lungs: decreased at bases Abdomen: soft, nontender, nondistended, positive bowel sounds Extremities: no cyanosis or clubbing; 2+ edema Skin: left foot erythematous; left fifth toe discolored Objective Data Vital Signs Vital Signs: Vital Signs 09/29/21 00:00 09/29/21 04:00 09/29/21 05:43 Temperature 36.9 C Pulse Rate 81 95 91 Respiratory Rate 17 Blood Pressure 108/48 L Pulse Oximetry 100 Oxygen Delivery Oxygen Flow Rate 09/29/21 09:13 09/29/21 09:41 09/29/21 09:43 Temperature Pulse Rate 68 68 Respiratory Rate Blood Pressure Pulse Oximetry 100 Oxygen Delivery Nasal Cannula Oxygen Flow Rate 5 09/29/21 14:35 09/29/21 08:00 09/29/21 08:00 Temperature 36.1 C L Pulse Rate 98 96 Respiratory Rate 18 Blood Pressure 111/63 Pulse Oximetry 91 96 Oxygen Delivery Nasal Cannula Oxygen Flow Rate 2 09/29/21 12:00 Temperature Pulse Rate 96 Respiratory Rate Blood Pressure Pulse Oximetry Oxygen Delivery Oxygen Flow Rate Intake/Output Intake/Output: Intake & Output 09/27/21 09/28/21 09/29/21 09/30/21 23:59 23:59 23:59 23:59 Intake Total 390 1680 850 Output Total 4120 0 Balance -3730 1680 850 Meds/Results Medications: Active Medications Generic Name Dose Route Start Last Admin Trade Name Freq PRN Reason Stop Dose Admin Amiodarone HCl 200 mg 09/29/21 09:00 09/30/21 08:39 Amiodarone Hcl 200 Mg Tablet PO 200 mg DAILY LUDWIG Administration Aspirin 81 mg 09/29/21 09:00 09/30/21 08:36 Aspirin 81 Mg Enteric Tablet PO 81 mg DAILY LUDWIG Administration Docusate Sodium 100 mg 09/29/21 09:00 09/30/21 08:39 Docusate Sodium 100 Mg Capsule PO 100 mg BID LUDWIG Administration Folic Acid 0.4
--- NOTE | 2021-09-29 13:27 | P.PNNP_ITS ---
Progress Note: A&P Assessment and Plan (1) End stage renal disease: Code(s): N18.6 - End stage renal disease Status: Chronic Assessment and Plan: * HD tomorrow and continue M/W/ dialysis schedule * follow electrolytes, volume status, and clearance (2) Altered mental status: Code(s): R41.82 - Altered mental status, unspecified Status: Acute Assessment and Plan: * clinically better at this time * perhaps due due narcotics +/- muscle relaxers * follow mentation (3) Hyponatremia: Code(s): E87.1 - Hypo-osmolality and hyponatremia Status: Chronic Assessment and Plan: * due to renal failure, excessive fluid gains, and free water intake * dialysis will compensate to some degree * follow trend (4) Congestive heart failure: Code(s): I50.9 - Heart failure, unspecified Status: Chronic Assessment and Plan: * chronic issue at baseline * chronically elevated BNP at baseline (due to chronic volume overload) * significant fluid gains inbetween dialysis treatment * several hospitalization for this problem as well (5) Hypertension: Code(s): I10 - Essential (primary) hypertension Status: Chronic Assessment and Plan: * reasonable control at this time * follow trend of hemodynamics (6) Wound of left foot: Code(s): S91.302A - Unspecified open wound, left foot, initial encounter Status: Acute Assessment and Plan: * chronic per patient * possible cellulitis present as well * left fifth toe discoloration noted - possible gangrene? * would care nurse as well as Orthopedics consulted (7) Anemia: Code(s): D64.9 - Anemia, unspecified Status: Acute Assessment and Plan: * due to ESRD * Epogen with HD * follow trend of H/H Will continue to follow. Subjective Date/time seen: 09/29/21 13:27 Tolerated dialysis yesterday without any issues or problems voiced; mentatl status is doing much better; no issues.events overnight per patient or nursing; remains somewhat fatigued; no apparent distress noted at this time. Exam Narrative: General: somewhat ill appearing Caucaisan male in NAD Heart: normal S1 and S2; no rub Lungs: decreased at bases Abdomen: soft, nontender, nondistended, positive bowel sounds Extremities: no cyanosis or clubbing; 2+ edema Skin: left foot erythematous; left fifth toe discolored Objective Data Vital Signs Vital Signs: Vital Signs 09/29/21 00:00 09/29/21 04:00 09/29/21 05:43 Temperature 36.9 C Pulse Rate 81 95 91 Respiratory Rate 17 Blood Pressure 108/48 L Pulse Oximetry 100 Oxygen Delivery Oxygen Flow Rate 09/29/21 09:13 09/29/21 09:41 09/29/21 09:43 Temperature Pulse Rate 68 68 Respiratory Rate Blood Pressure Pulse Oximetry 100 Oxygen Delivery Nasal Cannula Oxygen Flow Rate 5 09/29/21 14:35 09/29/21 08:00 09/29/21 08:00 Temperature 36.1 C L Pulse Rate 98 96 Respiratory Rate 18 Blood Pressure 111/63 Pulse Oximetry 91 96 Oxygen Delivery Nasal Cannula Oxygen Flow Rate 2 09/29/21 12:00
--- NOTE | 2021-09-29 16:25 | PM.CNCAR ---
Assessment and Plan Assessment and plan (1) Ischemic cardiomyopathy: Code(s): I25.5 - Ischemic cardiomyopathy Status: Acute Assessment and Plan: Moderate to severe LV systolic dysfunction. LifeVest placed by his outside primary clinical lab clerk for reduction sudden cardiac risk. It is somehow reported defibrillation delivered by LifeVest, however, interrogation we received from [facility] indicates no such defibrillation administered by the device although persistent atrial fibrillation with a great deal of noise artifact. Review of telemetry does not reveal sustained or nonsustained ventricular tachycardia. Consider changing metoprolol Toprol XL but will defer to his primary clinical lab clerk as an outpatient. Will sign off for now. Please do not hesitate to contact us with any additional questions or concerns. (2) Atrial fibrillation, chronic: Code(s): I48.20 - Chronic atrial fibrillation, unspecified Status: Acute Assessment and Plan: Stable, heart rate reasonably controlled. He remains on amiodarone 200 mg daily, metoprolol tartrate 100 mg twice daily, and warfarin with goal INR of 2-3. (3) CHF (congestive heart failure): Qualifiers: Heart failure type: systolic Heart failure chronicity: chronic Qualified Code(s): I50.22 - Chronic systolic (congestive) heart failure Code(s): I50.9 - Heart failure, unspecified Status: Acute Assessment and Plan: Reasonably compensated. Continue oral diuretics and hemodialysis for volume management. (4) Coronary artery disease: Code(s): I25.10 - Atherosclerotic heart disease of [place] coronary artery without angina pectoris Status: Acute Assessment and Plan: As above, continue supportive medical therapy. Continue statin therapy. (5) Altered mental status: Code(s): R41.82 - Altered mental status, unspecified Status: Acute Assessment and Plan: For, management per primary service. (6) Chronic anticoagulation: Code(s): Z79.01 - USP (current) use of anticoagulants Status: Acute (7) End-stage renal disease on hemodialysis: Code(s): N18.6 - End stage renal disease; Z99.2 - Dependence on renal dialysis Status: Chronic Assessment and Plan: Volume management with hemodialysis per Nephrology. Continue Lasix 40 mg p.o. daily. History of Present Illness History of Present Illness Consult date/time: Date of service: 09/29/21 16:25 Cardiology consultation at the request of Dr. Walsh for life vest discharge. Requesting physician: Fabián Walsh MD Reason For Visit: Altered mental status/chronic renal failure dialys Narrative: Patient is a rather complicated 70-year-old male with a past medical history significant for persistent atrial fibrillation on anticoagulation with warfarin, history ischemic cardiomyopathy with chronic heart failure with reduced ejection fraction, severe CAD, end-stage renal disease on hemodialysis, SHARON, hypertension, hyperlipidemia was brought to the emergency department by EMS secondary to altered mental status. He had a recent admission 09/23/2021 for reported syncopal episode after hemodialysis. He has been wearing a LifeVest prescribed by his primary clinical lab clerk from [facility]. Per review of the electronic record there is notation his life vest did not fire. There were no noted significant ventricular arrhythmias on telemetry as documented and repeat echocardiogram revealed EF 30-35%. He was then discharged to his senior care 09/25/2021. Apparently after presentation he was alert and oriented but a bit confused at times. He had missed dialysis as a result. He complains of feeling fatigued, admits he notes he is confused at times. He states his LifeVest shocked him ?approximately 3 hours ago?. Is noted he is off telemetry for time this morning and nursing indicates they are uncertain if it occurred during that time. Th
[2021-09-29] MEDS: WARFARIN (*PBKC) 2.5 MG TABLET PO (18:21)
[2021-09-29] MEDS: ROSUVASTATIN 10 MG TABLET 20 MG PO (20:27)
[2021-09-29] MEDS: NORTRIPTYLINE HCL 25 MG CAPSULE PO (20:28)
[2021-09-29] MEDS: GABAPENTIN 300 MG CAPSULE 600 MG PO (20:28)
--- NOTE | 2021-09-29 23:11 | PCRCNOTE ---
Approximately 25 minutes after being placed on CPAP, pt took CPAP off and called out. Pt states that the CPAP is not his machine and that he wore his machine last night. Per charting, pt wore the same CPAP last night. RT confirmed with RT who cared for pt last night that pt wore the hospital CPAP (not his own) last night. Pt's CPAP machine is not here. Pt is adamant that he wore his machine last night and does not want our machine. After further discussion, pt said that he would use our machine tonight but not now because I'm busy. Pt is currently on 2.5L NC. Nurse will call when pt is ready to go back to bed so we can try to get him back on CPAP. Both nurse (Rhiannon) and charge nurse (Tawnya) are aware of situation.
[2021-09-30] VITALS (29 sets, daily range): BP systolic 90–140; BP diastolic 42–79; PULSE 60–100; RESP 18–20; TEMP 35.9–37.2; O2SAT 93–100
--- NOTE | 2021-09-30 02:05 | PC.NURSE ---
went into pt room to do rounding and found pt off cpap, placed pt back on 2.5 L of oxygen and is satting 93%. pt states that he does not want his mask to be moved off of the bed because he might use it later
--- NOTE | 2021-09-30 02:20 | PCRCNOTE ---
Nurse reports pt took off CPAP and said he doesn't want to wear it right now. Nurse placed pt back on 2.5L NC (home setting). CPAP on standby. Pt resting comfortably on 2.5L NC.
[2021-09-30 06:40] LABS: Hematocrit 29.9 % (42.0-52.0); Hemoglobin 9.6 g/dL (14.0-18.0); Mean Corpuscular HGB Conc 32.1 g/dl (32-36); Mean Corpuscular Hemoglobin 32.8 pg (26-34); Mean Platelet Volume 8.5 fl (7.4-10.4); Platelet Count Result 318 k/mm3 (150-375); Red Blood Count 2.93 M/mm3 (4.6-6.20); Red Cell Distribution Width 17.3 % (11.5-14.5); White Blood Count 11.7 K/mm3 (4.5-10.0)
[2021-09-30 06:51] LABS: INR 1.9; Prothrombin Time 21.1 Seconds (11.1-14.7)
[2021-09-30 06:56] LABS: Anion Gap 10 mmol/L (8-16); Blood Urea Nitrogen 28 mg/dL (9-20); Calcium 8.4 mg/dL (8.4-10.2); Carbon Dioxide 29 mmol/L (22-30); Chloride 92 mmol/L (98-107); Estimated CRCL calculation 13 ml/min; Estimated Glomerular Filt Rate 10; Glucose 110 mg/dL (65-110); Potassium 4.5 mmol/L (3.4-5.0); Sodium 131 mmol/L (137-145)
[2021-09-30] MEDS: ASPIRIN 81 MG ENTERIC TABLET PO (08:36)
[2021-09-30] MEDS: MIDODRINE HCL 2.5 MG TABLET 5 MG PO ×3 (08:36→17:44)
[2021-09-30] MEDS: FUROSEMIDE 40 MG TABLET PO (08:39)
[2021-09-30] MEDS: METOPROLOL TARTRATE 50 MG TAB 100 MG PO ×2 (08:39→20:10)
[2021-09-30] MEDS: DOCUSATE SODIUM 100 MG CAPSULE PO ×2 (08:39→17:44)
[2021-09-30] MEDS: AMIODARONE HCL 200 MG TABLET PO (08:39)
[2021-09-30] MEDS: FOLIC ACID 0.4 MG TABLET PO (08:40)
[2021-09-30] MEDS: GABAPENTIN 300 MG CAPSULE PO ×2 (08:40→17:46)
[2021-09-30] MEDS: LIDOCAINE 5% PATCH 1 PATCH TOPICAL (08:40)
[2021-09-30] MEDS: SODIUM CHLORIDE 1 GM TABLET PO ×3 (08:40→17:47)
--- NOTE | 2021-09-30 10:46 | PM.IMPN ---
Progress Note: A&P Assessment and Plan (1) Confusion: Code(s): R41.0 - Disorientation, unspecified Status: Acute Assessment and Plan: Resolved (2) Wound of left foot: Code(s): S91.302A - Unspecified open wound, left foot, initial encounter Status: Acute Assessment and Plan: Chronic according to the patient. Wound nurse consulted. Will likely need amputation after looking at the toe. ABIs have been ordered but was nondiagnostic. X-ray did not reveal any osteomyelitis. Ortho Consul pending (3) Cellulitis of fifth toe, left: Code(s): L03.032 - Cellulitis of left toe Status: Acute Assessment and Plan: Likely dry gangrene. Will titrate antibiotics time, Ortho consult (4) End-stage renal disease on hemodialysis: Code(s): N18.6 - End stage renal disease; Z99.2 - Dependence on renal dialysis Status: Chronic Assessment and Plan: Nephrology consulted for hemodialysis. (5) Chronic hyponatremia: Code(s): E87.1 - Hypo-osmolality and hyponatremia Status: Acute Assessment and Plan: Stable on review of previous labs. Continue sodium tablets. (6) Chronic anemia: Code(s): D64.9 - Anemia, unspecified Status: Chronic Assessment and Plan: Stable on review of previous labs. MCV is elevated, check B12 and folate. (7) Diet-controlled type 2 diabetes mellitus: Code(s): E11.9 - Type 2 diabetes mellitus without complications Status: Acute Assessment and Plan: Random glucose today is 128. Check hemoglobin A1c. (8) Ischemic cardiomyopathy: Code(s): I25.5 - Ischemic cardiomyopathy Status: Acute Assessment and Plan: Patient is edematous with crackles on exam. Appears in no respiratory distress, however. Due for dialysis today. Continue p.o. furosemide. 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 Continue warfarin. Subjective Date/time seen: 09/30/21 10:46 The patient is doing well. No new complaints today. Exam Narrative: General: Chronically ill-appearing gentleman sitting up in bed. Nontoxic in appearance. Weight: 99.6 kg. BMI: 33.4. HEENT: PERRL, EOMI. Sclerae anicteric. Conjunctiva mildly injected. Moist mucous membranes. Fair dentition. Neck: Supple. No JVD. Respiratory: Respirations are even and nonlabored. Scattered bibasilar crackles. Occasional cough. Cardiovascular: Regular rate and rhythm with S1-S2. Systolic murmur at the upper sternal border. Gastrointestinal: Abdomen is soft, protuberant, nontender, and nondistended with positive bowel sounds. Skin: Warm and dry. Scattered bruising and excoriations of the upper extremities. Feet are dry and scaly. Toenails are thickened and yellow. Left 5th toe with dry gangrene starting of the DIP joint. There is a sub cm circular punched-out lesion near the left 3rd MTP joint with red base and scattered yellow sloughing around the perimeter. All toes on the left foot are erythematous and blanchable. No significant warmth or drainage noted. Patient reports mild tenderness with palpation of this area. Extremities: No cyanosis or clubbing. 2 to 3+ pitting edema up to the thighs. Right upper extremity AV fistula with palpable thrill and bruit. Right pedal pulse intact. Difficult to palpate left pedal pulse. Left posterior tibialis pulse palpable. Neurological: Alert and oriented x4. Cranial nerves 2-12 are grossly intact. Speech is clear. No facial asymmetry. Residual, mild right-sided weakness from previous stroke. N Psychiatric: Pleasant and cooperative. Depressed mood and flat/tearful affect. Objective Data Vital Signs Vital Signs: Vital Signs - 24 hr 09/29/21 14:35 09/29/21 12:00 09/29/21 16:00 Temperature 97 F L Pulse Rate 98 96 103 H Respiratory Rate 18 Blood Pr
--- NOTE | 2021-09-30 13:00 | P.PNNP_ITS ---
Progress Note: A&P Assessment and Plan (1) End stage renal disease: Code(s): N18.6 - End stage renal disease Status: Chronic Assessment and Plan: * HD today and continue M// dialysis schedule * follow electrolytes, volume status, and clearance (2) Altered mental status: Code(s): R41.82 - Altered mental status, unspecified Status: Acute Assessment and Plan: * clinically better at this time * perhaps due due narcotics +/- muscle relaxers * follow mentation (3) Hyponatremia: Code(s): E87.1 - Hypo-osmolality and hyponatremia Status: Chronic Assessment and Plan: * due to renal failure, excessive fluid gains, and free water intake * dialysis will compensate to some degree * apparently also on salt tabs (which may be contributing to his fluid retention issues) * will do a trial of holding salt tabs.... * follow trend (4) Congestive heart failure: Code(s): I50.9 - Heart failure, unspecified Status: Chronic Assessment and Plan: * chronic issue at baseline * chronically elevated BNP at baseline (due to chronic volume overload) * significant fluid gains inbetween dialysis treatment * several hospitalization for this problem as well (5) Hypertension: Code(s): I10 - Essential (primary) hypertension Status: Chronic Assessment and Plan: * reasonable control at this time * follow trend of hemodynamics (6) Wound of left foot: Code(s): S91.302A - Unspecified open wound, left foot, initial encounter Status: Acute Assessment and Plan: * chronic per patient * possible cellulitis present as well * left fifth toe discoloration noted - possible gangrene? * would care nurse as well as Orthopedics consulted (7) Anemia: Code(s): D64.9 - Anemia, unspecified Status: Acute Assessment and Plan: * due to ESRD * Epogen with HD * follow trend of H/H Will continue to follow. Subjective Date/time seen: 09/30/21 13:00 Patient tolerating dialysis treatment at the time of my visit (seen on HD at ~ 12:45PM); mental status seems to be back to baseline at this time; no other acute issues/events overnight or earlier this morning; feels reasonably well. Exam Narrative: General: somewhat ill appearing Caucaisan male in NAD Heart: normal S1 and S2; no rub Lungs: decreased at bases Abdomen: soft, nontender, nondistended, positive bowel sounds Extremities: no cyanosis or clubbing; 2+ edema Skin: left foot erythematous; left fifth toe discolored Objective Data Vital Signs Vital Signs: Vital Signs Temp Pulse Resp BP Pulse Ox O2 Del Method O2 Flow Rate 09/30/21 13:00 36.3 C L 92 18 132/64 09/30/21 12:45 93 124/61 09/30/21 12:30 89 113/70 09/30/21 12:15 85 96/42 L 09/30/21 12:00 92 119/61 09/30/21 11:45 89 131/76 09/30/21 08:00 86 20 98 Nasal Cannula 2.5 09/30/21 11:30 86 116/58 L 09/30/21 11:15 92 99/51 L 09/30/21 11:00 86 107/56 L 09/30/21 10:45 87 91/53 L 09/30/21 10:30 71 94/44 L 09/30/21 10:15 86 90/54 L 09/30/21 10:00 60 102/55 L 09/30/21 09:45 84 132/53 L 09/30/21 09:30 91 132/71 09/30/21 09:20 36.4 C
--- NOTE | 2021-09-30 13:00 | PM.PNNEP ---
Progress Note: A&P Assessment and Plan (1) End stage renal disease: Code(s): N18.6 - End stage renal disease Status: Chronic Assessment and Plan: HD today and continue M// dialysis schedule follow electrolytes, volume status, and clearance (2) Altered mental status: Code(s): R41.82 - Altered mental status, unspecified Status: Acute Assessment and Plan: clinically better at this time perhaps due due narcotics +/- muscle relaxers follow mentation (3) Hyponatremia: Code(s): E87.1 - Hypo-osmolality and hyponatremia Status: Chronic Assessment and Plan: due to renal failure, excessive fluid gains, and free water intake dialysis will compensate to some degree apparently also on salt tabs (which may be contributing to his fluid retention issues) will do a trial of holding salt tabs.... follow trend (4) Congestive heart failure: Code(s): I50.9 - Heart failure, unspecified Status: Chronic Assessment and Plan: chronic issue at baseline chronically elevated BNP at baseline (due to chronic volume overload) significant fluid gains inbetween dialysis treatment several hospitalization for this problem as well (5) Hypertension: Code(s): I10 - Essential (primary) hypertension Status: Chronic Assessment and Plan: reasonable control at this time follow trend of hemodynamics (6) Wound of left foot: Code(s): S91.302A - Unspecified open wound, left foot, initial encounter Status: Acute Assessment and Plan: chronic per patient possible cellulitis present as well left fifth toe discoloration noted - possible gangrene? would care nurse as well as Orthopedics consulted (7) Anemia: Code(s): D64.9 - Anemia, unspecified Status: Acute Assessment and Plan: due to ESRD Epogen with HD follow trend of H/H Will continue to follow. Subjective Date/time seen: 09/30/21 13:00 Patient tolerating dialysis treatment at the time of my visit (seen on HD at ~ 12:45PM); mental status seems to be back to baseline at this time; no other acute issues/events overnight or earlier this morning; feels reasonably well. Exam Narrative: General: somewhat ill appearing Caucaisan male in NAD Heart: normal S1 and S2; no rub Lungs: decreased at bases Abdomen: soft, nontender, nondistended, positive bowel sounds Extremities: no cyanosis or clubbing; 2+ edema Skin: left foot erythematous; left fifth toe discolored Objective Data Vital Signs Vital Signs: Vital Signs Temp Pulse Resp BP Pulse Ox O2 Del Method O2 Flow Rate 09/30/21 13:00 36.3 C L 92 18 132/64 09/30/21 12:45 93 124/61 09/30/21 12:30 89 113/70 09/30/21 12:15 85 96/42 L 09/30/21 12:00 92 119/61 09/30/21 11:45 89 131/76 09/30/21 08:00 86 20 98 Nasal Cannula 2.5 09/30/21 11:30 86 116/58 L 09/30/21 11:15 92 99/51 L 09/30/21 11:00 86 107/56 L 09/30/21 10:45 87 91/53 L 09/30/21 10:30 71 94/44 L 09/30/21 10:15 86 90/54 L 09/30/21 10:00 60 102/55 L 09/30/21 09:45 84 132/53 L 09/30/21 09:30 91 132/71 09/30/21 09:20 36.4 C L 87 20 140/69 09/30/21 09:20 2.5 09/30/21 08:39 100 09/30/21 08:39 100 09/30/21 06:00 36.1 C L 85 20 113/60 98 09/30/21 04:00 90 09/30/21 02:09 93 Nasal Cannula 2.5 09/29/21 23:45 Autopap 09/30/21 00:00 91 09/29/21 20:00 96 09/29/21 20:00 98 Nasal Cannula 2.5 09/29/21 22:40 91 98 Autopap 09/29/21 22:00 36.4 C 90 16 109/69 99 09/29/21 20:28 102 H 09/29/21 20:11 103 H 95 Nasal Cannula 2.5 09/29/21 16:00 103 H 09/29/21 14:35 36.1 C L 98 18 111/63 91 Intake/Output Intake/Output: Intake & Output 09/27/21 09/28/21 09/29/21 09/30/21 23:59
[2021-09-30] MEDS: WARFARIN (*PBKC) 2.5 MG TABLET PO (17:48)
[2021-09-30] MEDS: GABAPENTIN 300 MG CAPSULE 600 MG PO (20:10)
[2021-09-30] MEDS: NORTRIPTYLINE HCL 25 MG CAPSULE PO (20:10)
[2021-09-30] MEDS: ROSUVASTATIN 10 MG TABLET 20 MG PO (20:10)
--- NOTE | 2021-09-30 21:26 | PC.NURSE ---
at 1930 patient was extremely adamant and aggressive towards nursing staff about getting up out of bed to use the bathroom. nursing staff reinforced that the pt was on bedrest and should not get up. after about 20 minutes of nursing staff being in room with the pt, pt agreed to get back into bed but refused to use the bedpan to go to the bathroom. pt on all alarms and being rounded on hourly
--- NOTE | 2021-09-30 22:23 | PCCCNOTE ---
On 09/30/21, the student, Sierra Abbott, provided care and completed [facility] documentation on this patient. I have reviewed the student's documentation and agree with the findings.
[2021-10-01] VITALS (13 sets, daily range): BP systolic 103–117; BP diastolic 54–65; PULSE 70–97; RESP 14–18; TEMP 36.2–36.9; O2SAT 94–100
[2021-10-01 08:04] LABS: Prothrombin Time 22.1 Seconds (11.1-14.7)
[2021-10-01] MEDS: DOCUSATE SODIUM 100 MG CAPSULE PO ×2 (08:51→17:33)
[2021-10-01] MEDS: ASPIRIN 81 MG ENTERIC TABLET PO (08:51)
[2021-10-01] MEDS: SODIUM CHLORIDE 1 GM TABLET PO ×3 (08:51→17:33)
[2021-10-01] MEDS: AMIODARONE HCL 200 MG TABLET PO (08:51)
[2021-10-01] MEDS: GABAPENTIN 300 MG CAPSULE PO ×2 (08:51→17:34)
[2021-10-01] MEDS: FUROSEMIDE 40 MG TABLET PO (08:52)
[2021-10-01] MEDS: FOLIC ACID 0.4 MG TABLET PO (08:52)
[2021-10-01] MEDS: LIDOCAINE 5% PATCH 1 PATCH TOPICAL (08:52)
[2021-10-01] MEDS: MIDODRINE HCL 2.5 MG TABLET 5 MG PO ×3 (08:52→17:33)
[2021-10-01] MEDS: METOPROLOL TARTRATE 50 MG TAB 100 MG PO ×2 (08:53→20:03)
--- NOTE | 2021-10-01 10:39 | PM.IMPN ---
Progress Note: A&P Assessment and Plan (1) Confusion: Code(s): R41.0 - Disorientation, unspecified Status: Acute Assessment and Plan: Resolved (2) Wound of left foot: Code(s): S91.302A - Unspecified open wound, left foot, initial encounter Status: Acute Assessment and Plan: Chronic according to the patient. Wound nurse consulted. Will likely need amputation after looking at the toe. ABIs have been ordered but was nondiagnostic. X-ray did not reveal any osteomyelitis. Ortho Consul pending (3) Cellulitis of fifth toe, left: Code(s): L03.032 - Cellulitis of left toe Status: Acute Assessment and Plan: Likely dry gangrene. Will titrate antibiotics time, Ortho consult (4) End-stage renal disease on hemodialysis: Code(s): N18.6 - End stage renal disease; Z99.2 - Dependence on renal dialysis Status: Chronic Assessment and Plan: Nephrology consulted for hemodialysis. (5) Chronic hyponatremia: Code(s): E87.1 - Hypo-osmolality and hyponatremia Status: Acute Assessment and Plan: Stable on review of previous labs. Continue sodium tablets. (6) Chronic anemia: Code(s): D64.9 - Anemia, unspecified Status: Chronic Assessment and Plan: Stable on review of previous labs. MCV is elevated, check B12 and folate. (7) Diet-controlled type 2 diabetes mellitus: Code(s): E11.9 - Type 2 diabetes mellitus without complications Status: Acute Assessment and Plan: Random glucose today is 128. Check hemoglobin A1c. (8) Ischemic cardiomyopathy: Code(s): I25.5 - Ischemic cardiomyopathy Status: Acute Assessment and Plan: Patient is edematous with crackles on exam. Appears in no respiratory distress, however. Due for dialysis today. Continue p.o. furosemide. 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 Continue warfarin. Subjective Date/time seen: 10/01/21 10:39 No new complaints Exam Narrative: General: Chronically ill-appearing gentleman sitting up in bed. Nontoxic in appearance. Weight: 99.6 kg. BMI: 33.4. HEENT: PERRL, EOMI. Sclerae anicteric. Conjunctiva mildly injected. Moist mucous membranes. Fair dentition. Neck: Supple. No JVD. Respiratory: Respirations are even and nonlabored. Scattered bibasilar crackles. Occasional cough. Cardiovascular: Regular rate and rhythm with S1-S2. Systolic murmur at the upper sternal border. Gastrointestinal: Abdomen is soft, protuberant, nontender, and nondistended with positive bowel sounds. Skin: Warm and dry. Scattered bruising and excoriations of the upper extremities. Feet are dry and scaly. Toenails are thickened and yellow. Left 5th toe with dry gangrene starting of the DIP joint. There is a sub cm circular punched-out lesion near the left 3rd MTP joint with red base and scattered yellow sloughing around the perimeter. All toes on the left foot are erythematous and blanchable. No significant warmth or drainage noted. Patient reports mild tenderness with palpation of this area. Extremities: No cyanosis or clubbing. 2 to 3+ pitting edema up to the thighs. Right upper extremity AV fistula with palpable thrill and bruit. Right pedal pulse intact. Difficult to palpate left pedal pulse. Left posterior tibialis pulse palpable. Neurological: Alert and oriented x4. Cranial nerves 2-12 are grossly intact. Speech is clear. No facial asymmetry. Residual, mild right-sided weakness from previous stroke. N Psychiatric: Pleasant and cooperative. Depressed mood and flat/tearful affect. Objective Data Vital Signs Vital Signs: Vital Signs - 24 hr 09/30/21 10:45 09/30/21 11:00 09/30/21 11:15 Temperature Pulse Rate 87 86 92 Respiratory Rate Blood Pressure 91/53 L 107/56 L 99/51 L Pulse Oximetr
--- NOTE | 2021-10-01 12:09 | P.PNNP_ITS ---
Progress Note: A&P Assessment and Plan (1) End stage renal disease: Code(s): N18.6 - End stage renal disease Status: Chronic Assessment and Plan: * HD yesterday and continue M// dialysis schedule * follow electrolytes, volume status, and clearance (2) Altered mental status: Code(s): R41.82 - Altered mental status, unspecified Status: Acute Assessment and Plan: * clinically better at this time * perhaps due due narcotics +/- muscle relaxers * follow mentation (3) Hyponatremia: Code(s): E87.1 - Hypo-osmolality and hyponatremia Status: Chronic Assessment and Plan: * due to renal failure, excessive fluid gains, and free water intake * dialysis will compensate to some degree * apparently also on salt tabs (which may be contributing to his fluid retention issues) * d trial of holding salt tabs.... * follow trend (4) Congestive heart failure: Code(s): I50.9 - Heart failure, unspecified Status: Chronic Assessment and Plan: * chronic issue at baseline * chronically elevated BNP at baseline (due to chronic volume overload) * significant fluid gains inbetween dialysis treatment * several hospitalization for this problem as well (5) Hypertension: Code(s): I10 - Essential (primary) hypertension Status: Chronic Assessment and Plan: * reasonable control at this time * follow trend of hemodynamics (6) Wound of left foot: Code(s): S91.302A - Unspecified open wound, left foot, initial encounter Status: Acute Assessment and Plan: * chronic per patient * possible cellulitis present as well * left fifth toe discoloration noted - possible gangrene? * would care nurse as well as Orthopedics consulted (7) Anemia: Code(s): D64.9 - Anemia, unspecified Status: Acute Assessment and Plan: * due to ESRD * Epogen with HD * follow trend of H/H Will continue to follow. Subjective Date/time seen: 10/01/21 12:09 Tolerated dialysis treatment yesterday without any issue or problems; no new events overnight or earlier this AM; has not been seen by Orthopedics as of yet with regard left foot/toe wounds; no apparent distress noted. Exam Narrative: General: somewhat ill appearing Caucaisan male in NAD Heart: normal S1 and S2; no rub Lungs: decreased at bases Abdomen: soft, nontender, nondistended, positive bowel sounds Extremities: no cyanosis or clubbing; 2+ edema Skin: left foot erythematous; left fifth toe discolored Objective Data Vital Signs Vital Signs: Vital Signs Temp Pulse Resp BP Pulse Ox O2 Del Method O2 Flow Rate 10/01/21 08:00 96 16 94 Nasal Cannula 2 10/01/21 08:53 96 10/01/21 08:51 96 10/01/21 06:00 36.2 C L 70 16 116/65 94 10/01/21 04:00 93 09/30/21 23:41 98 99 Nasal Cannula 2.5 10/01/21 00:00 97 09/30/21 20:00 95 09/30/21 22:00 37.2 C 93 20 133/77 100 09/30/21 20:00 100 Nasal Cannula 2.5 09/30/21 20:10 98 09/30/21 16:00 86 09/30/21 14:28 98 94 Nasal Cannula 2.5 Intake/Output Intake/Output: Intake & Output 09/28/21 09/29/21 09/30/21 10/01/21 23:59 23:59
--- NOTE | 2021-10-01 12:09 | PM.PNNEP ---
Progress Note: A&P Assessment and Plan (1) End stage renal disease: Code(s): N18.6 - End stage renal disease Status: Chronic Assessment and Plan: HD yesterday and continue M// dialysis schedule follow electrolytes, volume status, and clearance (2) Altered mental status: Code(s): R41.82 - Altered mental status, unspecified Status: Acute Assessment and Plan: clinically better at this time perhaps due due narcotics +/- muscle relaxers follow mentation (3) Hyponatremia: Code(s): E87.1 - Hypo-osmolality and hyponatremia Status: Chronic Assessment and Plan: due to renal failure, excessive fluid gains, and free water intake dialysis will compensate to some degree apparently also on salt tabs (which may be contributing to his fluid retention issues) d trial of holding salt tabs.... follow trend (4) Congestive heart failure: Code(s): I50.9 - Heart failure, unspecified Status: Chronic Assessment and Plan: chronic issue at baseline chronically elevated BNP at baseline (due to chronic volume overload) significant fluid gains inbetween dialysis treatment several hospitalization for this problem as well (5) Hypertension: Code(s): I10 - Essential (primary) hypertension Status: Chronic Assessment and Plan: reasonable control at this time follow trend of hemodynamics (6) Wound of left foot: Code(s): S91.302A - Unspecified open wound, left foot, initial encounter Status: Acute Assessment and Plan: chronic per patient possible cellulitis present as well left fifth toe discoloration noted - possible gangrene? would care nurse as well as Orthopedics consulted (7) Anemia: Code(s): D64.9 - Anemia, unspecified Status: Acute Assessment and Plan: due to ESRD Epogen with HD follow trend of H/H Will continue to follow. Subjective Date/time seen: 10/01/21 12:09 Tolerated dialysis treatment yesterday without any issue or problems; no new events overnight or earlier this AM; has not been seen by Orthopedics as of yet with regard left foot/toe wounds; no apparent distress noted. Exam Narrative: General: somewhat ill appearing Caucaisan male in NAD Heart: normal S1 and S2; no rub Lungs: decreased at bases Abdomen: soft, nontender, nondistended, positive bowel sounds Extremities: no cyanosis or clubbing; 2+ edema Skin: left foot erythematous; left fifth toe discolored Objective Data Vital Signs Vital Signs: Vital Signs Temp Pulse Resp BP Pulse Ox O2 Del Method O2 Flow Rate 10/01/21 08:00 96 16 94 Nasal Cannula 2 10/01/21 08:53 96 10/01/21 08:51 96 10/01/21 06:00 36.2 C L 70 16 116/65 94 10/01/21 04:00 93 09/30/21 23:41 98 99 Nasal Cannula 2.5 10/01/21 00:00 97 09/30/21 20:00 95 09/30/21 22:00 37.2 C 93 20 133/77 100 09/30/21 20:00 100 Nasal Cannula 2.5 09/30/21 20:10 98 09/30/21 16:00 86 09/30/21 14:28 98 94 Nasal Cannula 2.5 Intake/Output Intake/Output: Intake & Output 09/28/21 09/29/21 09/30/21 10/01/21 23:59 23:59 23:59 23:59 Intake Total 390 1680 1670 250 Output Total 4120 4000 0 Balance -3730 1680 -2330 250 Meds/Results Medications: Active Medications Generic Name Dose Route Start Last Admin Trade Name Celsa PRN Reason Stop Dose Admin Amiodarone HCl 200 mg 09/29/21 09:00 10/01/21 08:51 Amiodarone Hcl 200 Mg Tablet PO [address] [facility] Administration Aspirin 81 mg 09/29/21 09:00 10/01/21 08:51 Aspirin 81 Mg Enteric Tablet PO [address] [facility] Administration Docusate Sodium 100 mg 09/29/21 09:00 10/01/21 08:51 Docusate Sodium 100 Mg Capsule PO [address] [facility] Administration Folic Acid 0.4 mg 09/29/21 09:00 10/01/21 08:52 Folic Acid 0.4 Mg Tablet PO 0.[address] [facility] Administr
--- NOTE | 2021-10-01 15:29 | PM.CNGS ---
Assessment and Plan Assessment and plan (1) Wound of left foot: Code(s): S91.302A - Unspecified open wound, left foot, initial encounter Status: Acute Assessment and Plan: This is most likely secondary to severe peripheral vascular disease. (See ABIs/arterial ultrasound studies). In view of his other arterial disease I suspect the patient has significant stenosis of either his common femoral or popliteal arteries on the left. He may be a candidate for further vascular evaluation and intervention. At this time it appears that he has dry gangrene all of his left 5th toe and part of his 4th. As recommended by the wound care nurses I would recommend conservative management with dressing changes and then follow-up with the vascular surgeon prior to any amputation. He may have difficulty healing an amputation site. Once his urgent cardiovascular issues are solved here he could have outpatient follow-up and possible further investigation by a vascular surgeon. I would recommend this. Should his primary user experience developer do peripheral vascular work ---- that may be a good way to get him in quickly. (as some user experience developer now do peripheral vascular work also). The user experience developer then could get him hooked up with a vascular surgeon or orthopedic surgeon at their facility to subsequently perform any amputation that is necessary once adequate inflow has been established to allow for good healing for the surgery. Thank you for asking to participate in this pleasant patient's care please call if you have further questions. For now recommend dressing changes as recommended by the wound care nurses and that we place sterile 2 by 2's between the 4th and 5th and 3rd and 4th toes on the left foot to prevent maceration. (2) CHF (congestive heart failure): Qualifiers: Heart failure chronicity: chronic Heart failure type: systolic Qualified Code(s): I50.22 - Chronic systolic (congestive) heart failure Code(s): I50.9 - Heart failure, unspecified Status: Acute Assessment and Plan: Apparently fairly severe. Ejection fraction 30-35% on recent echo. See cardiology notes. This probably contributes to poor inflow to his foot. (3) Atrial fibrillation, chronic: Code(s): I48.20 - Chronic atrial fibrillation, unspecified Status: Acute Assessment and Plan: On Coumadin so this will have to be considered when planning any interventions. (4) Hypertension: Code(s): I10 - Essential (primary) hypertension Status: Chronic Assessment and Plan: Continue Meds (5) Hyperlipidemia: Code(s): E78.5 - Hyperlipidemia, unspecified Status: Chronic (6) End stage renal disease: Code(s): N18.6 - End stage renal disease Status: Chronic Assessment and Plan: On Dialysis (7) Obstructive sleep apnea on CPAP: Code(s): G47.33 - Obstructive sleep apnea (adult) (pediatric); Z99.89 - Dependence on other enabling machines and devices Status: Chronic Assessment and Plan: CPAP machine is in his room. 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 History of Present Illness Consult details Consult date: 10/01/21 Reason for consult: wound care (Pt has dry gangreen of his left 4th and 5th toes) Requesting physician: Fabián Walsh MD Narrative: Pt does c/o of pain on his left foot/toes. he states he also had a recent admission elsewhere for cellulitis . Admitted now with cardiac issues, but I was requested to consult regarding these changes and his dark toes. Doppler arterial studies and DEANN's reveal poor arterial inflow to the left lower leg. Plain x-rays show no osteomyelitis. The wound care nurses have seen him and I agree with their assessments. Review of
[2021-10-01] MEDS: WARFARIN (*PBKC) 2.5 MG TABLET PO (17:34)
[2021-10-01] MEDS: GABAPENTIN 300 MG CAPSULE 600 MG PO (20:03)
[2021-10-01] MEDS: NORTRIPTYLINE HCL 25 MG CAPSULE PO (20:03)
[2021-10-01] MEDS: ROSUVASTATIN 10 MG TABLET 20 MG PO (20:03)
[2021-10-02] VITALS (14 sets, daily range): BP systolic 106–149; BP diastolic 75–78; PULSE 78–106; RESP 16–18; TEMP 36.4–36.8; O2SAT 92–100
[2021-10-02 07:20] LABS: INR 2.3; Prothrombin Time 24.2 Seconds (11.1-14.7)
[2021-10-02] MEDS: METOPROLOL TARTRATE 50 MG TAB 100 MG PO ×2 (08:40→20:31)
[2021-10-02] MEDS: AMIODARONE HCL 200 MG TABLET PO (08:41)
[2021-10-02] MEDS: GABAPENTIN 300 MG CAPSULE PO ×2 (08:41→18:10)
[2021-10-02] MEDS: FUROSEMIDE 40 MG TABLET PO (08:41)
[2021-10-02] MEDS: SODIUM CHLORIDE 1 GM TABLET PO ×3 (08:41→18:10)
[2021-10-02] MEDS: ASPIRIN 81 MG ENTERIC TABLET PO (08:41)
[2021-10-02] MEDS: DOCUSATE SODIUM 100 MG CAPSULE PO ×2 (08:42→18:09)
[2021-10-02] MEDS: FOLIC ACID 0.4 MG TABLET PO (08:42)
[2021-10-02] MEDS: MIDODRINE HCL 2.5 MG TABLET 5 MG PO ×3 (08:42→18:09)
[2021-10-02] MEDS: LIDOCAINE 5% PATCH 1 PATCH TOPICAL (08:42)
--- NOTE | 2021-10-02 11:31 | PM.IMPN ---
Progress Note: A&P Assessment and Plan (1) Confusion: Code(s): R41.0 - Disorientation, unspecified Status: Acute Assessment and Plan: Resolved (2) Wound of left foot: Code(s): S91.302A - Unspecified open wound, left foot, initial encounter Status: Acute Assessment and Plan: Chronic according to the patient. Wound nurse consulted. Will likely need amputation after looking at the toe. ABIs have been ordered but was nondiagnostic. X-ray did not reveal any osteomyelitis. Surgical consult recommended outpatient cardiac follow-up for evaluation of left lower extremity vascular status prior to possibly doing amputation. This can be set up as an outpatient (3) Cellulitis of fifth toe, left: Code(s): L03.032 - Cellulitis of left toe Status: Acute Assessment and Plan: Likely dry gangrene. Will titrate antibiotics time, Ortho consult (4) End-stage renal disease on hemodialysis: Code(s): N18.6 - End stage renal disease; Z99.2 - Dependence on renal dialysis Status: Chronic Assessment and Plan: Nephrology consulted for hemodialysis. (5) Chronic hyponatremia: Code(s): E87.1 - Hypo-osmolality and hyponatremia Status: Acute Assessment and Plan: Stable on review of previous labs. Continue sodium tablets. (6) Chronic anemia: Code(s): D64.9 - Anemia, unspecified Status: Chronic Assessment and Plan: Stable on review of previous labs. MCV is elevated, check B12 and folate. (7) Diet-controlled type 2 diabetes mellitus: Code(s): E11.9 - Type 2 diabetes mellitus without complications Status: Acute Assessment and Plan: Random glucose today is 128. Check hemoglobin A1c. (8) Ischemic cardiomyopathy: Code(s): I25.5 - Ischemic cardiomyopathy Status: Acute Assessment and Plan: Chronic and stable currently. 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 Continue warfarin. Plan Evaluation for snf placement Subjective Date/time seen: 10/02/21 11:31 Feels about the same, reports he is having worsening weakness and would like to be placed in skilled facility. Exam Narrative: General: Chronically ill-appearing gentleman sitting up in bed. Nontoxic in appearance. Weight: 99.6 kg. BMI: 33.4. HEENT: PERRL, EOMI. Sclerae anicteric. Conjunctiva mildly injected. Moist mucous membranes. Fair dentition. Neck: Supple. No JVD. Respiratory: Respirations are even and nonlabored. Scattered bibasilar crackles. Occasional cough. Cardiovascular: Regular rate and rhythm with S1-S2. Systolic murmur at the upper sternal border. Gastrointestinal: Abdomen is soft, protuberant, nontender, and nondistended with positive bowel sounds. Skin: Warm and dry. Scattered bruising and excoriations of the upper extremities. Feet are dry and scaly. Toenails are thickened and yellow. Left 5th toe with dry gangrene starting of the DIP joint. There is a sub cm circular punched-out lesion near the left 3rd MTP joint with red base and scattered yellow sloughing around the perimeter. All toes on the left foot are erythematous and blanchable. No significant warmth or drainage noted. Patient reports mild tenderness with palpation of this area. Extremities: No cyanosis or clubbing. 2 to 3+ pitting edema up to the thighs. Right upper extremity AV fistula with palpable thrill and bruit. Right pedal pulse intact. Difficult to palpate left pedal pulse. Left posterior tibialis pulse palpable. Neurological: Alert and oriented x4. Cranial nerves 2-12 are grossly intact. Speech is clear. No facial asymmetry. Residual, mild right-sided weakness from previous stroke. N Psychiatric: Pleasant and cooperative. Depressed mood and flat/tearful affect. Objective Data Vital Signs Vital Signs:
--- NOTE | 2021-10-02 12:21 | P.PNNP_ITS ---
Progress Note: A&P Assessment and Plan (1) End stage renal disease: Code(s): N18.6 - End stage renal disease Status: Chronic Assessment and Plan: * HD tomorrow and continue M/W/ dialysis schedule * follow electrolytes, volume status, and clearance (2) Altered mental status: Code(s): R41.82 - Altered mental status, unspecified Status: Acute Assessment and Plan: * clinically better at this time * perhaps due due narcotics +/- muscle relaxers * hold these medications * follow mentation (3) Hyponatremia: Code(s): E87.1 - Hypo-osmolality and hyponatremia Status: Chronic Assessment and Plan: * due to renal failure, excessive fluid gains, and free water intake * dialysis will compensate to some degree * apparently also on salt tabs (which may be contributing to his fluid retention issues) * d trial of holding salt tabs.... * follow trend (4) Congestive heart failure: Code(s): I50.9 - Heart failure, unspecified Status: Chronic Assessment and Plan: * chronic issue at baseline * chronically elevated BNP at baseline (due to chronic volume overload) * significant fluid gains inbetween dialysis treatment * several hospitalization for this problem as well (5) Hypertension: Code(s): I10 - Essential (primary) hypertension Status: Chronic Assessment and Plan: * reasonable control at this time * follow trend of hemodynamics (6) Wound of left foot: Code(s): S91.302A - Unspecified open wound, left foot, initial encounter Status: Acute Assessment and Plan: * chronic per patient * possible cellulitis present as well * left fifth toe discoloration noted - possible gangrene? * would care nurse as well as Orthopedics consulted (7) Anemia: Code(s): D64.9 - Anemia, unspecified Status: Acute Assessment and Plan: * due to ESRD * Epogen with HD * follow trend of H/H Will continue to follow. Subjective Date/time seen: 10/02/21 12:21 No major complaints voiced at this time; still states he feels sleepy and tired all the time; otherwise, no apparent distress to report; no issues overnight or earlier this AM. Exam Narrative: General: somewhat ill appearing Caucaisan male in NAD Heart: normal S1 and S2; no rub Lungs: decreased at bases Abdomen: soft, nontender, nondistended, positive bowel sounds Extremities: no cyanosis or clubbing; 2+ edema Skin: left foot erythematous; left fifth toe discolored Objective Data Vital Signs Vital Signs: Vital Signs Temp Pulse Resp BP Pulse Ox O2 Del Method O2 Flow Rate 10/02/21 08:00 106 H 17 92 Nasal Cannula 2 10/02/21 08:41 106 H 10/02/21 08:40 106 H 10/02/21 02:50 78 97 Autopap 10/02/21 05:50 36.8 C 106 H 17 106/76 92 10/02/21 04:00 96 10/02/21 01:09 86 97 Autopap 10/02/21 00:00 87 10/01/21 20:00 91 10/01/21 22:28 84 97 Autopap 10/01/21 20:00 97 Nasal Cannula 2.5 10/01/21 21:41 36.9 C 88 18 117/54 L 97 10/01/21 20:03 92 Intake/Output Intake/Output: Intake & Output 09/29/21 09/30/21 10/01/21 10/02/21 23:59 23:59 23:59 23:59
--- NOTE | 2021-10-02 12:21 | PM.PNNEP ---
Progress Note: A&P Assessment and Plan (1) End stage renal disease: Code(s): N18.6 - End stage renal disease Status: Chronic Assessment and Plan: HD tomorrow and continue M/W/ dialysis schedule follow electrolytes, volume status, and clearance (2) Altered mental status: Code(s): R41.82 - Altered mental status, unspecified Status: Acute Assessment and Plan: clinically better at this time perhaps due due narcotics +/- muscle relaxers hold these medications follow mentation (3) Hyponatremia: Code(s): E87.1 - Hypo-osmolality and hyponatremia Status: Chronic Assessment and Plan: due to renal failure, excessive fluid gains, and free water intake dialysis will compensate to some degree apparently also on salt tabs (which may be contributing to his fluid retention issues) d trial of holding salt tabs.... follow trend (4) Congestive heart failure: Code(s): I50.9 - Heart failure, unspecified Status: Chronic Assessment and Plan: chronic issue at baseline chronically elevated BNP at baseline (due to chronic volume overload) significant fluid gains inbetween dialysis treatment several hospitalization for this problem as well (5) Hypertension: Code(s): I10 - Essential (primary) hypertension Status: Chronic Assessment and Plan: reasonable control at this time follow trend of hemodynamics (6) Wound of left foot: Code(s): S91.302A - Unspecified open wound, left foot, initial encounter Status: Acute Assessment and Plan: chronic per patient possible cellulitis present as well left fifth toe discoloration noted - possible gangrene? would care nurse as well as Orthopedics consulted (7) Anemia: Code(s): D64.9 - Anemia, unspecified Status: Acute Assessment and Plan: due to ESRD Epogen with HD follow trend of H/H Will continue to follow. Subjective Date/time seen: 10/02/21 12:21 No major complaints voiced at this time; still states he feels sleepy and tired all the time; otherwise, no apparent distress to report; no issues overnight or earlier this AM. Exam Narrative: General: somewhat ill appearing Caucaisan male in NAD Heart: normal S1 and S2; no rub Lungs: decreased at bases Abdomen: soft, nontender, nondistended, positive bowel sounds Extremities: no cyanosis or clubbing; 2+ edema Skin: left foot erythematous; left fifth toe discolored Objective Data Vital Signs Vital Signs: Vital Signs Temp Pulse Resp BP Pulse Ox O2 Del Method O2 Flow Rate 10/02/21 08:00 106 H 17 92 Nasal Cannula 2 10/02/21 08:41 106 H 10/02/21 08:40 106 H 10/02/21 02:50 78 97 Autopap 10/02/21 05:50 36.8 C 106 H 17 106/76 92 10/02/21 04:00 96 10/02/21 01:09 86 97 Autopap 10/02/21 00:00 87 10/01/21 20:00 91 10/01/21 22:28 84 97 Autopap 10/01/21 20:00 97 Nasal Cannula 2.5 10/01/21 21:41 36.9 C 88 18 117/54 L 97 10/01/21 20:03 92 Intake/Output Intake/Output: Intake & Output 09/29/21 09/30/21 10/01/21 10/02/21 23:59 23:59 23:59 23:59 Intake Total 1680 1670 1400 604 Output Total 4000 0 Balance 1680 -2330 1400 604 Meds/Results Medications: Active Medications Generic Name Dose Route Start Last Admin Trade Name Collinsq PRN Reason Stop Dose Admin Amiodarone HCl 200 mg 09/29/21 09:00 10/02/21 08:41 Amiodarone Hcl 200 Mg Tablet PO 200 mg DAILY LUDWIG Administration Aspirin 81 mg 09/29/21 09:00 10/02/21 08:41 Aspirin 81 Mg Enteric Tablet PO 81 mg DAILY LUDWIG Administration Docusate Sodium 100 mg 09/29/21 09:00 10/02/21 18:09 Docusate Sodium 100 Mg Capsule PO 100 mg BID LUDWIG Administration Folic Acid 0.4 mg 09/29/21 09:00 10/02/21 08:42 Folic Acid 0.4 Mg Tablet PO 0.4 mg DAILY LUDWIG Administration Furosemide 40
[2021-10-02 12:42] LABS: EDCOVIDSCREEN Negative (Negative)
--- NOTE | 2021-10-02 15:52 | PM.DS ---
DS: Admitting Diagnosis Discharge Date 10/02/21 Admitting Diagnosis ams, dry gangrene left foot DS: Discharge Diagnosis Discharge Diagnosis (1) Confusion: Code(s): R41.0 - Disorientation, unspecified Status: Acute Assessment and Plan: Resolved (2) Wound of left foot: Code(s): S91.302A - Unspecified open wound, left foot, initial encounter Status: Acute Assessment and Plan: Chronic according to the patient. Wound nurse consulted. Will likely need amputation after looking at the toe. ABIs have been ordered but was nondiagnostic. X-ray did not reveal any osteomyelitis. Surgical consult recommended outpatient cardiac follow-up for evaluation of left lower extremity vascular status prior to possibly doing amputation. This can be set up as an outpatient (3) Cellulitis of fifth toe, left: Code(s): L03.032 - Cellulitis of left toe Status: Acute Assessment and Plan: Likely dry gangrene. Will titrate antibiotics time, Ortho consult (4) End-stage renal disease on hemodialysis: Code(s): N18.6 - End stage renal disease; Z99.2 - Dependence on renal dialysis Status: Chronic Assessment and Plan: Nephrology consulted for hemodialysis. (5) Chronic hyponatremia: Code(s): E87.1 - Hypo-osmolality and hyponatremia Status: Acute Assessment and Plan: Stable on review of previous labs. Continue sodium tablets. (6) Chronic anemia: Code(s): D64.9 - Anemia, unspecified Status: Chronic Assessment and Plan: Stable on review of previous labs. MCV is elevated, check B12 and folate. (7) Diet-controlled type 2 diabetes mellitus: Code(s): E11.9 - Type 2 diabetes mellitus without complications Status: Acute Assessment and Plan: Random glucose today is 128. Check hemoglobin A1c. (8) Ischemic cardiomyopathy: Code(s): I25.5 - Ischemic cardiomyopathy Status: Acute Assessment and Plan: Chronic and stable currently. (9) Chronic anticoagulation: Code(s): Z79.01 - [facility]ent[facility] (current) use of anticoagulants Status: Acute Assessment and Plan: INR is therapeutic at 2.2. Continue warfarin. 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 Time Spent with Patient Time attestation: Total time spent providing and/or coordinating discharge services: Exam Narrative: General: Chronically ill-appearing gentleman sitting up in bed. Nontoxic in appearance. Weight: 99.6 kg. BMI: 33.4. HEENT: PERRL, EOMI. Sclerae anicteric. Conjunctiva mildly injected. Moist mucous membranes. Fair dentition. Neck: Supple. No JVD. Respiratory: Respirations are even and nonlabored. Scattered bibasilar crackles. Occasional cough. Cardiovascular: Regular rate and rhythm with S1-S2. Systolic murmur at the upper sternal border. Gastrointestinal: Abdomen is soft, protuberant, nontender, and nondistended with positive bowel sounds. Skin: Warm and dry. Scattered bruising and excoriations of the upper extremities. Feet are dry and scaly. Toenails are thickened and yellow. Left 5th toe with dry gangrene starting of the DIP joint. There is a sub cm circular punched-out lesion near the left 3rd MTP joint with red base and scattered yellow sloughing around the perimeter. All toes on the left foot are erythematous and blanchable. No significant warmth or drainage noted. Patient reports mild tenderness with palpation of this area. Extremities: No cyanosis or clubbing. 2 to 3+ pitting edema up to the thighs. Right upper extremity AV fistula with palpable thrill
[2021-10-02] MEDS: WARFARIN (*PBKC) 2.5 MG TABLET PO (18:10)
--- NOTE | 2021-10-02 18:22 | PM.PNGS ---
Progress Note: A&P Assessment and Plan (1) Wound of left foot: Code(s): S91.302A - Unspecified open wound, left foot, initial encounter Status: Acute Assessment and Plan: This is most likely secondary to severe peripheral vascular disease and his now quiescent diabetes.. (See ABIs/arterial ultrasound studies). In view of his other arterial disease I suspect the patient has significant stenosis of either his common femoral or popliteal arteries on the left. He may be a candidate for further vascular evaluation and intervention. At this time it appears that he has dry gangrene of his left 5th toe and part of his 4th. Also noted today is a superficial ulceration on the dorsum of his foot just proximal to the base of his 3rd toe on the left. As recommended by the wound care nurses I would recommend conservative management with dressing changes and then follow-up with the vascular surgeon prior to any amputation. He may have difficulty healing an amputation site. Once his more urgent cardiovascular issues are solved here he could have outpatient follow-up and possible further investigation by a vascular surgeon or motor pool clerk that does peripheral vascular disease also. I would recommend this. Should his primary motor pool clerk do peripheral vascular work ---- that may be a good way to get him in quickly. (as some motor pool clerk now do peripheral vascular work also). The motor pool clerk then could get him hooked up with a vascular surgeon or orthopedic surgeon at their facility to subsequently perform any amputation that is necessary once adequate inflow has been established to allow for good healing for the surgery. Thank you for asking to participate in this pleasant patient's care please call if you have further questions. For now recommend dressing changes as recommended by the wound care nurses and that we place sterile 2 by 2's between the 4th and 5th and 3rd and 4th toes on the left foot to prevent maceration. (2) CHF (congestive heart failure): Qualifiers: Heart failure chronicity: chronic Heart failure type: systolic Qualified Code(s): I50.22 - Chronic systolic (congestive) heart failure Code(s): I50.9 - Heart failure, unspecified Status: Acute Assessment and Plan: Apparently fairly severe. Ejection fraction 30-35% on recent echo. See cardiology notes. This probably contributes to poor inflow to his foot. (3) Atrial fibrillation, chronic: Code(s): I48.20 - Chronic atrial fibrillation, unspecified Status: Acute Assessment and Plan: On Coumadin so this will have to be considered when planning any interventions. (4) Hypertension: Code(s): I10 - Essential (primary) hypertension Status: Chronic Assessment and Plan: Continue Meds (5) Hyperlipidemia: Code(s): E78.5 - Hyperlipidemia, unspecified Status: Chronic (6) End stage renal disease: Code(s): N18.6 - End stage renal disease Status: Chronic Assessment and Plan: On Dialysis (7) Obstructive sleep apnea on CPAP: Code(s): G47.33 - Obstructive sleep apnea (adult) (pediatric); Z99.89 - Dependence on other enabling machines and devices Status: Chronic Assessment and Plan: CPAP machine is in his room. (8) Current use of usp anticoagulation: Code(s): Z79.01 - care home (current) use of anticoagulants Status: Acute Assessment and Plan: On Coumadin so this will have to be considered when planning any interventions. Subjective Subjective Date/Time Seen: 10/02/21 15:22 patient sitting up sleeping in the chair when I entered the room. He states he still has some pain at his 4th and 5th left toes but was wearing a stocking slipper and putting pressure on his heel. He states he had had a surgery at the base of his 3rd toe where there is an apparent superficial ulcer at this time. This surgery was more than several years ag
[2021-10-02] MEDS: ROSUVASTATIN 10 MG TABLET 20 MG PO (20:31)
[2021-10-02] MEDS: GABAPENTIN 300 MG CAPSULE 600 MG PO (20:31)
[2021-10-02] MEDS: NORTRIPTYLINE HCL 25 MG CAPSULE PO (20:31)
== END 2021-10-02 20:45 | DRG 291 ==
LOC: ANHED 09:34 → ANH3MEDSUR 11:33
PROVIDERS: Internal Medicine; Internal Medicine Nephrology; Physician Assistant; Admitting Provider Chiropractor; Emergency Provider Emergency Medicine; Visit Provider Chiropractor
DX: I13.2 Hypertensive heart and chronic kidney disease with heart failure and with stage 5 chronic kidney disease, or end stage renal disease (principal); N18.6 End stage renal disease; E11.52 Type 2 diabetes mellitus with diabetic peripheral angiopathy with gangrene; I96 Gangrene, not elsewhere classified; E87.1 Hypo-osmolality and hyponatremia; J96.11 Chronic respiratory failure with hypoxia; I48.20 Chronic atrial fibrillation, unspecified; I50.22 Chronic systolic (congestive) heart failure; Z20.822 Contact with and (suspected) exposure to COVID-19; L03.032 Cellulitis of left toe; I25.5 Ischemic cardiomyopathy; D63.1 Anemia in chronic kidney disease; E11.22 Type 2 diabetes mellitus with diabetic chronic kidney disease; S91.302A Unspecified open wound, left foot, initial encounter; G47.33 Obstructive sleep apnea (adult) (pediatric); N25.0 Renal osteodystrophy; I71.4 Abdominal aortic aneurysm, without rupture; I25.10 Atherosclerotic heart disease of native coronary artery without angina pectoris; R41.82 Altered mental status, unspecified; T40.2X5A Adverse effect of other opioids, initial encounter; E78.5 Hyperlipidemia, unspecified; Z99.2 Dependence on renal dialysis; Z79.01 Long term (current) use of anticoagulants; Z79.82 Long term (current) use of aspirin; Z86.711 Personal history of pulmonary embolism; Z86.718 Personal history of other venous thrombosis and embolism; Z86.73 Personal history of transient ischemic attack (TIA), and cerebral infarction without residual deficits; Z99.81 Dependence on supplemental oxygen
CPT/HCPCS: 36415; 36600; 51701; 70450; 71045; 73620; 80048; 80053; 81001; 82375; 82607; 82746; 82805; 82948; 83050; 83605; 83735; 84100; 84443; 85025; 85027; 85610; 85730; 87040; 87340; 87426; 93005; 93922; 96365; 96367; 96375; 96376; 97110; 97161; 97530; 99285; A9270; C9803; G0257; G0378; J0743; J2543; J7030; Q4081; U0003; U0005

== ENCOUNTER 2021-10-06 09:59 | Inpatient (IN) | payer MEDICARE, SELFPAY ==
[2021-10-06] VITALS (34 sets, daily range): BP systolic 71–128; BP diastolic 44–85; PULSE 81–103; RESP 10–34; TEMP 36.2–36.6; O2SAT 89–100; BMI 27.2
--- NOTE | ~2021-10-06 | US_ITS ---
EXAMINATION: US carotid duplex BI DATE: 10/07/2021 13:05 INDICATION: Syncope. TECHNIQUE: Grayscale, color Doppler, and pulsed Doppler images of the cervical carotid arteries were obtained. The degree of vessel stenosis is placed in one of the following categories: normal, <50%, 5 0-69%, >=70% but less than near-occlusion, near-occlusion, or total occlusion. Note that percent sten osis relative to normal distal artery lumen diameter is indirectly measured from velocity measurement s as described by Constantine, et al. Radiology 2003; 229:[id number]. Notes: Normal: Peak systolic velocity <125 centimeters/sec and no plaque <50%. Peak systolic velocity <125 ( EDV <40; ICA/CCA PSV ratio <2.0; used these factors only a tandem lesions or low cardiac output or co ntralateral disease) 50-69 %: PSV 125-230 (EDV 40-100; ratio 2-4) >= 70% but less than near occlusion: PSV greater than 230 (EDV > 100; ratio> 4.0) Near Occlusion: PSV that is variable; markedly narrowed lumen Occlusion: Absent flow on color/spectral Doppler and no lumen on zepeda scale. COMPARISON: None. FINDINGS: RIGHT: The right common carotid artery (CCA) peak systolic velocity (PSV) is 74 cm/s. The right internal car otid artery (ICA) PSV is 89 cm/s. The right ICA end-diastolic velocity (EDV) is 16 cm/s. The right IC A/CCA PSV ratio is 0.8. The external carotid artery (ECA) PSV is 72 cm/s. The right vertebral artery is not visualized. LEFT: The left CCA PSV is 53 cm/s. The left ICA PSV is 106 cm/s. The left ICA EDV is 13 cm/s. The left ICA/ CCA PSV ratio is 1.8. The ECA PSV is 111 cm/s. There is antegrade flow in the left vertebral artery. IMPRESSION: 1. Less than 50% stenosis in the right internal carotid artery by sonographic criteria. 2. Less than 50% stenosis in the left internal carotid artery by sonographic criteria. 3: No flow identified in the right vertebral artery, possibly occluded. Reviewed, dictated and finalized at location B. IMPRESSION: 1. Less than 50% stenosis in the right internal carotid artery by sonographic c riteria. 2. Less than 50% stenosis in the left internal carotid artery by sonographic cr iteria. 3: No flow identified in the right vertebral artery, possibly occluded.
--- NOTE | ~2021-10-06 | CT_ITS ---
EXAMINATION: CT brain wo con DATE: 10/06/2021 11:53 INDICATION: Syncope. TECHNIQUE: Computed tomography (CT) of the head was performed without intravenous contrast. The mA wa s adjusted according to patient size. Iterative reconstruction technique was employed. The dose-lengt h product was 605.33 mGy-cm. COMPARISON: Head CT 09/28/2021 FINDINGS: There are old infarcts in the cerebellum bilaterally. There is an old infarct in right occi pital lobe. There is old infarct in right thalamus. There are old infarct involving the left basal ga nglia. There are old infarcts in the bilateral frontal lobes and parietal lobes. There is no intracra nial hemorrhage, acute infarction, or abnormal intracranial mass lesion. The ventricles are normal in size. The orbits are normal. The paranasal sinuses are clear. The mastoid air cells are normal. IMPRESSION: 1. Multiple old infarcts in the brain. Reviewed, dictated and finalized at location A.
--- NOTE | ~2021-10-06 | XR_ITS ---
XR chest 1V portable 10/06/2021 12:07 Indication: Chest pain Procedure: AP portable chest Comparison: Comparison to multiple prior studies sequentially, with oldest reviewed study dated 05/2020. Findings: Cardiomegaly with diffuse bilateral airspace disease. I lateral pleural effusions. No pneum othorax. Impression: 1: Cardiomegaly with diffuse bilateral airspace disease which may represent edema or less likely pneu monia. 2: Bilateral pleural effusions. Reviewed, dictated and finalized at location B. Impression: 1: Cardiomegaly with diffuse bilateral airspace disease which may represent james ma or less likely pneumonia. 2: Bilateral pleural effusions.
--- NOTE | 2021-10-06 10:25 | ED.RECABL ---
HPI - Recheck/Abnormal Lab/Rx General Chief Complaint: Recheck/Abnormal Lab/Rx Stated Complaint: abn labs, weak, edema, jaundiced. Time Seen by Provider: 10/06/21 10:10 Source: patient Mode of arrival: ambulatory History of Present Illness HPI narrative: 71 year old male presents to ER from [facility] via EMS. Patient told he was sent her for abnormal labs. Patient was not told which ones. Past medical history significant for chronic kidney disease on dialysis, DM, left foot wound for which he was just discharge from this facility on the . Patient denies any concerns at this time. No chest pain, sob, cough, altered mental status, fevers, bodyaches. Related Data Home Medications Medication Instructions Recorded Confirmed amiodarone 200 mg tablet 200 mg PO DAILY 04/24/20 10/06/21 albuterol sulfate 90 mcg/actuation 2 inh inhalation Q4H PRN Wheezing 09/23/21 10/06/21 aerosol inhaler aspirin 81 mg tablet,delayed 81 mg PO DAILY 09/23/21 10/06/21 release baclofen 5 mg tablet 5 mg PO Q6H PRN Muscle Spasm 09/23/21 10/06/21 bisacodyl 10 mg rectal suppository 10 mg RECTAL DAILY PRN Constipation 09/23/21 10/06/21 docusate sodium 100 mg capsule 100 mg PO Q12H 09/23/21 10/06/21 folic acid 400 mcg tablet 400 mcg PO DAILY 09/23/21 10/06/21 furosemide 40 mg tablet 40 mg PO Q12H 09/23/21 10/06/21 gabapentin 300 mg capsule 300 mg PO BID 09/23/21 10/06/21 gabapentin 600 mg tablet 600 mg PO HS 09/23/21 10/06/21 lidocaine 5 % topical patch 1 patch topical DAILY 09/23/21 10/06/21 (Lidoderm) magnesium citrate 300 ml PO DAILY PRN Constipation 09/23/21 10/06/21 metoprolol tartrate 100 mg tablet 100 mg PO Q12H 09/23/21 10/06/21 miconazole nitrate 2 % topical 1 applic topical BID PRN Itching 09/23/21 10/06/21 cream (Antifungal Cream (miconazole)) midodrine 5 mg tablet 5 mg PO TID 09/23/21 10/06/21 nitroglycerin 0.4 mg sublingual 0.4 mg sublingual Q5M PRN Chest 09/23/21 10/06/21 tablet Pain nortriptyline 25 mg capsule 25 mg PO HS 09/23/21 10/06/21 rosuvastatin 20 mg tablet 20 mg PO HS 09/23/21 10/06/21 sodium chloride 1 gram tablet 1,000 mg PO TIDWM 09/23/21 10/06/21 warfarin 2.5 mg tablet 2.5 mg PO QPM 09/23/21 10/06/21 magnesium hydroxide 400 mg/5 mL 30 ml PO HS PRN Constipation 09/28/21 10/06/21 oral suspension (Milk of Magnesia) sodium phosphates 19 gram-7 118 ml RECTAL DAILY PRN 09/28/21 10/06/21 gram/118 mL enema (Fleet Enema) Constipation triamcinolone acetonide 0.1 % 1 applic topical Q12H 09/28/21 10/06/21 topical cream doxycycline hyclate 100 mg tablet 100 mg PO DAILY 10/06/21 10/06/21 povidone-iodine 10 % topical 1 applic topical Q12H 10/06/21 10/06/21 solution (Betadine) vitamin B complex-vitamin C-folic 1 tablet PO DAILY 10/06/21 10/06/21 acid 0.8 mg tablet (Kalina-Zaria) Allergies Allergy/AdvReac Type Severity Reaction Status Date / Time atorvastatin Allergy Unknown Rash Verified 10/06/21 10:13 morphine Allergy Unknown Verified 10/06/21 10:13 Penicillins Allergy Unknown Verified 10/06/21 10:13 Review of Systems Constitutional: Constitutional: Reports as per HPI Eyes: Eyes: Reports no additional eye complaints ENT: Reports system reviewed and no additional complaints, except as documented Cardiovascular: Cardiovascular: Reports no additional cardiovascular complaints Respiratory: Respiratory: Reports no additional respiratory complaints Gastrointestinal: Gastrointestinal: Reports no additional gastrointestinal complaints PMFSH Past Medical History Medical History Abdominal aortic aneurysm Stable mid abdominal aortic saccular aneurysm measuring 4.2 cm on imaging dated 01/21/2020. Bacterial infection due to Proteus mirabilis (10/2018) Secondary to infected dialysis catheter. C. 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 Chronic anemia Chronic anticoagulation Chronic hypo
[2021-10-06 11:26] LABS: Basophils Percent Auto 0.2 % (0.2-1.2); Eosinophils Absolute Auto 0.1 K/mm3 (0-0.3); Eosinophils Percent Auto 0.4 % (0-4.4); Hematocrit 27.6 % (42.0-52.0); Hemoglobin 8.8 g/dL (14.0-18.0); Immature Granulocyte Absolute 0.11 K/mm3 (0.00-0.031); Immature Granulocyte Percent A 0.8 % (0-0.5); Lymphocytes Absolute Auto 0.81 K/mm3 (0.9-3.2); Mean Corpuscular HGB Conc 31.9 g/dl (32-36); Mean Corpuscular Hemoglobin 31.5 pg (26-34); Mean Corpuscular Volume 98.9 fl (80-100); Mean Platelet Volume 8.9 fl (7.4-10.4); Monocytes Absolute Auto 1.2 K/mm3 (0.1-0.6); Monocytes Percent Auto 9.1 % (2.6-8.5); Neutrophils Absolute Auto 11.2 K/mm3 (1.3-6.7); Neutrophils Percent Auto 83.5 % (45.5-73.1); Platelet Count Result 390 k/mm3 (150-375); Red Blood Count 2.79 M/mm3 (4.6-6.20); Red Cell Distribution Width 16.4 % (11.5-14.5); White Blood Count 13.5 K/mm3 (4.5-10.0)
--- NOTE | 2021-10-06 11:28 | ECG_ITS ---
Measurements Intervals [place] Rate: 88 P: MD: 0 QRS: 75 QRSD: 107 T: 141 QT: 399 QTc: 483 Interpretive Statements ATRIAL FIBRILLATION ST DEVIATION AND MODERATE T-WAVE ABNORMALITY, CONSIDER LATERAL ISCHEMIA [-0.1+ mV T WAVE IN I/aVL/V5/V6] COMPARED TO ECG 09/28/2021 07:23:30 NO SIGNIFICANT CHANGES Electronically Signed On 10-06-2021 20:36:07 CDT by Vicki Jennings M.D.
[2021-10-06 11:39] LABS: Alanine Aminotransferase 19 U/L (6-50); Albumin Level 3.2 g/dL (3.5-5.1); Alkaline Phosphatase 142 U/L (38-126); Anion Gap 10 mmol/L (8-16); Aspartate Amino Transferase 35 U/L (17-59); Bilirubin,Total 0.5 mg/dL (0.2-1.3); Blood Urea Nitrogen 38 mg/dL (9-20); Calcium 8.7 mg/dL (8.4-10.2); Carbon Dioxide 30 mmol/L (22-30); Chloride 89 mmol/L (98-107); Estimated CRCL calculation 14 ml/min; Estimated Glomerular Filt Rate 11; Glucose 149 mg/dL (65-110); INR 4.1; Prothrombin Time 38.3 Seconds (11.1-14.7); Sodium 129 mmol/L (137-145)
[2021-10-06 11:40] LABS: Partial Thromboplastin Time 76.6 SECONDS (22.3-36.8)
[2021-10-06] MEDS: SODIUM CHLORIDE 0.9% IV 500 ML (12:10)
[2021-10-06 13:25] LABS: Base Excess ABG 2.5 mEq/l (+/-2.0); HCO3 ABG 27.2 mEq/l (22.0-26.0); PCO2 ABG 42.4 mmHg (35.0-45.0); PO2 ABG 41.2 mmHg (80.0-100.0)
[2021-10-06 13:26] LABS: Oxygen Content ABG 9.3 %vol (16.0-22.0); Oxygen Saturation ABG 77.7 % (95.0-100.0); Total Hemoglobin 9.4 g/dL (12.0-18.0)
[2021-10-06 13:27] LABS: Device NASAL CANNULA; Modified Allen's Test Pass; Oxyhemoglobin 69.9 % THb (90.0-100.0); PO2 FiO2 Ratio Arterial Blood 1.47 %; Site Drawn LEFT RADIAL
[2021-10-06 13:28] LABS: pH ABG 7.425 (7.350-7.450)
--- NOTE | 2021-10-06 16:35 | PM.CNCAR ---
History of Present Illness History of Present Illness Consult date/time: 10/06/21 16:35 Reason For Visit: Chest pain/Syncopal episode Narrative: David Saleh is a 71-year-old male whom I was asked to see at the request of CLAIRE Amaro [facility] Past Medical History Medical History (Updated 09/29/21 @ 16:34 by Félix Santacruz MD) Abdominal aortic aneurysm Stable mid abdominal aortic saccular aneurysm measuring 4.2 cm on imaging dated 01/21/2020. Bacterial infection due to Proteus mirabilis (10/2018) Secondary to infected dialysis catheter. C. 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 Chronic anemia Chronic anticoagulation Chronic hyponatremia Chronic respiratory failure with hypoxia, on home oxygen therapy On 2 L nasal cannula p.r.n.. Congestive heart failure Echo in Dec 2019 showed EF 55-60%, Grade 3 DD and HK apical septum and inferoapical beyer. Moderate Pulm HTN (48) Coronary artery disease Cardiac catheterization in March 2018 doing showed total occlusion of the obtuse and left main with severe disease in the LAD in which she was transferred to [facility] for urgent 2 vessel CABG. Current use of fci anticoagulation On warfarin for stroke prophylaxis given atrial fibrillation. Depression with anxiety Diet-controlled type 2 diabetes mellitus Hemoglobin A1c was 6.8% in August 2020. End-stage renal disease on hemodialysis Dialysis on Sunday, Sunday, and Sunday. Erythropoietin deficiency anemia Essential hypertension History of Pseudomonas pneumonia Hyperlipidemia Hypertension Ischemic cardiomyopathy Ejection fraction as low as 35% with improvement on recent echocardiogram as above. 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 Pulmonary embolism Small RUL and RLL by CT in Dec 2019 Renal osteodystrophy STEMI (ST elevation myocardial infarction) 03/2018 Surgical History Surgical History Hemodialysis access site with arteriovenous graft Right forearm placed in early 2018; right upper arm fistula 2018 History of appendectomy History of cardiac catheterization History of percutaneous endoscopic gastrostomy Subsequently removed. History of tonsillectomy History of tracheostomy History of two vessel coronary artery bypass graft Family History Family History Mother Acute myocardial infarction Father Acute myocardial infarction Grandparent Acute myocardial infarction Cerebrovascular accident Other Heart disease Social History Social History Social History: Surrogate decision maker: Patt Gonzalez (sibling), Carrie Saleh (daughter). Code status: Full code. Smoking packs per day: 1 Smoking cigarettes per day: 20.0 Years smoked: 59 Smoking pack-years: 59.00 Smoking status: Current every day smoker Tobacco type: cigarettes Second hand tobacco smoke exposure: No Alcohol intake: former Substance use: never Substance use type: does not use Additional living arrangements comments: Resides with his in [place]. They have 2 grown children. Additional occupation/education comments: Retired from the [employer]. Spiritual care concerns: No Meds Home Medications and Allergies Home Medications Medication Instructions Recorded Confirmed Type amiodarone 200 mg tablet 200 mg PO DAILY 04/24/20 10/06/21 History albuterol sulfate 90 mcg/actuation 2 inh inhalation Q4H PRN Wheezing 09/23/21 10/06/21 History aerosol inhaler aspirin 81 mg tablet,delayed 81 mg PO DAILY 09/23/21 10/06/21 History release baclofen 5 mg tablet 5 mg PO Q6H PRN Muscle Spas
--- NOTE | 2021-10-06 16:45 | PM.IMHP ---
H&P: HPI History of Present Illness Date/Time: 10/06/21 16:45 Chief Complaint: Abnormal lab work. Narrative: This is a 71-year-old male with multiple medical problems including paroxysmal atrial fibrillation on long-term anticoagulation, diastolic congestive heart failure, coronary artery disease, end-stage renal disease on hemodialysis, obstructive sleep apnea, hypertension, and hyperlipidemia who presented to the emergency department via EMS for evaluation of abnormal labs drawn at dialysis yesterday. The patient does not know what labs were abnormal and those drawn today on arrival to the ER seemed to be pretty consistent with his baseline labs. It is my understanding that he was going to be discharged from the hospital as he had an appointment with a vascular surgeon for evaluation of dry gangrene of the left 5th toe however he apparently had an unresponsive episode in the ER and I was called to admit him for a syncopal evaluation. This will be his 3rd admission to the hospital since 09/23/2021 under similar circumstances. He does not recall feeling poorly before this unresponsive episode though he does report having frequent episodes of lightheadedness and dizziness, mainly associated with position changes and bending forward. He also does not recall telling the nurse practitioner in the ER that he was having chest pain when he came to. It is my understanding that his blood pressure was in the 70 systolic when this event occurred and that he has ongoing issues with orthostatic hypotension for which he takes midodrine. At the time my evaluation he has no complaints but it is noted that he did have an asymptomatic run of ventricular tachycardia early this afternoon. He was not wearing his LifeVest at that time as it is apparently policy to remove that during hospitalization. Review of Systems Review of Systems: Twelve systems were reviewed. Reports feeling weaker yesterday than normal. Endorses frequent lightheadedness/dizziness, mainly with position changes. He is due for dialysis tomorrow, complains of mild orthopnea at this time. He denies fever, chills, and sweats. No cold or flu symptoms. He denies chest pain and pleuritic pain. No palpitations. No vomiting or diarrhea. Except as documented, all other systems were reviewed and are negative. [facility] Past Medical History Medical History Abdominal aortic aneurysm Stable mid abdominal aortic saccular aneurysm measuring 4.2 cm on imaging dated 01/21/2020. Bacterial infection due to Proteus mirabilis (10/2018) Secondary to infected dialysis catheter. C. 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 Chronic anemia Chronic anticoagulation Chronic hyponatremia Chronic respiratory failure with hypoxia, on home oxygen therapy On 2 L nasal cannula p.r.n.. Congestive heart failure Echo in Dec 2019 showed EF 55-60%, Grade 3 DD and HK apical septum and inferoapical beyer. Moderate Pulm HTN (48) Coronary artery disease Cardiac catheterization in March 2018 doing showed total occlusion of the obtuse and left main with severe disease in the LAD in which she was transferred to [facility] for urgent 2 vessel CABG. 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 Depression with anxiety Diet-controlled type 2 diabetes mellitus Hemoglobin A1c was 6.8% in August 2020. End-stage renal disease on hemodialysis Dialysis on Sunday, Sunday, and Sunday. Erythropoietin deficiency anemia Essential hypertension History of Pseudomonas pneumonia Hyperlipidemia Hypertension Ischemic cardiomyopathy Ejection fraction as low as 35% with improvement on recent echocardiogram as above. Lower extremity deep venous thrombosis MRSA infection Obstructive sleep apnea on CPAP Paroxysmal atrial fibrillation Peripheral vascular disease Pseudoaneurysm Ch
--- NOTE | 2021-10-06 17:19 | PM.CNCAR ---
Assessment and Plan Assessment and plan (1) Chest pain: Code(s): R07.9 - Chest pain, unspecified Status: Acute Assessment and Plan: Apparent chest pain after syncopal episode today in a patient with known CAD. Unable to provide any history Troponins are mildly elevated but chronically so, likely due to his chronic kidney disease No significant ischemic changes by EKG Continue medical therapy of CAD with aspirin, metoprolol, rosuvastatin (2) Syncope: Code(s): R55 - Syncope and collapse Status: Acute Assessment and Plan: Another episode of syncope today. No arrhythmias reported. Weakness and confusion at his [place] Was very hypotensive in the emergency room so syncope likely secondary to low blood pressure. Will order blood cultures as pt may be septic Patient takes midodrine so low blood pressure is likely a chronic problem for him (3) Coronary artery disease: Code(s): I25.10 - Atherosclerotic heart disease of jackson coronary artery without angina pectoris Status: Acute Assessment and Plan: History of CAD, likely stable. (4) Paroxysmal atrial fibrillation: Code(s): I48.0 - Paroxysmal atrial fibrillation Status: Chronic Assessment and Plan: History of AFib, previously paroxysmal, may be persistent now. Anticoagulated with warfarin; INR is mildly elevated today. Hold warfarin today Daily INRs Also takes amiodarone and metoprolol with adequate rate control. (5) Ischemic cardiomyopathy: Code(s): I25.5 - Ischemic cardiomyopathy Status: Acute Assessment and Plan: Ischemic cardiomyopathy, ejection fraction 30-35%. Sees a rental sales representative in [place] for follow-up Wears a Life Vest (6) Confusion: Code(s): R41.0 - Disorientation, unspecified Status: Acute Assessment and Plan: Confusion weakness, lethargy. Will order blood cultures Further workup per hospitalist (7) End-stage renal disease on hemodialysis: Code(s): N18.6 - End stage renal disease; Z99.2 - Dependence on renal dialysis Status: Chronic Assessment and Plan: I am not able to palpate a vascular thrill over the dialysis site Plan No acute cardiac problems identified, no further cardiology recommendations. Will sign off but please call if we can be of assistance. History of Present Illness History of Present Illness Consult date/time: 10/06/21 17:19 Reason For Visit: Chest pain/Syncopal episode Narrative: David Saleh is a 71 y.o. male whom I was asked to see at the request of CLAIRE Amaro for my advice and opinion regarding his chest pain, consultation. The patient has a history of persistent atrial fibrillation on anticoagulation with warfarin, ischemic cardiomyopathy chronic heart failure and reduced ejection fraction, severe CAD, end-stage renal disease on hemodialysis, sleep apnea, hypertension and hyperlipidemia. His who follows with a rental sales representative at [facility], as ejection fraction is 30-35% He has a LifeVest. He was admitted to [facility] 09/28/2021 with a syncopal episode on dialysis and he felt that is Life Vest had shock term although interrogation showed there was no defibrillation administered. He was also treated for altered mental status thought to be secondary to pain medications, cellulitis and other chronic conditions. Today the patient was sent from [facility] at [facility] for weakness and confusion, and he was unable to stand up. Apparently in the emergency room after phlebotomy had a syncopal episode and when he woke up he apparently complained of chest discomfort His systolic blood pressure in the ER was as low as 71/44 mmHg, now up to 116/85 after receiving some IV fluids There is no report of any arrhythmias. Patient is very somnolent I cannot obtain any history from him L
[2021-10-06 17:54] LABS: Glucose Point of Care 145 mg/dl (65-105)
[2021-10-06] MEDS: MIDODRINE HCL 2.5 MG TABLET 5 MG PO (18:17)
[2021-10-06] MEDS: SODIUM CHLORIDE 1 GM TABLET PO (18:17)
[2021-10-06] MEDS: GABAPENTIN 300 MG CAPSULE PO (18:17)
--- NOTE | 2021-10-06 19:23 | PC.NURSE ---
Pt had 19 beat run of V-tach at 1910. Dr. Jennings notified at 192 of incident. New order for BMP and Mg in AM, and to only call MD if patient has another run of V-tach more than 10 beats.
[2021-10-06 20:24] LABS: Glucose Point of Care 147 mg/dl (65-105)
[2021-10-06] MEDS: DOCUSATE SODIUM 100 MG CAPSULE PO (21:26)
[2021-10-06] MEDS: NORTRIPTYLINE HCL 25 MG CAPSULE PO (21:26)
[2021-10-06] MEDS: ROSUVASTATIN 10 MG TABLET 20 MG PO (21:27)
[2021-10-06] MEDS: POVIDONE-IODINE 10% SOLUTION 118 ML BOTTLE TOPICAL (21:28)
[2021-10-06] MEDS: TRIAMCINOLONE ACET 0.1% CREAM 15 GM TUBE 1 APPLIC TOPICAL (21:28)
[2021-10-06] MEDS: FUROSEMIDE INJ 40 MG/4 ML VIAL 20 MG IV PUSH (21:46)
[2021-10-07] VITALS (37 sets, daily range): BP systolic 106–146; BP diastolic 38–80; PULSE 72–143; RESP 16–24; TEMP 36.2–37; O2SAT 88–97
[2021-10-07] MEDS: METOPROLOL TARTRATE 50 MG TAB PO (00:05)
[2021-10-07 04:58] LABS: Hematocrit 26.5 % (42.0-52.0); Mean Corpuscular Hemoglobin 32.1 pg (26-34); Mean Corpuscular Volume 94.6 fl (80-100); Mean Platelet Volume 9.1 fl (7.4-10.4); Platelet Count Result 444 k/mm3 (150-375); Red Cell Distribution Width 16.3 % (11.5-14.5); White Blood Count 12.5 K/mm3 (4.5-10.0)
[2021-10-07 05:11] LABS: Alanine Aminotransferase 19 U/L (6-50); Albumin Level 2.9 g/dL (3.5-5.1); Alkaline Phosphatase 149 U/L (38-126); Anion Gap 9 mmol/L (8-16); Aspartate Amino Transferase 39 U/L (17-59); Bilirubin,Total 0.5 mg/dL (0.2-1.3); Blood Urea Nitrogen 44 mg/dL (9-20); Calcium 8.7 mg/dL (8.4-10.2); Carbon Dioxide 29 mmol/L (22-30); Chloride 91 mmol/L (98-107); Estimated CRCL calculation 12 ml/min; Estimated Glomerular Filt Rate 10; Glucose 109 mg/dL (65-110); Magnesium 2.2 mg/dL (1.6-2.3); Phosphorus 5.7 mg/dL (2.5-4.5); Potassium 4.2 mmol/L (3.4-5.0); Sodium 129 mmol/L (137-145)
[2021-10-07] MEDS: WATER FOR IRRIGATION, STERILE 1,000 ML BOTTLE 1000 ML (05:37)
[2021-10-07] MEDS: TRIAMCINOLONE ACET 0.1% CREAM 15 GM TUBE 1 APPLIC TOPICAL ×2 (08:30→20:37)
[2021-10-07] MEDS: GABAPENTIN 300 MG CAPSULE PO (08:30)
[2021-10-07] MEDS: DOCUSATE SODIUM 100 MG CAPSULE PO (08:30)
[2021-10-07] MEDS: SODIUM CHLORIDE 1 GM TABLET PO ×3 (08:30→19:07)
[2021-10-07] MEDS: MIDODRINE HCL 2.5 MG TABLET 5 MG PO ×3 (08:31→19:06)
[2021-10-07] MEDS: VITAMIN B CMPLX/VIT C/FOLIC AC 1 CAPSULE 1 CAP PO (08:31)
[2021-10-07] MEDS: FOLIC ACID 0.4 MG TABLET PO (08:31)
[2021-10-07] MEDS: AMIODARONE HCL 200 MG TABLET PO (08:31)
[2021-10-07] MEDS: ASPIRIN 81 MG ENTERIC TABLET PO (08:32)
[2021-10-07] MEDS: LIDOCAINE 5% PATCH 1 PATCH TOPICAL (08:32)
[2021-10-07] MEDS: DOXYCYCLINE HYCLATE 100 MG TABLET PO (08:32)
[2021-10-07] MEDS: FUROSEMIDE 40 MG TABLET PO ×2 (08:33→20:34)
[2021-10-07] MEDS: POVIDONE-IODINE 10% SOLUTION 118 ML BOTTLE TOPICAL ×2 (08:34→20:37)
[2021-10-07 09:59] LABS: INR 4.1; Prothrombin Time 38.8 Seconds (11.1-14.7)
[2021-10-07] MEDS: LORazepam (*CRX) 0.5 MG TABLET PO (10:39)
--- NOTE | 2021-10-07 11:23 | PM.IMPN ---
Progress Note: A&P Assessment and Plan (1) Syncope: Code(s): R55 - Syncope and collapse Status: Acute Assessment and Plan: A recurrent problem for this patient. May be related to orthostatic hypotension though given his cardiomyopathy cannot rule out cardiac dysrhythmia. There was no mention of telemetry alarm on ED documentation, however. Unfortunately he was not wearing his LifeVest at the time as it was removed when he entered the hospital, apparently this is protocol. Continue p.r.n. midodrine. Initiate fall precautions. Monitor orthostatic vital signs. (2) Elevated troponin: Code(s): R79.89 - Other specified abnormal findings of blood chemistry Status: Acute Assessment and Plan: Cardiology consult recommended medical management with aspirin, metoprolol and statin, suspect elevated troponins are secondary to chronic kidney disease (3) Peripheral vascular disease: Code(s): I73.9 - Peripheral vascular disease, unspecified Status: Acute Assessment and Plan: He was scheduled to see a vascular surgeon today for evaluation of dry gangrene of his left 2nd toe. Unfortunately he missed that appointment and hopefully he can get in to see the surgeon soon. (4) End-stage renal disease on hemodialysis: Code(s): N18.6 - End stage renal disease; Z99.2 - Dependence on renal dialysis Status: Chronic Assessment and Plan: Nephrology consulted for dialysis; he is somewhat volume overloaded at this time with edema of the upper extremities and crackles on exam. Continue Lasix with close monitoring of blood pressures. (5) Chronic hyponatremia: Code(s): E87.1 - Hypo-osmolality and hyponatremia Status: Acute Assessment and Plan: Near baseline sodium level. Should improve somewhat with dialysis. (6) Ischemic cardiomyopathy: Code(s): I25.5 - Ischemic cardiomyopathy Status: Acute Assessment and Plan: Recent EF of 30 to 35%. Does have a Life Vest and is followed by a senior business development manager in [place]. (7) Chronic anticoagulation: Code(s): Z79.01 - halfway (current) use of anticoagulants Status: Acute Assessment and Plan: Warfarin is currently on hold as his INR is 4.1. Subjective Date/time seen: 10/07/21 11:23 Interval history: Patient resting comfortably in bed without complaints. He is requesting a pill for his anxiety. He states he has been anxious ever since he got here. He is concerned that he missed of agitation today is really worried about his feet. For dialysis today but they aren't sure they can fit him in today and he is upset about that as well. Review of Systems Review of Systems: Twelve point review of systems was reviewed and is negative except as noted in the HPI Exam Narrative: General: Patient resting comfortably in bed, no acute distress HEENT: Atraumatic, normocephalic, mucous membranes moist CV: Irregularly irregular Lungs: Clear to auscultation bilaterally, no rales or crackles noted, no wheezes, good air entry Abdomen: Soft, nontender, nondistended Extremities: Severely ischemic and gangrenous 2nd toe on the left lower extremity, some ulcerations noted on the right lower extremity on the toes as well, no erythema, warmth, unable to palpate pulses Skin: No rashes noted, no lesions or wounds seen Psych: Euthymic, normal affect Objective Data Vital Signs Vital Signs: Vital Signs - 24 hr 10/06/21 11:26 10/06/21 11:30 10/06/21 11:32 Temperature Pulse Rate 97 91 103 H Respiratory Rate 30 H 31 H 23 H Blood Pressure 88/59 L 87/52 L Pulse Oximetry Oxygen Delivery Oxygen Flow Rate 10/06/21 11:55 10/06/21 12:00 10/06/21 12:15 Temperature Pulse Rate 95 90 92 Respiratory Rate 18 15 10 L Blood Pressure Pulse Oximetry 89 L 91 100 Oxygen Delivery Oxygen Flow Rate 10/06/21 12:30 10/06/21 12:34 10/06/21 12:45 Temperature P
--- NOTE | 2021-10-07 12:00 | PM.CNNEP ---
Assessment and Plan Additional Plan 1. David has end-stage renal disease. This is due to diabetes and hypertension. Vascular disease may have played a role as well. He gets dialysis Wednesdays and Fridays. He will get a dialysis later today. he tends to tolerate dialysis pretty well. It is surprising that if he did not drop his blood pressure while removing fluid in dialysis that he would have low blood pressure in the emergency room. Considerations include sepsis although he does not have a fever and his white count is only slightly elevated. He does take midodrine routinely. I wonder if he got his midodrine routinely yesterday. Perhaps between the recognition of the labs and sending him to the hospital he might have missed a dose of midodrine. Cardiology is seeing the patient about this aspect. Currently his blood pressure is pretty good so I think would be okay to continue dialysis this afternoon. 2. The patient has anemia. We will give Epogen on dialysis. 3. Patient has renal osteodystrophy. Will check a phosphorus level in the morning. 4. He has a history of pulmonary emboli and DVTs. he had been quite noncompliant with his Coumadin at home over the last few years and he had multiple repeat pulmonary emboli. recently, however he has been getting his Coumadin routinely and has not had this problem. 5. He has atrial fibrillation and is on Coumadin for this as well. 6. he had a fainting spell. Unclear what this is from. Cardiology is evaluating him. History of Present Illness Reason for Consult Consult date: 10/07/21 Chief Complaint Chief complaint: Chest pain/Syncopal episode History of Present Illness Narrative: David is a very pleasant 71-year-old gentleman who has multiple medical problems including end-stage renal disease on dialysis 3 times a week, history of DVT and pulmonary embolism on Coumadin, history of cellulitis, poor compliance with fluid intake up until recently, renal osteodystrophy, anemia of chronic kidney disease, hypertension, hyperlipidemia, obstructive sleep apnea, coronary artery disease, diastolic dysfunction, paroxysmal atrial fibrillation, stroke, hyperlipidemia. Patient has been in and out of the hospital several times in the last few months. Sometimes with volume overload, sometimes with cellulitis, sometimes with chest pain. He was just in the hospital over last weekend and was discharged on Sunday evening at 9:00 p.m. and came to dialysis early on Sunday. He had dialysis Sunday and Sunday. Both times his dialysis went very well. He was able to remove fluid and we have lowered his dry weight enabling him to have less swelling. Yesterday the patient had blood work done apparently and the [facility] told him that he had abnormal labs and sent him to the ER. Those labs are unavailable to me but the labs in the ER were typical for a dialysis patient. However while he was in the emergency room he fainted. His blood pressure at the time was only 70. They gave him some fluid and he improved and he was admitted for further evaluation. Cardiology is seeing the patient. He does have chronic hypotension and is on midodrine lately. He says that he has never fainted before though. He does not remember the fainting spell. He does not remember any prodrome will are a such as yawning lightheadedness dizziness etc. He has had no chest pain. He denies any shortness of breath. He has been taking his Coumadin. He has been getting his [facility] at the [facility] he says. Review of Systems Constitutional: Constitutional: Reports no additional constitutional complaints Eyes: Eyes: Reports no additional eye complaints ENT: Reports system reviewed and no additional complaints, except as documented Cardiovascular: Cardiovascular: Reports no additional cardiovascular complaints Respiratory: Respiratory: Reports no additional respiratory complaints Gastroi
[2021-10-07 12:44] LABS: Glucose Point of Care 130 mg/dl (65-105)
[2021-10-07] MEDS: EPOETIN ALFA-EPBX 10,000 UNITS/ML VIAL 10000 UNITS IV PUSH (17:24)
[2021-10-07] MEDS: SODIUM CHLORIDE 0.9% IV 1,000 ML 999 ML IV CONT (17:27)
[2021-10-07] MEDS: METOPROLOL TARTRATE 50 MG TAB 100 MG PO (20:33)
[2021-10-07] MEDS: NORTRIPTYLINE HCL 25 MG CAPSULE PO (20:33)
[2021-10-07] MEDS: ROSUVASTATIN 10 MG TABLET 20 MG PO (20:36)
[2021-10-07] MEDS: GABAPENTIN 300 MG CAPSULE 600 MG PO (20:36)
[2021-10-07 21:17] LABS: Glucose Point of Care 183 mg/dl (65-105)
[2021-10-08] VITALS (12 sets, daily range): BP systolic 105–128; BP diastolic 55–83; PULSE 83–116; RESP 16–25; TEMP 36.4–36.9; O2SAT 93–100
[2021-10-08 06:05] LABS: Albumin Level 2.9 g/dL (3.5-5.1); Anion Gap 6 mmol/L (8-16); Blood Urea Nitrogen 24 mg/dL (9-20); Calcium 8.3 mg/dL (8.4-10.2); Carbon Dioxide 32 mmol/L (22-30); Chloride 98 mmol/L (98-107); Estimated CRCL calculation 18 ml/min; Estimated Glomerular Filt Rate 15; Glucose 119 mg/dL (65-110); Potassium 4.2 mmol/L (3.4-5.0); Sodium 136 mmol/L (137-145)
[2021-10-08 07:50] LABS: Basophils Percent Auto 0.2 % (0.2-1.2); Eosinophils Percent Auto 0.4 % (0-4.4); Hematocrit 25.1 % (42.0-52.0); Hemoglobin 8.1 g/dL (14.0-18.0); Immature Granulocyte Absolute 0.05 K/mm3 (0.00-0.031); Immature Granulocyte Percent A 0.5 % (0-0.5); Lymphocytes Absolute Auto 0.65 K/mm3 (0.9-3.2); Mean Corpuscular HGB Conc 32.3 g/dl (32-36); Mean Corpuscular Hemoglobin 31.5 pg (26-34); Mean Corpuscular Volume 97.7 fl (80-100); Mean Platelet Volume 9.1 fl (7.4-10.4); Monocytes Absolute Auto 1.4 K/mm3 (0.1-0.6); Neutrophils Absolute Auto 7.1 K/mm3 (1.3-6.7); Neutrophils Percent Auto 76.9 % (45.5-73.1); Platelet Count Result 413 k/mm3 (150-375); Red Blood Count 2.57 M/mm3 (4.6-6.20); Red Cell Distribution Width 16.4 % (11.5-14.5); White Blood Count 9.2 K/mm3 (4.5-10.0)
[2021-10-08 07:54] LABS: Glucose Point of Care 127 mg/dl (65-105)
[2021-10-08 08:02] LABS: Alanine Aminotransferase 21 U/L (6-50); Albumin Level 2.9 g/dL (3.5-5.1); Alkaline Phosphatase 161 U/L (38-126); Anion Gap 9 mmol/L (8-16); Aspartate Amino Transferase 37 U/L (17-59); Bilirubin,Total 0.6 mg/dL (0.2-1.3); Blood Urea Nitrogen 25 mg/dL (9-20); Calcium 8.4 mg/dL (8.4-10.2); Carbon Dioxide 30 mmol/L (22-30); Chloride 97 mmol/L (98-107); Estimated CRCL calculation 18 ml/min; Estimated Glomerular Filt Rate 15; Glucose 117 mg/dL (65-110); Potassium 4.2 mmol/L (3.4-5.0); Sodium 136 mmol/L (137-145)
[2021-10-08 08:27] LABS: INR 2.9; Prothrombin Time 29.2 Seconds (11.1-14.7)
[2021-10-08] MEDS: SODIUM CHLORIDE 1 GM TABLET PO (09:11)
[2021-10-08] MEDS: GABAPENTIN 300 MG CAPSULE PO (09:12)
[2021-10-08] MEDS: DOXYCYCLINE HYCLATE 100 MG TABLET PO (09:13)
[2021-10-08] MEDS: MIDODRINE HCL 2.5 MG TABLET 5 MG PO ×2 (09:13→13:12)
[2021-10-08] MEDS: AMIODARONE HCL 200 MG TABLET PO (09:13)
[2021-10-08] MEDS: ASPIRIN 81 MG ENTERIC TABLET PO (09:14)
[2021-10-08] MEDS: DOCUSATE SODIUM 100 MG CAPSULE PO (09:15)
[2021-10-08] MEDS: FOLIC ACID 0.4 MG TABLET PO (09:15)
[2021-10-08] MEDS: LIDOCAINE 5% PATCH 1 PATCH TOPICAL (09:15)
[2021-10-08] MEDS: FUROSEMIDE 40 MG TABLET PO (09:15)
[2021-10-08] MEDS: METOPROLOL TARTRATE 50 MG TAB 100 MG PO (09:15)
[2021-10-08] MEDS: TRIAMCINOLONE ACET 0.1% CREAM 15 GM TUBE 1 APPLIC TOPICAL (09:16)
[2021-10-08] MEDS: VITAMIN B CMPLX/VIT C/FOLIC AC 1 CAPSULE 1 CAP PO (09:16)
[2021-10-08] MEDS: POVIDONE-IODINE 10% SOLUTION 118 ML BOTTLE TOPICAL (09:16)
--- NOTE | 2021-10-08 09:54 | PM.DS ---
DS: Admitting Diagnosis Discharge Date October 08, 2021 Admitting Diagnosis October 06, 2021 DS: Discharge Diagnosis Discharge Diagnosis (1) Syncope: Code(s): R55 - Syncope and collapse Status: Acute Assessment and Plan: A recurrent problem for this patient. May be related to orthostatic hypotension though given his cardiomyopathy cannot rule out cardiac dysrhythmia. There was no mention of telemetry alarm on ED documentation, however. Unfortunately he was not wearing his LifeVest at the time as it was removed when he entered the hospital, apparently this is protocol. Continue p.r.n. midodrine. Initiate fall precautions. Monitor orthostatic vital signs. (2) Elevated troponin: Code(s): R79.89 - Other specified abnormal findings of blood chemistry Status: Acute Assessment and Plan: Cardiology consult recommended medical management with aspirin, metoprolol and statin, suspect elevated troponins are secondary to chronic kidney disease (3) Peripheral vascular disease: Code(s): I73.9 - Peripheral vascular disease, unspecified Status: Acute Assessment and Plan: He was scheduled to see a vascular surgeon today for evaluation of dry gangrene of his left 2nd toe. Unfortunately he missed that appointment and hopefully he can get in to see the surgeon soon. (4) End-stage renal disease on hemodialysis: Code(s): N18.6 - End stage renal disease; Z99.2 - Dependence on renal dialysis Status: Chronic Assessment and Plan: Nephrology consulted for dialysis; he is somewhat volume overloaded at this time with edema of the upper extremities and crackles on exam. Continue Lasix with close monitoring of blood pressures. (5) Chronic hyponatremia: Code(s): E87.1 - Hypo-osmolality and hyponatremia Status: Acute Assessment and Plan: Near baseline sodium level. Should improve somewhat with dialysis. (6) Ischemic cardiomyopathy: Code(s): I25.5 - Ischemic cardiomyopathy Status: Acute Assessment and Plan: Recent EF of 30 to 35%. Does have a Life Vest and is followed by a key account executive in [place]. (7) Chronic anticoagulation: Code(s): Z79.01 - snf (current) use of anticoagulants Status: Acute Assessment and Plan: Warfarin is currently on hold as his INR is 4.1. DS: Summary Hospital Course Reason for hospitalization: Syncopal episode Hospital Course: 71-year-old male with multiple medical problems and multiple recent admissions including paroxysmal atrial fibrillation on long-term anticoagulation, diastolic heart failure, heart disease, end-stage renal disease on hemodialysis, sleep apnea, hyperlipidemia presents to the ER because he was told he had abnormal labs that were drawn at dialysis. The patient has no idea which labs were drawn it was abnormal. All the labs in the ER were consistent with patient's baseline. However, while in the ER, the patient had a syncopal episode. He was then admitted for syncopal workup. There was also some, they may remain on have chest pain. While the H&P was done, the patient denied any chest pain. He does admit to having frequent episodes of lightheadedness and dizziness, mainly positional and worse after dialysis. He did also have hypotension in the ER with a systolic blood pressure in the 70s. Is a known condition of orthostatic hypotension and he is being treated with midodrine. While in the ER Cardiology Nephrology were consulted. Cardiology saw the patient and made no further recommendations. They suggested continuing current medical management including discharge being cautious during position changes. Nephrology performed dialysis and then the patient was discharged back to facility came from. While here, INR was found to be 4.1, Cardiology hold Coumadin for 1 day, he will be discharged back on his home dose with a recheck of his INR soon. Of note, patient does have
[2021-10-08 11:03] LABS: EDCOVIDSCREEN Negative (Negative)
--- NOTE | 2021-10-08 11:28 | PM.PNNEP ---
Progress Note: A&P Additional Plan 1. David has end-stage renal disease. This is due to diabetes and hypertension. Vascular disease may have played a role as well. He gets dialysis Wednesdays and Fridays. he is due for dialysis on Sunday . He did indeed receive only 1 treatment yesterday. 1.5 The patient had low blood pressure yesterday. His cortisol level is okay. His cardiac function is decreased but not that bad. Possibly dehydrated? His blood pressure is doing better today. 2. The patient has anemia. On Epogen on dialysis. 3. Patient has renal osteodystrophy. phosphorus is normal now. 4. He has a history of pulmonary emboli and DVTs. he had been quite noncompliant with his Coumadin at home over the last few years and he had multiple repeat pulmonary emboli. recently, however he has been getting his Coumadin routinely and has not had this problem. 5. He has atrial fibrillation and is on Coumadin for this as well. 6. he had a fainting spell. Due to low blood pressure. Subjective Date/time seen: 10/08/21 11:28 Interval history: Patient says that he received dialysis twice yesterday. He has been trying to get out of bed. A sitter is in the room. Review of Systems Cardiovascular: Cardiovascular: Reports no additional cardiovascular complaints Respiratory: Respiratory: Reports no additional respiratory complaints Gastrointestinal: Gastrointestinal: Reports no additional gastrointestinal complaints Genitourinary: Genitourinary: Reports no additional male genitourinary complaints Exam Narrative: WDWN in NAD skin no rash head ncat lungs clear cor irreg no rub abd BS+ nontender and soft ext 1+ edema. Objective Data Vital Signs Vital Signs: Vital Signs - 24 hr 10/07/21 12:00 10/07/21 12:28 10/07/21 12:00 Temperature 36.6 C Pulse Rate 103 H 106 H Respiratory Rate 16 Blood Pressure 111/49 L 119/59 L Pulse Oximetry 97 Oxygen Delivery Oxygen Flow Rate Fraction of Inspired Oxygen 10/07/21 12:00 10/07/21 14:00 10/07/21 14:55 Temperature 36.6 C Pulse Rate 106 H 102 H 109 H Respiratory Rate 16 18 Blood Pressure 106/50 L Pulse Oximetry 97 Oxygen Delivery Nasal Cannula Oxygen Flow Rate 5 Fraction of Inspired Oxygen 10/07/21 14:55 10/07/21 15:05 10/07/21 15:15 Temperature Pulse Rate 107 H 106 H Respiratory Rate Blood Pressure 134/60 134/38 L Pulse Oximetry Oxygen Delivery Oxygen Flow Rate 5 Fraction of Inspired Oxygen 10/07/21 15:30 10/07/21 16:00 10/07/21 16:15 Temperature Pulse Rate 109 H 112 H 111 H Respiratory Rate Blood Pressure 110/53 L 130/53 L 119/50 L Pulse Oximetry Oxygen Delivery Oxygen Flow Rate Fraction of Inspired Oxygen 10/07/21 16:30 10/07/21 16:45 10/07/21 17:00 Temperature Pulse Rate 112 H 111 H 115 H Respiratory Rate Blood Pressure 146/66 H 123/68 143/58 H Pulse Oximetry Oxygen Delivery Oxygen Flow Rate Fraction of Inspired Oxygen 10/07/21 17:15 10/07/21 17:30 10/07/21 17:26 Temperature Pulse Rate 119 H 108 H Respiratory Rate Blood Pressure 106/55 L 134/54 L Pulse Oximetry Oxygen Delivery BiPAP Oxygen Flow Rate Fraction of Inspired Oxygen 10/07/21 17:45 10/07/21 18:02 10/07/21 18:00 Temperature Pulse Rate 115 H 115 H 118 H Respiratory Rate Blood Pressure 123/60 126/63 Pulse Oximetry Oxygen Delivery Oxygen Flow Rate Fraction of Inspired Oxygen 10/07/21 18:20 10/07/21 18:30 10/07/21 18:59 Temperature Pulse Rate 116 H 118 H 127 H Respiratory Rate Blood Pressure 123/40 L 127/50 L 132/65 Pulse Oximetry Oxygen Delivery Oxygen Flow Rate Fraction of Inspired Oxygen 10/07/21 18:59 10/07/21 20:33 10/07/21 20:00 Temperature 36.5 C 36.7 C Pulse Rate 120 H 130 H 132 H Respiratory Rate 22 H 24 H Blood Pressure 132/65 119/61 Pulse Oximetry
--- NOTE | 2021-10-08 11:40 | PC.NURSE ---
[place] [facility] [place] Gale.
[2021-10-08 11:41] LABS: Glucose Point of Care 212 mg/dl (65-105)
[2021-10-08] MEDS: INSULIN ASPART (*BKC) 100 UNITS/ML SUB-Q (13:10)
--- NOTE | 2021-10-08 17:00 | PC.NURSE ---
Patient discharged to [facility] at 1335. Report was given to nurse Gale.
== END 2021-10-08 13:30 | DRG 312 ==
LOC: ANHED 10:21 → ANHIMU 13:45
PROVIDERS: Internal Medicine Nephrology; Physician Assistant; Admitting Provider Student in an Organized Health Care Education/Training Program; Emergency Provider Nurse Practitioner Family; Visit Provider Student in an Organized Health Care Education/Training Program
DX: I95.1 Orthostatic hypotension (principal); N18.6 End stage renal disease; E87.1 Hypo-osmolality and hyponatremia; I50.32 Chronic diastolic (congestive) heart failure; I13.2 Hypertensive heart and chronic kidney disease with heart failure and with stage 5 chronic kidney disease, or end stage renal disease; E11.52 Type 2 diabetes mellitus with diabetic peripheral angiopathy with gangrene; I96 Gangrene, not elsewhere classified; Z20.822 Contact with and (suspected) exposure to COVID-19; I25.10 Atherosclerotic heart disease of native coronary artery without angina pectoris; E11.22 Type 2 diabetes mellitus with diabetic chronic kidney disease; R77.8 Other specified abnormalities of plasma proteins; I25.5 Ischemic cardiomyopathy; I48.0 Paroxysmal atrial fibrillation; N25.0 Renal osteodystrophy; D63.1 Anemia in chronic kidney disease; I65.23 Occlusion and stenosis of bilateral carotid arteries; G47.33 Obstructive sleep apnea (adult) (pediatric); E78.5 Hyperlipidemia, unspecified; F17.210 Nicotine dependence, cigarettes, uncomplicated; Z99.2 Dependence on renal dialysis; Z79.01 Long term (current) use of anticoagulants; Z95.1 Presence of aortocoronary bypass graft; Z86.718 Personal history of other venous thrombosis and embolism; Z86.711 Personal history of pulmonary embolism; I25.2 Old myocardial infarction; Z91.14 Patient's other noncompliance with medication regimen
CPT/HCPCS: 36415; 36600; 70450; 71045; 80053; 80069; 82533; 82805; 82948; 83735; 84100; 84443; 84484; 85025; 85027; 85610; 85730; 87040; 87426; 93005; 93880; 94002; 94003; 96361; 96374; 99285; A9270; C9803; G0257; G0378; J1815; J1940; J7030; J7040; Q5105

== ENCOUNTER 2021-10-31 10:20 | Emergency (ER) | payer MEDICARE, SELFPAY ==
[2021-10-31] VITALS (35 sets, daily range): BP systolic 93–142; BP diastolic 47–114; PULSE 114–142; RESP 14–30; O2SAT 88–95
--- NOTE | ~2021-10-31 | XR_ITS ---
XR chest 1V portable DATE: 10/31/2021 11:05 INDICATION: Chest pain TECHNIQUE: Portable upright AP chest on 10/2021 at 1059 hours COMPARISON: 10/16/2021 portable AP chest FINDINGS: There is pulmonary vascular congestion and redistribution. There are bilateral pulmonary in filtrates, dictated prominent in the central and lower lung zones. Moderately large bilateral pleural effusions. No pneumothorax is evident. Status post sternotomy. Diffuse osteopenia. IMPRESSION: Congestive heart failure, pulmonary edema and moderately prominent bilateral pleural effu sions Reviewed, dictated and finalized at location A. IMPRESSION: Congestive heart failure, pulmonary edema and moderately prominent bilateral pleural effusions
--- NOTE | 2021-10-31 10:42 | ECG_ITS ---
Measurements Intervals [place] Rate: 132 P: MS: 0 QRS: 40 QRSD: 113 T: 162 QT: 324 QTc: 481 Interpretive Statements ATRIAL FIBRILLATION WITH RAPID VENTRICULAR RESPONSE INTRAVENTRICULAR CONDUCTION DELAY DELAYED PRECORDIAL R/S TRANSITION LOW QRS VOLTAGE IN LIMB LEADS ST-T WAVE ABNORMALITY IN HIGH LATERAL LEADS- CONSIDER ISCHEMIA BASELINE ARTIFACT- I, III, AVL, V1 ABNORMAL ECG Electronically Signed On 10-31-2021 15:15:42 CDT by Cristhian Crane D.O.
--- NOTE | 2021-10-31 10:42 | ED.CHESTPAIN ---
HPI - Chest Pain General Chief Complaint: Chest Pain Stated Complaint: LIFEVEST SHOCKED PT Time Seen by Provider: 10/31/21 10:29 History of Present Illness HPI narrative: pt at dialysis normal day but only got 1.7L off b/c his life vest fired delivering a shock pt had no symptoms prior or after. no cp/sob/n/v/d/loc/neuro changes/med changes/leg or new arm swelling has chronic limb swelling. pt says on dialysis days never takes meds before so nothing today Related Data Home Medications Medication Instructions Recorded Confirmed amiodarone 200 mg tablet 200 mg PO DAILY 04/24/20 10/06/21 albuterol sulfate 90 mcg/actuation 2 inh inhalation Q4H PRN Wheezing 09/23/21 10/06/21 aerosol inhaler aspirin 81 mg tablet,delayed 81 mg PO DAILY 09/23/21 10/06/21 release baclofen 5 mg tablet 5 mg PO Q6H PRN Muscle Spasm 09/23/21 10/06/21 bisacodyl 10 mg rectal suppository 10 mg RECTAL DAILY PRN Constipation 09/23/21 10/06/21 docusate sodium 100 mg capsule 100 mg PO Q12H 09/23/21 10/06/21 folic acid 400 mcg tablet 400 mcg PO DAILY 09/23/21 10/06/21 furosemide 40 mg tablet 40 mg PO Q12H 09/23/21 10/06/21 gabapentin 300 mg capsule 300 mg PO BID 09/23/21 10/06/21 gabapentin 600 mg tablet 600 mg PO HS 09/23/21 10/06/21 lidocaine 5 % topical patch 1 patch topical DAILY 09/23/21 10/06/21 (Lidoderm) magnesium citrate 300 ml PO DAILY PRN Constipation 09/23/21 10/06/21 metoprolol tartrate 100 mg tablet 100 mg PO Q12H 09/23/21 10/06/21 miconazole nitrate 2 % topical 1 applic topical BID PRN Itching 09/23/21 10/06/21 cream (Antifungal Cream (miconazole)) midodrine 5 mg tablet 5 mg PO TID 09/23/21 10/06/21 nitroglycerin 0.4 mg sublingual 0.4 mg sublingual Q5M PRN Chest 09/23/21 10/06/21 tablet Pain nortriptyline 25 mg capsule 25 mg PO HS 09/23/21 10/06/21 rosuvastatin 20 mg tablet 20 mg PO HS 09/23/21 10/06/21 sodium chloride 1 gram tablet 1,000 mg PO TIDWM 09/23/21 10/06/21 warfarin 2.5 mg tablet 2.5 mg PO QPM 09/23/21 10/06/21 magnesium hydroxide 400 mg/5 mL 30 ml PO HS PRN Constipation 09/28/21 10/06/21 oral suspension (Milk of Magnesia) sodium phosphates 19 gram-7 118 ml RECTAL DAILY PRN 09/28/21 10/06/21 gram/118 mL enema (Fleet Enema) Constipation triamcinolone acetonide 0.1 % 1 applic topical Q12H 09/28/21 10/06/21 topical cream povidone-iodine 10 % topical 1 applic topical Q12H 10/06/21 10/06/21 solution (Betadine) vitamin B complex-vitamin C-folic 1 tablet PO DAILY 10/06/21 10/06/21 acid 0.8 mg tablet (Kalina-Zaria) lorazepam 0.5 mg tablet tablet 10/31/21 Allergies Allergy/AdvReac Type Severity Reaction Status Date / Time atorvastatin Allergy Unknown Rash Verified 10/31/21 10:30 morphine Allergy Unknown Verified 10/31/21 10:30 Penicillins Allergy Unknown Verified 10/31/21 10:30 Review of Systems Constitutional: Comments: CONSTITUTIONAL: Denies fever, chills, or sweats. EYES: Denies visual changes, redness, or discharge. ENT: Denies rhinorrhea, congestion, sore throat, or otalgia. CARDIOVASCULAR: Denies chest pain, palpitations, or edema. RESPIRATORY: Denies cough or dyspnea. GASTROINTESTINAL: Denies abdominal pain, nausea, vomiting, or diarrhea. GENITOURINARY: Denies dysuria or hematuria. SKIN: Denies rash or itching. MUSCULOSKELETAL: Denies back pain, joint pain, or myalgia. NEUROLOGIC: Denies headache, numbness, or weakness. PSYCHIATRIC: Denies anxiety or depression. [facility] Past Medical History Medical History Abdominal aortic aneurysm Stable mid abdominal aortic saccular aneurysm measuring 4.2 cm on imaging dated 01/21/2020. Bacterial infection due to Proteus mirabilis (10/2018) Secondary to infected dialysis catheter. C. 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 Chronic anemia Chronic anticoagulation Chronic hyponatremia Chronic respiratory failure with hypoxia, on home oxygen therapy On 2 L cipriano
[2021-10-31] MEDS: ASPIRIN 81 MG CHEWABLE TABLET 324 MG PO (11:08)
[2021-10-31] MEDS: AMIODARONE HCL 200 MG TABLET PO (11:08)
[2021-10-31 11:13] LABS: Basophils Absolute Auto 0.1 K/mm3 (0.0-0.1); Basophils Percent Auto 1.1 % (0.2-1.2); Eosinophils Absolute Auto 0.4 K/mm3 (0-0.3); Eosinophils Percent Auto 3.3 % (0-4.4); Hematocrit 25.8 % (42.0-52.0); Hemoglobin 8.3 g/dL (14.0-18.0); Immature Granulocyte Absolute 0.07 K/mm3 (0.00-0.031); Immature Granulocyte Percent A 0.7 % (0-0.5); Lymphocytes Absolute Auto 0.94 K/mm3 (0.9-3.2); Lymphocytes Percent Auto 8.9 % (18.3-44.2); Mean Corpuscular HGB Conc 32.2 g/dl (32-36); Mean Corpuscular Hemoglobin 32.2 pg (26-34); Mean Platelet Volume 8.6 fl (7.4-10.4); Monocytes Absolute Auto 1.8 K/mm3 (0.1-0.6); Monocytes Percent Auto 17.4 % (2.6-8.5); Neutrophils Absolute Auto 7.2 K/mm3 (1.3-6.7); Neutrophils Percent Auto 68.6 % (45.5-73.1); Platelet Count Result 472 k/mm3 (150-375); Red Blood Count 2.58 M/mm3 (4.6-6.20); Red Cell Distribution Width 18.2 % (11.5-14.5); White Blood Count 10.6 K/mm3 (4.5-10.0)
[2021-10-31 11:25] LABS: Alanine Aminotransferase 18 U/L (6-50); Albumin Level 3.7 g/dL (3.5-5.1); Alkaline Phosphatase 111 U/L (38-126); Anion Gap 9 mmol/L (8-16); Aspartate Amino Transferase 25 U/L (17-59); Bilirubin,Total 0.6 mg/dL (0.2-1.3); Blood Urea Nitrogen 25 mg/dL (9-20); Carbon Dioxide 31 mmol/L (22-30); Chloride 91 mmol/L (98-107); Estimated CRCL calculation 16 ml/min; Estimated Glomerular Filt Rate 12; Glucose 145 mg/dL (65-110); Potassium 4.2 mmol/L (3.4-5.0); Sodium 131 mmol/L (137-145)
[2021-10-31 11:26] LABS: INR 2.2; Partial Thromboplastin Time 47.5 SECONDS (22.3-36.8); Prothrombin Time 23.6 Seconds (11.1-14.7)
[2021-10-31 11:38] LABS: NT Pro B Type Natriuretic Pept > 35000 pg/mL (5-100)
[2021-10-31] MEDS: METOPROLOL TARTRATE 50 MG TAB 100 MG PO (12:53)
[2021-10-31] MEDS: FUROSEMIDE 20 MG TABLET 40 MG PO (12:53)
[2021-10-31 15:55] LABS: Troponin I 0.043 ng/mL (0.000-0.034)
== END 2021-10-31 14:00 | disposition short-term general hospital (02) ==
PROVIDERS: Emergency Provider Emergency Medicine; PCP Family Medicine
DX: I48.0 Paroxysmal atrial fibrillation (principal); I50.9 Heart failure, unspecified; I69.951 Hemiplegia and hemiparesis following unspecified cerebrovascular disease affecting right dominant side; E11.22 Type 2 diabetes mellitus with diabetic chronic kidney disease; I13.2 Hypertensive heart and chronic kidney disease with heart failure and with stage 5 chronic kidney disease, or end stage renal disease; D63.1 Anemia in chronic kidney disease; N18.6 End stage renal disease; Z99.2 Dependence on renal dialysis; E87.1 Hypo-osmolality and hyponatremia; I25.10 Atherosclerotic heart disease of native coronary artery without angina pectoris; J96.11 Chronic respiratory failure with hypoxia; F41.8 Other specified anxiety disorders; E78.5 Hyperlipidemia, unspecified; I25.5 Ischemic cardiomyopathy; Z86.14 Personal history of Methicillin resistant Staphylococcus aureus infection; G47.33 Obstructive sleep apnea (adult) (pediatric); E11.51 Type 2 diabetes mellitus with diabetic peripheral angiopathy without gangrene; I73.9 Peripheral vascular disease, unspecified; I25.2 Old myocardial infarction; Z95.1 Presence of aortocoronary bypass graft; Z86.711 Personal history of pulmonary embolism; Z99.81 Dependence on supplemental oxygen; F17.210 Nicotine dependence, cigarettes, uncomplicated; Z79.01 Long term (current) use of anticoagulants; Z79.82 Long term (current) use of aspirin; R94.31 Abnormal electrocardiogram [ECG] [EKG]; I45.9 Conduction disorder, unspecified; Z95.810 Presence of automatic (implantable) cardiac defibrillator
CPT/HCPCS: 36415; 71045; 80053; 80299; 83735; 83880; 84484; 85025; 85610; 85730; 93005; 99285; A9270

== ENCOUNTER 2021-11-05 23:53 | Emergency (ER) | payer MEDICARE, SELFPAY ==
--- NOTE | ~2021-11-05 | XR_ITS ---
EXAMINATION: XR hip RT min 3V w AP pelvis DATE: 11/06/2021 01:45 INDICATION: Fall from bed with right hip pain TECHNIQUE: Anteroposterior view of the pelvis and anteroposterior and frog-leg lateral views of the r ight hip were obtained. COMPARISON: None. FINDINGS: Bone alignment is normal. No fracture. Mild lumbar spondylosis and mild bilateral hip and sacroiliac osteoarthritis. Extensive atherosclerotic calcifications throughout the pelvis and proximal thighs. IMPRESSION: 1. Mild degenerative skeletal changes. No acute osseous abnormality. Reviewed, dictated and finalized at location A.
--- NOTE | ~2021-11-05 | XR_ITS ---
EXAMINATION: XR elbow RT min 3V DATE: 11/06/2021 01:45 INDICATION: Abrasions to the right elbow post fall TECHNIQUE: Anteroposterior, oblique and lateral views of the right elbow were obtained. COMPARISON: None. FINDINGS: Alignment is normal. No fracture. Mild osteoarthritis at the right elbow with no joint effusion. Vasc ular stent along one and of a dialysis loop graft at the distal upper arm and proximal forearm. Scatt ered atherosclerotic calcifications. No other radiopaque foreign bodies. IMPRESSION: 1. No right elbow joint effusion or acute osseous abnormality. Reviewed, dictated and finalized at location A.
--- NOTE | ~2021-11-05 | CT_ITS ---
EXAMINATION: CT brain wo con DATE: 11/06/2021 00:43 INDICATION: Head injury and anticoagulated patient post fall TECHNIQUE: Computed tomography (CT) of the head was performed without intravenous contrast. Sagittal and coronal reconstructions were performed. The mA was adjusted according to patient size. Iterative reconstruction technique was employed. The dose-length product was 605.33 mGy-cm. COMPARISON: head CT dated 10/16/2021 FINDINGS: No fracture. Multiple small regions of encephalomalacia consistent with chronic infarcts seen in the bilateral frontal and parietal lobes, the right occipital lobe bilateral cerebellar hemispheres, righ t thalamus and left basal ganglia. No acute intracranial hemorrhage, acute infarction or abnormal ext ra axial fluid collection. Symmetric prominence of the sulci and ventricles consistent with moderate age-appropriate diffuse cerebral volume loss. No mass/mass effect. Intracranial calcified cerebral at herosclerosis is noted. The orbits, paranasal sinuses and mastoid air cells are normal. IMPRESSION: 1. No fracture or acute intracranial process. 2. Multiple small old infarcts scattered throughout the brain as detailed above. Reviewed, dictated and finalized at location A. IMPRESSION: 1. No fracture or acute intracranial process. 2. Multiple small old infarcts scattered throughout the brain as detailed above .
[2021-11-05 23:54] VITALS: BP 126/70; PULSE 98; RESP 18; TEMP 36.6; O2SAT 97
--- NOTE | 2021-11-06 00:25 | ED.FALL ---
HPI - Fall General Chief Complaint: Fall Stated Complaint: fall out of bed Time Seen by Provider: 11/06/21 00:16 Source: patient History of Present Illness HPI Narrative: Patient presents after a fall. Patient was sleeping in bed when he rolled out landing on his right hip and elbow patient also feels like he struck his head. He is on blood thinners he was referred to the ER for further evaluation. Patient was sleeping on his back prodrome such as chest pain shortness of breath. Denies any chest pain shortness of breath headache change in vision focal numbness or weakness. Denies any nausea vomiting or diarrhea. Ports pain in his right hip and elbow that is achy, constant, worse with using the affected extremity, pain does not radiate. Related Data Home Medications Medication Instructions Recorded Confirmed amiodarone 200 mg tablet 200 mg PO DAILY 04/24/20 10/06/21 albuterol sulfate 90 mcg/actuation 2 inh inhalation Q4H PRN Wheezing 09/23/21 10/06/21 aerosol inhaler aspirin 81 mg tablet,delayed 81 mg PO DAILY 09/23/21 10/06/21 release baclofen 5 mg tablet 5 mg PO Q6H PRN Muscle Spasm 09/23/21 10/06/21 bisacodyl 10 mg rectal suppository 10 mg RECTAL DAILY PRN Constipation 09/23/21 10/06/21 docusate sodium 100 mg capsule 100 mg PO Q12H 09/23/21 10/06/21 folic acid 400 mcg tablet 400 mcg PO DAILY 09/23/21 10/06/21 furosemide 40 mg tablet 40 mg PO Q12H 09/23/21 10/06/21 gabapentin 300 mg capsule 300 mg PO BID 09/23/21 10/06/21 gabapentin 600 mg tablet 600 mg PO HS 09/23/21 10/06/21 lidocaine 5 % topical patch 1 patch topical DAILY 09/23/21 10/06/21 (Lidoderm) magnesium citrate 300 ml PO DAILY PRN Constipation 09/23/21 10/06/21 metoprolol tartrate 100 mg tablet 100 mg PO Q12H 09/23/21 10/06/21 miconazole nitrate 2 % topical 1 applic topical BID PRN Itching 09/23/21 10/06/21 cream (Antifungal Cream (miconazole)) midodrine 5 mg tablet 5 mg PO TID 09/23/21 10/06/21 nitroglycerin 0.4 mg sublingual 0.4 mg sublingual Q5M PRN Chest 09/23/21 10/06/21 tablet Pain nortriptyline 25 mg capsule 25 mg PO HS 09/23/21 10/06/21 rosuvastatin 20 mg tablet 20 mg PO HS 09/23/21 10/06/21 sodium chloride 1 gram tablet 1,000 mg PO TIDWM 09/23/21 10/06/21 warfarin 2.5 mg tablet 2.5 mg PO QPM 09/23/21 10/06/21 magnesium hydroxide 400 mg/5 mL 30 ml PO HS PRN Constipation 09/28/21 10/06/21 oral suspension (Milk of Magnesia) sodium phosphates 19 gram-7 118 ml RECTAL DAILY PRN 09/28/21 10/06/21 gram/118 mL enema (Fleet Enema) Constipation triamcinolone acetonide 0.1 % 1 applic topical Q12H 09/28/21 10/06/21 topical cream povidone-iodine 10 % topical 1 applic topical Q12H 10/06/21 10/06/21 solution (Betadine) vitamin B complex-vitamin C-folic 1 tablet PO DAILY 10/06/21 10/06/21 acid 0.8 mg tablet (Kalina-Zaria) lorazepam 0.5 mg tablet tablet 10/31/21 Allergies Allergy/AdvReac Type Severity Reaction Status Date / Time atorvastatin Allergy Unknown Rash Verified 10/31/21 10:30 morphine Allergy Unknown Verified 10/31/21 10:30 Penicillins Allergy Unknown Verified 10/31/21 10:30 Review of Systems Review of Systems: CONSTITUTIONAL: Denies fever, chills, or sweats. EYES: Denies visual changes, redness, or discharge. ENT: Denies rhinorrhea, congestion, sore throat, or otalgia. CARDIOVASCULAR: Denies chest pain, palpitations, or edema. RESPIRATORY: Denies cough or dyspnea. GASTROINTESTINAL: Denies abdominal pain, nausea, vomiting, or diarrhea. GENITOURINARY: Denies dysuria or hematuria. SKIN: Denies rash or itching. MUSCULOSKELETAL: Denies back pain, or myalgia. NEUROLOGIC: Denies headache, numbness, dizziness, or weakness. PSYCHIATRIC: Denies anxiety or depression. All systems reviewed & are unremarkable except as noted in HPI and below [facility] Past Medical History Medical History Abdominal aortic aneurysm Stable mid abdominal aortic saccular aneurysm measuring 4.2 cm on imaging date
[2021-11-06 02:13] VITALS: BP 106/64; PULSE 99; RESP 14; O2SAT 96
[2021-11-06 04:16] VITALS: BP 148/81; PULSE 96; RESP 16; O2SAT 96
[2021-11-06 06:19] VITALS: BP 95/55; PULSE 84; RESP 14; O2SAT 100
== END 2021-11-06 06:40 ==
PROVIDERS: Emergency Provider Emergency Medicine; PCP Internal Medicine
DX: S79.911A Unspecified injury of right hip, initial encounter (principal); S51.011A Laceration without foreign body of right elbow, initial encounter; I48.0 Paroxysmal atrial fibrillation; I50.9 Heart failure, unspecified; I69.951 Hemiplegia and hemiparesis following unspecified cerebrovascular disease affecting right dominant side; E11.22 Type 2 diabetes mellitus with diabetic chronic kidney disease; I13.2 Hypertensive heart and chronic kidney disease with heart failure and with stage 5 chronic kidney disease, or end stage renal disease; D63.1 Anemia in chronic kidney disease; N18.6 End stage renal disease; Z99.2 Dependence on renal dialysis; E11.51 Type 2 diabetes mellitus with diabetic peripheral angiopathy without gangrene; I73.9 Peripheral vascular disease, unspecified; E87.1 Hypo-osmolality and hyponatremia; I25.10 Atherosclerotic heart disease of native coronary artery without angina pectoris; J96.11 Chronic respiratory failure with hypoxia; F41.8 Other specified anxiety disorders; E78.5 Hyperlipidemia, unspecified; I25.2 Old myocardial infarction; Z86.14 Personal history of Methicillin resistant Staphylococcus aureus infection; G47.33 Obstructive sleep apnea (adult) (pediatric); Z95.1 Presence of aortocoronary bypass graft; Z86.711 Personal history of pulmonary embolism; Z99.81 Dependence on supplemental oxygen; F17.210 Nicotine dependence, cigarettes, uncomplicated; Z79.01 Long term (current) use of anticoagulants; Z79.82 Long term (current) use of aspirin; W06.XXXA Fall from bed, initial encounter
CPT/HCPCS: 70450; 73080; 73502; 99284

== ENCOUNTER 2021-11-17 05:58 | Emergency (ER) | payer MEDICARE, SELFPAY ==
--- NOTE | ~2021-11-17 | CT_ITS ---
EXAMINATION: CT brain wo con DATE: 11/17/2021 08:04 INDICATION: Fall with head injury TECHNIQUE: Computed tomography (CT) of the head was performed without intravenous contrast. Sagittal and coronal reconstructions were performed. The mA was adjusted according to patient size. Iterative reconstruction technique was employed. The dose-length product was 681.00 mGy-cm. COMPARISON: head CT dated 11/06/2021 FINDINGS: No fracture. No acute intracranial hemorrhage, acute infarction or abnormal extra axial fluid collect ion. Small old lacunar infarcts at the right thalamus and left lentiform nucleus. Several additional scattered small old infarcts including at the bilateral frontal and parietal lobes, the left occipita l lobe and at the bilateral cerebellar hemispheres. There is moderate scattered white matter hypoatte nuation consistent with chronic small vessel ischemic disease. Symmetric prominence of the sulci and ventricles consistent with moderate age-appropriate diffuse cerebral volume loss. No mass/mass effect . The orbits, paranasal sinuses and mastoid air cells are normal. Extensive intracranial and extracra nial calcified cerebral atherosclerosis is noted. IMPRESSION: 1. No fracture or acute intracranial process. 2. Multiple small old infarcts scattered throughout the brain as detailed above. Reviewed, dictated and finalized at location A. IMPRESSION: 1. No fracture or acute intracranial process. 2. Multiple small old infarcts scattered throughout the brain as detailed above .
--- NOTE | ~2021-11-17 | XR_ITS ---
XR foot RT min 3V DATE: 11/17/2021 08:19 INDICATION: Pain. Multiple diabetic wound. TECHNIQUE: 3 views COMPARISON: None FINDINGS: Extensive anterior and posterior tibial calcification as well as metatarsal artery and digi anushka artery calcifications, consistent with history of diabetes. There is soft tissue swelling of the foot. Moderately prominent plantar calcaneal enthesopathy without associated erosive change or periostitis. There is a small chronic smoothly marginated bony density at the medial aspect of the first metatarso phalangeal joint. No recent fracture or dislocation. No periosteal reaction or bone destruction is detected. IMPRESSION: Extensive arterial calcification consistent with history of diabetes Soft tissue swelling of the right foot No fracture, dislocation or bone destruction No radiographic evidence of osteomyelitis is detected Reviewed, dictated and finalized at location B. IMPRESSION: Extensive arterial calcification consistent with history of diabete s Soft tissue swelling of the right foot No fracture, dislocation or bone destruction No radiographic evidence of osteomyelitis is detected
--- NOTE | ~2021-11-17 | XR_ITS ---
EXAMINATION: XR foot LT min 3V DATE: 11/17/2021 08:19 INDICATION: Left foot pain and multiple diabetic wounds. TECHNIQUE: Dorsoplantar, two oblique and lateral views of the left foot were obtained. COMPARISON: 09/29/2021 and 10/09/2018 FINDINGS: Alignment is normal. No fracture. Mild polyarticular osteoarthritis at the ankle and multiple joints throughout the left foot. No cortical erosions or periosteal reaction to suggest osteomyelitis. Small plantar calcaneal spur. Mild diffuse soft tissue swelling about the left foot and ankle. Extensive s cattered vascular calcifications. No left ankle joint effusion. IMPRESSION: 1. Mild polyarticular osteoarthritis throughout the left foot. No findings to suggest osteomyelitis o r other acute osseous abnormalities Reviewed, dictated and finalized at location A. IMPRESSION: 1. Mild polyarticular osteoarthritis throughout the left foot. No findings to s uggest osteomyelitis or other acute osseous abnormalities
[2021-11-17 06:01] VITALS: BP 108/56; PULSE 94; RESP 18; O2SAT 96
[2021-11-17 07:49] VITALS: BP 118/71; PULSE 107; RESP 18; O2SAT 94
[2021-11-17 07:59] LABS: Basophils Absolute Auto 0.1 K/mm3 (0.0-0.1); Basophils Percent Auto 1.1 % (0.2-1.2); Eosinophils Absolute Auto 0.6 K/mm3 (0-0.3); Eosinophils Percent Auto 5.8 % (0-4.4); Hematocrit 25.1 % (42.0-52.0); Hemoglobin 7.9 g/dL (14.0-18.0); Immature Granulocyte Absolute 0.04 K/mm3 (0.00-0.031); Immature Granulocyte Percent A 0.4 % (0-0.5); Lymphocytes Absolute Auto 1.11 K/mm3 (0.9-3.2); Mean Corpuscular HGB Conc 31.5 g/dl (32-36); Mean Corpuscular Hemoglobin 30.7 pg (26-34); Mean Corpuscular Volume 97.7 fl (80-100); Mean Platelet Volume 8.4 fl (7.4-10.4); Monocytes Absolute Auto 1.6 K/mm3 (0.1-0.6); Monocytes Percent Auto 16.3 % (2.6-8.5); Neutrophils Absolute Auto 6.6 K/mm3 (1.3-6.7); Neutrophils Percent Auto 65.4 % (45.5-73.1); Platelet Count Result 357 k/mm3 (150-375); Red Blood Count 2.57 M/mm3 (4.6-6.20); Red Cell Distribution Width 16.5 % (11.5-14.5); White Blood Count 10.1 K/mm3 (4.5-10.0)
[2021-11-17 08:08] LABS: Alanine Aminotransferase 16 U/L (6-50); Alkaline Phosphatase 141 U/L (38-126); Anion Gap 6 mmol/L (8-16); Aspartate Amino Transferase 27 U/L (17-59); Bilirubin,Total 0.4 mg/dL (0.2-1.3); Blood Urea Nitrogen 17 mg/dL (9-20); Calcium 8.1 mg/dL (8.4-10.2); Carbon Dioxide 31 mmol/L (22-30); Chloride 90 mmol/L (98-107); Estimated CRCL calculation 19 ml/min; Estimated Glomerular Filt Rate 16; Glucose 110 mg/dL (65-110); Potassium 4.5 mmol/L (3.4-5.0); Sodium 127 mmol/L (137-145)
[2021-11-17 08:09] LABS: INR 2.1; Prothrombin Time 22.4 Seconds (11.1-14.7)
--- NOTE | 2021-11-17 08:09 | ED.FALL ---
HPI - Fall General Chief Complaint: Fall Stated Complaint: ROLLED OUT OF BED Time Seen by Provider: 11/17/21 07:05 Source: patient, EMS, RN notes reviewed and old records reviewed Mode of arrival: EMS Limitations: other (poor historian) History of Present Illness HPI Narrative: This is a 71 year old male with history of ESRD on dialysis, chronic anticoagulation, atrial fibrillation, peripheral arterial disease who presents for evaluation after falling out of bed. Patient states he was rolling over in bed and accidentally fell out of bed onto his left side. He states is not having any new pain from his fall. He does not think he hit his head but he does take warfarin for anticoagulation. Patient has severe PAD and he has multiple known ulceration to toes on his right foot. He is complaining of right heel pain for the past week. He also had necrotic toes of his left foot. Patient is poor historian. He states having being recommended to see vascular surgeon. Notes from previous hospitalizations state that patient is suppose to have appointment with vascular surgery. Related Data Home Medications Medication Instructions Recorded Confirmed amiodarone 200 mg tablet 200 mg PO DAILY 04/24/20 10/06/21 albuterol sulfate 90 mcg/actuation 2 inh inhalation Q4H PRN Wheezing 09/23/21 10/06/21 aerosol inhaler aspirin 81 mg tablet,delayed 81 mg PO DAILY 09/23/21 10/06/21 release baclofen 5 mg tablet 5 mg PO Q6H PRN Muscle Spasm 09/23/21 10/06/21 bisacodyl 10 mg rectal suppository 10 mg RECTAL DAILY PRN Constipation 09/23/21 10/06/21 docusate sodium 100 mg capsule 100 mg PO Q12H 09/23/21 10/06/21 folic acid 400 mcg tablet 400 mcg PO DAILY 09/23/21 10/06/21 furosemide 40 mg tablet 40 mg PO Q12H 09/23/21 10/06/21 gabapentin 300 mg capsule 300 mg PO BID 09/23/21 10/06/21 gabapentin 600 mg tablet 600 mg PO HS 09/23/21 10/06/21 lidocaine 5 % topical patch 1 patch topical DAILY 09/23/21 10/06/21 (Lidoderm) magnesium citrate 300 ml PO DAILY PRN Constipation 09/23/21 10/06/21 metoprolol tartrate 100 mg tablet 100 mg PO Q12H 09/23/21 10/06/21 miconazole nitrate 2 % topical 1 applic topical BID PRN Itching 09/23/21 10/06/21 cream (Antifungal Cream (miconazole)) midodrine 5 mg tablet 5 mg PO TID 09/23/21 10/06/21 nitroglycerin 0.4 mg sublingual 0.4 mg sublingual Q5M PRN Chest 09/23/21 10/06/21 tablet Pain nortriptyline 25 mg capsule 25 mg PO HS 09/23/21 10/06/21 rosuvastatin 20 mg tablet 20 mg PO HS 09/23/21 10/06/21 sodium chloride 1 gram tablet 1,000 mg PO TIDWM 09/23/21 10/06/21 warfarin 2.5 mg tablet 2.5 mg PO QPM 09/23/21 10/06/21 magnesium hydroxide 400 mg/5 mL 30 ml PO HS PRN Constipation 09/28/21 10/06/21 oral suspension (Milk of Magnesia) sodium phosphates 19 gram-7 118 ml RECTAL DAILY PRN 09/28/21 10/06/21 gram/118 mL enema (Fleet Enema) Constipation triamcinolone acetonide 0.1 % 1 applic topical Q12H 09/28/21 10/06/21 topical cream povidone-iodine 10 % topical 1 applic topical Q12H 10/06/21 10/06/21 solution (Betadine) vitamin B complex-vitamin C-folic 1 tablet PO DAILY 10/06/21 10/06/21 acid 0.8 mg tablet (Kalina-Zaria) lorazepam 0.5 mg tablet tablet 10/31/21 Allergies Allergy/AdvReac Type Severity Reaction Status Date / Time atorvastatin Allergy Unknown Rash Verified 11/17/21 06:09 morphine Allergy Unknown Verified 11/17/21 06:09 Penicillins Allergy Unknown Verified 11/17/21 06:09 Review of Systems Review of Systems: All systems reviewed & are unremarkable except as noted in HPI and below Constitutional: Constitutional: Denies chills and Denies fatigue ENT: Denies nasal congestion Cardiovascular: Cardiovascular: Denies chest pain and Denies radiating jaw, neck or arm pain Respiratory: Respiratory: Denies chest congestion, Denies cough and Denies dyspnea PMFSH Past Medical History Medical History Abdominal aortic aneurysm Stable mid abdomin
[2021-11-17 08:10] LABS: Partial Thromboplastin Time 42.4 SECONDS (22.3-36.8)
--- NOTE | 2021-11-17 08:12 | ECG_ITS ---
Measurements Intervals [place] Rate: 100 P: MS: 0 QRS: 89 QRSD: 118 T: 240 QT: 403 QTc: 521 Interpretive Statements ATRIAL FIBRILLATION WITH RAPID VENTRICULAR RESPONSE INTRAVENTRICULAR CONDUCTION DELAY DELAYED PRECORDIAL R/S TRANSITION LOW QRS VOLTAGE IN LIMB LEADS BORDERLINE ST-T WAVE ABNORMALITY- INF/LAT LEADS BASELINE ARTIFACT- I, II, III ABNORMAL ECG Electronically Signed On 11-17-2021 9:47:59 CDT by Cristhian Crane D.O.
[2021-11-17 08:39] VITALS: BP 109/72; PULSE 97; RESP 16; O2SAT 93
[2021-11-17 09:55] VITALS: BP 103/75; PULSE 105; RESP 16; O2SAT 93
--- NOTE | 2021-11-17 10:23 | PC.NURSE ---
Attempted to call report to [facility], no answer from staff.
== END 2021-11-17 11:18 ==
PROVIDERS: Emergency Provider General Practice; PCP Internal Medicine
DX: I13.2 Hypertensive heart and chronic kidney disease with heart failure and with stage 5 chronic kidney disease, or end stage renal disease (principal); E11.22 Type 2 diabetes mellitus with diabetic chronic kidney disease; N18.6 End stage renal disease; I50.9 Heart failure, unspecified; I69.951 Hemiplegia and hemiparesis following unspecified cerebrovascular disease affecting right dominant side; I25.10 Atherosclerotic heart disease of native coronary artery without angina pectoris; E87.1 Hypo-osmolality and hyponatremia; J96.11 Chronic respiratory failure with hypoxia; I48.0 Paroxysmal atrial fibrillation; I25.5 Ischemic cardiomyopathy; E78.5 Hyperlipidemia, unspecified; I25.2 Old myocardial infarction; N25.0 Renal osteodystrophy; G47.33 Obstructive sleep apnea (adult) (pediatric); E11.51 Type 2 diabetes mellitus with diabetic peripheral angiopathy without gangrene; I73.9 Peripheral vascular disease, unspecified; Z99.81 Dependence on supplemental oxygen; Z95.1 Presence of aortocoronary bypass graft; Z79.01 Long term (current) use of anticoagulants; Z99.2 Dependence on renal dialysis; Z86.718 Personal history of other venous thrombosis and embolism; Z86.711 Personal history of pulmonary embolism; Z86.14 Personal history of Methicillin resistant Staphylococcus aureus infection; F17.210 Nicotine dependence, cigarettes, uncomplicated; M19.072 Primary osteoarthritis, left ankle and foot; Z79.82 Long term (current) use of aspirin; W06.XXXA Fall from bed, initial encounter
CPT/HCPCS: 36415; 70450; 73630; 80053; 85025; 85610; 85730; 93005; 99284

== ENCOUNTER 2021-11-20 19:36 | Emergency (ER) | payer MEDICARE, SELFPAY ==
[2021-11-20] VITALS (11 sets, daily range): BP systolic 96–122; BP diastolic 58–87; PULSE 90–110; RESP 13–18; TEMP 37.1; O2SAT 95–99
--- NOTE | ~2021-11-20 | CT_ITS ---
EXAMINATION: CT brain wo con DATE: 11/20/2021 20:36 INDICATION: AMS . TECHNIQUE: Computed tomography (CT) of the head was performed without intravenous contrast. The mA wa s adjusted according to patient size. Iterative reconstruction technique was employed. The dose-lengt h product was 605.33 mGy-cm. COMPARISON: 11/17/2021 FINDINGS: No acute intracranial hemorrhage or extra-axial fluid collection. No hydrocephalus, mass, or herniation. No acute ischemic infarct. Unremarkable dural venous sinus attenuation. No acute osseous abnormality. The aerated spaces are clear. Moderate atrophy and chronic white matter change. Scattered areas of cerebral cortical encephalomalac ia. 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 Atherosclerotic intracranial opacifications. IMPRESSION: No acute intracranial process. Reviewed, dictated and finalized at location [facility].
--- NOTE | 2021-11-20 19:41 | ECG_ITS ---
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
--- NOTE | 2021-11-20 20:18 | ED.GENADULT ---
HPI - General Adult General Chief complaint: Altered Mental Status Stated complaint: Confusion? a/ox3, from ID Time Seen by Provider: 11/20/21 19:53 History of Present Illness HPI narrative: 71-year-old male presenting to the emergency department for evaluation of increased confusion. 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 Patient is otherwise alert and oriented. Patient is able to provide his past medical history. Patient is AO x3. Patient is aware of the president and the year. Patient denies any complaints. Patient states he is unsure if he has had a fall. 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 Previous documentation in the EMR states that the half-way is aware and patient is scheduled to have follow-up with vascular surgery. Patient also has a chronic wound on his left heel that is also being cared for. Related Data Home Medications Medication Instructions Recorded Confirmed amiodarone 200 mg tablet 200 mg PO DAILY 04/24/20 10/06/21 albuterol sulfate 90 mcg/actuation 2 inh inhalation Q4H PRN Wheezing 09/23/21 10/06/21 aerosol inhaler aspirin 81 mg tablet,delayed 81 mg PO DAILY 09/23/21 10/06/21 release baclofen 5 mg tablet 5 mg PO Q6H PRN Muscle Spasm 09/23/21 10/06/21 bisacodyl 10 mg rectal suppository 10 mg RECTAL DAILY PRN Constipation 09/23/21 10/06/21 docusate sodium 100 mg capsule 100 mg PO Q12H 09/23/21 10/06/21 folic acid 400 mcg tablet 400 mcg PO DAILY 09/23/21 10/06/21 furosemide 40 mg tablet 40 mg PO Q12H 09/23/21 10/06/21 gabapentin 300 mg capsule 300 mg PO BID 09/23/21 10/06/21 gabapentin 600 mg tablet 600 mg PO HS 09/23/21 10/06/21 lidocaine 5 % topical patch 1 patch topical DAILY 09/23/21 10/06/21 (Lidoderm) magnesium citrate 300 ml PO DAILY PRN Constipation 09/23/21 10/06/21 metoprolol tartrate 100 mg tablet 100 mg PO Q12H 09/23/21 10/06/21 miconazole nitrate 2 % topical 1 applic topical BID PRN Itching 09/23/21 10/06/21 cream (Antifungal Cream (miconazole)) midodrine 5 mg tablet 5 mg PO TID 09/23/21 10/06/21 nitroglycerin 0.4 mg sublingual 0.4 mg sublingual Q5M PRN Chest 09/23/21 10/06/21 tablet Pain nortriptyline 25 mg capsule 25 mg PO HS 09/23/21 10/06/21 rosuvastatin 20 mg tablet 20 mg PO HS 09/23/21 10/06/21 sodium chloride 1 gram tablet 1,000 mg PO TIDWM 09/23/21 10/06/21 warfarin 2.5 mg tablet 2.5 mg PO QPM 09/23/21 10/06/21 magnesium hydroxide 400 mg/5 mL 30 ml PO HS PRN Constipation 09/28/21 10/06/21 oral suspension (Milk of Magnesia) sodium phosphates 19 gram-7 118 ml RECTAL DAILY PRN 09/28/21 10/06/21 gram/118 mL enema (Fleet Enema) Constipation triamcinolone acetonide 0.1 % 1 applic topical Q12H 09/28/21 10/06/21 topical cream povidone-iodine 10 % topical 1 applic topical Q12H 10/06/21 10/06/21 solution (Betadine) vitamin B complex-vitamin C-folic 1 tablet PO DAILY 10/06/21 10/06/21 acid 0.8 mg tablet (Kalina-Zaria) lorazepam 0.5 mg tablet tablet 10/31/21 Allergies Allergy/AdvReac Type Severity Reaction Status Date / Time atorvastatin Allergy Unknown Rash Verified 11/17/21 06:09 morphine Allergy Unknown Verified 11/17/21 06:09 Penicillins Allergy Unknown Verified 11/17/21 06:09 Review of Systems Review of Systems: CONSTITUTIONAL: Denies fever, chills, or sweats. EYES: Denies visual changes, redness, or discharge. ENT: Denies rhinorrhea, congestion, sore throat, or otalgia. CARDIOVASCULAR: Denies chest pain, palpitations, or edema. RESPIRATORY: Denies cough or dyspnea. GASTROINTESTINAL: Denies abdominal pain, nausea, vomiting, or diarrhea. GENITOURINARY: Denies dysuria or hematuria. SKIN: See HPI MUSCULOSKELETAL: Denies back pain, joint pain, or myalgia. NEUROLOGIC: Denies headache, numbness, or weakness. COUNT INCLUDES THE [facility] Past Medical History Medical History Abdomin
[2021-11-20 20:29] LABS: Basophils Absolute Auto 0.1 K/mm3 (0.0-0.1); Basophils Percent Auto 0.7 % (0.2-1.2); Eosinophils Absolute Auto 0.3 K/mm3 (0-0.3); Eosinophils Percent Auto 3.5 % (0-4.4); Hematocrit 23.9 % (42.0-52.0); Hemoglobin 8.1 g/dL (14.0-18.0); Immature Granulocyte Absolute 0.04 K/mm3 (0.00-0.031); Immature Granulocyte Percent A 0.5 % (0-0.5); Lymphocytes Absolute Auto 1.02 K/mm3 (0.9-3.2); Lymphocytes Percent Auto 12.3 % (18.3-44.2); Mean Corpuscular HGB Conc 33.9 g/dl (32-36); Mean Corpuscular Hemoglobin 31.9 pg (26-34); Mean Corpuscular Volume 94.1 fl (80-100); Mean Platelet Volume 8.4 fl (7.4-10.4); Monocytes Absolute Auto 1.2 K/mm3 (0.1-0.6); Monocytes Percent Auto 14.4 % (2.6-8.5); Neutrophils Absolute Auto 5.7 K/mm3 (1.3-6.7); Neutrophils Percent Auto 68.6 % (45.5-73.1); Platelet Count Result 363 k/mm3 (150-375); Red Blood Count 2.54 M/mm3 (4.6-6.20); White Blood Count 8.3 K/mm3 (4.5-10.0)
[2021-11-20 20:40] LABS: INR 2.3; Prothrombin Time 24.3 Seconds (11.1-14.7)
[2021-11-20 20:41] LABS: Partial Thromboplastin Time 49.7 SECONDS (22.3-36.8)
[2021-11-20 20:45] LABS: Lactic Acid Reflex 2.4 mmol/L (0.7-2.0)
[2021-11-20 20:46] LABS: Alanine Aminotransferase 16 U/L (6-50); Alkaline Phosphatase 139 U/L (38-126); Anion Gap 12 mmol/L (8-16); Aspartate Amino Transferase 30 U/L (17-59); Bilirubin,Total 0.4 mg/dL (0.2-1.3); Blood Urea Nitrogen 20 mg/dL (9-20); Calcium 8.4 mg/dL (8.4-10.2); Carbon Dioxide 29 mmol/L (22-30); Chloride 85 mmol/L (98-107); Estimated Glomerular Filt Rate 12; Glucose 148 mg/dL (65-110); Sodium 126 mmol/L (137-145)
--- NOTE | 2021-11-20 23:01 | PC.NURSE ---
Report received from MADAI Ibarra. Assumed care of patient at this time.
[2021-11-20 23:21] LABS: Reflex Lactic Acid Yes or No Add Lactic
== END 2021-11-20 23:58 ==
PROVIDERS: Emergency Provider Emergency Medicine; PCP Internal Medicine
DX: R41.82 Altered mental status, unspecified (principal); I13.2 Hypertensive heart and chronic kidney disease with heart failure and with stage 5 chronic kidney disease, or end stage renal disease; E11.22 Type 2 diabetes mellitus with diabetic chronic kidney disease; N18.6 End stage renal disease; I50.9 Heart failure, unspecified; I69.951 Hemiplegia and hemiparesis following unspecified cerebrovascular disease affecting right dominant side; I25.10 Atherosclerotic heart disease of native coronary artery without angina pectoris; E11.51 Type 2 diabetes mellitus with diabetic peripheral angiopathy without gangrene; I73.9 Peripheral vascular disease, unspecified; E87.1 Hypo-osmolality and hyponatremia; J96.11 Chronic respiratory failure with hypoxia; I48.0 Paroxysmal atrial fibrillation; I25.2 Old myocardial infarction; N25.0 Renal osteodystrophy; G47.33 Obstructive sleep apnea (adult) (pediatric); Z99.81 Dependence on supplemental oxygen; Z95.1 Presence of aortocoronary bypass graft; Z99.2 Dependence on renal dialysis; Z86.718 Personal history of other venous thrombosis and embolism; Z86.14 Personal history of Methicillin resistant Staphylococcus aureus infection; F17.210 Nicotine dependence, cigarettes, uncomplicated; Z79.01 Long term (current) use of anticoagulants; Z79.82 Long term (current) use of aspirin
CPT/HCPCS: 36415; 70450; 80053; 83605; 85025; 85610; 85730; 93005; 99284